=== PATIENT | male | born 1985 | race Caucasian/White ===

== ENCOUNTER 2024-01-23 17:34 | Emergency (ER) | payer OTHER, SELFPAY ==
[2024-01-23 17:43] VITALS: BP 115/79; PULSE 107; TEMP 36.9; O2SAT 97; BMI 24.6
--- NOTE | 2024-01-23 17:55 | CT_ITS ---
[address] [address] Patient Name: LAWANDA RAND MRN: [id number] date: 1985 Sex: M Assigned Patient Location: ER Current Patient Location: ER Accession/Order Number: [id number] Exam Date: 01/23/2024 18:15 Report Date: 01/23/2024 19:39 At the request of: MARY THORNTON Procedure: CT facial bones wo con EXAM: CT facial bones wo con COMPARISON: None available. CLINICAL INDICATION: Left facial swelling after nasal fracture TECHNIQUE: Multiplanar CT images of the facial bones without contrast. Dose reduction techniques were achieved by using automated exposure control and/or adjustment of mA and/or kV according to patient size and/or use of iterative reconstruction technique. FINDINGS: Acute-subacute nasal bone fracture noted. Specifically acute-subacute mildly comminuted minimally displaced/angulated fracture of the left nasal bone. Leftward deviation of the nasal septum with apparent nasal septal fracture on coronal image 7. Acute-subacute comminuted mildly displaced fracture of the left inferior orbital wall as well as the anterior and medial kirby of the left maxillary sinus. Mild-moderate opacification of the left inferior maxillary sinus. Paranasal sinuses otherwise clear. Mastoid air cells clear. Mild left infraorbital-paramaxillary soft tissue swelling and mild paranasal soft tissue swelling. No left retrobulbar hematoma. CT/CT facial bones wo con IMPRESSION: 1. Acute-subacute nasal bone fracture detailed above. 2. Acute-subacute comminuted mildly displaced fracture of the left inferior orbital wall and the anterior and medial kirby of the left maxillary sinus. 3. Mild left infraorbital-paramaxillary soft tissue swelling and mild paranasal soft tissue swelling. No left retrobulbar hematoma. Electronically authenticated by: ZANE CASTELLANO Date: 01/23/2024 19:39
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
[2024-01-23 18:20] LABS: Basophils Percent Auto 0.4 % (0.2-2.0); Eosinophils Absolute Auto 0.1 10^3/uL (0.0-0.7); Eosinophils Percent Auto 0.7 % (0.9-7.0); Hematocrit 45.4 % (42.0-54.0); Hemoglobin 15.4 g/dL (14.0-18.0); Immature Granulocytes Abs Auto 0.02 10^3/uL (0.00-0.03); Immature Granulocytes Pct Auto 0.3 % (0.0-0.5); Lymphocytes Absolute Auto 1.5 10^3/uL (1.2-3.8); Lymphocytes Percent Auto 20.2 % (20.5-60.0); Mean Corpuscular HGB Conc 33.9 g/dL (29.9-35.2); Mean Corpuscular Hemoglobin 30.8 pg (25.9-34.0); Mean Corpuscular Volume 90.8 fL (80.0-94.0); Monocytes Absolute Auto 0.7 10^3/uL (0.3-0.8); Monocytes Percent Auto 9.6 % (1.7-12.0); Neutrophils Absolute Auto 5.1 10^3/uL (1.4-6.5); Neutrophils Percent Auto 68.8 % (43.0-75.0); Platelet Count 346 10^3/uL (150-450); Red Cell Distribution Width 13.5 % (11.0-15.0); White Blood Count 7.5 10^3/uL (4.0-11.0)
[2024-01-23 18:31] LABS: Anion Gap 14.4; Calcium 9.4 mg/dL (8.5-10.1); Carbon Dioxide 27.3 mmol/L (21.0-32.0); Chloride 100 mmol/L (98-107); Estimated GFR (African America >60 (>=60); Estimated GFR (Non-African Ame 54 (>=60); Glucose 98 mg/dL (74-106); Potassium 4.7 mmol/L (3.5-5.1); Sodium 137 mmol/L (136-145)
== END 2024-01-23 20:17 | disposition home or self-care (01) ==
PROVIDERS: Physician Assistant; Emergency Provider Emergency Medicine; PCP Family Medicine
DX: S02.32XA Fracture of orbital floor, left side, initial encounter for closed fracture (principal); S02.19XA Other fracture of base of skull, initial encounter for closed fracture; S02.2XXA Fracture of nasal bones, initial encounter for closed fracture; W50.0XXA Accidental hit or strike by another person, initial encounter
CPT/HCPCS: 36415; 70486; 80048; 85025; 99284

== ENCOUNTER 2024-05-05 07:04 | Outpatient (OUT) | payer OTHER, SELFPAY ==
--- NOTE | 2024-05-05 | MR_ITS ---
The [address] [address] Patient Name: LAWANDA RAND MRN: [id number] date: 1985 Sex: M Assigned Patient Location: CARD Current Patient Location: CARD Accession/Order Number: [id number] Exam Date: 05/05/2024 07:48 Report Date: 05/05/2024 11:29 At the request of: RANDY BOSCH Procedure: MR head/brain wo con EXAM: MR head/brain wo con HISTORY: Memory loss COMPARISON: None. TECHNIQUE: MRI of the brain was performed without contrast. FINDINGS: There is no restricted diffusion to suggest acute infarct. There is no midline shift, mass effect, or abnormal extraaxial fluid collections. The cortical sulci and ventricular system are within normal limits. There is focal enlargement of CSF space posterior to the cerebellum, likely represent jason cisterna magna or arachnoid cyst. The major intracranial flow voids are visualized. The cerebellar tonsils are normal in position. The orbits are unremarkable. The paranasal sinuses show no air-fluid level. The mastoid air cells are clear. The calvarium and extracranial soft tissues are unremarkable. MR/MR head/brain wo con IMPRESSION: No acute intracranial abnormality. No evidence for a specific neurodegenerative process. Electronically authenticated by: GHULAM ARREDONDO Date: 05/05/2024 11:29
--- NOTE | 2024-05-05 | XR_ITS ---
The [address] [address] Patient Name: LAWANDA RAND MRN: [id number] date: 1985 Sex: M Assigned Patient Location: CARD Current Patient Location: CARD Accession/Order Number: [id number] Exam Date: 05/05/2024 08:25 Report Date: 05/05/2024 08:47 At the request of: RANDY BOSCH Procedure: XR chest 2V PROCEDURE: XR chest 2V DATE: 05/05/2024 7:25 AM CDT COMPARISONS: None. CLINICAL INDICATION: 38 years Male Acute bronchitis FINDINGS: The cardiomediastinal silhouette and pulmonary vasculature are within normal limits. The lungs are clear. There is no evidence of pleural effusion or pneumothorax. XR/XR chest 2V IMPRESSION: Chest radiograph is within normal limits. Electronically authenticated by: CAESAR LOTT Date: 05/05/2024 08:47
--- NOTE | 2024-05-05 07:07 | CA_ITS ---
Patient Name: LAWANDA RAND MR#: [id number] : 1985 Exam Date: 05/05/2024 Ordering Doctor: DR RANDY BOSCH . ECHOCARDIOGRAM REPORT PROCEDURE: CA ECHO DOPPLER COMPLETE INDICATIONS: Hypotension COMPARISON: None. DESCRIPTION: COMPLETE ECHOCARDIOGRAM Real-time transthoracic echocardiography with 2D, M-mode, spectral and color flow Doppler performed. QUALITY: Technical quality was good. LEFT VENTRICLE: Normal chamber size. Normal left ventricular wall thickness. LV EF: Global left ventricular systolic function is normal. Calculated left ventricular ejection fraction is 60%. No wall motion abnormalities. DIASTOLIC: Normal diastolic function. ATRIAL SEPTUM: Inadequately seen. LEFT ATRIUM: Normal chamber size. RIGHT ATRIUM: Normal chamber size. RIGHT VENTRICLE: Normal chamber size. Normal right ventricular systolic function. TRICUSPID VALVE: Normal mobility and thickness. No stenosis with trivial regurgitation. No evidence of pulmonary hypertension. RVSP 18mmHg MITRAL VALVE: Normal mobility and thickness. No evidence of mitral valve stenosis. There is no mitral annular calcification. Trivial mitral regurgitation. AORTIC VALVE: Normal trileaflet appearance. No visible sclerosis. Normal leaflet mobility. No evidence of aortic valve stenosis. No aortic regurgitation. AORTIC ROOT: Normal diameter and appearance. PULMONIC VALVE: Normal thickness and mobility. No stenosis. No regurgitation. PERICARDIUM: No evidence of pericardial effusion. CONCLUSION: 1. Global left ventricular systolic function is normal; visually estimated ejection fraction is 60 to 65% 2. Normal right ventricular size and systolic function 3. Normal diastolic function 4. The left atrium is normal in size 5. No obvious valvular abnormalities Adult Echocardiography Procedure Report Left Ventricle LVEDD (3.7 - 5.6 cm): 3.94 cm LVESD (2.2 - 4.0 cm): 2.71 cm LVIVS thickness (0.6 - 1.2 cm): 0.86 cm LVPW thickness (0.5 - 1.0 cm): 0.84 cm e': 0.13 m/s E - e': 5.22 LVOT Max Gradient: 2.95 mm[Hg], 2.95 mm[Hg] LVOT Area (cm2): 0.86 m/s Peak Velocity (LVOT): 0.86 m/s, 0.86 m/s Mean Velocity (LVOT): 0.62 m/s LVOT Diameter 2.14 cm Left Ventricular Ejection Fraction: 59.81 % Left Atrium LA Volume Index (2D A2C): 20.01 ml/m2 Left Atrium Systolic Dimension: 2.75 cm Mitral Valve MV E to A Ratio: 0.98 Mitral Valve A-Wave Peak Velocity: 0.69 m/s Mitral Valve E-Wave Peak Velocity: 0.67 m/s Right Ventricle RV Internal Diastolic Dimension: 2.85 cm Aorta AO Root Diam: 3.19 cm Ascending Ao Diam: 3.14 cm Aortic Valve AoV Area (Peak Chilo): 3.15 cm2, 3.15 cm2 AoV Area (VTI): 3.94 cm2, 3.88 cm2 Peak Velocity(Antegrade Flow): 0.98 m/s Peak Gradient(Antegrade Flow): 3.85 mm[Hg] Mean Velocity(Antegrade Flow): 0.67 m/s Mean Gradient(Antegrade Flow): 2.07 mm[Hg] Velocity Time Integral: 14.59 cm Tricuspid Valve Peak Velocity (Regurgitant Flow): 1.96 m/s, 1.70 m/s, 1.92 m/s, 1.93 m/s, 1.96 m/s Pulmonic Valve Peak Velocity: 0.86 m/s Peak Gradient: 2.94 mm[Hg], 2.99 mm[Hg] Right Atrium Right Atrium Systolic Pressure: 27.31 ml, 27.31 ml Dictated by: Ngozi Rainey M.D. on 05/07/2024 at 16:33 Approved by: Ngozi Rainey M.D. on 05/07/2024 at 16:38
--- OUTSIDE RECORDS SUMMARY | 2024-05-05 07:08 | XMS_ITS | CCD ---
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 Condition ([place]) What reading provider will be dictating this exam?->CRC No acute intracrania l abnormality. Soft tissue swelling in the right frontoparietal region. [facility] EXAMINATION: CT OF THE HEAD WITHOUT CONTRAST 07/08/2021 7:35 pm TECHNIQUE: CT of the head was performed without the administration of intravenous contrast. Dose modulation, iterative reconstruction, and/or weight based adjustment of the mA/kV was utilized to reduce the radiation dose to as low as reasonably achievable. COMPARISON: None. HISTORY: ORDERING SYSTEM PROVIDED HISTORY: Trauma TECHNOLOGIST PROVIDED HISTORY: Has a code stroke or stroke alert been called?->No Reason for exam:->Trauma Decision Support Exception - unselect if not a suspected or confirmed emergency medical condition->Emergency Medical Condition ([place]) What reading provider will be dictating this exam?->CRC FINDINGS: BRAIN/VENTRICLES: There is no acute intracranial hemorrhage, mass effect or midline shift. No abnormal extra-axial fluid collection. The sarmiento-white differentiation is maintained without evidence of an acute infarct. There is no evidence of hydrocephalus. ORBITS: The visualized portion of the orbits demonstrate no acute abnormality. SINUSES: Th there is mucosal thickening in right maxillary sinus. SOFT TISSUES/SKULL: No acute abnormality of the visualized skull. There is soft tissue swelling in the right frontoparietal region. [facility] Sonny Domingo MD - 07/08 EXAMINATION: CT OF THE HEAD WITHOUT CONTRAST 07/08/2021 7:35 pm TECHNIQUE: CT of the head was performed without the administration of intravenous contrast. Dose modulation, iterative reconstruction, and/or weight based adjustment of the mA/kV was utilized to reduce the radiation dose to as low as reasonably achievable. COMPARISON: None. HISTORY: ORDERING SYSTEM PROVIDED HISTORY: Trauma TECHNOLOGIST PROVIDED HISTORY: Has a code stroke or stroke alert been called?->No Reason for exam:->Trauma Decision Support Exception - unselect if not a suspected or confirmed emergency medical condition->Emergency Medical Condition ([place]) What reading provider will be dictating this exam?->CRC FINDINGS: BRAIN/VENTRICLES: There is no acute intracranial hemorrhage, mass effect or midline shift. No abnormal extra-axial fluid collection. The sarmiento-white differentiation is maintained without evidence of an acute infarct. There is no evidence of hydrocephalus. ORBITS: The visualized portion of the orbits demonstrate no acute abnormality. SINUSES: Th there is mucosal thickening in right maxillary sinus. SOFT TISSUES/SKULL: No acute abnormality of the visualized skull. There is soft tissue swelling in the right frontoparietal region. IMPRESSION: No acute intracranial abnormality. Soft tissue swelling in the right frontoparietal region. [employer] Phone: CT HEAD WO CONTRASTOrdered B y: Sonny Domingo on 07-08-2021 [employer] Phone: No Panel Informationon 07-08 Radiology Study observation (narrative) [employer] Phone: THC,Serum/Plasma,[place] 05-23 Cannabinoids, S/P 62 ng/mL Normal [place] Comment on above: Result Comment: (NOT E) INTERPRETIVE INFORMATION: THC Metabolite, Serum or Plasma, Quantitative Methodology: Quantitative Liquid Chromatography-Tandem Mass Spectrometry. Positive cutoff: 5 ng/mL For medical purposes only; not valid for forensic use. The drug analyte detected in this assay, 9-carboxy THC, is a metabolite of ywdux-0-bhmqzdvdadmvpmveusmt (THC). Detection of 9-carboxy THC suggests use of, or exposure to, a product containing THC. This test cannot distinguish between prescribed or non-prescribed forms of THC, nor can it distinguish between active or passive use. The plasma half-life for 9-carboxy THC metabolite is estimated to range from 4-12 hours. Test developed and characteristics determined by [employer]. See Compliance Statement B: [employer] Performed By: [employer] [address] [place] [id number] [employer]: Terese Muniz MD Performed By: #### C DP, CP, LIPR, TSHX, TREP, HIVCMB, HSVPR #### [address] [address] Box Folding Machine Operator: Satya Valdez MD #### AHCGEN #### [address] [address] Box Folding Machine Operator: Remi Harman MD Amphetamine, Serumon 020 Amphetamine <20 Normal [facility] Comment on above: Result Comment: (NOT E) INTERPRETIVE INFORMATION: Amphetamines, Serum or Plasma, Quantitative Methodology: Quantitative Liquid Chromatography-Tandem Mass Spectrometry Positive cutoff: 20 ng/mL For medical purposes only; not valid for forensic use. The absence of expected drug(s) and/or drug metabolite(s) may indicate non-compliance, inappropriate timing of specimen collection relative to drug administration, poor drug absorption, or limitations of testing. The concentration value must be greater than or equal to the cutoff to be reported as positive. Interpretive questions should be directed to the laboratory. Test developed and characteristics determined by [employer]. See Compliance Statement B: [employer] Performed By: #### C DP, CP, LIPR, TSHX, TREP, HIVCMB, HSVPR #### [address] [address] Box Folding Machine Operator: Satya Valdez MD #### AHCGEN #### [facility] [address] [employer] [address] [place] [address] [phone] Box Folding Machine Operator: Remi Harman MD M.dioxyamphetamin e <20 Normal [facility] Comment on above: Performed By: #### C DP, CP, LIPR, TSHX, TREP, HIVCMB, HSVPR #### [address] [address] Box Folding Machine Operator: Satya Valdez MD #### AHCGEN #### [facility] [address] [place] [address] Box Folding Machine Operator: MD Alvin Meléndez.dioxyethylamphe t <20 Normal [facility] Comment on above: Result Comment: (NOT E) Performed By: [address] [address] [employer] Marketing: Terese Muniz MD Performed By: #### C DP, CP, LIPR, TSHX, TREP, HIVCMB, HSVPR #### [address] [address] Box Folding Machine Operator: Satya Valdez MD #### AHCGEN #### [facility] [address] [place] [address] Box Folding Machine Operator: MD Alvin Meléndez.dioxymethylamph et <20 [facility] Comment on above: Performed By: #### C DP, CP, LIPR, TSHX, TREP, HIVCMB, HSVPR #### [address] [address] Box Folding Machine Operator: Satya Valdez MD #### AHCGEN #### [address] [address] Box Folding Machine Operator: Remi Harman MD Methamphetamine 462 ng/mL [facility] Comment on above: Result Comment: (NOT E) Consistent with use of a drug containing methamphetamine. Methamphetamine is metabolized to amphetamine. Amphetamine and methamphetamine exist in d- and l-isomeric forms. These forms are not distinguished by this test. Isomeric separation is available separately for an additional charge. Performed By: #### C DP, CP, LIPR, TSHX, TREP, HIVCMB, HSVPR #### [address] [address] Box Folding Machine Operator: Satya Valdez MD #### AHCGEN #### [facility] [address] [place] [phone] Box Folding Machine Operator: Remi Harman MD HCV Genotype, PCRon 05-21-20 20 HCV Genotype, PCR 2b Normal [place] Comment on above: Result Comment: (NOT E) INTERPRETIVE INFORMATION: Hepatitis C Genotyping Hepatitis C Viral RNA is tested using reverse occupational health physiotherapist polymerase chain reaction (RT-PCR) to amplify a specific portion of the 5' untranslated region (5' UTR) of the viral genome. The amplified nucleic acid is sequenced bi-directionally using dye-terminator chemistry (Intrallect). Sequencing data is compared to a database of characterized sequences. Isolates of hepatitis C virus are grouped into six major genotypes (1-6). These genotypes are subtyped according to sequence characteristics. Due to high conservation of the 5' un-translated region of the HCV genome, this test has limitations in differentiating subtype 1a from 1b. Therefore, these subtypes will be reported as 1a or 1b. In rare instances, Type 6 virus may be misclassified as Type 1. Test developed and characteristics determined by [employer]. See Compliance Statement B: [employer] Performed By: [employer] [address] [place] [id number] [employer]vp Marketing: Terese Muniz MD Performed By: #### C DP, CP, LIPR, TSHX, TREP, HIVCMB, HSVPR #### [facility] [address] [place] [address] Box Folding Machine Operator: Satya Valdez MD #### AHCGEN #### [employer] [address] [place] [address] Box Folding Machine Operator: Remi Harman MD Liver Fibrosis Panelon 05-21 A2 Macroglob, Fibro 240 mg/dL Normal 131-293 [facility] Comment on above: Performed By: #### C DP, CP, LIPR, TSHX, TREP, HIVCMB, HSVPR #### [facility] [address] [place] [address] [phone] Box Folding Machine Operator: Satya Valdez MD #### AHCGEN #### [employer] [address] [place] [phone] Box Folding Machine Operator: Remi Harman MD ALT, Fibro 58 U/L High 5-50 [facility] Comment on above: Performed By: #### C DP, CP, LIPR, TSHX, TREP, HIVCMB, HSVPR #### [address] [phone] Box Folding Machine Operator: Satya Valdez MD #### AHCGEN #### [facility] [address] [place] [phone] Box Folding Machine Operator: Remi Harman MD AST, Fibro 38 U/L Normal 9-50 [facility] Comment on above: Performed By: #### C DP, CP, LIPR, TSHX, TREP, HIVCMB, HSVPR #### [address] [phone] Box Folding Machine Operator: Satya Valdez MD #### AHCGEN #### [facility] [address] [place] [phone] Box Folding Machine Operator: Remi Harman MD CirrhM Patient Score 0 Normal [facility] Comment on above: Performed By: #### C DP, CP, LIPR, TSHX, TREP, HIVCMB, HSVPR #### [address] [phone] Box Folding Machine Operator: Satya Valdez MD #### AHCGEN #### [facility] [address] [place] [address] [phone] Box Folding Machine Operator: Remi Harman MD EER Fibro Rpt See Note Normal [facility] Comment on above: Result Comment: (NOT E) Access [email or web address] Enhanced Report using either link below: -Direct access: [email or web address] -Enter Username, Password: [email or web address] Route Username: [email or web address] Password: [email or web address] Performed By: #### C DP, CP, LIPR, TSHX, TREP, HIVCMB, HSVPR #### [facility] [address] [place] [address] Box Folding Machine Operator: Satya Valdez MD #### AHCGEN #### [facility] [address] [place] [address] Box Folding Machine Operator: Remi Harman MD Fibro Interpretation See Report Normal [facility] Comment on above: Result Comment: (NOT E) [17] [16] INTERPRETIVE INFORMATION: Fibrometer Interpretation Calculations for the final report are based on accurate data for age, gender, and platelet count. If any of this information needs to be corrected, please contact [employer] Client Services to request a recalculation. Client Services may be contacted at . The [employer] FibroMeter profile serves as a surrogate marker of liver fibrosis, cirrhosis, and necro-inflammatory activity. A proprietary algorithm calculates and compares results from 7 blood markers along with age and gender to provide a patient score (from 0 to 1) and a correlated fibrosis stage (Metavir F0-F4) and activity grade (Metavir A0-A3). The fibrosis/cirrhosis score is further evaluated by a rules-based system to detect anomalous profile results which may modify the fibrosis/cirrhosis score as needed. Results should be interpreted in conjunction with the patient's clinical history; particularly when the rules-based system has modified the scores. Legend: -Metavir is a histological scoring system for determining the extent of liver fibrosis and inflammation. STAGE OF FIBROSIS (F scale) F0 = no fibrosis F1 = portal fibrosis without septa F2 = portal fibrosis with few septa F3 = numerous septa without cirrhosis F4 = cirrhosis GRADE OF NECRO-INFLAMMATORY ACTIVITY (A scale) A0 = no activity A1 = mild activity A2 = moderate activity A3 = severe activity -Platelet count result provided by client. -The Prothrombin Index test expresses the Prothrombin Time (PT) as a percentage of normal, and is used to standardize PT results across different instrument/reagent combinations. Test developed and characteristics determined by [employer]. See Compliance Statement B: [employer] Performed By: [employer] [address] [place] [id number] Svp Marketing: Terese Muniz MD Performed By: #### C DP, CP, LIPR, TSHX, TREP, HIVCMB, HSVPR #### [address] [address] Box Folding Machine Operator: Satya Valdez MD #### [place] #### [facility] [address] [place] [address] Box Folding Machine Operator: Remi Harman MD Fibro Metavir Class SEE NOTE Normal [facility] Comment on above: Result Comment: (NOT E) Results for Fibrosis Metavir Classification: F1[F1-F2] INTERPRETIVE INFORMATION: Fibrosis Metavir Classification FibroMeter (fibrosis score) comments F0/F1 Equal probability between F0 and F1 F1[F1-F2] Predominance of F1, but F2 is possible F2[F1-F2] Predominance of F2, but F1 is possible F2[F1-F3] Predominance of F2, but F1 and F3 are possible F2/F3 Equal probability between F2 and F3 F3[F2-F4] Predominance of F3, but F2 and F4 are possible F3[F3-F4] Predominance of F3, but F4 is possible F4[F3-F4] Predominance of F4, but F3 is possible Performed By: #### C DP, CP, LIPR, TSHX, TREP, HIVCMB, HSVPR #### [address] [address] Box Folding Machine Operator: Satya Valdez MD #### [place] #### [facility] [address] [place] [address] Box Folding Machine Operator: Remi Harman MD FibroM Patient Score 0.19 Normal [facility] Comment on above: Performed By: #### C DP, CP, LIPR, TSHX, TREP, HIVCMB, HSVPR #### [address] [address] Box Folding Machine Operator: Satya Valdez MD #### AHCGEN #### [facility] [address] [place] [address] Box Folding Machine Operator: Remi Harman MD GGT, Fibro 26 U/L Normal 7-51 [facility] Comment on above: Performed By: #### C DP, CP, LIPR, TSHX, TREP, HIVCMB, HSVPR #### [address] [address] Box Folding Machine Operator: Satya Valdez MD #### AHCGEN #### [facility] [address] [place], [place] [phone] Box Folding Machine Operator: Remi Harman MD InflaM Metavir Class A1/A2 Normal [facility] Comment on above: Result Comment: (NOT E) INTERPRETIVE INFORMATION: InflaMeter Metavir Classification InflaMeter (activity score) comments A0/A1 Equal probability between A0 and A1 A1/A2 Equal probability between A1 and A2 A2/A3 Equal probability between A2 and A3 Performed By: #### C DP, CP, LIPR, TSHX, TREP, HIVCMB, HSVPR #### [address] [address] Box Folding Machine Operator: Satya Valdez MD #### AHCGEN #### [address] [address] Box Folding Machine Operator: Remi Harman MD InflaM Patient Score 0.28 Normal [facility] Comment on above: Performed By: #### C DP, CP, LIPR, TSHX, TREP, HIVCMB, HSVPR #### [address] [address] Box Folding Machine Operator: Satya Valdez MD #### AHCGEN #### [facility] [address] [place] [address] Box Folding Machine Operator: Remi Harman MD Prothrombin Index 103 % Normal 90-120 [place] Comment on above: Performed By: #### C DP, CP, LIPR, TSHX, TREP, HIVCMB, HSVPR #### [address] [address] Box Folding Machine Operator: Satya Valdez MD #### AHCGEN #### [facility] [address] [place] [address] Box Folding Machine Operator: Remi Harman MD Urea nitrogen [Mass/Vol] 17 mg/dL Normal 7-20 [facility] Comment on above: Performed By: #### C DP, CP, LIPR, TSHX, TREP, HIVCMB, HSVPR #### [address] [address] Box Folding Machine Operator: Satya Valdez MD #### AHCGEN #### [address] [address] Box Folding Machine Operator: Remi Harman MD Drugs of Abuse, S/Ed 2019 Amphetamines, S/P Positive Normal Cutoff 20 [place] Comment on above: Result Comment: (NOT E) If the screen is positive, then confirmation by mass spectrometry will be added. Additional charges will apply. Unconfirmed positive may be useful for medical purposes, but does not meet forensic standards. Performed By: #### C DP, CP, LIPR, TSHX, TREP, HIVCMB, HSVPR #### [address] [address] Box Folding Machine Operator: Satya Valdez MD #### AHCGEN #### [facility] [address] [place] [phone] Box Folding Machine Operator: Remi Harman MD Barbiturates, S/P Negative Normal Cutoff 50 [place] Comment on above: Performed By: #### C DP, CP, LIPR, TSHX, TREP, HIVCMB, HSVPR #### [address] [address] Box Folding Machine Operator: Satya Valdez MD #### AHCGEN #### [facility] [address] [place] [phone] Box Folding Machine Operator: Remi Harman MD Benzodiazepines, S/P Negative Normal Cutoff 50 [facility] Comment on above: Performed By: #### C DP, CP, LIPR, TSHX, TREP, HIVCMB, HSVPR #### [address] [address] Box Folding Machine Operator: Satya Valdez MD #### AHCGEN #### [address] [phone] Box Folding Machine Operator: Remi Harman MD Buprenorphine, S/P Negative Normal Cutoff 1 [facility] Comment on above: Performed By: #### C DP, CP, LIPR, TSHX, TREP, HIVCMB, HSVPR #### [address] [phone] Box Folding Machine Operator: Satya Valdez MD #### AHCGEN #### [address] [phone] Box Folding Machine Operator: Remi Harman MD Cocaine, Serum/Plas Negative Normal Cutoff 20 [facility] Comment on above: Performed By: #### C DP, CP, LIPR, TSHX, TREP, HIVCMB, HSVPR #### [address] [id number] Box Folding Machine Operator: Satya Valdez MD #### AHCGEN #### [address] [phone] Box Folding Machine Operator: Remi Harman MD Comment See Note Normal [facility] Comment on above: Result Comment: (NOT E) INTERPRETIVE INFORMATION: Drug Screen 9 Panel, Serum or Plasma - Immunoassay Screen with Reflex to Mass Spectrometry Confirmation/Quantitation 1. Methodology: Qualitative Immunoassay Screen 2. Drugs/Drug classes reported as Positive are automatically reflexed to mass spectrometry confirmation/quantitation testing. An immunoassay unconfirmed positive screen result may be useful for medical purposes but does not meet forensic standards. 3. The absence of expected drug(s) and/or drug metabolite(s) may indicate non-compliance, inappropriate timing of specimen collection relative to drug administration, poor drug absorption, or limitations of testing. The concentration at which the screening test can detect a drug or metabolite varies within a drug class. Specimens for which drugs or drug classes are detected by the screen are automatically reflexed to a second, more specific technology (mass spectrometry). The concentration value must be greater than or equal to the cutoff to be reported as positive. Interpretive questions should be directed to the laboratory. 4. For medical purposes only; not valid for forensic use. Test developed and characteristics determined by [employer]. See Compliance Statement B: GRAM [employer]quisition.[facility]/CS Performed By: [employer] [address] [place] [id number] [employer]vp Marketing: Terese Muniz MD Performed By: #### C DP, CP, LIPR, TSHX, TREP, HIVCMB, HSVPR #### [facility] [address] [phone] Box Folding Machine Operator: Satya Valdez MD #### AHIshmaelGEN #### [employer] [address] [place] [address] Box Folding Machine Operator: Remi Harman MD Methadone, S/P Negative Normal Cutoff 25 [facility] Comment on above: Performed By: #### C DP, CP, LIPR, TSHX, TREP, HIVCMB, HSVPR #### [employer] [address] [id number] Box Folding Machine Operator: Satya Valdez MD #### AHCGEN #### [facility] [address] [place] [address] [phone] Box Folding Machine Operator: Remi Harman MD Methamphetamine,S /P Positive Normal Cutoff 20 [facility] Comment on above: Result Comment: (NOT E) If the screen is positive, then confirmation by mass spectrometry will be added. Additional charges will apply. Unconfirmed positive may be useful for medical purposes, but does not meet forensic standards. Performed By: #### C DP, CP, LIPR, TSHX, TREP, HIVCMB, HSVPR #### [address] [address] Box Folding Machine Operator: Satya Valdez MD #### AHCGEN #### [address] [phone] Box Folding Machine Operator: Remi Harman MD Opiates, Serum/Plas Negative Normal Cutoff 20 [facility] Comment on above: Performed By: #### C DP, CP, LIPR, TSHX, TREP, HIVCMB, HSVPR #### [address] [address] Box Folding Machine Operator: Satya Valdez MD #### AHCGEN #### [address] [phone] Box Folding Machine Operator: Remi Harman MD Oxycodone, S/P Negative Normal Cutoff 20 [facility] Comment on above: Performed By: #### C DP, CP, LIPR, TSHX, TREP, HIVCMB, HSVPR #### [address] [address] Box Folding Machine Operator: Satya Valdez MD #### AHCGEN #### [address] [phone] Box Folding Machine Operator: Remi Harman MD Phencyclidine, S/P Negative Normal Cutoff 10 [facility] Comment on above: Performed By: #### C DP, CP, LIPR, TSHX, TREP, HIVCMB, HSVPR #### [address] [address] Box Folding Machine Operator: Satya Valdez MD #### AHCGEN #### [address] [phone] Box Folding Machine Operator: Remi Harman MD THC, Serum/Plasma Positive Normal Cutoff 20 [place] Comment on above: Result Comment: (NOT E) If the screen is positive, then confirmation by mass spectrometry will be added. Additional charges will apply. Unconfirmed positive may be useful for medical purposes, but does not meet forensic standards. Performed By: #### C DP, CP, LIPR, TSHX, TREP, HIVCMB, HSVPR #### [address] [address] Box Folding Machine Operator: Satya Valdez MD #### AHCGEN #### [address] [phone] Box Folding Machine Operator: Remi Harman MD HCV RNA,Quant,PCRon 05-19-20 20 HCV RNA,Quant,PCR Specimen Description .PLASMA Special Requests NOT REPORTED Direct Exam HCV RNA DETECTED [id number] IU/ML (6.94 LOG IU/ML) This test is a sensitive method for quantitating HCV RNA viral loads in plasma. It utilizes RT-PCR in the FDA approved Martina Ampliprep/Taqman 48 System. This test is intended for detecting and quantifying HCV RNA viral loads in the range of 15 IU/mL to 100,000,000 IU/mL (1.18 log IU/mL to 8.00 log IU/mL). Patients should have confirmed HCV infection prior to RNA quantification. This test has been developed to monitor disease progression and efficacy of anti-HCV drug therapy. This test has been optimized for HCV genotypes 1-6. Results reported to the appropriate Health Department Report Status FINAL 05/19/2020 Normal [facility] Comment on above: Performed By: #### C DP, CP, LIPR, TSHX, TREP, HIVCMB, HSVPR #### [facility] [address] [place] [address] Box Folding Machine Operator: Satya Valdez MD #### AHCGEN #### [facility] [address] [place] [address] Box Folding Machine Operator: Remi Harman MD CBCon 05-18-2020 Erythrocyte distribution width (RBC) [Ratio] 12.8 % Normal 11.8-14.4 [facility] Comment on above: Performed By: #### C DP, CP, LIPR, TSHX, TREP, HIVCMB, HSVPR #### [facility] [address] [place] [address] Box Folding Machine Operator: Satya Valdez MD #### AHCGEN #### [facility] [address] [place], [place] [phone] Box Folding Machine Operator: Remi Harman MD Hematocrit (Bld) [Volume fraction] 44.0 % Normal 40.7-50.3 [facility] Comment on above: Performed By: #### C DP, CP, LIPR, TSHX, TREP, HIVCMB, HSVPR #### [address] [address] Box Folding Machine Operator: Satya Valdez MD #### AHCGEN #### [facility] [address] [place], [place] [phone] Box Folding Machine Operator: Remi Harman MD Hemoglobin (Bld) [Mass/Vol] 14.6 g/dL Normal 13.0-17.0 [facility] Comment on above: Performed By: #### C DP, CP, LIPR, TSHX, TREP, HIVCMB, HSVPR #### [address] [address] Box Folding Machine Operator: Satya Valdez MD #### AHCGEN #### [facility] [address] [place], [place] [phone] Box Folding Machine Operator: Remi Harman MD MCH (RBC) [Entitic mass] 31.1 pg Normal 25.2-33.5 [facility] Comment on above: Performed By: #### C DP, CP, LIPR, TSHX, TREP, HIVCMB, HSVPR #### [address] [address] Box Folding Machine Operator: Satya Valdze MD #### AHCGEN #### [facility] [address] [place], [place] [phone] Box Folding Machine Operator: Remi Harman MD MCHC (RBC) [Mass/Vol] 33.2 g/dL Normal 28.4-34.8 [facility] Comment on above: Performed By: #### C DP, CP, LIPR, TSHX, TREP, HIVCMB, HSVPR #### [address] [address] Box Folding Machine Operator: Satya Valdez MD #### AHCGEN #### [facility] [address] [place] [address] Box Folding Machine Operator: Remi Harman MD MCV (RBC) [Entitic vol] 93.6 fL Normal 82.6-102.9 [facility] Comment on above: Performed By: #### C DP, CP, LIPR, TSHX, TREP, HIVCMB, HSVPR #### [place] [address] Box Folding Machine Operator: Satya Valdez MD #### AHCGEN #### [facility] [address] [place], [place] [phone] Box Folding Machine Operator: Remi Harman MD NRBC Automated 0.0 per 100 WBC Normal 0.0 [facility] Comment on above: Performed By: #### C DP, CP, LIPR, TSHX, TREP, HIVCMB, HSVPR #### [place] [address] Box Folding Machine Operator: Satya Valdez MD #### AHCGEN #### [facility] [address] [place], [place] [phone] Box Folding Machine Operator: Remi Harman MD Platelet mean volume (Bld) [Entitic vol] 10.3 fL Normal 8.1-13.5 [facility] Comment on above: Performed By: #### C DP, CP, LIPR, TSHX, TREP, HIVCMB, HSVPR #### [address] [address] Box Folding Machine Operator: Satya Valdez MD #### AHCGEN #### [facility] [address] [place] [address] Box Folding Machine Operator: Remi Harman MD Platelets (Bld) [#/Vol] 293 10*3/uL Normal 138-453 [facility] Comment on above: Performed By: #### C DP, CP, LIPR, TSHX, TREP, HIVCMB, HSVPR #### [facility] [address] [place] [address] Box Folding Machine Operator: Satya Valdez MD #### AHCGEN #### [facility] [address] [place] [address] Box Folding Machine Operator: Remi Harman MD RBC (Bld) [#/Vol] 4.70 10*6/uL Normal 4.21-5.77 [facility] Comment on above: Performed By: #### C DP, CP, LIPR, TSHX, TREP, HIVCMB, HSVPR #### [address] [address] Box Folding Machine Operator: Satya Valdez MD #### AHCGEN #### [facility] [address] [place] [address] Box Folding Machine Operator: Remi Harman MD WBC (Bld) [#/Vol] 6.1 10*3/uL Normal 3.5-11.3 [facility] Comment on above: Performed By: #### C DP, CP, LIPR, TSHX, TREP, HIVCMB, HSVPR #### [address] [address] Box Folding Machine Operator: Satya Valdez MD #### AHCGEN #### [facility] [address] [place] [address] Box Folding Machine Operator: Remi Harman MD Comp Metabolic Profon 2019 (cont.) Normal [facility] Comment on above: Result Comment: Aver age GFR for 30-39 years old: 107 mL/min/1.73sq m Chronic Kidney Disease: <60 mL/min/1.73sq m Kidney failure: <15 mL/min/1.73sq m eGFR calculated using average adult body mass. Additional eGFR calculator available at: http://www.[employer]/multiple_crcl_2012.htm Performed By: #### C DP, CP, LIPR, TSHX, TREP, HIVCMB, HSVPR #### [address] [address] Box Folding Machine Operator: Satya Valdez MD #### AHCGEN #### [facility] [address] [place], [place] [phone] Box Folding Machine Operator: Remi Harman MD Albumin [Mass/Vol] 4.4 g/dL Normal 3.5-5.2 [facility] Comment on above: Performed By: #### C DP, CP, LIPR, TSHX, TREP, HIVCMB, HSVPR #### [address] [address] Box Folding Machine Operator: Satya Valdez MD #### AHCGEN #### [facility] [address] [place], [place] [phone] Box Folding Machine Operator: Remi Harman MD Albumin/Globulin [Mass ratio] 1.9 {ratio} Normal 1.0-2.5 [facility] Comment on above: Performed By: #### C DP, CP, LIPR, TSHX, TREP, HIVCMB, HSVPR #### [address] [address] Box Folding Machine Operator: Satya Valdez MD #### AHCGEN #### [facility] [address] [place], [place] [phone] Box Folding Machine Operator: Remi Harman MD Alkaline Phos 63 U/L Normal 40-129 [facility] Comment on above: Performed By: #### C DP, CP, LIPR, TSHX, TREP, HIVCMB, HSVPR #### [address] [address] Box Folding Machine Operator: Satya Valdez MD #### AHCGEN #### [facility] [address] [place] [address] [phone] Box Folding Machine Operator: Remi Harman MD ALT [Catalytic activity/Vol] 50 U/L High 5-41 [facility] Comment on above: Performed By: #### C DP, CP, LIPR, TSHX, TREP, HIVCMB, HSVPR #### [address] [address] Box Folding Machine Operator: Satya Valdze MD #### AHCGEN #### [address] [phone] Box Folding Machine Operator: Remi Harman MD Anion gap [Moles/Vol] 15 mmol/L Normal 9-17 [facility] Comment on above: Performed By: #### C DP, CP, LIPR, TSHX, TREP, HIVCMB, HSVPR #### [address] [address] Box Folding Machine Operator: Satya Valdez MD #### AHCGEN #### [facility] [address] [place] [address] [phone] Box Folding Machine Operator: Remi Harman MD AST [Catalytic activity/Vol] 37 U/L Normal <40 [facility] Comment on above: Performed By: #### C DP, CP, LIPR, TSHX, TREP, HIVCMB, HSVPR #### [address] [address] Box Folding Machine Operator: Satya Valdez MD #### AHCGEN #### [facility] [address] [place] [address] [phone] Box Folding Machine Operator: Remi Harman MD Bilirubin Ql (U) 0.35 mg/dL Normal 0.3-1.2 [facility] Comment on above: Performed By: #### C DP, CP, LIPR, TSHX, TREP, HIVCMB, HSVPR #### [address] [address] Box Folding Machine Operator: Satya Valdez MD #### AHCGEN #### [facility] [address] [place] [address] Box Folding Machine Operator: Remi Harman MD Calcium [Mass/Vol] 9.6 mg/dL Normal 8.6-10.4 [facility] Comment on above: Performed By: #### C DP, CP, LIPR, TSHX, TREP, HIVCMB, HSVPR #### [address] [address] Box Folding Machine Operator: Satya Valdez MD #### AHCGEN #### [facility] [address] [place] [address] [phone] Box Folding Machine Operator: Remi Harman MD Chloride [Moles/Vol] 101 mmol/L Normal 98-107 [facility] Comment on above: Performed By: #### C DP, CP, LIPR, TSHX, TREP, HIVCMB, HSVPR #### [address] [address] Box Folding Machine Operator: Satya Valdez MD #### AHCGEN #### [facility] [address] [place] [address] [phone] Box Folding Machine Operator: Remi Harman MD CO2 [Moles/Vol] 24 mmol/L Normal 20-31 [facility] Comment on above: Performed By: #### C DP, CP, LIPR, TSHX, TREP, HIVCMB, HSVPR #### [address] [address] Box Folding Machine Operator: Satya Valdez MD #### AHCGEN #### [facility] [address] [place] [address] Box Folding Machine Operator: Remi Harman MD Creatinine [Mass/Vol] 1.26 mg/dL High 0.70-1.20 [facility] Comment on above: Performed By: #### C DP, CP, LIPR, TSHX, TREP, HIVCMB, HSVPR #### [address] [address] Box Folding Machine Operator: Satya Valdez MD #### AHCGEN #### [facility] [address] [place] [address] Box Folding Machine Operator: Remi Harman MD GFR, Amer >60 Normal >60 [facility] Comment on above: Performed By: #### C DP, CP, LIPR, TSHX, TREP, HIVCMB, HSVPR #### [address] [address] Box Folding Machine Operator: Satya Valdez MD #### AHCGEN #### [facility] [address] [place] [address] Box Folding Machine Operator: Remi Harman MD GFR,non Amer >60 Normal >60 [facility] Comment on above: Performed By: #### C DP, CP, LIPR, TSHX, TREP, HIVCMB, HSVPR #### [address] [address] Box Folding Machine Operator: Satya Valdez MD #### AHCGEN #### [facility] [address] [place] [address] Box Folding Machine Operator: Remi Harman MD Glucose [Mass/Vol] 85 mg/dL Normal 70-99 [facility] Comment on above: Performed By: #### C DP, CP, LIPR, TSHX, TREP, HIVCMB, HSVPR #### [facility] [address] [place] [address] Box Folding Machine Operator: Satya Valdez MD #### AHCGEN #### [facility] [address] [place], [place] [phone] Box Folding Machine Operator: Remi Harman MD Potassium [Moles/Vol] 4.2 mmol/L Normal 3.7-5.3 [facility] Comment on above: Performed By: #### C DP, CP, LIPR, TSHX, TREP, HIVCMB, HSVPR #### [address] [address] Box Folding Machine Operator: Satya Valdez MD #### AHCGEN #### [address] [phone] Box Folding Machine Operator: eRmi Harman MD Protein [Mass/Vol] 6.7 g/dL Normal 6.4-8.3 [facility] Comment on above: Performed By: #### C DP, CP, LIPR, TSHX, TREP, HIVCMB, HSVPR #### [address] [address] Box Folding Machine Operator: Satya Valdez MD #### AHCGEN #### [facility] [address] [place] [address] [phone] Box Folding Machine Operator: Remi Harman MD Sodium [Moles/Vol] 140 mmol/L Normal 135-144 [facility] Comment on above: Performed By: #### C DP, CP, LIPR, TSHX, TREP, HIVCMB, HSVPR #### [address] [address] Box Folding Machine Operator: Satya Valdez MD #### AHCGEN #### [facility] [address] [place] [address] Box Folding Machine Operator: Remi Harman MD Urea nitrogen [Mass/Vol] 16 mg/dL Normal 6-20 [facility] Comment on above: Performed By: #### C DP, CP, LIPR, TSHX, TREP, HIVCMB, HSVPR #### [address] [address] Box Folding Machine Operator: Satya Valdez MD #### AHCGEN #### [facility] [address] [place] [address] Box Folding Machine Operator: Remi Harman MD HIV Ag/Abon 05-18-2020 HIV Ag/Ab NONREACTIVE Normal NR [facility] Comment on above: Result Comment: No l aboratory evidence of HIV infection. If acute HIV infection is suspected, consider testing for HIV-1 RNA. Performed By: #### C DP, CP, LIPR, TSHX, TREP, HIVCMB, HSVPR #### [address] [address] Box Folding Machine Operator: Satya Valdez MD #### AHCGEN #### [facility] [address] [place] [address] Box Folding Machine Operator: Remi Harman MD Hep A Ab,IgMon 05-18-2020 Hep A Ab,IgM NONREACTIVE (NR) [facility] Comment on above: Performed By: #### C DP, CP, LIPR, TSHX, TREP, HIVCMB, HSVPR #### [address] [address] Box Folding Machine Operator: Satya Valdez MD #### AHCGEN #### [facility] [address] [place] [address] Box Folding Machine Operator: Remi Harman MD Note: Responsible Ob server programmer: [employer] AUTOFILE ([id number]) Hep B Core Abon 05-18-2020 Hep B Core Ab NONREACTIVE (NR) [facility] Comment on above: Performed By: #### C DP, CP, LIPR, TSHX, TREP, HIVCMB, HSVPR #### [address] [phone] Box Folding Machine Operator: Satya Valdez MD #### AHCGEN #### [address] [address] Box Folding Machine Operator: Remi Harman MD Note: Responsible Ob server programmer: [employer] ([id number]) Hep B Surf Abon 05-18-2020 Hep B Surf Ab <3.50 Normal <10 [facility] Comment on above: Result Comment: REFERENCE RANGE: <10.0 NON-REACTIVE/NOT IMMUNE >=10.0 REACTIVE/IMMUNE Performed By: #### C DP, CP, LIPR, TSHX, TREP, HIVCMB, HSVPR #### [address] [address] Box Folding Machine Operator: Satya Valdez MD #### NEGIN #### [address] [address] Box Folding Machine Operator: Remi Harman MD Hep B Surf Agon 05-18-2020 Hep B Surf Ag NONREACTIVE (NR) [facility] Comment on above: Performed By: #### C DP, CP, LIPR, TSHX, TREP, HIVCMB, HSVPR #### [address] [address] Box Folding Machine Operator: Satya Valdez MD #### AHCGEN #### [address] [phone] Box Folding Machine Operator: Remi Harman MD Note: Responsible Ob server programmer: [employer] ([id number]) Lipid Prof, Fastingon 2019 Cholesterol [Mass/Vol] 191 mg/dL Normal <200 [facility] Comment on above: Result Comment: Cholesterol Guidelines: <200 Desirable 200-240 Borderline >240 Undesirable Performed By: #### C DP, CP, LIPR, TSHX, TREP, HIVCMB, HSVPR #### [address] [address] Box Folding Machine Operator: Satya Valdez MD #### AHCGEN #### [facility] [address] [place], [place] [phone] Box Folding Machine Operator: Remi Harman MD Cholesterol in HDL [Mass/Vol] 55 mg/dL Normal >40 [facility] Comment on above: Result Comment: HDL Guidelines: <40 Undesirable 40-59 Borderline >59 Desirable Performed By: #### C DP, CP, LIPR, TSHX, TREP, HIVCMB, HSVPR #### [address] [address] Box Folding Machine Operator: Satya Valdez MD #### AHCGEN #### [facility] [address] [place], [place] [id number] Box Folding Machine Operator: Remi Harman MD Cholesterol in LDL [Mass/Vol] 79 mg/dL Normal 0-130 [facility] Comment on above: Result Comment: LDL Guidelines: <100 Desirable 100-129 Near to/above Desirable 130-159 Borderline >159 Undesirable Direct (measured) LDL and calculated LDL are not interchangeable tests. Performed By: #### C DP, CP, LIPR, TSHX, TREP, HIVCMB, HSVPR #### [address] [address] Box Folding Machine Operator: Satya Valdez MD #### AHCGEN #### [facility] [address] [place], [place] [phone] Box Folding Machine Operator: Remi Harman MD Cholesterol.total /Cholesterol in HDL [Mass ratio] 3.5 {ratio} Normal <5 [facility] Comment on above: Performed By: #### C DP, CP, LIPR, TSHX, TREP, HIVCMB, HSVPR #### [address] [address] Box Folding Machine Operator: Satya Valdez MD #### AHCGEN #### [facility] [address] [place], [place] [phone] Box Folding Machine Operator: Remi Harman MD Triglyceride,Fast ing 287 mg/dL High <150 [facility] Comment on above: Result Comment: Triglyceride Guidelines: <150 Desirable 150-199 Borderline 200-499 High >499 Very high Based on AHA Guidelines for fasting triglyceride, May 2012. Performed By: #### C DP, CP, LIPR, TSHX, TREP, HIVCMB, HSVPR #### [address] [address] Box Folding Machine Operator: Satya Valdez MD #### AHCGEN #### [facility] [address] [place], [place] [phone] Box Folding Machine Operator: Remi Harman MD Liver Fibrosis Panelon 05-18 Platelet Cnt,Fibro 293 [facility] Comment on above: Performed By: #### C DP, CP, LIPR, TSHX, TREP, HIVCMB, HSVPR #### [address] [address] Box Folding Machine Operator: Satya Valdez MD #### AHCGEN #### [facility] [address] [place], [place] [id number] Box Folding Machine Operator: Remi Harman MD Note: Responsible Ob server programmer: FELIPA CORRAL ([id number]) PSA, Screeningon 05-18-2020 Prostatic Spec. Ag 0.49 ug/L (<4.1) [facility] Comment on above: Result Comment: The Martina ECLIA assay is used. Results obtained with different assay methods cannot be used interchangeably. Performed By: #### C DP, CP, LIPR, TSHX, TREP, HIVCMB, HSVPR #### [address] [address] Box Folding Machine Operator: Satya Valdez MD #### AHCGEN #### [facility] [address] [place], [place] [id number] Box Folding Machine Operator: Remi Harman MD Note: The Martina ECL IA assay is used. Results obtained with different assay methodscannot be used interchangeably.Responsible Observer: [employer]OFILE ([id number]) TSH w/reflex to FT4on 2019 TSH Qn 0.93 m[IU]/L Normal 0.30-5.00 [facility] Comment on above: Performed By: #### C DP, CP, LIPR, TSHX, TREP, HIVCMB, HSVPR #### [facility] [address] [employer] [address] [place] [address] [phone] Box Folding Machine Operator: Satya Valdez MD #### AHIshmaelGEN #### [facility] [address] [place] [address] Box Folding Machine Operator: Remi Harman MD CBCon 05-17-2020 WBC (Bld) [#/Vol] 0.0 10*3/uL 0.0 per 10 0 WBC [place], [place] [facility] 05-17-2020 Cholesterol [Mass/Vol] 191 mg/dL (<200) [facility] Work Phone: Comment on above: Note: Cholesterol Gu idelines:<200 [id number] Borderline>240 UndesirableResponsible Observer: EMETERIO PENALOZA ([id number]) Comp Metabolic Profon 2019 BUN/CRE Ratio NOT REPORTED (05-08) [facility] Comment on above: Performed By: #### C DP, CP, LIPR, TSHX, TREP, HIVCMB, HSVPR #### [facility] [address] [employer] [address] [place] [address] [phone] Box Folding Machine Operator: Satya Valdez MD #### AHIshmaelGEN #### [facility] [address] [place] [address] Box Folding Machine Operator: Remi Harman MD Staging: NOT REPORTED [facility] Comment on above: Performed By: #### C DP, CP, LIPR, TSHX, TREP, HIVCMB, HSVPR #### [facility] [address] [employer] [address] [place] [address] Box Folding Machine Operator: Satya Valdez MD #### AHCGEN #### [facility] [address] [place] [address] Box Folding Machine Operator: Remi Harman MD HCV Genotype, PCRon 05-17-20 20 HCV Viral Load NOT REPORTED [facility] Comment on above: Performed By: #### C DP, CP, LIPR, TSHX, TREP, HIVCMB, HSVPR #### [facility] [address] [place] [address] Box Folding Machine Operator: Satya Valdez MD #### AHCGEN #### [facility] [address] [place] [address] Box Folding Machine Operator: Remi Harman MD Hematologyon 05-17-2020 Hematocrit (Bld) [Volume fraction] 44.0 % (40.7-50.3) [place], [place] Comment on above: Note: Responsible Ob server programmer: [employer] ([id number]) Hemoglobin (Bld) [Mass/Vol] 14.6 g/dL (13.0-17.0) [place], [place] Comment on above: Note: Responsible Ob server programmer: [employer] ([id number]) MCH (RBC) [Entitic mass] 31.1 pg (25.2-33.5) [place], [place] Comment on above: Note: Responsible Ob server programmer: [employer] ([id number]) MCV (RBC) [Entitic vol] 93.6 fL (82.6-102.9) [place], [place] Comment on above: Note: Responsible Ob server programmer: XNV AUTOFILE ([id number]) Platelets (Bld) [#/Vol] 293 10*3/uL (138-453) [place] Comment on above: Note: Responsible Ob server programmer: XNV AUTOFILE ([id number]) RBC (Bld) [#/Vol] 4.70 10*6/uL (4.21-5.77) [place], [place] Comment on above: Note: Responsible Ob server programmer: XNV AUTOFILE ([id number]) WBC (Bld) [#/Vol] 6.1 10*3/uL (3.5-11.3) [place] Comment on above: Note: Responsible Ob server programmer: XNV AUTOFILE ([id number]) INR Coag (PPP) [Relative time] 1.0 {INR} [place] Comment on above: Therapeutic Range: Moderate Anticoagulant Intensity: INR = 2.0-3.0 High Anticoagulant Intensity: INR = 2.5-3.5 Note: Therapeutic Ra nge:Moderate Anticoagulant Intensity:INR = 2.0-3.0High Anticoagulant Intensity:INR = 2.5-3.5Responsible Observer: AUTOFILE BCS (2005) PT Coag (PPP) [Time] 10.2 s (9.0-12.0) [place] Comment on above: Note: Responsible Ob server programmer: AUTOFILE BCS (2005) WBC (Bld) [#/Vol] 0.0 per_100_WBC (0.0) [facility] Work Phone: Comment on above: Note: Responsible Ob server programmer: XNV AUTOFILE ([id number]) Hepatitis A Antibody, IgMon 05-17-2020 HAV IgM IA Qn (S) NONREACTIVE NONREACTIVE [place] Hepatitis B Core Antibody, T otalon 05-17-2020 Hep B Core Total Ab NONREACTIVE NONREACTIVE [place] Hepatitis B Surface Antibody on 05-17-2020 HBV surface Ab (S) [Titer] <3.50 <10 mIU/mL [place] Comment on above: REFERENCE RANGE: <10.0 NON-REACTIVE/NOT IMMUNE >=10.0 REACTIVE/IMMUNE Hepatitis B Surface Antigeno n 05-17-2020 Hepatitis B Surface Ag NONREACTIVE NONREACTIVE [place] Lipid Prof, Fastingon 2019 Cholesterol in VLDL [Mass/Vol] NOT REPORTED Normal 09-17 [facility] Comment on above: Performed By: #### C DP, CP, LIPR, TSHX, TREP, HIVCMB, HSVPR #### [facility] [address] [employer] [address] [place] [address] Box Folding Machine Operator: Satya Valdez MD #### AHGEN #### [facility] [address] [place] [address] Box Folding Machine Operator: Remi Harman MD Metabolic Panelon 05-17-2020 Albumin [Mass/Vol] 4.4 g/dL (3.5-5.2) [facility] Work Phone: Comment on above: Note: Responsible Ob server programmer: EMETERIO PENALOZA (381) ALT [Catalytic activity/Vol] 50 U/L High (5-41) [facility] Work Phone: Comment on above: Note: Responsible Ob server programmer: EMETERIO PENALOZA (666) Anion gap [Moles/Vol] 15 mmol/L (9-17) [facility] Work Phone: Comment on above: Note: Responsible Ob server programmer: EMETERIO PENALOZA (711) AST [Catalytic activity/Vol] 37 U/L (<40) [facility] Work Phone: Comment on above: Note: Responsible Ob server programmer: EMETERIO PENALOZA (325) Bilirubin [Mass/Vol] 0.35 mg/dL (0.3-1.2) [facility] Work Phone: Comment on above: Note: Responsible Ob server programmer: EMETERIO PENALOZA (000) Calcium [Mass/Vol] 9.6 mg/dL (8.6-10.4) [facility] Work Phone: Comment on above: Note: Responsible Ob server programmer: EMETERIO PENALOZA (983) Chloride [Moles/Vol] 101 mmol/L (98-107) [facility] Work Phone: Comment on above: Note: Responsible Ob server programmer: EMETERIO PENALOZA (490) CO2 [Moles/Vol] 24 mmol/L (20-31) [facility] Work Phone: Comment on above: Note: Responsible Ob server programmer: EMETERIO PENALOZA (246) Creatinine [Mass/Vol] 1.26 mg/dL High (0.70-1.20) [facility] Work Phone: Comment on above: Note: Responsible Ob server programmer: EMETERIO PENALOZA ([id number]) Glucose [Mass/Vol] 85 mg/dL (70-99) [facility] Work Phone: Comment on above: Note: Responsible Ob server programmer: EMETERIO PENALOZA ([id number]) Potassium [Moles/Vol] 4.2 mmol/L (3.7-5.3) [facility] Work Phone: Comment on above: Note: Responsible Ob server programmer: EMETERIO PENALOZA (6170) Protein [Mass/Vol] 6.7 g/dL (6.4-8.3) [facility] Work Phone: Comment on above: Note: Responsible Ob server programmer: EMETERIO PENALOZA (4135) Sodium [Moles/Vol] 140 mmol/L (135-144) [facility] Work Phone: Comment on above: Note: Responsible Ob server programmer: EMETERIO PENALOZA (4991) Urea nitrogen [Mass/Vol] 16 mg/dL (6-20) [facility] Work Phone: Comment on above: Note: Responsible Ob server programmer: EMETERIO PENALOZA ([id number]) Urea nitrogen [Mass/Vol] 17 mg/dL (7-20) [facility] Work Phone: Comment on above: Note: Responsible Ob server programmer: LAB [facility] ([id number]) Otheron 05-17-2020 HIV Ag/Ab NONREACTIVE (NR) [place] Comment on above: No laboratory eviden ce of HIV infection. If acute HIV infection is suspected, consider testing for HIV-1 RNA. Note: No laboratory evidence of HIV infection. If acute HIV infection is suspected,consider testing for HIV-1 RNA.Responsible Observer: BURT SCHMIDT (4227) Erythrocyte distribution width (RBC) [Ratio] 12.8 % (11.8-14.4) [place] Comment on above: Note: Responsible Ob server programmer: XNV AUTOFILE (3018) MCHC (RBC) [Mass/Vol] 33.2 g/dL (28.4-34.8) [place] Comment on above: Note: Responsible Ob server programmer: XNV AUTOFILE ([id number]) Platelet mean volume (Bld) [Entitic vol] 10.3 fL (8.1-13.5) [place] Comment on above: Note: Responsible Ob server programmer: XNV AUTOFILE ([id number]) (cont.) See Note [facility] Work Phone: Comment on above: Note: Average GFR fo r 30-39 years old:107 mL/min/1.73sq mChronic Kidney Disease:<60 mL/min/1.73sq mKidney failure:<15 mL/min/1.73sq meGFR calculated using average adult body mass. Additional eGFR calculatoravailable at:http://www.Survela/multiple_crcl_2012.htmResponsible Observer: EMETERIO PENALOZA ([id number]) A2 Macroglob, Fibro 240 mg/dL (131-293) [facility] Work Phone: Comment on above: Note: Responsible Ob server programmer: [facility] (0603) Albumin/Glob Ratio 1.9 (1.0-2.5) [facility] Work Phone: Comment on above: Note: Responsible Ob server programmer: EMETERIO PENALOZA (468) Alkaline Phos 63 U/L (40-129) [facility] Work Phone: Comment on above: Note: Responsible Ob server programmer: EMETERIO PENALOZA (776) ALT, Fibro 58 U/L High (5-50) [facility] Work Phone: Comment on above: Note: Responsible Ob server programmer: [facility] (0603) Amphetamine <20 ng/mL [facility] Work Phone: Comment on above: Note: (NOTE)INTERPRE TIVE INFORMATION: Amphetamines, Serum orPlasma, QuantitativeMethodology: Quantitative Liquid Chromatography-Tandem MassSpectrometryPositive cutoff: 20 ng/mLFor medical purposes only; not valid for forensic use.The absence of expected drug(s) and/or drug metabolite(s) mayindicate non-compliance, inappropriate timing of specimencollection relative to drug administration, poor drug absorption,or limitations of testing. The concentration value must begreater than or equal to the cutoff to be reported as positive.Interpretive questions should be directed to the laboratory.Test developed and characteristics determined by [facility]. See Compliance Statement B: [employer].com/CSResponsible Observer: [facility] (0603) Amphetamines, S/P Positive (Cutoff 20) [facility] Work Phone: Comment on above: Note: (NOTE)If the s creen is positive, then confirmation by mass spectrometrywill be added. Additional charges will apply.Unconfirmed positive may be useful for medical purposes, but doesnot meet forensic standards.Responsible Observer: [facility] (0603) AST, Fibro 38 U/L (9-50) [facility] Work Phone: Comment on above: Note: Responsible Ob server programmer: [facility] (0603) Barbiturates, S/P Negative (Cutoff 50) [facility] Work Phone: Comment on above: Note: Responsible Ob server programmer: [facility] (0603) Benzodiazepines, S/P Negative (Cutoff 50) [facility] Work Phone: Comment on above: Note: Responsible Ob server programmer: [facility] (0603) Buprenorphine, S/P Negative (Cutoff 1) [facility] Work Phone: Comment on above: Note: Responsible Ob server programmer: [facility] (0603) Cannabinoids, S/P 62 ng/mL [facility] Work Phone: Comment on above: Note: (NOTE)INTERPRE TIVE INFORMATION: THC Metabolite, Serum orPlasma, QuantitativeMethodology: Quantitative Liquid Chromatography-Tandem MassSpectrometry.Positive cutoff: 5 ng/mLFor medical purposes only; not valid for forensic use.The drug analyte detected in this assay, 9-carboxy THC, is ametabolite of vfapq-1-lezhjaaxwppwwxrflrmz (THC). Detection of9-carboxy THC suggests use of, or exposure to, a productcontaining THC. This test cannot distinguish between prescribedor non-prescribed forms of THC, nor can it distinguish betweenactive or passive use. The plasma half-life for 9-carboxy THCmetabolite is estimated to range from 4-12 hours.Test developed and characteristics determined by [facility]. See Compliance Statement B: [employer]/CSPerformed By: [employer] [place] [id number] Director: Terese Muniz MDResponsible Observer: LAB RIAN (06) Cholesterol,HDL 55 mg/dL (>40) [facility] Work Phone: Comment on above: Note: HDL Guidelines :<40 Oxhvwvyfmlw89-20 Borderline>59 DesirableResponsible Observer: EMETERIO PENALOZA ([id number]) Cholesterol,LDL 79 mg/dL (0-130) [facility] Work Phone: Comment on above: Note: LDL Guidelines :<100 Hsoqjdonx513-496 Near to/above Xwfhjmyvs108-953 Borderline>159 UndesirableDirect (measured) LDL and calculated LDL are not interchangeable tests.Responsible Observer: EMETERIO PENALOZA (6563) Cholesterol,VLDL NOT REPORTED mg/dL (1-30) [facility] Work Phone: Cholesterol.total /Cholesterol in HDL [Mass ratio] 3.5 {ratio} (<5) [facility] Work Phone: Comment on above: Note: Responsible Ob server programmer: EMETERIO PENALOZA ([id number]) CirrhM Patient Score 0 [facility] Work Phone: Comment on above: Note: Responsible Ob server programmer: LAB RIAN (06) Cocaine, Serum/Plas Negative (Cutoff 20) [facility] Work Phone: Comment on above: Note: Responsible Ob server programmer: LAB RIAN (06) Comment See Note [facility] Work Phone: Comment on above: Note: (NOTE)INTERPRE TIVE INFORMATION: Drug Screen 9 Panel, Serum orPlasma - Immunoassay Screen withReflex to Mass SpectrometryConfirmation/Quantitation1. Methodology: Qualitative Immunoassay Screen2. Drugs/Drug classes reported as Positive are automaticallyreflexed to mass spectrometry confirmation/quantitation testing.An immunoassay unconfirmed positive screen result may be usefulfor medical purposes but does not meet forensic standards.3. The absence of expected drug(s) and/or drug metabolite(s) mayindicate non-compliance, inappropriate timing of specimencollection relative to drug administration, poor drug absorption,or limitations of testing. The concentration at which thescreening test can detect a drug or metabolite varies within adrug class. Specimens for which drugs or drug classes are detectedby the screen are automatically reflexed to a second, morespecific technology (mass spectrometry). The concentration valuemust be greater than or equal to the cutoff to be reported aspositive. Interpretive questions should be directed to thelaboratory.4. For medical purposes only; not valid for forensic use.Test developed and characteristics determined by [facility]. See Compliance Statement B: [employer]/CSPerformed By: [employer] [place] [id number] Director: Terese Muniz MDResponsible Observer: VALENTIN MODI (06) EER Fibro Rpt See Note [facility] Work Phone: Comment on above: Note: (NOTE)Access A RUP Enhanced Report using either link below:-Direct access: [email or web address] Username, Password: [email or web address] RouteUsername: [email or web address]: [email or web address] Observer: VALENTIN MODI (06) Fibro Interpretation See Report [facility] Work Phone: Comment on above: Note: (NOTE)[17][16] INTERPRETIVE INFORMATION: Fibrometer InterpretationCalculations for the final report are based on accurate data forage, gender, and platelet count. If any of this information needsto be corrected, please contact [employer] to request arecalculation. Client Services may be contacted at .The Echosens FibroMeter profile serves as a surrogate marker ofliver fibrosis, cirrhosis, and necro-inflammatory activity. Aproprietary algorithm calculates and compares results from 7 bloodmarkers along with age and gender to provide a patient score (from0 to 1) and a correlated fibrosis stage (Metavir F0-F4) andactivity grade (Metavir A0-A3). The fibrosis/cirrhosis score isfurther evaluated by a rules-based system to detect anomalousprofile results which may modify the fibrosis/cirrhosis score asneeded.Results should be interpreted in conjunction with the patient'sclinical history; particularly when the rules-based system hasmodified the scores.Legend:-Metavir is a histological scoring system for determining theextent of liver fibrosis and inflammation.STAGE OF FIBROSIS (F scale)F0 = no fibrosisF1 = portal fibrosis without septaF2 = portal fibrosis with few septaF3 = numerous septa without cirrhosisF4 = cirrhosisGRADE OF NECRO-INFLAMMATORY ACTIVITY (A scale)A0 = no activityA1 = mild activityA2 = moderate activityA3 = severe activity-Platelet count result provided by client.-The Prothrombin Index test expresses the Prothrombin Time (PT) asa percentage of normal, and is used to standardize PT resultsacross different instrument/reagent combinations. Test developedand characteristics determined by [employer]. SeeCompliance Statement B: [employer]/CSPerformed By: [employer] [place] [address] [id number] Director: DAMON Leeesponsible Observer: VALENTIN MODI ([id number]) Fibro Metavir Class SEE NOTE [facility] Work Phone: Comment on above: Note: (NOTE)Results for Fibrosis Metavir Classification: F1[F1-F2]INTERPRETIVE INFORMATION: Fibrosis Metavir ClassificationFibroMeter (fibrosis score) commentsF0/F1 Equal probability between F0 and F1F1[F1-F2] Predominance of F1, but F2 is possibleF2[F1-F2] Predominance of F2, but F1 is possibleF2[F1-F3] Predominance of F2, but F1 and F3 are possibleF2/F3 Equal probability between F2 and F3F3[F2-F4] Predominance of F3, but F2 and F4 are possibleF3[F3-F4] Predominance of F3, but F4 is possibleF4[F3-F4] Predominance of F4, but F3 is possibleResponsible Observer: VALENTIN MODI ([id number]) FibroM Patient Score 0.19 [facility] Work Phone: Comment on above: Note: Responsible Ob server programmer: LAB ALEJANDROCHANTEL (0603) GFR, Amer >60 mL/min (>60) [facility] Work Phone: Comment on above: Note: Responsible Ob server programmer: EMETERIO PENALOZA ([id number]) GFR,non Amer >60 mL/min (>60) [facility] Work Phone: Comment on above: Note: Responsible Ob server programmer: EMETERIO PENALOZA (6953) GGT, Fibro 26 U/L (7-51) [facility] Work Phone: Comment on above: Note: Responsible Ob server programmer: LAB ALEJANDROCHANTEL (0603) HCV Genotype, PCR 2b [facility] Work Phone: Comment on above: Note: (NOTE)INTERPRE TIVE INFORMATION: Hepatitis C GenotypingHepatitis C Viral RNA is tested using reverse transcriptionpolymerase chain reaction (RT-PCR) to amplify a specific portionof the 5' untranslated region (5' UTR) of the viral genome. Theamplified nucleic acid is sequenced bi-directionally usingdye-terminator chemistry (Intrallect). Sequencing data is compared to adatabase of characterized sequences.Isolates of hepatitis C virus are grouped into six major genotypes(1-6). These genotypes are subtyped according to sequencecharacteristics. Due to high conservation of the 5' un-translatedregion of the HCV genome, this test has limitations indifferentiating subtype 1a from 1b. Therefore, these subtypes willbe reported as 1a or 1b. In rare instances, Type 6 virus may bemisclassified as Type 1.Test developed and characteristics determined by [facility]. See Compliance Statement B: [employer]/CSPerformed By: [employer] [place] [address] [id number] Director: Terese Muniz MDResponsible Observer: VALENTIN MODI (06) HCV RNA,Quant,PCR See Note [facility] Work Phone: Comment on above: Note: Specimen Descr iption .PLASMASpecial Requests NOT REPORTEDDirect Exam HCV RNA DETECTED [id number] IU/ML (6.94 LOG IU/ML) This test is a sensitive methodfor quantitating HCV RNA viral loads in plasma. It utilizes RT-PCR in the FDAapproved Martina Ampliprep/Taqman 48 System. This test is intended for detectingand quantifying HCV RNA viral loads in the range of 15 IU/mL to 100,000,000IU/mL (1.18 log IU/mL to 8.00 log IU/mL). Patients should have confirmed HCVinfection prior to RNA quantification. This test has been developed to monitordisease progression and efficacy of anti-HCV drug therapy. This test has beenoptimized for HCV genotypes 1-6.Results reported to the appropriate Health DepartmentReport Status FINAL 05/19/2020Responsible Observer: OSITO ARNOLD ([id number]) Hep B Surf Ab <3.50 mIU/mL (<10) [facility] Work Phone: Comment on above: Note: REFERENCE RANG E:<10.0 NON-REACTIVE/NOT IMMUNE>=10.0 REACTIVE/IMMUNEResponsible Observer: CEEV AUTOFILE ([id number]) InflaM Metavir Class A1/A2 [facility] Work Phone: Comment on above: Note: (NOTE)INTERPRE TIVE INFORMATION: InflaMeter Metavir ClassificationInflaMeter (activity score) commentsA0/A1 Equal probability between A0 and A1A1/A2 Equal probability between A1 and A2A2/A3 Equal probability between A2 and A7Hbtgzwxrtkf Observer: LAB RIAN (06) InflaM Patient Score 0.28 [facility] Work Phone: Comment on above: Note: Responsible Ob server programmer: LAB RIAN (06) M.dioxyamphetamin e <20 ng/mL [facility] Work Phone: Comment on above: Note: Responsible Ob server programmer: LAB RIAN (0603) M.dioxyethylamphe t <20 ng/mL [facility] Work Phone: Comment on above: Note: (NOTE)Performe d By: [employer] [place] [address] [id number] Director: Terese Muniz MDResponsible Observer: LAB ALEJANDROUP (602) M.dioxymethylamph et <20 ng/mL [facility] Work Phone: Comment on above: Note: Responsible Ob server programmer: [facility] (06) Methadone, S/P Negative (Cutoff 25) [facility] Work Phone: Comment on above: Note: Responsible Ob server programmer: LAB [facility] (602) Methamphetamine 462 ng/mL [facility] Work Phone: Comment on above: Note: (NOTE)Consiste nt with use of a drug containing methamphetamine.Methamphetamine is metabolized to amphetamine. Amphetamine andmethamphetamine exist in d- and l-isomeric forms. These forms arenot distinguished by this test. Isomeric separation is availableseparately for an additional charge.Responsible Observer: LAB ALEJANDROUP (602) Methamphetamine,S /P Positive (Cutoff 20) [facility] Work Phone: Comment on above: Note: (NOTE)If the s creen is positive, then confirmation by mass spectrometrywill be added. Additional charges will apply.Unconfirmed positive may be useful for medical purposes, but doesnot meet forensic standards.Responsible Observer: LAB ALEJANDROUP (602) Opiates, Serum/Plas Negative (Cutoff 20) [facility] Work Phone: Comment on above: Note: Responsible Ob server programmer: LAB ALEJANDROUP (602) Oxycodone, S/P Negative (Cutoff 20) [facility] Work Phone: Comment on above: Note: Responsible Ob server programmer: LAB ALEJANDROUP (602) Performing Lab: see note [facility] Work Phone: Comment on above: Note: OLIVA Lyons [address] [facility] [id number] Note: [facility] [address] [facility] [address] Note: [facility] [address] [facility] [address] [facility] [address] [facility] [address] Phencyclidine, S/P Negative (Cutoff 10) [facility] Work Phone: Comment on above: Note: Responsible Ob server programmer: LAB ALEJANDROUP (0603) Prothrombin Index 103 % (90-120) [facility] Work Phone: Comment on above: Note: Responsible Ob server programmer: LAB ALEJANDROUP (0603) Reported Physicians See Note [facility] Work Phone: Comment on above: Note: Reported Physi cians:Ordering: Escobar MckeonAttending: Neli MckeonieReferring: Escobar Mckeon THC, Serum/Plasma Positive (Cutoff 20) [facility] Work Phone: Comment on above: Note: (NOTE)If the s creen is positive, then confirmation by mass spectrometrywill be added. Additional charges will apply.Unconfirmed positive may be useful for medical purposes, but doesnot meet forensic standards.Responsible Observer: LAB R[facility] (0603) Thyroid Stim. Horm. 0.93 mIU/L (0.30-5.00) [facility] Work Phone: Comment on above: Note: Responsible Ob server programmer: EMETERIO PENALOZA (7781) Triglyceride,Fast ing 287 mg/dL High (<150) [facility] Work Phone: Comment on above: Note: Triglyceride G uidelines:<150 Tqorjjpvz005-967 Zoxwxunwoe010-261 High>499 Very highBased on AHA Guidelines for fasting triglyceride, May 2012.Responsible Observer: EMETERIO PENALOZA (9484) PTon 05-17-2020 INR Coag (PPP) [Relative time] 1.0 {INR} Normal [facility] Comment on above: Result Comment: Therapeutic Range: Moderate Anticoagulant Intensity: INR = 2.0-3.0 High Anticoagulant Intensity: INR = 2.5-3.5 Performed By: #### C DP, CP, LIPR, TSHX, TREP, HIVCMB, HSVPR #### [address] [address] Box Folding Machine Operator: Satya Valdez MD #### AHIshmaelGEN #### [facility] [address] [place], [place] [id number] Box Folding Machine Operator: Remi Harman MD PT Coag (PPP) [Time] 10.2 s Normal 9.0-12.0 [facility] Comment on above: Performed By: #### C DP, CP, LIPR, TSHX, TREP, HIVCMB, HSVPR #### [address] [id number] Box Folding Machine Operator: Satya Valdez MD #### AHIshmaelGEN #### [facility] [address] [place] [address] Box Folding Machine Operator: Remi Harman MD CT ABDOMEN PELVIS W IV CONTR AST Additional Contrast? Oralon 01-22-2020 1. No acute intra-ab dominal abnormality. 2. No acute intrapelvic abnormality. [place], [place] EXAMINATION: CT OF T ABDOMEN AND PELVIS WITH CONTRAST 01/22/2020 4:52 pm TECHNIQUE: CT of the abdomen and pelvis was performed with the administration of intravenous contrast. Multiplanar reformatted images are provided for review. Dose modulation, iterative reconstruction, and/or weight based adjustment of the mA/kV was utilized to reduce the radiation dose to as low as reasonably achievable. COMPARISON: None. HISTORY: ORDERING SYSTEM PROVIDED HISTORY: Diarrhea, unspecified type TECHNOLOGIST PROVIDED HISTORY: FINDINGS: Lower Chest: The lung bases are clear. Organs: The liver, spleen, gallbladder, pancreas and adrenal glands appear unremarkable. There is symmetric enhancement of the kidneys. No hydronephrosis is seen. GI/Bowel: The bowel loops are not dilated. No bowel wall thickening is seen. The appendix is not dilated. Pelvis: No pelvic masses or fluid collections are seen. Peritoneum/Retroperitoneum: The abdominal aorta is not aneurysmal. No retroperitoneal or mesenteric lymphadenopathy is seen. Bones/Soft Tissues: No acute bony abnormalities are noted. [place], [place], M[facility]pn Incoming R adiant Results From [facility] - 01/22/2020 5:08 PM EDT EXAMINATION: CT OF THE ABDOMEN AND PELVIS WITH CONTRAST 01/22/2020 4:52 pm TECHNIQUE: CT of the abdomen and pelvis was performed with the administration of intravenous contrast. Multiplanar reformatted images are provided for review. Dose modulation, iterative reconstruction, and/or weight based adjustment of the mA/kV was utilized to reduce the radiation dose to as low as reasonably achievable. COMPARISON: None. HISTORY: ORDERING SYSTEM PROVIDED HISTORY: Diarrhea, unspecified type TECHNOLOGIST PROVIDED HISTORY: FINDINGS: Lower Chest: The lung bases are clear. Organs: The liver, spleen, gallbladder, pancreas and adrenal glands appear unremarkable. There is symmetric enhancement of the kidneys. No hydronephrosis is seen. GI/Bowel: The bowel loops are not dilated. No bowel wall thickening is seen. The appendix is not dilated. Pelvis: No pelvic masses or fluid collections are seen. Peritoneum/Retroperitoneum: The abdominal aorta is not aneurysmal. No retroperitoneal or mesenteric lymphadenopathy is seen. Bones/Soft Tissues: No acute bony abnormalities are noted. IMPRESSION: 1. No acute intra-abdominal abnormality. 2. No acute intrapelvic abnormality. [place], [place] HCV Genotype, PCRon 06-01-20 19 HCV Genotype, PCR 2b Normal [place] Comment on above: Result Comment: (NOT E) INTERPRETIVE INFORMATION: Hepatitis C Genotyping Hepatitis C Viral RNA is tested using reverse occupational health physiotherapist polymerase chain reaction (RT-PCR) to amplify a specific portion of the 5' untranslated region (5' UTR) of the viral genome. The amplified nucleic acid is sequenced bi-directionally using dye-terminator chemistry (Intrallect). Sequencing data is compared to a database of characterized sequences. Isolates of hepatitis C virus are grouped into six major genotypes (1-6). These genotypes are subtyped according to sequence characteristics. Due to high conservation of the 5' un-translated region of the HCV genome, this test has limitations in differentiating subtype 1a from 1b. Therefore, these subtypes will be reported as 1a or 1b. In rare instances, Type 6 virus may be misclassified as Type 1. Test developed and characteristics determined by [employer]. See Compliance Statement B: GR[employer]quisition.[facility]/ Performed by [employer], [address] [place] [address] [id number] [email or web address], Remi Harman MD, Lab. Director Performed By: #### C DP, CP, LIPR, TSHX, TREP, HIVCMB, HSVPR #### [address] [id number] Box Folding Machine Operator: Satya Valdez MD #### AHIshmaelGEN #### [address] [id number] Box Folding Machine Operator: Remi Harman MD HCV RNA,Quant,PCRon 05-29-20 19 HCV RNA,Quant,PCR Specimen Description .PLASMA Special Requests NOT REPORTED Direct Exam HCV RNA DETECTED [id number] IU/ML (6.49 LOG IU/ML) This test is a sensitive method for quantitating HCV RNA viral loads in plasma. It utilizes RT-PCR in the FDA approved Martina Ampliprep/Taqman 48 System. This test is intended for detecting and quantifying HCV RNA viral loads in the range of 15 IU/mL to 100,000,000 IU/mL (1.18 log IU/mL to 8.00 log IU/mL). Patients should have confirmed HCV infection prior to RNA quantification. This test has been developed to monitor disease progression and efficacy of anti-HCV drug therapy. This test has been optimized for HCV genotypes 1-6. Results reported to the appropriate Health Department Report Status FINAL 05/29/2019 Normal [facility] Comment on above: Performed By: #### C DP, CP, LIPR, TSHX, TREP, HIVCMB, HSVPR #### [address] [id number] [employer] F[employer] Machine Operator: Satya Valdez MD #### AHIshmaelGEN #### [address] [id number] Box Folding Machine Operator: Remi Harman MD Herpes Profileon 05-28-2019 Herpes Type I, IgG 6.81 High <0.91 [facility] Comment on above: Result Comment: Reference Range: <=0.90 Negative 0.91-1.09 Equivocal >=1.10 Positive Performed By: #### C DP, CP, LIPR, TSHX, TREP, HIVCMB, HSVPR #### [address] [address] Box Folding Machine Operator: Satya Valdez MD #### AHCGEN #### [facility] [address] [place] [address] [phone] Box Folding Machine Operator: Remi Harman MD Herpes Type I/II,IgM 1.05 High <0.91 [facility] Comment on above: Result Comment: Reference Range: <=0.90 Negative 0.91-1.09 Equivocal >=1.10 Positive If positive, an IgM result indicates a current or recent infection. This test does not differentiate type I from type II. No current reference test is available for this. If IgG tests are ordered and are negative, consider retesting in 2 to 3 weeks. Performed By: #### C DP, CP, LIPR, TSHX, TREP, HIVCMB, HSVPR #### [place] [address] Box Folding Machine Operator: Satya Valdez MD #### AHCGEN #### [address] [phone] Box Folding Machine Operator: Remi Harman MD Herpes Type II, IgG 0.76 Normal <0.91 [facility] Comment on above: Result Comment: Reference Range: <=0.90 Negative 0.91-1.09 Equivocal >=1.10 Positive Performed By: #### C DP, CP, LIPR, TSHX, TREP, HIVCMB, HSVPR #### [place] [address] Box Folding Machine Operator: Satya Valdez MD #### AHCGEN #### [facility] [address] [place] [address] [phone] Box Folding Machine Operator: Remi Harman MD CBC with Diffon 10-09-2019 Abs. Basophil 0.05 k/uL Normal 0.00-0.20 [facility] Comment on above: Performed By: #### C DP, CP, LIPR, TSHX, TREP, HIVCMB, HSVPR #### [address] [address] Box Folding Machine Operator: Satya Valdez MD #### AHCGEN #### [facility] [address] [place] [address] Box Folding Machine Operator: Remi Harman MD Abs.Imm.Granulocy te <0.03 Normal 0.00-0.30 [facility] Comment on above: Performed By: #### C DP, CP, LIPR, TSHX, TREP, HIVCMB, HSVPR #### [place] [address] Box Folding Machine Operator: Satya Valdez MD #### AHCGEN #### [address] [address] Box Folding Machine Operator: Remi Harman MD Abs.Neutrophil (Seg) 3.47 k/uL Normal 1.50-8.10 [facility] Comment on above: Performed By: #### C DP, CP, LIPR, TSHX, TREP, HIVCMB, HSVPR #### [place] [address] Box Folding Machine Operator: Satya Valdez MD #### AHCGEN #### [facility] [address] [place] [address] Box Folding Machine Operator: Remi Harman MD Basophils/100 WBC (Bld) 1 % Normal 0-2 [facility] Comment on above: Performed By: #### C DP, CP, LIPR, TSHX, TREP, HIVCMB, HSVPR #### [place] [address] Box Folding Machine Operator: Satya Valdez MD #### AHCGEN #### [facility] [address] [place], [place] [id number] Box Folding Machine Operator: Remi Harman MD Eosinophils (Bld) [#/Vol] 0.25 10*3/uL Normal 0.00-0.44 [facility] Comment on above: Performed By: #### C DP, CP, LIPR, TSHX, TREP, HIVCMB, HSVPR #### [address] [address] Box Folding Machine Operator: Satya Valdez MD #### AHCGEN #### [address] [phone] Box Folding Machine Operator: Remi Harman MD Eosinophils/100 WBC (Bld) 4 % Normal 1-4 [facility] Comment on above: Performed By: #### C DP, CP, LIPR, TSHX, TREP, HIVCMB, HSVPR #### [address] [address] Box Folding Machine Operator: Satya Valdez MD #### AHCGEN #### [address] [address] Box Folding Machine Operator: Remi Harman MD Erythrocyte distribution width (RBC) [Ratio] 12.4 % Normal 11.8-14.4 [facility] Comment on above: Performed By: #### C DP, CP, LIPR, TSHX, TREP, HIVCMB, HSVPR #### [address] [address] Box Folding Machine Operator: Satya Valdez MD #### AHCGEN #### [facility] [address] [place], [place] [phone] Box Folding Machine Operator: Remi Harman MD Hematocrit (Bld) [Volume fraction] 48.5 % Normal 40.7-50.3 [facility] Comment on above: Performed By: #### C DP, CP, LIPR, TSHX, TREP, HIVCMB, HSVPR #### [address] [address] Box Folding Machine Operator: Satya Valdez MD #### AHCGEN #### [facility] [address] [place] [address] Box Folding Machine Operator: Remi Harman MD Hemoglobin (Bld) [Mass/Vol] 16.0 g/dL Normal 13.0-17.0 [facility] Comment on above: Performed By: #### C DP, CP, LIPR, TSHX, TREP, HIVCMB, HSVPR #### [address] [address] Box Folding Machine Operator: Satya Valdez MD #### AHCGEN #### [address] [address] Box Folding Machine Operator: Remi Harman MD Immature granulocytes (Bld) [#/Vol] 0 % Normal 0 [facility] Comment on above: Performed By: #### C DP, CP, LIPR, TSHX, TREP, HIVCMB, HSVPR #### [address] [address] Box Folding Machine Operator: Satya Valdez MD #### AHCGEN #### [facility] [address] [place] [address] [phone] Box Folding Machine Operator: Remi Harman MD Lymphocytes (Bld) [#/Vol] 2.73 10*3/uL Normal 1.10-3.70 [facility] Comment on above: Performed By: #### C DP, CP, LIPR, TSHX, TREP, HIVCMB, HSVPR #### [address] [address] Box Folding Machine Operator: Satya Valdez MD #### AHCGEN #### [facility] [address] [place] [address] Box Folding Machine Operator: Remi Harman MD Lymphocytes/100 WBC (Bld) 38 % Normal 24-43 [facility] Comment on above: Performed By: #### C DP, CP, LIPR, TSHX, TREP, HIVCMB, HSVPR #### [facility] [address] [place] [address] Box Folding Machine Operator: Satya Valdez MD #### AHCGEN #### [facility] [address] [place] [address] Box Folding Machine Operator: Remi Harman MD MCH (RBC) [Entitic mass] 30.5 pg Normal 25.2-33.5 [facility] Comment on above: Performed By: #### C DP, CP, LIPR, TSHX, TREP, HIVCMB, HSVPR #### [address] [phone] Box Folding Machine Operator: Satya Valdez MD #### AHCGEN #### [facility] [address] [place], [place] [phone] Box Folding Machine Operator: Remi Harman MD MCHC (RBC) [Mass/Vol] 33.0 g/dL Normal 28.4-34.8 [facility] Comment on above: Performed By: #### C DP, CP, LIPR, TSHX, TREP, HIVCMB, HSVPR #### [facility] [address] [place] [address] Box Folding Machine Operator: Satya Valdez MD #### AHCGEN #### [facility] [address] [place], [place] [phone] Box Folding Machine Operator: Remi Harman MD MCV (RBC) [Entitic vol] 92.4 fL Normal 82.6-102.9 [facility] Comment on above: Performed By: #### C DP, CP, LIPR, TSHX, TREP, HIVCMB, HSVPR #### [address] [address] Box Folding Machine Operator: Satya Valdez MD #### AHCGEN #### [facility] [address] [place], [place] [id number] Box Folding Machine Operator: Remi Harman MD Monocytes (Bld) [#/Vol] 0.61 10*3/uL Normal 0.10-1.20 [facility] Comment on above: Performed By: #### C DP, CP, LIPR, TSHX, TREP, HIVCMB, HSVPR #### [address] [address] Box Folding Machine Operator: Satya Valdez MD #### AHCGEN #### [facility] [address] [place], [place] [phone] Box Folding Machine Operator: Remi Harman MD Monocytes/100 WBC (Bld) 9 % Normal 3-12 [facility] Comment on above: Performed By: #### C DP, CP, LIPR, TSHX, TREP, HIVCMB, HSVPR #### [address] [address] Box Folding Machine Operator: Satya Valdez MD #### AHCGEN #### [facility] [address] [place], [place] [id number] Box Folding Machine Operator: Remi Harman MD Neutrophil (Seg) 48 % Normal 36-65 [facility] Comment on above: Performed By: #### C DP, CP, LIPR, TSHX, TREP, HIVCMB, HSVPR #### [address] [address] Box Folding Machine Operator: Satya Valdez MD #### AHCGEN #### [facility] [address] [place] [address] Box Folding Machine Operator: Remi Harman MD NRBC Automated 0.0 per 100 WBC Normal 0.0 [facility] Comment on above: Performed By: #### C DP, CP, LIPR, TSHX, TREP, HIVCMB, HSVPR #### [address] [address] Box Folding Machine Operator: Satya Valdez MD #### AHCGEN #### [facility] [address] [place] [address] Box Folding Machine Operator: Remi Harman MD Platelet mean volume (Bld) [Entitic vol] 9.9 fL Normal 8.1-13.5 [facility] Comment on above: Performed By: #### C DP, CP, LIPR, TSHX, TREP, HIVCMB, HSVPR #### [address] [address] Box Folding Machine Operator: Satya Valdez MD #### AHCGEN #### [facility] [address] [place] [address] Box Folding Machine Operator: Remi Harman MD Platelets (Bld) [#/Vol] 370 10*3/uL Normal 138-453 [facility] Comment on above: Performed By: #### C DP, CP, LIPR, TSHX, TREP, HIVCMB, HSVPR #### [address] [address] Box Folding Machine Operator: Satya Valdez MD #### AHCGEN #### [facility] [address] [place] [address] Box Folding Machine Operator: Remi Harman MD RBC (Bld) [#/Vol] 5.25 10*6/uL Normal 4.21-5.77 [facility] Comment on above: Performed By: #### C DP, CP, LIPR, TSHX, TREP, HIVCMB, HSVPR #### [address] [address] Box Folding Machine Operator: Satya Valdez MD #### AHCGEN #### [facility] [address] [place] [address] Box Folding Machine Operator: Remi Harman MD WBC (Bld) [#/Vol] 7.1 10*3/uL Normal 3.5-11.3 [facility] Comment on above: Performed By: #### C DP, CP, LIPR, TSHX, TREP, HIVCMB, HSVPR #### [address] [address] Box Folding Machine Operator: Satya Valdez MD #### AHCGEN #### [facility] [address] [place] [address] Box Folding Machine Operator: Remi Harman MD Auto Diff Performed NOT REPORTED Normal [facility] Comment on above: Performed By: #### C DP, CP, LIPR, TSHX, TREP, HIVCMB, HSVPR #### [address] [address] Box Folding Machine Operator: Satya Valdez MD #### AHCGEN #### [facility] [address] [place], [place] [id number] Box Folding Machine Operator: Remi Harman MD Platelets (Bld) [#/Vol] NOT REPORTED Normal [facility] Comment on above: Performed By: #### C DP, CP, LIPR, TSHX, TREP, HIVCMB, HSVPR #### [address] [address] Box Folding Machine Operator: Satya Valdez MD #### AHCGEN #### [facility] [address] [place] [address] Box Folding Machine Operator: Remi Harman MD RBC morphology finding Nom (Bld) NOT REPORTED Normal [facility] Comment on above: Performed By: #### C DP, CP, LIPR, TSHX, TREP, HIVCMB, HSVPR #### [address] [address] Box Folding Machine Operator: Satya Valdez MD #### AHCGEN #### [facility] [address] [place], [place] [id number] Box Folding Machine Operator: Remi Harman MD WBC Morphology NOT REPORTED Normal [facility] Comment on above: Performed By: #### C DP, CP, LIPR, TSHX, TREP, HIVCMB, HSVPR #### [address] [address] Box Folding Machine Operator: Satya Valdez MD #### AHCGEN #### [facility] [address] [place] [address] Box Folding Machine Operator: Remi Harman MD Chlamydia/GC DNA, Uron 05-27 Chlamydia Probe, Ur Negative Normal NEG [facility] Comment on above: Result Comment: CHLA MYDIA TRACHOMATIS DNA not detected by nucleic acid amplification. This test is intended for medical purposes only and is not valid for the evaluation of suspected sexual abuse or for other forensic purposes. In certain contexts, culture may be required to meet applicable laws and regulations for diagnosis of C. trachomatis and N. gonorrhoeae infections. Per 2014 CDC recommendations, this test does not include confirmation of positive results by an alternative nucleic acid target. Performed By: #### U CGP, TRCMOL #### [address] [address] Box Folding Machine Operator: Satya Valdez MD Gonorrhea Probe, Ur Negative Normal NEG [facility] Comment on above: Result Comment: NEIS SERIA GONORRHOEAE DNA not detected by nucleic acid amplification. This test is intended for medical purposes only and is not valid for the evaluation of suspected sexual abuse or for other forensic purposes. In certain contexts, culture may be required to meet applicable laws and regulations for diagnosis of C. trachomatis and N. gonorrhoeae infections. Per 2014 CDC recommendations, this test does not include confirmation of positive results by an alternative nucleic acid target. Performed By: #### U CGP, TRCMOL #### [facility] [address] [place] [address] [phone] Box Folding Machine Operator: Satya Valdez MD Comp Metabolic Profon 2018 (cont.) Normal [facility] Comment on above: Result Comment: Aver age GFR for 30-39 years old: 107 mL/min/1.73sq m Chronic Kidney Disease: <60 mL/min/1.73sq m Kidney failure: <15 mL/min/1.73sq m eGFR calculated using average adult body mass. Additional eGFR calculator available at: http://www.[employer]/multiple_crcl_2012.htm Performed By: #### C DP, CP, LIPR, TSHX, TREP, HIVCMB, HSVPR #### [address] [address] Box Folding Machine Operator: Satya Valdez MD #### CGEN #### [facility] [address] [place], [place] [id number] Box Folding Machine Operator: Remi Harman MD Albumin [Mass/Vol] 4.4 g/dL Normal 3.5-5.2 [facility] Comment on above: Performed By: #### C DP, CP, LIPR, TSHX, TREP, HIVCMB, HSVPR #### [address] [address] Box Folding Machine Operator: Satya Valdez MD #### AHCGEN #### [facility] [address] [place], [place] [id number] Box Folding Machine Operator: Remi Harman MD Albumin/Globulin [Mass ratio] 1.5 {ratio} Normal 1.0-2.5 [facility] Comment on above: Performed By: #### C DP, CP, LIPR, TSHX, TREP, HIVCMB, HSVPR #### [address] [address] Box Folding Machine Operator: Satya Valdez MD #### AHCGEN #### [facility] [address] [place], [place] [id number] Box Folding Machine Operator: Remi Harman MD Alkaline Phos 71 U/L Normal 40-129 [facility] Comment on above: Performed By: #### C DP, CP, LIPR, TSHX, TREP, HIVCMB, HSVPR #### [address] [address] Box Folding Machine Operator: Satya Valdez MD #### AHCGEN #### [facility] [address] [place] [address] Box Folding Machine Operator: Remi Harman MD ALT [Catalytic activity/Vol] 43 U/L High 5-41 [facility] Comment on above: Performed By: #### C DP, CP, LIPR, TSHX, TREP, HIVCMB, HSVPR #### [address] [address] Box Folding Machine Operator: Satya Valdez MD #### AHCGEN #### [address] [phone] Box Folding Machine Operator: Remi Harman MD Anion gap [Moles/Vol] 12 mmol/L Normal 9-17 [facility] Comment on above: Performed By: #### C DP, CP, LIPR, TSHX, TREP, HIVCMB, HSVPR #### [address] [address] Box Folding Machine Operator: Satya Valdez MD #### AHCGEN #### [facility] [address] [place] [address] [phone] Box Folding Machine Operator: Remi Harman MD AST [Catalytic activity/Vol] 37 U/L Normal <40 [facility] Comment on above: Performed By: #### C DP, CP, LIPR, TSHX, TREP, HIVCMB, HSVPR #### [address] [address] Box Folding Machine Operator: Satya Valdez MD #### AHCGEN #### [facility] [address] [place], [place] [id number] Box Folding Machine Operator: Remi Harman MD Bilirubin Ql (U) 0.38 mg/dL Normal 0.3-1.2 [facility] Comment on above: Performed By: #### C DP, CP, LIPR, TSHX, TREP, HIVCMB, HSVPR #### [address] [address] Box Folding Machine Operator: Satya Valdez MD #### AHCGEN #### [facility] [address] [place], [place] [phone] Box Folding Machine Operator: Remi Harman MD Calcium [Mass/Vol] 9.7 mg/dL Normal 8.6-10.4 [facility] Comment on above: Performed By: #### C DP, CP, LIPR, TSHX, TREP, HIVCMB, HSVPR #### [address] [address] Box Folding Machine Operator: Satya Valdez MD #### AHCGEN #### [facility] [address] [place], [place] [id number] Box Folding Machine Operator: Remi Harman MD Chloride [Moles/Vol] 100 mmol/L Normal 98-107 [facility] Comment on above: Performed By: #### C DP, CP, LIPR, TSHX, TREP, HIVCMB, HSVPR #### [address] [address] Box Folding Machine Operator: Satya Valdez MD #### AHCGEN #### [facility] [address] [place], [place] [id number] Box Folding Machine Operator: Remi Harman MD CO2 [Moles/Vol] 27 mmol/L Normal 20-31 [facility] Comment on above: Performed By: #### C DP, CP, LIPR, TSHX, TREP, HIVCMB, HSVPR #### [facility] [address] [place] [address] Box Folding Machine Operator: Satya Valdez MD #### AHCGEN #### [facility] [address] [place], [place] [id number] Box Folding Machine Operator: Remi Harman MD Creatinine [Mass/Vol] 1.28 mg/dL High 0.70-1.20 [facility] Comment on above: Performed By: #### C DP, CP, LIPR, TSHX, TREP, HIVCMB, HSVPR #### [facility] [address] [place] [address] Box Folding Machine Operator: Satya Valdez MD #### AHCGEN #### [facility] [address] [place], [place] [id number] Box Folding Machine Operator: Remi Harman MD GFR, Amer >60 Normal >60 [facility] Comment on above: Performed By: #### C DP, CP, LIPR, TSHX, TREP, HIVCMB, HSVPR #### [facility] [address] [place] [address] Box Folding Machine Operator: Satya Valdez MD #### AHCGEN #### [facility] [address] [place], [place] [id number] Box Folding Machine Operator: Remi Harman MD GFR,non Amer >60 Normal >60 [facility] Comment on above: Performed By: #### C DP, CP, LIPR, TSHX, TREP, HIVCMB, HSVPR #### [facility] [address] [place] [address] Box Folding Machine Operator: Satya Valdez MD #### AHCGEN #### [facility] [address] [place] [address] Box Folding Machine Operator: Remi Harman MD Glucose [Mass/Vol] 77 mg/dL Normal 70-99 [facility] Comment on above: Performed By: #### C DP, CP, LIPR, TSHX, TREP, HIVCMB, HSVPR #### [address] [address] Box Folding Machine Operator: Satya Valdez MD #### AHCGEN #### [facility] [address] [place], [place] [id number] Box Folding Machine Operator: Remi Harman MD Potassium [Moles/Vol] 3.9 mmol/L Normal 3.7-5.3 [facility] Comment on above: Performed By: #### C DP, CP, LIPR, TSHX, TREP, HIVCMB, HSVPR #### [address] [address] Box Folding Machine Operator: Satya Valdez MD #### AHCGEN #### [address] [phone] Box Folding Machine Operator: Remi Harman MD Protein [Mass/Vol] 7.3 g/dL Normal 6.4-8.3 [facility] Comment on above: Performed By: #### C DP, CP, LIPR, TSHX, TREP, HIVCMB, HSVPR #### [address] [address] Box Folding Machine Operator: Satya Valdez MD #### AHCGEN #### [facility] [address] [place], [place] [phone] Box Folding Machine Operator: Remi Harman MD Sodium [Moles/Vol] 139 mmol/L Normal 135-144 [facility] Comment on above: Performed By: #### C DP, CP, LIPR, TSHX, TREP, HIVCMB, HSVPR #### [address] [address] Box Folding Machine Operator: Satya Valdez MD #### AHCGEN #### [facility] [address] [place] [address] [phone] Box Folding Machine Operator: Remi Harman MD Urea nitrogen [Mass/Vol] 9 mg/dL Normal -20 [facility] Comment on above: Performed By: #### C DP, CP, LIPR, TSHX, TREP, HIVCMB, HSVPR #### [address] [id number] Box Folding Machine Operator: Satya Valdez MD #### AHCGEN #### [facility] [address] [place], [place] [id number] Box Folding Machine Operator: Remi Harman MD BUN/CRE Ratio NOT REPORTED Normal - [facility] Comment on above: Performed By: #### C DP, CP, LIPR, TSHX, TREP, HIVCMB, HSVPR #### [address] [phone] Box Folding Machine Operator: Satya Valdez MD #### AHCGEN #### [facility] [address] [place], [place] [id number] Box Folding Machine Operator: Remi Harman MD Staging: NOT REPORTED Normal [facility] Comment on above: Performed By: #### C DP, CP, LIPR, TSHX, TREP, HIVCMB, HSVPR #### [address] [phone] Box Folding Machine Operator: Satya Valdez MD #### AHCGEN #### [facility] [address] [place], [place] [id number] Box Folding Machine Operator: Remi Harman MD Comprehensive Metabolic Pane [facility] 05-27-2019 Albumin [Mass/Vol] 4.4 g/dL 3.5 - 5.2 g/dL [place] Albumin/Globulin [Mass ratio] 1.5 {ratio} [place] ALP [Catalytic activity/Vol] 71 U/L 40 - 129 U/L [place] ALT [Catalytic activity/Vol] 43 U/L High 5 - 41 U/L [place] Anion gap [Moles/Vol] 12 mmol/L 9 - 17 mmol/L [place] AST [Catalytic activity/Vol] 37 U/L <40 [place] Bilirubin Ql (U) 0.38 mg/dL 0.3 - 1.2 mg/dL [place] Bun/Cre Ratio NOT REPORTED [place], [place] Calcium [Mass/Vol] 9.7 mg/dL 8.6 - 10.4 mg/dL [place] Chloride [Moles/Vol] 100 mmol/L 98 - 107 mmol/L [place] CO2 [Moles/Vol] 27 mmol/L 20 - 31 mmol/L [place] Creatinine [Mass/Vol] 1.28 mg/dL High 0.7 - 1.2 mg/dL [place] GFR >60 >60 mL/min [place] GFR Non- >60 >60 mL/min [place] GFR/1.73 sq M predicted among non-blacks MDRD (S/P/Bld) [Vol rate/Area] NOT REPORTED [place] GFR/1.73 sq M predicted among non-blacks MDRD (S/P/Bld) [Vol rate/Area] [place] Comment on above: Average GFR for 30-3 9 years old: 107 mL/min/1.73sq m Chronic Kidney Disease: <60 mL/min/1.73sq m Kidney failure: <15 mL/min/1.73sq m eGFR calculated using average adult body mass. Additional eGFR calculator available at: http://www.[employer]/multiple_crcl_2012.htm Glucose [Mass/Vol] 77 mg/dL 70 - 99 mg/dL [place] Potassium [Moles/Vol] 3.9 mmol/L 3.7 - 5.3 mmol/L [place] Protein [Mass/Vol] 7.3 g/dL 6.4 - 8.3 g/dL [place] Sodium [Moles/Vol] 139 mmol/L 135 - 144 mmol/L [place] Urea nitrogen [Mass/Vol] 9 mg/dL 6 - 20 mg/dL [place] HCV Genotype, PCRon 05-27-20 19 HCV Viral Load NOT REPORTED Normal [facility] Comment on above: Performed By: #### C DP, CP, LIPR, TSHX, TREP, HIVCMB, HSVPR #### [facility] [place] [address] Box Folding Machine Operator: Satya Valdez MD #### AHCGEN #### [facility] [address] [place], [place] [id number] Box Folding Machine Operator: Remi Harman MD HIV Ag/Abon 05-27-2019 HIV Ag/Ab NONREACTIVE Normal NR [facility] Comment on above: Result Comment: No l aboratory evidence of HIV infection. If acute HIV infection is suspected, consider testing for HIV-1 RNA. Performed By: #### C DP, CP, LIPR, TSHX, TREP, HIVCMB, HSVPR #### [facility] [place] [address] Box Folding Machine Operator: Satya Valdez MD #### AHCGEN #### [facility] [address] [place] [address] Box Folding Machine Operator: Remi Harman MD Lipid Panelon 05-27-2019 Cholesterol [Mass/Vol] 233 mg/dL High <200 [place], [place] Comment on above: Cholesterol Guidelines: <200 Desirable 200-240 Borderline >240 Undesirable Cholesterol in HDL [Mass/Vol] 60 mg/dL >40 [place] Comment on above: HDL Guidelines: <40 Undesirable 40-59 Borderline >59 Desirable Cholesterol in LDL [Mass/Vol] 145 mg/dL High 0 - 130 mg/dL [place] Comment on above: LDL Guidelines: <100 Desirable 100-129 Near to/above Desirable 130-159 Borderline >159 Undesirable Direct (measured) LDL and calculated LDL are not interchangeable tests. Cholesterol in VLDL [Mass/Vol] NOT REPORTED 1 - 30 mg/dL [place] Cholesterol.total /Cholesterol in HDL [Mass ratio] 3.9 {ratio} <5 [place] Triglyceride [Mass/Vol] 138 mg/dL <150 [place] Comment on above: Triglyceride Guidelines: <150 Desirable 150-199 Borderline 200-499 High >499 Very high Based on AHA Guidelines for fasting triglyceride, May 2012. Lipid Profileon 05-27-2019 Cholesterol [Mass/Vol] 233 mg/dL High <200 [facility] Comment on above: Result Comment: Cholesterol Guidelines: <200 Desirable 200-240 Borderline >240 Undesirable Performed By: #### C DP, CP, LIPR, TSHX, TREP, HIVCMB, HSVPR #### [facility] [address] [employer] [address] [place] [address] [phone] Box Folding Machine Operator: Satya Valdez MD #### AHCGEN #### [employer] [address], [place] [id number] Box Folding Machine Operator: Remi Harman MD Cholesterol in HDL [Mass/Vol] 60 mg/dL Normal >40 [facility] Comment on above: Result Comment: HDL Guidelines: <40 Undesirable 40-59 Borderline >59 Desirable Performed By: #### C DP, CP, LIPR, TSHX, TREP, HIVCMB, HSVPR #### [facility] [address] [place] [id number] Box Folding Machine Operator: Satya Valdez MD #### AHCGEN #### [facility] [address] [employer] [address] [place], [place] [id number] Box Folding Machine Operator: Remi Harman MD Cholesterol in LDL [Mass/Vol] 145 mg/dL High 0-130 [facility] Comment on above: Result Comment: LDL Guidelines: <100 Desirable 100-129 Near to/above Desirable 130-159 Borderline >159 Undesirable Direct (measured) LDL and calculated LDL are not interchangeable tests. Performed By: #### C DP, CP, LIPR, TSHX, TREP, HIVCMB, HSVPR #### [facility] [address] [place] [id number] Box Folding Machine Operator: Satya Valdez MD #### AHCGEN #### [facility] [address] [place], [place] [phone] Box Folding Machine Operator: Remi Harman MD Cholesterol.total /Cholesterol in HDL [Mass ratio] 3.9 {ratio} Normal <5 [facility] Comment on above: Performed By: #### C DP, CP, LIPR, TSHX, TREP, HIVCMB, HSVPR #### [facility] [place] [address] Box Folding Machine Operator: Satya Valdez MD #### AHCGEN #### [facility] [address] [place], [place] [id number] Box Folding Machine Operator: Remi Harman MD Triglyceride [Mass/Vol] 138 mg/dL Normal <150 [facility] Comment on above: Result Comment: Triglyceride Guidelines: <150 Desirable 150-199 Borderline 200-499 High >499 Very high Based on AHA Guidelines for fasting triglyceride, May 2012. Performed By: #### C DP, CP, LIPR, TSHX, TREP, HIVCMB, HSVPR #### [facility] [address] [place] [id number] Box Folding Machine Operator: Satya Valdez MD #### AHCGEN #### [facility] [address], [place] [id number] Box Folding Machine Operator: Remi Harman MD Cholesterol in VLDL [Mass/Vol] NOT REPORTED Normal 1-30 [facility] Comment on above: Performed By: #### C DP, CP, LIPR, TSHX, TREP, HIVCMB, HSVPR #### [address] [address] Box Folding Machine Operator: Satya Valdez MD #### AHCGEN #### [facility] [address] [place], [place] [id number] Box Folding Machine Operator: Remi Harman MD Otheron 05-27-2019 Interpretation and review of laboratory results Abnormal [facility] [place] T.pallidum Ab Screenon 05-27 T.pallidum Ab Screen NONREACTIVE Normal NR [facility] Comment on above: Result Comment: T. pallidum antibodies are not detected. There is no serological evidence of infection with T. pallidum (early primary syphilis cannot be excluded). Retest in 2-4 weeks if syphilis is clinically suspect. Performed By: #### C DP, CP, LIPR, TSHX, TREP, HIVCMB, HSVPR #### [facility] [place], [place] [id number] Box Folding Machine Operator: Satya Valdez MD #### AHCGEN #### [facility] [address], [place] [id number] Box Folding Machine Operator: Remi Harman MD TSH w/reflex to FT4on 2018 TSH Qn 2.51 m[IU]/L Normal 0.30-5.00 [facility] Comment on above: Performed By: #### C DP, CP, LIPR, TSHX, TREP, HIVCMB, HSVPR #### [facility] [address] [place] [address] [phone] Box Folding Machine Operator: Satya Valdez MD #### AHCGEN #### [facility] [address], [place] [phone] Box Folding Machine Operator: Remi Harman MD TSH with Reflexon 05-27-2019 TSH Qn 2.51 m[IU]/L [place], [place] Trich Vag, Molecularon 05-27 Trich Vag, Molecular Negative Normal NEG [facility] Comment on above: Result Comment: T. v aginalis DNA not detected Results should be interpreted in conjunction with other clinical data. This test is intended for medical purposes only and is not valid for the evaluation of suspected sexual abuse or for other forensic purposes. This test has not been evaluated in women or in patients less than 16 years of age. Performed By: #### U CGP, TRCMOL #### [facility] [address] [place] [address] Box Folding Machine Operator: Satya Valdez MD Source: .URINE Normal [facility] Comment on above: Performed By: #### U CGP, TRCMOL #### [facility] [address] [place] [address] Box Folding Machine Operator: Satya Valdez MD CBC Auto Differentialon 10-0 Basophils (Bld) [#/Vol] 0.05 10*3/uL [place] Basophils/100 WBC (Bld) 1 % 0 - 2 % [place] Differential Type NOT REPORTED [place] Eosinophils (Bld) [#/Vol] 0.25 10*3/uL [place] Eosinophils/100 WBC (Bld) 4 % 1 - 4 % [place] Erythrocyte distribution width (RBC) [Ratio] 12.4 % 11.8 - 14.4 % [place] Hematocrit (Bld) [Volume fraction] 48.5 % 40.7 - 50.3 % [place] Hemoglobin (Bld) [Mass/Vol] 16.0 g/dL 13 - 17 g/dL [place] Immature granulocytes (Bld) [#/Vol] 0 % 0 [place] Immature granulocytes (Bld) [#/Vol] 10*3/uL [place] Lymphocytes (Bld) [#/Vol] 2.73 10*3/uL [place] Lymphocytes/100 WBC (Bld) 38 % 24 - 43 % [place] MCH (RBC) [Entitic mass] 30.5 pg 25.2 - 33.5 pg [place] MCHC (RBC) [Mass/Vol] 33.0 g/dL 28.4 - 34.8 g/dL [place] MCV (RBC) [Entitic vol] 92.4 fL 82.6 - 102.9 fL [place] Monocytes (Bld) [#/Vol] 0.61 10*3/uL [place] Monocytes/100 WBC (Bld) 9 % 3 - 12 % [place] Platelet mean volume (Bld) [Entitic vol] 9.9 fL 8.1 - 13.5 fL [place] Platelets (Bld) [#/Vol] NOT REPORTED [place] Platelets (Bld) [#/Vol] 370 10*3/uL [place] RBC (Bld) [#/Vol] 5.25 10*6/uL 4.21 - 5.7 7 m/uL [place] RBC morphology finding Nom (Bld) NOT REPORTED [place] Segmented neutrophils/100 WBC (Bld) 48 % 36 - 65 % [place] Segs Absolute 3.47 [place] WBC (Bld) [#/Vol] 7.1 10*3/uL [place] WBC (Bld) [#/Vol] 0.0 10*3/uL 0.0 per 10 0 WBC [place] WBC Morphology NOT REPORTED [place], [place] [facility] 05-26-2019 Cholesterol [Mass/Vol] 233 mg/dL High (<200) [facility] Work Phone: Comment on above: Note: Cholesterol Gu idelines:<200 [id number] Borderline>240 UndesirableResponsible Observer: CEEV AUTOFILE ([id number]) Triglyceride [Mass/Vol] 138 mg/dL (<150) [facility] Work Phone: Comment on above: Note: Triglyceride G uidelines:<150 [id number] High>499 Very highBased on AHA Guidelines for fasting triglyceride, May 2012.Responsible Observer: CEEV AUTOFILE ([id number]) Hematologyon 05-26-2019 Basophils/100 WBC (Bld) 1 % (0-2) [facility] Work Phone: Comment on above: Note: Responsible Ob server programmer: XNV AUTOFILE ([id number]) Eosinophils (Bld) [#/Vol] 0.25 10*3/uL (0.00-0.44) [facility] Work Phone: Comment on above: Note: Responsible Ob server programmer: XNV AUTOFILE ([id number]) Eosinophils/100 WBC (Bld) 4 % (1-4) [facility] Work Phone: Comment on above: Note: Responsible Ob server programmer: XNV AUTOFILE ([id number]) Hematocrit (Bld) [Volume fraction] 48.5 % (40.7-50.3) [facility] Work Phone: Comment on above: Note: Responsible Ob server programmer: XNV AUTOFILE ([id number]) Hemoglobin (Bld) [Mass/Vol] 16.0 g/dL (13.0-17.0) [facility] Work Phone: Comment on above: Note: Responsible Ob server programmer: XNV AUTOFILE ([id number]) Lymphocytes (Bld) [#/Vol] 2.73 10*3/uL (1.10-3.70) [facility] Work Phone: Comment on above: Note: Responsible Ob server programmer: XNV AUTOFILE ([id number]) Lymphocytes/100 WBC (Bld) 38 % (24-43) [facility] Work Phone: Comment on above: Note: Responsible Ob server programmer: XNV AUTOFILE ([id number]) MCH (RBC) [Entitic mass] 30.5 pg (25.2-33.5) [facility] Work Phone: Comment on above: Note: Responsible Ob server programmer: XNV AUTOFILE ([id number]) MCV (RBC) [Entitic vol] 92.4 fL (82.6-102.9) [facility] Work Phone: Comment on above: Note: Responsible Ob server programmer: XNV AUTOFILE ([id number]) Monocytes (Bld) [#/Vol] 0.61 10*3/uL (0.10-1.20) [facility] Work Phone: Comment on above: Note: Responsible Ob server programmer: XNV AUTOFILE ([id number]) Monocytes/100 WBC (Bld) 9 % (3-12) [facility] Work Phone: Comment on above: Note: Responsible Ob server programmer: XNV AUTOFILE ([id number]) Platelets (Bld) [#/Vol] NOT REPORTED [facility] Work Phone: Platelets (Bld) [#/Vol] 370 10*3/uL (138-453) [facility] Work Phone: Comment on above: Note: Responsible Ob server programmer: XNV AUTOFILE ([id number]) RBC (Bld) [#/Vol] 5.25 10*6/uL (4.21-5.77) [facility] Work Phone: Comment on above: Note: Responsible Ob server programmer: XNV AUTOFILE ([id number]) RBC morphology finding Nom (Bld) NOT REPORTED [facility] Work Phone: WBC (Bld) [#/Vol] 0.0 per_100_WBC (0.0) [facility] Work Phone: Comment on above: Note: Responsible Ob server programmer: XNV AUTOFILE ([id number]) WBC (Bld) [#/Vol] 7.1 10*3/uL (3.5-11.3) [facility] Work Phone: Comment on above: Note: Responsible Ob server programmer: XNV AUTOFILE ([id number]) Metabolic Panelon 05-26-2019 Albumin [Mass/Vol] 4.4 g/dL (3.5-5.2) [facility] Work Phone: Comment on above: Note: Responsible Ob server programmer: CEEV AUTOFILE ([id number]) ALT [Catalytic activity/Vol] 43 U/L High (5-41) [facility] Work Phone: Comment on above: Note: Responsible Ob server programmer: CEEV AUTOFILE ([id number]) Anion gap [Moles/Vol] 12 mmol/L (9-17) [facility] Work Phone: Comment on above: Note: Responsible Ob server programmer: CEEV AUTOFILE ([id number]) AST [Catalytic activity/Vol] 37 U/L (<40) [facility] Work Phone: Comment on above: Note: Responsible Ob server programmer: CEEV AUTOFILE ([id number]) Bilirubin [Mass/Vol] 0.38 mg/dL (0.3-1.2) [facility] Work Phone: Comment on above: Note: Responsible Ob server programmer: CEEV AUTOFILE ([id number]) Calcium [Mass/Vol] 9.7 mg/dL (8.6-10.4) [facility] Work Phone: Comment on above: Note: Responsible Ob server programmer: CEEV AUTOFILE ([id number]) Chloride [Moles/Vol] 100 mmol/L (98-107) [facility] Work Phone: Comment on above: Note: Responsible Ob server programmer: CEEV AUTOFILE ([id number]) CO2 [Moles/Vol] 27 mmol/L (20-31) [facility] Work Phone: Comment on above: Note: Responsible Ob server programmer: CEEV AUTOFILE ([id number]) Creatinine [Mass/Vol] 1.28 mg/dL High (0.70-1.20) [facility] Work Phone: Comment on above: Note: Responsible Ob server programmer: CEEV AUTOFILE ([id number]) Glucose [Mass/Vol] 77 mg/dL (70-99) [facility] Work Phone: Comment on above: Note: Responsible Ob server programmer: CEEV AUTOFILE ([id number]) Potassium [Moles/Vol] 3.9 mmol/L (3.7-5.3) [facility] Work Phone: Comment on above: Note: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
[2024-05-05 08:45] LABS: Basophils Percent Auto 0.5 % (0.2-2.0); Eosinophils Absolute Auto 0.1 10^3/uL (0.0-0.7); Eosinophils Percent Auto 1.4 % (0.9-7.0); Hematocrit 44.4 % (42.0-54.0); Hemoglobin 15.1 g/dL (14.0-18.0); Immature Granulocytes Abs Auto 0.01 10^3/uL (0.00-0.03); Immature Granulocytes Pct Auto 0.2 % (0.0-0.5); Lymphocytes Absolute Auto 1.7 10^3/uL (1.2-3.8); Lymphocytes Percent Auto 29.9 % (20.5-60.0); Mean Corpuscular Hemoglobin 31.5 pg (25.9-34.0); Mean Corpuscular Volume 92.5 fL (80.0-94.0); Mean Platelet Volume 9.4 fL (9.5-13.5); Monocytes Absolute Auto 0.8 10^3/uL (0.3-0.8); Neutrophils Absolute Auto 3.2 10^3/uL (1.4-6.5); Platelet Count 279 10^3/uL (150-450); Red Cell Distribution Width 12.7 % (11.0-15.0); White Blood Count 5.8 10^3/uL (4.0-11.0)
[2024-05-05 09:00] LABS: Estimated Average Glucose 94 mg/dL; Glycohemoglobin A1C 4.9 % (4.5-6.2)
[2024-05-05 09:01] LABS: Erythrocyte Sedimentation Rate 25 mm/hr (<=15)
[2024-05-05 10:16] LABS: Alanine Aminotransferase 420 U/L (16-63); Albumin Level 3.8 g/dL (3.4-5.0); Alkaline Phosphatase 83 U/L (46-116); Amylase 146 U/L (25-115); Anion Gap 9.8; Aspartate Amino Transferase 186 U/L (15-37); BUN Creatinine Ratio 14.5; Bilirubin Total 1.1 mg/dL (0.2-1.0); C Reactive Protein <0.50 mg/dL (<=0.50); Chloride 98 mmol/L (98-107); Estimated GFR (African America >60 (>=60); Estimated GFR (Non-African Ame >60 (>=60); Free T3 2.74 pg/mL (2.18-3.98); Globulin 3.7 g/dL; Glucose 84 mg/dL (74-106); Potassium 3.8 mmol/L (3.5-5.1); Sodium 135 mmol/L (136-145); Thyroid Stimulating Hormone 1.644 uIU/mL (0.358-3.740); Total Protein 7.5 g/dL (6.4-8.2)
== END 2024-05-05 07:05 | disposition home or self-care (01) ==
LOC: CARD 07:04
PROVIDERS: PCP Family Medicine; Visit Provider Family Medicine
DX: R41.3 Other amnesia (principal); I95.9 Hypotension, unspecified; J20.9 Acute bronchitis, unspecified; B19.20 Unspecified viral hepatitis C without hepatic coma; R73.09 Other abnormal glucose; E03.9 Hypothyroidism, unspecified; I50.30 Unspecified diastolic (congestive) heart failure; I11.0 Hypertensive heart disease with heart failure
CPT/HCPCS: 36415; 70551; 71046; 80053; 82150; 83036; 83690; 83880; 84436; 84443; 84481; 85025; 85652; 86140; 93246; 93306

== ENCOUNTER 2024-09-03 11:04 | Outpatient (OUT) | payer OTHER, SELFPAY ==
--- NOTE | 2024-09-03 11:07 | US_ITS ---
The [address] [address] Patient Name: LAWANDA RAND MRN: [id number] date: 1985 Sex: M Assigned Patient Location: US Current Patient Location: US Accession/Order Number: [id number] Exam Date: 09/03/2024 11:10 Report Date: 09/03/2024 12:47 At the request of: RANDY BSOCH Procedure: US abdomen limited EXAMINATION: US abdomen limited HISTORY: Soft Tissue Disorder COMPARISON: No relevant comparison available. FINDINGS: Grayscale and color ultrasound Identified in the region of the patient's palpable abnormality is a 4.9 x 0.7 x 1.1 cm area of hypoechogenicity with vascular flow this is just below the hypothalamus within the subcutaneous fat superficial to the muscle US/US abdomen limited IMPRESSION: Hypoechoic vascular mass corresponding to the patient's palpable abnormality. The differential diagnosis would include infection versus indeterminate soft tissue mass Electronically authenticated by: MAXIMUS HENRY Date: 09/03/2024 12:47
--- OUTSIDE RECORDS SUMMARY | 2024-09-03 11:26 | XMS_ITS | CCD ---
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 Negative [facility] Hepatitis Acute Panelon 05-19 HBsAg Screen Negative Normal Negative The [facility] Comment on above: Order Comment: Comme nt add RE TIME FOR AM LABS PER RN JANELL PSW 1741 Performed By: #### A MM #### [address] HCV Log10 6.775 Normal . [facility] Comment on above: Order Comment: Comme nt add RE TIME FOR AM LABS PER PREMA MELARA PSW 1741 Result Comment: Resu lt Units: log10 IU/mL Performed By: #### A MM #### [facility] [address] Hepatitis A Antibody IgM Negative Normal Negative [facility] Comment on above: Order Comment: Comme nt add RE TIME FOR AM LABS PER PREMA MELARA PSW 1741 Result Comment: A ne gative anti-HAV IgM result suggests no recent or current HAV infection. Performed By: #### A MM #### [facility] [address] Hepatitis B Core Antibody IgM Negative Normal Negative [facility] Comment on above: Order Comment: Comme nt add RE TIME FOR AM LABS PER RN JANELL PSW 1741 Performed By: #### A MM #### [address] Hepatitis C Quantitation [id number] Normal . [facility] Comment on above: Order Comment: Comme nt add RE TIME FOR AM LABS PER RN JANELL PSW 1741 Performed By: #### A MM #### [address] Hepatitis C Virus Antibody Reactive Critically abnormal Non Reactive [facility] Comment on above: Order Comment: Comme nt add RE TIME FOR AM LABS PER RN JANELL PSW 1741 Performed By: #### A MM #### [address] Interpretation Comment Normal . [facility] Comment on above: Order Comment: Comme nt add RE TIME FOR AM LABS PER RN JANELL PSW 1741 Result Comment: Posi tive HCV antibody screen with the presence of HCV RNA is consistent with active infection. Performed at: - [facility] [id number] Special Service Representative: Chad Knowles PhD, Phone: [phone] Performed at: - [facility] [address] [id number] Special Service Representative: Radha Cavazos MD, Phone: [phone] PERFORMED BY: [place] [address] PATHOLOGIST BRONZE CHASER CHARLES COBOS M.D. Performed By: #### A MM #### [address] Test Information: Comment Normal . [facility] Comment on above: Order Comment: Comme nt add RE TIME FOR AM LABS PER RN JANELL PSW 1741 Result Comment: The quantitative range of this assay is 15 IU/mL to 100 million IU/mL. Performed By: #### A MM #### [address] Hyaline casts [#/area] in Ur ine sediment by Automated countOrdered By: Selin Rowe on 06-06-2024 Hyaline casts Auto (Urine sed) [#/Area] None [LPF] 0-8 [facility] Ketones [Presence] in Urine by Test stripOrdered By: Selin Rowe on 06-06-2024 Ketones Ql (U) 1+ High Negative [facility] Comment on above: Order Comment: Name Collection Type:: Clean-Voided Midstream Performed By: #### A DDONUAPLUS #### [facility] [address] [place] [address] [place] Leukocyte esterase [Presence ] in Urine by Test stripOrdered By: Selin Rowe on 06-06-2024 Leukocyte esterase Test strip Ql (U) Negative Normal Negative [facility] Comment on above: Order Comment: Name Collection Type:: Clean-Voided Midstream Performed By: #### A DDONUAPLUS #### [facility] [address] [place] [address] [place] Leukocytes [#/area] in Urine sediment by Automated countOrdered By: Selin Rowe on 06-06-2024 WBC Auto (Urine sed) [#/Area] 5-9 [HPF] High 0-4 [facility] Mucus [Presence] in Urine by AutomatedOrdered By: Selin Rowe on 06-06-2024 Mucus Auto Ql (U) Rare [LPF] [facility] Nitrite Test strip Ql (U)Ord ered By: Selin Rowe on 06-06-2024 Nitrite Ql (U) Negative Negative [facility] No Panel InformationOrdered By: Maryam Díaz on 06-06-2024 Arterial Blood Base Excess 6.1 mmol/L High -3.0-3.0 [facility] Arterial Blood Oxygen Content 8.7 mmol/L 6.6-9.7 [facility] Arterial Blood Oxygen Saturation 99.2 % 95.0-100.0 [facility] Arterial Blood Partial Pressure CO2 43.7 mm[Hg] 35.0-45.0 [facility] Arterial Blood Partial Pressure O2 150.8 mm[Hg] High 80.0-100.0 [facility] Arterial Blood pH 7.46 High 7.35-7.45 [facility] Blood Gas Critical Value See comment [facility] Comment on above: Critical Value kurtz d on: 06/06/2024 at 05:17 Blood Gas PEEP 5 cmH2O [facility] Blood Gas Pressure Support 10.0 cmH2O [facility] Blood Gas Sample Site Right radial F [facility] FiO2 40 % [facility] Oxygen Delivery Device Bipap [facility] Protein [Mass/volume] in Uri ne by Test stripOrdered By: Selin Rowe on 06-06-2024 Protein (U) [Mass/Vol] 20 mg/dL High Negative [facility] Comment on above: Order Comment: Name Collection Type:: Clean-Voided Midstream Performed By: #### A DDONUAPLUS #### [facility] [address] [place] [address] Specific gravity Test strip (U) [Rel density]Ordered By: Selin Rowe on 06-06-2024 Specific gravity (U) [Rel density] 1.024 1.001-1.030 [facility] Thyrotropin [Units/volume] i n Serum or PlasmaOrdered By: Naren Hinson on 06-06-2024 TSH Qn 0.49 m[IU]/L Normal 0.45-5.33 [facility] Comment on above: Result Comment: PERF ORMED BY: [place] [address] PATHOLOGIST BRONZE CHASER CHARLES COBOS M.D. Performed By: #### T SH3, CMP #### [facility] [address] [place] [address] [place] Urine appearanceOrdered By: Selin Rowe on 06-06-2024 Appearance (U) Clear Normal Clear [facility] Comment on above: Order Comment: Name Collection Type:: Clean-Voided Midstream Performed By: #### A DDONUAPLUS #### [facility] [address] [place] [address] [place] Urobilinogen Test strip (U) [Mass/Vol]Ordered By: Selin Rowe on 06-06-2024 Urobilinogen (U) [Mass/Vol] Normal mg/dL Normal [facility] XR chest 1V portableon 10-19 -2024 XR chest 1V portable [facility] [address] [place] [address] XRay Report Signed Patient: Leonardo Roach MR#: [id number] : 1985 Acct:[id number] Age/Sex: 39 / M ADM Date: 06/05/24 Loc: Room: [address] [place] [address] Type: ADM IN Attending Dr: Maryam Díaz MD Copies to: FELIPE Eckert MD Ordering Provider: Selin Rowe APRN Date of Service: 06/06/24 XR/XR chest 1V portable: sob PORTABLE AP ERECT CHEST 1252 hours CLINICAL HISTORY: Shortness of breath. Overdose. COMPARISON: None The heart is within normal limits. There is no vascular congestion. Mild atelectasis is seen at the left base. There is no focal consolidation. There is a possible calcified granuloma at the right lower lobe. There is no effusion or pneumothorax. The osseous structures are intact. XR/XR chest 1V portable IMPRESSION: MINOR LEFT ATELECTASIS. NO ACUTE FINDINGS Impression dictated by: Mona Arriaza M.D.06/06/2024 1:56 PM Dictation Location: [place] [address] Transcribed By: [facility] 06/06/24 1356 Dictated By: Mona Arriaza MD 06/06/24 1353 Signed By: 06/06/24 1356 Normal [facility] pH of Urine by Test stripOrd ered By: Selin Rowe on 06-06-2024 pH (U) 6.0 [pH] Normal 5.0-9.0 [facility] Comment on above: Order Comment: Name Collection Type:: Clean-Voided Midstream Performed By: #### A DDONUAPLUS #### [address] Ammoniaon 06-05-2024 Ammonia (P) [Moles/Vol] 46 umol/L High 11-35 [facility] Comment on above: Result Comment: PERF ORMED BY: [place] [address] PATHOLOGIST BRONZE CHASER CHARLES COBOS M.D. Performed By: #### A MM #### [facility] [address] Arterial Blood Gason 024 ABG Base Excess 2.4 mmol/L Normal -3.0-3.0 [facility] Comment on above: Performed By: #### A BG #### Point of Care testing , ABG Frac Inspired O2 32 % Normal [facility] Comment on above: Performed By: #### A BG #### Point of Care testing , ABG Liter Flow 3 Normal [facility] Comment on above: Performed By: #### A BG #### Point of Care testing , ABG Oxygen Content 8.8 mmol/L Normal 6.6-9.7 [facility] Comment on above: Performed By: #### A BG #### Point of Care testing , ABG Oxygen Saturation 99.1 % Normal 95.0-100.0 [facility] Comment on above: Performed By: #### A BG #### Point of Care testing , ABG PCO2 73.9 mm[Hg] Off scale high 35.0-45.0 [facility] Comment on above: Performed By: #### A BG #### Point of Care testing , ABG PH 7.25 Low 7.35-7.45 [facility] Comment on above: Performed By: #### A BG #### Point of Care testing , ABG PO2 154.2 mm[Hg] Off scale high 80.0-100.0 [facility] Comment on above: Performed By: #### A BG #### Point of Care testing , CO2 [Moles/Vol] 34.1 mmol/L High 23.0-27.0 [facility] Comment on above: Performed By: #### A BG #### Point of Care testing , HCO3 (Bld) [Moles/Vol] 31.8 mmol/L High 23.0-29.0 [facility] Comment on above: Performed By: #### A BG #### Point of Care testing , Respiratory Critical Normal [facility] Comment on above: Result Comment: Crit ical Value called on: 06/05/2024 at 18:15 PERFORMED BY: [place] [address] PATHOLOGIST BRONZE CHASER CHARLES COBOS M.D. Performed By: #### A BG #### Point of Care testing , VBG Draw Site Left Radial Normal [facility] Comment on above: Performed By: #### A BG #### Point of Care testing , Automated basophil %Ordered By: Selin Rowe on 06-05-2024 Basophils/100 WBC (Bld) 0.4 % Normal . [facility] Comment on above: Performed By: #### A MM #### [address] Automated basophil countOrde red By: Selin Rowe on 06-05-2024 Basophils (Bld) [#/Vol] 0.0 10*3/uL Normal 0.0-0.2 [facility] Comment on above: Result Comment: PERF ORMED BY: [place] [address] PATHOLOGIST BRONZE CHASER CHARLES COBOS M.D. Performed By: #### A MM #### [address] Automated blood monocyte cou ntOrdered By: Selin Rowe on 06-05-2024 Monocytes (Bld) [#/Vol] 0.8 10*3/uL Normal 0.0-0.8 [facility] Comment on above: Performed By: #### A MM #### [address] Automated eosinophil %Ordere d By: Selin Rowe on 06-05-2024 Eosinophils/100 WBC (Bld) 0.8 % Normal . [facility] Comment on above: Performed By: #### A MM #### [address] Automated eosinophil countOr dered By: Selin Rowe on 06-05-2024 Eosinophils (Bld) [#/Vol] 0.1 10*3/uL Normal 0.0-0.45 [facility] Comment on above: Performed By: #### A MM #### [address] Automated monocyte %Ordered By: Selin Rowe on 06-05-2024 Monocytes/100 WBC (Bld) 11.9 % Normal . [facility] Comment on above: Performed By: #### A MM #### [address] Automated neutrophil %Ordere d By: Selin Rowe on 06-05-2024 Neutrophils/100 WBC (Bld) 65.8 % Normal . [facility] Comment on above: Performed By: #### A MM #### [address] Basic Metabolic Panelon 05-19 Anion gap [Moles/Vol] 9.3 mmol/L Normal 6.0-15.0 [facility] Comment on above: Performed By: #### A MM #### [address] Calcium [Mass/Vol] 8.8 mg/dL Normal 8.6-10.3 [facility] Comment on above: Performed By: #### A MM #### [address] Chloride [Moles/Vol] 98 mmol/L Normal 98-107 [facility] Comment on above: Performed By: #### A MM #### [address] CO2 [Moles/Vol] 34.2 mmol/L High 21.0-31.0 [facility] Comment on above: Performed By: #### A MM #### [address] Creatinine [Mass/Vol] 1.23 mg/dL Normal 0.70-1.30 [facility] Comment on above: Performed By: #### A MM #### [address] [address] [place] Creatinine Clr Calc Pharmacy 64.59 Normal [facility] Comment on above: Result Comment: PERF ORMED BY: [place] [address] PATHOLOGIST BRONZE CHASER CHARLES COBOS M.D. Performed By: #### A MM #### [place] [address] [place] GFR/1.73 sq M.predicted MDRD (S/P/Bld) [Vol rate/Area] mL/min/{1.73_m2} Normal [facility] Comment on above: Performed By: #### A MM #### [address] Glucose [Mass/Vol] 82 mg/dL Normal 70-100 [facility] Comment on above: Result Comment: [place] Glucose Reference Range is dependent on time and content of last meal. Glucose of more than 200 mg/dL in a nonstressed, ambulatory subject supports the diagnosis of Diabetes Mellitus. ADA recommended reference range Performed By: #### A MM #### [address] Potassium [Moles/Vol] 4.5 mmol/L Normal 3.5-5.1 [facility] Comment on above: Performed By: #### A MM #### [address] Sodium [Moles/Vol] 137 mmol/L Normal 136-145 [facility] Comment on above: Performed By: #### A MM #### [address] Urea nitrogen [Mass/Vol] 19 mg/dL Normal 7-25 [facility] Comment on above: Performed By: #### A MM #### [address] head/brain wo roxana 06-05 CT head/brain wo con [facility] [address] [place] [address] CT Scan Report Signed Patient: Leonardo Roach MR#: [id number] : 1985 Acct:[id number] Age/Sex: 39 / M ADM Date: 06/05/24 Loc: Room: [address] [place] [address] Type: ADM IN Attending Dr: Maryam Díaz MD Copies to: FELIPE Eckert MD Ordering Provider: Selin Rowe APRN Date of Service: 06/05/24 CT/CT head/brain wo con: Unresponsiveness CT head/brain wo con 06/05/2024 2:33 PM SIGNS AND SYMPTOMS: Unresponsiveness TECHNIQUE:Multi-detector CT axial slices of the brain were obtained without IV contrast. CT was performed with one or more of the following dose reduction techniques: Automated exposure control, adjustment of the mA and/or kV according to patient size, or use of iterative reconstruction technique. COMPARISON: None. FINDINGS: There is no shift of the midline structures, acute intracranial bleeding, mass effects, or evidence of acute ischemia. There is a prominent extra-axial space posteriorly in the posterior fossa consistent with arachnoid cyst. The ventricular system is normal in size. The brainstem and the cerebellum are unremarkable. The visualized intraorbital contents, the visualized paranasal sinuses, and the infratemporal soft tissues show no acute abnormality. The osseous structures in the skull base and the calvarium show no abnormality. CT/CT head/brain wo con IMPRESSION: No acute intracranial pathology. There is a prominent extra-axial space posteriorly in the posterior fossa consistent with arachnoid cyst. Impression dictated by: Paul Wayne M.D.06/05/2024 3:28 PM Dictation Location: [place] [address] Transcribed By: [facility] 06/05/24 1528 Dictated By: Paul Wayne II, MD 06/05/24 1526 Signed By: 06/05/24 1528 Normal [facility] Capillary blood glucose nessa urement by glucometer (mass/volume)Ordered By: Maryam Díaz on 06-05-2024 Glucose [Mass/Vol] 79 mg/dL Normal [facility] Comment on above: Random Glucose Refer ence Range is dependent on time and content of last meal. Glucose of more than 200 mg/dL in a nonstressed, ambulatory subject supports the diagnosis of Diabetes Mellitus. Result Comment: [facility] Glucose Reference Range is dependent on time and content of last meal. Glucose of more than 200 mg/dL in a nonstressed, ambulatory subject supports the diagnosis of Diabetes Mellitus. Performed By: #### G HOMAR #### Point of Care testing , Complete Blood Count Auto Di ffon 06-05-2024 Mean Corpuscular HGB Conc 34.3 g/dL Normal 32.5-35.6 [facility] Comment on above: Performed By: #### A MM #### [facility] [address] NRBC% 0.0 /100{WBC} Normal 0-0.5 [facility] Comment on above: Performed By: #### A MM #### [facility] [address] DRUG SCREEN, URINEon 024 AMPHETAMINE/METHAMP Positive Abnormal NEG [facility] Comment on above: Result Comment: Conf irmation available upon request. AMPH/METH screening cut off = 1000 ng/mL Performed By: #### D STARKEY #### [facility] ([id number]) [address] [place] [address] BARBITURATES Negative Normal NEG [facility] Comment on above: Result Comment: Audrey iturates screening cut off value = 200 ng/mL Performed By: #### D STARKEY #### [facility] ([id number]) [address] [place] [address] BENZODIAZEPINES Negative Normal NEG [facility] Comment on above: Result Comment: Jules odiazepines screening cut off value = 200 ng/mL Performed By: #### D STARKEY #### [facility] ([id number]) [address] [place] [address] CANNABINOIDS Positive Abnormal NEG [facility] Comment on above: Result Comment: Conf irmation available upon request. Cannabinoids/THC screening cut off value = 50 ng/mL Performed By: #### D STARKEY #### [facility] ([id number]) [address] [place] [address] COCAINE METABOLITE Negative Normal NEG [facility] Comment on above: Result Comment: Coca ine screening cut off value = 300 ng/mL Performed By: #### D STARKEY #### [facility] ([id number]) [address] [place] [address] ECSTASY Negative Normal NEG [facility] Comment on above: Result Comment: Ecst asy screening cut off value = 500 ng/mL This report is intended for use in clinical monitoring or management of patients. Performed By: #### D STARKEY #### [facility] ([id number]) [address] [place] [address] METHADONE Negative Normal NEG [facility] Comment on above: Result Comment: Meth adone screening cut off value = 300 ng/mL. Performed By: #### D STARKEY #### [facility] ([id number]) [address] [place] [address] OPIATES Negative Normal NEG [facility] Comment on above: Result Comment: Opia marilee screening cut off value = 300 ng/mL NOTE: This test is used for the detection of codeine, hydrocodone (>1000 ng/mL), morphine and hydromorphone (>900 ng/mL) in urine. Performed By: #### D STARKEY #### [facility] ([id number]) [address] [place] [address] [place] [address] OXYCODONE Negative Normal NEG [facility] Comment on above: Result Comment: Oxyc odone screening cut off value = 300 ng/mL NOTE: This test is used for the detection of oxycodone and oxymorphone in urine. Performed By: #### D STARKEY #### [facility] ([id number]) [address] [place] [address] PHENCYCLIDINE Negative Normal NEG [facility] Comment on above: Result Comment: Phen cyclidine screening cut off value = 25 ng/mL Performed By: #### D STARKEY #### [facility] ([id number]) [address] [place] [address], [place] [address] Erythrocyte distribution wid th [Ratio] by Automated countOrdered By: Selin Rowe on 06-05-2024 Erythrocyte distribution width (RBC) [Ratio] 13.6 % Normal 12.0-14.8 [facility] Comment on above: Performed By: #### A MM #### [place] [address] [place] Erythrocytes [#/volume] in B lood by Automated countOrdered By: Selin Rowe on 06-05-2024 RBC (Bld) [#/Vol] 4.21 10*6/uL Normal 3.90-5.60 [facility] Comment on above: Performed By: #### A MM #### [address] Glucose Poct Glucometerson 1 Commemt1 Glu2: Cleaned Meter Normal [facility] Comment on above: Result Comment: PERF ORMED BY: [place] [address] PATHOLOGIST BRONZE CHASER CHARLES COBOS M.D. Performed By: #### G HOMAR #### Point of Care testing , Hematocrit [Volume Fraction] of Blood by Automated countOrdered By: Selin Rowe on 06-05-2024 Hematocrit (Bld) [Volume fraction] 39.4 % Normal 38.8-50.0 [facility] Comment on above: Performed By: #### A MM #### [place] [address] [place] Hemoglobin [Mass/volume] in BloodOrdered By: Selin Rowe on 06-05-2024 Hemoglobin (Bld) [Mass/Vol] 13.5 g/dL Normal 13.0-17.0 [facility] Comment on above: Performed By: #### A MM #### [place] [address] [place] Leukocytes [#/volume] correc mayda for nucleated erythrocytes in Blood by Automated counOrdered By: Selin Rowe on 06-05-2024 WBC corrected for nucl RBC Auto (Bld) [#/Vol] 6.6 10*3/uL 4.1-10.5 [facility] Leukocytes [#/volume] in Blo od by Automated countOrdered By: Selin Rowe on 06-05-2024 WBC (Bld) [#/Vol] 6.6 10*3/uL Normal 4.1-10.5 [facility] Comment on above: Performed By: #### A MM #### [facility] [address] [place] [address] [place] Lymphocytes [#/volume] in Bl ood by Automated countOrdered By: Selin Rowe on 06-05-2024 Lymphocytes (Bld) [#/Vol] 1.4 10*3/uL Normal 1.00-4.8 [facility] Comment on above: Performed By: #### A MM #### [facility] [address] [place] [address] [place] Lymphocytes/100 leukocytes i n Blood by Automated countOrdered By: Selin Rowe on 06-05-2024 Lymphocytes/100 WBC (Bld) 21.1 % Normal . [facility] Comment on above: Performed By: #### A MM #### [place] [address] [place] MCH [Entitic mass] by Automa mayda countOrdered By: Selin Rowe on 06-05-2024 MCH (RBC) [Entitic mass] 32.1 pg Normal 27.5-35.2 [facility] Comment on above: Performed By: #### A MM #### [address] MCHC Auto (RBC) [Mass/Vol]Or dered By: Selin Rowe on 06-05-2024 MCHC (RBC) [Mass/Vol] 34.3 g/dL 32.5-35.6 [facility] MCV [Entitic volume] by Auto mated countOrdered By: Selin Rowe on 06-05-2024 MCV (RBC) [Entitic vol] 93.6 fL Normal 83.5-101 [facility] Comment on above: Performed By: #### A MM #### [address] Neutrophils [#/volume] in Bl ood by Automated countOrdered By: Selin Rowe on 06-05-2024 Neutrophils (Bld) [#/Vol] 4.3 10*3/uL Normal 1.8-7.7 [facility] Comment on above: Performed By: #### A MM #### [address] No Panel InformationOrdered By: Maryam Díaz on 06-05-2024 Bedside Glucose Comment Glu2: cleaned meter [facility] Blood Gas Liter Flow 3 L/min [facility] Nucleated erythrocytes [Pres ence] in Blood by Automated countOrdered By: Selin Rowe on 06-05-2024 Nucleated RBC Auto Ql (Bld) 0.0 /100{WBC} 0-0.5 [facility] Platelet mean volume [Entiti c volume] in Blood by Automated countOrdered By: Selin Rowe on 06-05-2024 Platelet mean volume (Bld) [Entitic vol] 7.7 fL Normal 6.6-10.1 [facility] Comment on above: Performed By: #### A MM #### [address] Platelets [#/volume] in Bloo d by Automated countOrdered By: Selin Rowe on 06-05-2024 Platelets (Bld) [#/Vol] 262 10*3/uL Normal 150-450 [facility] Comment on above: Performed By: #### A MM #### [facility] [address] [place] [address] [place] URN MACROSCOPIC NURon 2023 BILIRUBIN VIRGIE Negative Normal NEG [facility] Comment on above: Performed By: #### N UM #### [facility] ([id number]) [address] [place] [address], [place] [address] BLOOD/HGB VIRGIE Negative Normal NEG [facility] Comment on above: Performed By: #### N UM #### [facility] ([id number]) [address] [place] [address] GLUCOSE VIRGIE Negative Normal NEG [facility] Comment on above: Performed By: #### N UM #### [facility] ([id number]) [address] [place] [address] [place] [address] KETONES VIRGIE Negative Normal NEG [facility] Comment on above: Performed By: #### N UM #### [facility] ([id number]) [address] [place] [address] LEUKOCYTE ESTERASE VIRGIE Negative Normal NEG [facility] Comment on above: Performed By: #### N UM #### [facility] ([id number]) [address] [place] [address] NITRITE VIRGIE Negative Normal NEG [facility] Comment on above: Performed By: #### N UM #### [facility] ([id number]) [address] [place] [address] PH VIRGIE 5.0 Normal 5.0-8.5 [facility] Comment on above: Performed By: #### N UM #### [facility] ([id number]) [address] [place] [address] PROTEIN VIRGIE 30 mg/dL Abnormal NEG [facility] Comment on above: Performed By: #### N UM #### [facility] ([id number]) [address] [place] [address] [place] [address] SPECIFIC GRAVITY VIRGIE 1.025 Normal 1.003-1.035 [facility] Comment on above: Performed By: #### N UM #### [facility] ([id number]) [address] [place] [address] [place] [address] UROBILINOGEN VIRGIE 0.2 eu/dL Normal <1.1 [facility] Comment on above: Performed By: #### N UM #### [facility] ([id number]) [address] [place] [address] 61878 XR chest 1V portableon 06-05 XR chest 1V portable [facility] [place] [address] [place] [address] XRay Report Signed Patient: Leonardo Roach MR#: [id number] : 1985 Acct:[id number] Age/Sex: 39 / M ADM Date: 06/05/24 Loc: Room: [address] [place] [address] Type: ADM IN Attending Dr: Maryam Díaz MD Copies to: FELIPE Eckert MD Ordering Provider: Selin Rowe APRN Date of Service: 06/05/24 XR/XR chest 1V portable: Shortness of breath SINGLE VIEW CHEST CLINICAL HISTORY: Shortness of breath. COMPARISON: None FINDINGS: Heart normal in size. Lungs are clear. No free air. XR/XR chest 1V portable IMPRESSION: NO ACUTE FINDINGS Impression dictated by: Delano Keen Jr., D.O.06/05/2024 3:02 PM Dictation Location: [place] [address] Transcribed By: [facility] 06/05/24 1502 Dictated By: Delano Keen Jr, DO 06/05/24 1459 Signed By: 06/05/24 1502 Normal [facility] ACETAMINOPHENon 06-04-2024 Acetaminophen [Mass/Vol] 2.5 ug/mL Low 10.0-30.0 [facility] Comment on above: Result Comment: Refe rence ranges are for therapeutic limits. Performed By: #### T HYR, CMP, 4024-6, CBCA, 3298-7, 5643-2 #### [facility] ([id number]) [address] [place] [address] CBC AND AUTO DIFFon 06-04-20 ABSOLUTE BASOPHIL 0.0 X10E9/L Normal 0.0-0.2 [facility] Comment on above: Performed By: #### T HYR, CMP, 4024-6, CBCA, 3298-7, 5643-2 #### [facility] ([id number]) [address] [place] [address] ABSOLUTE NEUTROPHIL 8.5 X10E9/L High 1.5-6.6 [facility] Comment on above: Performed By: #### T HYR, CMP, 4024-6, CBCA, 3298-7, 5643-2 #### [facility] ([id number]) [address] [place] [address] Basophils/100 WBC (Bld) 0.1 % Normal [facility] Comment on above: Performed By: #### T HYR, CMP, 4024-6, CBCA, 3298-7, 5643-2 #### [facility] ([id number]) [address] [place] [address] Eosinophils (Bld) [#/Vol] 0.0 10*3/uL Normal 0.0-0.4 [facility] Comment on above: Performed By: #### T HYR, CMP, 4024-6, CBCA, 3298-7, 5643-2 #### [facility] ([id number]) [address] [place] [address] Eosinophils/100 WBC (Bld) 0.3 % Normal [facility] Comment on above: Performed By: #### T HYR, CMP, 4024-6, CBCA, 3298-7, 5643-2 #### [facility] ([id number]) [address] [place] [address] 018[address] Erythrocyte distribution width (RBC) [Ratio] 13.8 % Normal 11.5-15.0 [facility] Comment on above: Performed By: #### T HYR, CMP, 4024-6, CBCA, 3298-7, 5643-2 #### [facility] ([id number]) [address] [place] [address] Hematocrit (Bld) [Volume fraction] 40.2 % Normal 39-49 [facility] Comment on above: Performed By: #### T HYR, CMP, 4024-6, CBCA, 3298-7, 5643-2 #### [facility] ([id number]) [address] [place] [address] 79184 Hemoglobin (Bld) [Mass/Vol] 13.6 g/dL Normal 13.0-17.0 [facility] Comment on above: Performed By: #### Uzma HYR, CMP, 4024-6, CBCA, 3298-7, 5643-2 #### [facility] ([id number]) [address] [place] [address] Lymphocytes (Bld) [#/Vol] 0.6 10*3/uL Low 1.0-3.5 [facility] Comment on above: Performed By: #### T HYR, CMP, 4024-6, CBCA, 3298-7, 5643-2 #### [facility] ([id number]) [address] [place] [address] 385[address] Lymphocytes/100 WBC (Bld) 6.2 % Normal [facility] Comment on above: Performed By: #### T HYR, CMP, 4024-6, CBCA, 3298-7, 5643-2 #### [facility] ([id number]) [address] [place] [address]341 MCH (RBC) [Entitic mass] 31.7 pg Normal 27-34 [facility] Comment on above: Performed By: #### T HYR, CMP, 4024-6, CBCA, 3298-7, 5643-2 #### [facility] ([id number]) [address] [place] [address] 68838 MCHC (RBC) [Mass/Vol] 33.9 g/dL Normal 32-36 [facility] Comment on above: Performed By: #### T HYR, CMP, 4024-6, CBCA, 3298-7, 5643-2 #### [facility] ([id number]) [address] [place] [address] 53599 MCV (RBC) [Entitic vol] 94 fL Normal 80-100 [facility] Comment on above: Performed By: #### T HYR, CMP, 4024-6, CBCA, 3298-7, 5643-2 #### [facility] ([id number]) [address] [place] [address] 18994 Monocytes (Bld) [#/Vol] 0.8 10*3/uL Normal 0-0.9 [facility] Comment on above: Performed By: #### T HYR, CMP, 4024-6, CBCA, 3298-7, 5643-2 #### [facility] ([id number]) [address] [place] [address] 39115 Monocytes/100 WBC (Bld) 8.3 % Normal [facility] Comment on above: Performed By: #### T HYR, CMP, 4024-6, CBCA, 3298-7, 5643-2 #### [facility] ([id number]) [address] [place] [address] 60932 Neutrophils/100 WBC (Bld) 85.1 % Normal [facility] Comment on above: Performed By: #### T HYR, CMP, 4024-6, CBCA, 3298-7, 5643-2 #### [facility] ([id number]) [address] [place] [address] 43213 Platelet mean volume (Bld) [Entitic vol] 7.3 fL Normal 7-12 [facility] Comment on above: Performed By: #### T HYR, CMP, 4024-6, CBCA, 3298-7, 5643-2 #### [facility] ([id number]) [address] [place] [address] 51439 Platelets (Bld) [#/Vol] 283 10*3/uL Normal 150-450 [facility] Comment on above: Performed By: #### T HYR, CMP, 4024-6, CBCA, 3298-7, 5643-2 #### [facility] ([id number]) [address] [place] [address] 75446 RBC COUNT 4.30 X10E12/L Normal 4.10-5.70 [facility] Comment on above: Performed By: #### T HYR, CMP, 4024-6, CBCA, 3298-7, 5643-2 #### [facility] ([id number]) [address] [place] [address] 84903 WBC (Bld) [#/Vol] 10.0 10*3/uL Normal 4.0-11.0 [facility] Comment on above: Performed By: #### T HYR, CMP, 4024-6, CBCA, 3298-7, 5643-2 #### [facility] ([id number]) [address] [place] [address] 58985 COMPREHENSIVE METABOLIC PANE Nando 06-04-2024 Albumin [Mass/Vol] 4.0 g/dL Normal 3.2-5.3 [facility] Comment on above: Performed By: #### T HYR, CMP, 4024-6, CBCA, 3298-7, 5643-2 #### [facility] ([id number]) [address] [place] [address] 19698 ALP [Catalytic activity/Vol] 71 U/L Normal 39-130 [facility] Comment on above: Performed By: #### T HYR, CMP, 4024-6, CBCA, 3298-7, 5643-2 #### [facility] ([id number]) [address] [place] [address] 72856 ALT [Catalytic activity/Vol] 239 U/L High 0-40 [facility] Comment on above: Performed By: #### T HYR, CMP, 4024-6, CBCA, 3298-7, 5643-2 #### [facility] ([id number]) [address] [place] [address] 98961 Anion gap [Moles/Vol] 6 mmol/L Normal 5-15 [facility] Comment on above: Performed By: #### T HYR, CMP, 4024-6, CBCA, 3298-7, 5643-2 #### [facility] ([id number]) [address] [place] [address] 52781 AST [Catalytic activity/Vol] 134 U/L High 0-41 [facility] Comment on above: Performed By: #### T HYR, CMP, 4024-6, CBCA, 3298-7, 5643-2 #### [facility] ([id number]) [address] [place] [address] 87494 Bilirubin [Mass/Vol] 0.2 mg/dL Low 0.3-1.2 [facility] Comment on above: Performed By: #### T HYR, CMP, 4024-6, CBCA, 3298-7, 5643-2 #### [facility] ([id number]) [address] [place] [address] 41011 Calcium [Mass/Vol] 8.4 mg/dL Low 8.5-10.5 [facility] Comment on above: Performed By: #### T HYR, CMP, 4024-6, CBCA, 3298-7, 5643-2 #### [facility] ([id number]) [address] [place] [address] 95286 Chloride [Moles/Vol] 97 mmol/L Low 98-109 [facility] Comment on above: Performed By: #### T HYR, YAQUELIN, 4024-6, CBCA, 3298-7, 5643-2 #### [facility] ([id number]) [address] [place] [address] 46014 CO2 [Moles/Vol] 30 mmol/L Normal 22-32 [facility] Comment on above: Performed By: #### T HYR, YAQUELIN, 4024-6, CBCA, 3298-7, 5643-2 #### [facility] ([id number]) [address] [place] [address] 81772 Creatinine [Mass/Vol] 1.49 mg/dL High 0.70-1.20 [facility] Comment on above: Result Comment: METH OD TRACEABLE TO IDMS STANDARD Performed By: #### T HUGOR, YAQUELIN, 4024-6, CBCA, 3298-7, 5643-2 #### [facility] ([id number]) [address] [place] [address] 08013 GFR/1.73 sq M.predicted among non-blacks MDRD (S/P/Bld) [Vol rate/Area] 60 mL/min/{1.73_m2} Normal >59 [facility] Comment on above: Result Comment: Reported eGFR is based on the CKD-EPI 2020 equation that does not use a race coefficient. Performed By: #### T HYR, YAQUELIN, 4024-6, CBCA, 3298-7, 5643-2 #### [facility] ([id number]) [address] [place] [address] 74389 Glucose [Mass/Vol] 131 mg/dL High 65-99 [facility] Comment on above: Performed By: #### T HYR, CMP, 4024-6, CBCA, 3298-7, 5643-2 #### [facility] ([id number]) [address] [place] [address] 43362 Potassium [Moles/Vol] 4.3 mmol/L Normal 3.5-5.0 [facility] Comment on above: Performed By: #### T HYR, CMP, 4024-6, CBCA, 3298-7, 5643-2 #### [facility] ([id number]) [address] [place] [address] 05842 Protein [Mass/Vol] 6.8 g/dL Normal 6.0-8.0 [facility] Comment on above: Performed By: #### T HYR, CMP, 4024-6, CBCA, 3298-7, 5643-2 #### [facility] ([id number]) [address] [place] [address] 89440 Sodium [Moles/Vol] 133 mmol/L Low 134-146 [facility] Comment on above: Performed By: #### Uzma HYR, YAQUELIN, 4024-6, CBCA, 3298-7, 5643-2 #### [facility] ([id number]) [address] [place] [address] 58733 Urea nitrogen [Mass/Vol] 15 mg/dL Normal 5-23 [facility] Comment on above: Performed By: #### T HYR, CMP, 4024-6, CBCA, 3298-7, 5643-2 #### [facility] ([id number]) [address] [place] [address] 87260 ETHANOLon 06-04-2024 Ethanol [Mass/Vol] mg/dL Normal 0.00-0.08 [facility] Comment on above: Result Comment: This report is intended for use in clinical monitoring or management of patients. Performed By: #### T HYR, CMP, 4024-6, CBCA, 3298-7, 5643-2 #### [facility] ([id number]) [address] [place] [address] 71040 Salicylates [Mass/Vol]on SALICYLATE <4.0 Normal 2.0-25.0 [facility] Comment on above: Result Comment: Refe rence ranges are for therapeutic limits. Performed By: #### T HYR, CMP, 4024-6, CBCA, 3298-7, 5643-2 #### [facility] ([id number]) [address] [place] [address] 92870 THYROID PROFILEon 06-04-2024 Free T4 [Mass/Vol] 0.91 ng/dL Normal 0.61-1.60 [facility] Comment on above: Performed By: #### T HYR, CMP, 4024-6, CBCA, 3298-7, 5643-2 #### [facility] ([id number]) [address] [place] [address] 40496 TSH 3.15 uIU/mL Normal 0.49-4.67 [facility] Comment on above: Performed By: #### T HYR, CMP, 4024-6, CBCA, 3298-7, 5643-2 #### [facility] ([id number]) [address] [place] [address] 16051 Provider Letteron 05-11-2024 Provider Letter Provider Letter May 11, 20[address] [id number] : 1985 Dear Leonardo, We have been trying to reach you with no success. It is important that you return our call regarding your referral from Dr. Bosch to see [facility]. Please call the office to schedule a consultation appointment upon receiving this letter. Also, at the time of your call, please provide us with your current information. Thank you for your prompt attention to this matter. Sincerely, [facility] [phone] Normal [facility] [place] CT BRAIN WO CONTon 4 CT BRAIN [...] Hiren Yeung MD on 01/06/2024 2:01 AM [facility] CT FACIAL BONES WO CONTon CT FACIAL [...] Yeung MD on 01/06/2024 1:47 AM Normal [facility] H PYLORI ANTIBODY IGGon 11-17 H. PYLORI IGG ABS 0.13 Index Value Normal 0.00-0.79 [facility] Comment on above: Result Comment: Nega tive <0.80 Equivocal 0.80 - 0.89 Positive >0.89 Performed By: #### V ITAD, IRON #### Laboratory [address] [place] [address] Dr. Kinjal Ruvalcaba HEPATITIS PANEL, ACUTEon HBsAg Screen Negative Normal Negative [facility] Comment on above: Performed By: #### V ITAD, IRON #### Laboratory [address] [place] [address] [address] Kinjal Ruvalcaba HCV AB Reactive Abnormal Non Reactive The Comment on above: Performed By: #### V ITAD, IRON #### Laboratory [address] [address] [address] Kinjal Ruvalcaba HCV log10 Normal [facility] Comment on above: Performed By: #### V ITAD, IRON #### Laboratory [address] [address] [address] Kinjal Ruvalcaba HCV log10 7.004 log10 IU/mL Normal [facility] Comment on above: Performed By: #### V ITAD, IRON #### Laboratory [address] [address] [address] Kinjal Ruvalcaba HCV RNA (International Units) 61038080 IU/mL Normal [facility] Comment on above: Performed By: #### V ITAD, IRON #### Laboratory [address] [place] [address] [address] Kinjal Ruvalcaba Hep A Ab, IgM Negative Normal Negative [facility] Comment on above: Performed By: #### V ITAD, IRON #### Laboratory [address] [address] [address] Kinjal Ruvalcaba Hep B Core Ab, IgM Negative Normal Negative [facility] Comment on above: Performed By: #### V ITAD, IRON #### Laboratory [address] [place] [address] Dr. Kinjal Ruvalcaba Hep C Quantitation See Final Results [facility] Comment on above: Performed By: #### V ITAD, IRON #### Laboratory [address] [place] [address] Dr. Kinjal Ruvalcaba Interpretation Comment Normal [facility] Comment on above: Result Comment: Posi tive HCV antibody screen with the presence of HCV RNA is consistent with active infection. Performed By: #### V ITAD, IRON #### Laboratory [address] [place] [address] Dr. Kinjal Ruvalcaba Test Information: Comment Normal [facility] Comment on above: Result Comment: The quantitative range of this assay is 15 IU/mL to 100 million IU/mL. Performed By: #### V ITAD, IRON #### Laboratory [address] [place] [address] Dr. Kinjal Ruvalcaba INSULINon 11-19-2022 Insulin 4.5 uIU/mL Normal 2.6-24.9 The Comment on above: Performed By: #### I NSULIN #### Laboratory [address] [place] [address] Dr. Kinjal Ruvalcaba TESTOSTERONE, TOTALon 2022 Testosterone [Mass/Vol] 603 ng/dL Normal 264-916 [facility] Comment on above: Result Comment: Adul t male reference interval is based on a population of healthy nonobese males (BMI <30) between 19 and 39 years old. brady Zhong.al. JCEM 2017,102;0023-1829. PMID: [id number]. Performed By: #### V ITAD, IRON #### Laboratory [address] [place] [address] Dr. Kinjal Ruvalcaba CBC AUTO DIFFon 11-16-2022 BASO # 0.0 103/ul Normal 0.0-0.1 [facility] Comment on above: Performed By: #### C BC #### Laboratory [address] [place] [address] Dr. Kinjal Ruvalcaba Basophils/100 WBC (Bld) 0.4 % Normal 0.2-2.0 [facility] Comment on above: Performed By: #### C BC #### Laboratory [address] [address] [address] Kinjal Ruvalcaba EO # 0.0 103/ul Normal 0.0-0.7 [facility] Comment on above: Performed By: #### C BC #### Laboratory [address] [address] [address] Kinjal Ruvalcaba Eosinophils/100 WBC (Bld) 0.1 % Critically low 0.9-7.0 [facility] Comment on above: Performed By: #### C BC #### Laboratory [address] [place] [address] Dr. Kinjal Ruvalcaba Erythrocyte distribution width (RBC) [Ratio] 11.9 % Normal 11.0-15.0 [facility] Comment on above: Performed By: #### C BC #### Laboratory [address] [place] [address] Dr. Kinjal Ruvalcaba Hematocrit (Bld) [Volume fraction] 41.3 % Critically low 42.0-54.0 [facility] Comment on above: Performed By: #### C BC #### Laboratory [address] [place] [address] Dr. Kinjal Ruvalcaba Hemoglobin (Bld) [Mass/Vol] 14.6 g/dL Normal 14.0-18.0 [facility] Comment on above: Performed By: #### C BC #### Laboratory [address] [place] [address] Dr. Kinjal Ruvalcaba IG # 0.02 10e3/ul Normal 0.00-0.03 [facility] Comment on above: Performed By: #### C BC #### Laboratory [address] [place] [address] Dr. Kinjal Ruvalcaba IG % 0.3 % Normal 0.0-0.5 [facility] Comment on above: Performed By: #### C BC #### Laboratory [address] [place] [address] Dr. Kinjal Ruvalcaba LYMPH # 1.2 103/ul Normal 1.2-3.8 [facility] Comment on above: Performed By: #### C BC #### Laboratory [address] [place] [address] Dr. Kinjal Ruvalcaba Lymphocytes/100 WBC (Bld) 15.7 % Critically low 20.5-60.0 [facility] Comment on above: Performed By: #### C BC #### Laboratory [address] [place] [address] Dr. Kinjal Ruvalcaba MANUAL DIFF REQ NO Normal [facility] Comment on above: Performed By: #### C BC #### Laboratory [address] [place] [address] Dr. Kinjal Ruvalcaba MCH (RBC) [Entitic mass] 31.0 pg Normal 25.9-34.0 [facility] Comment on above: Performed By: #### C BC #### Laboratory [address] [place] [address] Dr. Kinjal Ruvalcaba MCHC (RBC) [Mass/Vol] 35.4 g/dL Critically high 29.9-35.2 [facility] Comment on above: Performed By: #### C BC #### Laboratory [address] [place] [address] Dr. Kinjal Ruvalcaba MCV (RBC) [Entitic vol] 87.7 fL Normal 80.0-94.0 [facility] Comment on above: Performed By: #### C BC #### Laboratory [address] [address] [address] Kinjal Ruvalcaba MONO # 0.4 103/ul Normal 0.3-0.8 [facility] Comment on above: Performed By: #### C BC #### Laboratory [address] [address] [address] Kinjal Ruvalcaba Monocytes/100 WBC (Bld) 5.2 % Normal 1.7-12.0 [facility] Comment on above: Performed By: #### C BC #### Laboratory [address] [place] [address] Dr. Kinjal Ruvalcaba NEUT # 6.0 103/ul Normal 1.4-6.5 [facility] Comment on above: Performed By: #### C BC #### Laboratory [address] [place] [address] Dr. Kinjal Ruvalcaba Neutrophils/100 WBC (Bld) 78.3 % Critically high 43.0-75.0 [facility] Comment on above: Performed By: #### C BC #### Laboratory [address] [place] [address] Dr. Kinjal Ruvalcaba Platelet mean volume (Bld) [Entitic vol] 10.7 fL Normal 9.5-13.5 [facility] Comment on above: Performed By: #### C BC #### Laboratory [address] [place] [address] Dr. Kinjal Ruvalcaba PLT 243 103/ul Normal 150-450 The Comment on above: Performed By: #### C BC #### Laboratory [address] [place] [address] Dr. Kinjal Ruvalcaba RBC 4.71 106/ul Normal 4.70-6.10 The Comment on above: Performed By: #### C BC #### Laboratory [address] [place] [address] Dr. Kinjal Ruvalcaba WBC 7.7 103/ul Normal 4.0-11.0 The Comment on above: Performed By: #### C BC #### Laboratory [address] [place] [address] Dr. Kinjal Ruvalcaba CULTURE URINEon 11-16-2022 CULTURE URINE Culture Observations : NO GROWTH. Normal [facility] Comment on above: Performed By: #### U RCX #### Laboratory [address] [address] [address] Kinjal Ruvalcaba FREE THYROXINE INDEX T7on FTI 3.75 Normal 1.30-4.50 [facility] Comment on above: Performed By: #### L IPID, CMP, T7, TSH #### Laboratory [address] [place] [address] Dr. Kinjal Ruvalcaba T3U 31.0 % Critically low 33.0-40.0 [facility] Comment on above: Performed By: #### L IPID, CMP, T7, TSH #### Laboratory [address] [place] [address] Dr. Kinjal Ruvalcaba T4 [Mass/Vol] 12.10 ug/dL Normal 4.50-12.10 [facility] Comment on above: Performed By: #### L IPID, CMP, T7, TSH #### Laboratory [address] [address] [address] Kinjal Ruvalcaba GLYCOHEMOGLOBIN A1Con 2022 ADA RECOMMENDATION SEE BELOW Normal The [facility] [place] [facility] Comment on above: Result Comment: ADA RECOMMENDED LIMIT 4.0 - 6.0 ADA THERAPEUTIC TARGET < 7.0 ACTION SUGGESTED > 7.0 Performed By: #### V ITAD, IRON #### Laboratory [address] [place] [address] Dr. Kinjal Ruvalcaba Glucose [Mass/Vol] 100 mg/dL Normal [facility] [place] [facility] Comment on above: Performed By: #### V ITAD, IRON #### Laboratory [address] [place] [address] Dr. Kinjal Ruvalcaba HbA1c (Bld) [Mass fraction] 5.1 % Normal 4.5-6.2 [facility] Comment on above: Performed By: #### V ITAD, IRON #### Laboratory [address] [place] [address] Dr. Kinjal Ruvalcaba IRONon 11-16-2022 Iron [Mass/Vol] 110.0 ug/dL Normal 65.0-175.0 [facility] Comment on above: Performed By: #### V ITAD, IRON #### Laboratory [address] [address] [address] Kinjal Ruvalcaba LIPID PROFILEon 11-16-2022 CHOL-HDL RATIO NORM SEE BELOW Normal [facility] Comment on above: Result Comment: 3.3 - 4.4 LOW RISK 4.4 - 7.1 AVERAGE RISK 7.1 - 11.0 MODERATE RISK >11.0 HIGH RISK Performed By: #### L IPID, CMP, T7, TSH #### Laboratory [address] [address] [address] Kinjal Ruvalcaba Cholesterol [Mass/Vol] 185 mg/dL Normal <=200 [facility] Comment on above: Performed By: #### L IPID, CMP, T7, TSH #### Laboratory [address] [address] [address] Kinjal Ruvalcaba Cholesterol in HDL [Mass/Vol] 63 mg/dL Critically high 40-60 [facility] Comment on above: Performed By: #### L IPID, CMP, T7, TSH #### Laboratory [address] [address] [address] Kinjal Ruvalcaba Cholesterol in LDL [Mass/Vol] 107.6 mg/dL Normal [facility] Comment on above: Performed By: #### L IPID, CMP, T7, TSH #### Laboratory [address] [address] [address] Kinjal Ruvalcaba Cholesterol.total/Cho lesterol in HDL [Mass ratio] 2.9 {ratio} Normal [facility] Comment on above: Performed By: #### L IPID, CMP, T7, TSH #### Laboratory [address] [address] [address] Kinjal Ruvalcaba HDL NORMAL > or = 60 mg/dl - LO W CARDIOVASCULAR RISK <40 mg/dl - HIGH CARDIOVASCULAR RISK Normal [facility] Comment on above: Performed By: #### L IPID, CMP, T7, TSH #### Laboratory [address] [address] [address] Kinjal Ruvalcaba LDL CALC NORMAL SEE BELOW Normal The [facility] Comment on above: Result Comment: <100 mg/dl OPTIMAL 100 - 129 mg/dl NEAR OR ABOVE OPTIMAL 130 - 159 mg/dl BORDERLINE HIGH 160 - 189 mg/dl HIGH >190 mg/dl VERY HIGH Performed By: #### L IPID, CMP, T7, TSH #### Laboratory [address] [address] [address] Kinjal Ruvalcaba Triglyceride [Mass/Vol] 72 mg/dL Normal <=150 [facility] Comment on above: Performed By: #### L IPID, CMP, T7, TSH #### Laboratory [address] [address] [address] Kinjal Ruvalcaba VLDL CALC 14.4 mg/dL Normal [facility] Comment on above: Performed By: #### L IPID, CMP, T7, TSH #### Laboratory [address] [address] [address] Kinjal Ruvalcaba MICROALBUMIN, RAND URon 03-3 mALB <1.3 Normal <=30.0 [facility] Comment on above: Performed By: #### M ALBR #### Laboratory [address] [address] [address] Kinjal Ruvalcaba PROF 14(COMP METB)on 023 Albumin [Mass/Vol] 4.4 g/dL Normal 3.4-5.0 [facility] Comment on above: Performed By: #### L IPID, CMP, T7, TSH #### Laboratory [address] [address] [address] Kinjal Ruvalcaba Albumin/Globulin [Mass ratio] 1.4 {ratio} Normal [facility] Comment on above: Performed By: #### L IPID, CMP, T7, TSH #### Laboratory [address] [address] [address] Kinjal Ruvalcaba ALP [Catalytic activity/Vol] 67 U/L Normal 46-116 [facility] Comment on above: Performed By: #### L IPID, CMP, T7, TSH #### Laboratory [address] [address] [address] Kinjal Ruvalcaba ALT [Catalytic activity/Vol] 69 U/L Critically high 16-63 [facility] Comment on above: Performed By: #### L IPID, CMP, T7, TSH #### Laboratory [address] [place] [address] Dr. Kinjal Ruvalcaba Anion gap [Moles/Vol] 15.3 mmol/L Normal [facility] Comment on above: Performed By: #### L IPID, CMP, T7, TSH #### Laboratory [address] [place] [address] Dr. Kinjal Ruvalcaba AST [Catalytic activity/Vol] 29 U/L Normal 15-37 [facility] Comment on above: Performed By: #### L IPID, CMP, T7, TSH #### Laboratory [address] [place] [address] Dr. Kinjal Ruvalcaba Bilirubin [Mass/Vol] 0.8 mg/dL Normal 0.2-1.0 [facility] Comment on above: Performed By: #### L IPID, CMP, T7, TSH #### Laboratory [address] [place] [address] Dr. Kinjal Ruvalcaba Calcium [Mass/Vol] 9.1 mg/dL Normal 8.5-10.1 [facility] Comment on above: Performed By: #### L IPID, CMP, T7, TSH #### Laboratory [address] [address] [address] Kinjal Ruvalcaba Chloride [Moles/Vol] 102 mmol/L Normal 98-107 [facility] Comment on above: Performed By: #### L IPID, CMP, T7, TSH #### Laboratory [address] [place] [address] Dr. Kinjal Ruvalcaba CO2 [Moles/Vol] 25.5 mmol/L Normal 21.0-32.0 [facility] Comment on above: Performed By: #### L IPID, CMP, T7, TSH #### Laboratory [address] [place] [address] Dr. Kinjal Ruvalcaba Creatinine [Mass/Vol] 1.41 mg/dL Critically high 0.70-1.30 [facility] Comment on above: Performed By: #### L IPID, CMP, T7, TSH #### Laboratory [address] [address] [address] Kinjal Ruvalcaba EGFR-AF ISRAELI >60 Normal >=60 [facility] Comment on above: Performed By: #### L IPID, CMP, T7, TSH #### Laboratory [address] [address] [address] Kinjal Ruvalcaba EGFR-NON AF ISRAELI 56 mL/min/1.73m2 Critically low >=60 [facility] Comment on above: Performed By: #### L IPID, CMP, T7, TSH #### Laboratory [address] [address] [address] Kinjal Ruvalcaba Globulin (S) [Mass/Vol] 3.1 g/dL Normal [facility] Comment on above: Performed By: #### L IPID, CMP, T7, TSH #### Laboratory [address] [address] [address] Kinjal Ruvalcaba Glucose [Mass/Vol] 115 mg/dL Critically high 74-[address] [facility] Comment on above: Performed By: #### L IPID, CMP, T7, TSH #### Laboratory [address] [address] [address] Kinjal Ruvalcaba Potassium [Moles/Vol] 3.8 mmol/L Normal 3.5-5.1 [facility] Comment on above: Performed By: #### L IPID, CMP, T7, TSH #### Laboratory [address] [address] [address] Kinjal Ruvalcaba Protein [Mass/Vol] 7.5 g/dL Normal 6.4-8.2 [facility] [place] [facility] Comment on above: Performed By: #### L IPID, CMP, T7, TSH #### Laboratory [address] [address] [address] Kinjal Ruvalcaba Sodium [Moles/Vol] 139 mmol/L Normal 136-145 [facility] Comment on above: Performed By: #### L IPID, CMP, T7, TSH #### Laboratory [address] [address] [address] Kinjal Ruvalcaba Urea nitrogen [Mass/Vol] 13.0 mg/dL Normal 7.0-18.0 [facility] Comment on above: Performed By: #### L IPID, CMP, T7, TSH #### Laboratory [address] [place] [address] Dr. Kinjal Ruvalcaba Urea nitrogen/Creatinine [Mass ratio] 9.2 mg/mg Normal [facility] Comment on above: Performed By: #### L IPID, CMP, T7, TSH #### Laboratory [address] [place] [address] Dr. Kinjal Ruvalcaba TSHon 11-16-2022 TSH 3.152 uIU/mL Normal 0.358-3.740 [facility] Comment on above: Performed By: #### L IPID, CMP, T7, TSH #### Laboratory [address] [place] [address] Dr. Kinjal Ruvalcaba UA RANDOM W/MICROSCOPICon BACTERIA NONE SEEN Normal NONE SEEN [facility] Comment on above: Performed By: #### V ITAD, IRON #### Laboratory [address] [place] [address] Dr. Kinjal Ruvalcaba Bilirubin Ql (U) Negative Normal NEGATIVE The [facility] Comment on above: Performed By: #### V ITAD, IRON #### Laboratory [address] [place] [address] Dr. Kinjal Ruvalcaba CAST NONE SEEN Normal NONE SEEN [facility] Comment on above: Performed By: #### V ITAD, IRON #### Laboratory [address] [place] [address] Dr. Kinjal Ruvalcaba Clarity (U) CLEAR Normal CLEAR [facility] Comment on above: Performed By: #### V ITAD, IRON #### Laboratory [address] [place] [address] Dr. Kinjal Ruvalcaba Color (U) YELLOW Normal YELLOW [facility] Comment on above: Performed By: #### V ITAD, IRON #### Laboratory [address] [address] [address] Kinjal Ruvalcaba Crystals LM Nom (Urine sed) NONE SEEN Normal NONE SEEN [facility] Comment on above: Performed By: #### V ITAD, IRON #### Laboratory [address] [address] [address] Kinjal Ruvalcaba Epithelial cells LM Ql (Urine sed) RARE Normal NONE SEEN /RARE The Comment on above: Performed By: #### V ITAD, IRON #### Laboratory [address] [address] [address] Kinjal Ruvalcaba Glucose Ql (U) Negative Normal NEGATIVE [facility] Comment on above: Performed By: #### V ITAD, IRON #### Laboratory [address] [place] [address] Dr. Kinjal Ruvalcaba Hemoglobin Ql (U) Negative Normal NEGATIVE The [facility] Comment on above: Performed By: #### V ITAD, IRON #### Laboratory [address] [place] [address] Dr. Kinjal Ruvalcaba Ketones Ql (U) TRACE Abnormal NEGATIVE [facility] Comment on above: Performed By: #### V ITAD, IRON #### Laboratory [address] [place] [address] Dr. Kinjal Ruvalcaba LEUKOCYTES Negative Normal NEGATIVE The Comment on above: Performed By: #### V ITAD, IRON #### Laboratory [address] [place] [address] Dr. Kinjal Ruvalcaba MUCOUS NONE SEEN Normal NONE SEEN [facility] Comment on above: Performed By: #### V ITAD, IRON #### Laboratory [address] [address]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 [place]/multiple_crcl_2011.htm Performed By: #### C DP, CP, LIPR, TSHX, TREP, HIVCMB, HSVPR #### [address] [phone] Special Service Representative: Satya Valdez MD #### AHIshmaelGEN #### [facility] [address] [place], [place] [phone] Special Service Representative: Remi Harman MD Albumin [Mass/Vol] 4.4 g/dL Normal 3.5-5.2 [facility] Comment on above: Performed By: #### C DP, CP, LIPR, TSHX, TREP, HIVCMB, HSVPR #### [address] [phone] Special Service Representative: Satya Valdez MD #### AHCGEN #### [facility] [address] [place], [place] [phone] Special Service Representative: Remi Harman MD Albumin/Globulin [Mass ratio] 1.9 {ratio} Normal 1.0-2.5 [facility] Comment on above: Performed By: #### C DP, CP, LIPR, TSHX, TREP, HIVCMB, HSVPR #### [address] [phone] Special Service Representative: Satya Valdez MD #### AHCGEN #### [facility] [address] [place], [place] [phone] Special Service Representative: Remi Harman MD Alkaline Phos 63 U/L Normal 40-129 [facility] Comment on above: Performed By: #### C DP, CP, LIPR, TSHX, TREP, HIVCMB, HSVPR #### [address] [address] Special Service Representative: Satya Valdez MD #### AHCGEN #### [address] [phone] Special Service Representative: Remi Harman MD ALT [Catalytic activity/Vol] 50 U/L High 5-41 [facility] Comment on above: Performed By: #### C DP, CP, LIPR, TSHX, TREP, HIVCMB, HSVPR #### [address] [address] Special Service Representative: Satya Valdez MD #### AHCGEN #### [address] [phone] Special Service Representative: Remi Harman MD Anion gap [Moles/Vol] 15 mmol/L Normal 9-[address] [facility] Comment on above: Performed By: #### C DP, CP, LIPR, TSHX, TREP, HIVCMB, HSVPR #### [address] [address] Special Service Representative: Satya Valdez MD #### AHCGEN #### [facility] [address] [place] [address] [phone] Special Service Representative: Remi Harmna MD AST [Catalytic activity/Vol] 37 U/L Normal <40 [facility] Comment on above: Performed By: #### C DP, CP, LIPR, TSHX, TREP, HIVCMB, HSVPR #### [address] [address] Special Service Representative: Satya Valdez MD #### AHCGEN #### [facility] [address] [place], [place] [phone] Special Service Representative: Remi Harman MD Bilirubin Ql (U) 0.35 mg/dL Normal 0.3-1.[address] [facility] Comment on above: Performed By: #### C DP, CP, LIPR, TSHX, TREP, HIVCMB, HSVPR #### [address] [address] Special Service Representative: Satya Valdez MD #### AHCGEN #### [address] [phone] Special Service Representative: Remi Harman MD Calcium [Mass/Vol] 9.6 mg/dL Normal 8.6-10.4 [facility] Comment on above: Performed By: #### C DP, CP, LIPR, TSHX, TREP, HIVCMB, HSVPR #### [address] [address] Special Service Representative: Satya Valdez MD #### AHCGEN #### [facility] [address] [place], [place] [phone] Special Service Representative: Remi Harman MD Chloride [Moles/Vol] 101 mmol/L Normal 98-107 [facility] Comment on above: Performed By: #### C DP, CP, LIPR, TSHX, TREP, HIVCMB, HSVPR #### [address] [address] Special Service Representative: Satya Valdez MD #### AHCGEN #### [facility] [address] [place] [address] Special Service Representative: Remi Harman MD CO2 [Moles/Vol] 24 mmol/L Normal 20-31 [facility] Comment on above: Performed By: #### C DP, CP, LIPR, TSHX, TREP, HIVCMB, HSVPR #### [address] [address] Special Service Representative: Satya Valdez MD #### AHCGEN #### [address] [address] Special Service Representative: Remi Harman MD Creatinine [Mass/Vol] 1.26 mg/dL High 0.70-1.[address] [facility] Comment on above: Performed By: #### C DP, CP, LIPR, TSHX, TREP, HIVCMB, HSVPR #### [address] [address] Special Service Representative: Satya Valdez MD #### AHCGEN #### [address] [address] Special Service Representative: Remi Harman MD GFR, Amer >60 Normal >[address] [facility] Comment on above: Performed By: #### C DP, CP, LIPR, TSHX, TREP, HIVCMB, HSVPR #### [address] [address] Special Service Representative: Satya Valdez MD #### AHCGEN #### [address] [phone] Special Service Representative: Remi Harman MD GFR,non Amer >60 Normal >60 [facility] Comment on above: Performed By: #### C DP, CP, LIPR, TSHX, TREP, HIVCMB, HSVPR #### [address] [address] Special Service Representative: Satya Valdez MD #### AHCGEN #### [facility] [address] [place] [address] [phone] Special Service Representative: Remi Harman MD Glucose [Mass/Vol] 85 mg/dL Normal 70-99 [facility] Comment on above: Performed By: #### C DP, CP, LIPR, TSHX, TREP, HIVCMB, HSVPR #### [address] [address] Special Service Representative: Satya Valdez MD #### AHCGEN #### [facility] [address] [place] [address] Special Service Representative: Remi Harman MD Potassium [Moles/Vol] 4.2 mmol/L Normal 3.7-5.[address] [facility] Comment on above: Performed By: #### C DP, CP, LIPR, TSHX, TREP, HIVCMB, HSVPR #### [address] [address] Special Service Representative: Satya Valdez MD #### AHCGEN #### [facility] [address] [place] [phone] Special Service Representative: Remi Harman MD Protein [Mass/Vol] 6.7 g/dL Normal 6.4-8.3 [facility] Comment on above: Performed By: #### C DP, CP, LIPR, TSHX, TREP, HIVCMB, HSVPR #### [address] [address] Special Service Representative: Satya Valdez MD #### AHCGEN #### [facility] [address] [place] [address] [phone] Special Service Representative: Remi Harman MD Sodium [Moles/Vol] 140 mmol/L Normal 135-144 [facility] Comment on above: Performed By: #### C DP, CP, LIPR, TSHX, TREP, HIVCMB, HSVPR #### [address] [address] Special Service Representative: Satya Valdez MD #### AHCGEN #### [facility] [address] [place], [place] [phone] Special Service Representative: Remi Harman MD Urea nitrogen [Mass/Vol] 16 mg/dL Normal 6-20 [facility] Comment on above: Performed By: #### C DP, CP, LIPR, TSHX, TREP, HIVCMB, HSVPR #### [facility] [address] [place] [address] Special Service Representative: Satya Valdez MD #### AHCGEN #### [facility] [address] [place] [address] Special Service Representative: Remi Harman MD HIV Ag/Abon 05-18-2020 HIV Ag/Ab NONREACTIVE Normal NR [facility] Comment on above: Result Comment: No l aboratory evidence of HIV infection. If acute HIV infection is suspected, consider testing for HIV-1 RNA. Performed By: #### C DP, CP, LIPR, TSHX, TREP, HIVCMB, HSVPR #### [address] [address] Special Service Representative: Satya Valdez MD #### AHCGEN #### [facility] [address] [place], [place] [phone] Special Service Representative: Remi Harman MD Hep A Ab,IgMon 05-18-2020 Hep A Ab,IgM NONREACTIVE (NR) [facility] Comment on above: Performed By: #### C DP, CP, LIPR, TSHX, TREP, HIVCMB, HSVPR #### [address] [address] Special Service Representative: Satya Valdez MD #### AHCGEN #### [facility] [address] [place], [place] [phone] Special Service Representative: Remi Harman MD Note: Responsible Ob bistro server: CEEV AUTOFILE (3003) Hep B Core Abon 05-18-2020 Hep B Core Ab NONREACTIVE (NR) [facility] Comment on above: Performed By: #### C DP, CP, LIPR, TSHX, TREP, HIVCMB, HSVPR #### [address] [address] Special Service Representative: Satya Valdez MD #### DREAGEN #### [facility] [address] [place] [address] Special Service Representative: Reim Harman MD Note: Responsible Ob bistro server: CEEV AUTOFILE (3003) Hep B Surf Abon 05-18-2020 Hep B Surf Ab <3.50 Normal <10 [facility] Comment on above: Result Comment: REFERENCE RANGE: <10.0 NON-REACTIVE/NOT IMMUNE >=10.0 REACTIVE/IMMUNE Performed By: #### C DP, CP, LIPR, TSHX, TREP, HIVCMB, HSVPR #### [address] [address] Special Service Representative: Satya Valdez MD #### DREAGEN #### [facility] [address] [place] [address] Special Service Representative: Remi Harman MD Hep B Surf Agon 05-18-2020 Hep B Surf Ag NONREACTIVE (NR) [facility] Comment on above: Performed By: #### C DP, CP, LIPR, TSHX, TREP, HIVCMB, HSVPR #### [address] [address] Special Service Representative: Satya Valdez MD #### AHCGEN #### [facility] [address] [place] [address] Special Service Representative: Remi Harman MD Note: Responsible Ob bistro server: CEEV AUTOFILE (3003) Lipid Prof, Fastingon 2019 Cholesterol [Mass/Vol] 191 mg/dL Normal <200 [facility] Comment on above: Result Comment: Cholesterol Guidelines: <200 Desirable 200-240 Borderline >240 Undesirable Performed By: #### C DP, CP, LIPR, TSHX, TREP, HIVCMB, HSVPR #### [address] [address] Special Service Representative: Sayta Valdez MD #### AHCGEN #### [address] [phone] Special Service Representative: Remi Harman MD Cholesterol in HDL [Mass/Vol] 55 mg/dL Normal >40 [facility] Comment on above: Result Comment: HDL Guidelines: <40 Undesirable 40-59 Borderline >59 Desirable Performed By: #### C DP, CP, LIPR, TSHX, TREP, HIVCMB, HSVPR #### [address] [address] Special Service Representative: Satya Valdez MD #### AHCGEN #### [address] [phone] Special Service Representative: Remi Harman MD Cholesterol in LDL [Mass/Vol] 79 mg/dL Normal 0-130 [facility] Comment on above: Result Comment: LDL Guidelines: <100 Desirable 100-129 Near to/above Desirable 130-159 Borderline >159 Undesirable Direct (measured) LDL and calculated LDL are not interchangeable tests. Performed By: #### C DP, CP, LIPR, TSHX, TREP, HIVCMB, HSVPR #### [address] [address] Special Service Representative: Satya Valdez MD #### AHCGEN #### [address] [address] Special Service Representative: Remi Harman MD Cholesterol.total/Cho lesterol in HDL [Mass ratio] 3.5 {ratio} Normal <5 [facility] Comment on above: Performed By: #### C DP, CP, LIPR, TSHX, TREP, HIVCMB, HSVPR #### [address] [address] Special Service Representative: Satya Valdez MD #### AHCGEN #### [facility] [address] [place], [place] [phone] Special Service Representative: Remi Harman MD Triglyceride,Fasting 287 mg/dL High <150 [facility] Comment on above: Result Comment: Triglyceride Guidelines: <150 Desirable 150-199 Borderline 200-499 High >499 Very high Based on AHA Guidelines for fasting triglyceride, May 2012. Performed By: #### C DP, CP, LIPR, TSHX, TREP, HIVCMB, HSVPR #### [address] [address] Special Service Representative: Satya Valdez MD #### DREAGEN #### [address] [phone] Special Service Representative: Remi Harman MD Liver Fibrosis Panelon 05-18 Platelet Cnt,Fibro 293 [facility] Comment on above: Performed By: #### C DP, CP, LIPR, TSHX, TREP, HIVCMB, HSVPR #### [address] [address] Special Service Representative: Satya Valdez MD #### AHCGEN #### [address] [address] Special Service Representative: Remi Harman MD Note: Responsible Ob bistro server: FELIPA CORRAL (129) PSA, Screeningon 05-18-2020 Prostatic Spec. Ag 0.49 ug/L (<4.1) [facility] Comment on above: Result Comment: The Martina ECLIA assay is used. Results obtained with different assay methods cannot be used interchangeably. Performed By: #### C DP, CP, LIPR, TSHX, TREP, HIVCMB, HSVPR #### [address] [phone] Special Service Representative: Satya Valdez MD #### AHCGEN #### [facility] [address] [place] [address] Special Service Representative: Remi Harman MD Note: The [employer] ECL IA assay is used. Results obtained with different assay methodscannot be used interchangeably.Responsible Observer: CEEV AUTOFILE (7453) TSH w/reflex to FT4on 2019 TSH Qn 0.93 m[IU]/L Normal 0.30-5.00 [facility] Comment on above: Performed By: #### C DP, CP, LIPR, TSHX, TREP, HIVCMB, HSVPR #### [address] [phone] Special Service Representative: Satya Valdez MD #### DREAGEN #### [facility] [address] [place] [address] Special Service Representative: Remi Harman MD CBCon 05-17-2020 WBC (Bld) [#/Vol] 0.0 10*3/uL 0.0 per 10 0 WBC [place], [place] [facility] 05-17-2020 Cholesterol [Mass/Vol] 191 mg/dL (<200) [facility] Work Phone: Comment on above: Note: Cholesterol Gu idelines:<200 [id number] Borderline>240 UndesirableResponsible Observer: EMETERIO PENALOZA (0714) Comp Metabolic Profon 2019 BUN/CRE Ratio NOT REPORTED (05-08) [facility] Comment on above: Performed By: #### C DP, CP, LIPR, TSHX, TREP, HIVCMB, HSVPR #### [facility] [address] [place] [address] [phone] Special Service Representative: Satya Valdez MD #### AHCGEN #### [facility] [address] [place] [address] Special Service Representative: Remi Harman MD Staging: NOT REPORTED [facility] Comment on above: Performed By: #### C DP, CP, LIPR, TSHX, TREP, HIVCMB, HSVPR #### [facility] [address] [place] [address] [phone] Special Service Representative: Satya Valdez MD #### AHCGEN #### [facility] [address] [place] [address] Special Service Representative: Remi Harman MD HCV Genotype, PCRon 05-17-20 20 HCV Viral Load NOT REPORTED [facility] Comment on above: Performed By: #### C DP, CP, LIPR, TSHX, TREP, HIVCMB, HSVPR #### [address] [phone] Special Service Representative: Satya Valdez MD #### AHCGEN #### [facility] [address] [place] [address] Special Service Representative: Remi Harman MD Hematologyon 05-17-2020 Hematocrit (Bld) [Volume fraction] 44.0 % (40.7-50.3) [place], [place] Comment on above: Note: Responsible Ob bistro server: XNV AUTOFILE (3018) Hemoglobin (Bld) [Mass/Vol] 14.6 g/dL (13.0-17.0) [place] Comment on above: Note: Responsible Ob bistro server: XNV AUTOFILE (3018) MCH (RBC) [Entitic mass] 31.1 pg (25.2-33.5) [place] Comment on above: Note: Responsible Ob bistro server: XNV AUTOFILE (3018) MCV (RBC) [Entitic vol] 93.6 fL (82.6-102.9) [place] Comment on above: Note: Responsible Ob bistro server: XNV AUTOFILE (3018) Platelets (Bld) [#/Vol] 293 10*3/uL (138-453) [place] Comment on above: Note: Responsible Ob bistro server: XNV AUTOFILE (3018) RBC (Bld) [#/Vol] 4.70 10*6/uL (4.21-5.77) [place], [place] Comment on above: Note: Responsible Ob bistro server: XNV AUTOFILE (3017) WBC (Bld) [#/Vol] 6.1 10*3/uL (3.5-11.3) [place] Comment on above: Note: Responsible Ob bistro server: XNV AUTOFILE (3017) INR Coag (PPP) [Relative time] 1.0 {INR} [place] Comment on above: Therapeutic Range: Moderate Anticoagulant Intensity: INR = 2.0-3.0 High Anticoagulant Intensity: INR = 2.5-3.5 Note: Therapeutic Ra nge:Moderate Anticoagulant Intensity:INR = 2.0-3.0High Anticoagulant Intensity:INR = 2.5-3.5Responsible Observer: AUTOFILE BCS (2005) PT Coag (PPP) [Time] 10.2 s (9.0-12.0) [place], [place] Comment on above: Note: Responsible Ob bistro server: AUTOFILE BCS (2005) WBC (Bld) [#/Vol] 0.0 per_100_WBC (0.0) [facility] Work Phone: Comment on above: Note: Responsible Ob bistro server: XNV AUTOFILE (3017) Hepatitis A Antibody, IgMon 05-17-2020 HAV IgM IA Qn (S) NONREACTIVE NONREACTIVE [place], [place] Hepatitis B Core Antibody, T otalon 05-17-2020 Hep B Core Total Ab NONREACTIVE NONREACTIVE [place], [place] Hepatitis B Surface Antibody on 05-17-2020 HBV surface Ab (S) [Titer] <3.50 <10 mIU/mL [place], [place] Comment on above: REFERENCE RANGE: <10.0 NON-REACTIVE/NOT IMMUNE >=10.0 REACTIVE/IMMUNE Hepatitis B Surface Antigeno n 05-17-2020 Hepatitis B Surface Ag NONREACTIVE NONREACTIVE [place] Lipid Prof, Fastingon 2019 Cholesterol in VLDL [Mass/Vol] NOT REPORTED Normal 09-17 [facility] Comment on above: Performed By: #### C DP, CP, LIPR, TSHX, TREP, HIVCMB, HSVPR #### [facility] [address] [place] [address] Special Service Representative: Satya Valdez MD #### AHCGEN #### [facility] [address] [place] [address] Special Service Representative: Remi Harman MD Metabolic Panelon 05-17-2020 Albumin [Mass/Vol] 4.4 g/dL (3.5-5.2) [facility] Work Phone: Comment on above: Note: Responsible Ob bistro server: EMETERIO PENALOZA (8196) ALT [Catalytic activity/Vol] 50 U/L High (5-41) [facility] Work Phone: Comment on above: Note: Responsible Ob bistro server: EMETERIO PENALOZA (931) Anion gap [Moles/Vol] 15 mmol/L (9-17) [facility] Work Phone: Comment on above: Note: Responsible Ob bistro server: EMETERIO PENALOZA (3792) AST [Catalytic activity/Vol] 37 U/L (<40) [facility] Work Phone: Comment on above: Note: Responsible Ob bistro server: EMETERIO PENALOZA (731) Bilirubin [Mass/Vol] 0.35 mg/dL (0.3-1.2) [facility] Work Phone: Comment on above: Note: Responsible Ob bistro server: EMETERIO PENALOZA (382) Calcium [Mass/Vol] 9.6 mg/dL (8.6-10.4) [facility] Work Phone: Comment on above: Note: Responsible Ob bistro server: EMETERIO PENALOZA (4991) Chloride [Moles/Vol] 101 mmol/L (98-107) [facility] Work Phone: Comment on above: Note: Responsible Ob bistro server: EMETERIOSHANA PENALOZA (5106) CO2 [Moles/Vol] 24 mmol/L (20-31) [facility] Work Phone: Comment on above: Note: Responsible Ob bistro server: EMETERIO PENALOZA (230) Creatinine [Mass/Vol] 1.26 mg/dL High (0.70-1.20) [facility] Work Phone: Comment on above: Note: Responsible Ob bistro server: EMETERIO PENALOZA (146) Glucose [Mass/Vol] 85 mg/dL (70-99) [facility] Work Phone: Comment on above: Note: Responsible Ob bistro server: EMETERIO TREMAINE (137) Potassium [Moles/Vol] 4.2 mmol/L (3.7-5.3) [facility] Work Phone: Comment on above: Note: Responsible Ob bistro server: EMETERIO PENALOZA (374) Protein [Mass/Vol] 6.7 g/dL (6.4-8.3) [facility] Work Phone: Comment on above: Note: Responsible Ob bistro server: EMETERIO PENALOZA (335) Sodium [Moles/Vol] 140 mmol/L (135-144) [facility] Work Phone: Comment on above: Note: Responsible Ob bistro server: EMETERIO PENALOZA (370) Urea nitrogen [Mass/Vol] 16 mg/dL (6-20) [facility] Work Phone: Comment on above: Note: Responsible Ob bistro server: EMETERIO PENALOZA (3912) Urea nitrogen [Mass/Vol] 17 mg/dL (7-20) [facility] Work Phone: Comment on above: Note: Responsible Ob bistro server: [facility] (0603) Otheron 05-17-2020 HIV Ag/Ab NONREACTIVE (NR) [facility], [place] Comment on above: No laboratory eviden ce of HIV infection. If acute HIV infection is suspected, consider testing for HIV-1 RNA. Note: No laboratory evidence of HIV infection. If acute HIV infection is suspected,consider testing for HIV-1 RNA.Responsible Observer: BURT SCHMIDT (8607) Erythrocyte distribution width (RBC) [Ratio] 12.8 % (11.8-14.4) [place], [place] Comment on above: Note: Responsible Ob bistro server: XNV AUTOFILE (3018) MCHC (RBC) [Mass/Vol] 33.2 g/dL (28.4-34.8) [place], [place] Comment on above: Note: Responsible Ob bistro server: XNV AUTOFILE (3018) Platelet mean volume (Bld) [Entitic vol] 10.3 fL (8.1-13.5) [place], [place] Comment on above: Note: Responsible Ob bistro server: XNV AUTOFILE (3018) (cont.) See Note [facility] Work Phone: Comment on above: Note: Average GFR fo r 30-39 years old:107 mL/min/1.73sq mChronic Kidney Disease:<60 mL/min/1.73sq mKidney failure:<15 mL/min/1.73sq meGFR calculated using average adult body mass. Additional eGFR calculatoravailable at:http://www.iHigh.lovemeshare.me/multiple_crcl_2012.htmResponsible Observer: EMETERIO PENALOZA (3459) A2 Macroglob, Fibro 240 mg/dL (131-293) [facility] Work Phone: Comment on above: Note: Responsible Ob bistro server: [facility] (0603) Albumin/Glob Ratio 1.9 (1.0-2.5) [facility] Work Phone: Comment on above: Note: Responsible Ob bistro server: EMETERIO PENALOZA (9735) Alkaline Phos 63 U/L (40-129) [facility] Work Phone: Comment on above: Note: Responsible Ob bistro server: EMETERIO PENALOZA (4848) ALT, Fibro 58 U/L High (5-50) [facility] Work Phone: Comment on above: Note: Responsible Ob bistro server: [facility] (0603) Amphetamine <20 ng/mL [facility] Work Phone: Comment on above: Note: (NOTE)INTERPRE [...] determined by [facility]. See Compliance Statement B: [facility]com/CSResponsible Observer: [facility] (0603) Amphetamines, S/P Positive (Cutoff 20) [facility] Work Phone: Comment on above: Note: (NOTE)If the s creen is positive, then confirmation by mass spectrometrywill be added. Additional charges will apply.Unconfirmed positive may be useful for medical purposes, but doesnot meet forensic standards.Responsible Observer: [facility] (0603) AST, Fibro 38 U/L (9-50) [facility] Work Phone: Comment on above: Note: Responsible Ob bistro server: [facility] (0603) Barbiturates, S/P Negative (Cutoff 50) [facility] Work Phone: Comment on above: Note: Responsible Ob bistro server: [facility] (0603) Benzodiazepines, S/P Negative (Cutoff 50) [facility] Work Phone: Comment on above: Note: Responsible Ob bistro server: [facility] (0603) Buprenorphine, S/P Negative (Cutoff 1) [facility] Work Phone: Comment on above: Note: Responsible Ob bistro server: [facility] (0603) Cannabinoids, S/P 62 ng/mL [facility] Work Phone: Comment on above: Note: (NOTE)INTERPRE TIVE INFORMATION: THC Metabolite, Serum orPlasma, QuantitativeMethodology: Quantitative Liquid Chromatography-Tandem MassSpectrometry.Positive cutoff: 5 ng/mLFor medical purposes only; not valid for forensic use.The drug analyte detected in this assay, 9-carboxy THC, is ametabolite of qvibn-3-mraaygjosmqtemsdjlyf (THC). Detection of9-carboxy THC suggests use of, or exposure to, a productcontaining THC. This test cannot distinguish between prescribedor non-prescribed forms of THC, nor can it distinguish betweenactive or passive use. The plasma half-life for 9-carboxy THCmetabolite is estimated to range from 4-12 hours.Test developed and characteristics determined by [facility]. See Compliance Statement B: [facility]/CSPerformed By: [employer] [place] [address] [id number] Director: Terese Muniz MDResponsible Observer: LAB ALEJANDROCHANTEL (7254) Cholesterol,HDL 55 mg/dL (>40) [facility] Work Phone: Comment on above: Note: HDL Guidelines :<40 Flvzojzykpi81-89 Borderline>59 DesirableResponsible Observer: EMETERIO PENALOZA (9826) Cholesterol,LDL 79 mg/dL (0-130) [facility] Work Phone: Comment on above: Note: LDL Guidelines :<100 Rlofhdzcu256-954 Near to/above Ehgzweqrz195-400 Borderline>159 UndesirableDirect (measured) LDL and calculated LDL are not interchangeable tests.Responsible Observer: EMETERIO PENALOZA (2347) Cholesterol,VLDL NOT REPORTED mg/dL (1-30) [facility] Work Phone: Cholesterol.total/Cho lesterol in HDL [Mass ratio] 3.5 {ratio} (<5) [facility] Work Phone: Comment on above: Note: Responsible Ob bistro server: EMETERIO PENALOZA (7028) CirrhM Patient Score 0 [facility] Work Phone: Comment on above: Note: Responsible Ob bistro server: [facility] (0603) Cocaine, Serum/Plas Negative (Cutoff 20) [facility] Work Phone: Comment on above: Note: Responsible Ob bistro server: [facility] (0603) Comment See Note [facility] Work Phone: Comment on above: Note: (NOTE)INTERPRE [...] forensic use.Test developed and characteristics determined by [facility]. See Compliance Statement B: [employer]/CSPerformed By: [employer] [place] [address] [id number] Director: Terese Muniz MDResponsible Observer: VALENTIN MODI (06) EER Fibro Rpt See Note [facility] Work Phone: Comment on above: Note: (NOTE)Access A [facility] Enhanced Report using either link below:-Direct access: [email or web address] Username, Password: [email or web address]: [email or web address]: [email or web address] Observer: LAB IRAN (06) Fibro Interpretation See Report [facility] Work Phone: Comment on above: Note: (NOTE)[17][16] INTERPRETIVE INFORMATION: Fibrometer InterpretationCalculations for the final report are based on accurate data forage, gender, and platelet count. If any of this information needsto be corrected, please contact [employer] to request arecalculation. Client Services may be contacted at .The [employer] FibroMeter profile serves as a surrogate marker [...] instrument/reagent combinations. Test developedand characteristics determined by [facility] [employer]. SeeCompliance Statement B: [employer]/CSPerformed By: [employer] [place] [address] [id number] Director: Terese Muniz, MDResponsible Observer: VALENTIN MODI (06) Fibro Metavir Class SEE NOTE [facility] Work Phone: Comment on above: Note: [...] of F4, but F3 is possibleResponsible Observer: LAB [facility] (0603) FibroM Patient Score 0.19 [facility] Work Phone: Comment on above: Note: Responsible Ob bistro server: [facility] (0603) GFR, Amer >60 mL/min (>60) [facility] Work Phone: Comment on above: Note: Responsible Ob bistro server: EMETERIO PENALOZA (6855) GFR,non Amer >60 mL/min (>60) [facility] Work Phone: Comment on above: Note: Responsible Ob bistro server: EMETERIO PENALOZA (3578) GGT, Fibro 26 U/L (7-51) [facility] Work Phone: Comment on above: Note: Responsible Ob bistro server: LAB [facility] (0603) HCV Genotype, PCR 2b [facility] Work Phone: Comment on above: Note: (NOTE)INTERPRE TIVE INFORMATION: Hepatitis C GenotypingHepatitis C Viral RNA is tested using reverse transcriptionpolymerase chain reaction (RT-PCR) to amplify a specific portionof the 5' untranslated region (5' UTR) of the viral genome. Theamplified nucleic acid is sequenced bi-directionally usingdye-terminator chemistry ([employer]). Sequencing data is compared to adatabase of [...] Type 1.Test developed and characteristics determined by [facility]. See Compliance Statement B: [employer]/CSPerformed By: [employer] [place] [address] [id number] Director: Terese Muniz MDResponsible Observer: LAB [facility] (602) HCV RNA,Quant,PCR See Note [facility] Work Phone: Comment on above: Note: Specimen Descr iption .PLASMASpecial Requests NOT REPORTEDDirect Exam HCV RNA DETECTED [id number] IU/ML (6.94 LOG IU/ML) This test is [...] DepartmentReport Status FINAL 05/19/2020Responsible Observer: OSITO ARNOLD (4378) Hep B Surf Ab <3.50 mIU/mL (<10) [facility] Work Phone: Comment on above: Note: REFERENCE RANG E:<10.0 NON-REACTIVE/NOT IMMUNE>=10.0 REACTIVE/IMMUNEResponsible Observer: CEEV AUTOFILE (1607) InflaM Metavir Class A1/A2 [facility] Work Phone: Comment on above: Note: (NOTE)INTERPRE TIVE INFORMATION: InflaMeter Metavir ClassificationInflaMeter (activity score) commentsA0/A1 Equal probability between A0 and A1A1/A2 Equal probability between A1 and A2A2/A3 Equal probability between A2 and U3Zcnwptsjmvb Observer: LAB RIAN (06) InflaM Patient Score 0.28 [facility] Work Phone: Comment on above: Note: Responsible Ob bistro server: [facility] (0603) M.dioxyamphetamine <20 ng/mL [facility] Work Phone: Comment on above: Note: Responsible Ob bistro server: [facility] (06) M.dioxyethylamphet <20 ng/mL [facility] Work Phone: Comment on above: Note: (NOTE)Performe d By: [employer] [place] [address] [id number] Director: DAMON Leeespkit Observer: LAB ALEJANDRO (06) M.dioxymethylamphet <20 ng/mL [facility] Work Phone: Comment on above: Note: Responsible Ob bistro server: LAB [facility] (06) Methadone, S/P Negative (Cutoff 25) [facility] Work Phone: Comment on above: Note: Responsible Ob bistro server: [facility] (06) Methamphetamine 462 ng/mL [facility] Work Phone: Comment on above: Note: (NOTE)Consiste nt with use of a drug containing methamphetamine.Methamphetamine is metabolized to amphetamine. Amphetamine andmethamphetamine exist in d- and l-isomeric forms. These forms arenot distinguished by this test. Isomeric separation is availableseparately for an additional charge.Responsible Observer: LAB [employer] (06) Methamphetamine,S/P Positive (Cutoff 20) [facility] Work Phone: Comment on above: Note: (NOTE)If the s creen is positive, then confirmation by mass spectrometrywill be added. Additional charges will apply.Unconfirmed positive may be useful for medical purposes, but doesnot meet forensic standards.Responsible Observer: [facility] (06) Opiates, Serum/Plas Negative (Cutoff 20) [facility] Work Phone: Comment on above: Note: Responsible Ob bistro server: [facility] (0603) Oxycodone, S/P Negative (Cutoff 20) [facility] Work Phone: Comment on above: Note: Responsible Ob bistro server: [facility] (0603) Performing Lab: see note [facility] Work Phone: Comment on above: Note: [facility] [address] [facility] [address] Note: [facility] [address] [facility] [address] Note: [facility] [address] [facility] [address] PYW - [facility] [address] [facility] [address] Phencyclidine, S/P Negative (Cutoff 10) [facility] Work Phone: Comment on above: Note: Responsible Ob bistro server: [facility] (06) Prothrombin Index 103 % (90-120) [facility] Work Phone: Comment on above: Note: Responsible Ob bistro server: [facility] (0603) Reported Physicians See Note [facility] Work Phone: Comment on above: Note: Reported Physi cians:Ordering: JasonEscobarAttending: Neli GomezieReferring: Escobar Gomez THC, Serum/Plasma Positive (Cutoff 20) [facility] Work Phone: Comment on above: Note: (NOTE)If the s creen is positive, then confirmation by mass spectrometrywill be added. Additional charges will apply.Unconfirmed positive may be useful for medical purposes, but doesnot meet forensic standards.Responsible Observer: [facility] (0603) Thyroid Stim. Horm. 0.93 mIU/L (0.30-5.00) [facility] Work Phone: Comment on above: Note: Responsible Ob bistro server: EEMTERIO PENALOZA (5444) Triglyceride,Fasting 287 mg/dL High (<150) [facility] Work Phone: Comment on above: Note: Triglyceride G uidelines:<150 Taffmqwvj151-366 Tqycufxuyu808-138 High>499 Very highBased on AHA Guidelines for fasting triglyceride, May 2012.Responsible Observer: EMETERIO PENALOZA (2705) PTon 05-17-2020 INR Coag (PPP) [Relative time] 1.0 {INR} Normal [facility] Comment on above: Result Comment: Therapeutic Range: Moderate Anticoagulant Intensity: INR = 2.0-3.0 High Anticoagulant Intensity: INR = 2.5-3.5 Performed By: #### C DP, CP, LIPR, TSHX, TREP, HIVCMB, HSVPR #### [facility] [address] [place] [address] [phone] Special Service Representative: Satya Valdez MD #### AHCGEN #### [facility] [address] [place], [place] [phone] Special Service Representative: Remi Harman MD PT Coag (PPP) [Time] 10.2 s Normal 9.0-12.0 [facility] Comment on above: Performed By: #### C DP, CP, LIPR, TSHX, TREP, HIVCMB, HSVPR #### [facility] [address] [place] [address] [phone] Special Service Representative: Satya Valdez MD #### AHCGEN #### [facility] [address] [place], [place] [phone] Special Service Representative: Remi Harman MD CT ABDOMEN PELVIS W IV CONTR AST Additional Contrast? Oralon 01-22-2020 1. No acute intra-abdominal abnormality. 2. No acute intrapelvic abnormality. [facility], [place] EXAMINATION: CT OF T ABDOMEN AND [...] pelvic masses or fluid collections are seen. Peritoneum/Retroperitone um: The abdominal aorta is not aneurysmal. No retroperitoneal or mesenteric lymphadenopathy is seen. Bones/Soft Tissues: No acute bony abnormalities are noted. [place], [place], [facility] Incoming Radiant Results From [employer] - 01/22/2020 5:08 PM EDT EXAMINATION: CT [...] pelvic masses or fluid collections are seen. Peritoneum/Retroperitone um: The abdominal aorta is not aneurysmal. No retroperitoneal or mesenteric lymphadenopathy is seen. Bones/Soft Tissues: No acute bony abnormalities are noted. IMPRESSION: 1. No acute intra-abdominal abnormality. 2. No acute intrapelvic abnormality. [place], [place] HCV Genotype, PCRon 06-01-20 19 HCV Genotype, PCR 2b Normal [facility] Comment on above: Result Comment: (NOT E) INTERPRETIVE INFORMATION: Hepatitis C Genotyping Hepatitis C Viral RNA is tested using reverse civil preparedness training officer polymerase chain reaction (RT-PCR) to amplify a specific portion of the 5' untranslated region (5' UTR) of the viral genome. The amplified nucleic acid is sequenced bi-directionally using dye-terminator chemistry ([employer]). Sequencing data is compared to a database [...] 1. Test developed and characteristics determined by [employer]. See Compliance Statement B: [employer]/ Performed by [employer], [address] [place] [id number] [email or web address], Remi Harman MD, Lab. Director Performed By: #### C DP, CP, LIPR, TSHX, TREP, HIVCMB, HSVPR #### [facility] [address] [address] Special Service Representative: Satya Valdez MD #### [facility] #### [employer] [address] [place] [address] Special Service Representative: Remi Harman MD HCV RNA,Quant,PCRon 05-29-20 19 HCV RNA,Quant,PCR Specimen Description .PLASMA Special Requests NOT REPORTED Direct Exam HCV RNA DETECTED [id number] IU/ML (6.49 LOG IU/ML) This test is [...] appropriate Health Department Report Status FINAL 05/29/2019 [facility] Comment on above: Performed By: #### C DP, CP, LIPR, TSHX, TREP, HIVCMB, HSVPR #### [facility] [address] [place] [address] Special Service Representative: Satya Valdez MD #### AHCGEN #### [address] [address] Special Service Representative: Remi Harman MD Herpes Profileon 05-28-2019 Herpes Type I, IgG 6.81 High <0.91 [facility] Comment on above: Result Comment: Reference Range: <=0.90 Negative 0.91-1.09 Equivocal >=1.10 Positive Performed By: #### C DP, CP, LIPR, TSHX, TREP, HIVCMB, HSVPR #### [place] [address] Special Service Representative: Satya Valdez MD #### AHCGEN #### [address] [address] Special Service Representative: Remi Harman MD Herpes Type I/II,IgM 1.05 High <0.91 [facility] Comment on above: Result Comment: Reference [...] CP, LIPR, TSHX, TREP, HIVCMB, HSVPR #### [address] [address] Special Service Representative: Satya Valdez MD #### AHCGEN #### [address] [address] Special Service Representative: Remi Harman MD Herpes Type II, IgG 0.76 Normal <0.91 [facility] Comment on above: Result Comment: Reference Range: <=0.90 Negative 0.91-1.09 Equivocal >=1.10 Positive Performed By: #### C DP, CP, LIPR, TSHX, TREP, HIVCMB, HSVPR #### [address] [address] Special Service Representative: Satya Valdez MD #### AHCGEN #### [facility] [address] [place] [address] Special Service Representative: Remi Harman MD CBC with Diffon 05-27-2019 Abs. Basophil 0.05 k/uL Normal 0.00-0.20 [facility] Comment on above: Performed By: #### C DP, CP, LIPR, TSHX, TREP, HIVCMB, HSVPR #### [address] [address] Special Service Representative: Satya Valdez MD #### AHCGEN #### [facility] [address] [place] [address] Special Service Representative: Remi Harman MD Abs.Imm.Granulocyte <0.03 Normal 0.00-0.30 [facility] Comment on above: Performed By: #### C DP, CP, LIPR, TSHX, TREP, HIVCMB, HSVPR #### [address] [address] Special Service Representative: Satya Valdez MD #### AHCGEN #### [facility] [address] [place] [address] Special Service Representative: Remi Harman MD Abs.Neutrophil (Seg) 3.47 k/uL Normal 1.50-8.10 [facility] Comment on above: Performed By: #### C DP, CP, LIPR, TSHX, TREP, HIVCMB, HSVPR #### [address] [address] Special Service Representative: Satya Valdez MD #### AHCGEN #### [facility] [address] [place], [place] [phone] Special Service Representative: Remi Harman MD Basophils/100 WBC (Bld) 1 % Normal 0-2 [facility] Comment on above: Performed By: #### C DP, CP, LIPR, TSHX, TREP, HIVCMB, HSVPR #### [address] [address] Special Service Representative: Satya Valdez MD #### AHCGEN #### [facility] [address] [place], [place] [phone] Special Service Representative: Remi Harman MD Eosinophils (Bld) [#/Vol] 0.25 10*3/uL Normal 0.00-0.44 [facility] Comment on above: Performed By: #### C DP, CP, LIPR, TSHX, TREP, HIVCMB, HSVPR #### [place] [address] Special Service Representative: Satya Valdez MD #### AHCGEN #### [facility] [address] [place] [phone] Special Service Representative: Remi Harman MD Eosinophils/100 WBC (Bld) 4 % Normal 1-4 [facility] Comment on above: Performed By: #### C DP, CP, LIPR, TSHX, TREP, HIVCMB, HSVPR #### [address] [address] Special Service Representative: Satya Valdez MD #### AHCGEN #### [facility] [address] [place], [place] [phone] Special Service Representative: Remi Harman MD Erythrocyte distribution width (RBC) [Ratio] 12.4 % Normal 11.8-14.4 [facility] Comment on above: Performed By: #### C DP, CP, LIPR, TSHX, TREP, HIVCMB, HSVPR #### [address] [address] Special Service Representative: Satya Valdez MD #### AHCGEN #### [facility] [address] [place], [place] [phone] Special Service Representative: Remi Harman MD Hematocrit (Bld) [Volume fraction] 48.5 % Normal 40.7-50.3 [facility] Comment on above: Performed By: #### C DP, CP, LIPR, TSHX, TREP, HIVCMB, HSVPR #### [facility] [address] [place] [address] Special Service Representative: Satya Valdez MD #### AHCGEN #### [facility] [address], [place] [phone] Special Service Representative: Remi Harman MD Hemoglobin (Bld) [Mass/Vol] 16.0 g/dL Normal 13.0-17.0 [facility] Comment on above: Performed By: #### C DP, CP, LIPR, TSHX, TREP, HIVCMB, HSVPR #### [place] [address] Special Service Representative: Satya Valdez MD #### AHCGEN #### [facility] [address] [place], [place] [phone] Special Service Representative: Remi Harman MD Immature granulocytes (Bld) [#/Vol] 0 % Normal 0 [facility] Comment on above: Performed By: #### C DP, CP, LIPR, TSHX, TREP, HIVCMB, HSVPR #### [address] [address] Special Service Representative: Satya Valdez MD #### AHCGEN #### [facility] [address] [place], [place] [phone] Special Service Representative: Remi Harman MD Lymphocytes (Bld) [#/Vol] 2.73 10*3/uL Normal 1.10-3.70 [facility] Comment on above: Performed By: #### C DP, CP, LIPR, TSHX, TREP, HIVCMB, HSVPR #### [address] [address] Special Service Representative: Satya Valdez MD #### AHCGEN #### [address] [phone] Special Service Representative: Remi Harman MD Lymphocytes/100 WBC (Bld) 38 % Normal 24-43 [facility] Comment on above: Performed By: #### C DP, CP, LIPR, TSHX, TREP, HIVCMB, HSVPR #### [place] [address] Special Service Representative: Satya Valdez MD #### [place] #### [address] [phone] Special Service Representative: Remi Harman MD MCH (RBC) [Entitic mass] 30.5 pg Normal 25.2-33.5 [facility] Comment on above: Performed By: #### C DP, CP, LIPR, TSHX, TREP, HIVCMB, HSVPR #### [place] [address] Special Service Representative: Satya Valdez MD #### AHCGEN #### [address] [phone] Special Service Representative: Remi Harman MD MCHC (RBC) [Mass/Vol] 33.0 g/dL Normal 28.4-34.[address] [facility] Comment on above: Performed By: #### C DP, CP, LIPR, TSHX, TREP, HIVCMB, HSVPR #### [address] [address] Special Service Representative: Satya Valdez MD #### AHCGEN #### [facility] [address], [place] [phone] Special Service Representative: Remi Harman MD MCV (RBC) [Entitic vol] 92.4 fL Normal 82.6-102.9 [facility] Comment on above: Performed By: #### C DP, CP, LIPR, TSHX, TREP, HIVCMB, HSVPR #### [address] [address] Special Service Representative: Satya Valdez MD #### AHCGEN #### [facility] [address], [place] [phone] Special Service Representative: Remi Harman MD Monocytes (Bld) [#/Vol] 0.61 10*3/uL Normal 0.10-1.20 [facility] Comment on above: Performed By: #### C DP, CP, LIPR, TSHX, TREP, HIVCMB, HSVPR #### [address] [address] Special Service Representative: Satya Valdez MD #### AHCGEN #### [facility] [address], [place] [phone] Special Service Representative: Remi Harman MD Monocytes/100 WBC (Bld) 9 % Normal 3-12 [facility] Comment on above: Performed By: #### C DP, CP, LIPR, TSHX, TREP, HIVCMB, HSVPR #### [address] [address] Special Service Representative: Satya Valdez MD #### AHCGEN #### [facility] [address], [place] [phone] Special Service Representative: Remi Harman MD Neutrophil (Seg) 48 % Normal 36-[address] [facility] Comment on above: Performed By: #### C DP, CP, LIPR, TSHX, TREP, HIVCMB, HSVPR #### [address] [address] Special Service Representative: Satya Valdez MD #### AHCGEN #### [facility] [address] [place] [address] Special Service Representative: Remi Harman MD NRBC Automated 0.0 per 100 WBC Normal 0.0 [facility] Comment on above: Performed By: #### C DP, CP, LIPR, TSHX, TREP, HIVCMB, HSVPR #### [address] [address] Special Service Representative: Satya Valdez MD #### AHCGEN #### [facility] [address] [place], [place] [phone] Special Service Representative: Remi Harman MD Platelet mean volume (Bld) [Entitic vol] 9.9 fL Normal 8.1-13.5 [facility] Comment on above: Performed By: #### C DP, CP, LIPR, TSHX, TREP, HIVCMB, HSVPR #### [address] [address] Special Service Representative: Satya Valdez MD #### AHCGEN #### [facility] [address] [place] [address] Special Service Representative: Remi Harman MD Platelets (Bld) [#/Vol] 370 10*3/uL Normal 138-453 [facility] Comment on above: Performed By: #### C DP, CP, LIPR, TSHX, TREP, HIVCMB, HSVPR #### [address] [address] Special Service Representative: Satya Valdez MD #### AHCGEN #### [facility] [address] [place] [address] Special Service Representative: Remi Harman MD RBC (Bld) [#/Vol] 5.25 10*6/uL Normal 4.21-5.77 [facility] Comment on above: Performed By: #### C DP, CP, LIPR, TSHX, TREP, HIVCMB, HSVPR #### [address] [address] Special Service Representative: Satya Valdez MD #### AHCGEN #### [facility] [address] [place] [address] Special Service Representative: Remi Harman MD WBC (Bld) [#/Vol] 7.1 10*3/uL Normal 3.5-11.3 [facility] Comment on above: Performed By: #### C DP, CP, LIPR, TSHX, TREP, HIVCMB, HSVPR #### [address] [address] Special Service Representative: Satya Valdez MD #### AHCGEN #### [address] [address] Special Service Representative: Remi Harman MD Auto Diff Performed NOT REPORTED Normal [facility] Comment on above: Performed By: #### C DP, CP, LIPR, TSHX, TREP, HIVCMB, HSVPR #### [address] [address] Special Service Representative: Satya Valdez MD #### AHCGEN #### [facility] [address] [place] [address] Special Service Representative: Remi Harman MD Platelets (Bld) [#/Vol] NOT REPORTED Normal [facility] Comment on above: Performed By: #### C DP, CP, LIPR, TSHX, TREP, HIVCMB, HSVPR #### [address] [address] Special Service Representative: Satya Valdez MD #### AHCGEN #### [facility] [address] [place] [address] Special Service Representative: Remi Harman MD RBC morphology finding Nom (Bld) NOT REPORTED Normal [facility] Comment on above: Performed By: #### C DP, CP, LIPR, TSHX, TREP, HIVCMB, HSVPR #### [address] [phone] Special Service Representative: Satya Valdez MD #### AHCGEN #### [facility] [address] [place] [address] Special Service Representative: Remi Harman MD WBC Morphology NOT REPORTED Normal [facility] Comment on above: Performed By: #### C DP, CP, LIPR, TSHX, TREP, HIVCMB, HSVPR #### [address] [phone] Special Service Representative: Satya Valdez MD #### AHCGEN #### [facility] [address] [place] [address] Special Service Representative: Remi Harman MD Chlamydia/GC DNA, Uron 05-27 Chlamydia Probe, Ur Negative Normal NEG [facility] Comment on above: Result Comment: CHLA MYDIA [...] Performed By: #### U CGP, TRCMOL #### [address] [phone] Special Service Representative: Satya Valdez MD Gonorrhea Probe, Ur Negative Normal NEG [facility] Comment on above: Result Comment: NEIS SERIA [...] Performed By: #### U CGP, TRCMOL #### [address] [phone] Special Service Representative: Satya Valdez MD Comp Metabolic Profon 2018 (cont.) Normal [facility] Comment on above: Result Comment: Aver age GFR for 30-39 years old: 107 mL/min/1.73sq m Chronic Kidney Disease: <60 mL/min/1.73sq m Kidney failure: <15 mL/min/1.73sq m eGFR calculated using average adult body mass. Additional eGFR calculator available at: http://www.[employer]lovemeshare.me/multiple_crcl_2012.htm Performed By: #### C DP, CP, LIPR, TSHX, TREP, HIVCMB, HSVPR #### [address] [address] Special Service Representative: Satya Valdez MD #### AHIshmaelGEN #### [address] [address] Special Service Representative: Remi Harman MD Albumin [Mass/Vol] 4.4 g/dL Normal 3.5-5.2 [facility] Comment on above: Performed By: #### C DP, CP, LIPR, TSHX, TREP, HIVCMB, HSVPR #### [address] [phone] Special Service Representative: Satya Valdez MD #### AHCGEN #### [facility] [address] [place] [address] Special Service Representative: Remi Harman MD Albumin/Globulin [Mass ratio] 1.5 {ratio} Normal 1.0-2.5 [facility] Comment on above: Performed By: #### C DP, CP, LIPR, TSHX, TREP, HIVCMB, HSVPR #### [address] [address] Special Service Representative: Satya Valdez MD #### AHCGEN #### [facility] [address] [place] [address] Special Service Representative: Remi Harman MD Alkaline Phos 71 U/L Normal 40-129 [facility] Comment on above: Performed By: #### C DP, CP, LIPR, TSHX, TREP, HIVCMB, HSVPR #### [address] [address] Special Service Representative: Satya Valdez MD #### AHCGEN #### [address] [phone] Special Service Representative: Remi Harman MD ALT [Catalytic activity/Vol] 43 U/L High 5-41 [facility] Comment on above: Performed By: #### C DP, CP, LIPR, TSHX, TREP, HIVCMB, HSVPR #### [address] [address] Special Service Representative: Satya Valdez MD #### AHCGEN #### [address] [phone] Special Service Representative: Remi Harman MD Anion gap [Moles/Vol] 12 mmol/L Normal 9-[address] [facility] Comment on above: Performed By: #### C DP, CP, LIPR, TSHX, TREP, HIVCMB, HSVPR #### [address] [address] Special Service Representative: Satya Valdez MD #### AHCGEN #### [facility] [address] [place] [phone] Special Service Representative: Remi Harman MD AST [Catalytic activity/Vol] 37 U/L Normal <40 [facility] Comment on above: Performed By: #### C DP, CP, LIPR, TSHX, TREP, HIVCMB, HSVPR #### [address] [address] Special Service Representative: Satya Valdez MD #### AHCGEN #### [address] [address] Special Service Representative: Remi Harman MD Bilirubin Ql (U) 0.38 mg/dL Normal 0.3-1.[address] [facility] Comment on above: Performed By: #### C DP, CP, LIPR, TSHX, TREP, HIVCMB, HSVPR #### [address] [address] Special Service Representative: Satya Valdez MD #### AHCGEN #### [address] [address] Special Service Representative: Remi Harman MD Calcium [Mass/Vol] 9.7 mg/dL Normal 8.6-10.4 [facility] Comment on above: Performed By: #### C DP, CP, LIPR, TSHX, TREP, HIVCMB, HSVPR #### [address] [address] Special Service Representative: Satya Valdez MD #### AHCGEN #### [address] [phone] Special Service Representative: Remi Harman MD Chloride [Moles/Vol] 100 mmol/L Normal 98-107 [facility] Comment on above: Performed By: #### C DP, CP, LIPR, TSHX, TREP, HIVCMB, HSVPR #### [address] [address] Special Service Representative: Satya Valdez MD #### AHCGEN #### [facility] [address] [place] [address] Special Service Representative: Remi Harman MD CO2 [Moles/Vol] 27 mmol/L Normal 20-31 [facility] Comment on above: Performed By: #### C DP, CP, LIPR, TSHX, TREP, HIVCMB, HSVPR #### [facility] [address] [place] [address] Special Service Representative: Satya Valdez MD #### AHCGEN #### [facility] [address] [place] [address] Special Service Representative: Remi Harman MD Creatinine [Mass/Vol] 1.28 mg/dL High 0.70-1.[address] [facility] Comment on above: Performed By: #### C DP, CP, LIPR, TSHX, TREP, HIVCMB, HSVPR #### [address] [address] Special Service Representative: Satya Valdez MD #### AHCGEN #### [facility] [address] [place] [address] Special Service Representative: Remi Harman MD GFR, Amer >60 Normal >[address] [facility] Comment on above: Performed By: #### C DP, CP, LIPR, TSHX, TREP, HIVCMB, HSVPR #### [address] [address] Special Service Representative: Satya Valdez MD #### AHCGEN #### [facility] [address] [place] [address] Special Service Representative: Remi Harman MD GFR,non Amer >60 Normal >60 [facility] Comment on above: Performed By: #### C DP, CP, LIPR, TSHX, TREP, HIVCMB, HSVPR #### [facility] [address] [place] [address] Special Service Representative: Satya Valdez MD #### AHCGEN #### [facility] [address], [place] [phone] Special Service Representative: Remi Harman MD Glucose [Mass/Vol] 77 mg/dL Normal 70-99 [facility] Comment on above: Performed By: #### C DP, CP, LIPR, TSHX, TREP, HIVCMB, HSVPR #### [facility] [address] [place] [address] Special Service Representative: Satya Valdez MD #### AHCGEN #### [facility] [address] [place] [phone] Special Service Representative: Remi Harman MD Potassium [Moles/Vol] 3.9 mmol/L Normal 3.7-5.[address] [facility] Comment on above: Performed By: #### C DP, CP, LIPR, TSHX, TREP, HIVCMB, HSVPR #### [address] [address] Special Service Representative: Satya Valdez MD #### AHCGEN #### [facility] [address] [place], [place] [phone] Special Service Representative: Remi Harman MD Protein [Mass/Vol] 7.3 g/dL Normal 6.4-8.3 [facility] Comment on above: Performed By: #### C DP, CP, LIPR, TSHX, TREP, HIVCMB, HSVPR #### [facility] [address] [place] [address] Special Service Representative: Satya Valdez MD #### AHCGEN #### [facility] [address] [place] [address] Special Service Representative: Remi Harman MD Sodium [Moles/Vol] 139 mmol/L Normal 135-144 [facility] Comment on above: Performed By: #### C DP, CP, LIPR, TSHX, TREP, HIVCMB, HSVPR #### [address] [address] Special Service Representative: Satya Valdez MD #### AHCGEN #### [facility] [address] [place] [address] Special Service Representative: Remi Harman MD Urea nitrogen [Mass/Vol] 9 mg/dL Normal 6-20 [facility] Comment on above: Performed By: #### C DP, CP, LIPR, TSHX, TREP, HIVCMB, HSVPR #### [address] [address] Special Service Representative: Satya Valdez MD #### AHCGEN #### [address] [phone] Special Service Representative: Remi Harman MD BUN/CRE Ratio NOT REPORTED Normal -20 [facility] Comment on above: Performed By: #### C DP, CP, LIPR, TSHX, TREP, HIVCMB, HSVPR #### [address] [address] Special Service Representative: Satya Valdez MD #### AHCGEN #### [address] [phone] Special Service Representative: Remi Harman MD Staging: NOT REPORTED Normal [facility] Comment on above: Performed By: #### C DP, CP, LIPR, TSHX, TREP, HIVCMB, HSVPR #### [address] [address] Special Service Representative: Satya Valdez MD #### AHCGEN #### [facility] [address] [place] [phone] Special Service Representative: Reim Harman MD Comprehensive Metabolic Pane nando 05-27-2019 Albumin [Mass/Vol] 4.4 g/dL 3.5 - 5.2 g/dL [place], [place] Albumin/Globulin [Mass ratio] 1.5 {ratio} [place] ALP [Catalytic activity/Vol] 71 U/L 40 - 129 U/L [place] ALT [Catalytic activity/Vol] 43 U/L High 5 - 41 U/L [place] Anion gap [Moles/Vol] 12 mmol/L 9 - 17 mmol/L [place] AST [Catalytic activity/Vol] 37 U/L <40 [place] Bilirubin Ql (U) 0.38 mg/dL 0.3 - 1.2 mg/dL [place] Bun/Cre Ratio NOT REPORTED [place], [place] Calcium [Mass/Vol] 9.7 mg/dL 8.6 - 10. 4 mg/dL [place] Chloride [Moles/Vol] 100 mmol/L 98 - 10 7 mmol/L [place] CO2 [Moles/Vol] 27 mmol/L 20 - 31 mmol/L [place] Creatinine [Mass/Vol] 1.28 mg/dL High 0.7 - 1.2 mg/dL [place] GFR >60 >60 mL/min [place], [place] GFR Non- >60 >60 mL/min [place] GFR/1.73 sq M predicted among non-blacks MDRD (S/P/Bld) [Vol rate/Area] NOT REPORTED [place] GFR/1.73 sq M predicted among non-blacks MDRD (S/P/Bld) [Vol rate/Area] [place] Comment on above: Average GFR for 30-3 9 years old: 107 mL/min/1.73sq m Chronic Kidney Disease: <60 mL/min/1.73sq m Kidney failure: <15 mL/min/1.73sq m eGFR calculated using average adult body mass. Additional eGFR calculator available at: http://www.[employer] [place]/multiple_crcl_2012.htm Glucose [Mass/Vol] 77 mg/dL 70 - 99 mg/dL [place] Potassium [Moles/Vol] 3.9 mmol/L 3.7 - 5.3 mmol/L [place] Protein [Mass/Vol] 7.3 g/dL 6.4 - 8.3 g/dL [place] Sodium [Moles/Vol] 139 mmol/L 135 - 144 mmol/L [place] Urea nitrogen [Mass/Vol] 9 mg/dL 6 - 20 mg/dL [place] HCV Genotype, PCRon 05-27-20 19 HCV Viral Load NOT REPORTED Normal [facility] Comment on above: Performed By: #### C DP, CP, LIPR, TSHX, TREP, HIVCMB, HSVPR #### [facility] [address] [place] [address] [phone] Special Service Representative: Satya Valdez MD #### AHCGEN #### [facility] [address] [place] [address] Special Service Representative: Remi Harman MD HIV Ag/Abon 05-27-2019 HIV Ag/Ab NONREACTIVE Normal NR [facility] Comment on above: Result Comment: No l aboratory evidence of HIV infection. If acute HIV infection is suspected, consider testing for HIV-1 RNA. Performed By: #### C DP, CP, LIPR, TSHX, TREP, HIVCMB, HSVPR #### [facility] [address] [place] [address] [phone] Special Service Representative: Satya Valdez MD #### AHCGEN #### [facility] [address] [place] [address] Special Service Representative: Remi Harman MD Lipid Panelon 05-27-2019 Cholesterol [Mass/Vol] 233 mg/dL High <200 [place] Comment on above: Cholesterol Guidelines: <200 Desirable 200-240 Borderline >240 Undesirable Cholesterol in HDL [Mass/Vol] 60 mg/dL >40 [place] Comment on above: HDL Guidelines: <40 Undesirable 40-59 Borderline >59 Desirable Cholesterol in LDL [Mass/Vol] 145 mg/dL High 0 - 130 mg/dL [place] Comment on above: LDL Guidelines: <100 Desirable 100-129 Near to/above Desirable 130-159 Borderline >159 Undesirable Direct (measured) LDL and calculated LDL are not interchangeable tests. Cholesterol in VLDL [Mass/Vol] NOT REPORTED 1 - 30 mg/dL [place] Cholesterol.total/Cho lesterol in HDL [Mass ratio] 3.9 {ratio} <5 [place] Triglyceride [Mass/Vol] 138 mg/dL <150 [place] Comment on above: Triglyceride Guidelines: <150 Desirable 150-199 Borderline 200-499 High >499 Very high Based on AHA Guidelines for fasting triglyceride, May 2012. Lipid Profileon 05-27-2019 Cholesterol [Mass/Vol] 233 mg/dL High <200 [facility] Comment on above: Result Comment: Cholesterol Guidelines: <200 Desirable 200-240 Borderline >240 Undesirable Performed By: #### C DP, CP, LIPR, TSHX, TREP, HIVCMB, HSVPR #### [facility] [facility] [address] [place] [address] [phone] Special Service Representative: Satya Valdez MD #### AHCGEN #### [facility] [address], [place] [phone] Special Service Representative: Remi Harman MD Cholesterol in HDL [Mass/Vol] 60 mg/dL Normal >40 [facility] Comment on above: Result Comment: HDL Guidelines: <40 Undesirable 40-59 Borderline >59 Desirable Performed By: #### C DP, CP, LIPR, TSHX, TREP, HIVCMB, HSVPR #### [facility] [address] [place] [phone] Special Service Representative: Satya Valdez MD #### AHCGEN #### [facility] [address], [place] [phone] Special Service Representative: Remi Harman MD Cholesterol in LDL [Mass/Vol] 145 mg/dL High 0-130 [facility] Comment on above: Result Comment: LDL Guidelines: <100 Desirable 100-129 Near to/above Desirable 130-159 Borderline >159 Undesirable Direct (measured) LDL and calculated LDL are not interchangeable tests. Performed By: #### C DP, CP, LIPR, TSHX, TREP, HIVCMB, HSVPR #### [facility] [place] [address] Special Service Representative: Satya Valdez MD #### AHCGEN #### [facility] [address] [place] [address] Special Service Representative: Remi Harman MD Cholesterol.total/Cho lesterol in HDL [Mass ratio] 3.9 {ratio} Normal <5 [facility] Comment on above: Performed By: #### C DP, CP, LIPR, TSHX, TREP, HIVCMB, HSVPR #### [facility] [address] [place] [phone] Special Service Representative: Satya Valdez MD #### AHCGEN #### [facility] [address], [place] [phone] Special Service Representative: Remi Harman MD Triglyceride [Mass/Vol] 138 mg/dL Normal <150 [facility] Comment on above: Result Comment: Triglyceride Guidelines: <150 Desirable 150-199 Borderline 200-499 High >499 Very high Based on AHA Guidelines for fasting triglyceride, May 2012. Performed By: #### C DP, CP, LIPR, TSHX, TREP, HIVCMB, HSVPR #### [facility] [address] [place] [phone] Special Service Representative: Satya Valdez MD #### AHCGEN #### [facility] [address] [place] [address] Special Service Representative: Remi Harman MD Cholesterol in VLDL [Mass/Vol] NOT REPORTED Normal 1-30 [facility] Comment on above: Performed By: #### C DP, CP, LIPR, TSHX, TREP, HIVCMB, HSVPR #### [facility] [address] [place] [address] [phone] Special Service Representative: Satya Valdez MD #### AHCGEN #### [facility] [address], [place] [phone] Special Service Representative: Remi Harman MD Otheron 05-27-2019 Interpretation and review of laboratory results Abnormal [facility], [place] T.pallidum Ab Screenon 05-27 T.pallidum Ab Screen NONREACTIVE Normal NR [facility] Comment on above: Result Comment: T. pallidum antibodies are not detected. There is no serological evidence of infection with T. pallidum (early primary syphilis cannot be excluded). Retest in 2-4 weeks if syphilis is clinically suspect. Performed By: #### C DP, CP, LIPR, TSHX, TREP, HIVCMB, HSVPR #### [address] [phone] Special Service Representative: Satya Valdez MD #### AHCGEN #### [address] [id number] Special Service Representative: Remi Harman MD TSH w/reflex to FT4on 2018 TSH Qn 2.51 m[IU]/L Normal 0.30-5.00 [facility] Comment on above: Performed By: #### C DP, CP, LIPR, TSHX, TREP, HIVCMB, HSVPR #### [address] [phone] Special Service Representative: Satya Valdez MD #### AHCGEN #### [facility] [address] [place] [address] Special Service Representative: Remi Harman MD TSH with Reflexon 05-27-2019 TSH Qn 2.51 m[IU]/L [place], [place] Trich Vag, Molecularon 05-27 Trich Vag, Molecular Negative Normal NEG [facility] Comment on above: Result Comment: T. [...] Performed By: #### U CGP, TRCMOL #### [facility] [place], [place] [phone] Special Service Representative: Satya Valdez MD Source: .URINE Normal [facility] Comment on above: Performed By: #### U CGP, TRCMOL #### [facility] [address] [place] [phone] Special Service Representative: Satya Valdez MD CBC Auto Differentialon 10-0 Basophils (Bld) [#/Vol] 0.05 10*3/uL [place], [place] Basophils/100 WBC (Bld) 1 % 0 - 2 % [place] Differential Type NOT REPORTED [place] Eosinophils (Bld) [#/Vol] 0.25 10*3/uL [place] Eosinophils/100 WBC (Bld) 4 % 1 - 4 % [place] Erythrocyte distribution width (RBC) [Ratio] 12.4 % 11.8 - 14.4 % [place] Hematocrit (Bld) [Volume fraction] 48.5 % 40.7 - 50.3 % [place] Hemoglobin (Bld) [Mass/Vol] 16.0 g/dL 13 - 17 g/dL [place] Immature granulocytes (Bld) [#/Vol] 0 % 0 [place] Immature granulocytes (Bld) [#/Vol] 10*3/uL [place] Lymphocytes (Bld) [#/Vol] 2.73 10*3/uL [place] Lymphocytes/100 WBC (Bld) 38 % 24 - 43 % [place] MCH (RBC) [Entitic mass] 30.5 pg 25.2 - 33.5 pg [place] MCHC (RBC) [Mass/Vol] 33.0 g/dL 28.4 - 34.8 g/dL [place] MCV (RBC) [Entitic vol] 92.4 fL 82.6 - 102.9 fL [place] Monocytes (Bld) [#/Vol] 0.61 10*3/uL [place] Monocytes/100 WBC (Bld) 9 % 3 - 12 % [place] Platelet mean volume (Bld) [Entitic vol] 9.9 fL 8.1 - 13.5 fL [place] Platelets (Bld) [#/Vol] NOT REPORTED [place] Platelets (Bld) [#/Vol] 370 10*3/uL [place] RBC (Bld) [#/Vol] 5.25 10*6/uL 4.21 - 5.7 7 m/uL [place] RBC morphology finding Nom (Bld) NOT REPORTED [place] Segmented neutrophils/100 WBC (Bld) 48 % 36 - 65 % [place] Segs Absolute 3.47 [place] WBC (Bld) [#/Vol] 7.1 10*3/uL [place] WBC (Bld) [#/Vol] 0.0 10*3/uL 0.0 per 10 0 WBC [place] WBC Morphology NOT REPORTED [place], [place] [facility] 05-26-2019 Cholesterol [Mass/Vol] 233 mg/dL High (<200) [facility] Work Phone: Comment on above: Note: Cholesterol Gu idelines:<200 [id number] Borderline>240 UndesirableResponsible Observer: DIANA AUTOFILE (3003) Triglyceride [Mass/Vol] 138 mg/dL (<150) [facility] Work Phone: Comment on above: Note: Triglyceride G uidelines:<150 [id number] [id number] High>499 Very highBased on AHA Guidelines for fasting triglyceride, May 2012.Responsible Observer: DIANA AUTOFILE (3003) Hematologyon 05-26-2019 Basophils/100 WBC (Bld) 1 % (0-2) [facility] Work Phone: Comment on above: Note: Responsible Ob bistro server: XNV AUTOFILE (3018) Eosinophils (Bld) [#/Vol] 0.25 10*3/uL (0.00-0.44) [facility] Work Phone: Comment on above: Note: Responsible Ob bistro server: XNV AUTOFILE (3018) Eosinophils/100 WBC (Bld) 4 % (1-4) [facility] Work Phone: Comment on above: Note: Responsible Ob bistro server: XNV AUTOFILE (3018) Hematocrit (Bld) [Volume fraction] 48.5 % (40.7-50.3) [facility] Work Phone: Comment on above: Note: Responsible Ob bistro server: XNV AUTOFILE (3018) Hemoglobin (Bld) [Mass/Vol] 16.0 g/dL (13.0-17.0) [facility] Work Phone: Comment on above: Note: Responsible Ob bistro server: XNV AUTOFILE (3018) Lymphocytes (Bld) [#/Vol] 2.73 10*3/uL (1.10-3.70) [facility] Work Phone: Comment on above: Note: Responsible Ob bistro server: XNV AUTOFILE (3018) Lymphocytes/100 WBC (Bld) 38 % (24-43) [facility] Work Phone: Comment on above: Note: Responsible Ob bistro server: XNV AUTOFILE (3018) MCH (RBC) [Entitic mass] 30.5 pg (25.2-33.5) [facility] Work Phone: Comment on above: Note: Responsible Ob bistro server: XNV AUTOFILE (3018) MCV (RBC) [Entitic vol] 92.4 fL (82.6-102.9) [facility] Work Phone: Comment on above: Note: Responsible Ob bistro server: XNV AUTOFILE (3018) Monocytes (Bld) [#/Vol] 0.61 10*3/uL (0.10-1.20) [facility] Work Phone: Comment on above: Note: Responsible Ob bistro server: XNV AUTOFILE (3018) Monocytes/100 WBC (Bld) 9 % (3-12) [facility] Work Phone: Comment on above: Note: Responsible Ob bistro server: XNV AUTOFILE (3018) Platelets (Bld) [#/Vol] NOT REPORTED [facility] Work Phone: Platelets (Bld) [#/Vol] 370 10*3/uL (138-453) [facility] Work Phone: Comment on above: Note: Responsible Ob bistro server: XNV AUTOFILE (3018) RBC (Bld) [#/Vol] 5.25 10*6/uL (4.21-5.77) [facility] Work Phone: Comment on above: Note: Responsible Ob bistro server: XNV AUTOFILE (3018) RBC morphology finding Nom (Bld) NOT REPORTED [facility] Work Phone: WBC (Bld) [#/Vol] 0.0 per_100_WBC (0.0) [facility] Work Phone: Comment on above: Note: Responsible Ob bistro server: XNV AUTOFILE (3018) WBC (Bld) [#/Vol] 7.1 10*3/uL (3.5-11.3) [facility] Work Phone: Comment on above: Note: Responsible Ob bistro server: XNV AUTOFILE (3018) Metabolic Panelon 05-26-2019 Albumin [Mass/Vol] 4.4 g/dL (3.5-5.2) [facility] Work Phone: Comment on above: Note: Responsible Ob bistro server: CEEV AUTOFILE (3003) ALT [Catalytic activity/Vol] 43 U/L High (5-41) [facility] Work Phone: Comment on above: Note: Responsible Ob bistro server: CEEV AUTOFILE (3003) Anion gap [Moles/Vol] 12 mmol/L (9-17) [facility] Work Phone: Comment on above: Note: Responsible Ob bistro server: CEEV AUTOFILE (3003) AST [Catalytic activity/Vol] 37 U/L (<40) [facility] Work Phone: Comment on above: Note: Responsible Ob bistro server: CEEV AUTOFILE (3003) Bilirubin [Mass/Vol] 0.38 mg/dL (0.3-1.2) [facility] Work Phone: Comment on above: Note: Responsible Ob bistro server: CEEV AUTOFILE (3003) Calcium [Mass/Vol] 9.7 mg/dL (8.6-10.4) [facility] Work Phone: Comment on above: Note: Responsible Ob bistro server: CEEV AUTOFILE (3003) Chloride [Moles/Vol] 100 mmol/L (98-107) [facility] Work Phone: Comment on above: Note: Responsible Ob bistro server: CEEV AUTOFILE (3003) CO2 [Moles/Vol] 27 mmol/L (20-31) [facility] Work Phone: Comment on above: Note: Responsible Ob bistro server: CEEV AUTOFILE (3003) Creatinine [Mass/Vol] 1.28 mg/dL High (0.70-1.20) [facility] Work Phone: Comment on above: Note: Responsible Ob bistro server: CEEV AUTOFILE (3003) Glucose [Mass/Vol] 77 mg/dL (70-99) [facility] Work Phone: Comment on above: Note: Responsible Ob bistro server: CEEV AUTOFILE (3003) Potassium [Moles/Vol] 3.9 mmol/L (3.7-5.3) [facility] Work Phone: Comment on above: Note: Responsible Ob bistro server: CEEV AUTOFILE (3003) Protein [Mass/Vol] 7.3 g/dL (6.4-8.3) [facility] Work Phone: Comment on above: Note: Responsible Ob bistro server: CEEV AUTOFILE (3003) Sodium [Moles/Vol] 139 mmol/L (135-144) [facility] Work Phone: Comment on above: Note: Responsible Ob bistro server: CEEV AUTOFILE (3003) Urea nitrogen [Mass/Vol] 9 mg/dL (6-20) [facility] Work Phone: Comment on above: Note: Responsible Ob bistro server: CEEV AUTOFILE (3003) Otheron 05-26-2019 Chlamydia Probe, Ur Negative (NEG) [facility] Work Phone: Comment on above: Note: CHLAMYDIA [...] by an alternative nucleic acid target.Responsible Observer: CAFORTYEIG AUTOFILE (3030) Gonorrhea Probe, Ur Negative (NEG) [facility] Work Phone: Comment on above: Note: [...] by an alternative nucleic acid target.Responsible Observer: EMMA ASCENCIO (6649) Performing Lab: see note [facility] Work Phone: Comment on above: Note: OLIVA Lyons [address] [facility] [address] Reported Physicians See Note [facility] Work Phone: Comment on above: Note: Reported Physi cians:Ordering: Escobar GomezAttending: Neli GomezieReferring: Escobar Gomez Source: .URINE [facility] Work Phone: Comment on above: Note: Responsible Ob bistro server: ZAC OKEEFE (8911) Trich Vag, Molecular Negative (NEG) [facility] Work Phone: Comment on above: [...] Observer: DANTE QURESHI (189) (cont.) See Note [facility] Work Phone: Comment on above: Note: Average GFR fo r 30-39 years old:107 mL/min/1.73sq mChronic Kidney Disease:<60 mL/min/1.73sq mKidney failure:<15 mL/min/1.73sq meGFR calculated using average adult body mass. Additional eGFR calculatoravailable at:http://www.iHigh.com/multiple_crcl_2012.htmResponsible Observer: CEEV AUTOFILE (9246) Abs. Basophil 0.05 k/uL (0.00-0.20) [facility] Work Phone: Comment on above: Note: Responsible Ob bistro server: XNV AUTOFILE (1487) Abs.Imm.Granulocyte <0.03 k/uL (0.00-0.30) [facility] Work Phone: Comment on above: Note: Responsible Ob bistro server: XNV AUTOFILE (3018) Abs.Neutrophil (Seg) 3.47 k/uL (1.50-8.10) [facility] Work Phone: Comment on above: Note: Responsible Ob bistro server: XNV AUTOFILE (3018) Albumin/Glob Ratio 1.5 (1.0-2.5) [facility] Work Phone: Comment on above: Note: Responsible Ob bistro server: CEEV AUTOFILE (3003) Alkaline Phos 71 U/L (40-129) [facility] Work Phone: Comment on above: Note: Responsible Ob bistro server: CEEV AUTOFILE (3003) Auto Diff Performed NOT REPORTED [facility] Work Phone: BUN/CRE Ratio NOT REPORTED (9-20) [facility] Work Phone: Cholesterol,HDL 60 mg/dL (>40) [facility] Work Phone: Comment on above: Note: HDL Guidelines :<40 Aodtnvzfvmu44-99 Borderline>59 DesirableResponsible Observer: CEEV AUTOFILE (3003) Cholesterol,LDL 145 mg/dL High (0-130) [facility] Work Phone: Comment on above: Note: LDL Guidelines :<100 [id number] Near to/above [id number] Borderline>159 UndesirableDirect (measured) LDL and calculated LDL are not interchangeable tests.Responsible Observer: CEEV AUTOFILE (3003) Cholesterol,VLDL NOT REPORTED mg/dL (1-30) [facility] Work Phone: Cholesterol.total/Cho lesterol in HDL [Mass ratio] 3.9 {ratio} (<5) [facility] Work Phone: Comment on above: Note: Responsible Ob bistro server: CEEV AUTOFILE (3003) Erythrocyte distribution width (RBC) [Ratio] 12.4 % (11.8-14.4) [facility] Work Phone: Comment on above: Note: Responsible Ob bistro server: XNV AUTOFILE (3018) GFR, Amer >60 mL/min (>60) [facility] Work Phone: Comment on above: Note: Responsible Ob bistro server: CEEV AUTOFILE (3003) GFR,non Amer >60 mL/min (>60) [facility] Work Phone: Comment on above: Note: Responsible Ob bistro server: CEEV AUTOFILE (3003) HCV Genotype, PCR 2b [facility] Work Phone: Comment on above: Note: (NOTE)INTERPRE TIVE INFORMATION: Hepatitis C GenotypingHepatitis C Viral RNA is tested using reverse transcriptionpolymerase chain reaction (RT-PCR) to amplify a specific portionof the 5' untranslated region (5' UTR) of the viral genome. Theamplified nucleic acid is sequenced bi-directionally usingdye-terminator chemistry ([employer]). Sequencing data is compared to adatabase of [...] Type 1.Test developed and characteristics determined by [employer]. See Compliance Statement B: 13[facility] [email or web address] by [employer],[address] [place] [address] [email or web address].[email or web address], Remi Harman MD, Lab. DirectorResponsible Observer: LAB RIAN (0603) HCV RNA,Quant,PCR See Note [facility] Work Phone: Comment on above: Note: Specimen Descr iption .PLASMASpecial Requests NOT REPORTEDDirect Exam HCV RNA DETECTED [id number] IU/ML (6.49 LOG IU/ML) This test is [...] Health DepartmentReport Status FINAL 05/29/2019Responsible Observer: JULIET ACOSTA ([id number]) HCV Viral Load NOT REPORTED [facility] Work Phone: Herpes Type I, IgG 6.81 High (<0.91) [facility] Work Phone: Comment on above: Note: Reference Rang e:<=0.90 Negative0.91-1.09 Equivocal>=1.10 PositiveResponsible Observer: DANTE QURESHI (189) Herpes Type I/II,IgM 1.05 High (<0.91) [facility] Work Phone: Comment on above: Note: Reference Rang e:<=0.90 Negative0.91-1.09 Equivocal>=1.10 PositiveIf positive, an IgM result indicates a current or recent infection. This testdoes not differentiate type I from type II. No current reference test isavailable for this. If IgG tests are ordered and are negative, considerretesting in 2 to 3 weeks.Responsible Observer: DANTE QURESHI (189) Herpes Type II, IgG 0.76 (<0.91) [facility] Work Phone: Comment on above: Note: Reference Rang e:<=0.90 Negative0.91-1.09 Equivocal>=1.10 PositiveResponsible Observer: DANTE QURESHI (189) HIV Ag/Ab NONREACTIVE (NR) [facility] Work Phone: Comment on above: Note: No laboratory evidence of HIV infection. If acute HIV infection is suspected,consider testing for HIV-1 RNA.Responsible Observer: JEREMY SAEZ (0758) Immature granulocytes (Bld) [#/Vol] 0 % (0) [facility] Work Phone: Comment on above: Note: Responsible Ob bistro server: XNV AUTOFILE (682) MCHC (RBC) [Mass/Vol] 33.0 g/dL (28.4-34.8) [facility] Work Phone: Comment on above: Note: Responsible Ob bistro server: XNV AUTOFILE (3017) Performing Lab: see note [facility] Work Phone: Comment on above: Note: [facility] [address] [facility] [address] Note: [facility] [address] [facility] [address] Platelet mean volume (Bld) [Entitic vol] 9.9 fL (8.1-13.5) [facility] Work Phone: Comment on above: Note: Responsible Ob bistro server: XNV AUTOFILE (735) Reported Physicians See Note [facility] Work Phone: Comment on above: Note: Reported Physi cians:Ordering: Escobar GomezAttending: Neli GomezieReferring: Escobar Gomez Segmented neutrophils/100 WBC (Bld) 48 % (36-65) [facility] Work Phone: Comment on above: Note: Responsible Ob bistro server: XNV AUTOFILE (436) Staging: NOT REPORTED [facility] Work Phone: T.pallidum Ab Screen NONREACTIVE (NR) [facility] Work [facility]: Comment on above: Note: T. pallidum an tibodies are not detected.There is no serological evidence of infection with T. pallidum (early primarysyphilis cannot be excluded). Retest in 2-4 weeks if syphilis is clinicallysuspect.Responsible Observer: JEREMY SAEZ (9134) Thyroid Stim. Horm. 2.51 mIU/L (0.30-5.00) [facility] Work Phone: Comment on above: Note: Responsible Ob bistro server: CEEV AUTOFILE (1113) WBC Morphology NOT REPORTED [facility] Work Phone: Vital Signs Date Time Vital Sign Value Performing Clinician Facility 06-07-2024 15:30-0400 Body temperature 98 [degF] MD Randy Bosch Work Phone: [facility] 06-07-2024 15:30-0400 Diastolic blood pressure 70 mm[Hg] MD Randy Bosch Work Phone: [facility] 06-07-2024 15:30-0400 Heart rate 75 /min MD Randy Bosch Work Phone: [facility] 06-07-2024 15:30-0400 Respiratory rate 16 /min MD Randy Bosch Work Phone: [facility] 06-07-2024 15:30-0400 SaO2% (BldA) [Mass fraction] 98 % MD Randy Bosch Work Phone: [facility] 06-07-2024 15:30-0400 Systolic blood pressure 111 mm[Hg] MD Randy Bosch Work Phone: [facility] 06-07-2024 06:00-0400 Body weight 55.9 kg MD Randy Bosch Work Phone: [facility] 06-06-2024 10:00-0400 Inhaled oxygen concentration 30 % MD Randy Bosch Work Phone: [facility] 06-06-2024 00:00-0400 Inhaled oxygen flow rate 2 L/min MD Randy Bosch Work Phone: [facility] 06-05-2024 12:20-0400 Body height 167.64 cm MD Randy Bosch Work Phone: [facility] 05-31-2024 18:50-0400 Body height 171.45 cm MD Randy Bosch Work Phone: [facility] 05-31-2024 18:50-0400 Body temperature 98.6 [degF] MD Randy Bosch Work Phone: [facility] 05-31-2024 18:50-0400 Body weight 59 kg MD Randy Bosch Work Phone: [facility] 05-31-2024 18:50-0400 Diastolic blood pressure 75 mm[Hg] MD Randy Bosch Work Phone: [facility] 05-31-2024 18:50-0400 Heart rate 104 /min MD Randy Bosch Work Phone: [facility] 05-31-2024 18:50-0400 Respiratory rate 16 /min MD Randy Bosch Work Phone: [facility] 05-31-2024 18:50-0400 SaO2% (BldA) [Mass fraction] 98 % MD Randy Bosch Work Phone: [facility] 05-31-2024 18:50-0400 Systolic blood pressure 129 mm[Hg] MD Randy Bosch Work Phone: [facility] 01-17-2024 18:46-0400 Body temperature 98.6 [degF] Addi Fede DO Work Phone: [employer] 01-17-2024 18:46-0400 Body weight 63.5 kg Addi Polanco DO Work Phone: [employer] 01-17-2024 18:46-0400 Diastolic blood pressure 99 mm[Hg] Addi Polanco DO Work Phone: [employer] 01-17-2024 18:46-0400 Heart rate 100 /min Addi Polanco DO Work Phone: [employer] 01-17-2024 18:46-0400 Respiratory rate 16 /min Addi Polanco DO Work Phone: [facility] 01-17-2024 18:46-0400 SaO2% (BldA) [Mass fraction] 97 % Addi Polanco DO Work Phone: [facility] 01-17-2024 18:46-0400 Systolic blood pressure 126 mm[Hg] Addi Polanco DO Work Phone: [facility] 12-02-2022 13:12-0400 Body height 167.64 cm MD Randy Bosch Work Phone: [facility] 12-02-2022 13:12-0400 Body temperature 98.8 [degF] MD Randy Bosch Work Phone: [facility] 12-02-2022 13:12-0400 Body weight 65.15 kg MD Randy Bosch Work Phone: [facility] 12-02-2022 13:12-0400 Diastolic blood pressure 94 mm[Hg] MD Randy Bosch Work Phone: [facility] 12-02-2022 13:12-0400 Heart rate 80 /min MD Randy Bosch Work Phone: [facility] 12-02-2022 13:12-0400 Respiratory rate 18 /min MD Randy Bosch Work Phone: [facility] 12-02-2022 13:12-0400 SaO2% (BldA) [Mass fraction] 98 % MD Randy Bosch Work Phone: [facility] 12-02-2022 13:12-0400 Systolic blood pressure 138 mm[Hg] MD Randy Bosch Work Phone: [facility] 07-08-2021 18:47-0500 Diastolic blood pressure 86 mm[Hg] [facility] 07-08-2021 18:47-0500 Heart rate 92 /min [facility] 07-08-2021 18:47-0500 Respiratory rate 20 /min [facility] 07-08-2021 18:47-0500 SaO2% (BldA) [Mass fraction] 97 % [facility] 07-08-2021 18:47-0500 Systolic blood pressure 111 mm[Hg] [facility]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
== END 2024-09-03 11:05 | disposition home or self-care (01) ==
LOC: US 11:04
PROVIDERS: PCP Family Medicine; Visit Provider Family Medicine
DX: M79.9 Soft tissue disorder, unspecified (principal)
CPT/HCPCS: 76705

== ENCOUNTER 2024-09-09 08:11 | Outpatient (OUT) | payer OTHER, SELFPAY ==
--- OUTSIDE RECORDS SUMMARY | 2024-09-09 08:21 | XMS_ITS | CCD ---
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 Radial Normal [facility] Comment on above: Performed By: #### A BG #### Point of Care testing , Automated basophil %Ordered By: Selin Rowe on 06-05-2024 Basophils/100 WBC (Bld) 0.4 % Normal . [facility] Comment on above: Performed By: #### A MM #### [address] Automated basophil countOrde red By: Selin Rowe on 06-05-2024 Basophils (Bld) [#/Vol] 0.0 10*3/uL Normal 0.0-0.2 [facility] Comment on above: Result Comment: PERF ORMED BY: [place] [address] PATHOLOGIST RN IMCU CHARLES COBOS M.D. Performed By: #### A MM #### [address] Automated blood monocyte cou ntOrdered By: Selin Rowe on 06-05-2024 Monocytes (Bld) [#/Vol] 0.8 10*3/uL Normal 0.0-0.8 [facility] Comment on above: Performed By: #### A MM #### [address] Automated eosinophil %Ordere d By: Selin Rowe on 06-05-2024 Eosinophils/100 WBC (Bld) 0.8 % Normal . [facility] Comment on above: Performed By: #### A MM #### [address] Automated eosinophil countOr dered By: Selin Rowe on 06-05-2024 Eosinophils (Bld) [#/Vol] 0.1 10*3/uL Normal 0.0-0.45 [facility] Comment on above: Performed By: #### A MM #### [address] Automated monocyte %Ordered By: Selin Rowe on 06-05-2024 Monocytes/100 WBC (Bld) 11.9 % Normal . [facility] Comment on above: Performed By: #### A MM #### [address] Automated neutrophil %Ordere d By: Selin Rowe on 06-05-2024 Neutrophils/100 WBC (Bld) 65.8 % Normal . [facility] Comment on above: Performed By: #### A MM #### [address] Basic Metabolic Panelon 05-19 Anion gap [Moles/Vol] 9.3 mmol/L Normal 6.0-15.0 [facility] Comment on above: Performed By: #### A MM #### [address] Calcium [Mass/Vol] 8.8 mg/dL Normal 8.6-10.3 [facility] Comment on above: Performed By: #### A MM #### [address] Chloride [Moles/Vol] 98 mmol/L Normal 98-107 [facility] Comment on above: Performed By: #### A MM #### [address] CO2 [Moles/Vol] 34.2 mmol/L High 21.0-31.0 [facility] Comment on above: Performed By: #### A MM #### [address] Creatinine [Mass/Vol] 1.23 mg/dL Normal 0.70-1.30 [facility] Comment on above: Performed By: #### A MM #### [address] [address] [place] Creatinine Clr Calc Pharmacy 64.59 Normal [facility] Comment on above: Result Comment: PERF ORMED BY: [place] [address] PATHOLOGIST RN IMCU CHARLES COBOS M.D. Performed By: #### A MM #### [place] [address] [place] GFR/1.73 sq M.predicted MDRD (S/P/Bld) [Vol rate/Area] mL/min/{1.73_m2} Normal [facility] Comment on above: Performed By: #### A MM #### [address] Glucose [Mass/Vol] 82 mg/dL Normal 70-100 [facility] Comment on above: Result Comment: [place] Glucose Reference Range is dependent on time and content of last meal. Glucose of more than 200 mg/dL in a nonstressed, ambulatory subject supports the diagnosis of Diabetes Mellitus. ADA recommended reference range Performed By: #### A MM #### [address] Potassium [Moles/Vol] 4.5 mmol/L Normal 3.5-5.1 [facility] Comment on above: Performed By: #### A MM #### [address] Sodium [Moles/Vol] 137 mmol/L Normal 136-145 [facility] Comment on above: Performed By: #### A MM #### [address] Urea nitrogen [Mass/Vol] 19 mg/dL Normal 7-25 [facility] Comment on above: Performed By: #### A MM #### [address] head/brain wo roxana 06-05 CT head/brain wo con [facility] [place] [address] [place] [address] CT Scan Report Signed Patient: Leonardo Roach MR#: [id number] : 1985 Acct:[id number] Age/Sex: 39 / M ADM Date: 06/05/24 Loc: Room: [address] [address] Type: ADM IN Attending Dr: Maryam Díaz [...] Paul Wayne M.D.06/05/2024 3:28 PM Dictation Location: [place] [address] Transcribed By: [facility] 06/05/24 1528 Dictated By: Paul Wayne II, MD 06/05/24 1526 Signed By: 06/05/24 1528 Normal [facility] Capillary blood glucose nessa urement by glucometer (mass/volume)Ordered By: Maryam Díaz on 06-05-2024 Glucose [Mass/Vol] 79 mg/dL Normal [facility] Comment on above: Random Glucose Refer ence Range is dependent on time and content of last meal. Glucose of more than 200 mg/dL in a nonstressed, ambulatory subject supports the diagnosis of Diabetes Mellitus. Result Comment: [facility] Glucose Reference Range is dependent on time and content of last meal. Glucose of more than 200 mg/dL in a nonstressed, ambulatory subject supports the diagnosis of Diabetes Mellitus. Performed By: #### G HOMAR #### Point of Care testing , Complete Blood Count Auto Di ffon 06-05-2024 Mean Corpuscular HGB Conc 34.3 g/dL Normal 32.5-35.6 [facility] Comment on above: Performed By: #### A MM #### [facility] [address] NRBC% 0.0 /100{WBC} Normal 0-0.5 [facility] Comment on above: Performed By: #### A MM #### [facility] [address] DRUG SCREEN, URINEon 024 AMPHETAMINE/METHAMP Positive Abnormal NEG [facility] Comment on above: Result Comment: Conf irmation available upon request. AMPH/METH screening cut off = 1000 ng/mL Performed By: #### D STARKEY #### [facility] ([id number]) [address] [place] [address] BARBITURATES Negative Normal NEG [facility] Comment on above: Result Comment: Audrey iturates screening cut off value = 200 ng/mL Performed By: #### D STARKEY #### [facility] ([id number]) [address] [place] [address] BENZODIAZEPINES Negative Normal NEG [facility] Comment on above: Result Comment: Jules odiazepines screening cut off value = 200 ng/mL Performed By: #### D STARKEY #### [facility] ([id number]) [address] [place] [address] CANNABINOIDS Positive Abnormal NEG [facility] Comment on above: Result Comment: Conf irmation available upon request. Cannabinoids/THC screening cut off value = 50 ng/mL Performed By: #### D STARKEY #### [facility] ([id number]) [address] [place] [address]42[address] COCAINE METABOLITE Negative Normal NEG [facility] Comment on above: Result Comment: Coca ine screening cut off value = 300 ng/mL Performed By: #### D STARKEY #### [facility] ([id number]) [address] [place] [address] 88972 ECSTASY Negative Normal NEG [facility] Comment on above: Result Comment: Ecst asy screening cut off value = 500 ng/mL This report is intended for use in clinical monitoring or management of patients. Performed By: #### D STARKEY #### [facility] ([id number]) [address] [place] [address] METHADONE Negative Normal NEG [facility] Comment on above: Result Comment: Meth adone screening cut off value = 300 ng/mL. Performed By: #### D STARKEY #### [facility] ([id number]) [address] [place] [address] 13543 OPIATES Negative Normal NEG [facility] Comment on above: Result Comment: Opia marilee screening cut off value = 300 ng/mL NOTE: This test is used for the detection of codeine, hydrocodone (>1000 ng/mL), morphine and hydromorphone (>900 ng/mL) in urine. Performed By: #### D STARKEY #### [facility] ([id number]) [address] [place] [address] [place] [address] OXYCODONE Negative Normal NEG [facility] Comment on above: Result Comment: Oxyc odone screening cut off value = 300 ng/mL NOTE: This test is used for the detection of oxycodone and oxymorphone in urine. Performed By: #### D STARKEY #### [facility] ([id number]) [address] [place] [address] PHENCYCLIDINE Negative Normal NEG [facility] Comment on above: Result Comment: Phen cyclidine screening cut off value = 25 ng/mL Performed By: #### D STARKEY #### [facility] ([id number]) [address] [place] [address], [place] [address] Erythrocyte distribution wid th [Ratio] by Automated countOrdered By: Selin Rowe on 06-05-2024 Erythrocyte distribution width (RBC) [Ratio] 13.6 % Normal 12.0-14.8 [facility] Comment on above: Performed By: #### A MM #### [place] [address] [place] Erythrocytes [#/volume] in B lood by Automated countOrdered By: Selin Rowe on 06-05-2024 RBC (Bld) [#/Vol] 4.21 10*6/uL Normal 3.90-5.60 [facility] Comment on above: Performed By: #### A MM #### [address] Glucose Poct Glucometerson 1 Commemt1 Glu2: Cleaned Meter Normal [facility] Comment on above: Result Comment: PERF ORMED BY: [place] [address] PATHOLOGIST RN IMCU CHARLES COBOS M.D. Performed By: #### G HOMAR #### Point of Care testing , Hematocrit [Volume Fraction] of Blood by Automated countOrdered By: Selin Rowe on 06-05-2024 Hematocrit (Bld) [Volume fraction] 39.4 % Normal 38.8-50.0 [facility] Comment on above: Performed By: #### A MM #### [place] [address] [place] Hemoglobin [Mass/volume] in BloodOrdered By: Selin Rowe on 06-05-2024 Hemoglobin (Bld) [Mass/Vol] 13.5 g/dL Normal 13.0-17.0 [facility] Comment on above: Performed By: #### A MM #### [place] [address] [place] Leukocytes [#/volume] correc mayda for nucleated erythrocytes in Blood by Automated counOrdered By: Selin Rowe on 06-05-2024 WBC corrected for nucl RBC Auto (Bld) [#/Vol] 6.6 10*3/uL 4.1-10.5 [facility] Leukocytes [#/volume] in Blo od by Automated countOrdered By: Selin Rowe on 06-05-2024 WBC (Bld) [#/Vol] 6.6 10*3/uL Normal 4.1-10.5 [facility] Comment on above: Performed By: #### A MM #### [facility] [address] [place] [address] [place] Lymphocytes [#/volume] in Bl ood by Automated countOrdered By: Selin Rowe on 06-05-2024 Lymphocytes (Bld) [#/Vol] 1.4 10*3/uL Normal 1.00-4.8 [facility] Comment on above: Performed By: #### A MM #### [facility] [address] [place] [address] [place] Lymphocytes/100 leukocytes i n Blood by Automated countOrdered By: Selni Rowe on 06-05-2024 Lymphocytes/100 WBC (Bld) 21.1 % Normal . [facility] Comment on above: Performed By: #### A MM #### [place] [address] [place] MCH [Entitic mass] by Automa mayda countOrdered By: Selin Rowe on 06-05-2024 MCH (RBC) [Entitic mass] 32.1 pg Normal 27.5-35.2 [facility] Comment on above: Performed By: #### A MM #### [address] MCHC Auto (RBC) [Mass/Vol]Or dered By: Selin Rowe on 06-05-2024 MCHC (RBC) [Mass/Vol] 34.3 g/dL 32.5-35.6 [facility] MCV [Entitic volume] by Auto mated countOrdered By: Selin Rowe on 06-05-2024 MCV (RBC) [Entitic vol] 93.6 fL Normal 83.5-101 [facility] Comment on above: Performed By: #### A MM #### [address] Neutrophils [#/volume] in Bl ood by Automated countOrdered By: Selin Rowe on 06-05-2024 Neutrophils (Bld) [#/Vol] 4.3 10*3/uL Normal 1.8-7.7 [facility] Comment on above: Performed By: #### A MM #### [address] No Panel InformationOrdered By: Maryam Díaz on 06-05-2024 Bedside Glucose Comment Glu2: cleaned meter [facility] Blood Gas Liter Flow 3 L/min [facility] Nucleated erythrocytes [Pres ence] in Blood by Automated countOrdered By: Selin Rowe on 06-05-2024 Nucleated RBC Auto Ql (Bld) 0.0 /100{WBC} 0-0.5 [facility] Platelet mean volume [Entiti c volume] in Blood by Automated countOrdered By: Selin Rowe on 06-05-2024 Platelet mean volume (Bld) [Entitic vol] 7.7 fL Normal 6.6-10.1 [facility] Comment on above: Performed By: #### A MM #### [address] Platelets [#/volume] in Bloo d by Automated countOrdered By: Selin Rowe on 06-05-2024 Platelets (Bld) [#/Vol] 262 10*3/uL Normal 150-450 [facility] Comment on above: Performed By: #### A MM #### [facility] [address] [place] [address] [place] URN MACROSCOPIC NURon 2023 BILIRUBIN VIRGIE Negative Normal NEG [facility] Comment on above: Performed By: #### N UM #### [facility] ([id number]) [address] [place] [address], [place] [address] BLOOD/HGB VIRGIE Negative Normal NEG [facility] Comment on above: Performed By: #### N UM #### [facility] ([id number]) [address] [place] [address] 112[address] GLUCOSE VIRGIE Negative Normal NEG [facility] Comment on above: Performed By: #### N UM #### [facility] ([id number]) [address] [place] [address] [place] [address] KETONES VIRGIE Negative Normal NEG [facility] Comment on above: Performed By: #### N UM #### [facility] ([id number]) [address] [place] [address] 92927 LEUKOCYTE ESTERASE VIRGIE Negative Normal NEG [facility] Comment on above: Performed By: #### N UM #### [facility] ([id number]) [address] [place] [address] 64590 NITRITE VIRGIE Negative Normal NEG [facility] Comment on above: Performed By: #### N UM #### [facility] ([id number]) [address] [place] [address] 38498 PH VIRGIE 5.0 Normal 5.0-8.5 [facility] Comment on above: Performed By: #### N UM #### [facility] ([id number]) [address] [place] [address] 935[address] PROTEIN VIRGIE 30 mg/dL Abnormal NEG [facility] Comment on above: Performed By: #### N UM #### [facility] ([id number]) [address] [place] [address] [place] [address] SPECIFIC GRAVITY VIRGIE 1.025 Normal 1.003-1.035 [facility] Comment on above: Performed By: #### N UM #### [facility] ([id number]) [address] [place] [address] [place] [address] UROBILINOGEN VIRGIE 0.2 eu/dL Normal <1.1 [facility] Comment on above: Performed By: #### N UM #### [facility] ([id number]) [address] [place] [address] 39501 XR chest 1V portableon 06-05 XR chest 1V portable [facility] [place] [address] [place] [address] XRay Report Signed Patient: Leonardo Roach MR#: [id number] : 1985 Acct:[id number] Age/Sex: 39 / M ADM Date: 06/05/24 Loc: Room: [address] [address] Type: ADM IN Attending Dr: Maryam Díaz [...] Keen Jr., D.O.06/05/2024 3:02 PM Dictation Location: [place] [address] Transcribed By: [facility] 06/05/24 1502 Dictated By: Delano Keen Jr, DO 06/05/24 1459 Signed By: 06/05/24 1502 Normal [facility] ACETAMINOPHENon 06-04-2024 Acetaminophen [Mass/Vol] 2.5 ug/mL Low 10.0-30.0 [facility] Comment on above: Result Comment: Refe rence ranges are for therapeutic limits. Performed By: #### T HYR, CMP, 4024-6, CBCA, 3298-7, 5643-2 #### [facility] ([id number]) [address] [place] [address] CBC AND AUTO DIFFon 06-04-20 ABSOLUTE BASOPHIL 0.0 X10E9/L Normal 0.0-0.2 [facility] Comment on above: Performed By: #### T HYR, CMP, 4024-6, CBCA, 3298-7, 5643-2 #### [facility] ([id number]) [address] [place] [address] 71311 ABSOLUTE NEUTROPHIL 8.5 X10E9/L High 1.5-6.6 [facility] Comment on above: Performed By: #### T HYR, CMP, 4024-6, CBCA, 3298-7, 5643-2 #### [facility] ([id number]) [address] [place] [address] 47252 Basophils/100 WBC (Bld) 0.1 % Normal [facility] Comment on above: Performed By: #### T HYR, CMP, 4024-6, CBCA, 3298-7, 5643-2 #### [facility] ([id number]) [address] [place] [address] 20545 Eosinophils (Bld) [#/Vol] 0.0 10*3/uL Normal 0.0-0.4 [facility] Comment on above: Performed By: #### T HYR, CMP, 4024-6, CBCA, 3298-7, 5643-2 #### [facility] ([id number]) [address] [place] [address] 86595 Eosinophils/100 WBC (Bld) 0.3 % Normal [facility] Comment on above: Performed By: #### T HYR, CMP, 4024-6, CBCA, 3298-7, 5643-2 #### [facility] ([id number]) [address] [place] [address] 29819 Erythrocyte distribution width (RBC) [Ratio] 13.8 % Normal 11.5-15.0 [facility] Comment on above: Performed By: #### T HYR, CMP, 4024-6, CBCA, 3298-7, 5643-2 #### [facility] ([id number]) [address] [place] [address] 02560 Hematocrit (Bld) [Volume fraction] 40.2 % Normal 39-49 [facility] Comment on above: Performed By: #### T HYR, CMP, 4024-6, CBCA, 3298-7, 5643-2 #### [facility] ([id number]) [address] [place] [address] 82448 Hemoglobin (Bld) [Mass/Vol] 13.6 g/dL Normal 13.0-17.0 [facility] Comment on above: Performed By: #### Uzma HYR, CMP, 4024-6, CBCA, 3298-7, 5643-2 #### [facility] ([id number]) [address] [place] [address] 16634 Lymphocytes (Bld) [#/Vol] 0.6 10*3/uL Low 1.0-3.5 [facility] Comment on above: Performed By: #### T HYR, CMP, 4024-6, CBCA, 3298-7, 5643-2 #### [facility] ([id number]) [address] [place] [address] 69633 Lymphocytes/100 WBC (Bld) 6.2 % Normal [facility] Comment on above: Performed By: #### T HYR, CMP, 4024-6, CBCA, 3298-7, 5643-2 #### [facility] ([id number]) [address] [place] [address] 49702 MCH (RBC) [Entitic mass] 31.7 pg Normal 27-34 [facility] Comment on above: Performed By: #### T HYR, CMP, 4024-6, CBCA, 3298-7, 5643-2 #### [facility] ([id number]) [address] [place] [address] 35322 MCHC (RBC) [Mass/Vol] 33.9 g/dL Normal 32-36 [facility] Comment on above: Performed By: #### T HYR, CMP, 4024-6, CBCA, 3298-7, 5643-2 #### [facility] ([id number]) [address] [place] [address] 78536 MCV (RBC) [Entitic vol] 94 fL Normal 80-100 [facility] Comment on above: Performed By: #### T HYR, CMP, 4024-6, CBCA, 3298-7, 5643-2 #### [facility] ([id number]) [address] [place] [address] 02803 Monocytes (Bld) [#/Vol] 0.8 10*3/uL Normal 0-0.9 [facility] Comment on above: Performed By: #### T HYR, CMP, 4024-6, CBCA, 3298-7, 5643-2 #### [facility] ([id number]) [address] [place] [address] 73844 Monocytes/100 WBC (Bld) 8.3 % Normal [facility] Comment on above: Performed By: #### T HYR, CMP, 4024-6, CBCA, 3298-7, 5643-2 #### [facility] ([id number]) [address] [place] [address] 58919 Neutrophils/100 WBC (Bld) 85.1 % Normal [facility] Comment on above: Performed By: #### T HYR, CMP, 4024-6, CBCA, 3298-7, 5643-2 #### [facility] ([id number]) [address] [place] [address] 36663 Platelet mean volume (Bld) [Entitic vol] 7.3 fL Normal 7-12 [facility] Comment on above: Performed By: #### T HYR, CMP, 4024-6, CBCA, 3298-7, 5643-2 #### [facility] ([id number]) [address] [place] [address] 88197 Platelets (Bld) [#/Vol] 283 10*3/uL Normal 150-450 [facility] Comment on above: Performed By: #### T HYR, CMP, 4024-6, CBCA, 3298-7, 5643-2 #### [facility] ([id number]) [address] [place] [address] 45658 RBC COUNT 4.30 X10E12/L Normal 4.10-5.70 [facility] Comment on above: Performed By: #### T HYR, CMP, 4024-6, CBCA, 3298-7, 5643-2 #### [facility] ([id number]) [address] [place] [address] 74906 WBC (Bld) [#/Vol] 10.0 10*3/uL Normal 4.0-11.0 [facility] Comment on above: Performed By: #### T HYR, CMP, 4024-6, CBCA, 3298-7, 5643-2 #### [facility] ([id number]) [address] [place] [address] 29896 COMPREHENSIVE METABOLIC PANE Nando 06-04-2024 Albumin [Mass/Vol] 4.0 g/dL Normal 3.2-5.3 [facility] Comment on above: Performed By: #### T HYR, CMP, 4024-6, CBCA, 3298-7, 5643-2 #### [facility] ([id number]) [address] [place] [address] 57999 ALP [Catalytic activity/Vol] 71 U/L Normal 39-130 [facility] Comment on above: Performed By: #### T HYR, CMP, 4024-6, CBCA, 3298-7, 5643-2 #### [facility] ([id number]) [address] [place] [address] 20595 ALT [Catalytic activity/Vol] 239 U/L High 0-40 [facility] Comment on above: Performed By: #### T HYR, CMP, 4024-6, CBCA, 3298-7, 5643-2 #### [facility] ([id number]) [address] [place] [address] 89365 Anion gap [Moles/Vol] 6 mmol/L Normal 5-15 [facility] Comment on above: Performed By: #### T HYR, CMP, 4024-6, CBCA, 3298-7, 5643-2 #### [facility] ([id number]) [address] [place] [address] 02604 AST [Catalytic activity/Vol] 134 U/L High 0-41 [facility] Comment on above: Performed By: #### T HYR, CMP, 4024-6, CBCA, 3298-7, 5643-2 #### [facility] ([id number]) [address] [place] [address] 09497 Bilirubin [Mass/Vol] 0.2 mg/dL Low 0.3-1.2 [facility] Comment on above: Performed By: #### T HYR, CMP, 4024-6, CBCA, 3298-7, 5643-2 #### [facility] ([id number]) [address] [place] [address] 12030 Calcium [Mass/Vol] 8.4 mg/dL Low 8.5-10.5 [facility] Comment on above: Performed By: #### T HYR, CMP, 4024-6, CBCA, 3298-7, 5643-2 #### [facility] ([id number]) [address] [place] [address] 69103 Chloride [Moles/Vol] 97 mmol/L Low 98-109 [facility] Comment on above: Performed By: #### T HYR, YAQUELIN, 4024-6, CBCA, 3298-7, 5643-2 #### [facility] ([id number]) [address] [place] [address] 25277 CO2 [Moles/Vol] 30 mmol/L Normal 22-32 [facility] Comment on above: Performed By: #### T HYR, YAQUELIN, 4024-6, CBCA, 3298-7, 5643-2 #### [facility] ([id number]) [address] [place] [address] 53245 Creatinine [Mass/Vol] 1.49 mg/dL High 0.70-1.20 [facility] Comment on above: Result Comment: METH OD TRACEABLE TO IDMS STANDARD Performed By: #### T HUGOR, YAQUELIN, 4024-6, CBCA, 3298-7, 5643-2 #### [facility] ([id number]) [address] [place] [address] 53562 GFR/1.73 sq M.predicted among non-blacks MDRD (S/P/Bld) [Vol rate/Area] 60 mL/min/{1.73_m2} Normal >59 [facility] Comment on above: Result Comment: Reported eGFR is based on the CKD-EPI 2020 equation that does not use a race coefficient. Performed By: #### T HYR, YAQUELIN, 4024-6, CBCA, 3298-7, 5643-2 #### [facility] ([id number]) [address] [place] [address] 44176 Glucose [Mass/Vol] 131 mg/dL High 65-99 [facility] Comment on above: Performed By: #### T HYR, CMP, 4024-6, CBCA, 3298-7, 5643-2 #### [facility] ([id number]) [address] [place] [address] 98645 Potassium [Moles/Vol] 4.3 mmol/L Normal 3.5-5.0 [facility] Comment on above: Performed By: #### T HYR, CMP, 4024-6, CBCA, 3298-7, 5643-2 #### [facility] ([id number]) [address] [place] [address] 37386 Protein [Mass/Vol] 6.8 g/dL Normal 6.0-8.0 [facility] Comment on above: Performed By: #### T HYR, CMP, 4024-6, CBCA, 3298-7, 5643-2 #### [facility] ([id number]) [address] [place] [address] 46238 Sodium [Moles/Vol] 133 mmol/L Low 134-146 [facility] Comment on above: Performed By: #### Uzma HYR, YAQUELIN, 4024-6, CBCA, 3298-7, 5643-2 #### [facility] ([id number]) [address] [place] [address] 75815 Urea nitrogen [Mass/Vol] 15 mg/dL Normal 5-23 [facility] Comment on above: Performed By: #### T HYR, CMP, 4024-6, CBCA, 3298-7, 5643-2 #### [facility] ([id number]) [address] [place] [address] 33322 ETHANOLon 06-04-2024 Ethanol [Mass/Vol] mg/dL Normal 0.00-0.08 [facility] Comment on above: Result Comment: This report is intended for use in clinical monitoring or management of patients. Performed By: #### T HYR, CMP, 4024-6, CBCA, 3298-7, 5643-2 #### [facility] ([id number]) [address] [place] [address] 74316 Salicylates [Mass/Vol]on SALICYLATE <4.0 Normal 2.0-25.0 [facility] Comment on above: Result Comment: Refe rence ranges are for therapeutic limits. Performed By: #### T HYR, CMP, 4024-6, CBCA, 3298-7, 5643-2 #### [facility] ([id number]) [address] [place] [address] 33409 THYROID PROFILEon 06-04-2024 Free T4 [Mass/Vol] 0.91 ng/dL Normal 0.61-1.60 [facility] Comment on above: Performed By: #### T HYR, CMP, 4024-6, CBCA, 3298-7, 5643-2 #### [facility] ([id number]) [address] [place] [address] 50709 TSH 3.15 uIU/mL Normal 0.49-4.67 [facility] Comment on above: Performed By: #### T HYR, CMP, 4024-6, CBCA, 3298-7, 5643-2 #### [facility] ([id number]) [address] [place] [address] 98738 Provider Letteron 05-11-2024 Provider Letter Provider Letter May 11, [address] [address] : 1985 Dear Leonardo, We have been trying to reach you with no success. It is important that you return our call regarding your referral from Dr. Bosch to see [facility]. Please call the office to schedule a consultation appointment upon receiving this letter. Also, at the time of your call, please provide us with your current information. Thank you for your prompt attention to this matter. Sincerely, [facility] [phone] [facility] [address] BRAIN WO CONTon 4 CT BRAIN [...] Hiren Yeung MD on 01/06/2024 2:[address] [facility] CT FACIAL BONES WO CONTon CT FACIAL [...] Yeung MD on 01/06/2024 1:47 AM Normal [facility] H PYLORI ANTIBODY IGGon 11-17 H. PYLORI IGG ABS 0.13 Index Value Normal 0.00-0.79 [facility] Comment on above: Result Comment: Nega tive <0.80 Equivocal 0.80 - 0.89 Positive >0.89 Performed By: #### V ITAD, IRON #### [facility] [address] [place] [address] Dr. Kinjal Ruvalcaba HEPATITIS PANEL, ACUTEon HBsAg Screen Negative Normal Negative [facility] Comment on above: Performed By: #### V ITAD, IRON #### [facility] [address] [address] [address] Kinjal Ruvalcaba HCV AB Reactive Abnormal Non Reactive [facility] Comment on above: Performed By: #### V ITAD, IRON #### [facility] [address] [address] [address] Kinjal Ruvalcaba HCV log10 Normal [facility] Comment on above: Performed By: #### V ITAD, IRON #### [facility] [address] [address] [address] Kinjal Ruvalcaba HCV log10 7.004 log10 IU/mL Normal [facility] Comment on above: Performed By: #### V ITAD, IRON #### [facility] [address] [address] [address] Kinjal Ruvalcaba HCV RNA (International Units) [id number] IU/mL Normal [facility] Comment on above: Performed By: #### V ITAD, IRON #### [facility] [address] [address] [address] Kinjal Ruvalcaba Hep A Ab, IgM Negative Normal Negative [facility] Comment on above: Performed By: #### V ITAD, IRON #### [facility] [address] [address] [address] Kinjal Ruvalcaba Hep B Core Ab, IgM Negative Normal Negative [facility] Comment on above: Performed By: #### V ITAD, IRON #### [facility] [address] [place] [address] Dr. Kinjal Ruvalcaba Hep C Quantitation See Final Results [facility] Comment on above: Performed By: #### V ITAD, IRON #### [facility] [address] [place] [address] Dr. Kinjal Ruvalcaba Interpretation Comment Normal [facility] Comment on above: Result Comment: Posi tive HCV antibody screen with the presence of HCV RNA is consistent with active infection. Performed By: #### V ITAD, IRON ####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 AHCGEN #### [facility] [address] [place], [place] [phone] Progress Worker: Remi Harman MD ALT, Fibro 58 U/L High 5-50 [facility] Comment on above: Performed By: #### C DP, CP, LIPR, TSHX, TREP, HIVCMB, HSVPR #### [facility] [address] [place] [id number] Progress Worker: Satya Valdez MD #### AHCGEN #### [address] [phone] Progress Worker: Remi Harman MD AST, Fibro 38 U/L Normal 9-50 [facility] Comment on above: Performed By: #### C DP, CP, LIPR, TSHX, TREP, HIVCMB, HSVPR #### [address] [address] Progress Worker: Satya Valdez MD #### AHCGEN #### [address] [phone] Progress Worker: Remi Harman MD CirrhM Patient Score 0 Normal [facility] Comment on above: Performed By: #### C DP, CP, LIPR, TSHX, TREP, HIVCMB, HSVPR #### [address] [address] Progress Worker: Satya Valdez MD #### AHCGEN #### [facility] [address] [place] [phone] Progress Worker: Remi Harman MD EER Fibro Rpt See Note Normal [facility] Comment on above: Result Comment: (NOT E) Access [facility] Enhanced Report using either link below: -Direct access: [email or web address]/?[email or web address] -Enter Username, Password: [email or web address] Username: [email or web address] Password: [email or web address] Performed By: #### C DP, CP, LIPR, TSHX, TREP, HIVCMB, HSVPR #### [facility] [address] [place] [address] Progress Worker: Satya Valdez MD #### AHCGEN #### [facility] [address] [place] [address] Progress Worker: Remi Harman MD Fibro Interpretation See Report Normal [facility] Comment on above: Result Comment: (NOT E) [17] [16] INTERPRETIVE INFORMATION: Fibrometer Interpretation Calculations for the final report are based on accurate data for age, gender, and platelet count. If any of this information needs to be corrected, please contact [employer] to request a recalculation. Client Services may be contacted at . The [employer] FibroMeter profile serves as a surrogate marker [...] combinations. Test developed and characteristics determined by [facility]. See Compliance Statement B: [employer]CS Performed By: [facility] [address] [place] [id number] Nuclear Physician: Terese Muniz MD Performed By: #### C DP, CP, LIPR, TSHX, TREP, HIVCMB, HSVPR #### [address] [address] Progress Worker: Satya Valdez MD #### AHCGEN #### [address] [phone] Progress Worker: Remi Harman MD Fibro Metavir Class SEE NOTE Normal [facility] Comment on above: Result Comment: (NOT E) [...] CP, LIPR, TSHX, TREP, HIVCMB, HSVPR #### [address] [phone] Progress Worker: Satya Valdez MD #### AHCGEN #### [address] [address] Progress Worker: Remi Harman MD FibroM Patient Score 0.19 Normal [facility] Comment on above: Performed By: #### C DP, CP, LIPR, TSHX, TREP, HIVCMB, HSVPR #### [address] [address] Progress Worker: Satya Valdez MD #### AHCGEN #### [facility] [address] [place], [place] [phone] Progress Worker: Remi Harman MD GGT, Fibro 26 U/L Normal 7-51 [facility] Comment on above: Performed By: #### C DP, CP, LIPR, TSHX, TREP, HIVCMB, HSVPR #### [address] [address] Progress Worker: Satya Valdez MD #### AHCGEN #### [address] [phone] Progress Worker: Remi Harman MD InflaM Metavir Class A1/A2 Normal [facility] Comment on above: Result Comment: (NOT E) INTERPRETIVE INFORMATION: InflaMeter Metavir Classification InflaMeter (activity score) comments A0/A1 Equal probability between A0 and A1 A1/A2 Equal probability between A1 and A2 A2/A3 Equal probability between A2 and A3 Performed By: #### C DP, CP, LIPR, TSHX, TREP, HIVCMB, HSVPR #### [address] [address] Progress Worker: Satya Valdez MD #### AHCGEN #### [facility] [address] [place] [phone] Progress Worker: Remi Harman MD InflaM Patient Score 0.28 Normal [facility] Comment on above: Performed By: #### C DP, CP, LIPR, TSHX, TREP, HIVCMB, HSVPR #### [address] [address] Progress Worker: Satya Valdez MD #### AHCGEN #### [facility] [address] [place], [place] [phone] Progress Worker: Remi Harman MD Prothrombin Index 103 % Normal 90-120 [facility] Comment on above: Performed By: #### C DP, CP, LIPR, TSHX, TREP, HIVCMB, HSVPR #### [address] [address] Progress Worker: Satya Valdez MD #### AHCGEN #### [address] [address] Progress Worker: Remi Harman MD Urea nitrogen [Mass/Vol] 17 mg/dL Normal 7-20 [facility] Comment on above: Performed By: #### C DP, CP, LIPR, TSHX, TREP, HIVCMB, HSVPR #### [address] [phone] Progress Worker: Satya Valdez MD #### AHCGEN #### [address] [address] Progress Worker: Remi Harman MD Drugs of Abuse, S/Ed 2019 Amphetamines, S/P Positive Normal Cutoff 20 [facility] Comment on above: Result Comment: (NOT E) If the screen is positive, then confirmation by mass spectrometry will be added. Additional charges will apply. Unconfirmed positive may be useful for medical purposes, but does not meet forensic standards. Performed By: #### C DP, CP, LIPR, TSHX, TREP, HIVCMB, HSVPR #### [address] [address] Progress Worker: Satya Valdez MD #### AHCGEN #### [address] [address] Progress Worker: Remi Harman MD Barbiturates, S/P Negative Normal Cutoff 50 [facility] Comment on above: Performed By: #### C DP, CP, LIPR, TSHX, TREP, HIVCMB, HSVPR #### [facility] [place] [address] Progress Worker: Satya Valdez MD #### AHCGEN #### [facility] [address] [place] [address] Progress Worker: Remi Harman MD Benzodiazepines, S/P Negative Normal Cutoff 50 [facility] Comment on above: Performed By: #### C DP, CP, LIPR, TSHX, TREP, HIVCMB, HSVPR #### [address] [address] Progress Worker: Satya Valdez MD #### AHCGEN #### [address] [phone] Progress Worker: Remi Harman MD Buprenorphine, S/P Negative Normal Cutoff 1 [facility] Comment on above: Performed By: #### C DP, CP, LIPR, TSHX, TREP, HIVCMB, HSVPR #### [address] [address] Progress Worker: Satya Valdez MD #### AHCGEN #### [address] [phone] Progress Worker: Remi Harman MD Cocaine, Serum/Plas Negative Normal Cutoff 20 [facility] Comment on above: Performed By: #### C DP, CP, LIPR, TSHX, TREP, HIVCMB, HSVPR #### [address] [address] Progress Worker: Satya Valdez MD #### AHCGEN #### [facility] [address] [place], [place] [phone] Progress Worker: Remi Harman MD Comment See Note Normal [facility] Comment on above: Result Comment: (NOT E) [...] use. Test developed and characteristics determined by [facility]. See Compliance Statement B: [employer] Performed By: [facility] [address] [place] [id number] Nuclear Physician: Terese Muniz MD Performed By: #### C DP, CP, LIPR, TSHX, TREP, HIVCMB, HSVPR #### [facility] [address] [place] [phone] Progress Worker: Satya Valdez MD #### DREAGEN #### [facility] [address] [place] [phone] Progress Worker: Remi Harman MD Methadone, S/P Negative Normal Cutoff 25 [facility] Comment on above: Performed By: #### C DP, CP, LIPR, TSHX, TREP, HIVCMB, HSVPR #### [facility] [place], [place] [phone] Progress Worker: Satya Valdez MD #### DREAGEN #### [facility] [address] [place], [place] [phone] Progress Worker: Remi Harman MD Methamphetamine,S/P Positive Normal Cutoff 20 [facility] Comment on above: Result Comment: (NOT E) If the screen is positive, then confirmation by mass spectrometry will be added. Additional charges will apply. Unconfirmed positive may be useful for medical purposes, but does not meet forensic standards. Performed By: #### C DP, CP, LIPR, TSHX, TREP, HIVCMB, HSVPR #### [address] [address] Progress Worker: Satya Valdez MD #### AHCGEN #### [address] [address] Progress Worker: Remi Harman MD Opiates, Serum/Plas Negative Normal Cutoff 20 [facility] Comment on above: Performed By: #### C DP, CP, LIPR, TSHX, TREP, HIVCMB, HSVPR #### [address] [address] Progress Worker: Satya Valdez MD #### AHCGEN #### [address] [phone] Progress Worker: Remi Harman MD Oxycodone, S/P Negative Normal Cutoff 20 [facility] Comment on above: Performed By: #### C DP, CP, LIPR, TSHX, TREP, HIVCMB, HSVPR #### [address] [address] Progress Worker: Satya Valdez MD #### AHCGEN #### [facility] [address] [place] [phone] Progress Worker: Remi Harman MD Phencyclidine, S/P Negative Normal Cutoff 10 [facility] Comment on above: Performed By: #### C DP, CP, LIPR, TSHX, TREP, HIVCMB, HSVPR #### [address] [address] Progress Worker: Satya Valdez MD #### AHCGEN #### [facility] [address] [place] [address] Progress Worker: Remi Harman MD THC, Serum/Plasma Positive Normal Cutoff 20 [facility] Comment on above: Result Comment: (NOT E) If the screen is positive, then confirmation by mass spectrometry will be added. Additional charges will apply. Unconfirmed positive may be useful for medical purposes, but does not meet forensic standards. Performed By: #### C DP, CP, LIPR, TSHX, TREP, HIVCMB, HSVPR #### [address] [phone] Progress Worker: Satya Valdez MD #### CGEN #### [address] [address] Progress Worker: Remi Harman MD HCV RNA,Quant,PCRon 05-19-20 20 HCV RNA,Quant,PCR Specimen Description .PLASMA Special Requests NOT REPORTED Direct Exam HCV RNA DETECTED [id number] IU/ML (6.94 LOG IU/ML) This test is [...] Health Department Report Status FINAL 05/19/2020 Normal [facility] Comment on above: Performed By: #### C DP, CP, LIPR, TSHX, TREP, HIVCMB, HSVPR #### [email or web address] [address] [place] [address] [phone] Progress Worker: Satya Valdez MD #### AHCGEN #### [facility] [address] [place] [address] Progress Worker: Remi Harman MD CBCon 05-18-2020 Erythrocyte distribution width (RBC) [Ratio] 12.8 % Normal 11.8-14.4 [facility] Comment on above: Performed By: #### C DP, CP, LIPR, TSHX, TREP, HIVCMB, HSVPR #### [address] [address] Progress Worker: Satya Valdez MD #### AHCGEN #### [facility] [address] [place] [address] Progress Worker: Remi Harman MD Hematocrit (Bld) [Volume fraction] 44.0 % Normal 40.7-50.3 [facility] Comment on above: Performed By: #### C DP, CP, LIPR, TSHX, TREP, HIVCMB, HSVPR #### [place] [address] Progress Worker: Satya Valdez MD #### AHCGEN #### [facility] [address] [place] [address] [phone] Progress Worker: Remi Harman MD Hemoglobin (Bld) [Mass/Vol] 14.6 g/dL Normal 13.0-17.0 [facility] Comment on above: Performed By: #### C DP, CP, LIPR, TSHX, TREP, HIVCMB, HSVPR #### [address] [address] Progress Worker: Satya Valdez MD #### AHCGEN #### [facility] [address] [place] [address] [phone] Progress Worker: Remi Harman MD MCH (RBC) [Entitic mass] 31.1 pg Normal 25.2-33.5 [facility] Comment on above: Performed By: #### C DP, CP, LIPR, TSHX, TREP, HIVCMB, HSVPR #### [address] [address] Progress Worker: Satya Valdez MD #### AHCGEN #### [facility] [address] [place], [place] [id number] Progress Worker: Remi Harman MD MCHC (RBC) [Mass/Vol] 33.2 g/dL Normal 28.4-34.8 [facility] Comment on above: Performed By: #### C DP, CP, LIPR, TSHX, TREP, HIVCMB, HSVPR #### [address] [address] Progress Worker: Satya Valdez MD #### AHCGEN #### [facility] [address] [place], [place] [id number] Progress Worker: Remi Harman MD MCV (RBC) [Entitic vol] 93.6 fL Normal 82.6-102.9 [facility] Comment on above: Performed By: #### C DP, CP, LIPR, TSHX, TREP, HIVCMB, HSVPR #### [place] [address] Progress Worker: Satya Valdez MD #### AHCGEN #### [facility] [address] [place], [place] [phone] Progress Worker: Remi Harman MD NRBC Automated 0.0 per 100 WBC Normal 0.0 [facility] Comment on above: Performed By: #### C DP, CP, LIPR, TSHX, TREP, HIVCMB, HSVPR #### [address] [address] Progress Worker: Satya Valdez MD #### AHCGEN #### [facility] [address] [place], [place] [id number] Progress Worker: Remi Harman MD Platelet mean volume (Bld) [Entitic vol] 10.3 fL Normal 8.1-13.5 [facility] Comment on above: Performed By: #### C DP, CP, LIPR, TSHX, TREP, HIVCMB, HSVPR #### [address] [address] Progress Worker: Satya Valdez MD #### AHCGEN #### [facility] [address] [place] [address] Progress Worker: Remi Harman MD Platelets (Bld) [#/Vol] 293 10*3/uL Normal 138-453 [facility] Comment on above: Performed By: #### C DP, CP, LIPR, TSHX, TREP, HIVCMB, HSVPR #### [place] [address] Progress Worker: Satya Valdez MD #### AHCGEN #### [address] [address] Progress Worker: Remi Harman MD RBC (Bld) [#/Vol] 4.70 10*6/uL Normal 4.21-5.77 [facility] Comment on above: Performed By: #### C DP, CP, LIPR, TSHX, TREP, HIVCMB, HSVPR #### [place] [address] Progress Worker: Satya Valdez MD #### AHCGEN #### [facility] [address] [place] [address] Progress Worker: Remi Harman MD WBC (Bld) [#/Vol] 6.1 10*3/uL Normal 3.5-11.3 [facility] Comment on above: Performed By: #### C DP, CP, LIPR, TSHX, TREP, HIVCMB, HSVPR #### [address] [address] Progress Worker: Satya Valdez MD #### AHCGEN #### [facility] [address] [place], [place] [id number] Progress Worker: Remi Harman MD Comp Metabolic Profon 2019 (cont.) Normal [facility] Comment on above: Result Comment: Aver age GFR for 30-39 years old: 107 mL/min/1.73sq m Chronic Kidney Disease: <60 mL/min/1.73sq m Kidney failure: <15 mL/min/1.73sq m eGFR calculated using average adult body mass. Additional eGFR calculator available at: http://www.[employer]/multiple_crcl_2011.htm Performed By: #### C DP, CP, LIPR, TSHX, TREP, HIVCMB, HSVPR #### [address] [phone] Progress Worker: Satya Valdez MD #### AHIshmaelGEN #### [facility] [address] [place], [place] [id number] Progress Worker: Remi Harman MD Albumin [Mass/Vol] 4.4 g/dL Normal 3.5-5.2 [facility] Comment on above: Performed By: #### C DP, CP, LIPR, TSHX, TREP, HIVCMB, HSVPR #### [address] [phone] Progress Worker: Satya Valdez MD #### AHCGEN #### [facility] [address] [place], [place] [id number] Progress Worker: Remi Harman MD Albumin/Globulin [Mass ratio] 1.9 {ratio} Normal 1.0-2.5 [facility] Comment on above: Performed By: #### C DP, CP, LIPR, TSHX, TREP, HIVCMB, HSVPR #### [address] [phone] Progress Worker: Satya Valdez MD #### AHCGEN #### [facility] [address] [place], [place] [id number] Progress Worker: Remi Harman MD Alkaline Phos 63 U/L Normal 40-129 [facility] Comment on above: Performed By: #### C DP, CP, LIPR, TSHX, TREP, HIVCMB, HSVPR #### [address] [address] Progress Worker: Satya Valdez MD #### AHCGEN #### [address] [phone] Progress Worker: Remi Harman MD ALT [Catalytic activity/Vol] 50 U/L High 5-41 [facility] Comment on above: Performed By: #### C DP, CP, LIPR, TSHX, TREP, HIVCMB, HSVPR #### [address] [address] Progress Worker: Satya Valdez MD #### AHCGEN #### [address] [phone] Progress Worker: Remi Harman MD Anion gap [Moles/Vol] 15 mmol/L Normal 9-17 [facility] Comment on above: Performed By: #### C DP, CP, LIPR, TSHX, TREP, HIVCMB, HSVPR #### [address] [address] Progress Worker: Satya Valdez MD #### AHCGEN #### [facility] [address] [place] [address] [phone] Progress Worker: Remi Harman MD AST [Catalytic activity/Vol] 37 U/L Normal <40 [facility] Comment on above: Performed By: #### C DP, CP, LIPR, TSHX, TREP, HIVCMB, HSVPR #### [address] [address] Progress Worker: Satya Valdez MD #### AHCGEN #### [facility] [address] [place], [place] [phone] Progress Worker: Remi Harman MD Bilirubin Ql (U) 0.35 mg/dL Normal 0.3-1.2 [facility] Comment on above: Performed By: #### C DP, CP, LIPR, TSHX, TREP, HIVCMB, HSVPR #### [address] [address] Progress Worker: Satya Valdez MD #### AHCGEN #### [address] [phone] Progress Worker: Remi Harman MD Calcium [Mass/Vol] 9.6 mg/dL Normal 8.6-10.4 [facility] Comment on above: Performed By: #### C DP, CP, LIPR, TSHX, TREP, HIVCMB, HSVPR #### [address] [address] Progress Worker: Satya Valdez MD #### AHCGEN #### [facility] [address] [place], [place] [id number] Progress Worker: Remi Harman MD Chloride [Moles/Vol] 101 mmol/L Normal 98-107 [facility] Comment on above: Performed By: #### C DP, CP, LIPR, TSHX, TREP, HIVCMB, HSVPR #### [address] [address] Progress Worker: Satya Valdez MD #### AHCGEN #### [facility] [address] [place] [address] Progress Worker: Remi Harman MD CO2 [Moles/Vol] 24 mmol/L Normal 20-31 [facility] Comment on above: Performed By: #### C DP, CP, LIPR, TSHX, TREP, HIVCMB, HSVPR #### [address] [address] Progress Worker: Satya Valdez MD #### AHCGEN #### [address] [address] Progress Worker: Remi Harman MD Creatinine [Mass/Vol] 1.26 mg/dL High 0.70-1.20 [facility] Comment on above: Performed By: #### C DP, CP, LIPR, TSHX, TREP, HIVCMB, HSVPR #### [address] [address] Progress Worker: Satya Valdez MD #### AHCGEN #### [address] [address] Progress Worker: Remi Harman MD GFR, Amer >60 Normal >60 [facility] Comment on above: Performed By: #### C DP, CP, LIPR, TSHX, TREP, HIVCMB, HSVPR #### [address] [address] Progress Worker: Satya Valdez MD #### AHCGEN #### [address] [phone] Progress Worker: Remi Harman MD GFR,non Amer >60 Normal >60 [facility] Comment on above: Performed By: #### C DP, CP, LIPR, TSHX, TREP, HIVCMB, HSVPR #### [address] [address] Progress Worker: Satya Valdez MD #### AHCGEN #### [facility] [address] [place] [address] [phone] Progress Worker: Remi Harman MD Glucose [Mass/Vol] 85 mg/dL Normal 70-99 [facility] Comment on above: Performed By: #### C DP, CP, LIPR, TSHX, TREP, HIVCMB, HSVPR #### [address] [address] Progress Worker: Satya Valdez MD #### AHCGEN #### [facility] [address] [place] [address] Progress Worker: Remi Harman MD Potassium [Moles/Vol] 4.2 mmol/L Normal 3.7-5.3 [facility] Comment on above: Performed By: #### C DP, CP, LIPR, TSHX, TREP, HIVCMB, HSVPR #### [address] [address] Progress Worker: Satya Valdez MD #### AHCGEN #### [facility] [address] [place] [address] Progress Worker: Remi Harman MD Protein [Mass/Vol] 6.7 g/dL Normal 6.4-8.3 [facility] Comment on above: Performed By: #### C DP, CP, LIPR, TSHX, TREP, HIVCMB, HSVPR #### [address] [address] Progress Worker: Satya Valdez MD #### AHCGEN #### [facility] [address] [place] [address] [phone] Progress Worker: Remi Harman MD Sodium [Moles/Vol] 140 mmol/L Normal 135-144 [facility] Comment on above: Performed By: #### C DP, CP, LIPR, TSHX, TREP, HIVCMB, HSVPR #### [address] [address] Progress Worker: Satya Valdez MD #### AHCGEN #### [facility] [address] [place], [place] [id number] Progress Worker: Remi Harman MD Urea nitrogen [Mass/Vol] 16 mg/dL Normal 6-20 [facility] Comment on above: Performed By: #### C DP, CP, LIPR, TSHX, TREP, HIVCMB, HSVPR #### [facility] [address] [place] [address] Progress Worker: Satya Valdez MD #### AHCGEN #### [facility] [address] [place] [address] Progress Worker: Remi Harman MD HIV Ag/Abon 05-18-2020 HIV Ag/Ab NONREACTIVE Normal NR [facility] Comment on above: Result Comment: No l aboratory evidence of HIV infection. If acute HIV infection is suspected, consider testing for HIV-1 RNA. Performed By: #### C DP, CP, LIPR, TSHX, TREP, HIVCMB, HSVPR #### [address] [address] Progress Worker: Satya Valdez MD #### AHCGEN #### [facility] [address] [place], [place] [id number] Progress Worker: Reim Hraman MD Hep A Ab,IgMon 05-18-2020 Hep A Ab,IgM NONREACTIVE (NR) [facility] Comment on above: Performed By: #### C DP, CP, LIPR, TSHX, TREP, HIVCMB, HSVPR #### [address] [address] Progress Worker: Satya Valdez MD #### AHCGEN #### [facility] [address] [place], [place] [id number] Progress Worker: Remi Harman MD Note: Responsible Ob observer electrical prospecting: CEEV AUTOFILE (3003) Hep B Core Abon 05-18-2020 Hep B Core Ab NONREACTIVE (NR) [facility] Comment on above: Performed By: #### C DP, CP, LIPR, TSHX, TREP, HIVCMB, HSVPR #### [address] [address] Progress Worker: Satya Valdez MD #### DREAGEN #### [facility] [address] [place] [address] Progress Worker: Remi Harman MD Note: Responsible Ob observer electrical prospecting: CEEV AUTOFILE (3003) Hep B Surf Abon 05-18-2020 Hep B Surf Ab <3.50 Normal <10 [facility] Comment on above: Result Comment: REFERENCE RANGE: <10.0 NON-REACTIVE/NOT IMMUNE >=10.0 REACTIVE/IMMUNE Performed By: #### C DP, CP, LIPR, TSHX, TREP, HIVCMB, HSVPR #### [address] [address] Progress Worker: Satya Valdez MD #### DREAGEN #### [facility] [address] [place] [address] Progress Worker: Remi Harman MD Hep B Surf Agon 05-18-2020 Hep B Surf Ag NONREACTIVE (NR) [facility] Comment on above: Performed By: #### C DP, CP, LIPR, TSHX, TREP, HIVCMB, HSVPR #### [address] [address] Progress Worker: Satya Valdez MD #### AHCGEN #### [facility] [address] [place] [address] Progress Worker: Remi Harman MD Note: Responsible Ob observer electrical prospecting: CEEV AUTOFILE (3003) Lipid Prof, Fastingon 2019 Cholesterol [Mass/Vol] 191 mg/dL Normal <200 [facility] Comment on above: Result Comment: Cholesterol Guidelines: <200 Desirable 200-240 Borderline >240 Undesirable Performed By: #### C DP, CP, LIPR, TSHX, TREP, HIVCMB, HSVPR #### [address] [address] Progress Worker: Satya Valdez MD #### AHCGEN #### [address] [phone] Progress Worker: Remi Harman MD Cholesterol in HDL [Mass/Vol] 55 mg/dL Normal >40 [facility] Comment on above: Result Comment: HDL Guidelines: <40 Undesirable 40-59 Borderline >59 Desirable Performed By: #### C DP, CP, LIPR, TSHX, TREP, HIVCMB, HSVPR #### [address] [address] Progress Worker: Satya Valdez MD #### AHCGEN #### [address] [phone] Progress Worker: Remi Harman MD Cholesterol in LDL [Mass/Vol] 79 mg/dL Normal 0-130 [facility] Comment on above: Result Comment: LDL Guidelines: <100 Desirable 100-129 Near to/above Desirable 130-159 Borderline >159 Undesirable Direct (measured) LDL and calculated LDL are not interchangeable tests. Performed By: #### C DP, CP, LIPR, TSHX, TREP, HIVCMB, HSVPR #### [address] [address] Progress Worker: Satya Valdez MD #### AHCGEN #### [address] [address] Progress Worker: Remi Harman MD Cholesterol.total/Cho lesterol in HDL [Mass ratio] 3.5 {ratio} Normal <5 [facility] Comment on above: Performed By: #### C DP, CP, LIPR, TSHX, TREP, HIVCMB, HSVPR #### [address] [address] Progress Worker: Satya Valdez MD #### AHCGEN #### [facility] [address] [place], [place] [id number] Progress Worker: Remi Harman MD Triglyceride,Fasting 287 mg/dL High <150 [facility] Comment on above: Result Comment: Triglyceride Guidelines: <150 Desirable 150-199 Borderline 200-499 High >499 Very high Based on AHA Guidelines for fasting triglyceride, May 2012. Performed By: #### C DP, CP, LIPR, TSHX, TREP, HIVCMB, HSVPR #### [address] [address] Progress Worker: Satya Valdez MD #### DREAGEN #### [address] [phone] Progress Worker: Remi Harman MD Liver Fibrosis Panelon 05-18 Platelet Cnt,Fibro 293 [facility] Comment on above: Performed By: #### C DP, CP, LIPR, TSHX, TREP, HIVCMB, HSVPR #### [address] [address] Progress Worker: Satya Valdez MD #### AHCGEN #### [address] [address] Progress Worker: Remi Harman MD Note: Responsible Ob observer electrical prospecting: FELIPA CORRAL (129) PSA, Screeningon 05-18-2020 Prostatic Spec. Ag 0.49 ug/L (<4.1) [facility] Comment on above: Result Comment: The Martina ECLIA assay is used. Results obtained with different assay methods cannot be used interchangeably. Performed By: #### C DP, CP, LIPR, TSHX, TREP, HIVCMB, HSVPR #### [address] [phone] Progress Worker: Satya Valdez MD #### AHCGEN #### [facility] [address] [place] [address] Progress Worker: Remi Harman MD Note: The [employer] ECL IA assay is used. Results obtained with different assay methodscannot be used interchangeably.Responsible Observer: CEEV AUTOFILE (2553) TSH w/reflex to FT4on 2019 TSH Qn 0.93 m[IU]/L Normal 0.30-5.00 [facility] Comment on above: Performed By: #### C DP, CP, LIPR, TSHX, TREP, HIVCMB, HSVPR #### [address] [phone] Progress Worker: Satya Valdez MD #### DREAGEN #### [facility] [address] [place] [address] Progress Worker: Remi Harman MD CBCon 05-17-2020 WBC (Bld) [#/Vol] 0.0 10*3/uL 0.0 per 10 0 WBC [place], [place] [facility] 05-17-2020 Cholesterol [Mass/Vol] 191 mg/dL (<200) [facility] Work Phone: Comment on above: Note: Cholesterol Gu idelines:<200 [id number] Borderline>240 UndesirableResponsible Observer: EMETERIO PENALOZA (0623) Comp Metabolic Profon 2019 BUN/CRE Ratio NOT REPORTED (05-08) [facility] Comment on above: Performed By: #### C DP, CP, LIPR, TSHX, TREP, HIVCMB, HSVPR #### [email or web address] [address] [place] [address] [phone] Progress Worker: Satya Valdez MD #### AHCGEN #### [facility] [address] [place] [address] Progress Worker: Remi Harman MD Staging: NOT REPORTED [facility] Comment on above: Performed By: #### C DP, CP, LIPR, TSHX, TREP, HIVCMB, HSVPR #### [facility] [address] [place] [address] [phone] Progress Worker: Satya Valdez MD #### AHCGEN #### [facility] [address] [place] [address] Progress Worker: Remi Harman MD HCV Genotype, PCRon 05-17-20 20 HCV Viral Load NOT REPORTED [facility] Comment on above: Performed By: #### C DP, CP, LIPR, TSHX, TREP, HIVCMB, HSVPR #### [address] [phone] Progress Worker: Satya Valdez MD #### AHCGEN #### [facility] [address] [place] [address] Progress Worker: Remi Harman MD Hematologyon 05-17-2020 Hematocrit (Bld) [Volume fraction] 44.0 % (40.7-50.3) [place], [place] Comment on above: Note: Responsible Ob observer electrical prospecting: XNV AUTOFILE (3018) Hemoglobin (Bld) [Mass/Vol] 14.6 g/dL (13.0-17.0) [place], [place] Comment on above: Note: Responsible Ob observer electrical prospecting: XNV AUTOFILE (3018) MCH (RBC) [Entitic mass] 31.1 pg (25.2-33.5) [place], [place] Comment on above: Note: Responsible Ob observer electrical prospecting: XNV AUTOFILE (3018) MCV (RBC) [Entitic vol] 93.6 fL (82.6-102.9) [place], [place] Comment on above: Note: Responsible Ob observer electrical prospecting: XNV AUTOFILE (3018) Platelets (Bld) [#/Vol] 293 10*3/uL (138-453) [place], [place] Comment on above: Note: Responsible Ob observer electrical prospecting: XNV AUTOFILE (3018) RBC (Bld) [#/Vol] 4.70 10*6/uL (4.21-5.77) [place], [place] Comment on above: Note: Responsible Ob observer electrical prospecting: XNV AUTOFILE (3017) WBC (Bld) [#/Vol] 6.1 10*3/uL (3.5-11.3) [place], [place] Comment on above: Note: Responsible Ob observer electrical prospecting: XNV AUTOFILE (3017) INR Coag (PPP) [Relative time] 1.0 {INR} [place], [place] Comment on above: Therapeutic Range: Moderate Anticoagulant Intensity: INR = 2.0-3.0 High Anticoagulant Intensity: INR = 2.5-3.5 Note: Therapeutic Ra nge:Moderate Anticoagulant Intensity:INR = 2.0-3.0High Anticoagulant Intensity:INR = 2.5-3.5Responsible Observer: AUTOFILE BCS (2005) PT Coag (PPP) [Time] 10.2 s (9.0-12.0) [place], [place] Comment on above: Note: Responsible Ob observer electrical prospecting: AUTOFILE BCS (2005) WBC (Bld) [#/Vol] 0.0 per_100_WBC (0.0) [facility] Work Phone: Comment on above: Note: Responsible Ob observer electrical prospecting: XNV AUTOFILE (3017) Hepatitis A Antibody, IgMon 05-17-2020 HAV IgM IA Qn (S) NONREACTIVE NONREACTIVE [place], [place] Hepatitis B Core Antibody, T otalon 05-17-2020 Hep B Core Total Ab NONREACTIVE NONREACTIVE [place], [place] Hepatitis B Surface Antibody on 05-17-2020 HBV surface Ab (S) [Titer] <3.50 <10 mIU/mL [place], [place] Comment on above: REFERENCE RANGE: <10.0 NON-REACTIVE/NOT IMMUNE >=10.0 REACTIVE/IMMUNE Hepatitis B Surface Antigeno n 05-17-2020 Hepatitis B Surface Ag NONREACTIVE NONREACTIVE [place] Lipid Prof, Fastingon 2019 Cholesterol in VLDL [Mass/Vol] NOT REPORTED Normal 09-17 [facility] Comment on above: Performed By: #### C DP, CP, LIPR, TSHX, TREP, HIVCMB, HSVPR #### [facility] [address] [place] [address] Progress Worker: Satya Valdez MD #### AHCGEN #### [facility] [address] [place] [address] Progress Worker: Remi Harman MD Metabolic Panelon 05-17-2020 Albumin [Mass/Vol] 4.4 g/dL (3.5-5.2) [facility] Work Phone: Comment on above: Note: Responsible Ob observer electrical prospecting: EMETERIO PENALOZA (5266) ALT [Catalytic activity/Vol] 50 U/L High (5-41) [facility] Work Phone: Comment on above: Note: Responsible Ob observer electrical prospecting: EMETERIO PENALOZA (960) Anion gap [Moles/Vol] 15 mmol/L (9-17) [facility] Work Phone: Comment on above: Note: Responsible Ob observer electrical prospecting: EMETERIO PENALOZA (6917) AST [Catalytic activity/Vol] 37 U/L (<40) [facility] Work Phone: Comment on above: Note: Responsible Ob observer electrical prospecting: EMETERIO PENALOZA (976) Bilirubin [Mass/Vol] 0.35 mg/dL (0.3-1.2) [facility] Work Phone: Comment on above: Note: Responsible Ob observer electrical prospecting: EMETERIO PENALOZA (957) Calcium [Mass/Vol] 9.6 mg/dL (8.6-10.4) [facility] Work Phone: Comment on above: Note: Responsible Ob observer electrical prospecting: EMETERIO PENALOZA (8287) Chloride [Moles/Vol] 101 mmol/L (98-107) [facility] Work Phone: Comment on above: Note: Responsible Ob observer electrical prospecting: EMETERIOSHANA PENALOZA (3588) CO2 [Moles/Vol] 24 mmol/L (20-31) [facility] Work Phone: Comment on above: Note: Responsible Ob observer electrical prospecting: EMETERIO PENALOZA (383) Creatinine [Mass/Vol] 1.26 mg/dL High (0.70-1.20) [facility] Work Phone: Comment on above: Note: Responsible Ob observer electrical prospecting: EMETERIO PENALOZA (665) Glucose [Mass/Vol] 85 mg/dL (70-99) [facility] Work Phone: Comment on above: Note: Responsible Ob observer electrical prospecting: EMETERIO TREMAINE (521) Potassium [Moles/Vol] 4.2 mmol/L (3.7-5.3) [facility] Work Phone: Comment on above: Note: Responsible Ob observer electrical prospecting: EMETERIO PENALOZA (953) Protein [Mass/Vol] 6.7 g/dL (6.4-8.3) [facility] Work Phone: Comment on above: Note: Responsible Ob observer electrical prospecting: EMETERIO PENALOZA (970) Sodium [Moles/Vol] 140 mmol/L (135-144) [facility] Work Phone: Comment on above: Note: Responsible Ob observer electrical prospecting: EMETERIO PENALOZA (628) Urea nitrogen [Mass/Vol] 16 mg/dL (6-20) [facility] Work Phone: Comment on above: Note: Responsible Ob observer electrical prospecting: EMETERIO PENALOZA (8477) Urea nitrogen [Mass/Vol] 17 mg/dL (7-20) [facility] Work Phone: Comment on above: Note: Responsible Ob observer electrical prospecting: [facility] (0603) Otheron 05-17-2020 HIV Ag/Ab NONREACTIVE (NR) [facility] [place] Comment on above: No laboratory eviden ce of HIV infection. If acute HIV infection is suspected, consider testing for HIV-1 RNA. Note: No laboratory evidence of HIV infection. If acute HIV infection is suspected,consider testing for HIV-1 RNA.Responsible Observer: BURT SCHMIDT (4567) Erythrocyte distribution width (RBC) [Ratio] 12.8 % (11.8-14.4) [place], [place] Comment on above: Note: Responsible Ob observer electrical prospecting: XNV AUTOFILE (3018) MCHC (RBC) [Mass/Vol] 33.2 g/dL (28.4-34.8) [place], [place] Comment on above: Note: Responsible Ob observer electrical prospecting: XNV AUTOFILE (3018) Platelet mean volume (Bld) [Entitic vol] 10.3 fL (8.1-13.5) [place], [place] Comment on above: Note: Responsible Ob observer electrical prospecting: XNV AUTOFILE (3018) (cont.) See Note [facility] Work Phone: Comment on above: Note: Average GFR fo r 30-39 years old:107 mL/min/1.73sq mChronic Kidney Disease:<60 mL/min/1.73sq mKidney failure:<15 mL/min/1.73sq meGFR calculated using average adult body mass. Additional eGFR calculatoravailable at:http://www.[employer]/multiple_crcl_2012.htmResponsible Observer: EMETERIO PENALOZA (6150) A2 Macroglob, Fibro 240 mg/dL (131-293) [facility] Work Phone: Comment on above: Note: Responsible Ob observer electrical prospecting: LAB [facility] (0603) Albumin/Glob Ratio 1.9 (1.0-2.5) [facility] Work Phone: Comment on above: Note: Responsible Ob observer electrical prospecting: EMETERIO PENALOZA ([id number]) Alkaline Phos 63 U/L (40-129) [facility] Work Phone: Comment on above: Note: Responsible Ob observer electrical prospecting: EMETERIO PENALOZA (1129) ALT, Fibro 58 U/L High (5-50) [facility] Work Phone: Comment on above: Note: Responsible Ob observer electrical prospecting: LAB [facility] (0603) Amphetamine <20 ng/mL [facility] Work Phone: Comment on above: Note: (NOTE)INTERPRE [...] determined by [facility]. See Compliance Statement B: [email or web address]/CSResponsible Observer: LAB [facility] (0603) Amphetamines, S/P Positive (Cutoff 20) [facility] Work Phone: Comment on above: Note: (NOTE)If the s creen is positive, then confirmation by mass spectrometrywill be added. Additional charges will apply.Unconfirmed positive may be useful for medical purposes, but doesnot meet forensic standards.Responsible Observer: [facility] (0603) AST, Fibro 38 U/L (9-50) [facility] Work Phone: Comment on above: Note: Responsible Ob observer electrical prospecting: LAB [facility] (0603) Barbiturates, S/P Negative (Cutoff 50) [facility] Work Phone: Comment on above: Note: Responsible Ob observer electrical prospecting: [facility] (0603) Benzodiazepines, S/P Negative (Cutoff 50) [facility] Work Phone: Comment on above: Note: Responsible Ob observer electrical prospecting: LAB [facility] (0603) Buprenorphine, S/P Negative (Cutoff 1) [facility] Work Phone: Comment on above: Note: Responsible Ob observer electrical prospecting: LAB [facility] (0603) Cannabinoids, S/P 62 ng/mL [facility] Work Phone: Comment on above: Note: (NOTE)INTERPRE TIVE INFORMATION: THC Metabolite, Serum orPlasma, QuantitativeMethodology: Quantitative Liquid Chromatography-Tandem MassSpectrometry.Positive cutoff: 5 ng/mLFor medical purposes only; not valid for forensic use.The drug analyte detected in this assay, 9-carboxy THC, is ametabolite of axetw-2-irghpyghwdcgyqhclfpv (THC). Detection of9-carboxy THC suggests use of, or exposure to, a productcontaining THC. This test cannot distinguish between prescribedor non-prescribed forms of THC, nor can it distinguish betweenactive or passive use. The plasma half-life for 9-carboxy THCmetabolite is estimated to range from 4-12 hours.Test developed and characteristics determined by [facility]. See Compliance Statement B: [employer]/CSPerformed By: VISENZE[address] [place] [address] [id number] Director: Terese Muniz MDResponsible Observer: LAB ALEJANDROCHANTEL (9217) Cholesterol,HDL 55 mg/dL (>40) [facility] Work Phone: Comment on above: Note: HDL Guidelines :<40 Ndvemexsxta98-59 Borderline>59 DesirableResponsible Observer: EMETERIO PENALOZA (4920) Cholesterol,LDL 79 mg/dL (0-130) [facility] Work Phone: Comment on above: Note: LDL Guidelines :<100 Urerigybq641-850 Near to/above Oeyivdbkw724-734 Borderline>159 UndesirableDirect (measured) LDL and calculated LDL are not interchangeable tests.Responsible Observer: EMETERIO PENALOZA (5179) Cholesterol,VLDL NOT REPORTED mg/dL (1-30) [facility] Work Phone: Cholesterol.total/Cho lesterol in HDL [Mass ratio] 3.5 {ratio} (<5) [facility] Work Phone: Comment on above: Note: Responsible Ob observer electrical prospecting: EMETERIO PENALOZA (4696) CirrhM Patient Score 0 [facility] Work Phone: Comment on above: Note: Responsible Ob observer electrical prospecting: LAB RIAN (0603) Cocaine, Serum/Plas Negative (Cutoff 20) [facility] Work Phone: Comment on above: Note: Responsible Ob observer electrical prospecting: LAB RIAN (0603) Comment See Note [facility] Work Phone: Comment on above: Note: (NOTE)INTERPRE [...] forensic use.Test developed and characteristics determined by [facility]. See Compliance Statement B: [employer]/CSPerformed By: VISENZE[address] [place] [address] [id number] Director: Terese Muniz MDResponsible Observer: VALENTIN MODI (06) EER Fibro Rpt See Note [facility] Work Phone: Comment on above: Note: (NOTE)Access A RUP Enhanced Report using either link below:-Direct access: [email or web address] Username, Password: [email or web address] LabsUsername: [email or web address]: [email or web address] Observer: LAB RIAN (06) Fibro Interpretation See Report [facility] Work Phone: Comment on above: Note: (NOTE)[17][16] INTERPRETIVE INFORMATION: Fibrometer InterpretationCalculations for the final report are based on accurate data forage, gender, and platelet count. If any of this information needsto be corrected, please contact [facility] to request arecalculation. Client Services may be contacted at .The Radiation Monitoring [employer] FibroMeter profile serves as a surrogate marker [...] instrument/reagent combinations. Test developedand characteristics determined by [facility]. SeeCompliance Statement B: [employer]/CSPerformed By: VISENZE[address] [place] [address] [id number] Director: Terese Muniz, MDResponsible Observer: VALENTIN MODI (06) Fibro Metavir Class SEE NOTE [facility] Work Phone: Comment on above: Note: [...] LAB [facility] (0603) FibroM Patient Score 0.19 [facility] Work Phone: Comment on above: Note: Responsible Ob observer electrical prospecting: LAB R[facility] (0603) GFR, Amer >60 mL/min (>60) [facility] Work Phone: Comment on above: Note: Responsible Ob observer electrical prospecting: EMETERIO PENALOZA (2447) GFR,non Amer >60 mL/min (>60) [facility] Work Phone: Comment on above: Note: Responsible Ob observer electrical prospecting: EMETERIO PENALOZA (0965) GGT, Fibro 26 U/L (7-51) [facility] Work Phone: Comment on above: Note: Responsible Ob observer electrical prospecting: LAB [facility] (0603) HCV Genotype, PCR 2b [facility] Work Phone: Comment on above: Note: (NOTE)INTERPRE TIVE INFORMATION: Hepatitis C GenotypingHepatitis C Viral RNA is tested using reverse transcriptionpolymerase chain reaction (RT-PCR) to amplify a specific portionof the 5' untranslated region (5' UTR) of the viral genome. Theamplified nucleic acid is sequenced bi-directionally usingdye-terminator chemistry ([employer]). Sequencing data is compared to adatabase of [...] Type 1.Test developed and characteristics determined by [facility]. See Compliance Statement B: [employer]/CSPerformed By: VISENZE[address] [place] [address] [id number] Director: Terese Muniz MDResponsible Observer: LAB [facility] (602) HCV RNA,Quant,PCR See Note [facility] Work Phone: Comment on above: Note: Specimen Descr iption .PLASMASpecial Requests NOT REPORTEDDirect Exam HCV RNA DETECTED [id number] IU/ML (6.94 LOG IU/ML) This test is [...] DepartmentReport Status FINAL 05/19/2020Responsible Observer: OSITO ARNOLD (2265) Hep B Surf Ab <3.50 mIU/mL (<10) [facility] Work Phone: Comment on above: Note: REFERENCE RANG E:<10.0 NON-REACTIVE/NOT IMMUNE>=10.0 REACTIVE/IMMUNEResponsible Observer: CEEV AUTOFILE (8350) InflaM Metavir Class A1/A2 [facility] Work Phone: Comment on above: Note: (NOTE)INTERPRE TIVE INFORMATION: InflaMeter Metavir ClassificationInflaMeter (activity score) commentsA0/A1 Equal probability between A0 and A1A1/A2 Equal probability between A1 and A2A2/A3 Equal probability between A2 and [id number] Observer: LAB RIAN (06) InflaM Patient Score 0.28 [facility] Work Phone: Comment on above: Note: Responsible Ob observer electrical prospecting: LAB [facility] (0603) M.dioxyamphetamine <20 ng/mL [facility] Work Phone: Comment on above: Note: Responsible Ob observer electrical prospecting: LAB [facility] (06) M.dioxyethylamphet <20 ng/mL [facility] Work Phone: Comment on above: Note: (NOTE)Performe d By: VISENZE[address] [place] [address] [id number] Director: DAMON Leeespkit Observer: LAB ALEJANDRO (06) M.dioxymethylamphet <20 ng/mL [facility] Work Phone: Comment on above: Note: Responsible Ob observer electrical prospecting: LAB [facility] (06) Methadone, S/P Negative (Cutoff 25) [facility] Work Phone: Comment on above: Note: Responsible Ob observer electrical prospecting: LAB [facility] (06) Methamphetamine 462 ng/mL [facility] Work Phone: Comment on above: Note: (NOTE)Consiste nt with use of a drug containing methamphetamine.Methamphetamine is metabolized to amphetamine. Amphetamine andmethamphetamine exist in d- and l-isomeric forms. These forms arenot distinguished by this test. Isomeric separation is availableseparately for an additional charge.Responsible Observer: LAB [facility] (06) Methamphetamine,S/P Positive (Cutoff 20) [facility] Work Phone: Comment on above: Note: (NOTE)If the s creen is positive, then confirmation by mass spectrometrywill be added. Additional charges will apply.Unconfirmed positive may be useful for medical purposes, but doesnot meet forensic standards.Responsible Observer: LAB [facility] (06) Opiates, Serum/Plas Negative (Cutoff 20) [facility] Work Phone: Comment on above: Note: Responsible Ob observer electrical prospecting: LAB [facility] (0603) Oxycodone, S/P Negative (Cutoff 20) [facility] Work Phone: Comment on above: Note: Responsible Ob observer electrical prospecting: [facility] (0603) Performing Lab: see note [facility] Work Phone: Comment on above: Note: [facility] [address] [facility] [address] Note: [facility] [address] [facility] [address] Note: [facility] [address] [facility] [address] [facility] [address] [facility] [address] Phencyclidine, S/P Negative (Cutoff 10) [facility] Work Phone: Comment on above: Note: Responsible Ob observer electrical prospecting: [facility] (06) Prothrombin Index 103 % (90-120) [facility] Work Phone: Comment on above: Note: Responsible Ob observer electrical prospecting: [facility] (0603) Reported Physicians See Note [facility] Work Phone: Comment on above: Note: Reported Physi cians:Ordering: JasonEscobarAttending: Neli GomezieReferring: Escobar Gomez THC, Serum/Plasma Positive (Cutoff 20) [facility] Work Phone: Comment on above: Note: (NOTE)If the s creen is positive, then confirmation by mass spectrometrywill be added. Additional charges will apply.Unconfirmed positive may be useful for medical purposes, but doesnot meet forensic standards.Responsible Observer: [facility] (0603) Thyroid Stim. Horm. 0.93 mIU/L (0.30-5.00) [facility] Work Phone: Comment on above: Note: Responsible Ob observer electrical prospecting: EMETERIO PENALOZA (4278) Triglyceride,Fasting 287 mg/dL High (<150) [facility] Work Phone: Comment on above: Note: Triglyceride G uidelines:<150 Ygzastwrb492-482 Feipynadph233-940 High>499 Very highBased on AHA Guidelines for fasting triglyceride, May 2012.Responsible Observer: EMETERIO PENALOZA (2597) PTon 05-17-2020 INR Coag (PPP) [Relative time] 1.0 {INR} Normal [facility] Comment on above: Result Comment: Therapeutic Range: Moderate Anticoagulant Intensity: INR = 2.0-3.0 High Anticoagulant Intensity: INR = 2.5-3.5 Performed By: #### C DP, CP, LIPR, TSHX, TREP, HIVCMB, HSVPR #### [facility] [address] [place] [address] [phone] Progress Worker: Satya Valdez MD #### AHCGEN #### [facility] [email or web address] [address] [place], [place] [id number] Progress Worker: Remi Harman MD PT Coag (PPP) [Time] 10.2 s Normal 9.0-12.0 [facility] Comment on above: Performed By: #### C DP, CP, LIPR, TSHX, TREP, HIVCMB, HSVPR #### [facility] [address] [place] [address] [phone] Progress Worker: Satya Valdez MD #### AHCGEN #### [facility] [employer] [address] [place], [place] [id number] Progress Worker: Remi Harman MD CT ABDOMEN PELVIS W IV CONTR AST Additional Contrast? Oralon 01-22-2020 1. No acute intra-abdominal abnormality. 2. No acute intrapelvic abnormality. [facility], [place] EXAMINATION: CT OF T ABDOMEN AND [...] Tissues: No acute bony abnormalities are noted. [place], [place], Mhpn Incoming Radiant Results From [facility] - 01/22/2020 5:08 PM EDT EXAMINATION: CT [...] intra-abdominal abnormality. 2. No acute intrapelvic abnormality. [place], [place] HCV Genotype, PCRon 06-01-20 19 HCV Genotype, PCR 2b Normal [facility] Comment on above: Result Comment: (NOT E) INTERPRETIVE INFORMATION: Hepatitis C Genotyping Hepatitis C Viral RNA is tested using reverse 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 polymerase chain reaction (RT-PCR) to amplify a specific portion of the 5' untranslated region (5' UTR) of the viral genome. The amplified nucleic acid is sequenced bi-directionally using dye-terminator chemistry ([employer]rogmetrics). Sequencing data is compared to a database [...] 1. Test developed and characteristics determined by [facility]. See Compliance Statement B: [employer]/ Performed by [facility], [address] [place] [id number] www.[employer], Remi Harman MD, Lab. Director Performed By: #### C DP, CP, LIPR, TSHX, TREP, HIVCMB, HSVPR #### [facility] [address] [address] Progress Worker: Satya Valdez MD #### [facility] #### [facility] [address] [place] [phone] Progress Worker: Remi Harman MD HCV RNA,Quant,PCRon 05-29-20 19 HCV RNA,Quant,PCR Specimen Description .PLASMA Special Requests NOT REPORTED Direct Exam HCV RNA DETECTED [id number] IU/ML (6.49 LOG IU/ML) This test is [...] appropriate Health Department Report Status FINAL 05/29/2019 [facility] Comment on above: Performed By: #### C DP, CP, LIPR, TSHX, TREP, HIVCMB, HSVPR #### [facility] [address] [place] [address] Progress Worker: Satya Valdez MD #### AHCGEN #### [address] [address] Progress Worker: Remi Harman MD Herpes Profileon 05-28-2019 Herpes Type I, IgG 6.81 High <0.91 [facility] Comment on above: Result Comment: Reference Range: <=0.90 Negative 0.91-1.09 Equivocal >=1.10 Positive Performed By: #### C DP, CP, LIPR, TSHX, TREP, HIVCMB, HSVPR #### [place] [address] Progress Worker: Satya Valdez MD #### AHCGEN #### [address] [address] Progress Worker: Remi Harman MD Herpes Type I/II,IgM 1.05 High <0.91 [facility] Comment on above: Result Comment: Reference [...] CP, LIPR, TSHX, TREP, HIVCMB, HSVPR #### [address] [address] Progress Worker: Satya Valdez MD #### AHCGEN #### [address] [address] Progress Worker: Remi Harman MD Herpes Type II, IgG 0.76 Normal <0.91 [facility] Comment on above: Result Comment: Reference Range: <=0.90 Negative 0.91-1.09 Equivocal >=1.10 Positive Performed By: #### C DP, CP, LIPR, TSHX, TREP, HIVCMB, HSVPR #### [address] [address] Progress Worker: Satya Valdez MD #### AHCGEN #### [facility] [address] [place] [address] Progress Worker: Remi Harman MD CBC with Diffon 05-27-2019 Abs. Basophil 0.05 k/uL Normal 0.00-0.20 [facility] Comment on above: Performed By: #### C DP, CP, LIPR, TSHX, TREP, HIVCMB, HSVPR #### [address] [address] Progress Worker: Satya Valdez MD #### AHCGEN #### [facility] [address] [place] [address] Progress Worker: Remi Harman MD Abs.Imm.Granulocyte <0.03 Normal 0.00-0.30 [facility] Comment on above: Performed By: #### C DP, CP, LIPR, TSHX, TREP, HIVCMB, HSVPR #### [address] [address] Progress Worker: Satya Valdez MD #### AHCGEN #### [facility] [address] [place] [address] Progress Worker: Remi Harman MD Abs.Neutrophil (Seg) 3.47 k/uL Normal 1.50-8.10 [facility] Comment on above: Performed By: #### C DP, CP, LIPR, TSHX, TREP, HIVCMB, HSVPR #### [address] [address] Progress Worker: Satya Valdez MD #### AHCGEN #### [facility] [address] [place], [place] [id number] Progress Worker: Remi Harman MD Basophils/100 WBC (Bld) 1 % Normal 0-2 [facility] Comment on above: Performed By: #### C DP, CP, LIPR, TSHX, TREP, HIVCMB, HSVPR #### [address] [address] Progress Worker: Satya Valdez MD #### AHCGEN #### [facility] [address] [place], [place] [id number] Progress Worker: Remi Harman MD Eosinophils (Bld) [#/Vol] 0.25 10*3/uL Normal 0.00-0.44 [facility] Comment on above: Performed By: #### C DP, CP, LIPR, TSHX, TREP, HIVCMB, HSVPR #### [place] [address] Progress Worker: Satya Valdez MD #### AHCGEN #### [facility] [address] [place] [address] [phone] Progress Worker: Remi Harman MD Eosinophils/100 WBC (Bld) 4 % Normal 1-4 [facility] Comment on above: Performed By: #### C DP, CP, LIPR, TSHX, TREP, HIVCMB, HSVPR #### [address] [address] Progress Worker: Satya Valdez MD #### AHCGEN #### [facility] [address] [place], [place] [id number] Progress Worker: Remi Harman MD Erythrocyte distribution width (RBC) [Ratio] 12.4 % Normal 11.8-14.4 [facility] Comment on above: Performed By: #### C DP, CP, LIPR, TSHX, TREP, HIVCMB, HSVPR #### [address] [address] Progress Worker: Satya Valdez MD #### AHCGEN #### [facility] [address] [place], [place] [id number] Progress Worker: Remi Harman MD Hematocrit (Bld) [Volume fraction] 48.5 % Normal 40.7-50.3 [facility] Comment on above: Performed By: #### C DP, CP, LIPR, TSHX, TREP, HIVCMB, HSVPR #### [facility] [address] [place] [address] Progress Worker: Satya Valdez MD #### AHCGEN #### [facility] [address] [place], [place] [id number] Progress Worker: Remi Harman MD Hemoglobin (Bld) [Mass/Vol] 16.0 g/dL Normal 13.0-17.0 [facility] Comment on above: Performed By: #### C DP, CP, LIPR, TSHX, TREP, HIVCMB, HSVPR #### [place] [address] Progress Worker: Satya Valdez MD #### AHCGEN #### [facility] [address] [place], [place] [id number] Progress Worker: Remi Harman MD Immature granulocytes (Bld) [#/Vol] 0 % Normal 0 [facility] Comment on above: Performed By: #### C DP, CP, LIPR, TSHX, TREP, HIVCMB, HSVPR #### [address] [address] Progress Worker: Satya Valdez MD #### AHCGEN #### [facility] [address] [place], [place] [id number] Progress Worker: Remi Harman MD Lymphocytes (Bld) [#/Vol] 2.73 10*3/uL Normal 1.10-3.70 [facility] Comment on above: Performed By: #### C DP, CP, LIPR, TSHX, TREP, HIVCMB, HSVPR #### [address] [address] Progress Worker: Satya Valdez MD #### AHCGEN #### [address] [id number] Progress Worker: Remi Harman MD Lymphocytes/100 WBC (Bld) 38 % Normal 24-43 [facility] Comment on above: Performed By: #### C DP, CP, LIPR, TSHX, TREP, HIVCMB, HSVPR #### [place] [address] Progress Worker: Satya Valdez MD #### [facility] #### [address] [id number] Progress Worker: Remi Harman MD MCH (RBC) [Entitic mass] 30.5 pg Normal 25.2-33.5 [facility] Comment on above: Performed By: #### C DP, CP, LIPR, TSHX, TREP, HIVCMB, HSVPR #### [place] [address] Progress Worker: Satya Valdez MD #### AHCGEN #### [address] [phone] Progress Worker: Remi Harman MD MCHC (RBC) [Mass/Vol] 33.0 g/dL Normal 28.4-34.8 [facility] Comment on above: Performed By: #### C DP, CP, LIPR, TSHX, TREP, HIVCMB, HSVPR #### [address] [address] Progress Worker: Satya Valdez MD #### AHCGEN #### [facility] [address] [place], [place] [id number] Progress Worker: Remi Harman MD MCV (RBC) [Entitic vol] 92.4 fL Normal 82.6-102.9 [facility] Comment on above: Performed By: #### C DP, CP, LIPR, TSHX, TREP, HIVCMB, HSVPR #### [address] [address] Progress Worker: Satya Valdez MD #### AHCGEN #### [facility] [address] [place], [place] [id number] Progress Worker: Remi Harman MD Monocytes (Bld) [#/Vol] 0.61 10*3/uL Normal 0.10-1.20 [facility] Comment on above: Performed By: #### C DP, CP, LIPR, TSHX, TREP, HIVCMB, HSVPR #### [address] [address] Progress Worker: Satya Valdez MD #### AHCGEN #### [facility] [address] [place], [place] [phone] Progress Worker: Remi Harman MD Monocytes/100 WBC (Bld) 9 % Normal 3-12 [facility] Comment on above: Performed By: #### C DP, CP, LIPR, TSHX, TREP, HIVCMB, HSVPR #### [address] [address] Progress Worker: Satya Valdez MD #### AHCGEN #### [facility] [address] [place], [place] [id number] Progress Worker: Remi Harman MD Neutrophil (Seg) 48 % Normal 36-65 [facility] Comment on above: Performed By: #### C DP, CP, LIPR, TSHX, TREP, HIVCMB, HSVPR #### [address] [address] Progress Worker: Satya Valdez MD #### AHCGEN #### [facility] [address] [place] [address] Progress Worker: Remi Harman MD NRBC Automated 0.0 per 100 WBC Normal 0.0 [facility] Comment on above: Performed By: #### C DP, CP, LIPR, TSHX, TREP, HIVCMB, HSVPR #### [address] [address] Progress Worker: Satya Valdez MD #### AHCGEN #### [facility] [address] [place], [place] [id number] Progress Worker: Remi Harman MD Platelet mean volume (Bld) [Entitic vol] 9.9 fL Normal 8.1-13.5 [facility] Comment on above: Performed By: #### C DP, CP, LIPR, TSHX, TREP, HIVCMB, HSVPR #### [address] [address] Progress Worker: Satya Valdez MD #### AHCGEN #### [facility] [address] [place] [address] Progress Worker: Remi Harman MD Platelets (Bld) [#/Vol] 370 10*3/uL Normal 138-453 [facility] Comment on above: Performed By: #### C DP, CP, LIPR, TSHX, TREP, HIVCMB, HSVPR #### [address] [address] Progress Worker: Satya Valdez MD #### AHCGEN #### [facility] [address] [place] [address] Progress Worker: Remi Harman MD RBC (Bld) [#/Vol] 5.25 10*6/uL Normal 4.21-5.77 [facility] Comment on above: Performed By: #### C DP, CP, LIPR, TSHX, TREP, HIVCMB, HSVPR #### [address] [address] Progress Worker: Satya Valdez MD #### AHCGEN #### [facility] [address] [place] [address] Progress Worker: Remi Harman MD WBC (Bld) [#/Vol] 7.1 10*3/uL Normal 3.5-11.3 [facility] Comment on above: Performed By: #### C DP, CP, LIPR, TSHX, TREP, HIVCMB, HSVPR #### [address] [address] Progress Worker: Satya Valdez MD #### AHCGEN #### [address] [address] Progress Worker: Remi Harman MD Auto Diff Performed NOT REPORTED Normal [facility] Comment on above: Performed By: #### C DP, CP, LIPR, TSHX, TREP, HIVCMB, HSVPR #### [address] [address] Progress Worker: Satya Valdez MD #### AHCGEN #### [facility] [address] [place] [address] Progress Worker: Remi Harman MD Platelets (Bld) [#/Vol] NOT REPORTED Normal [facility] Comment on above: Performed By: #### C DP, CP, LIPR, TSHX, TREP, HIVCMB, HSVPR #### [address] [address] Progress Worker: Satya Valdez MD #### AHCGEN #### [facility] [address] [place] [address] Progress Worker: Remi Harman MD RBC morphology finding Nom (Bld) NOT REPORTED Normal [facility] Comment on above: Performed By: #### C DP, CP, LIPR, TSHX, TREP, HIVCMB, HSVPR #### [address] [id number] Progress Worker: Satya Valdez MD #### AHCGEN #### [facility] [address] [place] [address] Progress Worker: Remi Harman MD WBC Morphology NOT REPORTED Normal [facility] Comment on above: Performed By: #### C DP, CP, LIPR, TSHX, TREP, HIVCMB, HSVPR #### [address] [phone] Progress Worker: Satya Valdez MD #### AHCGEN #### [facility] [address] [place] [phone] Progress Worker: Remi Harman MD Chlamydia/GC DNA, Uron 05-27 Chlamydia Probe, Ur Negative Normal NEG [facility] Comment on above: Result Comment: CHLA MYDIA [...] Performed By: #### U CGP, TRCMOL #### [address] [phone] Progress Worker: Satya Valdez MD Gonorrhea Probe, Ur Negative Normal NEG [facility] Comment on above: Result Comment: NEIS SERIA [...] Performed By: #### U CGP, TRCMOL #### [address] [phone] Progress Worker: Satya Valdez MD Comp Metabolic Profon 2018 (cont.) Normal [facility] Comment on above: Result Comment: Aver age GFR for 30-39 years old: 107 mL/min/1.73sq m Chronic Kidney Disease: <60 mL/min/1.73sq m Kidney failure: <15 mL/min/1.73sq m eGFR calculated using average adult body mass. Additional eGFR calculator available at: http://www.Compario.AgileNano/multiple_crcl_2012.htm Performed By: #### C DP, CP, LIPR, TSHX, TREP, HIVCMB, HSVPR #### [address] [address] Progress Worker: Satya Valdez MD #### AHIshmaelGEN #### [address] [address] Progress Worker: Remi Harman MD Albumin [Mass/Vol] 4.4 g/dL Normal 3.5-5.2 [facility] Comment on above: Performed By: #### C DP, CP, LIPR, TSHX, TREP, HIVCMB, HSVPR #### [address] [phone] Progress Worker: Satya Valdez MD #### AHCGEN #### [facility] [address] [place] [address] Progress Worker: Remi Harman MD Albumin/Globulin [Mass ratio] 1.5 {ratio} Normal 1.0-2.5 [facility] Comment on above: Performed By: #### C DP, CP, LIPR, TSHX, TREP, HIVCMB, HSVPR #### [address] [address] Progress Worker: Satya Valdez MD #### AHCGEN #### [facility] [address] [place] [phone] Progress Worker: Remi Harman MD Alkaline Phos 71 U/L Normal 40-129 [facility] Comment on above: Performed By: #### C DP, CP, LIPR, TSHX, TREP, HIVCMB, HSVPR #### [address] [address] Progress Worker: Satya Valdez MD #### AHCGEN #### [address] [phone] Progress Worker: Remi Harman MD ALT [Catalytic activity/Vol] 43 U/L High 5-41 [facility] Comment on above: Performed By: #### C DP, CP, LIPR, TSHX, TREP, HIVCMB, HSVPR #### [address] [address] Progress Worker: Satya Valdez MD #### AHCGEN #### [address] [phone] Progress Worker: Remi Harman MD Anion gap [Moles/Vol] 12 mmol/L Normal 9-17 [facility] Comment on above: Performed By: #### C DP, CP, LIPR, TSHX, TREP, HIVCMB, HSVPR #### [address] [address] Progress Worker: Satya Valdez MD #### AHCGEN #### [facility] [address] [place] [address] [phone] Progress Worker: Remi Harman MD AST [Catalytic activity/Vol] 37 U/L Normal <40 [facility] Comment on above: Performed By: #### C DP, CP, LIPR, TSHX, TREP, HIVCMB, HSVPR #### [address] [address] Progress Worker: Satya Valdez MD #### AHCGEN #### [address] [address] Progress Worker: Remi Harman MD Bilirubin Ql (U) 0.38 mg/dL Normal 0.3-1.2 [facility] Comment on above: Performed By: #### C DP, CP, LIPR, TSHX, TREP, HIVCMB, HSVPR #### [address] [address] Progress Worker: Satya Valdez MD #### AHCGEN #### [address] [address] Progress Worker: Remi Harman MD Calcium [Mass/Vol] 9.7 mg/dL Normal 8.6-10.4 [facility] Comment on above: Performed By: #### C DP, CP, LIPR, TSHX, TREP, HIVCMB, HSVPR #### [address] [address] Progress Worker: Satya Valdez MD #### AHCGEN #### [address] [phone] Progress Worker: Remi Harman MD Chloride [Moles/Vol] 100 mmol/L Normal 98-107 [facility] Comment on above: Performed By: #### C DP, CP, LIPR, TSHX, TREP, HIVCMB, HSVPR #### [address] [address] Progress Worker: Satya Valdez MD #### AHCGEN #### [facility] [address] [place] [address] Progress Worker: Remi Harman MD CO2 [Moles/Vol] 27 mmol/L Normal 20-31 [facility] Comment on above: Performed By: #### C DP, CP, LIPR, TSHX, TREP, HIVCMB, HSVPR #### [facility] [address] [place] [phone] Progress Worker: Satya Valdez MD #### AHCGEN #### [facility] [address] [place] [address] Progress Worker: Remi Harman MD Creatinine [Mass/Vol] 1.28 mg/dL High 0.70-1.20 [facility] Comment on above: Performed By: #### C DP, CP, LIPR, TSHX, TREP, HIVCMB, HSVPR #### [address] [address] Progress Worker: Satya Valdez MD #### AHCGEN #### [facility] [address] [place] [address] Progress Worker: Remi Harman MD GFR, Amer >60 Normal >60 [facility] Comment on above: Performed By: #### C DP, CP, LIPR, TSHX, TREP, HIVCMB, HSVPR #### [address] [address] Progress Worker: Satya Valdez MD #### AHCGEN #### [facility] [address] [place] [address] Progress Worker: Remi Harman MD GFR,non Amer >60 Normal >60 [facility] Comment on above: Performed By: #### C DP, CP, LIPR, TSHX, TREP, HIVCMB, HSVPR #### [facility] [address] [place] [address] Progress Worker: Satya Valdez MD #### AHCGEN #### [facility] [address] [place], [place] [phone] Progress Worker: Remi Harman MD Glucose [Mass/Vol] 77 mg/dL Normal 70-99 [facility] Comment on above: Performed By: #### C DP, CP, LIPR, TSHX, TREP, HIVCMB, HSVPR #### [facility] [address] [place] [phone] Progress Worker: Satya Valdez MD #### AHCGEN #### [facility] [address] [place] [address] [phone] Progress Worker: Remi Harman MD Potassium [Moles/Vol] 3.9 mmol/L Normal 3.7-5.3 [facility] Comment on above: Performed By: #### C DP, CP, LIPR, TSHX, TREP, HIVCMB, HSVPR #### [address] [address] Progress Worker: Satya Valdez MD #### AHCGEN #### [facility] [address] [place], [place] [phone] Progress Worker: Remi Harman MD Protein [Mass/Vol] 7.3 g/dL Normal 6.4-8.3 [facility] Comment on above: Performed By: #### C DP, CP, LIPR, TSHX, TREP, HIVCMB, HSVPR #### [facility] [address] [place] [address] Progress Worker: Satya Valdez MD #### AHCGEN #### [facility] [address] [place] [address] Progress Worker: Remi Harman MD Sodium [Moles/Vol] 139 mmol/L Normal 135-144 [facility] Comment on above: Performed By: #### C DP, CP, LIPR, TSHX, TREP, HIVCMB, HSVPR #### [address] [address] Progress Worker: Satya Valdez MD #### AHCGEN #### [facility] [address] [place] [phone] Progress Worker: Remi Harman MD Urea nitrogen [Mass/Vol] 9 mg/dL Normal 6-20 [facility] Comment on above: Performed By: #### C DP, CP, LIPR, TSHX, TREP, HIVCMB, HSVPR #### [address] [address] Progress Worker: Satya Valdez MD #### AHCGEN #### [address] [phone] Progress Worker: Remi Harman MD BUN/CRE Ratio NOT REPORTED Normal -20 [facility] Comment on above: Performed By: #### C DP, CP, LIPR, TSHX, TREP, HIVCMB, HSVPR #### [address] [address] Progress Worker: Satya Valdez MD #### AHCGEN #### [address] [phone] Progress Worker: Remi Harman MD Staging: NOT REPORTED Normal [facility] Comment on above: Performed By: #### C DP, CP, LIPR, TSHX, TREP, HIVCMB, HSVPR #### [address] [address] Progress Worker: Satya Valdez MD #### AHCGEN #### [facility] [address] [place] [address] [phone] Progress Worker: Remi Harman MD Comprehensive Metabolic Pane nando 05-27-2019 Albumin [Mass/Vol] 4.4 g/dL 3.5 - 5.2 g/dL [place] Albumin/Globulin [Mass ratio] 1.5 {ratio} [place] ALP [Catalytic activity/Vol] 71 U/L 40 - 129 U/L [place] ALT [Catalytic activity/Vol] 43 U/L High 5 - 41 U/L [place] Anion gap [Moles/Vol] 12 mmol/L 9 - 17 mmol/L [place] AST [Catalytic activity/Vol] 37 U/L <40 [place] Bilirubin Ql (U) 0.38 mg/dL 0.3 - 1.2 mg/dL [place] Bun/Cre Ratio NOT REPORTED [place], [place] Calcium [Mass/Vol] 9.7 mg/dL 8.6 - 10. 4 mg/dL [place] Chloride [Moles/Vol] 100 mmol/L 98 - 10 7 mmol/L [place] CO2 [Moles/Vol] 27 mmol/L 20 - 31 mmol/L [place] Creatinine [Mass/Vol] 1.28 mg/dL High 0.7 - 1.2 mg/dL [place] GFR >60 >60 mL/min [place] GFR Non- >60 >60 mL/min [place] GFR/1.73 sq M predicted among non-blacks MDRD (S/P/Bld) [Vol rate/Area] NOT REPORTED [place] GFR/1.73 sq M predicted among non-blacks MDRD (S/P/Bld) [Vol rate/Area] [place] Comment on above: Average GFR for 30-3 9 years old: 107 mL/min/1.73sq m Chronic Kidney Disease: <60 mL/min/1.73sq m Kidney failure: <15 mL/min/1.73sq m eGFR calculated using average adult body mass. Additional eGFR calculator available at: http://www.[employer]/multiple_crcl_2012.htm Glucose [Mass/Vol] 77 mg/dL 70 - 99 mg/dL [place] Potassium [Moles/Vol] 3.9 mmol/L 3.7 - 5.3 mmol/L [place] Protein [Mass/Vol] 7.3 g/dL 6.4 - 8.3 g/dL [place] Sodium [Moles/Vol] 139 mmol/L 135 - 144 mmol/L [place] Urea nitrogen [Mass/Vol] 9 mg/dL 6 - 20 mg/dL [place] HCV Genotype, PCRon 05-27-20 19 HCV Viral Load NOT REPORTED Normal [facility] Comment on above: Performed By: #### C DP, CP, LIPR, TSHX, TREP, HIVCMB, HSVPR #### [facility] [address] [place] [address] [phone] Progress Worker: Satya Valdez MD #### AHCGEN #### [facility] [address] [place] [address] Progress Worker: Remi Harman MD HIV Ag/Abon 05-27-2019 HIV Ag/Ab NONREACTIVE Normal NR [facility] Comment on above: Result Comment: No l aboratory evidence of HIV infection. If acute HIV infection is suspected, consider testing for HIV-1 RNA. Performed By: #### C DP, CP, LIPR, TSHX, TREP, HIVCMB, HSVPR #### [facility] [address] [place] [address] [phone] Progress Worker: Satya Valdez MD #### AHCGEN #### [facility] [address] [place] [address] Progress Worker: Remi Harman MD Lipid Panelon 05-27-2019 Cholesterol [Mass/Vol] 233 mg/dL High <200 [place] Comment on above: Cholesterol Guidelines: <200 Desirable 200-240 Borderline >240 Undesirable Cholesterol in HDL [Mass/Vol] 60 mg/dL >40 [place] Comment on above: HDL Guidelines: <40 Undesirable 40-59 Borderline >59 Desirable Cholesterol in LDL [Mass/Vol] 145 mg/dL High 0 - 130 mg/dL [place] Comment on above: LDL Guidelines: <100 Desirable 100-129 Near to/above Desirable 130-159 Borderline >159 Undesirable Direct (measured) LDL and calculated LDL are not interchangeable tests. Cholesterol in VLDL [Mass/Vol] NOT REPORTED 1 - 30 mg/dL [place] Cholesterol.total/Cho lesterol in HDL [Mass ratio] 3.9 {ratio} <5 [place] Triglyceride [Mass/Vol] 138 mg/dL <150 [place] Comment on above: Triglyceride Guidelines: <150 Desirable 150-199 Borderline 200-499 High >499 Very high Based on AHA Guidelines for fasting triglyceride, May 2012. Lipid Profileon 05-27-2019 Cholesterol [Mass/Vol] 233 mg/dL High <200 [facility] Comment on above: Result Comment: Cholesterol Guidelines: <200 Desirable 200-240 Borderline >240 Undesirable Performed By: #### C DP, CP, LIPR, TSHX, TREP, HIVCMB, HSVPR #### [email or web address] [address] [place] [address] [phone] Progress Worker: Satya Valdez MD #### AHCGEN #### [facility] [address] [place], [place] [phone] Progress Worker: Remi Harman MD Cholesterol in HDL [Mass/Vol] 60 mg/dL Normal >40 [facility] Comment on above: Result Comment: HDL Guidelines: <40 Undesirable 40-59 Borderline >59 Desirable Performed By: #### C DP, CP, LIPR, TSHX, TREP, HIVCMB, HSVPR #### [email or web address] [address] [place] [address] Progress Worker: Satya Valdez MD #### AHCGEN #### [facility] [address] [place], [place] [phone] Progress Worker: Remi Harman MD Cholesterol in LDL [Mass/Vol] 145 mg/dL High 0-130 [facility] Comment on above: Result Comment: LDL Guidelines: <100 Desirable 100-129 Near to/above Desirable 130-159 Borderline >159 Undesirable Direct (measured) LDL and calculated LDL are not interchangeable tests. Performed By: #### C DP, CP, LIPR, TSHX, TREP, HIVCMB, HSVPR #### [email or web address] [place] [address] Progress Worker: Satya Valdez MD #### AHCGEN #### [facility] [address] [place] [address] Progress Worker: Remi Harman MD Cholesterol.total/Cho lesterol in HDL [Mass ratio] 3.9 {ratio} Normal <5 [facility] Comment on above: Performed By: #### C DP, CP, LIPR, TSHX, TREP, HIVCMB, HSVPR #### [facility] [address] [place] [address] Progress Worker: Satya Valdez MD #### AHCGEN #### [facility] [address] [place], [place] [phone] Progress Worker: Remi Harman MD Triglyceride [Mass/Vol] 138 mg/dL Normal <150 [facility] Comment on above: Result Comment: Triglyceride Guidelines: <150 Desirable 150-199 Borderline 200-499 High >499 Very high Based on AHA Guidelines for fasting triglyceride, May 2012. Performed By: #### C DP, CP, LIPR, TSHX, TREP, HIVCMB, HSVPR #### [facility] [address] [place] [address] Progress Worker: Satya Valdez MD #### AHCGEN #### [facility] [address] [place] [address] Progress Worker: Remi Harman MD Cholesterol in VLDL [Mass/Vol] NOT REPORTED Normal 1-30 [facility] Comment on above: Performed By: #### C DP, CP, LIPR, TSHX, TREP, HIVCMB, HSVPR #### [facility] [address] [place] [address] [phone] Progress Worker: Satya Valdez MD #### AHCGEN #### [facility] [address] [place], [place] [phone] Progress Worker: Remi Harman MD Otheron 05-27-2019 Interpretation and review of laboratory results Abnormal [facility], [place] T.pallidum Ab Screenon 05-27 T.pallidum Ab Screen NONREACTIVE Normal NR [facility] Comment on above: Result Comment: T. pallidum antibodies are not detected. There is no serological evidence of infection with T. pallidum (early primary syphilis cannot be excluded). Retest in 2-4 weeks if syphilis is clinically suspect. Performed By: #### C DP, CP, LIPR, TSHX, TREP, HIVCMB, HSVPR #### [address] [phone] Progress Worker: Satya Valdez MD #### AHCGEN #### [address] [address] Progress Worker: Remi Harman MD TSH w/reflex to FT4on 2018 TSH Qn 2.51 m[IU]/L Normal 0.30-5.00 [facility] Comment on above: Performed By: #### C DP, CP, LIPR, TSHX, TREP, HIVCMB, HSVPR #### [address] [phone] Progress Worker: Satya Valdez MD #### AHCGEN #### [facility] [address] [place] [address] Progress Worker: Remi Harman MD TSH with Reflexon 05-27-2019 TSH Qn 2.51 m[IU]/L [place] Trich Vag, Molecularon 05-27 Trich Vag, Molecular Negative Normal NEG [facility] Comment on above: Result Comment: T. [...] Performed By: #### U CGP, TRCMOL #### [email or web address] [place], [place] [phone] Progress Worker: Satya aVldez MD Source: .URINE Normal [facility] Comment on above: Performed By: #### U CGP, TRCMOL #### [email or web address] [address] [place] [phone] Progress Worker: Satya Valdez MD CBC Auto Differentialon 10-0 Basophils (Bld) [#/Vol] 0.05 10*3/uL [place] Basophils/100 WBC (Bld) 1 % 0 - 2 % [place] Differential Type NOT REPORTED [place] Eosinophils (Bld) [#/Vol] 0.25 10*3/uL [place] Eosinophils/100 WBC (Bld) 4 % 1 - 4 % [place] Erythrocyte distribution width (RBC) [Ratio] 12.4 % 11.8 - 14.4 % [place] Hematocrit (Bld) [Volume fraction] 48.5 % 40.7 - 50.3 % [place] Hemoglobin (Bld) [Mass/Vol] 16.0 g/dL 13 - 17 g/dL [place] Immature granulocytes (Bld) [#/Vol] 0 % 0 [place] Immature granulocytes (Bld) [#/Vol] 10*3/uL [place] Lymphocytes (Bld) [#/Vol] 2.73 10*3/uL [place] Lymphocytes/100 WBC (Bld) 38 % 24 - 43 % [place] MCH (RBC) [Entitic mass] 30.5 pg 25.2 - 33.5 pg [place] MCHC (RBC) [Mass/Vol] 33.0 g/dL 28.4 - 34.8 g/dL [place] MCV (RBC) [Entitic vol] 92.4 fL 82.6 - 102.9 fL [place] Monocytes (Bld) [#/Vol] 0.61 10*3/uL [place] Monocytes/100 WBC (Bld) 9 % 3 - 12 % [place] Platelet mean volume (Bld) [Entitic vol] 9.9 fL 8.1 - 13.5 fL [place] Platelets (Bld) [#/Vol] NOT REPORTED [place] Platelets (Bld) [#/Vol] 370 10*3/uL [place] RBC (Bld) [#/Vol] 5.25 10*6/uL 4.21 - 5.7 7 m/uL [place] RBC morphology finding Nom (Bld) NOT REPORTED [place] Segmented neutrophils/100 WBC (Bld) 48 % 36 - 65 % [place] Segs Absolute 3.47 [place] WBC (Bld) [#/Vol] 7.1 10*3/uL [place] WBC (Bld) [#/Vol] 0.0 10*3/uL 0.0 per 10 0 WBC [place] WBC Morphology NOT REPORTED [place], [place] [facility] 05-26-2019 Cholesterol [Mass/Vol] 233 mg/dL High (<200) [facility] Work Phone: Comment on above: Note: Cholesterol Gu idelines:<200 [id number] Borderline>240 UndesirableResponsible Observer: DIANA AUTOFILE (3003) Triglyceride [Mass/Vol] 138 mg/dL (<150) [facility] Work Phone: Comment on above: Note: Triglyceride G uidelines:<150 [id number] High>499 Very highBased on AHA Guidelines for fasting triglyceride, May 2012.Responsible Observer: DIANA AUTOFILE (3003) Hematologyon 05-26-2019 Basophils/100 WBC (Bld) 1 % (0-2) [facility] Work Phone: Comment on above: Note: Responsible Ob observer electrical prospecting: XNV AUTOFILE (3018) Eosinophils (Bld) [#/Vol] 0.25 10*3/uL (0.00-0.44) [facility] Work Phone: Comment on above: Note: Responsible Ob observer electrical prospecting: XNV AUTOFILE (3018) Eosinophils/100 WBC (Bld) 4 % (1-4) [facility] Work Phone: Comment on above: Note: Responsible Ob observer electrical prospecting: XNV AUTOFILE (3018) Hematocrit (Bld) [Volume fraction] 48.5 % (40.7-50.3) [facility] Work Phone: Comment on above: Note: Responsible Ob observer electrical prospecting: XNV AUTOFILE (3018) Hemoglobin (Bld) [Mass/Vol] 16.0 g/dL (13.0-17.0) [facility] Work Phone: Comment on above: Note: Responsible Ob observer electrical prospecting: XNV AUTOFILE (3018) Lymphocytes (Bld) [#/Vol] 2.73 10*3/uL (1.10-3.70) [facility] Work Phone: Comment on above: Note: Responsible Ob observer electrical prospecting: XNV AUTOFILE (3018) Lymphocytes/100 WBC (Bld) 38 % (24-43) [facility] Work Phone: Comment on above: Note: Responsible Ob observer electrical prospecting: XNV AUTOFILE (3018) MCH (RBC) [Entitic mass] 30.5 pg (25.2-33.5) [facility] Work Phone: Comment on above: Note: Responsible Ob observer electrical prospecting: XNV AUTOFILE (3018) MCV (RBC) [Entitic vol] 92.4 fL (82.6-102.9) [facility] Work Phone: Comment on above: Note: Responsible Ob observer electrical prospecting: XNV AUTOFILE (3018) Monocytes (Bld) [#/Vol] 0.61 10*3/uL (0.10-1.20) [facility] Work Phone: Comment on above: Note: Responsible Ob observer electrical prospecting: XNV AUTOFILE (3018) Monocytes/100 WBC (Bld) 9 % (3-12) [facility] Work Phone: Comment on above: Note: Responsible Ob observer electrical prospecting: XNV AUTOFILE (3018) Platelets (Bld) [#/Vol] NOT REPORTED [facility] Work Phone: Platelets (Bld) [#/Vol] 370 10*3/uL (138-453) [facility] Work Phone: Comment on above: Note: Responsible Ob observer electrical prospecting: XNV AUTOFILE (3018) RBC (Bld) [#/Vol] 5.25 10*6/uL (4.21-5.77) [facility] Work Phone: Comment on above: Note: Responsible Ob observer electrical prospecting: XNV AUTOFILE (3018) RBC morphology finding Nom (Bld) NOT REPORTED [facility] Work Phone: WBC (Bld) [#/Vol] 0.0 per_100_WBC (0.0) [facility] Work Phone: Comment on above: Note: Responsible Ob observer electrical prospecting: XNV AUTOFILE (3018) WBC (Bld) [#/Vol] 7.1 10*3/uL (3.5-11.3) [facility] Work Phone: Comment on above: Note: Responsible Ob observer electrical prospecting: XNV AUTOFILE (3018) Metabolic Panelon 05-26-2019 Albumin [Mass/Vol] 4.4 g/dL (3.5-5.2) [facility] Work Phone: Comment on above: Note: Responsible Ob observer electrical prospecting: CEEV AUTOFILE (3003) ALT [Catalytic activity/Vol] 43 U/L High (5-41) [facility] Work Phone: Comment on above: Note: Responsible Ob observer electrical prospecting: CEEV AUTOFILE (3003) Anion gap [Moles/Vol] 12 mmol/L (9-17) [facility] Work Phone: Comment on above: Note: Responsible Ob observer electrical prospecting: CEEV AUTOFILE (3003) AST [Catalytic activity/Vol] 37 U/L (<40) [facility] Work Phone: Comment on above: Note: Responsible Ob observer electrical prospecting: CEEV AUTOFILE (3003) Bilirubin [Mass/Vol] 0.38 mg/dL (0.3-1.2) [facility] Work Phone: Comment on above: Note: Responsible Ob observer electrical prospecting: CEEV AUTOFILE (3003) Calcium [Mass/Vol] 9.7 mg/dL (8.6-10.4) [facility] Work Phone: Comment on above: Note: Responsible Ob observer electrical prospecting: CEEV AUTOFILE (3003) Chloride [Moles/Vol] 100 mmol/L (98-107) [facility] Work Phone: Comment on above: Note: Responsible Ob observer electrical prospecting: CEEV AUTOFILE (3003) CO2 [Moles/Vol] 27 mmol/L (20-31) [facility] Work Phone: Comment on above: Note: Responsible Ob observer electrical prospecting: CEEV AUTOFILE (3003) Creatinine [Mass/Vol] 1.28 mg/dL High (0.70-1.20) [facility] Work Phone: Comment on above: Note: Responsible Ob observer electrical prospecting: CEEV AUTOFILE (3003) Glucose [Mass/Vol] 77 mg/dL (70-99) [facility] Work Phone: Comment on above: Note: Responsible Ob observer electrical prospecting: CEEV AUTOFILE (3003) Potassium [Moles/Vol] 3.9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
[2024-09-09 08:33] LABS: Basophils Percent Auto 0.5 % (0.2-2.0); Eosinophils Absolute Auto 0.2 10^3/uL (0.0-0.7); Eosinophils Percent Auto 3.3 % (0.9-7.0); Hematocrit 47.3 % (42.0-54.0); Hemoglobin 16.1 g/dL (14.0-18.0); Lymphocytes Absolute Auto 2.5 10^3/uL (1.2-3.8); Lymphocytes Percent Auto 43.4 % (20.5-60.0); Mean Corpuscular Hemoglobin 31.2 pg (25.9-34.0); Mean Corpuscular Volume 91.7 fL (80.0-94.0); Mean Platelet Volume 9.5 fL (9.5-13.5); Monocytes Absolute Auto 0.7 10^3/uL (0.3-0.8); Monocytes Percent Auto 11.4 % (1.7-12.0); Neutrophils Absolute Auto 2.4 10^3/uL (1.4-6.5); Neutrophils Percent Auto 41.4 % (43.0-75.0); Platelet Count 290 10^3/uL (150-450); Red Blood Count 5.16 10^6/uL (4.70-6.10); Red Cell Distribution Width 12.2 % (11.0-15.0); White Blood Count 5.7 10^3/uL (4.0-11.0)
[2024-09-09 08:56] LABS: Estimated Average Glucose 97 mg/dL
[2024-09-09 09:20] LABS: Alanine Aminotransferase 330 U/L (16-63); Albumin Globulin Ratio 1.1; Albumin Level 3.9 g/dL (3.4-5.0); Alkaline Phosphatase 80 U/L (46-116); Anion Gap 12.6; Aspartate Amino Transferase 209 U/L (15-37); BUN Creatinine Ratio 11.2; Bilirubin Total 0.9 mg/dL (0.2-1.0); Calcium 8.9 mg/dL (8.5-10.1); Carbon Dioxide 29.1 mmol/L (21.0-32.0); Chloride 100 mmol/L (98-107); Chol HDL Ratio 2.8; Cholesterol 178 mg/dL (<=200); Estimated GFR (African America >60 (>=60 mL/min/1.73m^2); Estimated GFR (Non-African Ame 59 (>=60 mL/min/1.73m^2); Free T3 2.31 pg/mL (2.18-3.98); Globulin 3.6 g/dL; Glucose 105 mg/dL (74-106); HDL Cholesterol 63 mg/dL (40-60); Potassium 3.7 mmol/L (3.5-5.1); Sodium 138 mmol/L (136-145); Thyroid Stimulating Hormone 0.997 uIU/mL (0.358-3.740); Total Protein 7.5 g/dL (6.4-8.2); Triglycerides 138 mg/dL (<=150); VLDL CHOLESTEROL 27.6 mg/dL
[2024-09-09 09:47] LABS: Prostate Specific Antigen Scrn 0.31 ng/mL (<=4.00)
[2024-09-11 18:07] LABS: Thyroglobulin Antibody <1.0 IU/mL (0.0-0.9); Thyroid Peroxidase (TPO) Ab 12 IU/mL (0-34)
== END 2024-09-09 08:12 | disposition home or self-care (01) ==
LOC: LAB 08:11
PROVIDERS: PCP Family Medicine; Visit Provider Family Medicine
DX: L02.91 Cutaneous abscess, unspecified (principal); R41.3 Other amnesia; G47.00 Insomnia, unspecified; R79.89 Other specified abnormal findings of blood chemistry
CPT/HCPCS: 36415; 80053; 80061; 83036; 84436; 84443; 84481; 85025; 86376; 86800; G0103

== ENCOUNTER 2024-11-20 13:11 | Emergency (ER) | payer OTHER, SELFPAY ==
[2024-11-20 13:20] VITALS: BP 93/71; PULSE 89; TEMP 36.6; O2SAT 98; BMI 23.1
--- NOTE | 2024-11-20 14:28 | ED.GENADUL1 ---
HPI HPI - General Adult General Chief complaint: Nausea/Vomiting/Diarrhea Stated complaint: UNABLE TO EAT WITHDRAWL Time Seen by Provider: 11/20/24 13:40 Source: patient Mode of arrival: walk-in Limitations: no limitations History of Present Illness HPI narrative: Patient is a 39-year-old male who is presenting to the ER today with chief complaint of 3 days of intermittent nausea, abdominal cramping, not having the appetite to eat. Patient is not lightheaded or dizzy. Patient was on Cipro then doxycycline for ear infections. Patient still has some sinus congestion and mild sore throat. Patient's had 3 days of intermittent diarrhea. Patient is a crystal meth dependent patient, he stopped using crystal meth 2 weeks ago. 1 of patient's concerns is that his aunt who he lives with might be poison him with adding meth to the button sewer system, water system, the 5 gallon jugs of water that he is using to drink out of. Patient states the concern for crystal meth is because he lost his appetite. Patient has felt loss of appetite when he was on meth, otherwise does not have the stimulation or other side effects of crystal meth that he typically fills. Patient is asking for a drug test to see if there is crystal meth in his system. Patient PCP is Dr. Guy. Patient wants to have a drug urine screen in the ER which there is not appear to be any acute indication for this, he did not purchase 1 [id number] and did not ask Dr. Guy. All systems are negative except as noted/marked. All systems reviewed and otherwise negative. Nurses note and vital signs reviewed and patient is not hypoxic. General: The patient appears well and in no apparent distress. Patient is resting comfortably on cart. Patient is not toxic, lethargic, or listless. Skin: Warm, dry, no pallor noted. There is no rash noted. No petechiae, purpura. Patient has multiple tattoos, no secondary signs of infection. Head: Normocephalic, atraumatic Eye: Normal conjunctiva, no drainage, EOMI. PERRL Ears, Nose, Mouth, and Throat: oral mucosa is moist. Patient has no unilateral swelling, no obvious signs of peritonsillar abscess, no posterior pharyngeal petechiae or exudate. Airways patent. Patient tolerating secretions well. No trismus. Patient has clear drainage noted to the posterior pharynx. Patient has mild cobblestoning to the posterior pharynx. No bilateral anterior or posterior cervical lymphadenopathy. Nares patent. Mouth without vesicles. Cardiovascular: Regular Rate and Rhythm, no murmur, gallop, rub Respiratory: Patient is in no distress, no accessory muscle use, lungs are clear to auscultation, no wheezing, rales or rhonchi Back: non-tender, no CVA tenderness bilaterally to percussion. No CT LS midline pain GI: no tenderness to palpation, no masses appreciated. No rebound, guarding, or rigidity noted. No distention. Musculoskeletal: Patient has full range of motion of all of the extremities, no motor, sensory, or focal neurological deficits Neurological: A&O x4, normal speech Psychiatric: Cooperative Related Data Previous Rx's ?Medication ?Instructions ?Recorded dicyclomine 20 mg tablet 20 mg PO TID PRN abdominal pain #7 11/20/24 tabs ondansetron 4 mg disintegrating 4 mg PO Q4H PRN nausea and 11/20/24 tablet vomiting 3 days #6 tabs Allergies Allergy/AdvReac Type Severity Reaction Status Date / Time No Known Drug Allergies Allergy Verified 01/23/24 17:50 Opioid HPI Opioid Management Most Recent Opioid Data: Last Pain Scale 5 11/20/24 14:13 11/20/24 PFSH PFSH Social History Little interest or pleasure in doing things: not at all Feeling down, depressed, or hopeless: not at all Exam Constitutional Vital Signs, click to edit/add: Last Vital Signs Temp 98 F 11/20/24 13:20 Pulse 89 11/20/24 13:20 Resp 18 11/20/24 13:20 BP 93/71 11/20/24 13:20 Pulse Ox 98 11/20/24 13:20 O2 Del Method Room Air 11/20/24 13:20 Course Vital Signs Vital signs: Vital Signs Temperature 98 F 11/20/24 13:20 Pulse Rate 89 11/20/24 13:20 Respiratory Rate 18 11/20/24 13:20 Blood Pressure 93/71 11/20/24 13:20 Pulse Oximetry 98 11/20/24 13:20 Oxygen Delivery Method Room Air 11/20/24 13:20 Temperature 98 F 11/20/24 13:20 Pulse Rate 89 11/20/24 13:20 Respiratory Rate 18 11/20/24 13:20 Blood Pressure 93/71 11/20/24 13:20 Pulse Oximetry 98 11/20/24 13:20 Oxygen Delivery Method Room Air 11/20/24 13:20 Medical Decision Making MDM Narrative Medical decision making narrative: Patient seen and examined: Clinical presentation and history is concerning for nausea, vomiting, diarrhea, abdominal cramping for 3 days and wanting a drug screening test for paranoid that his aunt is poisoning him Differential diagnosis includes but is not limited to: Nausea, vomiting, diarrhea, appendicitis, colitis, UTI, pyelonephritis. Diagnostics and management: Patient will have laboratory studies Relevant laboratory interpretation: No acute indication for testing at this time. Radiological studies: None Reevaluation: I had Vince LLOYD at bedside as a witness the entire time during HPI and physical exam. Patient after he was educated why there is no acute indication to perform any type of drug testing. Patient was told that he could use [id number] drug test if he would like or speak to his PCP and he court ordered outpatient drug test if he like. Patient was told there is no acute indication for drug testing at this time, that was one of his chief concerns. Patient initially became vocal and upset that I was not doing a drug test, saying he needed to figure out what is causing his nausea vomiting flag symptoms. Patient was educated again that I am treating his symptoms with Tip Regalado and follow-up with PCP and treat him symptomatically. Patient has no pain to palpation to his abdomen, she has a nonsurgical abdomen, no acute findings with his abdominal exam at all. Patient after 30 seconds of being upset I would not do the test, patient then became very tearful, apologized to us multiple times, stating that he was sorry for wasting her time, sorry for being here, and was apologizing. I told the patient and Vince LLOYD said the same thing that he is not wasting her time at all, were happy to see and evaluate him, treat him appropriately and have a follow-up. Patient understands he can always return back to the ER if needed. Patient dressed, and then he opened up the door and came out yelling, cussing, hitting doors, was very loud and vocal as he walked out the ER hallway and went outside. Security was called. Patient was not confrontational with any certain individual, he was just yelling from room 7 as he walked out the double doors into the waiting room and was yelling and cussing through the waiting room as well. Social barriers to healthcare: There are no food insecurities, there is no issue with transportation, there are no insurance barriers. Disposition: I discussed with the patient Diagnosis: Nausea, vomiting, diarrhea Discharge Plan Discharge Chief Complaint: Nausea/Vomiting/Diarrhea Clinical Impression: Nausea & vomiting, Diarrhea, Abdominal cramping Patient Disposition: Home, Self-Care Time of Disposition Decision: 14:21 Condition: Fair Prescriptions / Home Meds: New dicyclomine 20 mg tablet 20 mg PO TID PRN (Reason: abdominal pain) Qty: 7 0RF ondansetron 4 mg tablet,disintegrating 4 mg PO Q4H PRN (Reason: nausea and vomiting) 3 Days Qty: 6 0RF Print Language: Bulgarian Instructions: Dehydration (ED), Acute Nausea and Vomiting (ED), Acute Diarrhea (ED), Abdominal Pain (ED) Additional Instructions: They sell [id number] drug test if you would like to purchase 1 for outpatient testing if you desire. You may follow-up with your PCP, Dr. Guy in the office as well if you would like additional testing. You have had symptoms for 3 days, we will treat you prophylactically. You are given Zofran and Bentyl in the ER. You were prescribed Zofran and Bentyl to help with nausea and abdominal cramping. Increase fluids of Gatorade, Powerade, water at home. Return back to the ER for any other acute abdominal pain, nausea, vomiting, or any other acute concerns. Increase fluids at home, Gatorade, Powerade, or water. Alternate using DayQuil, NyQuil, and Flonase. Add Mucinex as well as needed. Alternate Tylenol and Motrin every 4 hours to help with fever control, body aches or joint pain. Use niym-qbm-nuxmqfo vitamin C, vitamin D3, and zinc to help fight infection and help with her immune system. Referrals: Rell Guy MD [Primary Care Provider] - 1 week
== END 2024-11-20 14:35 | disposition home or self-care (01) ==
PROVIDERS: Emergency Provider Emergency Medicine; PCP Family Medicine
DX: R11.2 Nausea with vomiting, unspecified (principal); R19.7 Diarrhea, unspecified; R10.9 Unspecified abdominal pain; F15.20 Other stimulant dependence, uncomplicated
CPT/HCPCS: 99283

== ENCOUNTER 2024-12-17 11:42 | Emergency (ER) | payer OTHER, SELFPAY ==
[2024-12-17 11:56] VITALS: BP 95/56; PULSE 85; TEMP 36.8; O2SAT 97; BMI 21.0
--- NOTE | 2024-12-17 13:14 | PC.NURSE ---
laceration to right hand between 2nd and 3rd digit, non bleeding
--- NOTE | 2024-12-17 13:18 | ED.SKABFB1 ---
HPI - Skin/Abscess/Foreign Bdy General Chief complaint: Skin/Abscess/Foreign Body Stated complaint: LACERATION RIGHT HAND Time Seen by Provider: 12/17/24 13:17 Source: patient Mode of arrival: walk-in History of Present Illness HPI narrative: 39 year male presents to the ED for a laceration to his right hand. Reports cutting himself last night with a kitchen knife that was in his sink. His last tetanus update was in 2018. Denies fever, weakness, N/T. He has full ROM to his right hand and digits. Distal sensation intact. Related Data Home Medications ?Medication ?Instructions ?Recorded ?Confirmed buprenorphine 8 mg-naloxone 2 mg 1 film sublingual BID 12/17/24 12/17/24 sublingual film (Suboxone) bupropion HCl 150 mg 24 hr tablet, 150 mg PO DAILY 12/17/24 12/17/24 extended release fluoxetine 20 mg capsule 20 mg PO DAILY 12/17/24 12/17/24 Previous Rx's ?Medication ?Instructions ?Recorded cephalexin 500 mg capsule 500 mg PO Q8H 7 days #21 caps 12/17/24 Allergies Allergy/AdvReac Type Severity Reaction Status Date / Time Penicillins Allergy Severe Unknown Verified 12/17/24 12:02 Review of Systems ROS Constitutional Denies: fever, chills or fatigue Ears, nose, mouth, and throat Denies: neck pain Cardiovascular Denies: chest pain Respiratory Denies: shortness of breath Integumentary/Breast Reports: other (laceration) Neurological Denies: numbness in extremities or weakness in extremities PFSH PFS Social History Little interest or pleasure in doing things: not at all Feeling down, depressed, or hopeless: not at all Exam Constitutional Vital Signs, click to edit/add: Last Vital Signs Temp 98.2 F 12/17/24 11:56 Pulse 85 12/17/24 11:56 Resp 16 12/17/24 11:56 BP 95/56 12/17/24 11:56 Pulse Ox 97 12/17/24 11:56 O2 Del Method Room Air 12/17/24 11:56 Common normals: no apparent distress and oriented x3 General appearance: cooperative HENMT Common normals: moist oral mucous membranes Eye Common normals: conjunctivae normal and no scleral icterus Neck & C-Spine Common normals: supple Respiratory Effort & inspection: symmetric chest movement Cardio Common normals: regular rate Extremity Other: 2.5 cm laceration to right hand. Extends from base of 4th digit on palm to 4th webspace. Sutures indicated. No active bleeding. No swelling or obvious deformity. Wound appears superficial. No visible or palpable FB. Full ROM to right hand and digits. Distal sensation intact. Neuro Common normals: oriented x3, moves all extremities and no focal motor deficits Sensorium/orientation: awake and alert Course Vital Signs Vital signs: Vital Signs Temperature 98.2 F 12/17/24 11:56 Pulse Rate 85 12/17/24 11:56 Respiratory Rate 16 12/17/24 11:56 Blood Pressure 95/56 12/17/24 11:56 Pulse Oximetry 97 12/17/24 11:56 Oxygen Delivery Method Room Air 12/17/24 11:56 Temperature 98.2 F 12/17/24 11:56 Pulse Rate 85 12/17/24 11:56 Respiratory Rate 16 12/17/24 11:56 Blood Pressure 95/56 12/17/24 11:56 Pulse Oximetry 97 12/17/24 11:56 Oxygen Delivery Method Room Air 12/17/24 11:56 MDM - Skin/Abscess/Foreign Bdy MDM Narrative Medical decision making narrative: His wound was irrigated and sutures were placed. A dressing was applied. A prescription was provided for Keflex due to the wound occurring 15 hours prior. Suture removal in approx 10 days. Wound care instructions were discussed. Return precautions were discussed. Discharge Plan Discharge Chief Complaint: Skin/Abscess/Foreign Body Clinical Impression: Hand laceration Patient Disposition: Home, Self-Care Time of Disposition Decision: 13:44 Condition: Good Mode of Transportation: Private Vehicle Prescriptions / Home Meds: New cephalexin 500 mg capsule 500 mg PO Q8H 7 Days Qty: 21 0RF No Action buprenorphine-naloxone [Suboxone] 8-2 mg film 1 film sublingual BID bupropion HCl 150 mg tablet extended release 24 hr 150 mg PO DAILY fluoxetine 20 mg capsule 20 mg PO DAILY Print Language: Wolof Instructions: Laceration (ED) Additional Instructions: Keep the wound clean and dry. Do not soak the wound. Gently cleansing with soap and water is okay. Watch for signs of infection: redness, purulent drainage, increased warmth, swelling. The stitches will need to be removed in about 10 days. Referrals: Rell Guy MD [Primary Care Provider, [facility]] - 1 week Discharge Date/Time: 12/17/24 14:11 Procedures ED Laceration Laceration Laceration 1: Site: hand Side (if applicable): right Size (cm): 2.5 Description: irregular Depth: simple, single layer Anesthetic used: lidocaine 1% Anesthesia technique: local infiltration Size (cm): other (4-0 Nylon, 5-0 Prolene) Number of sutures: 7 Technique: simple, interrupted Additional comments: The wound was irrigated extensively with NS prior to closure. He tolerated the procedure well.
[2024-12-17] MEDS: ADACEL DIPH,PERTUSS(ACELL),TET VAC/PF 0.5 ML ADULT SYRINGE IM (13:28)
[2024-12-17] MEDS: LIDOCAINE HCL 1% 100 MG/10 ML MDV INJ (13:28)
[2024-12-17] MEDS: BACITRACIN 0.9 GM PACKET 1 PACKET TOPICAL (14:10)
== END 2024-12-17 14:11 | disposition home or self-care (01) ==
PROVIDERS: Emergency Provider Emergency Medicine; PCP Family Medicine
DX: S61.411A Laceration without foreign body of right hand, initial encounter (principal); W26.0XXA Contact with knife, initial encounter; Z23 Encounter for immunization
CPT/HCPCS: 12001; 90471; 90715; 99283

== ENCOUNTER 2025-06-15 16:19 | Emergency (ER) | payer OTHER, SELFPAY ==
--- OUTSIDE RECORDS SUMMARY | 2024-10-02 10:15 | XMS_ITS ---
Author Organization [facility] in [place] Address [address] [place] [address] Care Team Providers Care Teacher Of The Deaf/Hard Of Hearing Name Role Phone Ezekiel Guy Primary Care Provider [phone] REASON FOR VISIT laryngitis Encounters Encounter Location Date Provider Diagnosis [facility] [address] [place] [address] 10/02/2024 Ezekiel Guy Plan Of Treatment Next Appt Details Provider Name:Ezekiel Guy, 01:30:00 PM, [address] [facility], [place], [address], Provider Name:Ezekiel Guy, 10:15:00 AM, [address] [facility], [place], [address], Progress Notes * Leonardo RAND WDOB:1984 (40 yo M)Acc No.[id number]:10/02/2024 UNLOCKED PROGRESS NOTE Progress Note Patient: Leonardo PICKENS :?Rell Guy ([facility]), MDDOB:1985???Age: 39 Y???Sex:MaleDate:10/02/2024Phone:[phone]:[address] [facility] [address], [facility] Subjective: * Chief Complaints: * 1 . Laryngitis. * Medical History: Objective: * Vitals: Assessment: Plan: * Treatment: * * Electronic signature of Ezekiel Guy MD, [id number] on 06/15/2025 at 04:28 PM EDT Sign off status: PendingVisit Status:?N/S N/C (No Show/No Charge) * Provider: Cior Guy ([facility])MD Date: 0 10/02/2024 Generated for Printing/Faxing/eTransmitting on:?06/15/2025 04:28 PM EDT
--- OUTSIDE RECORDS SUMMARY | 2024-11-19 11:00 | XMS_ITS ---
Author Organization [facility] in [place] Address [address] [place] [address] Care Team Providers Care Pastry Decorator Name Role Phone Ezekiel Guy Primary Care Provider REASON FOR VISIT CYST ON BRAIN Encounters Encounter Location Date Provider Diagnosis [facility] [address] [place] [address] 11/19/2024 Ezekiel Guy Plan Of Treatment Next Appt Details Provider Name:Ezekiel Guy, 01:30:00 PM, [address] [facility] [place], [address], Provider Name:Ezekiel Guy, 10:15:00 AM, [address] [facility], [place], [address], Progress Notes * Leonardo RAND WDOB:1984 (40 yo M)Acc No.[id number]:11/19/2024 UNLOCKED PROGRESS NOTE Progress Note Patient: Leonardo PICKENS :?Rell Guy ([facility]), MDDOB:1985???Age: 39 Y???Sex:MaleDate:11/19/2024Phone:[phone]:[address] [facility] [address], [facility] Subjective: * Chief Complaints: * 1 . CYST ON BRAIN. * Medical History: Objective: * Vitals: Assessment: Plan: * Treatment: * * Electronic signature of Ezekiel Guy MD, [id number] on 06/15/2025 at 04:28 PM EDT Sign off status: PendingVisit Status:?N/S N/C (No Show/No Charge) * Provider: Ciro Guy ([facility])MD Date: 0 11/19/2024 Generated for Printing/Faxing/eTransmitting on:?06/15/2025 04:28 PM EDT
--- OUTSIDE RECORDS SUMMARY | 2025-05-31 19:40 | XMS_ITS | Encounter Summary ---
Author Organization [facility] tem Address [id number] [address] [place] [address] Care Team Providers Care Wreath Maker Name Role Phone Rell Guy MD Primary Care Provider [phone] Reason for Visit * ReasonCommentsGenital ItchingPt reports that he has dry skin and penile itching. Pt reports he is unsure if it is STD. Encounter Details DateTypeDepartmentCare Team (Latest Contact Info)Zsqnlrkovru48/13/2025 7:40 PM EDT - 05/31/2025 8:16 PM EDTEmergency [facility] [address] [place] [address] Chase Saxena MD [address] [place] [address] Concern about STD in male without diagnosis (Primary Dx) Discharge Disposition: Home Social History Tobacco UseTypesPacks/DayYears UsedDateSmoking Tobacco: Some Days Vaping/E-cigarettesSmokeless Tobacco: NeverAlcohol UseStandard Drinks/Week CommentsNot Currently0 (1 standard drink = 0.6 oz pure alcohol)ChildcareAnswer Date EzidsrugNjuztasavLcxqzrx94/12/2019EmploymentAnswerDate RecordedEmployment Ffeoftk9501/28/2019Hunger ScreeningAnswerDate RecordedWithin the past 12 months we worried whether our food would run out before we got money to buy more.Never True05/31/2025Within the past 12 months the food we bought just didn't last and we didn't have money to get more.Never True05/31/2025Purpose - LifeAnswerDate RecordedPurpose and direction in uzfxZlokdvf17/11/2021ex and Gender Information ValueDate RecordedSex Assigned at SikrxNwhh66/26/2022 2:51 PM EDTLegal SexMale 03/24/2015 11:35 AM EDTGender YclocxelLrbr40/26/2022 2:51 PM EDTSexual ElcjkjdlzjrGxjmbqdx32/26/2022 2:51 PM EDTdocumented as of this encounter Last Filed Vital Signs Vital SignReadingTime TakenCommentsBlood Duounbbh482/8910 7:22 PM EDT Rrvax874605/31/2025 7:22 PM PFVIooesrghvlu82.6 ??C (97.8 ??F)05/31/2025 7:22 PM EDTRespiratory Qtco2365 7:22 PM EDTOxygen Qejaublvra15%05/31/2025 7:22 PM EDTInhaled Oxygen Concentration--Knbbuy54.5 kg (140 lb)05/31/2025 7:22 PM EDT Jmtpms749.6 cm (5' 6 )05/31/2025 7:22 PM EDTBody Mass Index22. 7:22 PM EDTdocumented in this encounter Discharge Instructions * Attachments The following attachments cannot be sent through Care Everywhere. * Sexually transmitted infections ??? ED discharge instructions (Spanish) documented in this encounter Medications at Time of Discharge MedicationSigDispense QuantityRefillsLast FilledStart DateEnd Date buprenorphine-naloxone (SUBOXONE) 8-2 mg film Dissolve 1 Film on tongue in the morning. acetaminophen (TylenoL) 325 mg tablet Take 2 tablets (650 mg total) by mouth every 6 (six) hours as needed for pain. 30 tablet ARIPiprazole (ABILIFY) 20 mg tablet Take 1 tablet (20 mg total) by mouth in the morning.06/13/2025 bacitracin zinc ointment Apply 1 Application topically in the morning and 1 Application before bedtime. 120 g FLUoxetine (PROzac) 20 mg capsule Take 1 capsule (20 mg total) by mouth in the morning.06/13/2025 ibuprofen (MOTRIN) 600 mg tablet Take 1 tablet (600 mg total) by mouth every 6 (six) hours as needed for pain. 30 tablet traZODone (DESYREL) 50 mg tablet Take 1 tablet (50 mg total) by mouth nightly.06/13/2025documented as of this encounter ED Notes * Ciaran Mario RN - 05/31/2025 8:10 PM EDT Pt left room stating he had a family emergency and he had to leave. Pt states he was already seen and didn't have time to wait around. Pt was told by this nurse hasn't seen him yet or collected his labs yet and needs to wait to be seen but pt stated he had to go at this time. Pt ambulated through lobby to exit. Provider notified. * Chase Saxena MD - 05/31/2025 7:50 PM EDT Images from the original note were not included. [facility] Pt Name: Leonardo Roach Birthdate: 1985 Chief Complaint: Chief Complaint Patient presents with Genital Itching Pt reports that he has dry skin and penile itching. Pt reports he is unsure if it is STD. History of Present Illness: Initial evaluation performed at 7:[address] Tuan Saxena. Patient is a 40 y.o. male who presents to the ED for evaluation of genital itching. Pt states on his genitals he is having dry skin and itching. He states he is unsure of it being related to what he has been using to masturbate or if it was from a sexual encounter. He also states it had swelling, but that calmed down. Pt denied any discharge from urethra. Pt also states he has two sexual partners, and one of them told him she was on an antibiotic for vaginitis, but he is not sure if it was truthful. 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 No pertinent past medical history. Past Surgical History: History reviewed. No pertinent surgical history. Family History: History reviewed. No pertinent family history. Social History: Social History Socioeconomic History Marital status: Single Tobacco Use Smoking status: Some Days Types: Vaping/E-cigarettes Smokeless tobacco: Never Vaping Use Vaping status: Some Days Substances: Nicotine, THC Substance and Sexual Activity Alcohol use: Not Currently Drug use: Not Currently Sexual activity: Defer Social Drivers of Health Food Insecurity: No Food Insecurity (05/31/2025) Hunger Screening Food Insecurity - Worry: Never True Food Insecurity - Inability: Never True Review of Systems: Review of Systems Physical Exam: ED Triage Vitals [05/31/251921] Temp Heart Rate Resp BP SpO2 36.6 ??C (97.8 ??F) 99 20 125/89 97 % Temp Source Heart Rate Source Patient Position BP Location FiO2 (%) Temporal Pulse Ox Sitting Left arm -- Vitals: 05/31/251921 BP: 125/89 Temp: 36.6 ??C (97.8 ??F) TempSrc: Temporal Pulse: 99 Resp: 20 SpO2: 97% Height: 167.6 cm (5' 6 ) Weight: 63.5 kg (140 lb) 97 Physical Exam Vitals reviewed. Exam conducted with a starchmaker present (scribe in room). HENT: Head: Normocephalic and atraumatic. Eyes: Conjunctiva/sclera: Conjunctivae normal. Cardiovascular: Rate and Rhythm: Normal rate. Pulmonary: Effort: Pulmonary effort is normal. Breath sounds: Normal breath sounds. Abdominal: General: There is no distension. Palpations: Abdomen is soft. Genitourinary: Testes: Right: Swelling not present. Left: Swelling not present. Comments: Irritation on glands of penis. No signs of infection on penis. No palpable lymph nodes. Musculoskeletal: General: Normal range of motion. Cervical back: Normal range of motion and neck supple. Skin: General: Skin is warm and dry. Neurological: General: No focal deficit present. Mental Status: He is alert and oriented to person, place, and time. GCS: GCS eye subscore is 4. GCS verbal subscore is 5. GCS motor subscore is 6. Procedure: Procedures Re-evaluation: Re-Evaluation Medical Decision Making Amount and/or Complexity of Data Reviewed Labs: ordered. ED Course: ED Course as of 05/31/252227May 31, 20252227 Patient offered empiric treatment for possible STDs and declined. No concerning features for genital warts or genital herpes on clinical exam. [PALMA] ED Course User Index [PALMA] Chase Saxena MD Clinical Impressions as of 05/31/252227 Concern about STD in male without diagnosis . ED Disposition ED Disposition Discharge Date/Time SatMay 31, 2025 7:56 PM Comment At the time of discharge, the plan has been discussed with the patient regarding the diagnosis and prognosis. All questions have been answered. Verbal discharge instructions were discussed with the patient. The patient has been advised to follow up w ith their Primary Care Provider within 1-2 days.The patient was also instructed to return to the ED if their symptoms change, worsen, new symptoms a rise or if they have any additional concerns. . Please note that portions of this note were completed with a voice recognition program. Efforts were made to edit the dictations but occasionally words are mis-transcribed. Graham Tucker 05/31/251957 Graham Tucker 05/31/252004 Chase Saxena MD 05/31/252227 documented in this encounter Plan of Treatment Not on file documented as of this encounter Visit Diagnoses Diagnosis Concern about STD in male without diagnosis- Primary documented in this encounter Care Teams Team MemberRelationshipSpecialtyStart DateEnd Rell Guy MD [address] [place] [address] PCP - GeneralFamily Medicine09/07/24documented as of this encounter
--- OUTSIDE RECORDS SUMMARY | 2025-06-13 10:54 | XMS_ITS | Encounter Summary ---
Author Organization [employer] [facility] tem Address [id number] [address] [place] [address] Care Team Providers Care Roustabout Crew Pusher Name Role Phone Randy Guy MD Primary Care Provider [phone] Reason for Referral * Misc (Routine) - Pending ReviewSpecialtyDiagnoses / ProceduresReferred By ContactReferred To Contact Procedures Discharge Follow-Up Sharon Lepe APRN-CNP [address] [place] [address] Phone: tel: fax: Referral IDStatusReasonStart DateExpiration DateVisits RequestedVisits [id number] [id number] * Misc (Routine) - Pending ReviewSpecialtyDiagnoses / ProceduresReferred By ContactReferred To Contact Diagnoses ADILSON (acute kidney injury) Procedures Follow-up with primary care provider Sharon Lepe APRN-CNP [address] [place] [address] Phone: tel: fax: Referral IDStatusReasonStart DateExpiration DateVisits RequestedVisits [id number] * Misc (Routine) - Pending ReviewSpecialtyDiagnoses / ProceduresReferred By ContactReferred To Contact Procedures Adult diet Sharon Lepe APRN-CNP [address] [place] [address] Phone: tel: fax: Referral IDStatusReasonStart DateExpiration DateVisits RequestedVisits [id number] * Consultation (Routine) - Pending ReviewSpecialtyDiagnoses / ProceduresReferred By ContactReferred To ContactNeurosurgery Diagnoses Acute nonintractable headache, unspecified headache type Sharon Lepe APRN-CNP [address] [place] [address] Phone: tel: fax: Wilver Munroe MD [address] [address] Phone: tel: fax: Referral IDStatusReasonStart DateExpiration DateVisits RequestedVisits [id number] Review Specialty Services Required * Consultation (Routine) - Pending ReviewSpecialtyDiagnoses / ProceduresReferred By ContactReferred To ContactGastroenterology Diagnoses Abdominal pain, vomiting, and diarrhea Sharon Lepe APRN-CNP [address] [place] [address] Phone: tel: fax: Krishna Gray MD [address] [facility], [address] [place] [address] Phone: tel: fax: Referral IDStatusLucho DateExpiration DateVisits RequestedVisits [id number] Review Specialty Services Required Reason for Visit * ReasonCommentsNauseaHeadachePatient c/o nausea and vomiting for 2-3 weeks. Patient states he is concerned about his loss of appetite and weight loss. Patient also c/o headache that started 2 days ago. Patient states pain starts in the back on neck * Auth/CertSpecialtyDiagnoses / ProceduresReferred By ContactReferred To Contact Diagnoses ADILSON (acute kidney injury) [facility] - [facility] [address] [place] [address] Phone: tel: fax: Referral IDStatusSugeyasonKirtland DateExpiration DateVisits RequestedVisits [id number] Encounter Details DateTypeDepartmentCare Team (Latest Contact Info)Ozhbfrmxktw86/26/2025 10:54 AM EDT - 06/14/2025 2:46 PM EDTHospital Encounter [facility] [address] [place] [phone] Brock Jay, [address] [place] [address] Oumar Salinas MD [address], [facility] [address] [place] [address] Elizabeth Mendenhall MD [address], [facility] [address] [place] [address] ADILSON (acute kidney injury) (Primary Dx); Acute nonintractable headache, unspecified headache type; Abdominal pain, vomiting, and diarrhea Discharge Disposition: Home Social History Tobacco UseTypesPacks/DayYears UsedDateSmoking Tobacco: Some Days Vaping/E-cigarettesSmokeless Tobacco: Current Tobacco Cessation:Ready to Q uit: Not Asked; Counseling Given: Not Answered Alcohol UseStandard Drinks/WeekCommentsNot Currently0 (1 standard drink = 0.6 oz pure alcohol)ChildcareAnswerDate AktayhupVqggytxqkGbwmdst47/12/2019Employment AnswerDate FvivcpjgClmbirqtdhBeltuon06/12/2019Hunger ScreeningAnswerDate RecordedWithin the past 12 months we worried whether our food would run out before we got money to buy more.Never True06/14/2025Within the past 12 months the food we bought just didn't last and we didn't have money to get more.Never True06/14/2025Purpose - LifeAnswerDate RecordedPurpose and direction in life Jybeieu9609/29/2020ex and Gender InformationValueDate RecordedSex Assigned at BryvgNtff22/26/2022 2:51 PM EDTLegal GekEoec4103/24/2015 11:35 AM EDTGender ZofuyfscWmrl21/26/2022 2:51 PM EDTSexual TudywctqttfVnqdzqii03/26/2022 2:51 PM EDTdocumented as of this encounter Last Filed Vital Signs Vital SignReadingTime TakenCommentsBlood Kptxjonm096/7806/14/2025 11:48 AM EDT Ixoyr980906/14/2025 11:48 AM WITYkbqpfddona93.8 ??C (98.2 ??F)06/14/2025 11:48 AM EDTRespiratory Qpuq8088 11:48 AM EDTOxygen Fdjekcvdup36%06/14/2025 11:48 AM EDTInhaled Oxygen Concentration--Afgqem11.6 kg (140 lb 3.2 oz)06/14/2025 4:09 AM HZEHblkqb888.6 cm (5' 6 )06/13/2025 4:42 PM EDTBody [...] GUY MD PCP - General Family Medicine [phone] [facility] [address] Pt. should bring the following to appointment; [...] For NEW patients, MD will not prescribe adjunct faculty for medical terminology pain medication. documented in this encounter Medications [...] from the original note were not included. [facility] [address] [facility] [phone] Hospital Medicine History & Physical Patient: Leonardo [...] Procedure Abnormality Status --------- ------ Light Blue Top[[id number]] Final result Please view results for these [...] Procedure Abnormality Status --------- ------ Light Blue Top[[id number]] Final result Please view results for these [...] (acute kidney injury) Active Problems: Substance abuse ([facility]) Hepatitis C ASSESSMENT & PLAN Acute kidney [...] Anticipated Today CRISTI Dutta 06/14/2025 10:27 AM [facility] Internal Medicine 7AM-7PM & 7PM-7AM: EpicChat or [...] from the original note were not included. [facility] - EMERGENCY Pt Name: Leonardo Roach [...] I, Dr. Brock Jay personally performed a tmaj-ww-qevw diagnostic evaluation on this patient. Ipersonally made [...] Kathia Mary, FELIPE-LAM 06/13/25 1141 Kathia Mary, FELIPE-LAM 06/13/25 1202 Brock Jay, 06/13/25 1205 Brocklamine [...] page the on-call provider for Blood Management. [facility] Bloodless [facility] Mike Ku [place] [address], [address] [place] [address] Office: [phone] * PT/OT/COMPUTER SYSTEM TECHNICIAN - STACI Mansfield/L - 06/14/2025 1:02 PM EDT Occupational Therapy OT Type of Visit: Discharge from Therapy per chart review pt is moving at baseline and denies therapy needs. OT to complete order at this time. * PT/OT/COMPUTER SYSTEM TECHNICIAN - Joyce Campos, PT - 06/14/2025 9:58 [...] 06/15/2025 Discharge Planning Assessment completed via phone. Tool Programmer identified self and role to the patient. [...] Services No Community Agencies Currently Utilized [facility] [place] Community Referrals / Resources Provided Denies needs [...] documented in this encounter Plan of Treatment NameTypePriorityAssociated DiagnosesOrder ScheduleAmbulatory referral to GastroenterologyOutpatient ReferralRoutine [...] Procedure NamePriorityDate/TimeAssociated DiagnosisCommentsMR BRAIN W WO CONT Nbdvkfl8906/14/2025 11:24 AM EDT EXTRA TUBES BLUE CYIUopjkou95/27/2025 4:48 AM EDT EXTRA HRRHMErcosln22/27/2025 4:48 AM EDT CBC WITH AUTO LDSDTTVLAZSOVeheqeq05/27/2025 4:48 AM EDT ORAZHICGCIqdnqqn62/27/2025 4:48 AM EDT COMPREHENSIVE METABOLIC HNUEVQlitttd50/27/2025 4:48 AM EDT COMPREHENSIVE METABOLIC DKEVYOLXZ57/26/2025 1:[address] CERVICAL SPINE WO OSFNRXIS39/26/2025 12:[address] BRAIN WO PRJDCGMO49/26/2025 12:14 PM EDT CBC WITH AUTO VMIKZXCMGZRGBTZO50/ 11:28 AM EDT XPNNLMQHDFLRV04/26/2025 11:28 AM EDT COMPREHENSIVE METABOLIC HLADLCLYP27/26/2025 11:28 AM EDT EXTRA TUBES BLUE FLUDknmolg36/26/2025 11:27 AM EDT EXTRA FJZQKKxylhpv31/26/2025 11:27 AM EDT documented in this encounter [...] 11:37 AM Authorizing ProviderResult TypeResult StatusTaeler Roberth [place] MRI ORDERABLESFinal Result * Light Blue Top (06/14/2025 4:48 AM EDT)ComponentValueRef RangeTest Method Analysis TimePerformed AtPathologist SignatureExtra TubeAuto Resulted 06/14/2025 7:01 AM EDTPROMEDGOOD SAMARITAN HOSPITALpecimen (Source) Anatomical Location / LateralityCollection Method / VolumeCollection Time Received TimeBloodVenous blood / Bgddrip9606/14/2025 4:48 AM EDT1 6:19 AM EDT Narrative Authorizing ProviderResult TypeResult StatusRusami ZAZUETA BLOOD ORDERABLESFinal ResultPerforming OrganizationAddressCity/State/ZIP CodePhone Number [facility] [address] [place] [address], [place] * (ABNORMAL) CBC auto differential (06/14/2025 4:48 AM EDT)ComponentValueRef RangeTest MethodAnalysis TimePerformed AtPathologist SignatureWBC5.64 - 11 x10E9/L10 5:31 AM EDTPKETTERING HEALTH BEHAVIORAL MEDICAL CENTERRBC Count4.04 (L)4.1 - 5.7 X10E12/L10 5:31 AM [facility]AD[facility] Juchpkjwgb96.4(L)13 - 17 g/dL06/14/2025 5:31 AM EDADENA REGIONAL MEDICAL CENTERHematocrit35.9(L)39 - 50 %06/14/2025 5:31 AM EDADENA [facility]IONAL MEDICAL CENTERMCV8980 - 100 fL06/14/2025 5:31 AM EDADENA [facility]IONAL MEDICAL CENTERMCH30.727 - 34 pg06/14/2025 5:31 AM EDADENA REGIONAL MEDICAL CENTERMCHC34.532 - 36 g/dL06/14/2025 5:31 AM EDADENA REGIONAL MEDICAL CENTERRDW13.311.5 - 15 %06/14/2025 5:31 AM EDADENA REGIONAL MEDICAL CENTERPlatelet Swyxk159272 - 450 X10E9/L1 5:31 AM EDT [facility]MPV8.47 - 12 fL06/14/2025 5:31 AM EDT [facility]ITALNeutrophils %82.8%06/14/2025 5:31 AM EDT [facility]ITALLymphocytes %11.5%06/14/2025 5:31 AM EDT [facility]ITALMonocytes %5.3%06/14/2025 5:31 AM EDT [facility]ITALEosinophils %0.1%06/14/2025 5:31 AM EDT [facility]ITALBasophils %0.3%06/14/2025 5:31 AM EDT [facility]PITALNeutrophils Absolute (A)4.71.5 - 6.6 10*3/uL06/14/2025 5:31 AM EDTPKETTERING HEALTH BEHAVIORAL MEDICAL CENTERLymphocytes Absolute0.6(L)1.0 - 3.5 10*3/uL06/14/2025 5:31 AM EDMERCY [facility]ALTH HOSPITALMonocytes Absolute0.30.0 - 0.9 10*3/uL06/14/2025 5:31 AM EDT [facility]ITALEosinophils Absolute0.00.0 - 0.4 10*3/uL 06/14/2025 5:31 AM EDADENA REGIONAL MEDICAL CENTERBasophils Absolute0.0 0.0 - 0.2 10*3/uL06/14/2025 5:31 AM [facility] Differential TypeAUTOMATED LDZOECXUQZSJ06/27/2025 5:31 AM [facility] (Source)Anatomical Location / LateralityCollection Method / VolumeCollection TimeReceived TimeBloodVenous blood / Unknown Venipuncture / Tbrpbth4706/14/2025 4:48 AM EDT1 5:25 AM EDT Narrative Authorizing ProviderResult TypeResult StatusTaeler Roberth GARCIANTomorrowishLAB BLOOD ORDERABLESFinal ResultPerforming OrganizationAddressCity/State/ZIP CodePhone Number [address] [place] [address], [place] * Magnesium (06/14/2025 4:48 AM EDT)ComponentValueRef RangeTest MethodAnalysis TimePerformed AtPathologist SignatureMAGNESIUM2.01.8 - 2.6 mg/dL06/14/2025 5:56 AM [facility] (Source)Anatomical Location / LateralityCollection Method / VolumeCollection TimeReceived Time BloodVenous blood / UnknownVenipuncture / Yqqtqyy4706/14/2025 4:48 AM EDT 06/14/2025 5:26 AM EDT Narrative Authorizing ProviderResult TypeResult StatusTaeler Roberth DEPARTMENT STORE MANAGER-CNPLAB BLOOD ORDERABLESFinal ResultPerforming OrganizationAddressCity/State/ZIP CodePhone Number [address] [address], [place] * (ABNORMAL) Comprehensive metabolic panel (06/14/2025 4:48 AM EDT)Component ValueRef RangeTest MethodAnalysis TimePerformed AtPathologist SignatureSODIUM 921087 - 146 mmol/L1 5:56 AM [facility] POTASSIUM3.93.5 - 5.0 mmol/L1 5:56 AM [facility] HOSPITALCHLORIDE10598 - 109 mmol/L1 5:56 AM EDADENA [facility]IONAL MEDICAL CENTERCARBON VSGILDC7514 - 32 mmol/L1 5:56 AM EDADENA REGIONAL MEDICAL CENTERANION GAP95 - 15 mmol/L1 5:56 AM EDT [facility]OSPITALBLOOD UREA VPBJAKRY194 - 23 mg/dL06/14/2025 5:56 AM [facility] HOSPITALCREATININE1.030.70 - 1.20 mg/dL 06/14/2025 5:56 AM [facility]OSPITALComment:METHOD TRACEABLE TO IDMS JQJKQEVFAHHSYZW244(H)65 - 99 mg/dL06/14/2025 5:56 AM EDT [facility]OSPITALCALCIUM8.2(L)8.5 - 10.5 mg/dL06/14/2025 5:56 AM [facility]OSPITALTOTAL PROTEIN6.16.0 - 8.0 g/dL 06/14/2025 5:56 AM [facility] HOSPITALALBUMIN3.33.2 - 5.3 g/dL06/14/2025 5:56 AM [facility] HOSPITALALKALINE SZOSGYOSEEF6424 - 130 U/L1 5:56 AM [facility]OS[facility]ITALAST69(H)<=41 U/L1 5:56 AM EDADENA REGIONAL MEDICAL CENTERALT148(H)<=40 U/L1 5:56 AM [facility] HOSPITALBILIRUBIN,TOTAL0.40.3 - 1.2 mg/dL06/14/2025 5:56 AM [facility] HOSPITALEGFR Non-Race Dependent>90>=60 ml/min/1.73sq.m 06/14/2025 5:56 AM [facility] HOSPITALComment: eGFR not reported due to non-numeric value for Creatinine. Reported eGFR is based on the CKD-EPI 2020 equation that does not use a race coefficient. Specimen (Source)Anatomical Location / LateralityCollection Method / Volume Collection TimeReceived TimeBloodVenous blood / UnknownVenipuncture / Unknown 06/14/2025 4:48 AM EDT1 5:26 AM EDT Narrative Authorizing ProviderResult TypeResult StatusTaeler Roberth DEPARTMENT STORE MANAGER-CNPLAB BLOOD ORDERABLESFinal ResultPerforming OrganizationAddressCity/State/ZIP CodePhone Number [facility] [address] [place] [address], * (ABNORMAL) Comprehensive metabolic panel (06/13/2025 1:38 PM EDT)Component ValueRef RangeTest MethodAnalysis TimePerformed AtPathologist SignatureSODIUM 103256 - 146 mmol/L1 2:11 PM EDAD[facility] POTASSIUM3.83.5 - 5.0 mmol/L1 2:11 PM EDADENA REGIONAL MEDICAL CENTERCHLORIDE9998 - 109 mmol/L1 2:11 PM EDADENA REGIONAL MEDICAL CENTERCARBON TOZIPKF4679 - 32 mmol/L1 2:11 PM EDADENA REGIONAL MEDICAL CENTERANION GAP95 - 15 mmol/L1 2:11 PM EDT [facility]PITALBLOOD UREA SHIHPBGS387 - 23 mg/dL06/13/2025 2:11 PM EDADENA REGIONAL MEDICAL CENTERCREATININE1.22(H)0.70 - 1.20 mg/dL06/13/2025 2:11 PM EDADENA REGIONAL MEDICAL CENTERComment:METHOD TRACEABLE TO IDMS AWHTTBKOAZTTCDF700(H)65 - 99 mg/dL06/13/2025 2:11 PM EDT [facility]OSPITALCALCIUM8.1(L)8.5 - 10.5 mg/dL06/13/2025 2:11 PM EDTPKETTERING HEALTH BEHAVIORAL MEDICAL CENTERTOTAL PROTEIN6.36.0 - 8.0 g/dL 06/13/2025 2:11 PM EDADENA REGIONAL MEDICAL CENTERALBUMIN3.53.2 - 5.3 g/dL06/13/2025 2:11 PM [facility]OSPITALALKALINE HOWYHQKSPNN4734 - 130 U/L1 2:11 PM EDADENA REGIONAL MEDICAL CENTERAST91(H)<=41 U/L1 2:11 PM EDADENA REGIONAL MEDICAL CENTERALT169(H)<=40 U/L1 2:11 PM [facility] HOSPITALBILIRUBIN,TOTAL1.20.3 - 1.2 mg/dL06/13/2025 2:11 PM [facility] HOSPITALEGFR Non-Race Aayguznsy66>=60 ml/min/1.73sq.m 06/13/2025 2:11 PM [facility]OSPITALComment: eGFR not reported due to non-numeric value for Creatinine. Reported eGFR is based on the CKD-EPI 2020 equation that does not use a race coefficient. Specimen (Source)Anatomical Location / LateralityCollection Method / Volume Collection TimeReceived TimeBloodVenous blood / UnknownVenipuncture / Unknown 06/13/2025 1:38 PM EDT1 1:53 PM EDT Narrative Authorizing ProviderResult TypeResult StatusJessjessica Mary DEPARTMENT STORE MANAGER-CNPLAB BLOOD ORDERABLESFinal ResultPerforming OrganizationAddressCity/State/ZIP CodePhone Number [facility] [address] [facility] [place] [address], * CT cervical spine without contrast (06/13/2025 [...] images are obtained. All CT scans at [facility] use dose modulation, iterative reconstruction, and/or [...] on 06/13/2025 12:22 PM Authorizing ProviderResult TypeResult StatusJessjessica Mary DEPARTMENT STORE MANAGER-[facility] CT ORDERABLESFinal Result * CT brain without [...] on 06/13/2025 12:17 PM Authorizing ProviderResult TypeResult StatusJessjessica Mary DEPARTMENT STORE MANAGER-CNPIMG CT ORDERABLESFinal Result * Magnesium (06/13/2025 11:28 AM EDT)ComponentValueRef RangeTest MethodAnalysis TimePerformed AtPathologist SignatureMAGNESIUM2.11.8 - 2.6 mg/dL06/13/2025 12:43 PM EDBLUFFTON HOSPITALpecimen (Source)Anatomical Location / LateralityCollection Method / VolumeCollection TimeReceived Time BloodVenous blood / UnknownVenipuncture / Bvewpbw5406/13/2025 11:28 AM EDT 06/13/2025 11:30 AM EDT Narrative Authorizing ProviderResult TypeResult StatusJegriselda Mary DEPARTMENT STORE MANAGER-CNPLAB BLOOD ORDERABLESFinal ResultPerforming OrganizationAddressCity/State/ZIP CodePhone Number [facility] [address] [facility] [place] [address], * (ABNORMAL) Comprehensive metabolic panel (06/13/2025 11:28 AM EDT)Component ValueRef RangeTest MethodAnalysis TimePerformed AtPathologist SignatureSODIUM 131(L)134 - 146 mmol/L1 12:43 PM [facility]OSPITALPOTASSIUM3.53.5 - 5.0 mmol/L1 12:43 PM [facility]OSPITALCHLORIDE95(L)98 - 109 mmol/L1 12:43 PM [facility]OSPITALCARBON THXLUZD3493 - 32 mmol/L1 12:43 PM EDT [facility]ITALANION IGO418 - 15 mmol/L1 12:43 PM EDADENA REGIONAL MEDICAL CENTERBLOOD UREA OXPYBFDS345 - 23 mg/dL 06/13/2025 12:43 PM [facility]OSPITALCREATININE1.42(H) 0.70 - 1.20 mg/dL06/13/2025 12:43 PM [facility] Comment:METHOD TRACEABLE TO IDMS HZFOJVBWZJHOMMV399(H)65 - 99 mg/dL06/13/2025 12:43 PM [facility] HOSPITALCALCIUM8.4(L)8.5 - 10.5 mg/dL 06/13/2025 12:43 PM [facility]OSPITALTOTAL PROTEIN6.76.0 - 8.0 g/dL06/13/2025 12:43 PM [facility]OSPITALALBUMIN3.8 3.2 - 5.3 g/dL06/13/2025 12:43 PM [facility] ALKALINE JCBCJLIWBXF4079 - 130 U/L1 12:43 PM [facility]OS[facility]ITALAST100(H)<=41 U/L1 12:43 PM [facility]ALT183(H)<=40 U/L1 12:43 PM [facility] HOSPITALBILIRUBIN,TOTAL1.3(H)0.3 - 1.2 mg/dL06/13/2025 12:43 PM EDT [facility]ITALEGFR Non-Race Qaokgyqtm63>=60 ml/min/1.73sq.m1 12:43 PM [facility] Comment: eGFR not reported due to non-numeric value for Creatinine. Reported eGFR is based on the CKD-EPI 2020 equation that does not use a race coefficient. Specimen (Source)Anatomical Location / LateralityCollection Method / Volume Collection TimeReceived TimeBloodVenous blood / UnknownVenipuncture / Unknown 06/13/2025 11:28 AM EDT1 11:30 AM EDT Narrative Authorizing ProviderResult TypeResult StatusJessica Amanda Mary DEPARTMENT STORE MANAGER-CNPLAB BLOOD ORDERABLESFinal ResultPerforming OrganizationAddressCity/State/ZIP CodePhone Number [facility] [address] [facility] [place] [address], * (ABNORMAL) CBC auto differential (06/13/2025 11:28 AM EDT)ComponentValueRef RangeTest MethodAnalysis TimePerformed AtPathologist SignatureWBC4.74 - 11 x10E9/L1 11:53 AM [facility] HOSPITALRBC Count4.36 4.1 - 5.7 X10E12/L1 11:53 AM EDAD[facility] Cmipuegqyw98.113 - 17 g/dL06/13/2025 11:53 AM EDTPKETTERING HEALTH BEHAVIORAL MEDICAL CENTERHematocrit38.3(L)39 - 50 %06/13/2025 11:53 AM EDADENA REGIONAL MEDICAL CENTERMCV8880 - 100 fL06/13/2025 11:53 AM EDTPKETTERING HEALTH BEHAVIORAL MEDICAL CENTERMCH30.127 - 34 pg06/13/2025 11:53 AM EDADENA REGIONAL MEDICAL CENTERMCHC34.332 - 36 g/dL06/13/2025 11:53 AM EDTPKETTERING HEALTH BEHAVIORAL MEDICAL CENTERRDW13.311.5 - 15 %06/13/2025 11:53 AM EDADENA REGIONAL MEDICAL CENTERPlatelet Urqci570242 - 450 X10E9/L1 11:53 AM EDT [facility]ITALMPV7.77 - 12 fL06/13/2025 11:53 AM EDT [facility]ITALNeutrophils %50.9%06/13/2025 11:53 AM EDT [facility]ITALLymphocytes %36.6%06/13/2025 11:53 AM EDT [facility] HOSPITALMonocytes %10.8%06/13/2025 11:53 AM EDT [facility] HOSPITALEosinophils %1.3%06/13/2025 11:53 AM EDT [facility]ITALBasophils %0.4%06/13/2025 11:53 AM EDT [facility]OSPITALNeutrophils Absolute (A)2.41.5 - 6.6 10*3/uL06/13/2025 11:53 AM EDTPKETTERING HEALTH BEHAVIORAL MEDICAL CENTERLymphocytes Absolute1.71.0 - 3.5 10*3/uL06/13/2025 11:53 AM EDTPKETTERING HEALTH BEHAVIORAL MEDICAL CENTERMonocytes Absolute0.50.0 - 0.9 10*3/uL06/13/2025 11:53 AM EDADENA [facility]ION[facility] MEDICAL CENTEREosinophils Absolute0.10.0 - 0.4 10*3/uL06/13/2025 11:53 AM [facility]OS[facility]ITALBasophils Absolute0.00.0 - 0.2 10*3/uL06/13/2025 11:53 AM [facility]OSPITALDifferential TypeAUTOMATED DBPSDTBLGLRU70/26/2025 11:53 AM [facility] (Source)Anatomical Location / LateralityCollection Method / VolumeCollection TimeReceived TimeBloodVenous blood / UnknownVenipuncture / Mwyilyu1906/13/2025 11:28 AM EDT1 11:30 AM EDT Narrative Authorizing ProviderResult TypeResult StatusJessjessica Mary DEPARTMENT STORE MANAGER-CNPLAB BLOOD ORDERABLESFinal ResultPerforming OrganizationAddressCity/State/ZIP CodePhone Number [address] [place] [address], * Light Blue Top (06/13/2025 11:27 AM EDT)ComponentValueRef RangeTest Method Analysis TimePerformed AtPathologist SignatureExtra TubeAuto Resulted 06/13/2025 1:01 PM [facility] (Source) Anatomical Location / LateralityCollection Method / VolumeCollection Time Received TimeBloodVenous blood / Szbrmrz1206/13/2025 11:27 AM EDT1 11:30 AM EDT Narrative Authorizing ProviderResult TypeResult StatusBrock GOODEAB BLOOD ORDERABLESFinal ResultPerforming OrganizationAddressCity/State/ZIP CodePhone Number [address] [address], documented in this encounter Visit Diagnoses Diagnosis ADILSON (acute kidney injury)- Primary ADILSON (acute kidney injury) Acute nonintractable headache, unspecified headache type Abdominal pain, vomiting, and diarrhea Substance abuse ([facility]) Other, mixed, or unspecified nondependent drug abuse, [...] mg) in 24 hours] Given06/13/2025 8:40 PM WKU409 mg alum-mag hydroxide-simeth (MAALOX) 200-200-20 mg/5 mL suspension 30 mL 30 mL, oral, 4 times daily after meals and at bedtime as needed, dyspepsia, Starting on Sat06/13/25 at 1613, Look-alike/sound-alike medication - verify indication for use. Jose Juan ortiz., Indications: dyspepsia Indications:dyspepsia cyclobenzaprine (FLEXERIL) tablet 10 mg 10 mg, oral, Every 8 hours PRN, muscle spasms, Starting on Sat06/13/25 at 1723 dexAMETHasone sodium phos (PF) (DECADRON) injection 10 mg 10 mg, oral, Once, On Sat06/13/25 at 1118, For 1 dose, DexAMETHasone injection for ORAL use. May mix injection with oral flavored syrup. Administer immediately. May alter blood glucose or insulin requirements. Look-alike/sound-alike medication - verify indication for use. Given06/13/2025 11:33 AM EDT10 mg diphenhydrAMINE (BENADRYL) injection 25 mg 25 mg, intravenous, Once, On Sat06/13/25 at [...] (RED), Indications: magnetic resonance imaging Indications:magnetic resonance sbtxvjjYdunp34/27/2025 11:21 AM EDT6.36 mmol ketorolac (TORADOL) injection [...] in imaging, line care, MRI, Starting on 06/14/25 at 1053, For 1 dose Given06/14/2025 11:21 AM EDT10 mL sodium chloride 0.9 % flush 3 mL 3 mL, intravenous, As needed, line care, before and after each intermittent use, Starting on 06/13/25 at 1613 sodium chloride 0.9 % flush 3 mL 3 mL, intravenous, Every 12 hours scheduled, First dose on Sat06/13/25 at 2100 Given06/13/2025 8:41 PM EDT3 mL sodium chloride 0.9 % infusion 100 mL/hr, intravenous, Continuous, Starting on Sat06/13/25 at 1614, For 1 day New Bag06/14/2025 5:56 AM YKW808 mL/hr100 mL/hrNew Bag06/13/2025 4:49 PM NZT218 mL/hr100 mL/hrdocumented in this encounter Active and Recently Administered Medications Times are shown in EDT.Medication Order06/12// dexAMETHasone sodium phos (PF) (DECADRON) injection 10 [...] hours. * 1135 (Given - Provider: Ave [place], PREMA) prochlorperazine (COMPAZINE) injection 5 mg (COMPLETED) 5 mg, intravenous, Once, On Sat06/13/25 at 1118, For 1 dose, When administered via IV Push, do notexceed 5 mg per minute * 1137 (Given - Provider: Ave Oh RN) sodium chloride 0.9 % bolus (COMPLETED) 1,000 mL, intravenous, at 984 mL/hr, Administer over 61 Minutes, Once, On Sat06/13/25 at 1118, For1 dose * 1133 (New Bag - Provider: Ave Oh RN) * 1246 (Stop Bag - Provider: Ave Oh RN) sodium chloride 0.9 % flush 3 mL 3 mL, intravenous, Every 12 hours scheduled, First dose on 06/13/25 at 2100 * 2041 (Given - Provider: Samantha Elliott, PREMA) * 1200 (Not Given - Provider: Lilian Evans RN - Reason: IV infusing) Medication Order sodium chloride 0.9 % infusion 100 mL/hr, intravenous, Continuous, Starting on 06/13/25 at 1614, For 1 day * 1649 (New Bag - Provider: Lgoan Roach RN) * 0556 (New Bag - Provider: Samantha Elliott, PREMA) * 1646 (Due: Order Ending - Provider: Automatic Discharge Provider - Comment: [Order ends at this time. Document the following action when infusion is complete: Stop Bag]) Medication Order acetaminophen (TYLENOL) tablet 650 mg 650 mg, oral, Every 6 hours PRN, mild pain - pain scale 1-3, temperature greater than 38 C, Starting on 06/13/25 at 1613, [Warning: Total Acetaminophen not to exceed more than 4 grams (4000 mg) in 24 hours] * 2040 (Given - Provider: Samantha Elliott, PREMA) alum-mag hydroxide-simeth (MAALOX) 200-200-20 mg/5 mL suspension 30 mL 30 mL, oral, 4 times daily after meals and at bedtime as needed, dyspepsia, Starting on Sat06/13/25 at 1613, Look-alike/sound-alike medication - verify indication for use. Shake well., Indications: dyspepsia cyclobenzaprine (FLEXERIL) tablet 10 mg [...] (Given - Provider: Yarely Navarrete - Comment: [id number]) ondansetron (PF) (ZOFRAN) injection 4 mg 4 [...] this encounter Care Teams Team MemberRelationshipSpecialtyStart DateEnd Randy Guy MD [address] [place] [address] PCP - GeneralFamily Medicine09/07/24documented as of this encounter
--- OUTSIDE RECORDS SUMMARY | 2025-06-14 10:30 | XMS_ITS ---
Author Organization Replaced By [facility] vices Address [address] [place] [id number] Care Team Providers Care Cellophane Press Operator Name Role Phone Nate Bella Unavailable [phone] REASON FOR VISIT manager inpatient-stomach issues Encounters Encounter Location Date Provider Diagnosis Main [address] [place] [id number] 06/14/2025 Bella Sullivan Plan Of Treatment No Information Progress Notes * Leonardo RANDDOB:[birth year] (40 yo M)Acc No.[id number]:06/14/2025 Patient:?Leonardo RAND :?Bella Sullivan, MDDOB:1985???Age:40 Y???Sex: MaleDate:06/14/2025Phone:[phone]:[address] , [address], [place], [id number] Subjective: * Chief Complaints: * 1 . 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 * Medical History: Objective: * Vitals: Assessment: Plan: * Treatment: * Billing Information: * Visit Code: * Procedure Codes: * Electronic signature of Bella Sullivan MD on 06/15/2025 at 04:27 PM EDTSign off status: Pending * Provider: Mackenzie Sullivan MD Date: 1 Generated for Printing/Faxing/eTransmitting on:?06/15/2025 04:27 PM EDT
--- OUTSIDE RECORDS SUMMARY | 2025-06-15 16:28 | XMS_ITS | Patient Health Record ---
Author Organization [facility] vices Address [address] [place], [place] [id number] Care Team Providers Care Business Travel Consultant Name Role Phone Bella Sullivan Unavailable [phone] Reason For Referral No Information Plan Of Treatment No Information Insurance Providers Payer Name Payer Address Payer Phone Subscriber Number Group Number Insured Name Patient Relationship to Insured Coverage Start Date Coverage End Date [facility] [address] [place] [id number] Anastacio Roachelf - patient is the [id number] 2024[facility] [address] [place], [place] [id number], ChanceSelf - patient is the insurededicchildren[facility] [place] [facility]FC[facility] [address] [place], [place] [id number], Anastacioelf - patient is the insured 2024
--- OUTSIDE RECORDS SUMMARY | 2025-06-15 16:28 | XMS_ITS | Clinical Summary ---
Author Organization [employer] tem Address [id number] [address] [place] [address] Care Team Providers Care Budget Accountant Name Role Phone Rell Guy MD Primary Care Provider [phone] Allergies Active AllergyReactionsCriticalityNoted BfzmNuyzrjvdHudgcdbjrs03/26/2025 Other Reaction(s): SISTER HAS ALLERGY Medications MedicationSigDispense QuantityRefillsLast FilledStart DateEnd DateStatus buprenorphine-naloxone (SUBOXONE) 8-2 mg film Dissolve 1 Film on tongue in the morning.Active QUEtiapine (SEROquel) 50 mg tablet Take 1 tablet (50 mg total) by mouth nightly.Active aspirin 81 mg chewable tablet Chew 1 tablet (81 mg total) and swallow as needed for headaches.Active ARIPiprazole (ABILIFY) 20 mg tablet Take 1 tablet (20 mg total) by mouth in the morning.06/13/2025Discontinued (Ineffective) traZODone (DESYREL) 50 mg tablet Take 1 tablet (50 mg total) by mouth nightly.06/13/2025Discontinued(Ineffective) FLUoxetine (PROzac) 20 mg capsule Take 1 capsule (20 mg total) by mouth in the morning.06/13/2025Discontinued (Ineffective) acetaminophen (TylenoL) 325 mg tablet Take 2 tablets (650 mg total) by mouth every 6 (six) hours as needed for pain. 30 tablet Discontinued(Non-compliance) ibuprofen (MOTRIN) 600 mg tablet Take 1 tablet (600 mg total) by mouth every 6 (six) hours as needed for pain. 30 tablet Discontinued bacitracin zinc ointment Apply 1 Application topically in the morning and 1 Application before bedtime. 120 g Discontinued(Therapy completed) Active Problems ProblemNoted DateDiagnosed DateSubstance abuse06/14/2025Hepatitis 06/14/2025KI (acute kidney injury)06/13/2025 Encounters DateTypeDepartmentCare NptwCumrpjzjbmr17/26/2025 10:54 AM EDT - 06/14/2025 2:46 PM EDTHospital Encounter [facility] [address] [place] [address] Brock Jay DO Muhammad, Ruqiyya T, MD Shah, Jagruti Nimit, MD ADILSON (acute kidney injury) (Primary Dx); Acute nonintractable headache, unspecified headache type; Abdominal pain, vomiting, and diarrhea Discharge Disposition: Home06/13/20254352Alswcs01/13/2025 7:40 PM EDT - 05/31/2025 8:16 PM EDTEmergency [facility] Emergency [address] [place] [address] Chase Saxena MD Concern about STD in male without diagnosis (Primary Dx) Discharge Disposition: Home05/31/2025Travelfrom Last 3 Months Immunizations ImmunizationAdministration DatesNext SjiZtzt5101/06/2024(),07/31/2018 Social History Tobacco UseTypesPacks/DayYears UsedDateSmoking Tobacco: Some Days Vaping/E-cigarettesSmokeless Tobacco: Current Tobacco Cessation:Ready to Q uit: Not Asked; Counseling Given: Not Answered Alcohol UseStandard Drinks/WeekCommentsNot Currently0 (1 standard drink = 0.6 oz pure alcohol)ChildcareAnswerDate JyrxlwamJkfpbrnniEadejpc22/12/2019Employment AnswerDate QvlbceygClsxdnemhnCdydhjo12/12/2019Hunger ScreeningAnswerDate RecordedWithin the past 12 months we worried whether our food would run out before we got money to buy more.Never True06/14/2025Within the past 12 months the food we bought just didn't last and we didn't have money to get more.Never True06/14/2025Purpose - LifeAnswerDate RecordedPurpose and direction in life Pokvlxy6909/29/2020ex and Gender InformationValueDate RecordedSex Assigned at AvecyIgad13/26/2022 2:51 PM EDTLegal IjnEodq7103/24/2015 11:35 AM EDTGender BmldizqmYrlp21/26/2022 2:51 PM EDTSexual NkeyubcuztpHkgqzaka67/26/2022 2:51 PM EDT Last Filed Vital Signs Vital SignReadingTime TakenCommentsBlood Kmozsdbb799/7806/14/2025 11:48 AM EDT Ugaqn740306/14/2025 11:48 AM UVKJuiktokimmi38.8 ??C (98.2 ??F)06/14/2025 11:48 AM EDTRespiratory Zynl5791 11:48 AM EDTOxygen Oowjtpziov85%06/14/2025 11:48 AM EDTInhaled Oxygen Concentration--Visjcu49.6 kg (140 lb 3.2 oz)06/14/2025 4:09 AM FGMRvdarr786.6 cm (5' 6 )06/13/2025 4:42 PM EDTBody Mass Index22.6306/13/2025 4:42 PM EDT Plan of Treatment Health MaintenanceDue DateLast DoneCommentsTobacco Rtgsikxoqo1984 Depression Zwumtbqlm83/24/1996COVID-19 Vaccine ( season)2025 04/12/2021Influenza Blbbmbn06/04/2020, 05/25/2020, 05/26/2019, Additional history existsTobacco Tyeytoawt80dult BMI Ytyqfatez73DTaP,Tdap and Td Vaccines (4 - Td or Tdap) /08/2024, 07/31/2018, 01/24/2011 Goals GoalPatient Goal TypeAssociated ProblemsRecent ProgressPatient-Stated?Author Home with self care Allyson Ruby LSW Note: Evaluation of progress towards goal: Patient will return home with self care Medical Devices Not on file Procedures Procedure NamePriorityDate/TimeAssociated DiagnosisCommentsMR BRAIN W WO CONT Uudreki3306/14/2025 11:24 AM EDT EXTRA TUBES BLUE OPDPejjdei47/27/2025 4:48 AM EDT EXTRA SYQJDMxvqbnh32/27/2025 4:48 AM EDT CBC WITH AUTO TKFYUPSADPBDTaluaml88/27/2025 4:48 AM EDT KFSICSLKUOrfuexj77/27/2025 4:48 AM EDT COMPREHENSIVE METABOLIC VPEKAAoqsiop52/27/2025 4:48 AM EDT COMPREHENSIVE METABOLIC CTCBWOKNN83/26/2025 1:[address] CERVICAL SPINE WO GURULBHQ92/26/2025 12:[address] BRAIN WO UPMOJVTJ37/26/2025 12:14 PM EDT LDWRZGHMKSWSS03/26/2025 11:28 AM EDT COMPREHENSIVE METABOLIC UJIECOUZU90/26/2025 11:28 AM EDT CBC WITH AUTO AAQBCWXFBBORAKAT77/26/2025 11:28 AM EDT EXTRA TUBES BLUE JLWUztvsfx81/26/2025 11:27 AM EDT EXTRA QICEPVbyjnbb97/26/2025 11:27 AM EDT from Last 3 Months Results * MR brain with and without [...] findings to account for patientheadaches. Finalized by Sunedep Estevez MD on 06/14/2025 11:37 AM Authorizing ProviderResult TypeResult StatusTaeler Roberth INTERNAL MEDICINE HOSPITALIST-CNPG MRI ORDERABLESFinal Result * Light Blue Top (06/14/2025 4:48 AM EDT) Only the most recent of2 resultswithin the time period is included. ComponentValueRef RangeTest MethodAnalysis TimePerformed AtPathologist Signature Extra TubeAuto Ttarqpvr20/27/2025 7:01 AM [facility] Specimen (Source)Anatomical Location / LateralityCollection Method / Volume Collection TimeReceived TimeBloodVenous blood / Nyueoxp1906/14/2025 4:48 AM EDT 06/14/2025 6:19 AM EDT Narrative Authorizing ProviderResult TypeResult StatusRusami ZAZUETA BLOOD ORDERABLESFinal ResultPerforming OrganizationAddressCity/State/ZIP CodePhone Number [facility] [address] [place] [address], * (ABNORMAL) CBC auto differential (06/14/2025 4:48 AM EDT) Only the most recent of2 resultswithin the time period is included. ComponentValueRef RangeTest MethodAnalysis TimePerformed AtPathologist Signature WBC5.64 - 11 x10E9/L1 5:31 AM [facility] CENTERRBC Count4.04(L)4.1 - 5.7 X10E12/L1 5:31 AM [facility]ENTERHemoglobin12.4(L)13 - 17 g/dL06/14/2025 5:31 AM [facility]ENTERHematocrit35.9(L)39 - 50 %06/14/2025 5:31 AM EDMART[facility] HOSPITALMCV8980 - 100 fL06/14/2025 5:31 AM EDMARTIN [facility]ORIAL HOSPITALMCH30.727 - 34 pg06/14/2025 5:31 AM EDMARTIN [facility]ORIAL HOSPITALMCHC34.532 - 36 g/dL06/14/2025 5:31 AM EDMARTIN MEMORIAL HOSPITALRDW13.311.5 - 15 %06/14/2025 5:31 AM EDMARTIN MEMORIAL HOSPITALPlatelet Zykim237275 - 450 X10E9/L1 5:31 AM EDT [facility]ENTERMPV8.47 - 12 fL06/14/2025 5:31 AM EDT [facility]ENTERNeutrophils %82.8%06/14/2025 5:31 AM EDT [facility]ENTERLymphocytes %11.5%06/14/2025 5:31 AM EDT [facility]ITALMonocytes %5.3%06/14/2025 5:31 AM EDT [facility]ENTEREosinophils %0.1%06/14/2025 5:31 AM EDT [facility]ENTERBasophils %0.3%06/14/2025 5:31 AM EDT [facility]ENTERNeutrophils Absolute (A)4.71.5 - 6.6 10*3/uL 06/14/2025 5:31 AM EDTPSELECT MEDICAL SPECIALTY HOSPITAL - TRUMBULLLymphocytes Absolute0.6 (L)1.0 - 3.5 10*3/uL06/14/2025 5:31 AM [facility] Monocytes Absolute0.30.0 - 0.9 10*3/uL06/14/2025 5:31 AM EDTPSELECT MEDICAL SPECIALTY HOSPITAL - TRUMBULLEosinophils Absolute0.00.0 - 0.4 10*3/uL06/14/2025 5:31 AM EDT [facility]ENTERBasophils Absolute0.00.0 - 0.2 10*3/uL 06/14/2025 5:31 AM [facility]ENTERDifferential Type AUTOMATED HHPTAQHFULLP60/27/2025 5:31 AM [facility] Specimen (Source)Anatomical Location / LateralityCollection Method / Volume Collection TimeReceived TimeBloodVenous blood / UnknownVenipuncture / Unknown 06/14/2025 4:48 AM EDT1 5:25 AM EDT Narrative Authorizing ProviderResult TypeResult StatusTaeler Lepe INTERNAL MEDICINE HOSPITALISTTourjiveLAB BLOOD ORDERABLESFinal ResultPerforming OrganizationAddressCity/State/ZIP CodePhone Number [address] [address], [place] * Magnesium (06/14/2025 4:48 AM EDT) Only the most recent of2 resultswithin the time period is included. ComponentValueRef RangeTest MethodAnalysis TimePerformed AtPathologist Signature MAGNESIUM2.01.8 - 2.6 mg/dL06/14/2025 5:56 AM [facility]ITALpecimen (Source)Anatomical Location / LateralityCollection Method / VolumeCollection TimeReceived TimeBloodVenous blood / UnknownVenipuncture / Lohipok5906/14/2025 4:48 AM EDT1 5:26 AM EDT Narrative Authorizing ProviderResult TypeResult StatusTaeler Lepe INTERNAL MEDICINE HOSPITALIST-CNPLAB BLOOD ORDERABLESFinal ResultPerforming OrganizationAddressty/State/ZIP CodePhone Number [address] [place] [address], [place] * (ABNORMAL) Comprehensive metabolic panel (06/14/2025 4:48 AM EDT) Only the most recent of3 resultswithin the time period is included. ComponentValueRef RangeTest MethodAnalysis TimePerformed AtPathologist Signature ZYNGNK998328 - 146 mmol/L1 5:56 AM [facility] CENTERPOTASSIUM3.93.5 - 5.0 mmol/L1 5:56 AM [facility]ENTERCHLORIDE10598 - 109 mmol/L1 5:56 AM [facility] CENTERCARBON OUIQYQI4129 - 32 mmol/L1 5:56 AM EDT [facility]ENTERANION GAP95 - 15 mmol/L1 5:56 AM EDT [facility]ENTERBLOOD UREA PXKAFKYJ538 - 23 mg/dL06/14/2025 5:56 AM [facility] CENTERCREATININE1.030.70 - 1.20 mg/dL 06/14/2025 5:56 AM [facility] CENTERComment:METHOD TRACEABLE TO IDMS KPWKZVAJYPSDAWS002(H)65 - 99 mg/dL06/14/2025 5:56 AM EDT [facility] CENTERCALCIUM8.2(L)8.5 - 10.5 mg/dL06/14/2025 5:56 AM [facility] CENTERTOTAL PROTEIN6.16.0 - 8.0 g/dL 06/14/2025 5:56 AM [facility] CENTERALBUMIN3.33.2 - 5.3 g/dL06/14/2025 5:56 AM [facility] CENTERALKALINE LOFMZEXHWIC7103 - 130 U/L1 5:56 AM [facility]ENTERAST69(H)<=41 U/L1 5:56 AM [facility]ENTERALT148(H)<=40 U/L1 5:56 AM [facility] CENTERBILIRUBIN,TOTAL0.40.3 - 1.2 mg/dL06/14/2025 5:56 AM [facility] CENTEREGFR Non-Race Dependent>90>=60 ml/min/1.73sq.m1 5:56 AM [facility] CENTERComment: eGFR not reported due to non-numeric value for Creatinine. Reported eGFR is based on the CKD-EPI 2020 equation that does not use a race coefficient. Specimen (Source)Anatomical Location / LateralityCollection Method / Volume Collection TimeReceived TimeBloodVenous blood / UnknownVenipuncture / Unknown 06/14/2025 4:48 AM EDT1 5:26 AM EDT Narrative Authorizing ProviderResult TypeResult StatusTaeler Roberth INTERNAL MEDICINE HOSPITALIST-CNPLAB BLOOD ORDERABLESFinal ResultPerforming OrganizationAddressCity/State/ZIP CodePhone Number [facility] [address] [place] [address], * CT cervical spine without contrast (06/13/2025 [...] images are obtained. All CT scans at [facility] use dose modulation, iterative reconstruction, and/or weightbased [...] 12:22 PM Authorizing ProviderResult TypeResult StatusJessjessica Mary INTERNAL MEDICINE HOSPITALIST-CNPIMG CT ORDERABLESFinal Result * CT brain without [...] on 06/13/2025 12:17 PM Authorizing ProviderResult TypeResult StatusJegriselda Mary INTERNAL MEDICINE HOSPITALIST-CNPIMG CT ORDERABLESFinal Result from Last 3 Months Insurance * Guarantor: [facility] TypeRelation to PatientDate of PhoneBilling AddressCorporateOther [address] [place] [address] * Guarantor: [facility], Client/SubmitterAccount TypeRelation to PatientDate of BirthPhoneBilling AddressThird Constitution Party LiabilityOther [address] [place] [address] [place] [address] Advance Directives * Full Code (Latest Code Status on File) Date ActivatedDate FtavxepcqlvBrfuvtgq32/26/2025 4:13 06/14/2025 4:57 PM Care Teams Team MemberRelationshipSpecialtyStart DateEnd Date Rell Guy MD [address] [facility] [place] [address] PCP - GeneralFamily Medicine09/07/24
--- OUTSIDE RECORDS SUMMARY | 2025-06-15 16:28 | XMS_ITS | Patient Health Record ---
Author Organization The [facility] in [place] Address [address] [place] [address] Care Team Providers Care Radiological Engineer Name Role Phone Ezekiel Bosch Primary Care Provider Allergies Allergen (clinical drug ingredient) Drug/Non Drug Allergy documented on EMR Reaction Allergy Type Onset Date Status PenicillinSISTER HAS ALLERGYDrug AllergyActive Results Component Value Reference Range Notes THYROID ANTIBODIES Reviewed date:09/13/2024 11:57:14 AM Interpretation: Performing Lab: Notes/Report: [facility] , Thyroid Peroxidase (TPO) Ab 12 0-34 IU/mL Thyroglobulin Antibody<1.00.0-0.9 IU/mL antibodies may not be pathogenic nor diagnostic, especially at very low levels. The assay riprap placing supervisor has found that disease or autoimmunity will have positive TgAb levels up Methodology It should be noted that the presence of thyroglobulin [address] [place], [place] [id number] Thyroglobulin Antibody measured by [employer] Operator: Chad Knowles PhD, Phone: [phone] four percent of individuals without evidence of thyroid Performed at: - [facility] [place] to 4 IU/mL. Performing Lab:see note - [facility] LBUS abdomen limited Reviewed date:09/03/2024 07:44:31 PM Interpretation: Performing Lab: Notes/Report: Source Facility: [facility]-[address] [place] [address] [place] [address] Ultrasound Report Signed with Thi Patient: LEONARDO RAND MR#: [id number] : 1985 Acct:[id number] Age/Sex: 39 / M ADM Date: 09/03/24 Loc: US Attending Dr: Randy Bosch M.D. Ordering Physician: Randy Bosch M.D. Date of Service: 09/03/24 Procedure(s): US abdomen limited Accession Number(s): [id number] cc: Randy Bosch M.D. ADDENDUM The [address] [address] Patient Name: LEONARDO RAND MRN: [id number] date: 1985 Sex: M Assigned Patient Location: US Current Patient Location: US Accession/Order Number: [id number] Exam Date: 09/03/2024 11:10 Report Date: 09/03/2024 15:56 At the request of: RANDY BOSCH Procedure: US abdomen limited Begin Addendum #1 The findings should read: This is just below the hypodermis Original Report EXAMINATION: US abdomen limited HISTORY: Soft Tissue Disorder COMPARISON: No relevant comparison available. FINDINGS: Grayscale and color ultrasound Identified in the region of the patient's palpable abnormality is a 4. 9 x 0. 7 x 1. 1 cm area of hypoechogenicity with vascular flow this is just below the hypothalamus within the subcutaneous fat superficial to the muscle Addendum Dictated By: Maximus Henry M.D. Addendum Signed By: 09/03/24 1 558 Addendum Cosigned By: DD/ TD/TT: / ADDENDUM US/US abdomen limited IMPRESSION: Hypoechoic vascular mass corresponding to the patient's palpable abnormality. The differential diagnosis would include infection versus indeterminate soft tissue mass Electronically authenticated by: MAXIMUS HENRY Date: 09/03/2024 15:56 Addendum Dictated By: Maximus Henry M.D. Addendum Signed By: 09/03/24 1 558 Addendum Cosigned By: DD/ TD/TT: / The [address] [address] Patient Name: LEONARDO RAND MRN: [id number] date: 1985 Sex: M Assigned Patient Location: US Current Patient Location: US Accession/Order Number: [id number] Exam Date: 09/03/2024 11:10 Report Date: 09/03/2024 12:47 At the request of: RANDY BOSCH Procedure: US abdomen limited EXAMINATION: US abdomen limited HISTORY: Soft Tissue Disorder COMPARISON: No relevant comparison available. FINDINGS: Grayscale and color ultrasound Identified in the region of the patient's palpable abnormality is a 4.9 x 0.7 x 1.1 cm area of hypoechogenicity with vascular flow this is just below the hypothalamus within the subcutaneous fat superficial to the muscle US/US abdomen limited IMPRESSION: Hypoechoic vascular mass corresponding to the patient's palpable abnormality. The differential diagnosis would include infection versus indeterminate soft tissue mass Electronically authenticated by: MAXIMUS HENRY Date: 09/03/2024 12:47 Dictated By: Maximus Henry M.D. Signed By: 09/03/24 1250 DD/ 1247 TD/TT: Assembler:CBC AUTO DIFF Reviewed date:09/09/2024 03:02:24 PM Interpretation: Performing Lab: Notes/Report: The [facility] ,White Blood Count5.74.0-11.0 10 3/uLRed Blood Count5.164.70-6.10 10 6/uL Urcrzbnuuf32.114.0-18.0 g/fLGzspttbyao29.342.0-54.0 %Mean Corpuscular Lleacg87.7 80.0-94.0 fLMean Corpuscular Zxkxibikrp25.225.9-34.0 pgMean Corpuscular HGB Conc 34.029.9-35.2 g/dLRed Cell Distribution Width12.211.0-15.0 %Platelet Eaepc942 150-450 10 3/uLMean Platelet Volume9.59.5-13.5 fLNeutrophils Percent Auto41.4 43.0-75.0 %Lymphocytes Percent Auto43.420.5-60.0 %Monocytes Percent Auto11.41.7- 12.0 %Eosinophils Percent Auto3.30.9-7.0 %Basophils Percent Auto0.50.2-2.0 % Immature Granulocytes Pct Auto0.00.0-0.5 %Neutrophils Absolute Auto2.41.4-6.5 10 3/uLLymphocytes Absolute Auto2.51.2-3.8 10 3/uLMonocytes Absolute Auto0.70.3-0.8 10 3/uLEosinophils Absolute Auto0.20.0-0.7 10 3/uLBasophils Absolute Auto0.00.0- 0.1 10 3/uLImmature Granulocytes Abs Auto0.000.00-0.03 10 3/uLPerforming Lab:see note - [facility] LBFREE T3 Reviewed date:09/09/2024 03:02:24 PM Interpretation: Performing Lab: Notes/Report: [facility] ,Free T32.312.18-3.98 pg/mLPerforming Lab:see [facility] LB GLYCOHEMOGLOBIN A1C Reviewed date:09/09/2024 03:02:24 PM Interpretation: Performing Lab: Notes/Report: [facility] ,Glycohemoglobin A1C5.04.5-6.2 % ACTION SUGGESTED > 7.0 ADA RECOMMENDED LIMIT 4.0 - 6.0 ADA THERAPEUTIC TARGET < 7.0 Estimated Average Imzjmwa85Yaevvohdcc Lab:see [facility] LB LIPID PROFILE Reviewed date:09/09/2024 03:02:24 PM Interpretation: Performing Lab: Notes/Report: The [facility] ,Antqvfyoosake624<=150 mg/dJLtyqjnswjph330<=200 mg/dLHDL Kjcyrepvrjz5469-50 mg/dL <40 mg/dl - HIGH CARDIOVASCULAR RISK > or =60 mg/dl - LOW CARDIOVASCULAR RISK LDL Cholesterol Urlunuaqdd83.0 130-159 mg/dl BORDERLINE HIGH 100-129 mg/dl NEAR OR ABOVE OPTIMAL >190 mg/dl VERY HIGH <100 mg/dl OPTIMAL 160-189 mg/dl HIGH VLDL CWQKCGFOIGB60.6Chol HDL Ratio2.8 4.4 - 7.1 AVERAGE RISK 3.3 - 4.4 LOW RISK >11.0 HIGH RISK 7.1 - 11.0 MODERATE RISK Performing Lab:see [facility] LBPROF 14(COMP METB) Reviewed date:09/09/2024 03:02:24 PM Interpretation: Performing Lab: Notes/Report: [facility] ,Vrfbgw868944-780 mmol/LPotassium3.73.5-5.1 mmol/ILdtiwjbf54275-031 mmol/LCarbon Hytwxvn49.121.0-32.0 mmol/LAnion Gap12.7Sjgrnfm71430-064 mg/dLBlood Urea Gcfgpmzc62.07.0-18.0 mg/dLCreatinine1.340.70-1.30 mg/dLEstimated GFR ( Susana>60>=60 mL/min/1.73m 2Estimated GFR (Non- Ame59>=60 mL/min/1.73m 2 BUN Creatinine Ratio11.2Ofkosox1.98.5-10.1 mg/dLBilirubin Total0.90.2-1.0 mg/dL Aspartate Amino Qacpzwomxow37789-88 U/LAlanine Vvqqlwombhmkeisr58626-18 U/L Alkaline Alglyrtbxeb0821-146 U/LTotal Protein7.56.4-8.2 g/dLAlbumin Level3.93.4- 5.0 g/dLGlobulin3.6Albumin Globulin Ratio1.1Performing Lab:see noteML - [facility] LBPSA SCREENING Reviewed date:09/09/2024 03:02:24 PM Interpretation: Performing Lab: Notes/Report: [facility] ,Prostate Specific Antigen Scrn0.31<=4.00 ng/mLPerforming Lab:see noteML - [facility] LBT4 Reviewed date:09/09/2024 03:02:24 PM Interpretation: Performing Lab: Notes/Report: [facility] ,T4 Czsvrkbgx28.604.50-12.10 ug/dLPerforming Lab:see noteML - [facility] LBTSH Reviewed date:09/09/2024 03:02:24 PM Interpretation: Performing Lab: Notes/Report: [facility] ,Thyroid Stimulating Hormone0.9970.358-3.740 uIU/mLPerforming Lab:see noteML - [facility] LB Reason For Referral Diagnosis 1 Abscess (L02.91) Referral Organization [facility] Referring Provider First Name Ezekiel Referring Provider Last Name Malena Referring Provider Speciality Family Med guy Referred Provider Krishna Nur Referred Provider Specialty General Surg arash Referral Priority Routine Medications Medication SIG (Take, Route, Frequency, Duration) Notes Start Date End Date Status Topamax 100 MG 1 tablet Orally Once a day; Dura tion: 30 days 10/23/2024UnknownTadalafil 20 MGTAKE 1 TABLET BY MOUTH EVERY 3 DAYS; Duration: 30UnknownCefdinir 300 MG2 capsule Orally once a day; Duration: 10 days06/01/2025 ActiveDoxycycline Monohydrate 100 MG1 tablet Orally bid; Duration: 10 days 5ActiveVentolin HFA 108 (90 Base) MCG/ACT2 puff as needed Inhalation every 4 hrs11/06/2024UnknownSuboxonePRNUnknownSildenafil Citrate 100 MG1 tablet as needed Orally Once a day; Duration: 30 day(s)10/26/2024UnknownFLUoxetine HCl 20 MGTAKE 1 CAPSULE BY MOUTH DAILY; Duration: 30ActiveHyoscyamine Sulfate 0.125 MG1-2 tabs SL SL every 4 hrs PRN abd pain10/26/2024UnknownWellbutrin XL 300 MG1 tablet in the morning Orally Once a day; Duration: 30 days5Active Ciprofloxacin HCl 500 MG1 tablet Orally every 12 hrs; Duration: 10 days 10/26/2024UnknownDoxycycline Monohydrate 100 MG1 capsule Orally bid; Duration: 10 days11/09/2024Unknown Social History Tobacco Use: Social History Observation Description Date Details (start date - stop date) Current Smoker NA - NA Tobacco Use/Smoking Question Answer Notes Patient is a current smoker AUDIT-C (Standard) Question Answer Notes Did you have a drink containing alcohol in the p ast year? No Nthgdh4TikctrjpfubecuXumjwcfnVfielqg Notes: Marijuana Use Marijuana Use Marijuana Use Problems Problem Type SNOMED Code ICD Code Onset Dates Problem Status W/U Status Risk Notes Problem Hypotension (11068320) Hypotension (I95.9 ) ActiveconfirmedProblemAnxiety (13506906)Anxiety (F41.9)ActiveconfirmedProblem Hepatitis C (32224185)Hepatitis C (B19.20)ActiveconfirmedProblemPosttraumatic stress disorder (31989671)PTSD (post-traumatic stress disorder) (F43.10)Active confirmedProblemInsomnia (236384421)Insomnia (G47.00)ActiveconfirmedProblem Chronic diarrhea (726960918)Chronic diarrhea (K52.9)ActiveconfirmedProblem Abscess (93623271)Abscess (L02.91)ActiveconfirmedProblemMemory loss (69894436) Memory loss (R41.3)ActiveconfirmedProblemOpioid abuse (3313798)Narcotic abuse (F11.10)ActiveconfirmedProblemBenign prostatic hyperplasia (726994431)Prostate hypertrophy (N40.0)ActiveconfirmedProblemLumbar radiculopathy (394697582)Chronic lumbar radiculopathy (M54.16)ActiveconfirmedProblemBipolar affective disorder (16238367)Affective bipolar disorder (F31.9)ActiveconfirmedProblemAphthous ulcer of mouth (411362932)Aphthous ulcer of tongue (K12.0)ActiveconfirmedProblem Stimulant dependence (665311211)Stimulant dependence (F15.20)Activeconfirmed Vital Signs Temperature 98.1 degrees Fahrenheit 09/03/2024 Blood pressure otvzkhxyo21 mm Hg11/06/20244689Spturi70 in11/06/2024lood pressure sikldyoe172 mm Hg11/06/20249274Zakohf746 lbs11/06/2024BMI21.14 kg/m211/06/2024 Encounters Encounter Location Date Provider Diagnosis [address] [address] 09/03/2024 Ezekiel Ruthy Abscess L02.91 ; Insomnia G47.00 and Memory loss R41.[address] [address] 10/26/2024 Ezekiel Ruthy Hepatitis C B19.20 a nd Chronic diarrhea K52.[address] [address] 11/06/2024 Ezekiel Ruthy Acute non-recurrent sinusitis, unspecified location J01.90 and Nasal congestion R09.[address] [place] [address] 06/01/2025 Ezekiel Hoy [facility] [place] [address] 06/14/2025[facility] [place] [address]/02/2025[facility] [place] [address]/02/2025[facility] [place] [address]/07/2025Doug HoyEar infection H66.90 [facility] [place] [address] 11/09/2024[facility] [facility] [place] [address]/[facility] [place] [address]/[facility] [place] [address]/Doug HoySoft tissue mass M79.9BV[facility] [place] [address]/ Ezekiel HoySoft tissue mass M79.9[facility] [place] [address]/[facility] [place] [address]/[facility] [place] [address]/Doug HoyAbnormal thyroid blood test R79.89 and Abscess L02.91[facility] [place] [address]/05/2025Doug HoyAbdominal pain R10.9 [place] [address] [facility] [place] [address] 06/19/2024[place] [address] [facility] [place] [address]/[place]St[place] [address] [facility] [place] [address]/[facility] [facility] [place] [address]/[facility] [facility] [place] [place] [address]/[facility] [facility] [place] [address]/10/2024 Ezekiel [place] [address] [facility] [place] [address]/[facility] [facility] [place] [address]/[facility] [facility] [place] [address]/[facility] Ass[facility]ments Encounter Date Diagnosis (ICD Code) Assessment Notes Treatment Notes Treatment Clinical Notes Section Notes 09/03/2024 Insomnia (ICD-10 - G47.00) 5Abscess (ICD-10 - L02.91)09/03/2024Memory loss (ICD-10 - R41.3) 10/26/2024Hepatitis C (ICD-10 - B19.20)10/26/2024hronic diarrhea (ICD-10 - K52.9)5Acute non-recurrent sinusitis, unspecified location (ICD-10 - J01.90)Rest and drink more liquids, especially water. You may use a humidifier or vaporizer to help keep the drainage moist. Heyf-dym-oifnzxk Nasal Saline may help the stuffy and runny nose. Use Ibuprofen and or Tylenol as needed for fever, chills, body aches or pain. Children 5 years old should not be given awuz-diq-ceswsen cough and cold medications such as guaifenesin and dextromethorphan. If you're over age 5, you may try usin-rtv-puuyqje cold medications such as guaifenesin and dextromethorphan, or multi-symptom cold reliever such as Dayquil to help reduce the symptoms. Antibiotics have been pre scribed. You should take these until completed and follow the directions. Antibiotics can sometimescause upset stomach, and in rare cases, serious allergic reactions or serious gastrointestinal problems. If you start having severe abdominal pain, severe vomiting, or bloody diarrhea, you should be r eevaluated by your physician or urgent care immediately. Follow up with your Primary Care Provider or return to clinic if symptoms do not improve within 3-5 days08/31/2024Soft tissue mass (ICD-10 - M79.9)09/03/2024Soft tissue mass (ICD- 10 - M79.9)09/09/2024bnormal thyroid blood test (ICD-10 - R79.89)09/28/2024 Abdominal pain (ICD-10 - R10.9)10/28/2024Ear infection (ICD-10 - H66.90) 09/09/2024bscess (ICD-10 - L02.91)11/06/2024Nasal congestion (ICD-10 - R09.81) Plan Of Treatment Pending Test Test Name Order Date CMP (COMPLETE METABOLIC PANEL) 4 SED RATE (ESR) 10/28/2024 HEMOGLOBIN A1C (GLYCO) 04/29/2024 HEMOGLOBIN A1C (GLYCO) 09/03/2024 LIPID PANEL (CHOL/TRIG/HDL/LDL) 09/03/19 25 CBC WITH DIFF 09/03/2024 CBC WITH DIFF 04/29/2024 CARDIO Echocardiogram 04/03/2024 ACUTE HEPATITIS PANEL 05/05/2024 CMP - Comprehensive Metabolic Panel 10/17 CMP - Comprehensive Metabolic Panel 09/19 PT and PTT 09/28/2024 PSA, TOTAL 09/03/2024 US Abdomen - Limited 09/03/2024 STOOL OCCULT BLOOD 09/03/2024 AMMONIA 09/28/2024 AMYLASE 09/28/2024 CBC AUTO DIFF 10/28/2024 CRP 10/28/2024 LIPASE 09/28/2024 LIVER PROFILE 2024 SED RATE WESTERGREN 04/29/2024 MRI BRAIN WO CON 04/03/2024 US KIDNEYS 11/21/2022 XR CHEST 2 V 04/29/2024 THYROID PANEL (T4/TSH/FREE T3) 4 THYROID PANEL (T4/TSH/FREE T3) 5 THYROID PANEL (T4/TSH/FREE T3) 4 Holter Monitor - 3 days up to 14 days NM thyroid w uptake 09/09/2024 US abdomen complete 08/31/2024 US abdomen complete 09/28/2024 US Gallbladder/Liver/Pancreas 05/05/2024 CMP (COMP MET SORIANO) w/eGFR CKD-EPI 2024 Next Appt Details Provider Name:Ezekiel Bosch, 01:30:00 PM, [address] [place], [address], Provider Name:Ezekiel Bosch, 10:15:00 AM, [address] [place], [address], Insurance Providers Payer Name Payer Address Payer Phone Subscriber Number Group Number Insured Name Patient Relationship to Insured Coverage Start Date Coverage End Date [employer] [place] [employer] [address] [place] [phone] [id number] Anastacio Randelf - patient is the insured Medical (General) History Medical History History ICD Code Chronic lumbar radiculopathy M54.16 Stimulant dependence F15.20 PTSD (post-traumatic stress disorder) F4 3.10 Chronic diarrhea K52.9 Insomnia G47.00 Affective bipolar disorder F31.9 Hepatitis C B19.20 Narcotic abuse F11.10 Anxiety F41.9 Eczema L30.9 Surgical History Surgery Date(Month/Year) Knee Surgery- Right
--- OUTSIDE RECORDS SUMMARY | 2025-06-15 16:28 | XMS_ITS | Encounter Summary ---
Author Organization [facility] tem Address [facility] [place]-[id number] [address] [place] [address] Care Team Providers Care Highway Safety Engineer Name Role Phone Rell Guy MD Primary Care Provider [phone] Encounter Details DateTypeDepartmentCare Team (Latest Contact Info)Iaqjbwpddtg63/26/2025Travel Social History Tobacco UseTypesPacks/DayYears UsedDateSmoking Tobacco: Some Days Vaping/E-cigarettesSmokeless Tobacco: CurrentAlcohol UseStandard Drinks/Week CommentsNot Currently0 (1 standard drink = 0.6 oz pure alcohol)ChildcareAnswer Date SbcmzbnpRgsuwdjjnUiijhhy62/12/2019EmploymentAnswerDate RecordedEmployment Qwnbhqw0801/28/2019Hunger ScreeningAnswerDate RecordedWithin the past 12 months we worried whether our food would run out before we got money to buy more.Never True06/14/2025Within the past 12 months the food we bought just didn't last and we didn't have money to get more.Never True06/14/2025Purpose - LifeAnswerDate RecordedPurpose and direction in uwxeWhlkpmg43/11/2021ex and Gender Information ValueDate RecordedSex Assigned at RxtwxBavz16/26/2022 2:51 PM EDTLegal SexMale 03/24/2015 11:35 AM EDTGender JdzpedtuMuuj48/26/2022 2:51 PM EDTSexual BgjrlsttvroVxdzdwaq72/26/2022 2:51 PM EDTdocumented as of this encounter Functional Status documented as of this encounter Plan of Treatment Not on file documented as of this encounter Visit Diagnoses Not on filedocumented in this encounter Care Teams Team MemberRelationshipSpecialtyStart DateEnd Date Rell Guy MD [address] [place] [address] PCP - GeneralFamily Medicine09/07/24documented as of this encounter
--- OUTSIDE RECORDS SUMMARY | 2025-06-15 16:29 | XMS_ITS | Patient Health Record ---
Author Organization [employer] [facility] [email or web address] es Address [address] [place] [address] Care Team Providers Care Utility Technician Name Role Phone Dr. Delano Still Primary Care Provider Reason For Referral No Information Medications Medication SIG (Take, Route, Frequency, Duration) Notes Start Date End Date Status Ibuprofen 800 MG Tablet 1 tablet with fo od or milk as needed Orally Three times a day 1Active Plan Of Treatment No Information Insurance Providers Payer Name Payer Address Payer Phone Subscriber Number Group Number Insured Name Patient Relationship to Insured Coverage Start Date Coverage End Date zDENTAL DQ [facility] [place] [address] [place] [id number] [place]PHCP Leonardo Roach Self - patient is the insured zDental Medicaid ABD after [facility] CHP-termed [address] [place] [id number], ChanceSelf - patient is the [id number] 2021
--- OUTSIDE RECORDS SUMMARY | 2025-06-15 16:30 | XMS_ITS | CCD ---
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 [facility] ([id number]) [address] [place] [address] 28169WFZU (RBC) [Mass/Vol]34.3 g/gOAkpoye16-48XkgPkjeqkSouth Texas Health System EdinburgComment on above:Performed By: #### CBCA, 39261-5, CMP, 3040-3 #### [facility] ([id number]) [address] [place] [address] 96152CWB (RBC) [Entitic vol]88 vSOshxpr48-025WuxTeglxg [facility] HospitalComment on above:Performed By: #### CBCA, 39484-6, CMP, 3040-3 #### [facility] ([id number]) [address] [place] [address] 83208TIODXOIWJ ABSOLUTE COUNT (10*3/UL) BY AUTOMATED COUNT0.5 10*3/uLNormal0.0-0.9ProSouth Texas Health System EdinburgComment on above:Performed By: #### CBCChirag, 11298-1, CMP, 3040-3 #### [facility] ([id number]) [address] [place] [address] 88970UBQPKVBPM RELATIVE PERCENT BY AUTOMATED COUNT10.8 %Normal [facility] CenterComment on above:Performed By: #### CBCChirag, 21877-8, CMP, 3040-3 #### [facility] ([id number]) [address] [place] [address] 35381HGZAHQGRJXX ABSOLUTE COUNT BY AUTOMATED COUNT2.4 10*3/uLNormal 1.5-6.6[facility] CenterComharbor oaks hospital on above:Performed By: #### CBCChirag, 79918-5, CMP, 3040-3 #### [facility] ([id number]) [address] [place] [address] 69342ECFEGARBVRN RELATIVE PERCENT BY AUTOMATED COUNT50.9 %Normal [facility] CenterComment on above:Performed By: #### CBCA, 30943-5, CMP, 3040-3 #### [facility] ([id number]) [address] [place] [address] 07648Ameuqfbw mean volume (Bld) [Entitic vol]7.7 fLNormal7-12 [facility] CenterComment on above:Performed By: #### CBCA, 66818-8, CMP, 3040-3 #### [facility] ([id number]) [address] [place] [address] 75702Wyykqbnzj (Bld) [#/Vol]267 10*3/jOZfizhq163-429YwcFgkbfm [facility] HospitalComment on above:Performed By: #### LILA, 92129-6, CMP, 3040-3 #### [facility] ([id number]) [address] [place] [address] 32871IHI COUNT4.36 X10E12/LNormal4.1-5.7[facility] Comment on above:Performed By: #### LILA, 63656-2, CMP, 3040-3 #### [facility] ([id number]) [address] [place] [address] 15892AHM (Bld) [#/Vol]4.7 10*3/uLNormal4-11ProSouth Texas Health System EdinburgComment on above:Performed By: #### LILA, 44783-1, CMP, 3040-3 #### [facility] ([id number]) [address] [place] [address] 70405NSIZABYWLPLIW METABOLIC PANELon 80-60-1260Otjqljn [Mass/Vol]3.5 g/dLNormal3.2-5.3ProMedBarstow Community HospitalComment on above:Performed By: #### LILA, 62556-5, CMP, 3040-3 #### [facility] ([id number]) [address] [place] [address] 66860VIF [Catalytic activity/Vol]50 U/QJgnuct08-702ObiHaulofSouth Texas Health System EdinburgComment on above:Performed By: #### LILA, 92332-2, CMP, 3040-3 #### [facility] ([id number]) [address] [place] [address] 03167GIL [Catalytic activity/Vol]169 U/LHigh<=40ProSouth Texas Health System EdinburgComment on above:Performed By: #### LILA, 52728-6, CMP, 3040-3 #### [facility] ([id number]) [address] [place] [address], [place] [address]Eazzh gap [Moles/Vol]9 mmol/LNormal5-15ProSouth Texas Health System EdinburgComment on above:Performed By: #### LILA, 74911-8, CMP, 3040-3 #### [facility] ([id number]) [address] [place] [address] 28024KSP [Catalytic activity/Vol]91 U/LHigh<=41ProSouth [facility] Health System EdinburgComment on above:Performed By: #### LIAL, 45958-4, CMP, 3040-3 #### [facility] ([id number]) [address] [address], [place] [address]Ldkxobsyy [Mass/Vol]1.2 mg/dLNormal0.3-1.2PVeterans Health AdministrationComment on above:Performed By: #### LILA, 54839-9, CMP, 3040-3 #### [facility] ([id number]) [address] [place] [address] 07400Sfyntbk [Mass/Vol]8.1 mg/dLLow8.5-10.5PVeterans Health AdministrationComment on above:Performed By: #### LILA, 59093-1, CMP, 3040-3 #### [facility] ([id number]) [address] [address], [place] [address]Adlubtsi [Moles/Vol]99 mmol/FZgcyph62-190RahOothswSouth Texas Health System EdinburgComment on above:Performed By: #### LILA, 73966-0, CMP, 3040-3 #### [facility] ([id number]) [address] [address], [place] 84[address]FB1 [Moles/Vol]26 mmol/BPrzkle04-28WirAcvskzVeterans Health Administration Comment on above:Performed By: #### LILA, 30544-3, YAQUELIN, 3040-3 #### [facility] ([id number]) [address] [place] [address] 83042Ltfodcndmo [Mass/Vol]1.22 mg/dLHigh0.70-1.20[facility] Medical CenterComment on above:Result Comment: METHOD TRACEABLE TO IDMS STANDARD Performed By: #### LILA, 01896-7, YAQUELIN, 3040-3 #### [facility] ([id number]) [address] [place] [address] 69650YUR/1.73 sq M.predicted among non-blacks MDRD (S/P/Bld) [Vol rate/Area]76 mL/min/{1.73_m2}Normal>=60[facility] Medical CenterComment on above:Result Comment: eGFR not reported due to non-numeric value for Creatinine. Reported eGFR is based on the CKD-EPI 1 equation that does not use a race coefficient.Performed By: #### LILA, 32953-4, YAQUELIN, 3040-3 #### [facility] ([id number]) [address] [place] [address] 65900Rtjnuhx [Mass/Vol]151 mg/hIJxpu71-21BfuPlozljAdams County Regional Medical Center Comment on above:Performed By: #### LILA, 22072-1, YAQUELIN, 3040-3 #### [facility] ([id number]) [address] [place] [address] 11265Ohbrhymcl [Moles/Vol]3.8 mmol/LNormal3.5-5.0[facility] CenterComment on above:Performed By: #### LILA, 25123-1, YAQUELIN, 3040-3 #### [facility] ([id number]) [address] [place] [address] 05642Povebxb [Mass/Vol]6.3 g/dLNormal6.0-8.0ProSouth Texas Health System EdinburgComment on above:Performed By: #### LILA, 10656-7, CMP, 3040-3 #### [facility] ([id number]) [address] [address], [place] [address]Msyjnz [Moles/Vol]134 mmol/CGxthdy364-513AwwObbmhr [facility] HospitalComment on above:Performed By: #### LILA, 68094-7, CMP, 3040-3 #### [facility] ([id number]) [address] [address], [place] [address]Kdzn nitrogen [Mass/Vol]13 mg/dLNormal5-23ProSouth [facility] Health System EdinburgComment on above:Performed By: #### LILA, 95597-6, CMP, 3040-3 #### [facility] ([id number]) [address] [address], [place] [address]Tzdzxqx [Mass/Vol]3.8 g/dLNormal3.2-5.3ProMedBarstow Community HospitalComment on above:Performed By: #### LILA, 69189-7, CMP, 3040-3 #### [facility] ([id number]) [address] [address], [place] [address]YKJ [Catalytic activity/Vol]53 U/JBktoso02-705QepHaycpcSouth Texas Health System EdinburgComment on above:Performed By: #### LILA, 70716-9, CMP, 3040-3 #### [facility] ([id number]) [address] [address], [place] 286[address]TOJ [Catalytic activity/Vol]183 U/LHigh<=40ProSouth [facility] Health System EdinburgComment on above:Performed By: #### LILA, 95056-6, CMP, 3040-3 #### [facility] ([id number]) [address] [address], [place] [address]Nwmxu gap [Moles/Vol]11 mmol/LNormal5-15ProSouth [facility] Health System EdinburgComment on above:Performed By: #### LILA, 30173-5, CMP, 3040-3 #### [facility] ([id number]) [address] [address], [place] [address]ROF [Catalytic activity/Vol]100 U/LHigh<=41ProSouth [facility] Health System EdinburgComment on above:Performed By: #### LILA, 03055-4, CMP, 3040-3 #### [facility] ([id number]) [address] [address], [place] [address]Fccxffyov [Mass/Vol]1.3 mg/dLHigh0.3-1.2PVeterans Health AdministrationComment on above:Performed By: #### LILA, 47825-7, CMP, 3040-3 #### [facility] ([id number]) [address] [address], [place] [address]Qzkdgff [Mass/Vol]8.4 mg/dLLow8.5-10.5PVeterans Health AdministrationComment on above:Performed By: #### LILA, 53626-6, CMP, 3040-3 #### [facility] ([id number]) [address] [address], [place] [address]Qbigmnuj [Moles/Vol]95 mmol/QQnz25-629XaiUlirsgSouth Texas Health System EdinburgComment on above:Performed By: #### LILA, 45129-1, CMP, 3040-3 #### [facility] ([id number]) [address] [address], [place] [address]AT3 [Moles/Vol]25 mmol/EHydonk97-43DjnUxtpoiVeterans Health Administration Comment on above:Performed By: #### LILA, 37045-8, CMP, 3040-3 #### [facility] ([id number]) [address] [address], [place] [address]Vmktnjnvhl [Mass/Vol]1.42 mg/dLHigh0.70-1.20ProSouth Texas Health System EdinburgComment on above:Result Comment: METHOD TRACEABLE TO IDMS STANDARD Performed By: #### LILA, 11527-5, YAQUELIN, 3040-3 #### [facility] ([id number]) [address] [place] [address] 93119TFX/1.73 sq M.predicted among non-blacks MDRD (S/P/Bld) [Vol rate/Area]64 mL/min/{1.73_m2}Normal>=60ProSouth Texas Health System EdinburgComment on above:Result Comment: eGFR not reported due to non-numeric value for Creatinine. Reported eGFR is based on the CKD-EPI 2020 equation that does not use a race coefficient.Performed By: #### LILA, 05577-6, YAQUELIN, 3040-3 #### [facility] ([id number]) [address] [place] [address] 28566Rtauucy [Mass/Vol]126 mg/hIUnkm54-71InbJdhmybSouth Texas Health System Edinburg Comment on above:Performed By: #### LILA 40668-9, YAQUELIN, 3040-3 #### [facility] ([id number]) [address] [place] [address] 68169Bczbxnkwe [Moles/Vol]3.5 mmol/LNormal3.5-5.0ProSouth Texas Health System EdinburgComment on above:Performed By: #### LILA, 13849-4, YAQUELIN, 3040-3 #### [facility] ([id number]) [address] [place] [address] 68585Ddmultz [Mass/Vol]6.7 g/dLNormal6.0-8.0ProSouth Texas Health System EdinburgComment on above:Performed By: #### LILA, 78186-2, YAQUELIN, 3040-3 #### [facility] ([id number]) [address] [place] [address] 60890Gzmkwf [Moles/Vol]131 mmol/NGdd503-551IjzXkagpnSouth Texas Health System EdinburgComment on above:Performed By: #### CBCA, 95544-8, [facility], 3040-3 #### [facility] ([id number]) [address] [place] [address] 99446Pang nitrogen [Mass/Vol]14 mg/dLNormal5-23[facility] CenterComment on above:Performed By: #### CBCA, 23653-7, [facility], 3040-3 #### [facility] ([id number]) [address] [place] [address] 90956HS BRAIN WO CONTon 04-79-9402MX BRAIN WO CONTCT BRAIN WO CONT Examination: Noncontrast brain CT Date of Exam:06/13/2025 [...] by Thierno Fam MD on 06/13/2025 12:17 PMNormalAdams County Regional Medical CenterCT CERVICAL SPINE WO CONTon 81-97-8283DL CERVICAL SPINE WO CONTCT CERVICAL SPINE WO CONT History: Headache neck pain Technique: Multidetector spiral [...] by Louie Mahajan MD on 06/13/2025 12:22 PMNormalAdams County Regional Medical CenterMAGNESIUMon 98-56-5938Ercaztyns [Mass/Vol]2.1 mg/dLNormal1.8-2.6 [facility] Va HospitalComment on above:Performed By: #### LILA, 05148-4, [facility], 3040-3 #### [facility] ([id number]) [address] [place] [address] 36690JAKAVWMVP/GC BY PCR SÁNCHEZ SWABon 98-76-7200OBIIZFUFJ/GC BY PCR SÁNCHEZ SWABCHLAMYDIA DNA(PCR) Negative Chlamydia trachomatis not detected by nucleic acid amplification. This does not exclude the possibility of infection because results are dependent on adequate specimen collection. GONORRHOEAE DNA(PCR) Negative Neisseria gonorrhoeae not detected by nucleic acid amplification. This does not exclude the possibility of infection because results are dependent on adequate specimen collection.NormalAdams County Regional Medical CenterComment on above:Performed By: #### LILA, 06587-7, [facility], 3040-3 #### [facility] ([id number]) [address] [place] [address] 51830WWJDDMOXF B CORE ANTIBODY, TOTALon 42-52-6366DUAI HBC Khg-TqxooqxdFwufbiJnj-LqyljfwmYvrNpttxj [facility] HospitalComment on above: Performed By: #### AHBC #### [facility] ([facility]) [address] [place] [address] VIRHEPATITIS B SURFACE ANTIBODY QUANTITATIONon 52-78-6034XTYW HBS QUANT.<^3.0NormalAdams County Regional Medical CenterComment on above:Order Comment: Vaccinated: >=10 mIU/mL, Positive (Immune) Unvaccinated: <10 mIU/mL, Negative (Not Immune)Performed By: #### AHBSQ #### [facility] ([facility]) [address] [place] [address] VIRHEPATITIS B SURFACE ANTIGENon 72-94-7945PMRFQNBZJ B SURF AG Pra-PkyolumkQustfqCzr-XctgyjfqGqeVswvqx [facility] HospitalComment on above: Performed By: #### HBAG #### [facility] ([facility]) [address] [place] [address] VIRHEPATITIS C VIRUS QUANTITATIVE BY NAATon 69-11-2656UYE INTERPRETATIONDetectedAbnormalNot DetectedProSouth Texas Health System EdinburgComment on above:Performed By: #### LILA, 64801-9, CMP, 3040-3 #### [facility] ([id number]) [address] [place] [address] 66117MXT LOG VALUE7.03 Log IU/mLHigh0 copies Log IU/mLAdams County Regional Medical CenterComharbor oaks hospital on above:Performed By: #### LILA, 63213-9, CMP, 3040-3 #### [facility] ([id number]) [address] [place] [address] 80290UCS VIRAL OKBS54608120.00 IU/mLHigh0 copies IU/mLAdams County Regional Medical CenterComharbor oaks hospital on above:Performed By: #### LILA, 54569-9, CMP, 3040-3 #### [facility] ([id number]) [address] [place] [address] 63729LIKSDKAGY C(HCV) ANTIBODY W/REFLEX TO PCRon 43-91-8358NYET HCV W/PCR REFLXReactiveAbnormalNon-ReactiveAdams County Regional Medical CenterComharbor oaks hospital on above:Result Comment: Supplemental testing for HCV RNA by PCR has been ordered per CDC recommendations. Bnlofz-oz-wmcyyx ratio is >=1.00.Performed By: #### LILA, 13421-1, CMP, 3040-3 #### [facility] ([id number]) [address] [place], [place] [address]EGW 1 AND 2 AB/AG SCREEN (P24 AG)on 37-41-6805KGJ 1 AND 2 AB/AG KUYDDRMyg-GmbxyeyxOvphuhYrz-SrmnczxuXwgMzovzv [facility] HospitalComment on above: Order Comment: This information has been disclosed to you from confidential records protected from disclosure by state law. You shall make no further disclosure of this information without the specific, written and informed release of the individual to whom it pertains, or as otherwise permitted bystate law. A general authorization for the release of medical or other information is not sufficient for the purpose of the release of HIV test results or diagnoses. Performed By: #### HIV4 #### [facility] ([facility]) [address] [place] [address] VIRAMMONIAon 06-32-5157Ubufkna (P) [Moles/Vol]44 umol/LHigh 11-35ProSouth Texas Health System EdinburgComment on above:Performed By: #### CBCA, 35411- 6, CMP, 3040-3 #### [facility] ([id number]) [address] [place] [address] 19263QGV AND AUTO DIFFon 66-95-9328BXWHKXQG BASOPHIL0.0 X10E9/L Normal0.0-0.2ProMedBarstow Community HospitalComment on above:Performed By: #### CBCChirag, 64500-3, CMP, 3040-3 #### [facility] ([id number]) [address] [place] [address] 92023RBVHOZXU NEUTROPHIL2.1 X10E9/LNormal1.5-6.6Ad[facility] Medical CenterComment on above:Performed By: #### CBCA, 26623-7, CMP, 3040-3 #### [facility] ([id number]) [address] [place] [address] 11863Rgywaquqx/100 WBC (Bld)1.0 %NormalProSouth [facility] Health System Edinburg Comment on above:Performed By: #### CBCA, 21881-6, CMP, 3040-3 #### [facility] ([id number]) [address] [place] [address] 91205Ozuttlovtwp (Bld) [#/Vol]0.2 10*3/uLNormal0.0-0.4ProSouth Texas Health System EdinburgComment on above:Performed By: #### CBCChirag, 79051-4, CMP, 3040-3 #### [facility] ([id number]) [address] [place] [address] 76961Xrfbjptdlav/100 WBC (Bld)3.6 %NormalAdams County Regional Medical Center Comment on above:Performed By: #### CBCChirag, 40032-1, CMP, 0-3 #### [facility] ([id number]) [address] [place] [address] 03146Xkirdfllzda distribution width (RBC) [Ratio]14.2 %Normal 11.5-15.0ProSouth Texas Health System EdinburgComment on above:Performed By: #### CBCChirag, 09290-6, CMP, 3040-3 #### [facility] ([id number]) [address] [place] [address] 09814Dcoaustlvl (Bld) [Volume fraction]34.2 %Thy15-99TgwNlmvphSouth Texas Health System EdinburgComment on above:Performed By: #### CBCChirag, 50571-9, CMP, 0-3 #### [facility] ([id number]) [address] [place] [address] 49817Jutbhbopcx (Bld) [Mass/Vol]12.2 g/dLLow13.0-17.0Ad[facility] Medical CenterComment on above:Performed By: #### CBCA, 40277-5, CMP, 3040-3 #### [facility] ([id number]) [address] [place] [address] 99284Larhjjotext (Bld) [#/Vol]1.8 10*3/uLNormal1.0-3.5PVeterans Health AdministrationComment on above:Performed By: #### CBCChirag, 90677-3, CMP, 3040-3 #### [facility] ([id number]) [address] [place] [address] 20176Lwqxgzziysr/100 WBC (Bld)39.1 %NormalProSouth Texas Health System Edinburg Comment on above:Performed By: #### CBCChirag, 05195-9, CMP, 3040-3 #### [facility] ([id number]) [address] [place] [address] 52544INB (RBC) [Entitic mass]31.9 ljOesnkc41-06IurCbplrbSouth Texas Health System EdinburgComment on above:Performed By: #### CBCChirag, 62597-1, CMP, 3040-3 #### [facility] ([id number]) [address] [place] [address] 73626EKPS (RBC) [Mass/Vol]35.6 g/aOJsqebq28-24XonSwkkcxSouth Texas Health System EdinburgComment on above:Performed By: #### CBCChirag, 37971-5, CMP, 3040-3 #### [facility] ([id number]) [address] [place] [address] 69795SAC (RBC) [Entitic vol]90 nCAvveub51-338ImtQrcvww [facility] HospitalComment on above:Performed By: #### CBCA, 69758-3, CMP, 3040-3 #### [facility] ([id number]) [address] [place] [address] 96891Cooudwlib (Bld) [#/Vol]0.5 10*3/uLNormal0-0.9Ad[facility] Medical CenterComment on above:Performed By: #### CBCA, 52883-7, CMP, 3040-3 #### [facility] ([id number]) [address] [place] [address] 77813Nbdututrx/100 WBC (Bld)10.4 %NormalAdams County Regional Medical Center Comment on above:Performed By: #### CBCA, 79699-7, CMP, 3040-3 #### [facility] ([id number]) [address] [place] [address] 08239Znqzazlhivm/100 WBC (Bld)45.9 %[facility] Comment on above:Performed By: #### CBCA, 27618-8, CMP, 3040-3 #### [facility] ([id number]) [address] [place] [address] 32915Hxypqbrg mean volume (Bld) [Entitic vol]7.5 fLNormal7-12 [facility] Medical CenterComment on above:Performed By: #### CBCChirag, 93947-8, CMP, 3040-3 #### [facility] ([id number]) [address] [place] [address] 21477Nepauknjr (Bld) [#/Vol]271 10*3/jPJjpmhc500-115FgsSemwdfAdams County Regional Medical CenterComment on above:Performed By: #### CBCA, 62951-7, CMP, 3040-3 #### [facility] ([id number]) [address] [place] [address] 60987KSD COUNT3.81 X10E12/LLow4.10-5.70[facility] Comment on above:Performed By: #### CBCA, 66087-7, CMP, 3040-3 #### [facility] ([id number]) [address] [place] [address] 37919ZNT (Bld) [#/Vol]4.6 10*3/uLNormal4.0-11.0[facility] Medical CenterComment on above:Performed By: #### CBCA, 38970-8, CMP, 3040-3 #### [facility] ([id number]) [address] [place] [address] 20389CTXRWPEJLERLN METABOLIC PANELon 20-32-5596Bapqrma [Mass/Vol]3.5 g/dLNormal3.2-5.3PVeterans Health AdministrationComment on above:Performed By: #### LILA, 29415-9, CMP, 3040-3 #### [facility] ([id number]) [address] [place] [address] 28216QVD [Catalytic activity/Vol]61 U/YUwgexm35-337TdiLpgxgsSouth Texas Health System EdinburgComment on above:Performed By: #### LILA, 33400-9, CMP, 3040-3 #### [facility] ([id number]) [address] [address], [place] [address]GOE [Catalytic activity/Vol]141 U/LHigh0-40ProSouth Texas Health System EdinburgComment on above:Performed By: #### LILA, 24186-8, CMP, 3040-3 #### [facility] ([id number]) [address] [address], [place] [address]Hnjqq gap [Moles/Vol]6 mmol/LNormal5-15ProSouth [facility] Health System EdinburgComment on above:Performed By: #### LILA, 78677-2, CMP, 3040-3 #### [facility] ([id number]) [address] [place] [address] 91511MKY [Catalytic activity/Vol]96 U/LHigh0-41ProSouth [facility] Health System EdinburgComment on above:Performed By: #### LILA, 14420-9, CMP, 3040-3 #### [facility] ([id number]) [address] [place] [address] 47699Cybqsdrey [Mass/Vol]0.8 mg/dLNormal0.3-1.2PVeterans Health AdministrationComment on above:Performed By: #### LILA, 95597-3, CMP, 3040-3 #### [facility] ([id number]) [address] [place] [address] 54781Oakdrhu [Mass/Vol]8.1 mg/dLLow8.5-10.5PVeterans Health AdministrationComment on above:Performed By: #### LILA, 45552-9, CMP, 3040-3 #### [facility] ([id number]) [address] [place] [address] 25216Hacilsgr [Moles/Vol]108 mmol/XPtysoj16-702MxzWletrbSouth Texas Health System EdinburgComment on above:Performed By: #### LILA, 79147-0, YAQUELIN, 3040-3 #### [facility] ([id number]) [address] [place] [address] 92893QY3 [Moles/Vol]23 mmol/AFpyzzc56-46HuqIqcctbVeterans Health Administration Comment on above:Performed By: #### LILA, 25518-0, YAQUELIN, 3040-3 #### [facility] ([id number]) [address] [place] [address] 91782Onxoqrcydw [Mass/Vol]1.17 mg/dLNormal0.70-1.20[facility] Medical CenterComment on above:Result Comment: METHOD TRACEABLE TO IDMS STANDARD Performed By: #### LILA, 60862-1, CMP, 3040-3 #### [facility] ([id number]) [address] [place] [address] 10702NJP/1.73 sq M.predicted among non-blacks MDRD (S/P/Bld) [Vol rate/Area]81 mL/min/{1.73_m2}Normal>59ProSouth Texas Health System EdinburgComment on above:Result Comment: Reported eGFR is based on the CKD-EPI 2020 equation that does not use a race coefficient.Performed By: #### LILA, 70885-3, CMP, 3040-3 #### [facility] ([id number]) [address] [place] [address], [place] [address]Aitdohe [Mass/Vol]105 mg/wHEtrl60-91XxiGhywyaAdams County Regional Medical Center Comment on above:Performed By: #### LILA, 92748-6, CMP, 3040-3 #### [facility] ([id number]) [address] [address], [place] [address]Qqoaakdkt [Moles/Vol]3.5 mmol/LNormal3.5-5.0ProSouth Texas Health System EdinburgComment on above:Performed By: #### LILA, 67606-6, CMP, 3040-3 #### [facility] ([id number]) [address] [address], [place] [address]Boighsc [Mass/Vol]6.2 g/dLNormal6.0-8.0ProSouth Texas Health System EdinburgComment on above:Performed By: #### LILA, 56340-8, CMP, 3040-3 #### [facility] ([id number]) [address] [address], [place] [address]Tjjfch [Moles/Vol]137 mmol/WZcqyvq990-387FshSpnupr Fremont HospitalComment on above:Performed By: #### LILA, 88563-8, CMP, 3040-3 #### [facility] ([id number]) [address] [address], [place] [address]Zhie nitrogen [Mass/Vol]20 mg/dLNormal5-23ProSouth Texas Health System EdinburgComment on above:Performed By: #### LILA, 91876-3, CMP, 3040-3 #### [facility] ([id number]) [address] [place] [address]VWKCOUth 97-99-1938Ohvymx [Catalytic activity/Vol]29 U/LNormal 17-40ProSouth Texas Health System EdinburgComment on above:Performed By: #### LILA, 51673- 6, CMP, 3040-3 #### [facility] ([id number]) [address] [facility]LO[address] [place], [place] [address]WVUX/FLU A+B/RSV by NAAT/Molecularon 13-66-6754PMXG/FLU A+B/RSV by NAAT/MolecularFLU A PCR Negative (qualifier value) FLU B PCR Negative (qualifier value) RSV by PCR Negative (qualifier value) SARS CoV 2 Not detected (qualifier value) NOTE The Xpert Xpress SARS-CoV-2/Flu/RSV Plus test is a rapid, multiplexed real-time RT-PCR test intended for the simultaneous qualitative detection and differentiation of SARS-CoV-2, influenza A, influenza B and respiratory syncytial virus (RSV) viral RNA from individuals suspected of respiratory viral infection consistent with COVID-19 by their healthcare provider. This test has not been validated in asymptomatic patients. The Xpert Xpress SARS-CoV-2 test is intended for use by qualified and trained operators who are performing tests using either [employer] or [employer] systems and is limited to laboratories that meet the CLIA requirements to perform high and moderate complexity tests. The Xpert Xpress SARS-CoV-2/Flu/RSV Plus is only for use under the Food and Drug Administration's Emergency Use Authorization. Results are for the simultaneous detection and differentiation of SARS-CoV-2, influenza A, influenza B and RSV nucleic acids in clinical specimens. SARS-CoV-2, influenza A, influenza B and RSV RNA identified by this test are generally detectable in upper respiratory samples during the acute phase of infection. Positive results are indicative of the presence of the identified virus, but do not rule out bacterial infection or co-infection with other pathogens not detected by this test. Clinical correlation with patient history and other diagnostic information is necessary to determine patient infection status. The agent detected may not be the definite cause of disease. Negative results do not preclude SARS-CoV-2, influenza A, influenza B and RSV infection and should not be used as the sole basis for treatment or other patient management decisions. Negative results must be combined with clinical observations, patient history and epidemiological information. An Invalid result may occur with specimen-associated inhibition unable to be resolved with specimen repeat. Fact Sheet for Healthcare Providers: https://www.fda.gov/media/294973/download Fact Sheet for Patients: https://www.fda.gov/media/978226/downloadNormalProMedica Menlo Park Va HospitalComment on above:Performed By: #### COVFLR #### [facility] ([id number]) [address] [facility] [place], [place] [address]Aulenbn aminotransferase [Enzymatic activity/volume] in Serum or PlasmaOrdered By: Selin Rowe on 62-49-6787VWL [Catalytic activity/Vol]147 U/LHigh7-52[facility] HospitalComment on above:Performed By: #### AMM #### [place] [address] USAAlbumin [Mass/volume] in Serum or Plasma by Bromocresol green (BCG) dye binding methoOrdered By: Selin Rowe on 24-08-7630Sgalqke BCG dye [Mass/Vol]3.7 g/dL3.5-5.7FRiverview Health InstituteAlkaline phosphatase [Enzymatic activity/volume] in Serum or PlasmaOrdered By: Selin Rowe on 42-84-7259WBJ [Catalytic activity/Vol]56 U/NTmsmuv58-081EspmxwsxeMercy Health St. Elizabeth Youngstown HospitalComment on above:Performed By: #### AMM #### [place] [address] USAAspartate aminotransferase [Enzymatic activity/volume] in Serum or PlasmaOrdered By: Selin Rowe on 71-87-1680DZV [Catalytic activity/Vol] 74 U/EQgvh08-33ZyrmjzlhtMercy Health St. Elizabeth Youngstown HospitalComment on above:Performed By: #### AMM #### [facility] [address] [place] [address] USABasic Metabolic Panelon 15-33-6237Pmgqbyanaf Clr Calc Qjlmxpri65.69[facility] Physician GroupComment on above:Result Comment: PERFORMED BY: [place] [address] PATHOLOGIST [employer] CHARLES COBOS M.D.Performed By: #### BMP, HEPATIC #### [facility] [address] [place] [address] USAPerformed By: #### AMM #### [facility] [address] [place] [address] USAGFR/1.73 sq M.predicted MDRD (S/P/Bld) [Vol rate/Area] mL/min/{1.73_m2}NormalThe [facility] Physician GroupComment on above:Performed By: #### BMP, HEPATIC #### [facility] [address] [place] [address] USAPerformed By: #### AMM #### [place] [address] USABilirubin.direct [Mass/volume] in Serum or PlasmaOrdered By: Selin Rowe on 72-63-1297Fipdojmcp.direct [Mass/Vol]0.20 mg/dLHigh0.03-0.[address] [facility] HospitalBilirubin.total [Mass/volume] in Serum or PlasmaOrdered By: Selin Rowe on 69-39-8709Lwepdgtae [Mass/Vol]0.7 mg/dLNormal 0.3-1.0[facility] Elizabeth Youngstown HospitalComment on above:Performed By: #### AMM #### [place] [address] USACalcium [Mass/volume] in Serum or PlasmaOrdered By: Selin Rowe on 61-29-2518Mocldzf [Mass/Vol]8.7 mg/dLNormal8.6-10.3FRiverview Health InstituteComment on above:Performed By: #### BMP, HEPATIC #### [facility] [address] [place] [address] USAPerformed By: #### AMM #### [place] [address] USACarbon dioxide, total [Moles/volume] in Serum or Plasma Ordered By: Selin Rowe on 46-25-0191RA7 [Moles/Vol]34.4 mmol/LHigh21.0-31.[address] Elizabeth Youngstown HospitalComment on above:Performed By: #### BMP, HEPATIC #### [place] [address] USAPerformed By: #### AMM #### [facility] [address] [place] [address] USAChloride [Moles/volume] in Serum or PlasmaOrdered By: Selin Jae on 02-67-8190Xjldcvni [Moles/Vol]95 mmol/HDkk88-070TyzrqdweaMercy Health St. Elizabeth Youngstown HospitalComment on above:Performed By: #### BMP, HEPATIC #### [facility] [address] [place] [address] USAPerformed By: #### AMM #### [place] [address] USACreatinine [Mass/volume] in Serum or PlasmaOrdered By: Selin Jae on 69-20-9078Avdlrvpxoa [Mass/Vol]0.85 mg/dLNormal0.70-1.30[facility] HospitalComment on above:Performed By: #### BMP, HEPATIC #### [facility] [address] [place] [address] USAPerformed By: #### AMM #### [place] [address] USAGlucose [Mass/volume] in Serum or PlasmaOrdered By: Selin Rowe on 88-68-0736Swmpakb [Mass/Vol]93 mg/cGHiplxc02-646StkozyracMercy Health St. Elizabeth Youngstown HospitalComment on above:ADA recommended reference rangeRandom Glucose Reference Range is dependent on time and content of last meal. Glucose of more than 200 mg/dL in a nonstressed, ambulatory subject supports the diagnosisof Diabetes Mellitus.Result Comment: Random Glucose Reference Range is dependent on time and content of last meal. Glucose of more than 200 mg/dL in a nonstressed, ambulatory subject supports the diagnosis of Diabetes Mellitus. ADA recommended reference rangePerformed By: #### BMP, HEPATIC #### [facility] [address] [place] [address] USAPerformed By: #### AMM #### [facility] [address] [place] [address] USAHepatic Panelon 18-64-2557Zujfipq [Mass/Vol]3.7 g/dLNormal 3.5-5.7The [facility] Physician GroupComment on above:Performed By: #### AMM #### [facility] [address] [place] [address] USABilirubin,Indirect0.5 mg/dLNormalThe [facility] Physician [facility] HospitalComment on above:Performed By: #### AMM #### [facility] [address] [place] [address] USABilirubin.indirect [Mass/Vol]0.20 mg/dLHigh0.03-0.18The [facility] Physician GroupComment on above:Performed By: #### AMM #### [place] [address] USANo Panel InformationOrdered By: Selin Rowe on 06-07-2024 Estimated GFR (CKD-EPI)> 60.0 mL/MinMercy Health St. Elizabeth Youngstown HospitalPharmacy Creatinine Clearance (Chem90.69[facility] HospitalPotassium [Moles/volume] in Serum or PlasmaOrdered By: Selin Rowe on 34-54-2943Rklpzrkzz [Moles/Vol]4.0 mmol/LNormal3.5-5.1FRiverview Health InstituteComment on above:Performed By: #### BMP, HEPATIC #### [place] [address] USAPerformed By: #### AMM #### [place] [address] USAProtein [Mass/volume] in Serum or PlasmaOrdered By: Selin Rowe on 12-59-9731Ibzwhiw [Mass/Vol]6.3 g/dLLow6.4-8.9[facility] HospitalComment on above:Performed By: #### AMM #### [place] [address] USASerum globulin measurement by calculation (mass/volume) Ordered By: Selin Rowe on 66-65-5496Gxvhfwvv (S) [Mass/Vol]2.6 g/dLNormal [facility] HospitalComment on above:Performed By: #### AMM #### [address] [place] [address] USASerum or plasma albumin/globulin mass ratioOrdered By: Selin Rowe on 20-62-4927Iyifixp/Globulin [Mass ratio]1.4 {ratio}NormalMercy Health St. Elizabeth Youngstown HospitalComment on above:Performed By: #### AMM #### [place] [address] USASerum or plasma anion gap determinationOrdered By: Selin Rowe on 79-05-9717Yaktv gap [Moles/Vol]10.6 mmol/LNormal6.0-15.0[facility] HospitalComment on above:Performed By: #### BMP, HEPATIC #### [place] [address] USAPerformed By: #### AMM #### [place] [address] USASerum or plasma non-glucuronidated bilirubin measurement (mass/volume)Ordered By: Selin Rowe on 14-78-9115Qirvlseii.indirect [Mass/Vol] 0.5 mg/dLACMC Healthcare System Glenbeighodium [Moles/volume] in Serum or PlasmaOrdered By: Selin Rowe on 91-57-3318Inazlq [Moles/Vol]136 mmol/LNormal 136-145[facility] St[facility] Elizabeth [facility] HospitalComment on above:Performed By: #### BMP, HEPATIC #### [place] [address] USAPerformed By: #### AMM #### [place] [address] USAUrea nitrogen [Mass/volume] in Serum or PlasmaOrdered By: Selin Rowe on 18-16-9928Fwew nitrogen [Mass/Vol]16 mg/dLNormal7-25[facility] HospitalComment on above:Performed By: #### BMP, HEPATIC #### [place] [address] USAPerformed By: #### AMM #### [place] [address] USAAmmonia [Moles/volume] in PlasmaOrdered By: Naren Hinson on 37-79-5788Voepieq (P) [Moles/Vol]33 umol/UDetzyb20-36XelwmgwhrMercy Health St. Elizabeth Youngstown HospitalComment on above:Result Comment: PERFORMED BY: [facility] [address] [place] [id number] PATHOLOGIST [employer]ER CHARLES COBOS M.D.Performed By: #### AMM #### [place] [address] USAArterial Blood Gason 52-88-1192WEF Base Excess6.1 mmol/L High-3.0-3.0The [facility] Physician GroupComment on above:Performed By: #### ABG #### Point of Care testing ,ABG Frac Inspired O240 %NormalThe [facility] Hospital Physician GroupComment on above: Performed By: #### ABG #### Point of Care testing ,ABG Oxygen Content8.7 mmol/LNormal6.6-9.7The [facility] Physician GroupComment on above:Performed By: #### ABG #### Point of Care testing ,ABG Oxygen Xvhkxwrwpx61.2 %Zrjals85.0-100.0The [facility] Physician GroupComment on above:Performed By: #### ABG #### Point of Care testing ,ABG HIK123.7 mm[Hg]Zywgvu84.0-45.0The [facility] Physician GroupComment on above:Performed By: #### ABG #### Point of Care testing ,ABG JJEK3QubepfYudUNC Health Rex Holly Springs Physician GroupComment on above:Performed By: #### ABG #### Point of Care testing ,ABG PH7.52Kbjp3.35-7.45The [facility] Physician GroupComment on above:Performed By: #### ABG #### Point of Care testing ,ABG WV4094.8 mm[Hg]Off scale high80.0-100.0The [facility] Physician GroupComment on above:Performed By: #### ABG #### Point of Care testing ,ABG Pressure Azwqulj60.0NoUNC Health Rex Holly Springs Physician GroupComment on above: Performed By: #### ABG #### Point of Care testing ,Oxygen DeviceBiPAPNormalThe [facility] Physician GroupComment on above:Performed By: #### ABG #### Point of Care testing ,Respiratory CriticalBaptist Health Doctors Hospital Physician GroupComment on above:Result Comment: Critical Value called on: 06/06/2024 at 05:17 PERFORMED BY: [place] [address] PATHOLOGIST [employer] CHARLES COBOS M.D.Performed By: #### ABG #### Point of Care testing ,VBG Draw SiteRight RadialBaptist Health Doctors Hospital Physician GroupComment on above: Performed By: #### ABG #### Point of Care testing ,Arterial Blood GasOrdered By: Maryam Díaz on 98-48-4752SB8 [Moles/Vol]31.9 mmol/LHigh23.0-27.0[facility] HospitalComment on above:Performed By: #### ABG #### Point of Care testing ,HCO3 (Bld) [Moles/Vol]30.6 mmol/LHigh23.0-29.0[facility] Comment on above:Performed By: #### ABG #### Point of Care testing ,Bacteria [Presence] in Urine by AutomatedOrdered By: Selin Rowe on 06-06-2024 Bacteria Auto Ql (U)None seen [HPF]None SeenMercy Health St. [facility] Hospital Bilirubin Test strip Ql (U)Ordered By: Selin Rowe on 15-84-6282Jfsbhgxwt Ql (U) NegativeNegativeMercy Health St. Elizabeth Youngstown HospitalColor of Urine by AutoOrdered By: Selin Rowe on 33-27-1753Qkitx (U)YellowNormalYellowMercy Health St. Elizabeth Youngstown HospitalComment on above:Order Comment: Name Collection Type:: Clean- Voided MidstreamPerformed By: #### ADDONUAPLUS #### [place] [address] USAComprehensive Metabolic Panelon 45-83-1143Ictxtxc [Mass/Vol]3.8 g/dLNormal3.5-5.7The [facility] Physician GroupComment on above: Performed By: #### TSH3, CMP #### [facility] [address] [place] [id number] USAAlbumin/Globulin [Mass ratio]1.3 {ratio}NormalThe [facility] Physician GroupComment on above:Performed By: #### TSH3, CMP #### [facility] [address] [place] [id number] USAALP [Catalytic activity/Vol]61 U/JFoknbn13-586Rap [facility] Physician GroupComment on above:Performed By: #### TSH3, CMP #### [facility] [address] [place] [address] USAALT [Catalytic activity/Vol]183 U/LHigh7-52The [facility] Physician GroupComment on above:Performed By: #### TSH3, CMP #### [facility] [address] [place] [address] USAAnion gap [Moles/Vol]8.6 mmol/LNormal6.0-15.0The [facility] Physician GroupComment on above:Performed By: #### TSH3, CMP #### [facility] [address] [place] [address] USAAST [Catalytic activity/Vol]93 U/ZWawp82-81Vgc [facility] Physician GroupComment on above:Performed By: #### TSH3, CMP #### [facility] [address] [place] [address] USABilirubin [Mass/Vol]0.6 mg/dLNormal0.3-1.0The [facility] Physician GroupComment on above:Performed By: #### TSH3, CMP #### [facility] [address] [place] [address] USACalcium [Mass/Vol]8.7 mg/dLNormal8.6-10.3The [facility] Physician GroupComment on above:Performed By: #### TSH3, CMP #### [facility] [address] [place] [address] USAChloride [Moles/Vol]98 mmol/TCotuwn63-803Xwy [facility] Physician GroupComment on above:Performed By: #### TSH3, CMP #### [facility] [address] [place] [address] USACO2 [Moles/Vol]35.1 mmol/LHigh21.0-31.0The [facility] Physician GroupComment on above:Performed By: #### TSH3, CMP #### [facility] [address] [place] [address] USACreatinine [Mass/Vol]1.04 mg/dLNormal0.70-1.30The [facility] Physician GroupComment on above:Performed By: #### TSH3, CMP #### [facility] [address] [place] [address] USACreatinine Clr Calc Vvxudgyj43.39NormBeraja Medical Institute Physician GroupComment on above:Performed By: #### TSH3, CMP #### [place] [address] USAGFR/1.73 sq M.predicted MDRD (S/P/Bld) [Vol rate/Area] mL/min/{1.73_m2}NormalThe [facility] Physician GroupComment on above:Performed By: #### TSH3, CMP #### [place] [address] USAGlobulin (S) [Mass/Vol]2.9 g/dLNoUNC Health Rex Holly Springs Physician GroupComment on above:Performed By: #### TSH3, CMP #### [place] [address] USAGlucose [Mass/Vol]115 mg/fHLqlf70-195Qvy [facility] Physician GroupComment on above:Result Comment: Random Glucose Reference Range is dependent on time and content of last meal. Glucose of more than 200 mg/dL in a nonstressed, ambulatory subject supports the diagnosis of Diabetes Mellitus. ADA recommended reference rangePerformed By: #### TSH3, CMP #### [facility] [address] [place] [address] USAPotassium [Moles/Vol]4.7 mmol/LNormal3.5-5.1The [facility] Physician GroupComment on above:Performed By: #### TSH3, CMP #### [facility] [address] [place] [address] USAProtein [Mass/Vol]6.7 g/dLNormal6.4-8.9The [facility] Physician GroupComment on above:Performed By: #### TSH3, CMP #### [facility] [address] [place] [address] USASodium [Moles/Vol]137 mmol/KIqwhck093-155Kpb [facility] Physician GroupComment on above:Performed By: #### TSH3, CMP #### [facility] [address] [place] [address] USAUrea nitrogen [Mass/Vol]19 mg/dLNormal7-25The [facility] Physician GroupComment on above:Performed By: #### TSH3, CMP #### [place] [address] USADipstick and Microscopicon 55-26-6226Fpyodlxa,UrineNone SeenNormalNone SeenThe [facility] Physician GroupComment on above:Order Comment: Name Collection Type:: Clean-Voided MidstreamPerformed By: #### ADDONUAPLUS #### [place] [address] USABilirubin,UrineNegativeNormalNegativeThe [facility] Physician GroupComment on above:Order Comment: Name Collection Type:: Clean- Voided MidstreamPerformed By: #### ADDONUAPLUS #### [place] [address] USAGlucose Ql (U)200 mg/dLHighNoFirelands Regional Medical Centere [facility] Physician GroupComment on above:Order Comment: Name Collection Type:: Clean-Voided MidstreamPerformed By: #### ADDONUAPLUS #### [place] [address] USAHyaline Casts,UrineNoneNormal0-8The [facility] Physician GroupComment on above:Order Comment: Name Collection Type:: Clean-Voided MidstreamPerformed By: #### ADDONUAPLUS #### [place] [address] USAMucus,UrineRareNormalThe [facility] Physician GroupComment on above:Order Comment: Name Collection Type:: Clean-Voided MidstreamResult Comment: PERFORMED BY: [place] [address] PATHOLOGIST [employer]GGER CHARLES COBOS M.D.Performed By: #### ADDONUAPLUS #### [place] [address] USANitrite,UrineNegativeNormalNegativeThe [facility] Physician GroupComment on above:Order Comment: Name Collection Type:: Clean-Voided MidstreamPerformed By: #### ADDONUAPLUS #### [place] [address] USAOccult Blood,UrineNegativeNormalNegativeThe [facility] Physician GroupComment on above:Order Comment: Name Collection Type:: Clean- Voided MidstreamResult Comment: PERFORMED BY: [place] [address] PATHOLOGIST [employer]GG[employer] CHARLES COBOS M.D.Performed By: #### ADDONUAPLUS #### [place] [address] USARBC,Oxshk0-7Lfocng7-3Gza [facility] Physician GroupComment on above:Order Comment: Name Collection Type:: Clean-Voided MidstreamPerformed By: #### ADDONUAPLUS #### [place] [address] USASpecificy [place],Urine1.561Bqsqnv5.001-1.030The [facility] Physician GroupComment on above:Order Comment: Name Collection Type:: Clean- Voided MidstreamPerformed By: #### ADDONUAPLUS #### [place] [address] USAUrobilinogen,UrineNormalNormalNormalThe [facility] Physician GroupComment on above:Order Comment: Name Collection Type:: Clean- Voided MidstreamPerformed By: #### ADDONUAPLUS #### [place] [address] USAWBC,Kqbgm6-7Hudm2-2Mjj [facility] Physician GroupComment on above:Order Comment: Name Collection Type:: Clean-Voided MidstreamPerformed By: #### ADDONUAPLUS #### [facility] [address] [place] [id number] USAEpithelial cells.squamous [#/area] in Urine sediment by Automated countOrdered By: Selin Rowe on 14-43-0183Tbpmlhpssb cells.squamous Auto (Urine sed) [#/Area]N/AFRiverview Health InstituteErythrocytes [#/area] in Urine sediment by Automated countOrdered By: Selin Rowe on 60-80-1055PVY Auto (Urine sed) [#/Area]3-4 [HPF]0-4FRiverview Health InstituteGlucose [Mass/volume] in Urine by Test stripOrdered By: Selin Rowe on 20-46-3840Fawzsci Test strip (U) [Mass/Vol]200 mg/dLHighNormTrinity Health System West CampusHemoglobin Test strip Ql (U)Ordered By: Selin Rowe on 06-06-2024 Hemoglobin Ql (U)NegativeNegativeMercy Health St. Elizabeth Youngstown HospitalHepatitis Acute Panelon 83-19-9610YMnAi ScreenNegativeNormalNegativeThe [facility] Physician GroupComment on above:Order Comment: Comment add RE TIME FOR AM LABS PER RN JANELL PSW 1741Performed By: #### AMM #### [facility] [address] [place] [address] USAHCV Rxn928.775Normal.The [facility] Physician GroupComment on above:Order Comment: Comment add RE TIME FOR AM LABS PER RN JANELL PSW 1741 Result Comment: Result Units: log10 IU/mLPerformed By: #### AMM #### [facility] [address] [place] [address] USAHepatitis A Antibody IgMNegativeNormalNegativeThe [facility] Physician GroupComment on above:Order Comment: Comment add RE TIME FOR AM LABS PER RN JANELL PSW 1741Result Comment: A negative anti-HAV IgM result suggests no recent or current HAV infection.Performed By: #### AMM #### [place] [address] USAHepatitis B Core Antibody IgMNegativeNormalNegativeThe [facility] Physician GroupComment on above:Order Comment: Comment add RE TIME FOR AM LABS PER RN JANELL PSW 1741Performed By: #### AMM #### [place] [address] USAHepatitis C Wgonykrbmvwp5285596Wpxtkx.The [facility] Hospital Physician GroupComment on above:Order Comment: Comment add RE TIME FOR AM LABS PER RN JANELL PSW 1741Performed By: #### AMM #### [place] [address] USAHepatitis C Virus AntibodyReactiveCritically abnormalNon ReactiveThe [facility] Physician GroupComment on above:Order Comment: Comment add RE TIME FOR AM LABS PER RN JANELL PSW 1741Performed By: #### AMM #### [place] [address] USAInterpretationCommentNormal.The [facility] Comment on above:Order Comment: Comment add RE TIME FOR AM LABS PER RN JANELL PSW 1741Result Comment: Positive HCV antibody screen with the presence of HCV RNA is consistent with active infection. Performed at: - [facility] [id number] Firmware Engineer: Chad Knowles PhD, Phone: [phone] Performed at: [facility] [id number] Firmware Engineer: Radha Cavazos MD, Phone: [phone] PERFORMED BY: [place] [address] PATHOLOGIST [employer]GG[employer] CHARLES COBOS M.D.Performed By: #### AMM #### [place] [address] USATest Information:CommentNormal.The [facility] Physician GroupComment on above:Order Comment: Comment add RE TIME FOR AM LABS PER RN JANELL PSW 1741Result Comment: The quantitative range of this assay is 15 IU/mL to 100 million IU/mL.Performed By: #### AMM #### [facility] [address] [place] [address] USAHyaline casts [#/area] in Urine sediment by Automated countOrdered By: Selin Rowe on 38-54-3870Iokdmjz casts Auto (Urine sed) [#/Area]None [LPF]0-8[facility] HospitalKetones [Presence] in Urine by Test stripOrdered By: Selin Rowe on 88-04-3734Urabrjg Ql (U)1+High NegativeMercy Health St. Elizabeth Youngstown HospitalComment on above:Order Comment: Name Collection Type:: Clean-Voided MidstreamPerformed By: #### ADDONUAPLUS #### [facility] [address] [id number] USALeukocyte esterase [Presence] in Urine by Test strip Ordered By: Selin Rowe on 78-78-5693Bfcalyzas esterase Test strip Ql (U) NegativeNormalNegAultman Orrville HospitalComment on above:Order Comment: Name Collection Type:: Clean-Voided MidstreamPerformed By: #### ADDONUAPLUS #### [facility] [address] [id number] USALeukocytes [#/area] in Urine sediment by Automated count Ordered By: Selin Rowe on 53-73-5604ETZ Auto (Urine sed) [#/Area]5-9 [HPF]High 0-4FRiverview Health InstituteMucus [Presence] in Urine by Automated Ordered By: Selin Rowe on 15-49-1897Baloo Auto Ql (U)Rare [LPF][facility] HospitalNitrite Test strip Ql (U)Ordered By: Selin Rowe on 09-60-0234Arzpsmb Ql (U)NegativeNegativeMercy Health St. Elizabeth [facility] HospitalNo Panel InformationOrdered By: Maryam Díaz on 23-41-1010Wsnyonnr Blood Base Excess6.1 mmol/LHigh-3.0-3.0[facility] HospitalArterial Blood Oxygen Content8.7 mmol/L6.6-9.7FRiverview Health InstituteArterial Blood Oxygen Hxmldokwrj39.2 %95.0-100.0[facility] HospitalArterial Blood Partial Pressure CO243.7 mm[Hg]35.0-45.0[facility] Arterial Blood Partial Pressure O2150.8 mm[Hg]High80.0-100.0[facility] HospitalArterial Blood pH7.25Fsbh7.35-7.45[facility] HospitalBlood Gas Critical ValueSee commentMercy Health St. [facility] Comment on above:Critical Value called on: 06/06/2024 at 05:17Blood Gas PEEP5 keK1PJovryplfdMercy Health St[address] [facility] HospitalBlood Gas Pressure Yzzaloy56.[address] [facility] HospitalBlood Gas Sample SiteRight radialMercy Health St. Elizabeth [facility]stown HospitalFiO240 %[facility] HospitalOxygen Delivery DeviceBipaMercer County Community HospitalProtein [Mass/volume] in Urine by Test stripOrdered By: Selin Rowe on 40-30-2027Fgkcoyk (U) [Mass/Vol]20 mg/dL HighNegativeMercy Health St. Elizabeth Youngstown HospitalComment on above:Order Comment: Name Collection Type:: Clean-Voided MidstreamPerformed By: #### ADDONUAPLUS #### [facility] [address] [place] [address] USASpecific gravity Test strip (U) [Rel density]Ordered By: Selin Rowe on 67-45-8431Daqopklu gravity (U) [Rel density]1.0241.001-1.[address] [facility] HospitalThyrotropin [Units/volume] in Serum or Plasma Ordered By: Naren Hinson on 75-08-4442PQD Qn0.49 m[IU]/LNormal0.45-5.[address] [facility] HospitalComment on above:Result Comment: PERFORMED BY: [place] [address] PATHOLOGIST [employer] PEGGER CHARLES COBOS M.D.Performed By: #### TSH3, CMP #### [facility] [address] [place] [address] USAUrine appearanceOrdered By: Selin Rowe on 06-06-2024 Appearance (U)ClearNormalClearMercy Health St. Elizabeth Youngstown HospitalComment on above: Order Comment: Name Collection Type:: Clean-Voided MidstreamPerformed By: #### ADDONUAPLUS #### [facility] [address] [place] [address] USAUrobilinogen Test strip (U) [Mass/Vol]Ordered By: Selin Rowe on 15-47-1583Ohsqohixwlai (U) [Mass/Vol]Normal mg/dLNormalMercy Health St. Elizabeth [facility] HospitalXR chest 1V portableon 28-93-7839DS chest 1V portable [facility] [address] [place] [address] [place] [address] XRay Report Signed Patient: Leonardo Roach MR#: [id number] : 1985 Acct:[id number] Age/Sex: 39 / M ADM Date: 06/05/24 Loc: Room: [address] [place] [address] Type: ADM IN Attending Dr: Maryam Díaz MD Copies to: FELIPE Eckert MD Ordering Provider: Selin Roew APRN Date of Service: 06/06/24 XR/XR chest [...] Mona Arriaza M.D.06/06/2024 1:56 PM Dictation Location: [place] [address] Transcribed By: [facility] 06/06/24 1356 Dictated By: Mona Arriaza MD 06/06/24 1353 Signed By: 06/06/24 1356[facility] Physician GrouppH of Urine by Test stripOrdered By: Selin Rowe on 46-85-0377aT (U)6.0 [pH]Normal5.0-9.0[facility] HospitalComment on above:Order Comment: Name Collection Type:: Clean- Voided MidstreamPerformed By: #### ADDONUAPLUS #### [facility] [address] [id number] USAAmmoniaon 22-01-6266Tljtoet (P) [Moles/Vol]46 umol/LHigh 11-35[facility] Physician GroupComment on above:Result Comment: PERFORMED BY: [place] [address] PATHOLOGIST [employer]GG[employer] CHARLES COBOS M.D.Performed By: #### AMM #### [facility] [address] [place], [place] [id number] USAArterial Blood Gason 49-01-9178GCK Base Excess2.4 mmol/L Normal-3.0-3.0The [facility] Physician GroupComment on above:Performed By: #### ABG #### Point of Care testing ,ABG Frac Inspired O232 %NormalThe [facility] Hospital Physician GroupComment on above: Performed By: #### ABG #### Point of Care testing ,ABG Liter Ujjd4KpjzzeSgl [facility] Physician GroupComment on above:Performed By: #### ABG #### Point of Care testing ,ABG Oxygen Content8.8 mmol/LNormal6.6-9.7The [facility] Physician GroupComment on above:Performed By: #### ABG #### Point of Care testing ,ABG Oxygen Iffdnwktsv08.1 %Iglsuz97.0-100.0[facility] Physician GroupComment on above:Performed By: #### ABG #### Point of Care testing ,ABG MIT283.9 mm[Hg]Off scale high35.0-45.0[facility] Physician GroupComment on above:Performed By: #### ABG #### Point of Care testing ,ABG PH7.25Low7.35-7.45The [facility] Physician GroupComment on above:Performed By: #### ABG #### Point of Care testing ,ABG AZ8442.2 mm[Hg]Off scale high80.0-100.0[facility] Physician GroupComment on above:Performed By: #### ABG #### Point of Care testing ,CO2 [Moles/Vol]34.1 mmol/LHigh23.0-27.0[facility] Physician [facility] HospitalComment on above:Performed By: #### ABG #### Point of Care testing ,HCO3 (Bld) [Moles/Vol]31.8 mmol/LHigh23.0-29.0[facility] Comment on above:Performed By: #### ABG #### Point of Care testing ,Respiratory CriticalBaptist Health Doctors Hospital Physician [facility] HospitalComment on above:Result Comment: Critical Value called on: 06/05/2024 at 18:15 PERFORMED BY: [place] [address] PATHOLOGIST [employer] CHARLES COBOS M.D.Performed By: #### ABG #### Point of Care testing ,VBG Draw SiteLeft RadialBaptist Health Doctors Hospital Physician [facility] HospitalComment on above: Performed By: #### ABG #### Point of Care testing ,Automated basophil %Ordered By: Selin Rowe on 00-85-4249Bkgbrvqbg/100 WBC (Bld)0.4 %Normal.[facility] HospitalComment on above:Performed By: #### AMM #### [facility] [address] [place] [address] USAAutomated basophil countOrdered By: Selin Rowe on 47-45-9585Ytlpldtff (Bld) [#/Vol]0.0 10*3/uLNormal0.0-0.2FRiverview Health InstituteComment on above:Result Comment: PERFORMED BY: [place] [address] PATHOLOGIST [employer]GG[employer] CHARLES COBOS M.D.Performed By: #### AMM #### [facility] [address] [place] [address] USAAutomated blood monocyte countOrdered By: Selin Rowe on 78-30-8196Bzkhdxiot (Bld) [#/Vol]0.8 10*3/uLNormal0.0-0.8[facility] HospitalComment on above:Performed By: #### AMM #### [facility] [address] [place] [address] USAAutomated eosinophil %Ordered By: Selin Jae on 98-16-7764Uuobpokbqds/100 WBC (Bld)0.8 %Normal.[facility] Comment on above:Performed By: #### AMM #### [place] [address] USAAutomated eosinophil countOrdered By: Selin Jae on 82-30-3999Kfawtcjfgkf (Bld) [#/Vol]0.1 10*3/uLNormal0.0-0.45[facility] HospitalComment on above:Performed By: #### AMM #### [place] [address] USAAutomated monocyte %Ordered By: Selinchirag Rowe on 06-05-2024 Monocytes/100 WBC (Bld)11.9 %Normal.[facility] HospitalComment on above:Performed By: #### AMM #### [place] [address] USAAutomated neutrophil %Ordered By: Selin Jae on 65-90-4743Gpsfhlhunvv/100 WBC (Bld)65.8 %Normal.[facility] HospitalComment on above:Performed By: #### AMM #### [place] [address] USABasic Metabolic Panelon 32-05-5874Hhpmd gap [Moles/Vol]9.3 mmol/LNormal6.0-15.0The [facility] Physician GroupComment on above:Performed By: #### AMM #### [place] [address] USACalcium [Mass/Vol]8.8 mg/dLNormal8.6-10.3The [facility] Physician GroupComment on above:Performed By: #### AMM #### [place] [address] USAChloride [Moles/Vol]98 mmol/RFxpfor03-823Tkr [facility] Physician GroupComment on above:Performed By: #### AMM #### [place] [address] USACO2 [Moles/Vol]34.2 mmol/LHigh21.0-31.0[facility] Physician GroupComment on above:Performed By: #### AMM #### [place] [address] USACreatinine [Mass/Vol]1.23 mg/dLNormal0.70-1.30The [facility] Physician GroupComment on above:Performed By: #### AMM #### [place] [address] USACreatinine Clr Calc Aelxkttc70.59NormalThe [facility] Physician GroupComment on above:Result Comment: PERFORMED BY: [place] [address] PATHOLOGIST [employer]GG[employer] CHARLES COBOS M.D.Performed By: #### AMM #### [place] [address] USAGFR/1.73 sq M.predicted MDRD (S/P/Bld) [Vol rate/Area] mL/min/{1.73_m2}NormalThe [facility] Physician GroupComment on above:Performed By: #### AMM #### [place] [address] USAGlucose [Mass/Vol]82 mg/eBUwenea59-697Dlf [facility] Physician GroupComment on above:Result Comment: Random Glucose Reference Range is dependent on time and content of last meal. Glucose of more than 200 mg/dL in a nonstressed, ambulatory subject supports the diagnosis of Diabetes Mellitus. ADA recommended reference rangePerformed By: #### AMM #### [place] [address] USAPotassium [Moles/Vol]4.5 mmol/LNormal3.5-5.1The [facility] Physician GroupComment on above:Performed By: #### AMM #### [place] [address] USASodium [Moles/Vol]137 mmol/VUkmhox188-589Bav [facility] Physician GroupComment on above:Performed By: #### AMM #### [facility] [address] [place] [address] USAUrea nitrogen [Mass/Vol]19 mg/dLNormal7-25The [facility] Physician GroupComment on above:Performed By: #### AMM #### [facility] [address] [place] [address] USACT head/brain wo conon 34-77-3613DT head/brain wo con [facility] [address] [place] [address] [place] [address] CT Scan Report Signed Patient: Leonardo Roach MR#: [id number] : 1985 Acct:[id number] Age/Sex: 39 / M ADM Date: 06/05/24 Loc: Room: [address] [place] [address] Type: ADM IN Attending Dr: Maryam Díaz [...] Paul Wayne M.D.06/05/2024 3:28 PM Dictation Location: [place] [address] Transcribed By: [facility] 06/05/241527 Dictated By: Paul Wayne II, MD 06/05/241525 Signed By: 06/05/24 1528[facility] Physician [facility] HospitalCapillary blood glucose measurement by glucometer (mass/volume)Ordered By: Maryam Díaz on 06-05-2024 Glucose [Mass/Vol]79 mg/dLNoMount Carmel Health SystemComment on above:Random Glucose Reference Range is dependent on time and content of last meal. Glucose of more than 200 mg/dL in a nonstressed, ambulatory subject supports the diagnosis of Diabetes Mellitus.Result Comment: Random Glucose Reference Range is dependent on time and content of last meal. Glucose of more than 200 mg/dL in a nonstressed, ambulatory subject supports the diagnosis of Diabetes Mellitus.Performed By: #### GLULS #### Point of Care testing ,Complete Blood Count Auto Diffon 95-01-8941Qeem Corpuscular HGB Conc34.3 g/dL Dneqlb39.5-35.6[facility] Physician [facility] HospitalComment on above:Performed By: #### AMM #### [facility] [address] [place] [address] USANRBC%0.0 /100{WBC}Normal0-0.5[facility] Physician [facility] Comment on above:Performed By: #### AMM #### [facility] [address] [id number] USAErythrocyte distribution width [Ratio] by Automated count Ordered By: Selin Rowe on 99-39-7336Fyjzipnepmr distribution width (RBC) [Ratio]13.6 %Rbifty15.0-14.8[facility] HospitalComment on above: Performed By: #### AMM #### [facility] [address] [id number] USAErythrocytes [#/volume] in Blood by Automated countOrdered By: Selin Rowe on 76-30-4897MVB (Bld) [#/Vol]4.21 10*6/uLNormal3.90-5.[address] [facility] HospitalComment on above:Performed By: #### AMM #### [facility] [address] [id number] USAGlucose Poct Glucometerson 85-39-1822Rsnqltv6Jyf6: Cleaned [facility] Physician GroupComment on above:Result Comment: PERFORMED BY: [place] [address] PATHOLOGIST [employer] CHARLES COBOS M.D.Performed By: #### GLULS #### Point of Care testing ,Hematocrit [Volume Fraction] of Blood by Automated countOrdered By: Selin Rowe on 79-91-2399Lofdxumroy (Bld) [Volume fraction]39.4 %Phcgjm64.8-50.0[facility] HospitalComment on above:Performed By: #### AMM #### [facility] [address] [place], [place] [address] USAHemoglobin [Mass/volume] in BloodOrdered By: Selin Rowe on 36-50-8460Soaxqmsmji (Bld) [Mass/Vol]13.5 g/kBGdlhjp85.0-17.0[facility] HospitalComment on above:Performed By: #### AMM #### [facility] [address] [place], [place] [address] USALeukocytes [#/volume] corrected for nucleated erythrocytes in Blood by Automated counOrdered By: Selin Rowe on 15-44-5505HEP corrected for nucl RBC Auto (Bld) [#/Vol]6.6 10*3/uL4.1-10.5FRiverview Health InstituteLeukocytes [#/volume] in Blood by Automated countOrdered By: Selin Rowe on 58-52-8724UEU (Bld) [#/Vol]6.6 10*3/uLNormal4.1-10.5FRiverview Health InstituteComment on above:Performed By: #### AMM #### [facility] [address] [place] [address] USALymphocytes [#/volume] in Blood by Automated countOrdered By: Selin Rowe on 23-33-6822Kvcblrjxqck (Bld) [#/Vol]1.4 10*3/uLNormal1.00-4.[address] [facility] HospitalComment on above:Performed By: #### AMM #### [place] [address] USALymphocytes/100 leukocytes in Blood by Automated count Ordered By: Selin Rowe on 47-72-5940Ovklkxxgjiu/100 WBC (Bld)21.1 %Normal. [facility] HospitalComment on above:Performed By: #### AMM #### [address]H [Entitic mass] by Automated countOrdered By: Selin Rowe on 12-29-2503JNQ (RBC) [Entitic mass]32.1 iaEhdgyd41.5-35.2FRiverview Health InstituteComment on above:Performed By: #### AMM #### [address] Auto (RBC) [Mass/Vol]Ordered By: Selin Rowe on 89-68-2847JTGA (RBC) [Mass/Vol]34.3 g/dL32.5-35.6FRiverview Health InstituteMCV [Entitic volume] by Automated countOrdered By: Selin Rowe on 33-09-1248OLX (RBC) [Entitic vol]93.6 bVOspdnb25.5-101[facility] HospitalComment on above:Performed By: #### AMM #### [facility] [address] [place] [address] USANeutrophils [#/volume] in Blood by Automated countOrdered By: Selin Rowe on 77-85-9086Kbnebbeldpw (Bld) [#/Vol]4.3 10*3/uLNormal1.8-7.[address] [facility] HospitalComment on above:Performed By: #### AMM #### [place] [address] USANo Panel InformationOrdered By: Maryam Díaz on 73-69-7113Cvpbcmp Glucose CommentGlu2: cleaned [facility] CenterBlood Gas Liter Flow3 L/minMercy Health St. Elizabeth [facility]stown HospitalNucleated erythrocytes [Presence] in Blood by Automated countOrdered By: Selin Rowe on 52-43-8219Tqjvrssvt RBC Auto Ql (Bld)0.0 /100{WBC}0-0.5FRiverview Health InstitutePlatelet mean volume [Entitic volume] in Blood by Automated count Ordered By: Selin Rowe on 21-89-2629Rabeiywk mean volume (Bld) [Entitic vol]7.7 fLNormal6.6-10.1FRiverview Health InstituteComment on above:Performed By: #### AMM #### [facility] [address] [place] [address] USAPlatelets [#/volume] in Blood by Automated countOrdered By: Selin Rowe on 52-92-9924Xalajxovl (Bld) [#/Vol]262 10*3/jTRajcss208-[address] [facility] HospitalComment on above:Performed By: #### AMM #### [facility] [address] [place], [place] [address] USAXR chest 1V portableon 41-77-2337MM chest 1V portable [facility] [address] [place] [address] [place] [address] XRay Report Signed Patient: Leonardo Roach MR#: [id number] : 1985 Acct:[id number] Age/Sex: 39 / M ADM Date: 06/05/24 Loc: Room: [address] [place] [address] Type: ADM IN Attending Dr: Maryam Díaz [...] FINDINGS Impression dictated by: Delano Keen Jr., DCr06/05/2024 3:02 PM Dictation Location: [place] [address] Transcribed By: [facility] 06/05/24 1502 Dictated By: Delano Keen Jr, DO 06/05/24 1459 Signed By: 06/05/24 1502[facility] Physician GroupProvider Letteron 05-11-2024 Provider LetterProvider Letter May 11, [address] [address] : 1985 Dear Leonardo, We have been trying to reach you with no success. It is important that you return our call regarding your referral from Dr. Bosch to see [facility]. Please call the office to schedule a consultation appointment upon receiving this letter. Also, at the time of your call, please provide us with your current information. Thank you for your prompt attention to this matter. Sincerely, [facility] [phone] City HospitalH PYLORI ANTIBODY IGGon 11-26-2022 H. PYLORI IGG ABS0.13 Index ValueNormal0.00-0.79[facility] HospitalComharbor oaks hospital on above:Result Comment: Negative <0.80 Equivocal 0.80 - 0.89 Positive >0.89Performed By: #### VITAD, IRON #### [facility] [address] [place] [address] Dr. Kinjal LandaPATITIS PANEL, ACUTEon 51-28-8678PAdCo ScreenNegativeNormal NegativeWadsworth-Rittman HospitalComment on above:Performed By: #### VITAD, IRON #### [facility] [address] [place] [address] [address] Kinjal Thrasher ABReactiveAbnormalNon ReactiveThe [facility] HospitalComment on above:Performed By: #### VITAD, IRON #### [facility] [address] [place] [address] [address] Kinjal Thrasher hjm87IeiaxvSykSelect Medical OhioHealth Rehabilitation Hospital - DublinComment on above:Performed By: #### VITAD, IRON #### [facility] [address] [place] [address] Dr. Kinjal Thrasher xdb450.004 log10 IU/mLNormalWadsworth-Rittman HospitalComment on above:Performed By: #### VITAD, IRON #### [facility] [address] [address] [address] Kinjal Thrasher RNA (International Units)[id number] IU/mLNormalWadsworth-Rittman HospitalComment on above:Performed By: #### VITAD, IRON #### [facility] [address] [place] [address] Dr. Kinjal Beard Ab, IgMNegativeNormalNegativeWadsworth-Rittman HospitalComharbor oaks hospital on above:Performed By: #### VITAD, IRON #### [facility] [address] [place] [address] Dr. Kinjal Martinez Core Ab, IgMNegativeGambellNegativeWadsworth-Rittman Hospital Comment on above:Performed By: #### VITAD, IRON #### [facility] [address] [place] [address] Dr. Kinjal Quiñones [facility] Countye Final ResultsOhioHealth Comment on above:Performed By: #### VITAD, IRON #### [facility] [address] [place] [address] Dr. Kinjal RuvalcabaInterpretationCommentUniversity Hospitals Samaritan Medical Center on above: Result Comment: Positive HCV antibody screen with the presence of HCV RNA is consistent with active infection.Performed By: #### VITAD, IRON #### [facility] [address] [place] [address] Dr. Kinjal Escobar Information:CommentUniversity Hospitals Samaritan Medical Center on above:Result Comment: The quantitative range of this assay is 15 IU/mL to 100 million IU/mL.Performed By: #### VITAD, IRON #### [facility] [address] [place] [address] Dr. Kinjal Davila 17-55-8742Ryuifnm7.5 uIU/mLNormal2.6-24.9The [facility] Fairmount HospitalComment on above:Performed By: #### INSULIN #### [facility] [address] [place] [address] Dr. Kinjal RuvalcabaTESTOSTERONE, TOTALon 20-61-3704Rzuwvgsvdhjp [Mass/Vol]603 ng/dL Wzryth986-538Qbt [facility] HospitalComment on above:Result Comment: Adult male reference interval is based on a population of healthy nonobese males (BMI <30) between 19 and 39 years old. Trevin et.al. JCEM 2017,102;1669-7143. PMID: 77306925.Performed By: #### VITAD, IRON #### [facility] [address] [place] [address] Dr. Kinjal Ramires AUTO DIFFon 29-17-0996KOSF #0.0 103/ulNormal0.0-0.1The [facility] HospitalComment on above:Performed By: #### CBC #### [facility] [address] [place] [address] Dr. Kinjal RuvalcabaBasophils/100 WBC (Bld)0.4 %Normal0.2-2.0The [facility] Comment on above:Performed By: #### CBC #### [facility] [address] [place] [address] Dr. Kinjal Rodriguez #0.0 103/ulNormal0.0-0.7The [facility] Community HospitalComment on above: Performed By: #### CBC #### [facility] [address] [place] [address] Dr. Kinjal Eastosinophils/100 WBC (Bld)0.1 %Critically low0.9-7.0The [facility] Community HospitalComment on above:Performed By: #### CBC #### [facility] [address] [place] [address] Dr. Kinjal Eastrythrocyte distribution width (RBC) [Ratio]11.9 %Osvsrj87.0-15.0 The [facility] HospitalComment on above:Performed By: #### CBC #### [facility] [address] [place] [address] Dr. Kinjal RuvalcabaHematocrit (Bld) [Volume fraction]41.3 %Critically low42.0-54.0 The [facility] HospitalComment on above:Performed By: #### CBC #### [facility] [address] [place] [address] Dr. Kinjal Hainesoglobin (Bld) [Mass/Vol]14.6 g/dHLdyzme70.0-18.0The [facility] HospitalComment on above:Performed By: #### CBC #### [facility] [address] [place] [address] Dr. Kinjal Harmon #0.02 10e3/ulNormal0.00-0.03The [facility] HospitalComment on above:Performed By: #### CBC #### [facility] [address] [place] [address] Dr. Kinjal Harmon %0.3 %Normal0.0-0.5The [facility] HospitalComment on above: Performed By: #### CBC #### [facility] [address] [place] [address] Dr. Kinjal Quiroz #1.2 103/ulNormal1.2-3.8The [facility] HospitalComment on above:Performed By: #### CBC #### [facility] [address] [place] [address] Dr. Kinjal Tejedamphocytes/100 WBC (Bld)15.7 %Critically low20.5-60.0The [facility] HospitalComment on above:Performed By: #### CBC #### [facility] [address] [place] [address] Dr. Kinjal HerringUAL DIFF REQNONormalThe [facility] HospitalComment on above: Performed By: #### CBC #### [facility] [address] [place] [address] Dr. Kinjal Hernandez (RBC) [Entitic mass]31.0 kcBwmpud31.9-34.0The [facility] HospitalComment on above:Performed By: #### CBC #### [facility] [address] [place] [address] Dr. Kinjal Hernandez (RBC) [Mass/Vol]35.4 g/dLCritically high29.9-35.2The [facility] HospitalComment on above:Performed By: #### CBC #### [facility] [address] [place] [address] Dr. Kinjal HernandezV (RBC) [Entitic vol]87.7 nSIvtjmv41.0-94.0The [facility] Community HospitalComment on above:Performed By: #### CBC #### [facility] [address] [place] [address] Dr. Kinjal Dhillon #0.4 103/ulNormal0.3-0.8The [facility] HospitalComment on above:Performed By: #### CBC #### [facility] [address] [place] [address] Dr. Kinjal Ireneocytes/100 WBC (Bld)5.2 %Normal1.7-12.0The [facility] Comment on above:Performed By: #### CBC #### [facility] [address] [place] [address] Dr. Kinjal Blevins #6.0 103/ulNormal1.4-6.5The [facility] HospitalComment on above:Performed By: #### CBC #### [facility] [address] [place] [address] Dr. Kinjal Quirozutrophils/100 WBC (Bld)78.3 %Critically high43.0-75.0The [facility] HospitalComment on above:Performed By: #### CBC #### [facility] [address] [place] [address] Dr. Kinjal Patellet mean volume (Bld) [Entitic vol]10.7 fLNormal9.5-13.5The [facility] HospitalComment on above:Performed By: #### CBC #### [facility] [address] [place] [address] Dr. Kinjal RuvalcabaPLT243 103/ttXpgrac146-090Dgv [facility] HospitalComment on above: Performed By: #### CBC #### [facility] [address] [address] [address] Kinjal RuvalcabaRBC4.71 106/ulNormal4.70-6.10The [facility] HospitalComment on above:Performed By: #### CBC #### [facility] [address] [place] [address] Dr. Kinjal RuvalcabaWBC7.7 103/ulNormal4.0-11.0The [facility] HospitalComment on above: Performed By: #### CBC #### [facility] [address] [place] [address] Dr. Kinjal RuvalcabaCULTURE URINEon [id number] URINECulture Observations: NO GROWTH.NormalThe [facility] Community HospitalComment on above:Performed By: #### URCX #### [facility] [address] [place] [address] Dr. Kinjal RuvalcabaFREE THYROXINE INDEX T7on 58-92-7738MQE9.92Enjbnr5.30-4.50The [facility] HospitalComment on above:Performed By: #### LIPID, CMP, T7, TSH #### [facility] [address] [place] [address] Dr. Kinjal RuvalcabaT3U31.0 %Critically low33.0-40.0The [facility] on above:Performed By: #### LIPID, CMP, T7, TSH #### [facility] [address] [place] [address] Dr. Kinjal RuvalcabaT4 [Mass/Vol]12.10 ug/dLNormal4.50-12.10The [facility] Comment on above:Performed By: #### LIPID, CMP, T7, TSH #### [facility] [address] [place] [address] Dr. Kinjal RuvalcabaGLYCOHEMOGLOBIN A1Con [id number] RECOMMENDATIONSEE BELOWNormal The [facility] Community HospitalComment on above:Result Comment: ADA RECOMMENDED LIMIT 4.0 - 6.0 ADA THERAPEUTIC TARGET < 7.0 ACTION SUGGESTED > 7.0Performed By: #### VITAD, IRON #### [facility] [address] [place] [address] Dr. Kinjal RuvalcabaGlucose [Mass/Vol]100 mg/dLOhioHealthComment on above:Performed By: #### VITDUONG, IRON #### [facility] [address] [address] [address] Kinjal RuvalcabaHbA1c (Bld) [Mass fraction]5.1 %Normal4.5-6.2The [facility] HospitalComment on above:Performed By: #### VITAD, IRON #### [facility] [address] [place] [address] Dr. Kinjal Wong [id number] [Mass/Vol]110.0 ug/dCJyiluk68.0-175.0The [facility] HospitalComment on above:Performed By: #### VITDUONG IRON #### [facility] [address] [place] [address] Dr. Kinjal LalaID PROFILEon [id number]-HDL RATIO NORMSEE BELOWOhioHealthComment on above:Result Comment: 3.3 - 4.4 LOW RISK 4.4 - 7.1 AVERAGE RISK 7.1 - 11.0 MODERATE RISK >11.0 HIGH RISKPerformed By: #### LIPID, CMP, T7, TSH #### [facility] [address] [place] [address] Dr. Kinjal Underwoodesterol [Mass/Vol]185 mg/dLNormal<=200The [facility] Comment on above:Performed By: #### LIPID, CMP, T7, TSH #### [facility] [address] [place] [address] Dr. Kinjal Underwoodesterol in HDL [Mass/Vol]63 mg/dLCritically wwrq40-47Sim [facility] on above:Performed By: #### LIPID, CMP, T7, TSH #### [facility] [address] [place] [address] Dr. Kinjal Underwoodesterol in LDL [Mass/Vol]107.6 mg/dLOhioHealthComharbor oaks hospital on above:Performed By: #### LIPID, CMP, T7, TSH #### [facility] [address] [address] [address] Kinjal RuvalcabaCholesterol.total/Cholesterol in HDL [Mass ratio]2.9 {ratio} NormalThe [facility] Community HospitalComment on above:Performed By: #### LIPID, CMP, T7, TSH #### [facility] [address] [address] [address] Kinjal aPrker NORMAL> or = 60 mg/dl - LOW CARDIOVASCULAR RISK <40 mg/dl - HIGH CARDIOVASCULAR RISKOhioHealthComment on above:Performed By: #### LIPID, CMP, T7, TSH #### [facility] [address] [address] [address] Kinjal RuvalcabaLDL CALC NORMALSEE BELOWOhioHealthComment on above:Result Comment: <100 mg/dl OPTIMAL 100 - 129 mg/dl NEAR OR ABOVE OPTIMAL 130 - 159 mg/dl BORDERLINE HIGH 160 - 189 mg/dl HIGH >190 mg/dl VERY HIGH Performed By: #### LIPID, CMP, T7, TSH #### [facility] [address] [address] [address] Kinjal RuvalcabaTriglyceride [Mass/Vol]72 mg/dLNormal<=150The [facility] Comment on above:Performed By: #### LIPID, CMP, T7, TSH #### [facility] [address] [address] [address] Kinjal RuvalcabaVLDL CALC14.4 mg/dLNoSelect Medical OhioHealth Rehabilitation Hospital - DublinComment on above: Performed By: #### LIPID, CMP, T7, TSH #### [facility] [address] [address] [address] Kinjal RuvalcabaMICROALBUMIN, RAND URon [id number]<1.3Normal<=30.0The [facility] HospitalComment on above:Performed By: #### MALBR #### [facility] [address] [address] [address] Kinjal RuvalcabaPROF 14(COMP METB)on 81-13-3794Wmdjthx [Mass/Vol]4.4 g/dLNormal 3.4-5.0The [facility] HospitalComment on above:Performed By: #### LIPID, CMP, T7, TSH #### [facility] [address] [address] [address] Kinjal RuvalcabaAlbumin/Globulin [Mass ratio]1.4 {ratio}NormalThe [facility] Community HospitalComment on above:Performed By: #### LIPID, CMP, T7, TSH #### [facility] [address] [place] [address] Dr. Kinjal Hoff [Catalytic activity/Vol]67 U/QXamlnf27-300Vyz [facility] HospitalComment on above:Performed By: #### LIPID, CMP, T7, TSH #### [facility] [address] [place] [address] Dr. Kinjal Thomas [Catalytic activity/Vol]69 U/LCritically kjhg53-13Ves [facility] HospitalComment on above:Performed By: #### LIPID, CMP, T7, TSH #### [facility] [address] [place] [address] Dr. Kinjal Hercules gap [Moles/Vol]15.3 mmol/LNormalThe [facility] Comment on above:Performed By: #### LIPID, CMP, T7, TSH #### [facility] [address] [place] [address] Dr. iKnjal RuvalcabaAST [Catalytic activity/Vol]29 U/OKwyujt40-77Aid [facility] HospitalComment on above:Performed By: #### LIPID, CMP, T7, TSH #### [facility] [address] [place] [address] Dr. Kinjal RuvalcabaBilirubin [Mass/Vol]0.8 mg/dLNormal0.2-1.0The [facility] Comment on above:Performed By: #### LIPID, CMP, T7, TSH #### [facility] [address] [place] [address] Dr. Kinjal RuvalcabaCalcium [Mass/Vol]9.1 mg/dLNormal8.5-10.1[facility] Comment on above:Performed By: #### LIPID, CMP, T7, TSH #### [facility] [address] [address] [address] Kinjal RuvalcabaChloride [Moles/Vol]102 mmol/REadsvh19-481Ogc [facility] Comment on above:Performed By: #### LIPID, CMP, T7, TSH #### [facility] [address] [address] [address] Kinjal RuvalcabaCO2 [Moles/Vol]25.5 mmol/YQmtwyq86.0-32.0The [facility] Comment on above:Performed By: #### LIPID, CMP, T7, TSH #### [facility] [address] [address] [address] Kinjal RuvalcabaCreatinine [Mass/Vol]1.41 mg/dLCritically high0.70-1.30The [facility] HospitalComment on above:Performed By: #### LIPID, CMP, T7, TSH #### [facility] [address] [place] [address] Dr. Kinjal EastGFR-AF NIGERIEN>60Normal>=60The [facility] HospitalComment on above:Performed By: #### LIPID, CMP, T7, TSH #### [facility] [address] [place] [address] Dr. Kinjal EastGFR-NON AF WJTOGBID75 mL/min/1.20o8Sxjbjjwhfp low>=60The [facility] HospitalComment on above:Performed By: #### LIPID, CMP, T7, TSH #### [facility] [address] [address] [address] Kinjal RuvalcabaGlobulin (S) [Mass/Vol]3.1 g/dLNormalThe [facility] HospitalComment on above:Performed By: #### LIPID, CMP, T7, TSH #### [facility] [address] [address] [address] Kinjal RuvalcabaGlucose [Mass/Vol]115 mg/dLCritically qruw32-146Txr [facility] HospitalComment on above:Performed By: #### LIPID, CMP, T7, TSH #### [facility] [address] [address] [address] Kinjal RuvalcabaPotassium [Moles/Vol]3.8 mmol/LNormal3.5-5.1[facility] Comment on above:Performed By: #### LIPID, CMP, T7, TSH #### [facility] [address] [address] [address] Kinjal RuvalcabaProtein [Mass/Vol]7.5 g/dLNormal6.4-8.2[facility] Comment on above:Performed By: #### LIPID, CMP, T7, TSH #### [facility] [address] [place] [address] Dr. Kinjal RuvalcabaSodium [Moles/Vol]139 mmol/POwfnsc110-750IwdWadsworth-Rittman Hospital Comment on above:Performed By: #### LIPID, CMP, T7, TSH #### [facility] [address] [place] [address] Dr. Kinjal Champion nitrogen [Mass/Vol]13.0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 fraction]44.0 %Normal 40.7-50.3[facility] Porter[facility] Developmental CenterComment on above:Performed By: #### CDP, CP, LIPR, TSHX, TREP, HIVCMB, HSVPR #### [facility] [address] [place] [address] Firmware Engineer: Satya Valdez MD #### AHCGEN #### [facility] [address] [place] [address] Firmware Engineer: Remi Harman MDHemoglobin (Bld) [Mass/Vol]14.6 g/dLNormal 13.0-17.0L[facility] Tri[facility] Medical CenterComment on above:Performed By: #### CDP, CP, LIPR, TSHX, TREP, HIVCMB, HSVPR #### [address] [address] Firmware Engineer: Satya Valdez MD #### AHCGEN #### [address] [phone] Firmware Engineer: MESSI MeléndezCH (RBC) [Entitic mass]31.1 ytFtdjyc30.2-33.5 [facility] Medical CenterComment on above:Performed By: #### CDP, CP, LIPR, TSHX, TREP, HIVCMB, HSVPR #### [address] [address] Firmware Engineer: Satya Valdez MD #### AHCGEN #### [facility] [address] [place] [address] [phone] Firmware Engineer: MESSI MeléndezCHC (RBC) [Mass/Vol]33.2 g/mUXmbxlh17.4-34.8 [facility] CenterComment on above:Performed By: #### CDP, CP, LIPR, TSHX, TREP, HIVCMB, HSVPR #### [address] [phone] Firmware Engineer: Satya Valdez MD #### AHCGEN #### [facility] [address] [place] [address] Firmware Engineer: MESSI MeléndezCV (RBC) [Entitic vol]93.6 aJVhsnsb46.6-102.9 [facility] CenterComment on above:Performed By: #### CDP, CP, LIPR, TSHX, TREP, HIVCMB, HSVPR #### [address] [address] Firmware Engineer: Satya Valdez MD #### CGEN #### [facility] [address] [place], [place] [phone] Firmware Engineer: Remi Harman MDNRBC Automated0.0 per 100 WBCNormal0.0[facility] Medical CenterComment on above:Performed By: #### CDP, CP, LIPR, TSHX, TREP, HIVCMB, HSVPR #### [address] [address] Firmware Engineer: Satya Valdez MD #### DREAGEN #### [facility] [address] [place], [place] [phone] Firmware Engineer: Robbie Meléndez mean volume (Bld) [Entitic vol]10.3 fL Normal8.1-13.5[facility]point Medical CenterComment on above:Performed By: #### CDP, CP, LIPR, TSHX, TREP, HIVCMB, HSVPR #### [address] [address] Firmware Engineer: Satya Valdez MD #### CLEVELANDCGEN #### [facility] [address] [place], [place] [phone] Firmware Engineer: Ariana Meléndez (Bld) [#/Vol]293 10*3/yJNgeqff223-949 [facility] CenterComment on above:Performed By: #### CDP, CP, LIPR, TSHX, TREP, HIVCMB, HSVPR #### [facility] [address] [place] [address] Firmware Engineer: Satya Valdez MD #### AHCGEN #### [facility] [address] [place] [address] Firmware Engineer: Remi Harman [facility] (d) [#/Vol]4.70 10*6/uLNormal4.21-5.77L[facility] Medical CenterComment on above:Performed By: #### CDP, CP, LIPR, TSHX, TREP, HIVCMB, HSVPR #### [address] [phone] Firmware Engineer: Satya Valdez MD #### AHCGEN #### [facility] [address] [place] [address] Firmware Engineer: Remi Harman MDNORTH [facility] ([facility]) [#/Vol]6.1 10*3/uLNormal3.5-11.3MCity of Hope National Medical CenterComment on above:Performed By: #### CDP, CP, LIPR, TSHX, TREP, HIVCMB, HSVPR #### [address] [phone] Firmware Engineer: Satya Valdez MD #### AHCGEN #### [facility] [address] [place], [place] [phone] Firmware Engineer: Remi Harman [facility] Profon 05-18-2020(cont.)Normal [facility] Medical CenterComment on above:Result Comment: Average GFR for 30-39 years old: 107 mL/min/1.73sq m Chronic Kidney Disease: <60 mL/min/1.73sq m Kidney failure: <15 mL/min/1.73sq m eGFR calculated using average adult body mass. Additional eGFR calculator available at: http://[email or web address]/multiple_crcl_[email or web address] By: #### CDP, CP, LIPR, TSHX, TREP, HIVCMB, HSVPR #### [address] [address] Firmware Engineer: Satya Valdez MD #### DREAGEN #### [facility] [address] [place], [place] [phone] Firmware Engineer: Remi Harman MDAlbumin [Mass/Vol]4.4 g/dLNormal3.5-5.2[facility] Developmental CenterComment on above:Performed By: #### CDP, CP, LIPR, TSHX, TREP, HIVCMB, HSVPR #### [address] [address] Firmware Engineer: Satya Valdez MD #### NEGIN #### [address] [phone] Firmware Engineer: Remi Harman MDAlbumin/Globulin [Mass ratio]1.9 {ratio}Normal 1.0-2.5[facility] Medical CenterComment on above:Performed By: #### CDP, CP, LIPR, TSHX, TREP, HIVCMB, HSVPR #### [address] [address] Firmware Engineer: Satya Valdez MD #### CLEVELANDCGEN #### [facility] [address] [place] [address] [phone] Firmware Engineer: Pako Meléndezkaline Phos63 U/TNqtgwu93-861TmpyqLakehealth Tripoint Medical CenterComment on above:Performed By: #### CDP, CP, LIPR, TSHX, TREP, HIVCMB, HSVPR #### [address] [address] Firmware Engineer: Satya Valdez MD #### CLEVELANDCGEN #### [address] [address] Firmware Engineer: Remi Harman MDALT [Catalytic activity/Vol]50 U/LHigh5-41[facility] Medical CenterComment on above:Performed By: #### CDP, CP, LIPR, TSHX, TREP, HIVCMB, HSVPR #### [facility] [address] [place] [address] Firmware Engineer: Satya Valdez MD #### AHCGEN #### [facility] [address] [place] [address] Firmware Engineer: Rimma Meléndez gap [Moles/Vol]15 mmol/LNormal9-17[facility] Medical CenterComment on above:Performed By: #### CDP, CP, LIPR, TSHX, TREP, HIVCMB, HSVPR #### [address] [address] Firmware Engineer: Satya Valdez MD #### AHCGEN #### [facility] [address] [place], [place] [phone] Firmware Engineer: Remi Harman MDAST [Catalytic activity/Vol]37 U/LNormal<40[facility] Medical CenterComment on above:Performed By: #### CDP, CP, LIPR, TSHX, TREP, HIVCMB, HSVPR #### [address] [address] Firmware Engineer: Satya Valdez MD #### AHCGEN #### [facility] [address] [place] [address] Firmware Engineer: Remi Harman MDBilirubin Ql (U)0.35 mg/dLNormal0.3-1.2MCity of Hope National Medical CenterComment on above:Performed By: #### CDP, CP, LIPR, TSHX, TREP, HIVCMB, HSVPR #### [address] [address] Firmware Engineer: Satya Valdez MD #### AHCGEN #### [facility] [address] [place] [address] Firmware Engineer: RENNY Meléndezalcium [Mass/Vol]9.6 mg/dLNormal8.6-10.4[facility] Medical CenterComment on above:Performed By: #### CDP, CP, LIPR, TSHX, TREP, HIVCMB, HSVPR #### [facility] [address] [place] [address] Firmware Engineer: Satya Valdez MD #### CLEVELANDCGEN #### [facility] [address] [place], [place] [phone] Firmware Engineer: RENNY Meléndezhloride [Moles/Vol]101 mmol/UOotlfw50-267BzghaLakehealth Tripoint Medical CenterComment on above:Performed By: #### CDP, CP, LIPR, TSHX, TREP, HIVCMB, HSVPR #### [facility] [address] [place] [address] Firmware Engineer: Satya Valdez MD #### AHCGEN #### [facility] [address] [place], [place] [phone] Firmware Engineer: Remi Harman MDCO2 [Moles/Vol]24 mmol/SOcpbel85-18WedctLakehealth Tripoint Medical CenterComment on above:Performed By: #### CDP, CP, LIPR, TSHX, TREP, HIVCMB, HSVPR #### [facility] [address] [place] [address] Firmware Engineer: Satya Valdez MD #### AHCGEN #### [facility] [address] [place] [address] Firmware Engineer: RENNY Meléndezreatinine [Mass/Vol]1.26 mg/dLHigh0.70-1.20[facility] Medical CenterComment on above:Performed By: #### CDP, CP, LIPR, TSHX, TREP, HIVCMB, HSVPR #### [facility] [address] [place] [address] Firmware Engineer: Satya Valdez MD #### AHCGEN #### [facility] [address] [place] [address] Firmware Engineer: Remi Harman MDGFR, Amer>60Normal>60[facility] Medical CenterComment on above:Performed By: #### CDP, CP, LIPR, TSHX, TREP, HIVCMB, HSVPR #### [place] [address] Firmware Engineer: Satya Valdez MD #### AHCGEN #### [facility] [address] Firmware Engineer: Remi Harman MDGFR,non Amer>60Normal>60[facility] Medical CenterComment on above:Performed By: #### CDP, CP, LIPR, TSHX, TREP, HIVCMB, HSVPR #### [address] [address] Firmware Engineer: Satya Valdez MD #### AHCGEN #### [facility] [address] [place] [address] [phone] Firmware Engineer: Remi Harman MDGlucose [Mass/Vol]85 mg/tAAoegug77-84SjxvvCity of Hope National Medical CenterComment on above:Performed By: #### CDP, CP, LIPR, TSHX, TREP, HIVCMB, HSVPR #### [address] [address] Firmware Engineer: Satya Valdez MD #### AHCGEN #### [facility] [address] [place] [phone] Firmware Engineer: MATTIE Meléndezotassium [Moles/Vol]4.2 mmol/LNormal3.7-5.3MCity of Hope National Medical CenterComment on above:Performed By: #### CDP, CP, LIPR, TSHX, TREP, HIVCMB, HSVPR #### [facility] [address] [place] [address] Firmware Engineer: Satya Valdez MD #### AHCGEN #### [facility] [address] [place] [address] Firmware Engineer: Remi Harman MDProtein [Mass/Vol]6.7 g/dLNormal6.4-8.3MCity of Hope National Medical CenterComment on above:Performed By: #### CDP, CP, LIPR, TSHX, TREP, HIVCMB, HSVPR #### [place] [address] Firmware Engineer: Satya Valdez MD #### CLEVELANDCGEN #### [facility] [address] [place] [phone] Firmware Engineer: BRYNN Meléndezodium [Moles/Vol]140 mmol/LEoewhh412-348VqptsLakehealth Tripoint Medical CenterComment on above:Performed By: #### CDP, CP, LIPR, TSHX, TREP, HIVCMB, HSVPR #### [address] [address] Firmware Engineer: Satya Valdez MD #### AHCGEN #### [facility] [address] [place] [phone] Firmware Engineer: Remi Harman MDUrea nitrogen [Mass/Vol]16 mg/dLNormal6-20[facility] Medical CenterComment on above:Performed By: #### CDP, CP, LIPR, TSHX, TREP, HIVCMB, HSVPR #### [facility] [address] [place] [address] Firmware Engineer: Satya Valdez MD #### AHCGEN #### [facility] [address] [place] [address] Firmware Engineer: Remi Harman MDHIV Ag/Abon 78-63-5249FHE Ag/AbNONREACTIVENormal St. Anthony's HospitalComment on above:Result Comment: No laboratory evidence of HIV infection. If acute HIV infection is suspected, consider testing for HIV-1 RNA.Performed By: #### CDP, CP, LIPR, TSHX, TREP, HIVCMB, HSVPR #### [facility] [address] [place] [address] Firmware Engineer: Satya Valdez MD #### AHCGEN #### [facility] [address] [place] [address] Firmware Engineer: Remi Harman MDHep A Ab,IgMon 61-59-5504Jlm A Ab,IgMNONREACTIVE (NR)[facility] CenterComment on above:Performed By: #### CDP, CP, LIPR, TSHX, TREP, HIVCMB, HSVPR #### [address] [address] Firmware Engineer: Satya Valdez MD #### AHCGEN #### [facility] [address] [place], [place] [phone] Firmware Engineer: Remi Harman MDNote: Responsible Observer: CEEV AUTOFILE (0232) Hep B Core Abon 36-41-1763Tvi B Core AbNONREACTIVE(NR)[facility] CenterComment on above:Performed By: #### CDP, CP, LIPR, TSHX, TREP, HIVCMB, HSVPR #### [facility] [address] [place] [address] Firmware Engineer: Satya Valdez MD #### AHCGEN #### [facility] [address] [place] [address] Firmware Engineer: Remi Harman MDNote: Responsible Observer: CEEV AUTOFILE (3003) Hep B Surf Abon 45-82-8426Lzq B Surf Ab<3.50Normal<10[facility] Developmental CenterComment on above:Result Comment: REFERENCE RANGE: <10.0 NON-REACTIVE/NOT IMMUNE >=10.0 REACTIVE/IMMUNEPerformed By: #### CDP, CP, LIPR, TSHX, TREP, HIVCMB, HSVPR #### [facility] [address] [place] [address] Firmware Engineer: Satya Valdez MD #### AHCGEN #### [facility] [address] [place] [address] Firmware Engineer: Remi Harman MDHep B Surf Agon 35-63-0503Bnq B Surf Ag NONREACTIVE(NR)[facility] CenterComment on above:Performed By: #### CDP, CP, LIPR, TSHX, TREP, HIVCMB, HSVPR #### [facility] [address] [place] [address] Firmware Engineer: Satya Valdez MD #### AHCGEN #### [facility] [address] [place] [address] Firmware Engineer: Remi Harman MDNote: Responsible Observer: CEEV AUTOFILE (3003) Lipid Prof, Fastingon 68-91-5731Obzfzsysaak [Mass/Vol]191 mg/dLNormal<200Mer[facility] Developmental CenterComment on above:Result Comment: Cholesterol Guidelines: <200 Desirable 200-240 Borderline >240 UndesirablePerformed By: #### CDP, CP, LIPR, TSHX, TREP, HIVCMB, HSVPR #### [facility] [address] [place] [phone] Firmware Engineer: Satya Valdez MD #### AHCGEN #### [facility] [address], [place] [id number] Firmware Engineer: RENNY Meléndezholesterol in HDL [Mass/Vol]55 mg/dLNormal>40 [facility] CenterComment on above:Result Comment: HDL Guidelines: <40 Undesirable 40-59 Borderline >59 DesirablePerformed By: #### CDP, CP, LIPR, TSHX, TREP, HIVCMB, HSVPR #### [facility] [address] [place] [phone] Firmware Engineer: Satya Valdez MD #### AHCGEN #### [facility] [address] [place] [address] [phone] Firmware Engineer: RENNY Meléndezholesterol in LDL [Mass/Vol]79 mg/dLNormal0-130 [facility] CenterComment on above:Result Comment: LDL Guidelines: <100 Desirable 100-129 Near to/above Desirable 130-159 Borderline >159 Undesirable Direct (measured) LDL and calculated LDL are not interchangeable tests.Performed By: #### CDP, CP, LIPR, TSHX, TREP, HIVCMB, HSVPR #### [facility] [employer] [address] [place] [phone] Firmware Engineer: Satya Valdez MD #### AHCGEN #### [facility] [address] [place] [address] [phone] Firmware Engineer: Beverly Meléndezstflorentino.total/Cholesterol in HDL [Mass ratio] 3.5 {ratio}Normal<5MerVencor HospitalComment on above:Performed By: #### CDP, CP, LIPR, TSHX, TREP, HIVCMB, HSVPR #### [facility] [employer] [address] [place] [address] Firmware Engineer: Satya Valdez MD #### AHCGEN #### [facility] [address] [place] [address] [phone] Firmware Engineer: Remi Harman MDTriglyceride,Rwpdoua324 mg/dLHigh<150[facility] Medical CenterComment on above:Result Comment: Triglyceride Guidelines: <150 Desirable 150-199 Borderline 200-499 High >499 Very high Based on AHA Guidelines for fasting triglyceride, May 2012.Performed By: #### CDP, CP, LIPR, TSHX, TREP, HIVCMB, HSVPR #### [facility] [address] [place] [address] Firmware Engineer: Satya Valdez MD #### AHCGEN #### [facility] [address] [place] [address] Firmware Engineer: Remi Harman MDLiver Fibrosis Panelon 35-88-9967Mtucmudh Cnt,Hhbho334AqqxtLakehealth Tripoint Medical CenterComment on above:Performed By: #### CDP, CP, LIPR, TSHX, TREP, HIVCMB, HSVPR #### [address] [address] Firmware Engineer: Satya Valdez MD #### AHCGEN #### [facility] [address] [place] [id number] Firmware Engineer: Remi Harman MDNote: Responsible Observer: FELIPA CORRAL (129) PSA, Screeningon [id number] Spec. Ag0.49 ug/L(<4.1)[facility] CenterComment on above:Result Comment: The Martina ECLIA assay is used. Results obtained with different assay methods cannot be used interchangeably.Performed By: #### CDP, CP, LIPR, TSHX, TREP, HIVCMB, HSVPR #### [facility] [address] [place] [phone] Firmware Engineer: Satya Valdez MD #### AHCGEN #### [facility] [address] [place] [address] Firmware Engineer: Remi Harman MDNote: The Martina ECLIA assay is used. Results obtained with different assay methodscannot be used interchangeably.Responsible Observer: MARIEV AUTOFILE (3003)TSH w/reflex to FT4on [id number] Qn0.93 m[IU]/L Normal0.30-5.00[facility] CenterComment on above:Performed By: #### CDP, CP, LIPR, TSHX, TREP, HIVCMB, HSVPR #### [employer] [address] [place] [address] [phone] Firmware Engineer: Satya Valdez MD #### [place]CG[place] #### [facility] [address] [place] [address] Firmware Engineer: RENNY MeléndezBCon 15-71-9326ZDS (Bld) [#/Vol]0.0 10*3/uL0.0 per 100 WBCOhioHealth Berger Hospital KYCardimargaret mary community hospital 37-99-7585Snibpadmqca [Mass/Vol]191 mg/dL(<200)[facility] Work Phone: Comment on above:Note: Cholesterol Guidelines:<200 Ckwqbnlan730-604 Borderline>240 UndesirableResponsible Observer: EMETERIO PENALOZA (8284)Comp Metabolic Profon 28-05-9203VPK/CRE RatioNOT REPORTED(05-08)[facility] CenterComment on above:Performed By: #### CDP, CP, LIPR, TSHX, TREP, HIVCMB, HSVPR #### [facility] [address] [place] [address] [phone] Firmware Engineer: Satya Valdez MD #### AHCGEN #### [facility] [address] [place] [address] Firmware Engineer: BRYNN Meléndeztaging:NOT REPORTEDLakehealth Tripoint Medical CenterComment on above:Performed By: #### CDP, CP, LIPR, TSHX, TREP, HIVCMB, HSVPR #### [employer] [address] [place] [address] [phone] Firmware Engineer: Satya Valdez MD #### [place]CGEN #### [facility] [address] [place] [address] Firmware Engineer: Remi Harman MDHCV Genotype, PCRon [id number] Viral LoadNOT St. Charles Medical Center – MadrasComment on above:Performed By: #### CDP, CP, LIPR, TSHX, TREP, HIVCMB, HSVPR #### [facility] [address] [place] [address] Firmware Engineer: Satya Valdez MD #### AHCGEN #### [facility] [address] [place] [address] Firmware Engineer: Remi Harman MDHematologyon 70-81-7820Ijhhnqcyzv (Bld) [Volume fraction]44.0 %(40.7-50.3)[place], KYComharbor oaks hospital on above:Note: Responsible Observer: XNV AUTOFILE (3018)Hemoglobin (Bld) [Mass/Vol]14.6 g/dL(13.0-17.0) [place], KYComment on above:Note: Responsible Observer: XNV AUTOFILE (3018)MCH (RBC) [Entitic mass]31.1 pg(25.2-33.5)[place], KYComharbor oaks hospital on above:Note: Responsible Observer: XNV AUTOFILE (3018)MCV (RBC) [Entitic vol]93.6 fL(82.6-102.9)[place], KYComment on above:Note: Responsible Observer: XNV AUTOFILE (3018)Platelets (Bld) [#/Vol]293 10*3/uL(138-453)[place], KYComment on above:Note: Responsible Observer: XNV AUTOFILE (3018)RBC (Bld) [#/Vol]4.70 10*6/uL(4.21-5.77)[place], KYComharbor oaks hospital on above:Note: Responsible Observer: XNV AUTOFILE (3018)WBC (Bld) [#/Vol]6.1 10*3/uL(3.5-11.3) [place], KYComment on above:Note: Responsible Observer: XNV AUTOFILE (3017)INR Coag (PPP) [Relative time]1.0 {INR}[place], KYComment on above: Therapeutic Range: Moderate Anticoagulant Intensity: INR = 2.0-3.0 High Anticoagulant Intensity: INR = 2.5-3.5 Note: Therapeutic Range:Moderate Anticoagulant Intensity:INR = 2.0-3.0High Anticoagulant Intensity:INR = 2.5-3.5Responsible Observer: AUTOFILE BCS (2005)PT Coag (PPP) [Time]10.2 s(9.0-12.0)[place], KYComment on above:Note: Responsible Observer: AUTOFILE BCS (2005)WBC (Bld) [#/Vol]0.0 per_100_WBC(0.0) [facility] Work Phone: Comment on above:Note: Responsible Observer: XNV AUTOFILE (3017)Hepatitis A Antibody, IgMon 80-89-6054NBF IgM IA Qn (S) NONREACTIVENONREACTIVEAshtabula General Hospital, DCHepatitis B Core Antibody, Totalon 91-90-7303Tnj B Core Total AbNONREACTIVENONREACTIVEAshtabula General Hospital, DCHepatitis B Surface Antibodyon 94-71-5958PFR surface Ab (S) [Titer]<3.50<10 mIU/mLHansville, KYComment on above: REFERENCE RANGE: <10.0 NON-REACTIVE/NOT IMMUNE >=10.0 REACTIVE/IMMUNE Hepatitis B Surface Antigenon 70-96-5703Ccpfakfgr B Surface AgNONREACTIVE NONREACTIVEAshtabula General Hospital, DCLipid Prof, Fastingon 63-87-4895Tzlqscjxbcw in VLDL [Mass/Vol]NOT REPORTEDNormal1-30[facility] CenterComment on above:Performed By: #### CDP, CP, LIPR, TSHX, TREP, HIVCMB, HSVPR #### [facility] [place] [address] Firmware Engineer: Satya Valdez MD #### AHCGEN #### [facility] [address] [place] [address] Firmware Engineer: Mayra Meléndezbodeny Panelkarla 32-74-5781Lgmldih [Mass/Vol]4.4 g/dL(3.5-5.2)[facility] Work Phone: Comment on above:Note: Responsible Observer: EMETERIO PENALOZA (114)ALT [Catalytic activity/Vol]50 U/LHigh(5-41)[facility] Work Phone: Comment on above:Note: Responsible Observer: EMETERIO PENALOZA (626)Anion gap [Moles/Vol]15 mmol/L(9-17)[facility] Work Phone: Comment on above:Note: Responsible Observer: EMETERIO PENALOZA (514)AST [Catalytic activity/Vol]37 U/L(<40)[facility] Work Phone: Comment on above:Note: Responsible Observer: EMETERIO PENALOZA (516)Bilirubin [Mass/Vol]0.35 mg/dL(0.3-1.2)[facility] Work Phone: Comment on above:Note: Responsible Observer: EMETERIO PENALOZA (247)Calcium [Mass/Vol]9.6 mg/dL(8.6-10.4)[facility] Work Phone: Comment on above:Note: Responsible Observer: EMETERIO PENALOZA (158)Chloride [Moles/Vol]101 mmol/L(98-107)[facility] Work Phone: Comment on above:Note: Responsible Observer: EMETERIO PENALOZA (014)CO2 [Moles/Vol]24 mmol/L(20-31)[facility] Work Phone: Comment on above:Note: Responsible Observer: EMETERIO PENALOZA (003)Creatinine [Mass/Vol]1.26 mg/dLHigh(0.70-1.20)[facility] Work Phone: Comment on above:Note: Responsible Observer: EMETERIO PENALOZA (6167)Glucose [Mass/Vol]85 mg/dL(70-99)[facility] Work Phone: Comment on above:Note: Responsible Observer: EMETERIO PENALOZA (5175)Potassium [Moles/Vol]4.2 mmol/L(3.7-5.3)[facility] Work Phone: Comment on above:Note: Responsible Observer: EMETERIO PENALOZA (8482)Protein [Mass/Vol]6.7 g/dL(6.4-8.3)[facility] Work Phone: Comment on above:Note: Responsible Observer: EMETERIO PENALOZA (9138)Sodium [Moles/Vol]140 mmol/L(135-144)[facility] Work Phone: Comment on above:Note: Responsible Observer: EMETERIO PENALOZA (4647)Urea nitrogen [Mass/Vol]16 mg/dL(6-20)[facility] Work Phone: Comment on above:Note: Responsible Observer: EMETERIO PENALOZA (7631)Urea nitrogen [Mass/Vol]17 mg/dL(7-20)[facility] Work Phone: Comment on above:Note: Responsible Observer: [facility] (0603)Otheron 05-60-1487DQN Ag/AbNONREACTIVE(NR)410 LabsComment on above:No laboratory evidence of HIV infection. If acute HIV infection is suspected, consider testing for HIV-1 RNA. Note: No laboratory evidence of HIV infection. If acute HIV infection is suspected,consider testingfor HIV-1 RNA.Responsible Observer: BURT SCHMIDT (6832)Erythrocyte distribution width (RBC) [Ratio]12.8 %(11.8-14.4)410 LabsComment on above:Note: Responsible Observer: XNV AUTOFILE (3017)MCHC (RBC) [Mass/Vol]33.2 g/dL(28.4-34.8)[place], KYComment on above:Note: Responsible Observer: XNV AUTOFILE (3017)Platelet mean volume (Bld) [Entitic vol]10.3 fL(8.1-13.5)[place], KYComment on above:Note: Responsible Observer: XNV AUTOFILE (3017)(cont.)See NoteBrooks Hospital Work Phone: Comment on above:Note: Average GFR for 30-39 years old:107 mL/min/1.73sq mChronic Kidney Disease:<60 mL/min/1.73sq mKidney failure:<15 mL/min/1.73sq meGFR calculated using average adult body mass. Additional eGFR calculatoravailable at:http://www.[employer]/multiple_crcl_2011.htmResponsible Observer: EMETERIO PENALOZA (5140)A2 Macroglob, Xojsj114 mg/dL(131-293)[facility] Work Phone: Comment on above:Note: Responsible Observer: [facility] (0603)Albumin/Glob Ratio1.9(1.0-2.5)[facility] Work Phone: Comment on above:Note: Responsible Observer: EMETERIO PENALOZA (513)Alkaline Phos63 U/L(40-129)[facility] Work Phone: Comment on above:Note: Responsible Observer: EMETERIO PENALOZA (129)ALT, Fibro58 U/LHigh(5-50)[facility] Work Phone: Comment on above:Note: Responsible Observer: [facility] (0603)Amphetamine<20 ng/mLBro[facility] Hospital Work Phone: Comment on above:Note: (NOTE)INTERPRETIVE INFORMATION: Amphetamines, Serum orPlasma, QuantitativeMethodology: Quantitative Liquid Chromatography-Tandem MassSpectrometryPositive cutoff: 20 ng/mLFor medical purposes only; not valid for forensic use.The absence of expected drug(s) and/or drug metabolite(s) mayindicatenon-compliance, inappropriate timing of specimencollection relative to drug administration, poor drug absorption,or limitations of testing. The concentration value must begreater than or equal to thecutoff to be reported as positive.Interpretive questions should be directed to the laboratory.Test developed and characteristics determined by [facility]. See Compliance Statement B: [email or web address] Observer: [facility] (0603)Amphetamines, S/PPositive(Cutoff 20)[facility] Work Phone: Comment on above:Note: (NOTE)If the screen is positive, then confirmation by mass spectrometrywill be added. Additional charges will apply.Unconfirmed positive may be useful for medical purposes, but doesnot meet forensic standards.Responsible Observer: [facility] (0603)AST, Fibro 38 U/L(9-50)[facility] Work Phone: Comment on above:Note: Responsible Observer: [facility] (0603)Barbiturates, S/PNegative(Cutoff 50)[facility] Work Phone: Comment on above:Note: Responsible Observer: [facility] (0603)Benzodiazepines, S/PNegative(Cutoff 50)[facility] Work Phone: Comment on above:Note: Responsible Observer: [facility] (0603)Buprenorphine, S/PNegative(Cutoff 1)[facility] Work Phone: Comment on above:Note: Responsible Observer: [facility] (0603)Cannabinoids, S/P62 ng/mLBro[facility] Work Phone: Comment on above:Note: (NOTE)INTERPRETIVE INFORMATION: THC Metabolite, Serum orPlasma, QuantitativeMethodology: Quantitative Liquid Chromatography-Tandem MassSpectrometry.Positive cutoff: 5 ng/mLFor medical purposes only; not valid for forensic use.The drug analyte detected in this assay, 9-carboxy THC, is ametabolite of qlsyq-3-vihzxqqxprxvhzsjzemk (THC). Detection of9-carboxy THC suggests use of, or exposure to, a productcontaining THC. This test cannot distinguish between prescribedor non-prescribed forms of THC, nor can it distinguish betweenactive or passive use. The plasma half-life for 9-carboxy THCmetabolite is estimated to range from 4-12 hours.Test developed and characteristics determined by [facility]. See Compliance Statement B: vLex.Jelly HQ/CSPerformed By: [facility] [place] [id number] Director: Terese Muniz MDResponsible Observer: LAB [facility] (0646)Cholesterol,HDL55 mg/dL(>40)[facility] Work Phone: Comment on above:Note: HDL Guidelines:<40 Mdxpgimfaih56-96 Borderline>59 DesirableResponsible Observer: EMETERIO PENALOZA (3735)Cholesterol,LDL79 mg/dL(0-130)[facility] Work Phone: Comment on above:Note: LDL Guidelines:<100 Zuftxszis069-055 Near to/above Gkknaoxtm638-003 Borderline>159 UndesirableDirect (measured) LDL and calculated LDL are not interchangeable tests.Responsible Observer: EMETERIO PENALOZA (6999)Cholesterol,VLDLNOT REPORTED mg/dL(1-30)[facility] Work Phone: Cholesterol.total/Cholesterol in HDL [Mass ratio]3.5 {ratio}(<5)[facility] Work Phone: Comment on above:Note: Responsible Observer: EMETERIO PENALOZA (2157)CirrhM Patient Ejuhi0DdokjgBrooks Hospital Work Phone: Comment on above:Note: Responsible Observer: [facility] (0603)Cocaine, Serum/PlasNegative(Cutoff 20)[facility] Work Phone: Comment on above:Note: Responsible Observer: [facility] (0603)CommentSee [facility] Work Phone: Comment on above:Note: (NOTE)INTERPRETIVE INFORMATION: Drug Screen 9 Panel, Serum orPlasma - Immunoassay Screen withReflex to Mass SpectrometryConfirmation/Quantitation1. Methodology: Qualitative Immunoassay Screen2.Drugs/Drug classes reported as Positive are automaticallyreflexed to [...] reflexed to a second, morespecific technology (mass s pectrometry). The concentration valuemust be greater than or equal to the cutoff to be reported aspositive. Interpretive questions should be directed to thelaboratory.4. For medical purposes only; not valid for forensic use.Test developed and characteristics determined by [facility]. See Compliance Statement B: vLex.Jelly HQ/CSPerformed By: [facility] [place] [address] [id number] Director: Terese Muniz MDResponsible Observer: [facility] (06)EER Fibro RptSee NoteBrooks Hospital Work Phone: Comment on above:Note: (NOTE)Access [facility] Enhanced Report using either link below:-Direct access: [email or web address] Username, Password: [email or web address]: [email or web address]: [email or web address] Observer: LAB [facility] (06)Fibro InterpretationSee ReportBrooks Hospital Work Phone: Comment on above:Note: (NOTE)[17][16]INTERPRETIVE INFORMATION: Fibrometer InterpretationCalculations for the final report are based on accurate data forage, gender, and platelet count. If any of this information needsto be corrected, please contact [facility] [employer] [facility] to request arecalculation. Client Services maybe contacted at .The Echosens FibroMeter profile serves as a surrogate marker ofliverfibrosis, cirrhosis, and necro-inflammatory activity. Aproprietary algorithm calculates and compares results from 7 bloodmarkers along with age and gender to provide a patient score (from0 to 1) and a correlated fibrosis stage (Metavir F0-F4) andactivity grade (Metavir A0-A3). The fibrosis/cirrhosis score isfurther evaluated by a rules- based system to detect anomalousprofile results which may [...] numerous septa without cirrhosisF4 = cirrhosisGRADE OF NECRO- INFLAMMATORY ACTIVITY (A scale)A0 = no activityA1 = mild activityA2 = moderate activityA3 = severe activity-Platelet count result provided by client.-The Prothrombin Index test expresses the Prothrombin Time (PT) asa percentage of normal, and is used to standardize PT resultsacross different instrument/reagent combinations.Test developedand characteristics determined by [facility]. SeeCompliance Statement B: Gather/CSPerformed By: [facility] [place] [address] [id number] Director: DAMON Leeesponsible Observer: VALENTIN MODI (0603)Fibro Metavir ClassSEE NOTEHealth [facility] Work Phone: Comment on above:Note: (NOTE)Results for Fibrosis Metavir Classification: F1[F1-F2]INTERPRETIVE INFORMATION: [...] but F3 is possibleResponsible Observer: VALENTIN MODI (06)FibroM Patient Score0.19[facility] Work Phone: Comment on above:Note: Responsible Observer: VALENTIN MODI (06)GFR, Amer>60 mL/min(>60)[facility] Work Phone: Comment on above:Note: Responsible Observer: EMETERIO PENALOZA (6190)GFR,non Amer>60 mL/min(>60)[facility] Work Phone: Comment on above:Note: Responsible Observer: EMETERIO PENALOZA (2177)GGT, Fibro26 U/L(7-51)[facility] Work Phone: Comment on above:Note: Responsible Observer: VALENTIN MODI (0603)HCV Genotype, LMH0aZumzuh [facility] Work Phone: Comment on above:Note: (NOTE)INTERPRETIVE INFORMATION: Hepatitis C GenotypingHepatitis C Viral RNA is tested using reverse transcriptionpolymerase chain reaction (RT-PCR) to amplify a specific portionof the 5' untranslated region (5' UTR) of the viral genome. Theamplified nucleic acid is sequenced bi-directionally usingdye-terminator chemistry ([employer]). Sequencing data is compared to adatabase of [...] Type 1.Test developed and characteristics determined by [facility]iff[facility] centerGu[facility]. See Compliance Statement B: vLex.Jelly HQ/CSPerformed By: [facility] [place] [id number] Director: Terese Muniz, MDResponsible Observer: LAB [facility] (602)HCV RNA,Quant,PCRSee NoteBrooks Hospital Work Phone: Comment on above:Note: Specimen Description .PLASMASpecial Requests NOT REPORTEDDirect Exam HCV RNA DETECTED [id number] (6.94 LOG IU/ML) This test is a sensitive methodfor quantitating HCV RNA viral loads in plasma. It utilizes RT-PCR in the FDAapproved Martina Ampliprep/Taqman 48 System. This test is intended fordetectingand quantifying HCV RNA viral loads in the range of 15 IU/mL to 100,000,000IU/mL (1.18 logIU/mL to 8.00 log IU/mL). Patients should have confirmed HCVinfection prior to RNA quantification. This test has been developed to monitordisease progression and efficacy of anti-HCV drug therapy. This test has beenoptimized for HCV genotypes 1-6.Results reported to the appropriate Health DepartmentReport Status FINAL 05/19/2020Responsible Observer: OSITO ARNOLD (0148)Hep B Surf Ab<3.50 mIU/mL(<10)[facility] Work Phone: Comment on above:Note: REFERENCE RANGE:<10.0 NON- REACTIVE/NOT IMMUNE>=10.0 REACTIVE/IMMUNEResponsible Observer: CEEV AUTOFILE (4947)InflaM Metavir ClassA1/T1WmkgbsBrooks Hospital Work Phone: Comment on above:Note: (NOTE)INTERPRETIVE INFORMATION: InflaMeter Metavir ClassificationInflaMeter (activity score) commentsA0/A1 Equal probability between A0 and A1A1/A2 Equal probability between A1 and A2A2/A3 Equal probability between A2 and B9Gniypynuoyk Observer: LAB [facility] (602)InflaM Patient Score0.28[facility] Work Phone: Comment on above:Note: Responsible Observer: VALENTIN MODI (602)M.dioxyamphetamine<20 ng/mLBrooks Hospital Work Phone: Comment on above:Note: Responsible Observer: LAB [facility] (06)M.dioxyethylamphet<20 ng/mLBrooks Hospital Work Phone: Comment on above:Note: (NOTE)Performed By: [facility] [place] [address] [id number] Director: Terese Muniz, MDResponsible Observer: LAB [facility] (602)M.dioxymethylamphet<20 ng/mL [facility] Work Phone: Comment on above:Note: Responsible Observer: LAB [facility] (06)Methadone, S/PNegative(Cutoff 25)[facility] Work Phone: Comment on above:Note: Responsible Observer: LAB [facility] (602)Hdsvaqpfooyfuve422 ng/mLBrooks Hospital Work Phone: Comment on above:Note: (NOTE)Consistent with use of a drug containing methamphetamine.Methamphetamine is metabolizedto amphetamine. Amphetamine andmethamphetamine exist in d- and l-isomeric forms. These forms arenotdistinguished by this test. Isomeric separation is availableseparately for an additional charge.Responsible Observer: LAB [facility] (06)Methamphetamine,S/P Positive(Cutoff 20)[facility] Work Phone: Comment on above:Note: (NOTE)If the screen is positive, then confirmation by mass spectrometrywill be added. Additional charges will apply.Unconfirmed positive may be useful for medical purposes, but doesnot meet forensic standards.Responsible Observer: LAB [facility] (06)Opiates, Serum/PlasNegative(Cutoff 20)[facility] Work Phone: Comment on above:Note: Responsible Observer: LAB [facility] (06)Oxycodone, S/PNegative(Cutoff 20)[facility] Work Phone: Comment on above:Note: Responsible Observer: VALENTIN MODI (602)Performing Lab:see noteBrooks Hospital Work Phone: Comment on above:Note: [facility] [address] [facility] [address] Note: [facility] [address] [facility] [address] Nnjr: [facility] [address] [facility] [address] [facility] [address] [facility] [address] Phencyclidine, S/PNegative(Cutoff 10)[facility] Work Phone: Comment on above:Note: Responsible Observer: [facility] (0603)Prothrombin Wlzgm407 %(90-120)[facility] Work Phone: Comment on above:Note: Responsible Observer: LAB [facility] (0603)Reported PhysiciansSee NoteBrooks Hospital Work Phone: Comment on above:Note: Reported Physicians:Ordering: Escobar GomezAttending: Barb Gomezeferring: Traci Gomez, Serum/Plasma Positive(Cutoff 20)[facility] Work Phone: Comment on above:Note: (NOTE)If the screen is positive, then confirmation by mass spectrometrywill be added. Additional charges will apply.Unconfirmed positive may be useful for medical purposes, but doesnot meet forensic standards.Responsible Observer: [facility] (0603)Thyroid Stim. Horm.0.93 mIU/L(0.30-5.00)[facility] Work Phone: Comment on above:Note: Responsible Observer: EMETERIO PENALOZA (7510)Triglyceride,Inhsrta149 mg/dLHigh(<150)[facility] Work Phone: Comment on above:Note: Triglyceride Guidelines:<150 Fwlurmzwb407-773 Xpwgzxcgub320-516 High>499 Very highBasedon AHA Guidelines for fasting triglyceride, May 2012.Responsible Observer: EMETERIO PENALOZA (5163) PTon 56-72-1131REV Coag (PPP) [Relative time]1.0 {INR}NormalMercy Porterville Developmental CenterComment on above:Result Comment: Therapeutic Range: Moderate Anticoagulant Intensity: INR = 2.0-3.0 High Anticoagulant Intensity: INR = 2.5-3.5Performed By: #### CDP, CP, LIPR, TSHX, TREP, HIVCMB, HSVPR #### [facility] [place], [place] [id number] Firmware Engineer: Satya Valdez MD #### AHANGELINA #### [facility] [address] [place], [place] [phone] Firmware Engineer: MATTIE MeléndezT Coag (PPP) [Time]10.2 sNormal9.0-12.0[facility]point Medical CenterComment on above:Performed By: #### CDP, CP, LIPR, TSHX, TREP, HIVCMB, HSVPR #### [facility] [address] [place] [address] [phone] Firmware Engineer: Satya Valdez MD #### AHIshmaelGEN #### [facility] [address] [place] [address] Firmware Engineer: Remi Harman, MDCT ABDOMEN PELVIS W IV CONTRAST Additional Contrast? Oralon . No acute intra-abdominal abnormality. 2. No acute intrapelvic abnormality.[facility], [place]EX[place]: CT OF THE ABDOMEN AND PELVIS WITH CONTRAST 01/22/2020 4:52 pm TECHNIQUE: CT of the abdomen and pelvis was performed with the administration of intravenous contrast. Multiplanar reformattedimages are provided for review. Dose modulation, iterative [...] Bones/Soft Tissues: No acute bony abnormalities are noted.[facility], Fidencio Young Incoming Radiant Results From Dr [facility]/CIQUAL - 01/22/2020 5:08 PM EDT EXAMINATION: CT [...] intra-abdominal abnormality. 2. No acute intrapelvic abnormality. [facility], KYHCV Genotype, PCRon [id number] Genotype, BVR0wEgktspJzyykWVUMedicine Barnesville HospitalComment on above:Result Comment: (NOTE) INTERPRETIVE INFORMATION: Hepatitis C Genotyping Hepatitis C Viral RNA is tested using reverse plastering contractor polymerase chain reaction (RT-PCR) to amplify a specific portion of the 5' untranslated region (5' UTR) of the viral genome. The amplified nucleic acid is sequenced bi-directionally using dye-terminator chemistry ([employer]). Sequencing data is compared to a database [...] 1. Test developed and characteristics determined by [employer]. See Compliance Statement B: [employer]/ Performed by [employer], [address] [place] [address] [id number] [email or web address], Remi Harman MD, Lab. DirectorPerformed By: #### CDP, CP, LIPR, TSHX, TREP, HIVCMB, HSVPR #### [address] [phone] Firmware Engineer: Satya Valdez MD #### AHIshmaelGEN #### [address] [address] Firmware Engineer: Remi Harman MDHCV RNA,Quant,PCRon [id number] RNA,Quant,PCR Specimen Description .PLASMA Special Requests NOT REPORTED Direct Exam HCV RNA DETECTED [id number] IU/ML (6.49 LOG IU/ML) This test is [...] the appropriate Health Department Report Status FINAL 05/29/2019NormalMerVencor HospitalComment on above:Performed By: #### CDP, CP, LIPR, TSHX, TREP, HIVCMB, HSVPR #### [address] [id number] Firmware Engineer: Satya Valdez MD #### DREAGEN #### [address] [address] Firmware Engineer: Remi Harman MDHerpes Profileon [id number] Type I, IgG6.81 High<0.91L[facility] Tripoint Medical CenterComment on above:Result Comment: Reference Range: <=0.90 Negative 0.91-1.09 Equivocal >=1.10 PositivePerformed By: #### CDP, CP, LIPR, TSHX, TREP, HIVCMB, HSVPR #### [address] [id number] Firmware Engineer: Satya Valdez MD #### AHCGEN #### [address] [address] Firmware Engineer: Carole Meléndez Type I/II,IgM1.05High<0.91L[facility] Tripoint Medical CenterComment on above:Result Comment: Reference Range: <=0.90 Negative 0.91-1.09 Equivocal >=1.10 Positive If positive, an IgM result indicates a current or recent infection. This test does not differentiate type I from type II. No current reference test is available for this. If IgG tests are ordered and are negative, consider retesting in 2 to 3 weeks.Performed By: #### CDP, CP, LIPR, TSHX, TREP, HIVCMB, HSVPR #### [place] [address] Firmware Engineer: Satya Valdez MD #### NEGIN #### [address] [phone] Firmware Engineer: Carole Meléndez Type II, IgG0.76Normal<0.91L[facility]point Medical CenterComment on above:Result Comment: Reference Range: <=0.90 Negative 0.91-1.09 Equivocal >=1.10 PositivePerformed By: #### CDP, CP, LIPR, TSHX, TREP, HIVCMB, HSVPR #### [address] [phone] Firmware Engineer: Satya Valdez MD #### AHCGEN #### [address] [phone] Firmware Engineer: RENNY Meléndez with Diffon [id number]. Basophil0.05 k/uL Normal0.00-0.20[facility]point Medical CenterComment on above:Performed By: #### CDP, CP, LIPR, TSHX, TREP, HIVCMB, HSVPR #### [facility] [address] [place] [address] Firmware Engineer: Satya Valdez MD #### AHCGEN #### [facility] [address] [place] [address] Firmware Engineer: Alvarado Meléndez.Imm.Granulocyte<0.27Cksslt0.00-0.30[facility]point Medical CenterComment on above:Performed By: #### CDP, CP, LIPR, TSHX, TREP, HIVCMB, HSVPR #### [facility] [address] [place] [address] Firmware Engineer: Satya Valdez MD #### AHCGEN #### [facility] [address] [place] [address] Firmware Engineer: Alvarado Meléndez.Neutrophil (Seg)3.47 k/uLNormal1.50-8.10[facility] Medical CenterComment on above:Performed By: #### CDP, CP, LIPR, TSHX, TREP, HIVCMB, HSVPR #### [facility] [address] [place] [address] Firmware Engineer: Satya Valdez MD #### AHCGEN #### [facility] [address] [place] [address] Firmware Engineer: Remi Harman MDBasophils/100 WBC (Bld)1 %Normal0-2[facility] Developmental CenterComment on above:Performed By: #### CDP, CP, LIPR, TSHX, TREP, HIVCMB, HSVPR #### [facility] [address] [place] [address] Firmware Engineer: Satya Valdez MD #### AHCGEN #### [facility] [address] [place], [place] [phone] Firmware Engineer: Remi Harman MDEosinophils (Bld) [#/Vol]0.25 10*3/uLNormal 0.00-0.44[facility] Medical CenterComment on above:Performed By: #### CDP, CP, LIPR, TSHX, TREP, HIVCMB, HSVPR #### [facility] [address] [place] [address] Firmware Engineer: Satya Valdez MD #### AHCGEN #### [facility] [address] [place], [place] [phone] Firmware Engineer: Remi Harman MDEosinophils/100 WBC (Bld)4 %Normal1-4[facility] Medical CenterComment on above:Performed By: #### CDP, CP, LIPR, TSHX, TREP, HIVCMB, HSVPR #### [place] [address] Firmware Engineer: Satya Valdez MD #### AHCGEN #### [facility] [address], [place] [phone] Firmware Engineer: Remi Harman MDErythrocyte distribution width (RBC) [Ratio]12.4 %Lekyzv98.8-14.4[facility] Medical CenterComment on above:Performed By: #### CDP, CP, LIPR, TSHX, TREP, HIVCMB, HSVPR #### [facility] [address] [place] [address] Firmware Engineer: Satya Valdez MD #### AHCGEN #### [facility] [address] [place] [address] Firmware Engineer: Remi Harman MDHematocrit (Bld) [Volume fraction]48.5 %Normal 40.7-50.3MCity of Hope National Medical CenterComment on above:Performed By: #### CDP, CP, LIPR, TSHX, TREP, HIVCMB, HSVPR #### [place] [address] Firmware Engineer: Satya Valdez MD #### AHCGEN #### [address] [address] Firmware Engineer: Remi Harman MDHemoglobin (Bld) [Mass/Vol]16.0 g/dLNormal 13.0-17.0[facility] Medical CenterComment on above:Performed By: #### CDP, CP, LIPR, TSHX, TREP, HIVCMB, HSVPR #### [place] [address] Firmware Engineer: Satya Valdez MD #### AHCGEN #### [address] [address] Firmware Engineer: Remi Harman MDImmature granulocytes (Bld) [#/Vol]0 %Normal0 [facility] Medical CenterComment on above:Performed By: #### CDP, CP, LIPR, TSHX, TREP, HIVCMB, HSVPR #### [place] [address] Firmware Engineer: Satya Valdez MD #### AHCGEN #### [facility] [address] [place] [address] Firmware Engineer: Remi Harman MDLymphocytes (Bld) [#/Vol]2.73 10*3/uLNormal 1.10-3.70[facility] Medical CenterComment on above:Performed By: #### CDP, CP, LIPR, TSHX, TREP, HIVCMB, HSVPR #### [facility] [address] Firmware Engineer: Satya Valdez MD #### AHCGEN #### [facility] [address] [place], [place] [id number] Firmware Engineer: Remi Harman MDLymphocytes/100 WBC (Bld)38 %Ubikpv66-14UwvyaLakehealth Tripoint Medical CenterComment on above:Performed By: #### CDP, CP, LIPR, TSHX, TREP, HIVCMB, HSVPR #### [facility] [address] [place] [address] Firmware Engineer: Satya Valdez MD #### AHCGEN #### [facility] [address] [place], [place] [id number] Firmware Engineer: MESSI MeléndezCH (RBC) [Entitic mass]30.5 ydSlgvfo23.2-33.5 [facility] CenterComment on above:Performed By: #### CDP, CP, LIPR, TSHX, TREP, HIVCMB, HSVPR #### [address] [address] Firmware Engineer: Satya Valdez MD #### AHCGEN #### [facility] [address] [place], [place] [phone] Firmware Engineer: MELI MeléndezC (RBC) [Mass/Vol]33.0 g/pHRhkubo93.4-34.8 [facility] CenterComment on above:Performed By: #### CDP, CP, LIPR, TSHX, TREP, HIVCMB, HSVPR #### [address] [address] Firmware Engineer: Satya Valdez MD #### AHCGEN #### [facility] [address] [place] [address] Firmware Engineer: MESSI MeléndezCV (RBC) [Entitic vol]92.4 sBAsipke76.6-102.9 [facility] CenterComment on above:Performed By: #### CDP, CP, LIPR, TSHX, TREP, HIVCMB, HSVPR #### [facility] [address] [place] [address] Firmware Engineer: Satya Valdez MD #### CGEN #### [facility] [address] [place] [address] Firmware Engineer: Remi Harman MDMonocytes (Bld) [#/Vol]0.61 10*3/uLNormal 0.10-1.20[facility] CenterComment on above:Performed By: #### CDP, CP, LIPR, TSHX, TREP, HIVCMB, HSVPR #### [place] [address] Firmware Engineer: Satya Valdez MD #### IshmaelGEN #### [address] [address] Firmware Engineer: MESSI Meléndezonocytes/100 WBC (Bld)9 %Normal3-12[facility] Medical CenterComment on above:Performed By: #### CDP, CP, LIPR, TSHX, TREP, HIVCMB, HSVPR #### [place] [address] Firmware Engineer: Satya Valdez MD #### CGEN #### [facility] [address] [place] [address] Firmware Engineer: Remi Harman MDNeutrophil (Seg)48 %Tincsa36-46AtnueLakehealth Tripoint Medical CenterComment on above:Performed By: #### CDP, CP, LIPR, TSHX, TREP, HIVCMB, HSVPR #### [address] [address] Firmware Engineer: Satya Valdez MD #### AHCGEN #### [facility] [address] [place] [address] Firmware Engineer: Remi Harman MDNRBC Automated0.0 per 100 WBCNormal0.0[facility] Medical CenterComment on above:Performed By: #### CDP, CP, LIPR, TSHX, TREP, HIVCMB, HSVPR #### [facility] [address] [place] [address] Firmware Engineer: Satya Valdez MD #### AHCGEN #### [facility] [address] [place] [address] Firmware Engineer: Robbie Meléndez mean volume (Bld) [Entitic vol]9.9 fL Normal8.1-13.5[facility] Medical CenterComment on above:Performed By: #### CDP, CP, LIPR, TSHX, TREP, HIVCMB, HSVPR #### [facility] [address] [place] [address] Firmware Engineer: Satya Valdez MD #### CLEVELANDCGEN #### [facility] [address] [place] [address] Firmware Engineer: Ariana Meléndez (Bld) [#/Vol]370 10*3/mTDabxyg689-025 [facility] CenterComment on above:Performed By: #### CDP, CP, LIPR, TSHX, TREP, HIVCMB, HSVPR #### [facility] [address] [place] [address] Firmware Engineer: Satya Valdez MD #### AHCGEN #### [facility] [address] [place] [address] Firmware Engineer: GALINA Meléndez (Bld) [#/Vol]5.25 10*6/uLNormal4.21-5.77[facility] Medical CenterComment on above:Performed By: #### CDP, CP, LIPR, TSHX, TREP, HIVCMB, HSVPR #### [facility] [address] [place] [address] Firmware Engineer: Satya Valdez MD #### AHCGEN #### [facility] [address] [place] [address] Firmware Engineer: EZEQUIEL Meléndez (Markd) [#/Vol]7.1 10*3/uLNormal3.5-11.3[facility] Developmental CenterComment on above:Performed By: #### CDP, CP, LIPR, TSHX, TREP, HIVCMB, HSVPR #### [facility] [address] [place] [address] Firmware Engineer: Satya Valdez MD #### CLEVELANDCGEN #### [facility] [address] [place] [address] Firmware Engineer: Memo Meléndez PerformedNOT REPORTEDOhio State Harding HospitalComment on above:Performed By: #### CDP, CP, LIPR, TSHX, TREP, HIVCMB, HSVPR #### [facility] [address] [place] [address] Firmware Engineer: Satya Valdez MD #### AHCGEN #### [facility] [address] [place] [address] Firmware Engineer: Ariana Meléndez (Rayshawn) [#/Vol]NOT REPORTEDOhio State Harding HospitalComment on above:Performed By: #### CDP, CP, LIPR, TSHX, TREP, HIVCMB, HSVPR #### [facility] [address] [place] [address] Firmware Engineer: Satya Valdez MD #### AHCGEN #### [facility] [address] [place] [address] Firmware Engineer: GALINA Meléndez morphology finding Nom (Bld)NOT REPORTED NormalMerVencor HospitalComment on above:Performed By: #### CDP, CP, LIPR, TSHX, TREP, HIVCMB, HSVPR #### [facility] [address] [place] [address] Firmware Engineer: Satya Valdez MD #### AHCGEN #### [facility] [address] [place] [address] Firmware Engineer: EZEQUIEL Meléndez MorphologyNOT REPORTEDThree Rivers HealthcarealLakehealth Tripoint Medical CenterComment on above:Performed By: #### CDP, CP, LIPR, TSHX, TREP, HIVCMB, HSVPR #### [facility] [address] [place] [address] [phone] Firmware Engineer: Satya Valdez MD #### AHCGEN #### [facility] [address] [place] [address] Firmware Engineer: RENNY Meléndezhlamydia/GC DNA, Uron [id number] Probe, UrNegativeCherrington HospitalComment on above:Result Comment: CHLAMYDIA TRACHOMATIS DNA not detected by nucleic acid [...] positive results by an alternative nucleic acid target.Performed By: #### UCGP, TRCMOL #### [facility] [address] [place] [address] [phone] Firmware Engineer: Satya Valdez MDGonorrhea Probe, UrNegativeCherrington HospitalComment on above:Result Comment: NEISSERIA GONORRHOEAE DNA not detected by nucleic acid [...] positive results by an alternative nucleic acid target.Performed By: #### UCGP, TRCMOL #### [address] [phone] Firmware Engineer: RENNY [facility] Metabolic Profon 05-27-2019(cont.)Normal [facility] Medical CenterComment on above:Result Comment: Average GFR for 30-39 years old: 107 mL/min/1.73sq m Chronic Kidney Disease: <60 mL/min/1.73sq m Kidney failure: <15 mL/min/1.73sq m eGFR calculated using average adult body mass. Additional eGFR calculator available at: http://www.Edenbee.com.Jelly HQ/multiple_crcl_2012.htmPerformed By: #### CDP, CP, LIPR, TSHX, TREP, HIVCMB, HSVPR #### [address] [address] Firmware Engineer: Satya Valdez MD #### NEGIN #### [address] [address] Firmware Engineer: Remi Harman MDAlbumin [Mass/Vol]4.4 g/dLNormal3.5-5.2[facility] Developmental CenterComment on above:Performed By: #### CDP, CP, LIPR, TSHX, TREP, HIVCMB, HSVPR #### [address] [phone] Firmware Engineer: Satya Valdez MD #### DREAGEN #### [address] [address] Firmware Engineer: Remi Harman MDAlbumin/Globulin [Mass ratio]1.5 {ratio}Normal 1.0-2.5[facility] CenterComment on above:Performed By: #### CDP, CP, LIPR, TSHX, TREP, HIVCMB, HSVPR #### [address] [address] Firmware Engineer: Satya Valdez MD #### AHCGEN #### [facility] [address] [place] [address] Firmware Engineer: Laura Meléndez Phos71 U/AHfixmc36-035LykpeLakehealth Tripoint Medical CenterComment on above:Performed By: #### CDP, CP, LIPR, TSHX, TREP, HIVCMB, HSVPR #### [address] [address] Firmware Engineer: Satya Valdez MD #### AHCGEN #### [address] [address] Firmware Engineer: Remi Harman MDALT [Catalytic activity/Vol]43 U/LHigh5-41[facility] CenterComment on above:Performed By: #### CDP, CP, LIPR, TSHX, TREP, HIVCMB, HSVPR #### [address] [address] Firmware Engineer: Satya Valdez MD #### AHCGEN #### [address] [address] Firmware Engineer: Rimma Meléndez gap [Moles/Vol]12 mmol/LNormal9-17[facility] CenterComment on above:Performed By: #### CDP, CP, LIPR, TSHX, TREP, HIVCMB, HSVPR #### [address] [address] Firmware Engineer: Satya Valdez MD #### AHCGEN #### [facility] [address] [place] [address] Firmware Engineer: Remi Harman MDAST [Catalytic activity/Vol]37 U/LNormal<40[facility] CenterComment on above:Performed By: #### CDP, CP, LIPR, TSHX, TREP, HIVCMB, HSVPR #### [facility] [address] [place] [address] Firmware Engineer: Satya Valdez MD #### AHCGEN #### [facility] [address] [place] [address] Firmware Engineer: Remi Harman MDBilirubin Ql (U)0.38 mg/dLNormal0.3-1.2MCity of Hope National Medical CenterComment on above:Performed By: #### CDP, CP, LIPR, TSHX, TREP, HIVCMB, HSVPR #### [address] [address] Firmware Engineer: Satya Valdez MD #### AHCGEN #### [facility] [address] [place] [address] Firmware Engineer: RENNY Meléndezalcium [Mass/Vol]9.7 mg/dLNormal8.6-10.4[facility] CenterComment on above:Performed By: #### CDP, CP, LIPR, TSHX, TREP, HIVCMB, HSVPR #### [facility] [address] [place] [address] Firmware Engineer: Satya Valdez MD #### AHCGEN #### [facility] [address] [place], [place] [phone] Firmware Engineer: Remi Harman MDChloride [Moles/Vol]100 mmol/UOrutfl54-457DumhpLakehealth Tripoint Medical CenterComment on above:Performed By: #### CDP, CP, LIPR, TSHX, TREP, HIVCMB, HSVPR #### [facility] [address] [place] [address] Firmware Engineer: Satya Valdez MD #### CGEN #### [facility] [address] [place] [address] Firmware Engineer: RENNY MeléndezO2 [Moles/Vol]27 mmol/OWbxltf25-66WvvxoLakehealth Tripoint Medical CenterComment on above:Performed By: #### CDP, CP, LIPR, TSHX, TREP, HIVCMB, HSVPR #### [facility] [address] [place] [address] Firmware Engineer: Satya Valdez MD #### CGEN #### [facility] [address] [place] [address] Firmware Engineer: RENNY Meléndezreatinine [Mass/Vol]1.28 mg/dLHigh0.70-1.20[facility] CenterComment on above:Performed By: #### CDP, CP, LIPR, TSHX, TREP, HIVCMB, HSVPR #### [facility] [address] [place] [address] Firmware Engineer: Satya Valdez MD #### CGEN #### [facility] [address] [place] [address] Firmware Engineer: Reim Harman MDGFR, Amer>60Normal>60[facility] CenterComment on above:Performed By: #### CDP, CP, LIPR, TSHX, TREP, HIVCMB, HSVPR #### [facility] [address] [place] [address] Firmware Engineer: Satya Valdez MD #### AHCGEN #### [facility] [address] [place] [address] Firmware Engineer: Remi Harman MDGFR,non Amer>60Normal>60[facility] CenterComment on above:Performed By: #### CDP, CP, LIPR, TSHX, TREP, HIVCMB, HSVPR #### [facility] [address] [place] [address] Firmware Engineer: Satya Valdez MD #### AHCGEN #### [facility] [address] [place], [place] [phone] Firmware Engineer: Remi Harman MDGlucose [Mass/Vol]77 mg/vMMcvahp74-60Qfqui [facility] Developmental CenterComment on above:Performed By: #### CDP, CP, LIPR, TSHX, TREP, HIVCMB, HSVPR #### [facility] [address] [place] [address] Firmware Engineer: Satya Valdez MD #### AHCGEN #### [facility] [address] [place] [address] [phone] Firmware Engineer: MATTIE Meléndezotassium [Moles/Vol]3.9 mmol/LNormal3.7-5.3[facility] Developmental CenterComment on above:Performed By: #### CDP, CP, LIPR, TSHX, TREP, HIVCMB, HSVPR #### [address] [address] Firmware Engineer: Satya Valdez MD #### AHCGEN #### [facility] [address] [place] [address] [phone] Firmware Engineer: Remi Harman MDProtein [Mass/Vol]7.3 g/dLNormal6.4-8.3[facility] Developmental CenterComment on above:Performed By: #### CDP, CP, LIPR, TSHX, TREP, HIVCMB, HSVPR #### [facility] [address] [place] [address] Firmware Engineer: Satya Valdez MD #### AHCGEN #### [facility] [address] [place] [address] [phone] Firmware Engineer: BRYNN Meléndezodium [Moles/Vol]139 mmol/VXjvsmo220-007OcamjLakehealth Tripoint Medical CenterComment on above:Performed By: #### CDP, CP, LIPR, TSHX, TREP, HIVCMB, HSVPR #### [facility] [address] [place] [address] Firmware Engineer: Satya Valdez MD #### CGEN #### [facility] [address] [place] [address] [phone] Firmware Engineer: Remi Harman MDUrea nitrogen [Mass/Vol]9 mg/dLNormal6-20[facility] CenterComment on above:Performed By: #### CDP, CP, LIPR, TSHX, TREP, HIVCMB, HSVPR #### [address] [phone] Firmware Engineer: Satya Valdez MD #### CGEN #### [facility] [address] [place] [address] [phone] Firmware Engineer: Remi Harman MDBUN/ESTHER Rush REPORTEDNormal9-20[facility] CenterComment on above:Performed By: #### CDP, CP, LIPR, TSHX, TREP, HIVCMB, HSVPR #### [address] [phone] Firmware Engineer: Satya Valdez MD #### AHCGEN #### [facility] [address] [place] [phone] Firmware Engineer: BRYNN Meléndeztaging:NOT REPORTEDNormalLakehealth Tripoint Medical CenterComment on above:Performed By: #### CDP, CP, LIPR, TSHX, TREP, HIVCMB, HSVPR #### [facility] [address] [place] [address] [phone] Firmware Engineer: Satya Valdez MD #### AHCGEN #### [facility] [address] [place] [address] Firmware Engineer: Remi Harman [facility] Hospitalensive Metabolic Panelon [id number] [Mass/Vol]4.4 g/dL3.5 - 5.2 g/dLWvumedicine [facility]- [place], KYAlbumin/Globulin [Mass ratio]1.5 {ratio}[facility]- [place], KYALP [Catalytic activity/Vol]71 U/L40 - 129 U/LMwhite hospital Health- [place], KYALT [Catalytic activity/Vol]43 U/LHigh5 - 41 U/LMwhite hospital Health- [place], KYAnion gap [Moles/Vol]12 mmol/L9 - 17 mmol/LMwhite hospital Health- [place], KYAST [Catalytic activity/Vol]37 U/L<40[facility]- [place], KYBilirubin Ql (U)0.38 mg/dL 0.3 - 1.2 mg/dLOhiohealth [facility]- [place], KYBun/Cre RatioNOT REPORTEDMerShriners Hospitals for Children- [place], [place] Calcium [Mass/Vol]9.7 mg/dL8.6 - 10.4 mg/dLKettering Health Miamis[facility] [place], KYChloride [Moles/Vol]100 mmol/L98 - 107 mmol/LMwhite [facility] Health- [place], KYCO2 [Moles/Vol]27 mmol/L 20 - 31 mmol/LMwhite hospital [facility]- [place], KYCreatinine [Mass/Vol]1.28 mg/dLHigh0.7 - 1.2 mg/dLOhiohealth [facility]- [place], KYGFR >60>60 mL/minOhiohealth [facility] City [facility]- [place], [place] GFR Non->60>60 mL/minOhiohealth Grove City [facility] Hospital- [place], KYGFR/1.73 sq M predicted among non-blacks MDRD (S/P/Bld) [Vol rate/Area]NOT REPORTEDAs[facility], [place] GFR/1.73 sq M predicted among non-blacks MDRD (S/P/Bld) [Vol rate/Area][facility], KYComment on above:Average GFR for 30-39 years old: 107 mL/min/1.73sq m Chronic Kidney Disease: <60 mL/min/1.73sq m Kidney failure: <15 mL/min/1.73sq m eGFR calculated using average adult body mass. Additional eGFR calculator available at: http://www.Edenbee.com.Jelly HQ/multiple_crcl_2012.htm Glucose [Mass/Vol]77 mg/dL70 - 99 mg/dLAshtabula General Hospital, KYPotassium [Moles/Vol] 3.9 mmol/L3.7 - 5.3 mmol/LMHenry County Hospital, KYProtein [Mass/Vol]7.3 g/dL6.4 - 8.3 g/dLAshtabula General Hospital, KYSodium [Moles/Vol]139 mmol/L135 - 144 mmol/LMHenry County Hospital, KYUrea nitrogen [Mass/Vol]9 mg/dL6 - 20 mg/dLAshtabula General Hospital, KYHCV Genotype, PCRon [id number] Viral LoadNOT REPORTEDNormalLakehealth Tripoint Medical CenterComment on above:Performed By: #### CDP, CP, LIPR, TSHX, TREP, HIVCMB, HSVPR #### [facility] [address] [place] [address] Firmware Engineer: Satya Valdez MD #### DREAGEN #### [facility] [address] [place] [address] Firmware Engineer: Remi Harman MDHIV Ag/Abon [id number] Ag/AbNONREACTIVENormFulton County Health CenterComment on above:Result Comment: No laboratory evidence of HIV infection. If acute HIV infection is suspected, consider testing for HIV-1 RNA.Performed By: #### CDP, CP, LIPR, TSHX, TREP, HIVCMB, HSVPR #### [employer] [address] [place] [address] [phone] Firmware Engineer: Satya Valdez MD #### AHCGEN #### [facility] [address] [place] [address] Firmware Engineer: Remi Harmna MDLipid Panelon [id number] [Mass/Vol]233 mg/dLHigh<200[place], [place]Comment on above: Cholesterol Guidelines: <200 Desirable 200-240 Borderline >240 Undesirable Cholesterol in HDL [Mass/Vol]60 mg/dL>40[place], KYComment on above: HDL Guidelines: <40 Undesirable 40-59 Borderline >59 Desirable Cholesterol in LDL [Mass/Vol]145 mg/dLHigh0 - 130 mg/dLHansville, [place] Comment on above: LDL Guidelines: <100 Desirable 100-129 Near to/above Desirable 130-159 Borderline >159 Undesirable Direct (measured) LDL and calculated LDL are not interchangeable tests. Cholesterol in VLDL [Mass/Vol]NOT REPORTED1 - 30 mg/dLHansville, [place] Cholesterol.total/Cholesterol in HDL [Mass ratio]3.9 {ratio}<5[place], KYTriglyceride [Mass/Vol]138 mg/dL<150[place], KYComment on above: Triglyceride Guidelines: <150 Desirable 150-199 Borderline 200-499 High >499 Very high Based on AHA Guidelines for fasting triglyceride, May 2012. Lipid Profileon [id number] [Mass/Vol]233 mg/dLHigh<200[facility] CenterComment on above:Result Comment: Cholesterol Guidelines: <200 Desirable 200-240 Borderline >240 UndesirablePerformed By: #### CDP, CP, LIPR, TSHX, TREP, HIVCMB, HSVPR #### [employer] [address] [place] [phone] Firmware Engineer: Satya Vladez MD #### DREAGEN #### [facility] [address] [place] [address] Firmware Engineer: Remi Harman MDCholesterol in HDL [Mass/Vol]60 mg/dLNormal>40 [facility] CenterComment on above:Result Comment: HDL Guidelines: <40 Undesirable 40-59 Borderline >59 DesirablePerformed By: #### CDP, CP, LIPR, TSHX, TREP, HIVCMB, HSVPR #### [employer] [address] [place] [address] [phone] Firmware Engineer: Satya Valdez MD #### AHCGEN #### [facility] [address], [place] [phone] Firmware Engineer: RENNY Meléndezholesterol in LDL [Mass/Vol]145 mg/dLHigh0-130 [facility] CenterComment on above:Result Comment: LDL Guidelines: <100 Desirable 100-129 Near to/above Desirable 130-159 Borderline >159 Undesirable Direct (measured) LDL and calculated LDL are not interchangeable tests.Performed By: #### CDP, CP, LIPR, TSHX, TREP, HIVCMB, HSVPR #### [facility] [address] [place] [address] Firmware Engineer: Satya Valdez MD #### AHCGEN #### [facility] [address] [place], [place] [phone] Firmware Engineer: Timo Meléndez.total/Cholesterol in HDL [Mass ratio] 3.9 {ratio}Normal<5[facility] CenterComment on above:Performed By: #### CDP, CP, LIPR, TSHX, TREP, HIVCMB, HSVPR #### [employer] [address] [place] [address] Firmware Engineer: Satya Valdez MD #### AHCGEN #### [facility] [address] [place], [place] [phone] Firmware Engineer: Remi Harman MDTriglyceride [Mass/Vol]138 mg/dLNormal<150[facility] CenterComment on above:Result Comment: Triglyceride Guidelines: <150 Desirable 150-199 Borderline 200-499 High >499 Very high Based on AHA Guidelines for fasting triglyceride, May 2012.Performed By: #### CDP, CP, LIPR, TSHX, TREP, HIVCMB, HSVPR #### [employer] [address] [place] [address] Firmware Engineer: Satya Valdez MD #### AHCGEN #### [facility] [address] [place] [address] Firmware Engineer: RENNY Meléndezholesterol in VLDL [Mass/Vol]NOT REPORTEDNormal 09-17[facility] CenterComment on above:Performed By: #### CDP, CP, LIPR, TSHX, TREP, HIVCMB, HSVPR #### [address] [phone] Firmware Engineer: Satya Valdez MD #### AHANGELINA #### [facility] [address] [place] [address] Firmware Engineer: Remi Harman MDOther [id number] and review of laboratory resultsAbCommunity Regional Medical Center, DCT.pallidum Ab Screenon 05-27-2019 T.pallidum Ab ScreenNONREACTIVENoKnox Community HospitalComment on above:Result Comment: T. pallidum antibodies are not detected. There is no serological evidence of infection with T. pallidum (early primary syphilis cannot be excluded). Retest in 2-4 weeks if syphilis is clinically suspect.Performed By: #### CDP, CP, LIPR, TSHX, TREP, HIVCMB, HSVPR #### [address] [phone] Firmware Engineer: Satya Valdez MD #### NEGIN #### [address] [address] Firmware Engineer: Remi Harman MDTS w/reflex to FT4on [id number] Qn2.51 m[IU]/LNormal0.30-5.00[facility] CenterComment on above:Performed By: #### CDP, CP, LIPR, TSHX, TREP, HIVCMB, HSVPR #### [address] [phone] Firmware Engineer: Satya Valdez MD #### AHCGEN #### [facility] [address] [place] [address] Firmware Engineer: Remi Harman MDDE[facility] with Reflexon [id number] Qn2.51 m[IU]/L [facility]- [place], KYTrich Vag, Molecularon [id number] Vag, Molecular NegativeNormalNEGMercy Porterville Developmental CenterComment on above:Result Comment: T. vaginalis DNA not detected Results should be interpreted in conjunction with other clinical data. This test is intended for medical purposes only and is not valid for the evaluation of suspected sexual abuse or for other forensic purposes. This test has not been evaluated in women or in patients less than 16 years of age.Performed By: #### JESSEGP, TROL #### [employer] [address] [place], [place] [phone] Firmware Engineer: Ligia Dinhce:.URINENormalMercy Porterville Developmental CenterComment on above:Performed By: #### JESSE, TRCMOL #### [employer] [address] [place], [place] [phone] Firmware Engineer: Satya Valdez [facility] Auto Differentialon [id number] (Bld) [#/Vol]0.05 10*3/uLMercy Health- [place], KYBasophils/100 WBC (Bld)1 %0 - 2 % [facility]- [place], KYDifferential TypeNOT REPORTEDMercy Health- [place], KYEosinophils (Bld) [#/Vol]0.25 10*3/uLMercy Health- [place], KYEosinophils/100 WBC (Bld)4 %1 - 4 %[facility]- [place], KYErythrocyte distribution width (RBC) [Ratio]12.4 %11.8 - 14.4 %[facility] [place], KYHematocrit (Bld) [Volume fraction]48.5 %40.7 - 50.3 % [facility] [place], KYHemoglobin (Bld) [Mass/Vol]16.0 g/dL13 - 17 g/dLMercy Health- [place], KYImmature granulocytes (Bld) [#/Vol]0 %0[facility]- [place], [place] Immature granulocytes (Bld) [#/Vol]10*3/uLWvumedicine [facility]- [place], KYLymphocytes (Bld) [#/Vol]2.73 10*3/uLWvumedicine [facility]- [place], KYLymphocytes/100 WBC (Bld)38 %24 - 43 % [facility]- [place], KYMCH (RBC) [Entitic mass]30.5 pg25.2 - 33.5 pgOhiohealth [facility]- [place], KYMCHC (RBC) [Mass/Vol]33.0 g/dL28.4 - 34.8 g/dLWvumedicine [facility] Health- [place], KYMCV (RBC) [Entitic vol]92.4 fL82.6 - 102.9 fLOhiohealth [facility]- [place], KYMonocytes (Bld) [#/Vol]0.61 10*3/uLOhiohealth [facility]- [place], KYMonocytes/100 WBC (Bld)9 %3 - 12 %[facility]- [place], KYPlatelet mean volume (Bld) [Entitic vol]9.9 fL8.1 - 13.5 fLOhiohealth Grove [facility]- [place], KYPlatelets (Bld) [#/Vol]NOT REPORTEDOhiohealth [facility]- [place], KYPlatelets (Bld) [#/Vol]370 10*3/uLOhiohealth [facility]- [place], KYRBC (Bld) [#/Vol]5.25 10*6/uL4.21 - 5.77 m/uLOhiohealth [facility]- [place], KYRBC morphology finding Nom (Bld)NOT REPORTEDOhiohealth [facility]- [place], KYSegmented neutrophils/100 WBC (Bld)48 %36 - 65 %[facility]- [place], KYSegs Absolute3.47[facility]- [place], KYWBC (Bld) [#/Vol]7.1 10*3/uLWvumedicine [facility]- [place], KYWBC (Bld) [#/Vol]0.0 10*3/uL0.0 per 100 WBCWvumedicine [facility] Health- [place], KYWBC MorphologyNOT REPORTEDOhiohealth [facility]- [place], PEDROCardiacon [id number] [Mass/Vol]233 mg/dLHigh(<200)[facility] Work Phone: Comment on above:Note: Cholesterol Guidelines:<200 Bicupdven810-478 Borderline>240 UndesirableResponsible Observer: CEEV AUTOFILE (3003)Triglyceride [Mass/Vol]138 mg/dL(<150)[facility] Work Phone: Comment on above:Note: Triglyceride Guidelines:<150 Adydzqost481-387 Mbwhugrmhd967-136 High>499 Very highBasedon AHA Guidelines for fasting triglyceride, May 2012.Responsible Observer: CEEV AUTOFILE (3003) Hematologyon 61-71-3280Sjwktbvpe/100 WBC (Bld)1 %(0-2)[facility] Work Phone: Comment on above:Note: Responsible Observer: XNV AUTOFILE (3018)Eosinophils (Bld) [#/Vol]0.25 10*3/uL(0.00-0.44)[facility] Work Phone: Comment on above:Note: Responsible Observer: XNV AUTOFILE (3018)Eosinophils/100 WBC (Bld)4 %(1-4)[facility] Work Phone: Comment on above:Note: Responsible Observer: XNV AUTOFILE (3018)Hematocrit (Bld) [Volume fraction]48.5 %(40.7-50.3)[facility] Work Phone: Comment on above:Note: Responsible Observer: XNV AUTOFILE (3018)Hemoglobin (Bld) [Mass/Vol]16.0 g/dL(13.0-17.0)[facility] Work Phone: Comment on above:Note: Responsible Observer: XNV AUTOFILE (3018)Lymphocytes (Bld) [#/Vol]2.73 10*3/uL(1.10-3.70)[facility] Work Phone: Comment on above:Note: Responsible Observer: XNV AUTOFILE (3018)Lymphocytes/100 WBC (Bld)38 %(24-43)[facility] Work Phone: Comment on above:Note: Responsible Observer: XNV AUTOFILE (301)MCH (RBC) [Entitic mass]30.5 pg(25.2-33.5)[facility] Work Phone: Comment on above:Note: Responsible Observer: XNV AUTOFILE (3017)MCV (RBC) [Entitic vol]92.4 fL(82.6-102.9)[facility] Work Phone: Comment on above:Note: Responsible Observer: XNV AUTOFILE (3017)Monocytes (Bld) [#/Vol]0.61 10*3/uL(0.10-1.20)[facility] Work Phone: Comment on above:Note: Responsible Observer: XNV AUTOFILE (3017)Monocytes/100 WBC (Bld)9 %(3-12)[facility] Work Phone: Comment on above:Note: Responsible Observer: XNV AUTOFILE (3017)Platelets (Bld) [#/Vol]NOT REPORTEDHealth Critical access hospital Work Phone: Platelets (Bld) [#/Vol]370 10*3/uL(138-453)[facility] Work Phone: Comment on above:Note: Responsible Observer: XNV AUTOFILE (3017)RBC (Bld) [#/Vol]5.25 10*6/uL(4.21-5.77)[facility] Work Phone: Comment on above:Note: Responsible Observer: XNV AUTOFILE (3017)RBC morphology finding Nom (Bld)NOT REPORTEDBro[facility] Hospital Work Phone: WBC (Bld) [#/Vol]0.0 per_100_WBC(0.0)[facility] Work Phone: Comment on above:Note: Responsible Observer: XNV AUTOFILE (3018)WBC (Bld) [#/Vol]7.1 10*3/uL(3.5-11.3)[facility] Work Phone: Comdzru on above:Note: Responsible Observer: XNV AUTOFILE (3018)Metabolic Panelon 26-65-0659Uwiebfv [Mass/Vol]4.4 g/dL(3.5-5.2) [facility] Work Phone: Comment on above:Note: Responsible Observer: CEEV AUTOFILE (3003)ALT [Catalytic activity/Vol]43 U/LHigh(5-41)[facility] Work Phone: Comment on above:Note: Responsible Observer: CEEV AUTOFILE (3003)Anion gap [Moles/Vol]12 mmol/L(9-17)[facility] Work Phone: Comment on above:Note: Responsible Observer: CEEV AUTOFILE (3003)AST [Catalytic activity/Vol]37 U/L(<40)[facility] Work Phone: Comment on above:Note: Responsible Observer: CEEV AUTOFILE (3003)Bilirubin [Mass/Vol]0.38 mg/dL(0.3-1.2)[facility] Work Phone: Comment on above:Note: Responsible Observer: CEEV AUTOFILE (3003)Calcium [Mass/Vol]9.7 mg/dL(8.6-10.4)[facility] Work Phone: Comment on above:Note: Responsible Observer: CEEV AUTOFILE (3003)Chloride [Moles/Vol]100 mmol/L(98-107)[facility] Work Phone: Comment on above:Note: Responsible Observer: CEEV AUTOFILE (3003)CO2 [Moles/Vol]27 mmol/L(20-31)[facility] Work Phone: Comment on above:Note: Responsible Observer: MARIEV AUTOFILE (3003)Creatinine [Mass/Vol]1.28 mg/dLHigh(0.70-1.20)[facility] Work Phone: Comment on above:Note: Responsible Observer: CEEV AUTOFILE (3003)Glucose [Mass/Vol]77 mg/dL(70-99)[facility] Work Phone: Comment on above:Note: Responsible Observer: CEEV AUTOFILE (3003)Potassium [Moles/Vol]3.9 mmol/L(3.7-5.3)[facility] Work Phone: Comment on above:Note: Responsible Observer: MARIEV AUTOFILE (3003)Protein [Mass/Vol]7.3 g/dL(6.4-8.3)[facility] Work Phone: Comment on above:Note: Responsible Observer: MARIEV AUTOFILE (3003)Sodium [Moles/Vol]139 mmol/L(135-144)[facility] Work Phone: Comment on above:Note: Responsible Observer: MARIEV AUTOFILE (3003)Urea nitrogen [Mass/Vol]9 mg/dL(6-20)[facility] Work Phone: Comment on above:Note: Responsible Observer: DIANA AUTOFILE (3003)Otheron 53-99-2710Iblyysjgs Probe, UrNegative(NEG)[facility] Work Phone: Comment on above:Note: CHLAMYDIA TRACHOMATIS DNA not detected by nucleic acid amplification.This [...] ofpositive results by an alternative nucleic acid target.ResponsibleObserver: VCVYECardiome Pharma AUTOFILE (5134)Gonorrhea Probe, Ur Negative(NEG)[facility] Work Phone: Comment on above:Note: NEISSERIA GONORRHOEAE DNA not detected by nucleic acid amplification.This [...] ofpositive results by an alternative nucleic acid target.ResponsibleObserver: VCVYEIG AUTOFILE (4859)Performing Lab:see note [facility] Work Phone: Comment on above:Note: [facility] [address] [place] [id number] [facility] [address] Reported PhysiciansSee [facility] Work Phone: Comment on above:Note: Reported Physicians:Ordering: Escobar GomezAttending: JasonNeliieReferring: Jason, NeliieSource:.URINEBro[facility] Work Phone: Comment on above:Note: Responsible Observer: ZAC OKEEFE ([id number])Trich Vag, MolecularNegative(NEG)[facility] Work Phone: Comment on above:Note: T. vaginalis DNA not detectedResults should be interpreted in conjunction with other clinical data.This test is intended for medical purposes only and is not valid for theevaluation of suspected sexual abuse or for other forensic purposes.This test has not been evaluated in women or in patients less than 16years of age.Responsible Observer: DANTE QURESHI (189)(cont.)See NoteBrooks Hospital Work Phone: Comment on above:Note: Average GFR for 30-39 years old:107 mL/min/1.73sq mChronic Kidney Disease:<60 mL/min/1.73sq mKidney failure:<15 mL/min/1.73sq meGFR calculated using average adult body mass. Additional eGFR calculatoravailable at:http://www.Edenbee.com.Jelly HQ/multiple_crcl_2012.htmResponsible Observer: DIANA A UTOFILE (3003)Abs. Basophil0.05 k/uL(0.00-0.20)[facility] Work Phone: Comment on above:Note: Responsible Observer: XNV AUTOFILE (3018)Abs.Imm.Granulocyte<0.03 k/uL(0.00-0.30)[facility] Work Phone: Comment on above:Note: Responsible Observer: XNV AUTOFILE (3018)Abs.Neutrophil (Seg)3.47 k/uL(1.50-8.10)[facility] Work Phone: Comment on above:Note: Responsible Observer: XNV AUTOFILE (3018)Albumin/Glob Ratio1.5(1.0-2.5)[facility] Work Phone: Comment on above:Note: Responsible Observer: CEEV AUTOFILE (3003)Alkaline Phos71 U/L(40-129)[facility] Work Phone: Comment on above:Note: Responsible Observer: CEEV AUTOFILE (3003)Auto Diff PerformedNOT REPORTEDBro[facility] Hospital Work Phone: BUN/CRE RatioNOT REPORTED(9-20)[facility] Work Phone: Cholesterol,HDL60 mg/dL(>40)[facility] Work Phone: Comment on above:Note: HDL Guidelines:<40 Mbrmbofuqpj98-04 Borderline>59 DesirableResponsible Observer: CEEV AUTOFILE (3003)Cholesterol,TGA615 mg/dLHigh(0-130)[facility] Work Phone: Comment on above:Note: LDL Guidelines:<100 Cboptbnnw137-768 Near to/above Rxwqhsbhy593-816 Borderline>159 UndesirableDirect (measured) LDL and calculated LDL are not interchangeable tests.Responsible Observer: CEEV AUTOFILE (3003)Cholesterol,VLDLNOT REPORTED mg/dL(1-30)[facility] Work Phone: Cholesterol.total/Cholesterol in HDL [Mass ratio]3.9 {ratio}(<5)[facility] Work Phone: Comment on above:Note: Responsible Observer: CEEV AUTOFILE (3003)Erythrocyte distribution width (RBC) [Ratio]12.4 %(11.8-14.4) [facility] Work Phone: Comment on above:Note: Responsible Observer: XNV AUTOFILE (3018)GFR, Amer>60 mL/min(>60)[facility] Work Phone: Comment on above:Note: Responsible Observer: CEEV AUTOFILE (3003)GFR,non Amer>60 mL/min(>60)[facility] Work Phone: Comment on above:Note: Responsible Observer: CEEV AUTOFILE (3003)HCV Genotype, GZN5aNezersBrooks Hospital Work Phone: Comment on above:Note: (NOTE)INTERPRETIVE INFORMATION: Hepatitis C GenotypingHepatitis C Viral RNA is tested using reverse transcriptionpolymerase chain reaction (RT-PCR) to amplify a specific portionof the 5' untranslated region (5' UTR) of the viral genome. Theamplified nucleic acid is sequenced bi-directionally usingdye-terminator chemistry ([employer]). Sequencing data is compared to adatabase of [...] Type 1.Test developed and characteristics determined by [facility]. See Compliance Statement B: Gather/CSPerformed by [facility],[address] [place] [address] gjo.Gather, Remi Harman MD, Lab. DirectorResponsible Observer: VALENTIN MODI (0603)HCV RNA,Quant,PCRSee NoteHealth Critical access hospital Work Phone: Comment on above:Note: Specimen Description .PLASMASpecial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
[2025-06-15 16:50] VITALS: BP 121/82; PULSE 86; TEMP 36.5; O2SAT 98; BMI 21.8
--- NOTE | 2025-06-15 17:42 | ED.GENADUL1 ---
HPI HPI - General Adult General Chief complaint: Headache Stated complaint: HEADACHE Time Seen by Provider: 06/15/25 16:59 Source: patient Mode of arrival: walk-in History of Present Illness HPI narrative: The patient 40 years old male presented to the ER because he needs some help with his mental health he mentioned that he is not suicidal or homicidal but he is feeling overwhelmed And he was just discharged from [facility] after being evaluated for migraine Related Data Home Medications ?Medication ?Instructions ?Recorded ?Confirmed buprenorphine 8 mg-naloxone 2 mg 1 film sublingual BID 12/17/24 06/15/25 sublingual film (Suboxone) bupropion HCl 150 mg 24 hr tablet, 150 mg PO DAILY 12/17/24 06/15/25 extended release fluoxetine 20 mg capsule 20 mg PO DAILY 12/17/24 06/15/25 quetiapine 50 mg tablet,extended 50 mg PO DAILY 06/15/25 06/15/25 release 24 hr (Seroquel XR) Allergies Allergy/AdvReac Type Severity Reaction Status Date / Time No Known Drug Allergies Allergy Verified 06/15/25 17:04 Opioid HPI Opioid Management Most Recent Opioid Data: Last Pain Scale 4 Today, 16:50 Review of Systems ROS Status of ROS 10 or more systems reviewed and unremarkable except as noted in history and below PFSH PFSH Social History Little interest or pleasure in doing things: not at all Feeling down, depressed, or hopeless: not at all Exam Narrative Exam Narrative: Nurses notes and vital signs reviewed and patient is not hypoxic. General: Well-appearing and in no apparent distress. Skin: Warm, dry, no pallor noted. No rash. Head: Normocephalic, atraumatic. Neck: Supple, non-tender. Eye: Pupils are equal, round and EOMI. No scleral icterus. Ears, Nose, Mouth, and Throat: TM are clear, no nasal mucosal hypertrophy. Oral mucosa is moist, no posterior oropharynx erythema, uvula is mid-line Cardiovascular: Regular Rate and Rhythm without murmur, gallop or rub. Respiratory: No accessory muscle use or respiratory distress. Lungs are clear to auscultation, no wheezing, rales or rhonchi Chest Wall: no tenderness Back: No midline thoracic or lumbar vertebral tenderness. No CVA tenderness Musculoskeletal: normal ROM, no calf or popliteal tenderness, no lower extremity edema/swelling GI: Abdomen is soft, non-distended. Normal bowel sounds. No masses appreciated. No tenderness to palpation. No rebound, guarding, or rigidity noted. Neurological: A&O x4. No cranial nerve dysfunction observed. No truncal ataxia. Moves all extremities. Sensation intact. Psychiatric: Cooperative and interactive. Normal mood and affect. Constitutional Vital Signs, click to edit/add: Last Vital Signs Temp 97.7 F 06/15/25 16:50 Pulse 86 06/15/25 16:50 Resp 16 06/15/25 16:50 BP 121/82 06/15/25 16:50 Pulse Ox 98 06/15/25 16:50 O2 Del Method Room Air 06/15/25 16:50 Course Vital Signs Vital signs: Vital Signs Temperature 97.7 F 06/15/25 16:50 Pulse Rate 86 06/15/25 16:50 Respiratory Rate 16 06/15/25 16:50 Blood Pressure 121/82 06/15/25 16:50 Pulse Oximetry 98 06/15/25 16:50 Oxygen Delivery Method Room Air 06/15/25 16:50 Temperature 97.7 F 06/15/25 16:50 Pulse Rate 86 06/15/25 16:50 Respiratory Rate 16 06/15/25 16:50 Blood Pressure 121/82 06/15/25 16:50 Pulse Oximetry 98 06/15/25 16:50 Oxygen Delivery Method Room Air 06/15/25 16:50 Medical Decision Making [facility] Narrative Medical decision making narrative: The patient does have some headache right now but he initially wanted some more mental evaluation and help he is not suicidal or homicidal but he mentioned that he is just feeling overwhelmed and he needs more help to get inpatient management The patient friend came after a few minutes and she states that she will take him to [place] where he is getting to be evaluated and he does not want to wait anymore The patient is not suicidal or homicidal he is good to be discharged as long as he can go to get more care and he assures me that he will get from here to another hospital to be evaluated Discharge Plan Discharge Chief Complaint: Headache Clinical Impression: Headache Patient Disposition: Home, Self-Care Time of Disposition Decision: 17:43 Condition: Good Prescriptions / Home Meds: No Action buprenorphine-naloxone [Suboxone] 8-2 mg film 1 film sublingual BID bupropion HCl 150 mg tablet extended release 24 hr 150 mg PO DAILY fluoxetine 20 mg capsule 20 mg PO DAILY quetiapine [Seroquel XR] 50 mg tablet extended release 24 hr 50 mg PO DAILY Print Language: Israeli Instructions: Tension Headache (ED) Referrals: Rell Guy MD [Primary Care Provider, Family Practice] - 1 week Discharge Date/Time: 06/15/25 17:48
== END 2025-06-15 17:48 | disposition home or self-care (01) ==
PROVIDERS: Emergency Provider Emergency Medicine; PCP Family Medicine
DX: R51.9 Headache, unspecified (principal)
CPT/HCPCS: 80053; 80307; 80320; 99281

== ENCOUNTER 2025-06-23 15:47 | Outpatient (REF) | payer OTHER, SELFPAY ==
--- OUTSIDE RECORDS SUMMARY | 2018-03-21 08:20 | XMS_ITS | Continuity of Care Document ---
Author Organization [facility] Address [address] [place] [phone] Phone Care Team Providers Care Utilization Management Um Nurse Name Role Phone Aidan Reynoso DDS Unavailable Unavailable Procedures Procedure Date Bitewings Two Films Intraoral Xray Periapical Single First F ilm Intraoral Xray Periapical Each Add'l Cyrus m Panoramic-Maxilla & Mandible Film Comprehensive Oral Eval New/Estab Exempt from sealant measure Dental Caries Positive Continue With Treatment Plan Advance Directives Directive Yes / No Effective Date File Name No Information Encounters Encounter Description Practice Location Reason(s) For Visit Diagnoses Date Provider [facility], [address] [place] [address], [id number], [place] tel:[phone] [facility] [place] Radiograph(s) Dental Xray(s)Encounte r for dental exam and cleaning w abnormal findingsOHO Encounter for dental exam [address] [place], [place], [id number], [place]. tel:[phone] Family History Family Member Type Diagnosis Age At Onset No Information Payers Payer name Insurance type Covered alliance party ID Authoriza tion(s) [employer] Medicaid Dental [id number] ODJFS [facility] [id number] Social History Type Description Quantity Date Captured Comments Sex Male Smoking Status No Information Vital Signs Date / Time: Height Weight BMI Pulse Rate Blood Pressure Temperature Respiratory Rate Body Surface Area Head Circumference Head Circ. Percentile Wt./Festus. Percentile BMI percentile Pulse Ox Inhaled Ox 1:28 PM 110/78 mm[Hg] Chief Complaint And Reason For Visit No Information History Of Present Illness Encounter Date Complaint History Of Prese nt Illness No Information Instructions Date Instruction Additional Infor mation No Information Assessments Type Assessment Date No Information
--- OUTSIDE RECORDS SUMMARY | 2024-10-02 09:15 | XMS_ITS ---
Author Organization [facility] in [place] Address [address] [place] [address] Care Team Providers Care Environmental Sampling Technician Name Role Phone Ezekiel Guy Primary Care Provider REASON FOR VISIT laryngitis Encounters Encounter Location Date Provider Diagnosis [facility] [address] [place] [address] 10/02/2024 Ezekiel Guy Plan Of Treatment No Information Progress Notes * BERTINLeonardo ZAVALA WDOB:1984 (40 yo M)Acc No.[id number]:10/02/2024 UNLOCKED PROGRESS NOTE Progress Note Patient: Leonardo PICKENS :?Rell Guy (MARIA ELENA), MDDOB:1985???Age: 39 Y???Sex:MaleDate:10/02/2024Phone:[phone]:[address] [facility] [address] [place] [address] Subjective: * Chief Complaints: * 1 . Laryngitis. * Medical History: Objective: * Vitals: Assessment: Plan: * Treatment: * * Electronic signature of Ezekiel Guy MD, [id number] on 06/23/2025 at 03:52 PM EST Sign off status: PendingVisit Status:?N/S N/C (No Show/No Charge) * Provider: Ciro Guy MD (TTC) Date: 0 10/02/2024 Generated for Printing/Faxing/eTransmitting on:?06/23/2025 03:52 PM EST
--- OUTSIDE RECORDS SUMMARY | 2024-11-19 10:00 | XMS_ITS ---
Author Organization [facility] in [place] Address [address] [place] [address] Care Team Providers Care Automatic Grinding Machine Operator Name Role Phone Ezekiel Guy Primary Care Provider REASON FOR VISIT CYST ON BRAIN Encounters Encounter Location Date Provider Diagnosis [facility] [address] [place] [address] 11/19/2024 Ezekiel Guy Plan Of Treatment No Information Progress Notes * Leonardo RAND WDOB:1984 (40 yo M)Acc No.[id number]:11/19/2024 UNLOCKED PROGRESS NOTE Progress Note Patient: Leonardo PICKENS :?Rell DEL ROSARIO), MDDOB:1985???Age: 39 Y???Sex:MaleDate:11/19/2024Phone:[phone]:[address] [address] Subjective: * Chief Complaints: * 1 . CYST ON BRAIN. * Medical History: Objective: * Vitals: Assessment: Plan: * Treatment: * * Electronic signature of Ezekiel Guy MD, [id number] on 06/23/2025 at 03:51 PM EST Sign off status: PendingVisit Status:?N/S N/C (No Show/No Charge) * Provider: Ciro Guy MD (TTC) Date: 0 11/19/2024 Generated for Printing/Faxing/eTransmitting on:?06/23/2025 03:51 PM EST
--- OUTSIDE RECORDS SUMMARY | 2024-12-30 04:46 | XMS_ITS | Continuity of Care Document ---
Author Organization [facility] Address [address] [place] [address] Phone Care Team Providers Care [employer] Name Role Phone Cheli Obrien Unavailable Unavailable Allergies, Adverse Reactions, Alerts Substance Reaction Status Criticality No Known Allergies Active No Inform ation Medications Medication Instructions Dosage Effective Dates (start - stop) Status Comments Abilify 20 mg tablet take 1 tablet by or al route every bedtime 20 MG - Active Procedures Procedure Date Acute Detox Patient Care Provider Acute Detox Patient Care Provider COVID-19 Antigen Test DRUG TEST PRSMV DIR OPT OBS Acute Detox Patient Care Provider DRUG TEST PRSMV DIR OPT OBS Acute Detox Patient Care Provider Acute Detox Patient Care Provider Acute Detox Patient Care Provider Acute Detox Patient Care Provider Alcohol and/or drug services- Acute Deto x Alcohol and/or drug services- Acute Deto x Alcohol and/or drug services- Acute Deto x Alcohol and/or drug services- Acute Deto x DRUG TEST PRSMV DIR OPT OBS Alcohol and/or drug services- Acute Deto x Advance Directives Directive Yes / No Effective Date File Name No Information Encounters Encounter Description Practice Location Reason(s) For Visit Diagnoses Date Provider Providers Copied on Encounter [facility], [address] [place] [address], [id number] , [place] tel:[phone] [facility]ox No Information Camille Zunigaissa. [address], [place], [id number] , [place]. tel: [phone] [facility], [address], [place], [id number] , [place] tel: [phone] [facility] substance abuse (chief complaint) Opioid dependence with withdrawalAmphetamin e or other stimulant withdrawalHepatitis C 0 2 Thalia Rodriguez. [address] [place], [address], [place]. tel: [phone] [facility], [address], [place], [id number] , [place] tel: [phone] [facility] Amphetamine or other stimulant withdrawalOpioid dependence with withdrawalHepatitis C 0 2 Thalia Rodriguez. [address] [place], [address], [place]. tel: [phone] [facility], [address], [place], [id number] , [place] tel: [phone] [facility] Amphetamine or other stimulant withdrawalEncounter For Screening For Covid-19 0 9 2 Thaliaxander Rodriguez. [address] [place], [address], [place]. tel: [phone] [facility], [address], [place], [id number] , [place] tel: [phone] [facility] Opioid dependence with withdrawal December-0 8-202 0 Pavlock DO Max. [address], [place], [id number] , [place]. tel: [phone] [facility], [address], [place], [id number] , [place] tel: [phone] [facility] Opioid dependence with withdrawal December-0 7-202 0 Pavlock DO Max. [address], [place], [id number] , [place]. tel: [phone] [facility], [address], [place], [id number] , [place] tel: [phone] [facility] suboxone dependence (chief complaint) Opioid dependence with withdrawal May-0 6-202 0 Benny Palma. [address], [place], [id number] , [place]. tel: [phone] [facility], [address], [place], [id number] , [place] tel: [phone] [facility] Opioid dependence with withdrawal May-0 5-202 0 Pavlock DO Max. [address], [place], [id number] , [place]. tel: [phone] [facility], [address], [place], [id number] , [place] tel: [phone] [facility] Spine Care (chief complaint) Opioid dependence with withdrawalSegmental and somatic dysfunction of cervical region Jimenez-0 8-201 8 Visci DO Terry. [address], [place], [id number] , [place]. tel: [phone] [facility], [address], [place], [id number] , [place] tel: [phone] [facility] Opioid dependence with withdrawal Jimenez-0 7-201 8 Visci DO Terry. [address], [place], [id number] , [place]. tel: [phone] [facility], [address], [place], [id number] , [place] tel: [phone] [facility] Opioid dependence with withdrawal Jimenez-0 6-201 8 Visci DO Terry. [address], [place], [id number] , [place]. tel: [phone] [facility], [address], [place], [id number] , [place] tel: [phone] [facility] Opioid dependence with withdrawal Jimenez-0 5-201 8 Visci DO Terry. [address], [place], [id number] , [place]. tel: [phone] [facility], [address], [place], [id number] , [place] tel: [phone] [facility] opioid abuse (chief complaint) Opioid dependence with withdrawal Jimenez-0 4-201 8 Laura Pritchett. [address], [place], [id number] , [place]. tel: [phone] [facility], [address], [place], [id number] , [place] tel: [phone] [facility] Opioid dependence with withdrawal Jimenez-0 4-201 8 Visci DO Terry. [address], [place], [id number] , [place]. tel: [phone] [facility], [address] [place] [address], [id number] , [place] tel: [phone] [facility] Opioid dependence with withdrawal Jimenez-0 3-201 8 Visci DO Terry. [address], [place], [id number] , [place]. tel: [phone] [facility], [address], [place], [id number] , [place] tel: [phone] [facility] Opioid dependence with withdrawal Jaylen-0 1-190 0 Pavlock DO Max. [address], [place], [id number] , [place]. tel: [phone] Family History Family Member Type Diagnosis Age At Onset No Information Payers Payer name Insurance type Covered democrat ID nAder ahmadi(s) BH [employer] Medicaid [id number] Social History Type Description Quantity Date Captured Comments Sex Male Smoking Status No Information Sexual Orientation Choose not to disclose Gender Identity Male Chief Complaint And Reason For Visit No Information Reason For Referral Reason For Referral No Information Plan Of Treatment Date Type Action Status Future Order: Lab Order CBC With Differential/Platelet ([id number]), Sent on: Sent Future Order: Lab Order Comp. Me tabolic Panel (14) ([id number]), Collected on: , Sent on: Sent Future Order: Lab Order HCV Anti body Reflex To DANYELL ([id number]), Sent on: Sent Future Order: Lab Order Hepatic Function Panel (7) ([id number]), Sent on: Sent History Of Present Illness Encounter Date Complaint History Of Prese nt Illness substance abuse The symptoms are reported as being moderate. The symptoms occur constantly. He states the symptoms are acute and are of new onset. AoD Assessment reviewed. Patient is a 36 year old male with hx of substance use disorder who reports for detox from amphetamines. He reports that he was using speed for the past 2 weeks. He states that he was also smoking 2 joints a day that were laced with fentanyl for the past 2 weeks. His last use was 12/23/21. He reports that he is positive for Hepatitis C. suboxone dependence 34 year old male checked in to detox yesterday and reports last using suboxone 2 days ago. He typically takes 2 strips/day and has been using suboxone for 2 years and opiates for 19 years. He last attended detox in 2018.surgical hx- noneallergies- nonemeds- abilifytobacco- 1/2 ppdalcohol- noneplans upon completing detox- counseling Spine Care Objective:Taut a nd tender sub-occipital muscles, cervical paravertebral musculature, tight cervicobrachial muscles, tight trapezius muscle, and intrascapular muscles. Leg length (PD) Rt. inch. Somatic dysfunction & hypomobile subluxation Levels: C1-H0Ovwxdiafml/Plan:Plan and todays treatment: Discussed treatment plan and options with the patient. Answered all questions. Low force (SMT). Torque Release Technique at levels: C1 RAuriculotherapy.Frequency of care: Treatment 2-3x while in detox.Goals: Reduce physical signs of subluxation, reduce symptomatology and increase patient comfort during detox. opioid abuse 32 y/o male presented to the detox center yesterday 01/19/18. Physical exam being performed. Medical hx- Hep C+, bipolar and anxiety. Was prescribed Wellbutrin in the past but never started taking it. Allergies- NKAMedications- none (is on suboxone but is weaning off of that)Smoker- <1/2 ppd x10 yearsAlcohol- noneillicit drugs- suboxone (last use 5/30/18) crack (smoke) daily use as much as possible, last use was saturday01/18/18, he started when he was 17. Surgical hx- none Functional Status Date Functional Assessmen t No Information Instructions Date Instruction Additional Infor jayla Encourage PO fluids - Related to Amphetamine or other stimulant withdrawal Assessments Type Assessment Date No Information Patient Care Teams Name Effective Dates (start - stop) Status Members No Information
--- OUTSIDE RECORDS SUMMARY | 2025-06-13 09:54 | XMS_ITS | Encounter Summary ---
Author Organization [facility] tem Address [id number] [address] 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 Name Role Phone Randy Guy MD Primary Care Provider [phone] Reason for Referral * Misc (Routine) - Pending ReviewSpecialtyDiagnoses / ProceduresReferred By ContactReferred To Contact Procedures Discharge Follow-Up Sharon Lepe APRN-CNP [address] [place] [address] Phone: tel: fax: Referral IDStatusReasonStart DateExpiration DateVisits RequestedVisits [id number] * Misc (Routine) - Pending ReviewSpecialtyDiagnoses / ProceduresReferred By ContactReferred To Contact Diagnoses ADILSON (acute kidney injury) Procedures Follow-up with primary care provider Sharon Lepe APRN-CNP [address] [place] [address] Phone: tel: fax: Referral IDStatusReasonStart DateExpiration DateVisits RequestedVisits [id number] * Misc (Routine) - Pending ReviewSpecialtyDiagnoses / ProceduresReferred By ContactReferred To Contact Procedures Adult diet Sharon Lepe APRN-CNP [address] [place] [address] Phone: tel: fax: Referral IDStatusReasonStart DateExpiration DateVisits RequestedVisits [id number] [id number] * Consultation (Routine) - Pending ReviewSpecialtyDiagnoses / ProceduresReferred By ContactReferred To ContactNeurosurgery Diagnoses Acute nonintractable headache, unspecified headache type Sharon Lepe APRN-CNP [address] [place] [address] Phone: tel: fax: Wilver Munroe MD [address] [address] Phone: tel: fax: Referral IDStatusReasonStart DateExpiration DateVisits RequestedVisits [id number] Review Specialty Services Required * Consultation (Routine) - Pending ReviewSpecialtyDiagnoses / ProceduresReferred By ContactReferred To ContactGastroenterology Diagnoses Abdominal pain, vomiting, and diarrhea Sharon Lepe APRN-CNP [address] [place] [address] Phone: tel: fax: Krishna Gray MD [address] [facility], [address] [place] [address] Phone: tel: fax: Referral IDStatusLucho DateExpiration DateVisits RequestedVisits [id number] Review Specialty Services Required Reason for Visit * ReasonCommentsNauseaHeadachePatient c/o nausea and vomiting for 2-3 weeks. Patient states he is concerned about his loss of appetite and weight loss. Patient also c/o headache that started 2 days ago. Patient states pain starts in the back on neck * Auth/CertSpecialtyDiagnoses / ProceduresReferred By ContactReferred To Contact Diagnoses ADILSON (acute kidney injury) [facility] - Emergency [address] [place] [address] Phone: tel: fax: Referral IDStatusSugeyasonTeague DateExpiration DateVisits RequestedVisits [id number] Encounter Details DateTypeDepartmentCare Team (Latest Contact Info)Pxycmruzncs29/26/2025 10:54 AM EDT - 06/14/2025 2:46 PM EDTHospital Encounter [facility] - Acute Care [address] [place] [id number] Brock Jay, [address] [place] [address] Oumar Salinas MD [address], [facility] [address] [place] [address] Elizabeth Mendenhall MD [address], [facility] [address] [place] [address] AIDLSON (acute kidney injury) (Primary Dx); Acute nonintractable headache, unspecified headache type; Abdominal pain, vomiting, and diarrhea Discharge Disposition: Home Social History Tobacco UseTypesPacks/DayYears UsedDateSmoking Tobacco: Some Days Vaping/E-cigarettesSmokeless Tobacco: Current Tobacco Cessation:Ready to Q uit: Not Asked; Counseling Given: Not Answered Alcohol UseStandard Drinks/WeekCommentsNot Currently0 (1 standard drink = 0.6 oz pure alcohol)ChildcareAnswerDate PiynrnaxLfnzsjdbcQkoikxc90/12/2019Employment AnswerDate CqmteojtFgthlyylgxMiqyjtp73/12/2019Hunger ScreeningAnswerDate RecordedWithin the past 12 months we worried whether our food would run out before we got money to buy more.Never True06/14/2025Within the past 12 months the food we bought just didn't last and we didn't have money to get more.Never True06/14/2025Purpose - LifeAnswerDate RecordedPurpose and direction in life Viaflgq2009/29/2020ex and Gender InformationValueDate RecordedSex Assigned at RoesaVpbj47/26/2022 2:51 PM EDTLegal IpoJrsp1003/24/2015 11:35 AM EDTGender ShjntipgIyjs95/26/2022 2:51 PM EDTSexual VebrbylvbhzWirbvavg20/26/2022 2:51 PM EDTdocumented as of this encounter Last Filed Vital Signs Vital SignReadingTime TakenCommentsBlood Mrgomshv039/7806/14/2025 11:48 AM EDT Kttlw145606/14/2025 11:48 AM UJEUichmjmxxsm23.8 ??C (98.2 ??F)06/14/2025 11:48 AM EDTRespiratory Tlpx9765 11:48 AM EDTOxygen Ltnoddlbnx11%06/14/2025 11:48 AM EDTInhaled Oxygen Concentration--Zbqyia79.6 kg (140 lb 3.2 oz)06/14/2025 4:09 AM QAPFrboxg241.6 cm (5' 6 )06/13/2025 4:42 PM EDTBody Mass Index22.63 06/13/2025 4:42 PM EDTdocumented in this encounter Functional Status documented as of this encounter Discharge Instructions * Appointments* Allison Regan - 06/14/2025 9:44 AM EDT YOUR SCHEDULED APPOINTMENTS Please make note of this in your schedule as to not miss or call to reschedule. Thank you! June 23 at 10:15am Hospital follow up with RANDY GUY MD PCP - General Family Medicine [phone] [address] [facility] [address] Pt. should bring the following to appointment; Discharge paperwork Picture ID, Insurance card, co-pay, and all current medications in their bottles. Please provide a 24 hour notice for cancellation. Failure to do so will result in the practice declining to see pt. in the future. If you have insurance copay you must bring with you to the appointment. Please arrive about 15 minutes prior to appointment for check-in/registration. For NEW PATIENT APPOINTMENTS, please arrive 30 minutes early to complete new patient paperwork. For NEW patients, MD will not prescribe ferry terminal agent pain medication. documented in this encounter Medications at Time of Discharge MedicationSigDispense QuantityRefillsLast FilledStart DateEnd Date aspirin 81 mg chewable tablet Chew 1 tablet (81 mg total) and swallow as needed for headaches. buprenorphine-naloxone (SUBOXONE) 8-2 mg film Dissolve 1 Film on tongue in the morning. QUEtiapine (SEROquel) 50 mg tablet Take 1 tablet (50 mg total) by mouth nightly.documented as of this encounter H&P Notes * Elizabeth Mendenhall MD - 06/14/2025 9:00 AM EDT Images from the original note were not included. [facility] - ACUTE CARE [address] [facility] [address] Hospital Medicine History & Physical Patient: Leonardo Roach Date of : 1985 Room: PCP: RANDY GUY MD Admission date: 06/13/2025 10:54 AM Encounter date: 06/14/25 Hospital Day: 2 SUBJECTIVE Leonardo Roach is a 40 y.o. male who presents with nausea vomiting for the last 2-3 weeks. Patient also noted a headache that started 2 days ago. States his pain is in the back of his neck up through his head. Patient reports previous cyst in his brain. Stated he took aspirin at home for the headache with no relief. Has also been noting digestive issues for the past several years. Has a history of substance abuse, hepatitis-C. CT Brain negative. CT cervical spine negative. MRI brain negative. Lab work remarkable for sodium 131, creatinine 1.42, glucose 184, AST 100, ALT 183 aspirin 81 mg chewable tablet Chew 1 tablet (81 mg total) and swallow as needed for headaches. Yes Not In System Ref Prov buprenorphine-naloxone (SUBOXONE) 8-2 mg film Dissolve 1 Film on tongue in the morning. Yes Not In System Ref Prov QUEtiapine (SEROquel) 50 mg tablet Take 1 tablet (50 mg total) by mouth nightly. Yes Not In System Ref Prov Code Status: Full Code Past Medical History: Patient has no past medical history on file. Past Surgical History: Patient has no past surgical history on file. Family History: Patient's family history is not on file. Social History: Patient reports that he has been smoking vaping/e-cigarettes . He uses smokeless tobacco. He reports that he does not currently use alcohol. He reports that he does not currently use drugs. Review of Systems Constitutional: Negative for chills and fever. HENT: Negative for ear pain and sore throat. Eyes: Negative for pain and visual disturbance. Respiratory: Negative for cough and shortness of breath. Cardiovascular: Negative for chest pain and palpitations. Gastrointestinal: Positive for diarrhea, nausea and vomiting. Negative for abdominal pain. Genitourinary: Negative for dysuria and hematuria. Musculoskeletal: Positive for neck pain. Negative for arthralgias and back pain. Skin: Negative for color change and rash. Neurological: Positive for headaches. Negative for seizures and syncope. All other systems reviewed and are negative. OBJECTIVE BP 112/65 Pulse 72 Temp 36.6 ??C (97.9 ??F) (Oral) Resp 16 Ht 167.6 cm (5' 6 ) Wt 63.6 kg(140 lb 3.2 oz) SpO2 95% BMI 22.63 kg/m?? Temp: [36.6 ??C (97.9 ??F)-36.9 ??C (98.4 ??F)] 36.6 ??C (97.9 ??F) Pulse: [72-118] 72 Resp: [16-20] 16 BP: (95-142)/(58-76) 112/65 SpO2: [95 %-98 %] 95 % O2 Device: None (Room air) Intake/Output Summary (Last 24 hours) at 06/14/2025 1027 Last data filed at 06/13/2025 1246 Gross per 24 hour Intake 998.55 ml Output -- Net 998.55 ml Physical Exam Vitals and nursing note reviewed. Constitutional: General: He is not in acute distress. Appearance: He is well-developed. HENT: Head: Normocephalic. Right Ear: External ear normal. Left Ear: External ear normal. Nose: Nose normal. Eyes: Conjunctiva/sclera: Conjunctivae normal. Pupils: Pupils are equal, round, and reactive to light. Cardiovascular: Rate and Rhythm: Normal rate and regular rhythm. Heart sounds: Normal heart sounds. No murmur heard. Pulmonary: Effort: Pulmonary effort is normal. Breath sounds: Normal breath sounds. No wheezing. Abdominal: General: Bowel sounds are normal. Palpations: Abdomen is soft. There is no mass. Tenderness: There is no abdominal tenderness. Musculoskeletal: General: Normal range of motion. Cervical back: Normal range of motion. Lymphadenopathy: Cervical: No cervical adenopathy. Skin: General: Skin is warm and dry. Findings: No rash. Neurological: Mental Status: He is alert. Cranial Nerves: No cranial nerve deficit. Coordination: Coordination normal. Psychiatric: Behavior: Behavior normal. Medications Scheduled: enoxaparin (LOVENOX) injection, 40 mg, subcutaneous, Q24H LIZETH sodium chloride, 3 mL, intravenous, Q12H LIZETH Infusions: sodium chloride 0.9 %, 100 mL/hr, Last Rate: 100 mL/hr (06/14/25 0556) As Needed: acetaminophen alum-mag hydroxide-simeth cyclobenzaprine ondansetron sennosides-docusate sodium sodium chloride Allergies: Penicillin Labs Recent Results (from the past 24 hours) Extra Tubes Collection Time: 06/13/25 11:27 AM Narrative The following orders were created for panel order Extra Tubes. Procedure Abnormality Status --------- ------ Light Blue Top[[id number]] Final result Please view results for these tests on the individual orders. Light Blue Top Collection Time: 06/13/25 11:27 AM Result Value Ref Range Extra Tube Auto Resulted CBC auto differential Collection Time: 06/13/25 11:28 AM Result Value Ref Range WBC 4.7 4 - 11 x10E9/L RBC Count 4.36 4.1 - 5.7 X10E12/L Hemoglobin 13.1 13 - 17 g/dL Hematocrit 38.3 (L) 39 - 50 % MCV 88 80 - 100 fL MCH 30.1 27 - 34 pg MCHC 34.3 32 - 36 g/dL RDW 13.3 11.5 - 15 % Platelet Count 267 150 - 450 X10E9/L MPV 7.7 7 - 12 fL Neutrophils % 50.9 % Lymphocytes % 36.6 % Monocytes % 10.8 % Eosinophils % 1.3 % Basophils % 0.4 % Neutrophils Absolute (A) 2.4 1.5 - 6.6 10*3/uL Lymphocytes Absolute 1.7 1.0 - 3.5 10*3/uL Monocytes Absolute 0.5 0.0 - 0.9 10*3/uL Eosinophils Absolute 0.1 0.0 - 0.4 10*3/uL Basophils Absolute 0.0 0.0 - 0.2 10*3/uL Differential Type AUTOMATED DIFFERENTIAL Comprehensive metabolic panel Collection Time: 06/13/25 11:28 AM Result Value Ref Range SODIUM 131 (L) 134 - 146 mmol/L POTASSIUM 3.5 3.5 - 5.0 mmol/L CHLORIDE 95 (L) 98 - 109 mmol/L CARBON DIOXIDE 25 22 - 32 mmol/L ANION GAP 11 5 - 15 mmol/L BLOOD UREA NITROGEN 14 5 - 23 mg/dL CREATININE 1.42 (H) 0.70 - 1.20 mg/dL GLUCOSE 126 (H) 65 - 99 mg/dL CALCIUM 8.4 (L) 8.5 - 10.5 mg/dL TOTAL PROTEIN 6.7 6.0 - 8.0 g/dL ALBUMIN 3.8 3.2 - 5.3 g/dL ALKALINE PHOSPHATASE 53 39 - 130 U/L AST 100 (H) <=41 U/L ALT 183 (H) <=40 U/L BILIRUBIN,TOTAL 1.3 (H) 0.3 - 1.2 mg/dL EGFR Non-Race Dependent 64 >=60 ml/min/1.73sq.m Magnesium Collection Time: 06/13/25 11:28 AM Result Value Ref Range MAGNESIUM 2.1 1.8 - 2.6 mg/dL Comprehensive metabolic panel Collection Time: 06/13/25 1:38 PM Result Value Ref Range SODIUM 134 134 - 146 mmol/L POTASSIUM 3.8 3.5 - 5.0 mmol/L CHLORIDE 99 98 - 109 mmol/L CARBON DIOXIDE 26 22 - 32 mmol/L ANION GAP 9 5 - 15 mmol/L BLOOD UREA NITROGEN 13 5 - 23 mg/dL CREATININE 1.22 (H) 0.70 - 1.20 mg/dL GLUCOSE 151 (H) 65 - 99 mg/dL CALCIUM 8.1 (L) 8.5 - 10.5 mg/dL TOTAL PROTEIN 6.3 6.0 - 8.0 g/dL ALBUMIN 3.5 3.2 - 5.3 g/dL ALKALINE PHOSPHATASE 50 39 - 130 U/L AST 91 (H) <=41 U/L ALT 169 (H) <=40 U/L BILIRUBIN,TOTAL 1.2 0.3 - 1.2 mg/dL EGFR Non-Race Dependent 76 >=60 ml/min/1.73sq.m Comprehensive metabolic panel Collection Time: 06/14/25 4:48 AM Result Value Ref Range SODIUM 136 134 - 146 mmol/L POTASSIUM 3.9 3.5 - 5.0 mmol/L CHLORIDE 105 98 - 109 mmol/L CARBON DIOXIDE 22 22 - 32 mmol/L ANION GAP 9 5 - 15 mmol/L BLOOD UREA NITROGEN 16 5 - 23 mg/dL CREATININE 1.03 0.70 - 1.20 mg/dL GLUCOSE 184 (H) 65 - 99 mg/dL CALCIUM 8.2 (L) 8.5 - 10.5 mg/dL TOTAL PROTEIN 6.1 6.0 - 8.0 g/dL ALBUMIN 3.3 3.2 - 5.3 g/dL ALKALINE PHOSPHATASE 70 39 - 130 U/L AST 69 (H) <=41 U/L ALT 148 (H) <=40 U/L BILIRUBIN,TOTAL 0.4 0.3 - 1.2 mg/dL EGFR Non-Race Dependent >90 >=60 ml/min/1.73sq.m Magnesium Collection Time: 06/14/25 4:48 AM Result Value Ref Range MAGNESIUM 2.0 1.8 - 2.6 mg/dL CBC auto differential Collection Time: 06/14/25 4:48 AM Result Value Ref Range WBC 5.6 4 - 11 x10E9/L RBC Count 4.04 (L) 4.1 - 5.7 X10E12/L Hemoglobin 12.4 (L) 13 - 17 g/dL Hematocrit 35.9 (L) 39 - 50 % MCV 89 80 - 100 fL MCH 30.7 27 - 34 pg MCHC 34.5 32 - 36 g/dL RDW 13.3 11.5 - 15 % Platelet Count 258 150 - 450 X10E9/L MPV 8.4 7 - 12 fL Neutrophils % 82.8 % Lymphocytes % 11.5 % Monocytes % 5.3 % Eosinophils % 0.1 % Basophils % 0.3 % Neutrophils Absolute (A) 4.7 1.5 - 6.6 10*3/uL Lymphocytes Absolute 0.6 (L) 1.0 - 3.5 10*3/uL Monocytes Absolute 0.3 0.0 - 0.9 10*3/uL Eosinophils Absolute 0.0 0.0 - 0.4 10*3/uL Basophils Absolute 0.0 0.0 - 0.2 10*3/uL Differential Type AUTOMATED DIFFERENTIAL Extra Tubes Collection Time: 06/14/25 4:48 AM Narrative The following orders were created for panel order Extra Tubes. Procedure Abnormality Status --------- ------ Light Blue Top[[id number]] Final result Please view results for these tests on the individual orders. Light Blue Top Collection Time: 06/14/25 4:48 AM Result Value Ref Range Extra Tube Auto Resulted Radiology CT cervical spine without contrast Result Date: 06/13/2025 Narrative: History: Headache neck pain Technique: Multidetector spiral CT scan of cervical spine isperformed. Multiplanar reconstruction images are obtained. All CT scans at this facility use dose modulation, iterative reconstruction, and/or weight based dosing when appropriate to reduce radiationdose to as low as reasonably achievable. Comparison: None available. Findings: There is no evidenceof fracture through the cervical vertebrae. The posterior elements are intact. No bony fragments are seen in the spinal canal. Sagittal and axial images demonstrate normal vertebral heights. There isno evidence of compression fractures or malalignment. The odontoid process is intact. No significant prevertebral soft tissue abnormality is identified. IMPRESSION: No evidence of fractures, malalignment or acute bony pathology. Finalized by Louie Mahajan MD on 06/13/2025 12:[address] brain without contrast Result Date: 06/13/2025 Narrative: Examination: Noncontrast brain CT Date of Exam:06/13/2025 Clinical History:Anterior headache Comparison:01/06/2024 Procedure: Multi-detector CT performed through the brain without IV contrast. Automatic exposure control (AEC) was utilized. Findings: There is no intracranial hemorrhage, extra-axial fluid collection, mass effect, or hydrocephalus. Swann-white matter differentiation is appropriate. Infarcts may be occult on CT, but grossly no acute infarct identified There is no midline shift. Retrocerebellar posterior fossa cyst or jason cisterna magna stable. The sinuses are clear. IMPRESSION: 1. No acute findings. Sinuses are clear. All CT scans at this facility use dose modulation,iterative reconstruction, and/or weight based dosing when appropriate to reduce radiation dose to as low as reasonably achievable. 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 DISCHARGE ASSESSMENT & PLAN Home, stable, continue meds as ordered DISCHARGE INSTRUCTION Disposition: Home Condition: Stable Activity: activity as tolerated Diet: Adult diet Regular Texture; Cardiac Adult diet Follow up: RANDY GUY MD within 7-14 days. GI Neurosurgery Labs/Imaging/Pathology: none Chart reviewed. Admission orders placed. Home medications reconciled. VTE chemoprophylaxis: enoxaparin. GI prophylaxis: not indicated. PT/OT to evaluate and treat. Not indicated DC planning: home. Medically Ready for Discharge: Anticipated Today CRISTI Dutta 06/14/2025 10:27 AM [facility] Internal Medicine 7AM-7PM & 7PM-7AM: EpicChat or page through On-Call F[employer]. CRISTI Dutta 06/14/25 1332 I, Elizabeth Mendenhall MD, personally performed the face to face diagnostic evaluation on this patient. I have reviewed the SKYLAR's History, Exam, and MDM and agree with the assessment and plan as written. I have reviewed all laboratory findings and imaging reports/films. 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 . Follow up neurosurgery outpatient. Hx of Hep c- OP GI Nausea likely from cannabinoids use. Advised to quit Dr Elizabeth Mendenhall MD, MRCP 06/14/2025 6:10 PM documented in this encounter ED Notes * CRISTI Sykes - 06/13/2025 11:21 AM EDT Images from the original note were not included. [facility] - EMERGENCY Pt Name: Leonardo Roach Birthdate: 1985 Chief Complaint: Chief Complaint Patient presents with Nausea Headache Patient c/o nausea and vomiting for 2-3 weeks. Patient states he is concerned about his loss of appetite and weight loss. Patient also c/o headache that started 2 days ago. Patient states pain startsin the back on neck History of Present Illness: Patient is a 40-year-old male who presents to the emergency department for evaluation of nausea dequan headache. Patient reports that he has had a headache that starts in the back of his neck and works its way up for the past few days. He reports some associated nausea and light sensitivity. He states that he does not get headaches very often. He also reports that he has some sort of mass in his brain and has not followed up. He has been taking aspirin with little relief. He also reports that hehas been having some digestive issues going on for several years, but more so some occasional nausea and vomiting over the past few weeks. He reports that he is having a difficult time keeping food down because of the nausea and vomiting. No fevers or chills. No sick contacts. No other health problems. No abdominal surgeries. No other complaints. Past Medical History: History reviewed. No pertinent past medical history. Past Surgical History: History reviewed. No pertinent surgical history. Family History: History reviewed. No pertinent family history. Social History: Social History Socioeconomic History Marital status: Single Tobacco Use Smoking status: Some Days Types: Vaping/E-cigarettes Smokeless tobacco: Current Vaping Use Vaping status: Some Days Substances: Nicotine, THC Substance and Sexual Activity Alcohol use: Not Currently Drug use: Not Currently Sexual activity: Defer Social Drivers of Health Food Insecurity: No Food Insecurity (06/13/2025) Hunger Screening Food Insecurity - Worry: Never True Food Insecurity - Inability: Never True Review of Systems: Review of Systems Physical Exam: ED Triage Vitals [06/13/25 1101] Temp Heart Rate Resp BP SpO2 36.9 ??C (98.4 ??F) (!) 118 20 142/76 97 % Temp Source Heart Rate Source Patient Position BP Location FiO2 (%) Oral Pulse Ox Lying supine Left arm -- Vitals: 06/13/25 1101 BP: 142/76 Temp: 36.9 ??C (98.4 ??F) TempSrc: Oral Pulse: (!) 118 Resp: 20 SpO2: 97% Weight: 62.1 kg (137 lb) Physical Exam Vitals and nursing note reviewed. Constitutional: General: He is not in acute distress. Appearance: Normal appearance. He is not ill-appearing or toxic-appearing. HENT: Head: Normocephalic and atraumatic. Right Ear: External ear normal. Left Ear: External ear normal. Nose: Nose normal. No congestion. Mouth/Throat: Mouth: Mucous membranes are moist. Eyes: Extraocular Movements: Extraocular movements intact. Conjunctiva/sclera: Conjunctivae normal. Pupils: Pupils are equal, round, and reactive to light. Comments: Photophobia noted Neck: Meningeal: Brudzinski's sign and Kernig's sign absent. Comments: No nuchal rigidity Cardiovascular: Rate and Rhythm: Regular rhythm. Tachycardia present. Heart sounds: Normal heart sounds. Pulmonary: Effort: Pulmonary effort is normal. No respiratory distress. Breath sounds: Normal breath sounds. No wheezing. Abdominal: General: Abdomen is flat. Palpations: Abdomen is soft. Tenderness: There is no abdominal tenderness. Musculoskeletal: General: No tenderness. Normal range of motion. Cervical back: Normal range of motion. Skin: General: Skin is warm and dry. Capillary Refill: Capillary refill takes less than 2 seconds. Findings: No rash. Neurological: General: No focal deficit present. Mental Status: He is alert and oriented to person, place, and time. Psychiatric: Mood and Affect: Mood normal. Behavior: Behavior normal. Thought Content: Thought content normal. Judgment: Judgment normal. Procedure: Procedures Re-evaluation: Re-Evaluation Medical Decision Making This is a 40 y.o. male presenting for Nausea and Headache (Patient c/o nausea and vomiting for 2-3 weeks. Patient states he is concerned about his loss of appetite and weight loss. Patient also c/o headache that started 2 days ago. Patient states pain starts in the back on neck). On arrival patient's weight is 62.1 kg (137 lb). His oral temperature is 36.9 ??C (98.4 ??F). His blood pressure is 142/76 and his pulse is 118 (abnormal). His respiration is 20 and oxygen saturation is 97%. History provided by patient. Physical exam: The patient appears to be in no apparent distress and vital signs are stable.. Plan of care: Labs, imaging, medications Evaluation: Well-appearing patient presents for nausea and headache. Patient is nontoxic appearing,in no acute distress. Based on history and presentation, lab work, imaging, and a migraine cocktailwere ordered. Physical exam does not reveal any nuchal rigidity. No leukocytosis noted. Electrolytes are balanced. There is an acute kidney injury noted. Liver enzymes are slightly elevated. Minimal concerned for any significant infectious process. Given the minimal acute kidney injury, I attemptedto hydrate the patient and rechecked lab work, which still revealed an acute kidney injury. I provided patient with medications for the migraine, he much more comfortable, sleeping, sister had statedthat the medications had improved the symptoms. Patient was concerned for a potential cyst in the brain, which was diagnosed approximately a year ago. The same area in the brain appears to be stable at this time, but there is no further follow- up. I would like patient to be admitted to the hospitalfor further evaluation given the uncertain nature of the headaches that are relatively new as well as the potential lack of follow-up. I would also like patient to be given intravenous hydration and manage headaches as well. I discussed plan of care with sister at bedside, she is very comfortable with the plan of care. Disposition: Based on the diagnostic results and physical exam, pt requires observation.. Amount and/or Complexity of Data Reviewed Labs: ordered. Radiology: ordered. Risk Prescription drug management. ED Course: Clinical Impressions as of 06/13/25 1435 ADILSON (acute kidney injury) Acute nonintractable headache, unspecified headache type . ED Disposition None I, Dr. Brock Jay personally performed a bacu-kh-gvfi diagnostic evaluation on this patient. Ipersonally made and approved the management plan for this patient and take responsibility for the patient management. Additional Notes/Findings: 40-year-old male presents emerged department secondary to headache as well as nausea and vomiting. Patient reports he does not have a history of headaches and this headachestarted about 24-48 hours ago. The patient denies any fever, chills, sweats, or other concerning issues. Physical exam: General: Well-developed well-nourished Lungs: CTA CV: Regular rate and rhythm Abdomen: Soft nontender nondistended Neuro: A&O x4 moves all 4 extremities spontaneously ED course: Patient will undergo CBC, BNP, and CT scan of the brain. Patient will also be given IV fluids, Toradol and Zofran. re-evaluated after CT. Please note that portions of this note were completed with a voice recognition program. Efforts were made to edit the dictations but occasionally words are mis-transcribed. Kathia Mary, FELIPE-LAM 06/13/25 1121 Kathia Mary, FELIPE-LAM 06/13/25 1141 Kathia Mary, FELIPE-ALM 06/13/25 1202 Brock Jay, 06/13/25 1205 Brocklamine Jay DO 06/13/25 1206 CRISTI Sykes 06/13/25 1524 Cosigned by Brock Jay DO at 06/15/2025 10:12 AM EDT documented in this encounter Miscellaneous Notes * Patient Blood Management - Keiry Ferrer RN - 06/14/2025 1:32 PM EDT Images from the original note were not included. BLOODLESS CARE SERVICES Leonardo Roach is a 40 y.o. male who has requested Bloodless Care Services for refusal of blood transfusions (whole blood, red cells, white cells, platelets, plasma). Spoke to patient sister (?) on phone. She confirmed that he is refusing blood products. She states he desires to have a DNR code status. Attempted to call primary nurse, PREMA Quintana but got a busy signal. Message sent to PREMA Quintana notifying of bloodless status and need for completion of Refusal form and no blood identifiers. Was not able to speak directly to patient as he was in restroom at time. So did not discuss bloodless care choices. Reason for Blood Refusal: Personal Bloodless Care Education Provided: Refusal to Permit Blood Transfusions-pending No blood identifiers- pending Bloodless Care Patient Choices: Not discussed at this time. Minimization of Patient Blood Loss: Blood conservation techniques are an essential part of Blood Management. Please make use of micro draws, bundle/add on labs when possible and limit phlebotomy to an as needed basis for medical decision making only. Please Notify Bloodless Care if Patient: Actively Bleeding, Requires Urgent Surgery, and Hgb < 11 or Drop by 2 Grams from Baseline Lab Results Component Value Date HGB 12.4 (L) 06/14/2025 Thank you for the opportunity to assist in the care of your patient. Please feel free to contact uswith any questions or concerns. Bloodless Care nurses can be reached Saturday - Saturday 7 am - 3:30 pm. After hours a voicemail can be left for non-emergent needs, and we will respond on the next business day. For any emergent after hour needs, please page the on-call provider for Blood Management. [facility] Bloodless [facility] Mike Ku Duncan [address], [address] [place] [address] Office: [phone] * PT/OT/STUDENT RECORDS SPECIALIST - STACI Mansfield/L - 06/14/2025 1:02 PM EDT Occupational Therapy OT Type of Visit: Discharge from Therapy per chart review pt is moving at baseline and denies therapy needs. OT to complete order at this time. * PT/OT/STUDENT RECORDS SPECIALIST - Joyce Campos, PT - 06/14/2025 9:58 AM EDT Physical Therapy PT Type of Visit: Discharge from Therapy, Patient refusal (Pt IND in room and functioning at baseline, demonstrates normal standing balance and no gait deviations. Pt denies need for therapy services; no acute therapy needs identified. Pt plans to return to home at discharge.) Pt mentions he was recently told he may have crystals in his ears but this has not been addressed. Pt educated on availability of vestibular rehab on an outpatient basis. Pt to follow up with his physician regarding this. * Discharge Planning Note - LARISSA Mena - 06/14/2025 9:46 AM EDT Images from the original note were not included. Initial Assessment Discharge Planning Assessment Leonardo Roach Admit Status: Observation Meet: Unknown Readmission Risk: N/A. Date of Admission: 06/13/2025 GMLOS: <48 hours Target Discharge Date: 06/15/2025 Discharge Planning Assessment completed via phone. Supervisor [place] identified self and role to the patient. Patient is agreeable to the assessment and discussion of a safe discharge plan. Initial Assessment Flowsheet Row Most Recent Value Patient Information Initial Pre-Hospitalization Assessment Completed? Completed Primary Caregiver Self Discharge Planning Living Arrangements Friend Assistance Needed Patient is independent with ADLs and mobility. He lives with a roommate in a two story home. He is unemployed and still drives. He does not own any DME. He does not endorse any financial barriers to food, medication, or utilities. Type of Residence Private residence Private Residence 2 story Can patient reside on one level? No Home Care Services No Community Agencies Currently Utilized [facility] [place] Community Referrals / Resources Provided Denies needs Does The Patient Have Existing Home DME? No Will the patient need DME at discharge? No, the patient has no home DME needs currently Stressors Income Information Income Information Unemployed IP Hunger/Food Insecurity Screening Within the past 12 months we worried whether our food would run out before we got money to buy more. Never True Within the past 12 months the food we bought just didn't last and we didn't have money to get more.Never True Hunger Screening Complete? Yes Warm Handoff Complete Caregiver/Family Member Caregiver/Support System Limitations Caregiver/Support Systems Limitations (Check All That Apply) No Caregiver Needed Patient/Caregiver Goals Patient/Caregiver Goals Home No Needs Home No Needs Alone Community Provider Referral Community Provider Referral None Services Requested Patient expects to be discharged to: Home with self care Does the patient wish to have family/friend/caregiver involved in their discharge planning? No, thepatient does not wish to have family/friend/caregiver involved in their discharge planning Discharge Disposition Home with self care Does the patient need discharge transportation arranged? No [facility]: [facility] PCP: Dr. Guy Consulting Providers this admission: none Patient will make his own follow up appointments: no Patient Goals: Goals Home with self care (pt-stated) Evaluation of progress towards goal: Patient will return home with self care PT Recommends: pending evaluation OT Recommends: pending evaluation Plan to prevent readmission: follow up with PCP Patient does not endorse any questions at this time. Patient Discharge Plan: Home with self care Follow up with PCP Dr. Guy on 06/23/2025 at 10:15 am. - LARISSA Mena 06/14/25 9:49 AM * Discharge Planning Note - Allison Regan - 06/14/2025 9:45 AM EDT DISCHARGE PLANNING NOTE June 23 at 10:15am Hospital follow up with RANDY GUY MD Spoke with Tasia documented in this encounter Plan of Treatment DateTypeDepartmentCare Team (Latest Contact Info)Klsfsfbmgwb09/06/2025 3:00 PM ESTOffice Visit [facility] Department of [address] [id number] Jorge Colón S, DO [address] [address] NameTypePriorityAssociated DiagnosesOrder ScheduleAmbulatory referral to GastroenterologyOutpatient ReferralRoutine Abdominal pain, vomiting, and diarrhea 1 Occurrences starting 06/14/2025 until 06/14/2026mbulatory referral to NeurosurgeryOutpatient ReferralRoutine Acute nonintractable headache, unspecified headache type 1 Occurrences starting 06/14/2025 until 06/14/2026documented as of this encounter Goals GoalPatient Goal TypeAssociated ProblemsRecent ProgressPatient-Stated?Author Home with self care Allyson Ruby LSW Note: Evaluation of progress towards goal: Patient will return home with self care documented as of this encounter Procedures Procedure NamePriorityDate/TimeAssociated DiagnosisCommentsMR BRAIN W WO CONT Cneefgd6206/14/2025 11:24 AM EDT EXTRA TUBES BLUE RWXLtyzqhl96/27/2025 4:48 AM EDT EXTRA DDYJLEgmeytv81/27/2025 4:48 AM EDT CBC WITH AUTO PFLAHIAYYCXFVmgqdhd28/27/2025 4:48 AM EDT VPNHFKCCJXgbvifi51/27/2025 4:48 AM EDT COMPREHENSIVE METABOLIC DEJVYZiwthup78/27/2025 4:48 AM EDT COMPREHENSIVE METABOLIC VOWWOVRJL16/26/2025 1:[address] CERVICAL SPINE WO YJSBIESH89/26/2025 12:[address] BRAIN WO GXSSWMRE78/26/2025 12:14 PM EDT CBC WITH AUTO PZLCWFQHOKWALPSH69/26/2025 11:28 AM EDT OUJPZVSBCROUC14/26/2025 11:28 AM EDT COMPREHENSIVE METABOLIC OPXFRKYAU44/26/2025 11:28 AM EDT EXTRA TUBES BLUE IRLDxjjoxb79/26/2025 11:27 AM EDT EXTRA SYYDOHlhlbas17/26/2025 11:27 AM EDT documented in this encounter Results * MR brain with and without contrast (06/14/2025 11:24 AM EDT)Anatomical Region LateralityModalityNeuro, Head, Head and Neck, Neuro CoveraN/AMagnetic ResonanceSpecimen (Source)Anatomical Location / LateralityCollection Method / VolumeCollection TimeReceived Time06/14/2025 11:26 AM EDT Narrative 06/14/2025 11:37 AM EDT MR BRAIN W WO CONT CLINICAL INFORMATION: Headache. Vomiting. COMPARISON: CT brain 06/13/2025 and 01/06/2024. PROCEDURE: Routine MRI Brain was obtained before and after the uncomplicated intravenous administration of 13 mL ProHance. Multisequence, multiplanar imaging was obtained. FINDINGS: No acute intracranial ischemia, mass effect, shift of midline structures, or new abnormal extra axial fluid collection. No acute intracranial hemorrhage or parenchymal enhancing lesion. Overall brainvolume is normal. No significant parenchymal signal changes. Ventricular system size and morphology are normal, basal cisterns are patent. Major intracranial flow voids appear preserved. Prominent midline retrocerebellar extra-axial space which may represent arachnoid cyst or jason cisterna magna, similar compared to prior CT from 2023. Visualized cervical spine is unremarkable. Cerebellar tonsillar position is normal. Orbits are symmetric. Paranasal sinuses are well-aerated. Trace fluid within the left mastoid air cells. IMPRESSION: No acute intracranial findings. No findings to account for patient headaches. Finalized by Sundeep Estevez MD on 06/14/2025 11:37 AM Procedure Note Sundeep Estevez MD - 06/14/2025 MR BRAIN W WO CONT CLINICAL INFORMATION: Headache. Vomiting. COMPARISON: CT brain 06/13/2025 and 01/06/2024. PROCEDURE: Routine MRI Brain was obtained before and after theuncomplicated intravenous administration of 13 mL ProHance. Multisequence,multiplanar imaging was obtained. FINDINGS: No acute intracranial ischemia, mass effect, shift of midline structures,or new abnormal extra axial fluid collection. No acute intracranialhemorrhage or parenchymal enhancing lesion. Overall brain volume isnormal. No significant parenchymal signal changes. Ventricular system sizeand morphology are normal, basal cisterns are patent. Major intracranial flow voidsappear preserved. Prominent midline retrocerebellar extra-axial spacewhich may represent arachnoid cyst or jason cisterna magna, similarcompared to prior CT from 2023. Visualized cervical spine is unremarkable. Cerebellar tonsillar positionis normal. Orbits are symmetric. Paranasal sinuses are well-aerated. Tracefluid within the left mastoid air cells. IMPRESSION: No acute intracranial findings. No findings to account for patientheadaches. Finalized by Sundeep Estevez MD on 06/14/2025 11:37 AM Authorizing ProviderResult TypeResult StatusTaeler Roberth DIRECTOR HOUSEKEEPING-CNPIMG MRI ORDERABLESFinal Result * Light Blue Top (06/14/2025 4:48 AM EDT)ComponentValueRef RangeTest Method Analysis TimePerformed AtPathologist SignatureExtra TubeAuto Resulted 06/14/2025 7:01 AM EDTPPARKVIEW HEALTH BRYAN HOSPITALpecimen (Source) Anatomical Location / LateralityCollection Method / VolumeCollection Time Received TimeBloodVenous blood / Nevnilf3106/14/2025 4:48 AM EDT1 6:19 AM EDT Narrative Authorizing ProviderResult TypeResult StatusRusami ZAZUETA BLOOD ORDERABLESFinal ResultPerforming OrganizationAddressCity/State/ZIP CodePhone Number [facility] [address] [place] [address], [place] * (ABNORMAL) CBC auto differential (06/14/2025 4:48 AM EDT)ComponentValueRef RangeTest MethodAnalysis TimePerformed AtPathologist SignatureWBC5.64 - 11 x10E9/L1 5:31 AM EDKING[facility] OHIORBC Count4.04 (L)4.1 - 5.7 X10E12/L1 5:31 AM [facility] Fvrxixbuwj86.4(L)13 - 17 g/dL06/14/2025 5:31 AM [facility]ITALHematocrit35.9(L)39 - 50 %06/14/2025 5:31 AM EDKING[facility] OHIOMCV8980 - 100 fL06/14/2025 5:31 AM [facility]ITALMCH30.727 - 34 pg06/14/2025 5:31 AM [facility]ITALMCHC34.532 - 36 g/dL06/14/2025 5:31 AM [facility]ITALRDW13.311.5 - 15 %06/14/2025 5:31 AM [facility] HOSPITALPlatelet Fmezu541783 - 450 X10E9/L1 5:31 AM EDT [facility]MPV8.47 - 12 fL06/14/2025 5:31 AM EDT [facility]ITALNeutrophils %82.8%06/14/2025 5:31 AM EDT [facility]ALLymphocytes %11.5%06/14/2025 5:31 AM EDT [facility]ITALMonocytes %5.3%06/14/2025 5:31 AM EDT [facility]ALEosinophils %0.1%06/14/2025 5:31 AM EDT [facility]ITALBasophils %0.3%06/14/2025 5:31 AM EDT [facility]OSPITALNeutrophils Absolute (A)4.71.5 - 6.6 10*3/uL06/14/2025 5:31 AM EDKING[facility] OHIOLymphocytes Absolute0.6(L)1.0 - 3.5 10*3/uL06/14/2025 5:31 AM EDKING[facility] OHIOMonocytes Absolute0.30.0 - 0.9 10*3/uL06/14/2025 5:31 AM EDT [facility]ALEosinophils Absolute0.00.0 - 0.4 10*3/uL 06/14/2025 5:31 AM EDKING'[facility] OHIOBasophils Absolute0.0 0.0 - 0.2 10*3/uL06/14/2025 5:31 AM [facility] Differential TypeAUTOMATED EGSPAJBEINSK79/27/2025 5:31 AM [facility]ITALpecdorminy medical center (Source)Anatomical Location / LateralityCollection Method / VolumeCollection TimeReceived TimeBloodVenous blood / Unknown Venipuncture / Iwzuyqm3606/14/2025 4:48 AM EDT1 5:25 AM EDT Narrative Authorizing ProviderResult TypeResult StatusTaeler Roberth DIRECTOR HOUSEKEEPING-CNPLAB BLOOD ORDERABLESFinal ResultPerforming OrganizationAddressCity/State/ZIP CodePhone Number [facility] [address] [place] [address], * Magnesium (06/14/2025 4:48 AM EDT)ComponentValueRef RangeTest MethodAnalysis TimePerformed AtPathologist SignatureMAGNESIUM2.01.8 - 2.6 mg/dL06/14/2025 5:56 AM [facility] (Source)Anatomical Location / LateralityCollection Method / VolumeCollection TimeReceived Time BloodVenous blood / UnknownVenipuncture / Mazoldh9206/14/2025 4:48 AM EDT 06/14/2025 5:26 AM EDT Narrative Authorizing ProviderResult TypeResult StatusTaeler Lepe DIRECTOR HOUSEKEEPING-CNPLAB BLOOD ORDERABLESFinal ResultPerforming OrganizationAddressCity/State/ZIP CodePhone Number [facility] [address] [place] [address], * (ABNORMAL) Comprehensive metabolic panel (06/14/2025 4:48 AM EDT)Component ValueRef RangeTest MethodAnalysis TimePerformed AtPathologist SignatureSODIUM 816020 - 146 mmol/L1 5:56 AM [facility] POTASSIUM3.93.5 - 5.0 mmol/L1 5:56 AM [facility] HOSPITALCHLORIDE10598 - 109 mmol/L1 5:56 AM EDKING'[facility] OHIOCARBON NLDBGGG9655 - 32 mmol/L1 5:56 AM EDKING'S DAUGH[facility] OHIOANION GAP95 - 15 mmol/L1 5:56 AM EDT [facility]ITALBLOOD UREA EBOVHPDM922 - 23 mg/dL06/14/2025 5:56 AM [facility]ITALCREATININE1.030.70 - 1.20 mg/dL 06/14/2025 5:56 AM [facility] HOSPITALComment:METHOD TRACEABLE TO IDMS HSLVHXRKNPMSCHL811(H)65 - 99 mg/dL06/14/2025 5:56 AM EDT [facility]ITALCALCIUM8.2(L)8.5 - 10.5 mg/dL06/14/2025 5:56 AM [facility] HOSPITALTOTAL PROTEIN6.16.0 - 8.0 g/dL 06/14/2025 5:56 AM [facility] HOS[facility]ITALALBUMIN3.33.2 - 5.3 g/dL06/14/2025 5:56 AM [facility] HOSPITALALKALINE YQIVYAZGSAG3804 - 130 U/L1 5:56 AM [facility]OS[facility]ITALAST69(H)<=41 U/L1 5:56 AM EDKING'[facility]UGH[facility] OHIOALT148(H)<=40 U/L1 5:56 AM [facility] HOSPITALBILIRUBIN,TOTAL0.40.3 - 1.2 mg/dL06/14/2025 5:56 AM [facility] HOSPITALEGFR Non-Race Dependent>90>=60 ml/min/1.73sq.m 06/14/2025 5:56 AM [facility] HOSPITALComment: eGFR not reported due to non-numeric value for Creatinine. Reported eGFR is based on the CKD-EPI 2020 equation that does not use a race coefficient. Specimen (Source)Anatomical Location / LateralityCollection Method / Volume Collection TimeReceived TimeBloodVenous blood / UnknownVenipuncture / Unknown 06/14/2025 4:48 AM EDT1 5:26 AM EDT Narrative Authorizing ProviderResult TypeResult StatusTaeler Roberth DIRECTOR HOUSEKEEPING-CNPLAB BLOOD ORDERABLESFinal ResultPerforming OrganizationAddressCity/State/ZIP CodePhone Number [facility] [address] [place] [address], * (ABNORMAL) Comprehensive metabolic panel (06/13/2025 1:38 PM EDT)Component ValueRef RangeTest MethodAnalysis TimePerformed AtPathologist SignatureSODIUM [id number] - 146 mmol/L1 2:11 PM EDTPSELECT [facility] POTASSIUM3.83.5 - 5.0 mmol/L1 2:11 PM EDTPSELECT MEDICAL SPECIALTY HOSPITAL - COLUMBUSCHLORIDE9998 - 109 mmol/L1 2:11 PM EDTPSELECT MEDICAL SPECIALTY HOSPITAL - COLUMBUSCARBON SXVLXDK2432 - 32 mmol/L1 2:11 PM EDTPSELECT MEDICAL SPECIALTY HOSPITAL - COLUMBUSANION GAP95 - 15 mmol/L1 2:11 PM EDT [facility]ITALBLOOD UREA FJEIBQZG763 - 23 mg/dL06/13/2025 2:11 PM EDTPSELECT MEDICAL SPECIALTY HOSPITAL - COLUMBUSCREATININE1.22(H)0.70 - 1.20 mg/dL06/13/2025 2:11 PM EDKING'S DAUGHTERS MEDICAL [facility]ENTER OHIOComment:METHOD TRACEABLE TO IDMS DTXNIXJILUPXNLE452(H)65 - 99 mg/dL06/13/2025 2:11 PM EDT [facility] CENTERCALCIUM8.1(L)8.5 - 10.5 mg/dL06/13/2025 2:11 PM EDTPSELECT MEDICAL SPECIALTY HOSPITAL - COLUMBUSTOTAL PROTEIN6.36.0 - 8.0 g/dL 06/13/2025 2:11 PM EDKING'S DAUGHTERS MEDICAL [facility]ENTER OHIOALBUMIN3.53.2 - 5.3 g/dL06/13/2025 2:11 PM [facility] HOSPITALALKALINE QYLCCZLZCNC2588 - 130 U/L1 2:11 PM [facility]ITALAST91(H)<=41 U/L1 2:11 PM EDKING'S [facility]UGH[facility] OHIOALT169(H)<=40 U/L1 2:11 PM [facility] HOSPITALBILIRUBIN,TOTAL1.20.3 - 1.2 mg/dL06/13/2025 2:11 PM [facility] HOSPITALEGFR Non-Race Mmdrbzfja78>=60 ml/min/1.73sq.m 06/13/2025 2:11 PM [facility]ITALComment: eGFR not reported due to non-numeric value for Creatinine. Reported eGFR is based on the CKD-EPI 2020 equation that does not use a race coefficient. Specimen (Source)Anatomical Location / LateralityCollection Method / Volume Collection TimeReceived TimeBloodVenous blood / UnknownVenipuncture / Unknown 06/13/2025 1:38 PM EDT1 1:53 PM EDT Narrative Authorizing ProviderResult TypeResult StatusJessjessica Mary DIRECTOR HOUSEKEEPING-CNPLAB BLOOD ORDERABLESFinal ResultPerforming OrganizationAddressCity/State/ZIP CodePhone Number [facility] [address] [place] [address], [place] * CT cervical spine without contrast (06/13/2025 12:14 PM EDT)Anatomical Region LateralityModalityMSK, Neuro, Spine, C-spine, Spine CoveraN/AComputed TomographySpecimen (Source)Anatomical Location / LateralityCollection Method / VolumeCollection TimeReceived Time06/13/2025 12:17 PM EDT Narrative 06/13/2025 12:22 PM EDT History: ??Headache neck pain Technique: ??Multidetector spiral CT scan of cervical spine is performed. Multiplanar reconstruction images are obtained. ??All CT scans at this facility use dose modulation, iterative reconstruction, and/or weight based dosing when appropriate to reduce radiation dose to as low as reasonably achievable. Comparison: ??None available. Findings: ??There is no evidence of fracture through the cervical vertebrae. The posterior elementsare intact. No bony fragments are seen in the spinal canal. Sagittal and axial images demonstrate normal vertebral heights. There is no evidence of compressionfractures or malalignment. The odontoid process is intact. No significant prevertebral soft tissue abnormality is identified. IMPRESSION: ??No evidence of fractures, malalignment or acute bony pathology. Finalized by Louie Mahajan MD on 06/13/2025 12:22 PM Procedure Note Louie Mahajan MD - 06/13/2025 History: Headache neck pain Technique: Multidetector spiral CT scan of cervical spine is performed. Multiplanar reconstruction images are obtained. [facility] use dose modulation, iterative reconstruction, and/or weightbased dosing when appropriate to reduce radiation dose to as low asreasonably achievable. Comparison: None available. Findings: There is no evidence of fracture through the cervicalvertebrae. The posterior elements are intact. No bony fragments are seenin the spinal canal. Sagittal and axial images demonstrate normal vertebral heights. There isno evidence of compression fractures or malalignment. The odontoid processis intact. No significant prevertebral soft tissue abnormality is identified. IMPRESSION: No evidence of fractures, malalignment or acute bonypathology. Finalized by Louie Mahajan MD on 06/13/2025 12:22 PM Authorizing ProviderResult TypeResult StatusJegriselda Mary DIRECTOR HOUSEKEEPING-CNPIMG CT ORDERABLESFinal Result * CT brain without contrast (06/13/2025 12:14 PM EDT)Anatomical RegionLaterality ModalityNeuro, Head, Head and Neck, Neuro CoveraN/AComputed TomographySpecimen (Source)Anatomical Location / LateralityCollection Method / VolumeCollection TimeReceived Time06/13/2025 12:15 PM EDT Narrative 06/13/2025 12:17 PM EDT Examination: ??Noncontrast brain CT Date of Exam:06/13/2025 Clinical History:Anterior headache Comparison:01/06/2024 Procedure: ??Multi-detector CT performed through the brain without IV contrast. ??Automatic exposure control (AEC) was utilized. Findings: ??There is no intracranial hemorrhage, extra-axial fluid collection, mass effect, or hydrocephalus. ?? Swann-white matter differentiation is appropriate. Infarcts may be occult on CT, but grossly no acute infarct identified There is no midline shift. Retrocerebellar posterior fossa cyst or jason cisterna magna stable. The sinuses are clear. IMPRESSION: 1. ??No acute findings. Sinuses are clear. All CT scans at this facility use dose modulation, iterative reconstruction, and/or weight based dosing when appropriate to reduce radiation dose to as low as reasonably achievable. Finalized by Thierno Fam MD on 06/13/2025 12:17 PM Procedure Note Thierno Fam MD - 06/13/2025 Examination: Noncontrast brain CT Date of Exam:06/13/2025 Clinical History:Anterior headache Comparison:01/06/2024 Procedure: Multi-detector CT performed through the brain without IVcontrast. Automatic exposure control (AEC) was utilized. Findings: There is no intracranial hemorrhage, extra-axial fluidcollection, mass effect, or hydrocephalus. Swann-white matter differentiation is appropriate. Infarcts may be occulton CT, but grossly no acute infarct identified There is no midline shift. Retrocerebellar posterior fossa cyst or megacisterna magna stable. The sinuses are clear. IMPRESSION: 1. No acute findings. Sinuses are clear. All CT scans at this facility use dose modulation, iterativereconstruction, and/or weight based dosing when appropriate to reduceradiation dose to as low as reasonably achievable. Finalized by Thierno Fam MD on 06/13/2025 12:17 PM Authorizing ProviderResult TypeResult StatusKathia Mary DIRECTOR HOUSEKEEPING-CNPIMG CT ORDERABLESFinal Result * Magnesium (06/13/2025 11:28 AM EDT)ComponentValueRef RangeTest MethodAnalysis TimePerformed AtPathologist SignatureMAGNESIUM2.11.8 - 2.6 mg/dL06/13/2025 12:43 PM EDKET[facility]ORIALpecimen (Source)Anatomical Location / LateralityCollection Method / VolumeCollection TimeReceived Time BloodVenous blood / UnknownVenipuncture / Vqjiiny6306/13/2025 11:28 AM EDT 06/13/2025 11:30 AM EDT Narrative Authorizing ProviderResult TypeResult StatusKathia Mary DIRECTOR HOUSEKEEPING-CNPLAB BLOOD ORDERABLESFinal ResultPerforming OrganizationAddressCity/State/ZIP CodePhone Number [facility] [address] [place] [address], * (ABNORMAL) Comprehensive metabolic panel (06/13/2025 11:28 AM EDT)Component ValueRef RangeTest MethodAnalysis TimePerformed AtPathologist SignatureSODIUM 131(L)134 - 146 mmol/L1 12:43 PM EDTPSELECT MEDICAL SPECIALTY [facility]OSPITAL - COLUMBUSPOTASSIUM3.53.5 - 5.0 mmol/L1 12:43 PM EDKING[facility] OHIOCHLORIDE95(L)98 - 109 mmol/L1 12:43 PM EDTPSELECT MEDICAL SPECIALTY [facility]OS[facility] - COLUMBUSCARBON [id number] - 32 mmol/L1 12:43 PM EDT [facility]ITALANION XBM867 - 15 mmol/L1 12:43 PM [facility]ITALBLO[facility] UREA KWWBWGSF253 - 23 mg/dL 06/13/2025 12:43 PM [facility]ITALCREATININE1.42(H) 0.70 - 1.20 mg/dL06/13/2025 12:43 PM [facility] Comment:METHOD TRACEABLE TO IDMS XTMQEWFYANCJBSX183(H)65 - 99 mg/dL06/13/2025 12:43 PM [facility]ITALCALCIUM8.4(L)8.5 - 10.5 mg/dL 06/13/2025 12:43 PM [facility]ITALTOTAL PROTEIN6.76.0 - 8.0 g/dL06/13/2025 12:43 PM [facility]ITALALBUMIN3.8 3.2 - 5.3 g/dL06/13/2025 12:43 PM [facility] ALKALINE SHHPPYZIBOY3287 - 130 U/L1 12:43 PM [facility]ITALAST100(H)<=41 U/L1 12:43 PM [facility]ITALALT183(H)<=40 U/L1 12:43 PM [facility]PITALBILIRUBIN,TOTAL1.3(H)0.3 - 1.2 mg/dL06/13/2025 12:43 PM EDT [facility]EREGFR Non-Race Pjkhpebih14>=60 ml/min/1.73sq.m1 12:43 PM [facility] Comment: eGFR not reported due to non-numeric value for Creatinine. Reported eGFR is based on the CKD-EPI 2020 equation that does not use a race coefficient. Specimen (Source)Anatomical Location / LateralityCollection Method / Volume Collection TimeReceived TimeBloodVenous blood / UnknownVenipuncture / Unknown 06/13/2025 11:28 AM EDT1 11:30 AM EDT Narrative Authorizing ProviderResult TypeResult StatusJessjessica Mary DIRECTOR HOUSEKEEPING-CNPLAB BLOOD ORDERABLESFinal ResultPerforming OrganizationAddressCity/State/ZIP CodePhone Number [facility] [address] [place] [address], * (ABNORMAL) CBC auto differential (06/13/2025 11:28 AM EDT)ComponentValueRef RangeTest MethodAnalysis TimePerformed AtPathologist SignatureWBC4.74 - 11 x10E9/L1 11:53 AM EDTPSELECT MEDICAL SPECIALTY HOSPITAL - COLUMBUSRBC Count4.36 4.1 - 5.7 X10E12/L1 11:53 AM [facility] Ickqxrqxrc85.113 - 17 g/dL06/13/2025 11:53 AM EDKING[facility] OHIOHematocrit38.3(L)39 - 50 %06/13/2025 11:53 AM [facility]PITALMCV8880 - 100 fL06/13/2025 11:53 AM EDKING[facility] OHIOMCH30.127 - 34 pg06/13/2025 11:53 AM [facility]OSPITALMCHC34.332 - 36 g/dL06/13/2025 11:53 AM EDKING[facility] OHIORDW13.311.5 - 15 %06/13/2025 11:53 AM [facility] HOSPITALPlatelet Adefq367962 - 450 X10E9/L1 11:53 AM EDT [facility]ITALMPV7.77 - 12 fL06/13/2025 11:53 AM EDT [facility]ITALNeutrophils %50.9%06/13/2025 11:53 AM EDT [facility]ALLymphocytes %36.6%06/13/2025 11:53 AM EDT [facility]ITALMonocytes %10.8%06/13/2025 11:53 AM EDT [facility]ALEosinophils %1.3%06/13/2025 11:53 AM EDT [facility]ITALBasophils %0.4%06/13/2025 11:53 AM EDT [facility]ITALNeutrophils Absolute (A)2.41.5 - 6.6 10*3/uL06/13/2025 11:53 AM [facility] HOSPITALLymphocytes Absolute1.71.0 - 3.5 10*3/uL06/13/2025 11:53 AM EDGAL[facility] HOSPITALMonocytes Absolute0.50.0 - 0.9 10*3/uL06/13/2025 11:53 AM [facility]OSPITALEosinophils Absolute0.10.0 - 0.4 10*3/uL06/13/2025 11:53 AM [facility]OSPITALBasophils Absolute0.00.0 - 0.2 10*3/uL06/13/2025 11:53 AM [facility]OSPITALDifferential TypeAUTOMATED ZNKXPCFZGPCC44/26/2025 11:53 AM [facility] (Source)Anatomical Location / LateralityCollection Method / VolumeCollection TimeReceived TimeBloodVenous blood / UnknownVenipuncture / Rjqfpbh7606/13/2025 11:28 AM EDT1 11:30 AM EDT Narrative Authorizing ProviderResult TypeResult StatusJessjessica Mary DIRECTOR HOUSEKEEPING-CNPLAB BLOOD ORDERABLESFinal ResultPerforming OrganizationAddressCity/State/ZIP CodePhone Number [facility] [address] [place] [address], * Light Blue Top (06/13/2025 11:27 AM EDT)ComponentValueRef RangeTest Method Analysis TimePerformed AtPathologist SignatureExtra TubeAuto Resulted 06/13/2025 1:01 PM [facility] (Source) Anatomical Location / LateralityCollection Method / VolumeCollection Time Received TimeBloodVenous blood / Tmtovtu6206/13/2025 11:27 AM EDT1 11:30 AM EDT Narrative Authorizing ProviderResult TypeResult StatusSpencer Pierre DOLAB BLOOD ORDERABLESFinal ResultPerforming OrganizationAddressCity/State/ZIP CodePhone Number [facility] [address] [place] [address], documented in this encounter Visit Diagnoses Diagnosis ADILSON (acute kidney injury)- Primary ADILSON (acute kidney injury) Acute nonintractable headache, unspecified headache type Abdominal pain, vomiting, and diarrhea Substance abuse ([facility]) Other, mixed, or unspecified nondependent drug abuse, unspecified Hepatitis C Unspecified viral hepatitis C without hepatic coma documented in this encounter Admitting Diagnoses Diagnosis ADILSON (acute kidney injury) documented in this encounter Administered Medications Medication OrderMAR ActionAction DateDoseRateSite acetaminophen (TYLENOL) tablet 650 mg 650 mg, oral, Every 6 hours PRN, mild pain - pain scale 1-3, temperature greater than 38 C, Starting on 06/13/25 at 1613, [Warning: Total Acetaminophen not to exceed more than 4 grams (4000 mg) in 24 hours] Given06/13/2025 8:40 PM LIG229 mg alum-mag hydroxide-simeth (MAALOX) 200-200-20 mg/5 mL suspension 30 mL 30 mL, oral, 4 times daily after meals and at bedtime as needed, dyspepsia, Starting on 06/13/25 at 1613, Look-alike/sound-alike medication - verify indication for use. Jose Juan well., Indications: dyspepsia Indications:dyspepsia cyclobenzaprine (FLEXERIL) tablet 10 mg 10 mg, oral, Every 8 hours PRN, muscle spasms, Starting on 06/13/25 at 1723 dexAMETHasone sodium phos (PF) (DECADRON) injection 10 mg 10 mg, oral, Once, On 06/13/25 at 1118, For 1 dose, DexAMETHasone injection for ORAL use. May mix injection with oral flavored syrup. Administer immediately. May alter blood glucose or insulin requirements. Look-alike/sound-alike medication - verify indication for use. Given06/13/2025 11:33 AM EDT10 mg diphenhydrAMINE (BENADRYL) injection 25 mg 25 mg, intravenous, Once, On 06/13/25 at 1118, For 1 dose, Look-alike/sound-alike medication - verify indication for use. Given06/13/2025 11:40 AM EDT25 mg enoxaparin (LOVENOX) syringe 40 mg 40 mg, subcutaneous, Every 24 hours scheduled, First dose on Sat06/14/25 at 0900, Look-alike/sound-alike medication - verify indication for use. gadoteridoL (PROHANCE) injection 6.36 mmol 12.72 mL 6.36 mmol (0.1 mmol/kg ?? 63.6 kg), intravenous, Once in imaging, contrast, MRI, Starting on Sat06/14/25 at 1053, For 1 dose, VESICANT (RED), Indications: magnetic resonance imaging Indications:magnetic resonance vgcjpqtVcykb11/27/2025 11:21 AM EDT6.36 mmol ketorolac (TORADOL) injection 15 mg 15 mg, intravenous, Once, On 06/13/25 at 1118, For 1 dose, Look-alike/sound-alike medication - verify indication for use. Duration of therapy is not to exceed 5 days. Maximum recommended dose + 120mg/24 hours. Given06/13/2025 11:35 AM EDT15 mg ondansetron (PF) (ZOFRAN) injection 4 mg 4 mg, intravenous, Every 4 hours PRN, nausea, vomiting, Starting on 06/13/25 at 1613, Intravenous administration preferred to be given over 2-5 minutes. prochlorperazine (COMPAZINE) injection 5 mg 5 mg, intravenous, Once, On 06/13/25 at 1118, For 1 dose, When administered via IV Push, do notexceed 5 mg per minute Given06/13/2025 11:37 AM EDT5 mg sennosides-docusate sodium (SENOKOT-S) 8.6-50 mg 1 tablet 1 tablet, oral, Every 12 hours PRN, constipation, Starting on 06/13/25 at 1613 sodium chloride 0.9 % bolus 1,000 mL, intravenous, at 984 mL/hr, Administer over 61 Minutes, Once, On 06/13/25 at 1118, For1 dose New Bag06/13/2025 11:33 AM EDT1,000 mL984 mL/hr sodium chloride 0.9 % flush 10 mL 10 mL, intravenous, Once in imaging, line care, MRI, Starting on Sat06/14/25 at 1053, For 1 dose Given06/14/2025 11:21 AM EDT10 mL sodium chloride 0.9 % flush 3 mL 3 mL, intravenous, As needed, line care, before and after each intermittent use, Starting on Sat06/13/25 at 1613 sodium chloride 0.9 % flush 3 mL 3 mL, intravenous, Every 12 hours scheduled, First dose on Sat06/13/25 at 2100 Given06/13/2025 8:41 PM EDT3 mL sodium chloride 0.9 % infusion 100 mL/hr, intravenous, Continuous, Starting on Sat06/13/25 at 1614, For 1 day New Bag06/14/2025 5:56 AM HZK260 mL/hr100 mL/hrNew Bag06/13/2025 4:49 PM DTF801 mL/hr100 mL/hrdocumented in this encounter Active and Recently Administered Medications Times are shown in EDT.Medication Order06/12/ dexAMETHasone sodium phos (PF) (DECADRON) injection 10 mg (COMPLETED) 10 mg, oral, Once, On Sat06/13/25 at 1118, For 1 dose, DexAMETHasone injection for ORAL use. May mix injection with oral flavored syrup. Administer immediately. May alter blood glucose or insulin requirements. Look-alike/sound-alike medication - verify indication for use. * 1133 (Given - Provider: Ave Oh RN) diphenhydrAMINE (BENADRYL) injection 25 mg (COMPLETED) 25 mg, intravenous, Once, On Sat06/13/25 at 1118, For 1 dose, Look-alike/sound-alike medication - verify indication for use. * 1140 (Given - Provider: Ave Oh RN) enoxaparin (LOVENOX) syringe 40 mg 40 mg, subcutaneous, Every 24 hours scheduled, First dose on Sat06/14/25 at 0900, Look-alike/sound-alike medication - verify indication for use. * 1200 (Not Given - Provider: Lilian Evans RN - Reason: Patient/family refused) ketorolac (TORADOL) injection 15 mg (COMPLETED) 15 mg, intravenous, Once, On Sat06/13/25 at 1118, For 1 dose, Look-alike/sound-alike medication - verify indication for use. Duration of therapy is not to exceed 5 days. Maximum recommended dose + 120mg/24 hours. * 1135 (Given - Provider: Ave Oh RN) prochlorperazine (COMPAZINE) injection 5 mg (COMPLETED) 5 mg, intravenous, Once, On 06/13/25 at 1118, For 1 dose, When administered via IV Push, do notexceed 5 mg per minute * 1137 (Given - Provider: Ave Oh RN) sodium chloride 0.9 % bolus (COMPLETED) 1,000 mL, intravenous, at 984 mL/hr, Administer over 61 Minutes, Once, On 06/13/25 at 1118, For1 dose * 1133 (New Bag - Provider: Ave Oh RN) * 1246 (Stop Bag - Provider: Ave Oh RN) sodium chloride 0.9 % flush 3 mL 3 mL, intravenous, Every 12 hours scheduled, First dose on Sat06/13/25 at 2100 * 204 (Given - Provider: Samantha Elliott RN) * 1200 (Not Given - Provider: Lilian Evans RN - Reason: IV infusing) Medication Order/ sodium chloride 0.9 % infusion 100 mL/hr, intravenous, Continuous, Starting on Sat06/13/25 at 1614, For 1 day * 1649 (New Bag - Provider: Logan Roach RN) * 0556 (New Bag - Provider: Samantha Elliott RN) * 1646 (Due: Order Ending - Provider: Automatic Discharge Provider - Comment: [Order ends at this time. Document the following action when infusion is complete: Stop Bag]) Medication Order// acetaminophen (TYLENOL) tablet 650 mg 650 mg, oral, Every 6 hours PRN, mild pain - pain scale 1-3, temperature greater than 38 C, Starting on 06/13/25 at 1613, [Warning: Total Acetaminophen not to exceed more than 4 grams (4000 mg) in 24 hours] * 2039 (Given - Provider: Samantha Elliott RN) alum-mag hydroxide-simeth (MAALOX) 200-200-20 mg/5 mL suspension 30 mL 30 mL, oral, 4 times daily after meals and at bedtime as needed, dyspepsia, Starting on 06/13/25 at 1613, Look-alike/sound-alike medication - verify indication for use. Jose Juan ortiz., Indications: dyspepsia cyclobenzaprine (FLEXERIL) tablet 10 mg 10 mg, oral, Every 8 hours PRN, muscle spasms, Starting on 06/13/25 at 1723 gadoteridoL (PROHANCE) injection 6.36 mmol 12.72 mL (COMPLETED) 6.36 mmol (0.1 mmol/kg ?? 63.6 kg), intravenous, Once in imaging, contrast, MRI, Starting on Sat06/14/25 at 1053, For 1 dose, VESICANT (RED), Indications: magnetic resonance imaging * 1121 (Given - Provider: Yarely Navarrete - Comment: [id number]) ondansetron (PF) (ZOFRAN) injection 4 mg 4 mg, intravenous, Every 4 hours PRN, nausea, vomiting, Starting on 06/13/25 at 1613, Intravenous administration preferred to be given over 2-5 minutes. sennosides-docusate sodium (SENOKOT-S) 8.6-50 mg 1 tablet 1 tablet, oral, Every 12 hours PRN, constipation, Starting on 06/13/25 at 1613 sodium chloride 0.9 % flush 10 mL (COMPLETED) 10 mL, intravenous, Once in imaging, line care, MRI, Starting on Sat06/14/25 at 1053, For 1 dose * 1121 (Given - Provider: Yarely Navarrete) sodium chloride 0.9 % flush 3 mL 3 mL, intravenous, As needed, line care, before and after each intermittent use, Starting on 06/13/25 at 1613 documented in this encounter Care Teams Team MemberRelationshipSpecialtyStart DateEnd Date Randy Guy MD [address] [place] [address] PCP - GeneralFamily Medicine09/07/24documented as of this encounter
--- OUTSIDE RECORDS SUMMARY | 2025-06-14 09:30 | XMS_ITS ---
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 * Medical History: Objective: * Vitals: Assessment: Plan: * Treatment: * Billing Information: * Visit Code: * Procedure Codes: * Electronic signature of Bella Sullivan MD on 06/23/2025 at 03:51 PM ESTSign off status: Pending * Provider: Mackenzie Sullivan MD Date: 1 Generated for Printing/Faxing/eTransmitting on:?06/23/2025 03:51 PM EST
--- OUTSIDE RECORDS SUMMARY | 2025-06-16 08:30 | XMS_ITS ---
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 Name Role Phone Ezekiel Guy Primary Care Provider REASON FOR VISIT MULTIPLE ISSUES Encounters Encounter Location Date Provider Diagnosis [facility] [address] [place] [address] 06/16/2025 Ezekiel Guy Plan Of Treatment No Information Progress Notes * Leonardo RAND WDOB:1984 (40 yo M)Acc No.[id number]:06/16/2025 UNLOCKED PROGRESS NOTE Progress Note Patient: Leonardo PICKENS :?Rell Guy (MARIA ELENA), MDDOB:1985???Age: 40 Y???Sex:MaleDate:06/16/2025Phone:[phone]:[address] Subjective: * Chief Complaints: * 1 . MULTIPLE ISSUES. * Medical History: Objective: * Vitals: Assessment: Plan: * Treatment: * * Electronic signature of Ezekiel Guy MD, [phone] on 06/23/2025 at 03:51 PM EST Sign off status: PendingVisit Status:?CANC (Cancelled) * Provider: Ciro Guy MD (TTC) Date: 1 Generated for Printing/Faxing/eTransmitting on:?06/23/2025 03:51 PM EST
--- OUTSIDE RECORDS SUMMARY | 2025-06-18 07:52 | XMS_ITS | Continuity of Care Document ---
Author Organization [facility] Address [address] [place] [address] Phone Care Team Providers Care Routing Clerk Name Role Phone Rell Guy MD Primary Care Provider Krishna Carias MD Emergency Provider Fernando Bloom MD Admit Provider Fernando Bloom MD Attending Provider [phone] Fernando Bloom MD Other Provider Care Teams Patient Care Team Team Status: Active Member Role/Relationship Status Dates Rell Guy MD Primary Care Provider Active Patient Care Team Team Status: Active Member Role/Relationship Status Dates Rell Guy MD Primary Care Provider Active Start: June 15, 2025 Krishna Carias MDEmergency ProviderActiveStart: June 15, 2025 Tristen August ProviderActiveStart: June 15, 2025 Fernando Bloom MDAttending ProviderActiveStart: June 15, 2025 Fernando Bloom MDOther ProviderActiveStart: June 15, 2025 Chief Complaint and Reason for Visit Chief Complaint Admit Date MHP June 15, 2025 9 :36pm Reason for Visit Admit Date Depression June 15, 2025 9 :36pm Suicidal ideation June 15, 2025 9 :36pm Reason for Referral Type Reason(s) Provider Provider Contact Information Lorraine hoskins Address Start Date Please call at discharge to schedule for any medical needs.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 Alvin Guerra MDWork Phone: [phone] [facility] [address] Allergies, Adverse Reactions, Alerts Allergen Type Severity Reaction Last Updated Verified Status No Known Allergies Allergy Unknown June 15, 2025 7:05pmYesActive Social History Smoking Status Status Start Date End Date Date of Observa tion Smokes tobacco daily (finding) June 16, 2025 12:27pm Observation Status Observation Response Date of Response Legal Sex Male (finding) Sex Assigned At BirthMaleSept1984 Problems Active Problems Problem Diagnosis/Recorded Date Onset Date Stat us Suicidal ideation June 15, 2025 10:02pm Unknown Active Elevated liver function tests June 07, 2024 1:12p m Unknown Active Depression June 16, 2025 12:27pm Unknown A ctive Overdose June 05, 2024 2:31pm Unknown Ac tive Inactive/Resolved Problems Problem Diagnosis/Recorded Date Onset Date Stat us Substance abuse June 05, 2024 12:30pm Unknown Resolved Obtundation June 05, 2024 6:27pm Unknown Re solved Laceration May 31, 2024 7:16pm Unknown Re solved Suicide June 05, 2024 2:32pm Unknown Re solved Medications Medication Status Dose Units Route Directions Qty Days Refills S tart Date Stop Date End Date Reason(s) Instructions Adherence Aripiprazole (Abilify) 20 mg Tablet Discontinued 20 MG PO Daily December 02, 2022 12:00amOctober 2023 6:56pmBuprenorphine-Naloxone 8-2 mg filmDiscontinuedOctober 2023 12:00amOctober 2024 7:05pmFluoxetine 20 mg capsuleDiscontinuedMGOctober 2023 12:00amOctober 2024 7:05pm Aripiprazole (Abilify) 10 mg gweayeEmpbkyghpahz37TDNHAqyxzBlhmfmw 2023 12:00amOctsaint joseph [facility] 2024 7:05pmQuetiapine 50 mg owzibnUryyso07IMOLIwbpa at bedtimeOctsaint joseph hospital 2024 12:00amUnknownNicotine 21 mg/24 hr Patch 24 HourActive 35DKZJLJLRJDPKNynhp833Ptbagpl 2024 12:00amUnknown Immunizations Immunization Event Date Not Given Reason Dose Number [employer] Lot Number Reason(s) Given Vaccine Information Statement (VIS) Detail Administration Location Tetanus, Diphtheria, Pertussis (Tdap) May 31 Patient Refused [facility] Vital Signs Vital Reading Result Reference Range Collection Date/Time Height 66 [in_i] June 16, 2025 2:13crAqzkcp16.40 kgOctsaint joseph hospital 2024 10:47pmBody Simfsmhiukh52.1 [degF]97.6-99.0Octsaint joseph hospital 2024 7:30amHeart Rate65 /ifq42-500 June 17, 2025 7:30amRespiratory rate18 /aam51-79Lzgkczr 2024 7:30am Oxygen saturation by Pulse iboliuvo18 %95-100Octsaint joseph [facility] 2024 7:30amBP Zbacttxr13 mm[Hg]100-140Octs[facility]ose[facility] 2024 7:30amBP Qyvgpeywq17 mm[Hg]60-100 June 17, 2025 7:30am Advance Directives Advance Directive Response Recorded Date/ Time Advance Directives No December 02 023 2:54pm Insurance Providers Guarantor Leonardo Roach Address [address] [facility] [address] Info.Home Phone: Coverage Status Update:2025 Payer Group Member ID Coverage Type Subscriber Relationship to Subscriber Effective Date Expiration Date [employer] Medicaid Id: [id number] [place] Id: [id number] [address] [place] [address] Home Phone: Email: [email or web address] Encounters Encounter Location(s) Arrival/Admit Date Discharge/Departure Date Discharge/Departure Disposition Provider(s) Non-patient / Non-visit -[facility] Med OutPt June 15, 2025 9:36pm Fernando Bloom MD Recent Diagnosis Onset Date Admit Date Depression Unknown June 15 9:36pm Suicidal ideation Unknown June 15, 2025 9:36pm Assessments Diagnosis Onset Date Resolution Status Admit Date Depression acuteOctober 2024 9:36pmSuicidal ideationacuteOctober 2024 9:36pm Plan of Treatment Future Tests Future scheduled test information is unavailable Pending Tests Pending diagnostic test information is unavailable Future Visits Future appointment information is unavailable Future Procedures Procedure Name Ordered Date Scheduled Date Admit Status Order June 15, 2025 9:57pm Oct justino 2024 9:57pm Discharge Order June 18, 2025 12:28pm Octob er 2024 12:28pm Future Medications Future medication information is unavailable Patient Instructions Instruction Admit Date Depression in adults - Disch arge instructions Know your MedsOctober 2024 9:36pm Hospital Discharge Instructions Additional Instructions Important Contact Information You can call [facility] at [phone] any time day or night if you have emergent questions or question regarding discharge instructions. If at any time you are feeling an increase in your psychiatric symptoms, call your physician or behavioral healthcare provider. If any time you have thoughts of harming yourself or others contact one of the following: Call 8 (available 11/03) Crisis Text Line (available 11/03) text 4HOPE to [phone] [facility] Hope Line (available 8 a.m. Midnight) call [phone] ([phone])
--- OUTSIDE RECORDS SUMMARY | 2025-06-23 15:51 | XMS_ITS | Patient Health Record ---
Author Organization [facility] vice Address [address], [place] [id number] Care Team Providers Care Railroad Mechanic Name Role Phone Bella Sullivan Unavailable [phone] Reason For Referral No Information Plan Of Treatment No Information Insurance Providers Payer Name Payer Address Payer Phone Subscriber Number Group Number Insured Name Patient Relationship to Insured Coverage Start Date Coverage End Date [facility] id [facility] [address] [place] [address] [id number] Anastacio Roachelf - patient is the [id number] 2024[facility] [address] [place], [place] [id number], ChanceSelf - patient is the insurededicdepartment of [facility] [address] [place], [place] [id number], Anastacioelf - patient is the insured 2024
--- OUTSIDE RECORDS SUMMARY | 2025-06-23 15:51 | XMS_ITS | Encounter Summary ---
Author Organization [employer] [facility] tem Address [id number] [address] [place] [address] Care Team Providers Care Fish And Wildlife Biologist Name Role Phone Rell Guy MD Primary Care Provider [phone] Encounter Details DateTypeDepartmentCare Team (Latest Contact Info)Axntzkdccbp42/26/2025Travel Social History Tobacco UseTypesPacks/DayYears UsedDateSmoking Tobacco: Some Days Vaping/E-cigarettesSmokeless Tobacco: CurrentAlcohol UseStandard Drinks/Week CommentsNot Currently0 (1 standard drink = 0.6 oz pure alcohol)ChildcareAnswer Date LspnpktmXmeymbtzzUyenhut55/12/2019EmploymentAnswerDate RecordedEmployment Fllabdm8901/28/2019Hunger ScreeningAnswerDate RecordedWithin the past 12 months we worried whether our food would run out before we got money to buy more.Never True06/14/2025Within the past 12 months the food we bought just didn't last and we didn't have money to get more.Never True06/14/2025Purpose - LifeAnswerDate RecordedPurpose and direction in iuolPuxhtoz11/11/2021ex and Gender Information ValueDate RecordedSex Assigned at KoaapPzyi32/26/2022 2:51 PM EDTLegal SexMale 03/24/2015 11:35 AM EDTGender HpvlgwdiFlvl72/26/2022 2:51 PM EDTSexual EukwdwxxejgTqbgwurf58/26/2022 2:51 PM EDTdocumented as of this encounter Functional Status documented as of this encounter Plan of Treatment DateTypeDepartmentCare Team (Latest Contact Info)Awhpvxvxqrq50/06/2025 3:00 PM ESTOffice Visit [facility] of [address] [address] Jorge Colón S, DO [address] [place] [address] documented as of this encounter Visit Diagnoses Not on filedocumented in this encounter Care Teams Team MemberRelationshipSpecialtyStart DateEnd Date Rell Guy MD [address] [place] [address] PCP - GeneralFamily Medicine09/07/24documented as of this encounter
--- OUTSIDE RECORDS SUMMARY | 2025-06-23 15:51 | XMS_ITS | Clinical Summary ---
Author Organization [employer] tem Address [id number] [address] 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 Name Role Phone Rell Guy MD Primary Care Provider [phone] Allergies Active AllergyReactionsCriticalityNoted VeehXbqexfkcEoxpzbeext05/26/2025 Other Reaction(s): SISTER HAS ALLERGY Medications MedicationSigDispense [...] abuse06/14/2025Hepatitis 06/14/2025KI (acute kidney injury)06/13/2025 Encounters DateTypeDepartmentCare ZubwZkdimawgawo40/26/2025 10:54 AM EDT - 06/14/2025 2:46 PM EDTHospital Encounter [facility] [address] [place] [address] Brock Jay DO Muhammad, Ruqiyya T, MD Shah, Jagruti Nimit, MD ADILSON (acute kidney injury) (Primary Dx); Acute nonintractable headache, unspecified headache type; Abdominal pain, vomiting, and diarrhea Discharge Disposition: Home06/13/20256745Ihjpup24/13/2025 7:40 PM EDT - 05/31/2025 8:16 PM EDTEmergency [facility] [address] [place] [address] Chase Saxena MD Concern about STD in male without diagnosis (Primary Dx) Discharge Disposition: Home05/31/2025Travelfrom Last 3 Months Immunizations ImmunizationAdministration DatesNext HfsDrwt9201/06/2024(),07/31/2018 Social History Tobacco UseTypesPacks/DayYears UsedDateSmoking Tobacco: Some Days Vaping/E-cigarettesSmokeless Tobacco: Current Tobacco Cessation:Ready to Q uit: Not Asked; Counseling Given: Not Answered Alcohol UseStandard Drinks/WeekCommentsNot Currently0 (1 standard drink = 0.6 oz pure alcohol)ChildcareAnswerDate GmxhbgeaMvihguwckPqlynci30/12/2019Employment AnswerDate EnhmvsyaUcrglubdzlFpojdjm08/12/2019Hunger ScreeningAnswerDate RecordedWithin the past 12 months we worried whether our food would run out before we got money to buy more.Never True06/14/2025Within the past 12 months the food we bought just didn't last and we didn't have money to get more.Never True06/14/2025Purpose - LifeAnswerDate RecordedPurpose and direction in life Dlgukow2009/29/2020ex and Gender InformationValueDate RecordedSex Assigned at IyjqlYpzt09/26/2022 2:51 PM EDTLegal DjtJpjc3003/24/2015 11:35 AM EDTGender ZuzcgmoeZnip17/26/2022 2:51 PM EDTSexual EwyabdmwzjeZtevzwma76/26/2022 2:51 PM EDT Last Filed Vital Signs Vital SignReadingTime TakenCommentsBlood Uownpgmb330/7806/14/2025 11:48 AM EDT Srdao989806/14/2025 11:48 AM OMUYjhqccljgag59.8 ??C (98.2 ??F)06/14/2025 11:48 AM EDTRespiratory Nrre9814 11:48 AM EDTOxygen Cjnyzbdbyy68%06/14/2025 11:48 AM EDTInhaled Oxygen Concentration--Sakoje10.6 kg (140 lb 3.2 oz)06/14/2025 4:09 AM YZNQbdoir254.6 cm (5' 6 )06/13/2025 4:42 PM EDTBody Mass Index22.6306/13/2025 4:42 PM EDT Plan of Treatment DateTypeDepartmentCare Team (Latest Contact Info)Vpwgagjceeq90/06/2025 3:00 PM ESTOffice Visit [facility] of [address] [address] [place] [address] [place] [address] Health MaintenanceDue DateLast DoneCommentsTobacco Eyqdonuprh1984 Depression Lhrntihgf94/24/1996COVID-19 Vaccine ( season)2025 04/12/2021Influenza Jkqnrae64/04/2020, 05/25/2020, 05/26/2019, Additional history existsTobacco Abxykdlnp34dult BMI Fgmombwwy43DTaP,Tdap and Td Vaccines (4 - Td or Tdap) , 07/31/2018, 01/24/2011 Goals GoalPatient Goal TypeAssociated ProblemsRecent ProgressPatient-Stated?Author Home with self care Allyson Ruby LSW Note: Evaluation of progress towards goal: Patient will return home with self care Medical Devices Not on file Procedures Procedure NamePriorityDate/TimeAssociated DiagnosisCommentsMR BRAIN W WO CONT Lbwkbfa9806/14/2025 11:24 AM EDT EXTRA TUBES BLUE WEPRccclxu98/27/2025 4:48 AM EDT EXTRA AMSWEIhecwgd63/27/2025 4:48 AM EDT CBC WITH AUTO KDTATMTFGUMZJddghvd35/27/2025 4:48 AM EDT ZAADAUBAABgoranr35/27/2025 4:48 AM EDT COMPREHENSIVE METABOLIC ZTGQSQflisax91/27/2025 4:48 AM EDT COMPREHENSIVE METABOLIC ARLRGCKQE17/26/2025 1:[address] CERVICAL SPINE WO PKQIOIFL13/26/2025 12:[address] BRAIN WO UJFOZDOO18/26/2025 12:14 PM EDT PBGKTVYCVPJNS87/26/2025 11:28 AM EDT COMPREHENSIVE METABOLIC JBRLFNKNI01/26/2025 11:28 AM EDT CBC WITH AUTO JMKDJKVKPAWATVZM97/26/2025 11:28 AM EDT EXTRA TUBES BLUE TRFMcjjihx16/26/2025 11:27 AM EDT EXTRA AGSDOVsdwmln93/26/2025 11:27 AM EDT from Last 3 Months [...] on 06/14/2025 11:37 AM Authorizing ProviderResult TypeResult StatusTaleny Lepe PRINCIPAL ADMINISTRATIVE CLERK-CNPG MRI ORDERABLESFinal Result * Light Blue Top (06/14/2025 4:48 AM EDT) Only the most recent of2 resultswithin the time period is included. ComponentValueRef RangeTest MethodAnalysis TimePerformed AtPathologist Signature Extra TubeAuto Srzaapfe06/27/2025 7:01 AM EDTPTHE [facility]RIST [facility]OSPITAL Specimen (Source)Anatomical Location / LateralityCollection Method / Volume Collection TimeReceived TimeBloodVenous blood / Sahpgjp6206/14/2025 4:48 AM EDT 06/14/2025 6:19 AM EDT Narrative Authorizing ProviderResult TypeResult StatusOumar ZAZUETA BLOOD ORDERABLESFinal ResultPerforming OrganizationAddressCity/State/ZIP CodePhone Number [facility] [address] [place] [address], * (ABNORMAL) CBC auto differential (06/14/2025 4:48 AM EDT) Only the most recent of2 resultswithin the time period is included. ComponentValueRef RangeTest MethodAnalysis TimePerformed AtPathologist Signature WBC5.64 - 11 x10E9/L1 5:31 AM EDTPTHE CHRIST HOSPITALRBC Count4.04(L)4.1 - 5.7 X10E12/L1 5:31 AM EDTPTHE CHRIST HOSPITALHemoglobin12.4(L)13 - 17 g/dL06/14/2025 5:31 AM EDTPTHE CHRIST HOSPITALHematocrit35.9(L)39 - 50 %06/14/2025 5:31 AM EDTPSALEM REGIONAL MEDICAL CENTERV8980 - 100 fL06/14/2025 5:31 AM EDTPSALEM REGIONAL MEDICAL CENTERH30.727 - 34 pg06/14/2025 5:31 AM EDAVITA HEALTH SYSTEM BUCYRUS HOSPITALHC34.532 - 36 g/dL06/14/2025 5:31 AM EDAULTMAN ORRVILLE HOSPITALRDW13.311.5 - 15 %06/14/2025 5:31 AM EDAULTMAN ORRVILLE HOSPITALPlatelet Cmzmo217938 - 450 X10E9/L1 5:31 AM EDT [facility]ITALMPV8.47 - 12 fL06/14/2025 5:31 AM EDT [facility]ITALNeutrophils %82.8%06/14/2025 5:31 AM EDT [facility]ITALLymphocytes %11.5%06/14/2025 5:31 AM EDT [facility] HOSPITALMonocytes %5.3%06/14/2025 5:31 AM EDT [facility]ITALEosinophils %0.1%06/14/2025 5:31 AM EDT [facility]ITALBasophils %0.3%06/14/2025 5:31 AM EDT [facility]ITALNeutrophils Absolute (A)4.71.5 - 6.6 10*3/uL 06/14/2025 5:31 AM EDTPTHE CHRIST HOSPITALLymphocytes Absolute0.6 (L)1.0 - 3.5 10*3/uL06/14/2025 5:31 AM EDAULT[facility] Monocytes Absolute0.30.0 - 0.9 10*3/uL06/14/2025 5:31 AM EDAULTMAN ORRVILLE HOSPITALEosinophils Absolute0.00.0 - 0.4 10*3/uL06/14/2025 5:31 AM EDT [facility]ITALBasophils Absolute0.00.0 - 0.2 10*3/uL 06/14/2025 5:31 AM [facility]PITALDifferential Type AUTOMATED WUPJABFMPING54/27/2025 5:31 AM [facility] Specimen (Source)Anatomical Location / LateralityCollection Method / Volume Collection TimeReceived TimeBloodVenous blood / UnknownVenipuncture / Unknown 06/14/2025 4:48 AM EDT1 5:25 AM EDT Narrative Authorizing ProviderResult TypeResult StatusTaeler Roberth PRINCIPAL ADMINISTRATIVE CLERKAgralogicsLAB BLOOD ORDERABLESFinal ResultPerforming OrganizationAddressCity/State/ZIP CodePhone Number [place] [phone] [place] [address], [place] * Magnesium (06/14/2025 4:48 AM EDT) Only the most recent of2 resultswithin the time period is included. ComponentValueRef RangeTest MethodAnalysis TimePerformed AtPathologist Signature MAGNESIUM2.01.8 - 2.6 mg/dL06/14/2025 5:56 AM [facility]ITALpecimen (Source)Anatomical Location / LateralityCollection Method / VolumeCollection TimeReceived TimeBloodVenous blood / UnknownVenipuncture / Sohqddg2206/14/2025 4:48 AM EDT1 5:26 AM EDT Narrative Authorizing ProviderResult TypeResult StatusTaeler Roberth GARCIAN-CharitasLAB BLOOD ORDERABLESFinal ResultPerforming OrganizationAddressCity/State/ZIP CodePhone Number [facility] [address] [place] [address] [place] [address], [place] * (ABNORMAL) Comprehensive metabolic panel (06/14/2025 4:48 AM EDT) Only the most recent of3 resultswithin the time period is included. ComponentValueRef RangeTest MethodAnalysis TimePerformed AtPathologist Signature ABSIUC170716 - 146 mmol/L1 5:56 AM EDAULTMAN ORRVILLE HOSPITALPOTASSIUM3.93.5 - 5.0 mmol/L1 5:56 AM [facility]OSPITALCHLORIDE10598 - 109 mmol/L1 5:56 AM EDAULTMAN ORRVILLE HOSPITALCARBON TQFTWNO1031 - 32 mmol/L1 5:56 AM EDT [facility]ITALANION GAP95 - 15 mmol/L1 5:56 AM EDT [facility]OSPITALBLOOD UREA SNHBBLFT158 - 23 mg/dL06/14/2025 5:56 AM [facility] HOSPITALCREATININE1.030.70 - 1.20 mg/dL 06/14/2025 5:56 AM [facility]OSPITALComment:METHOD TRACEABLE TO IDMS CVMBJBCJSTGPSJD599(H)65 - 99 mg/dL06/14/2025 5:56 AM EDT [facility]OS[facility]ITALCALCIUM8.2(L)8.5 - 10.5 mg/dL06/14/2025 5:56 AM [facility] HOSPITALTOTAL PROTEIN6.16.0 - 8.0 g/dL 06/14/2025 5:56 AM [facility] HOSPITALALBUMIN3.33.2 - 5.3 g/dL06/14/2025 5:56 AM [facility]OSPITALALKALINE VBMXEPNXMUM4316 - 130 U/L1 5:56 AM [facility]ITALAST69(H)<=41 U/L1 5:56 AM EDAULTMAN ORRVILLE [facility]OSPITALALT148(H)<=40 U/L1 5:56 AM [facility] HOSPITALBILIRUBIN,TOTAL0.40.3 - 1.2 mg/dL06/14/2025 5:56 AM [facility] HOSPITALEGFR Non-Race Dependent>90>=60 ml/min/1.73sq.m1 5:56 AM [facility]ITALComment: eGFR not reported due to non-numeric value for Creatinine. Reported eGFR is based on the CKD-EPI 2020 equation that does not use a race coefficient. Specimen (Source)Anatomical Location / LateralityCollection Method / Volume Collection TimeReceived TimeBloodVenous blood / UnknownVenipuncture / Unknown 06/14/2025 4:48 AM EDT1 5:26 AM EDT Narrative Authorizing ProviderResult TypeResult StatusTaeler Roberth GARCIAN-CNPLAB BLOOD ORDERABLESFinal ResultPerforming OrganizationAddressCity/State/ZIP CodePhone Number [facility] [address] [facility] [place] [address], * CT cervical spine without contrast (06/13/2025 [...] images are obtained. All CT scans at [facility] use dose modulation, iterative reconstruction, [...] 12:22 PM Authorizing ProviderResult TypeResult StatusJessjessica Mary PRINCIPAL ADMINISTRATIVE CLERK-[facility] CT ORDERABLESFinal Result * CT brain [...] 12:17 PM Authorizing ProviderResult TypeResult StatusJessjessica Mary PRINCIPAL ADMINISTRATIVE CLERK-CNPIMG CT ORDERABLESFinal Result from Last 3 Months Insurance * Guarantor: [facility] TypeRelation to PatientDate of PhoneBilling AddressCorporateOther [address] [place] [address] [place] [address] [place] [address] * Guarantor: [facility], Client/SubmitterAccount TypeRelation to PatientDate of BirthPhoneBilling AddressThird Alliance Party LiabilityOther [address] [place] [address] [place] [address] [place] [address] Advance Directives * Full Code (Latest Code Status on File) Date ActivatedDate GmubdioypvkBwksovdv13/26/2025 4:13 PM10 4:57 PM Care Teams Team MemberRelationshipSpecialtyStart DateEnd Date Rell Guy MD [address] [place] [address] PCP - GeneralMercyone [facility]imghar Medical Centerly Medicine09/07/24
--- OUTSIDE RECORDS SUMMARY | 2025-06-23 15:52 | XMS_ITS | Patient Health Record ---
Author Organization [employer] [facility] [employer] Go[employer] es Address [address] [place] [address] Care Team Providers Care Shop Worker Name Role Phone Dr. Delano Still Primary Care Provider [phone] Reason For Referral No Information Medications Medication [...] Start Date Coverage End Date zDENTAL DQ [facility] [place]-termed [address] [place] [address] [id number] OHPHCP Leonardo Roach Self - patient is the insured zDental Medicaid ABD after [facility] CHP-termed [address] [place] [id number], ChanceSelf - patient is the cepvxon37 2021
--- OUTSIDE RECORDS SUMMARY | 2025-06-23 15:52 | XMS_ITS | Patient Health Record ---
Author Organization The [facility] in [place] Address [address] [place] [address] Care Team Providers Care Science Job Titles Name Role Phone Ezekiel Bosch Primary Care Provider Allergies Allergen (clinical drug ingredient) Drug/Non Drug Allergy documented on EMR Reaction Allergy Type Onset Date Status PenicillinSISTER HAS ALLERGYDrug AllergyActive Results Component Value Reference Range Notes THYROID ANTIBODIES Reviewed date:09/13/2024 11:57:14 AM Interpretation: Performing Lab: Notes/Report: [facility] , Thyroid Peroxidase (TPO) Ab 12 0-34 IU/mL Thyroglobulin Antibody<1.00.0-0.9 IU/mL Thyroglobulin Antibody measured by Kit Hussein Methodology It should be noted that the presence of thyroglobulin antibodies may not be pathogenic nor diagnostic, especially at very low levels. The assay contact lens manufacturer has found that four percent of individuals without evidence of thyroid disease or autoimmunity will have positive TgAb levels up to 4 IU/mL. Performed at: - [facility] [id number] Sales Operations Associate: Chad Knowles PhD, Phone: [phone] Performing Lab:see note - [facility] LBUS abdomen limited Reviewed date:09/03/2024 07:44:31 PM Interpretation: Performing Lab: Notes/Report: Source Facility: [place] [address] [place] [address] Ultrasound Report Signed with Thi Patient: LEONARDO RAND MR#: [id number] : 1985 Acct:[id number] Age/Sex: 39 / M ADM Date: 09/03/24 Loc: US Attending Dr: Randy Bosch M.D. Ordering Physician: Randy Bosch M.D. Date of Service: 09/03/24 Procedure(s): US abdomen limited Accession Number(s): [id number] cc: Randy Bosch M.D. ADDENDUM The [address] [address] Patient Name: LEONARDO RAND MRN: [id number] date: 1985 Sex: M Assigned Patient Location: US Current Patient Location: US Accession/Order Number: [id number] Exam Date: 09/03/2024 11:10 Report Date: 09/03/2024 [...] Addendum Cosigned By: DD/ TD/TT: / The [address] [address] Patient Name: LEONARDO RAND MRN: [id number] date: 1985 Sex: M Assigned Patient Location: US Current Patient Location: US Accession/Order Number: [id number] Exam Date: 09/03/2024 11:10 Report Date: 09/03/2024 [...] Signed By: 09/03/24 1250 DD/ 1247 TD/TT: Surgical Oncologist:CBC AUTO DIFF Reviewed date:09/09/2024 03:02:24 PM Interpretation: Performing Lab: Notes/Report: [facility] ,White Blood Count5.74.0-11.0 10 3/uLRed Blood Count5.164.70-6.10 10 6/uL Cyvnwdgtzd86.114.0-18.0 g/sTWmatkwxrny07.342.0-54.0 %Mean Corpuscular Ttkyxy25.7 80.0-94.0 fLMean Corpuscular Bzrdqpeshy45.225.9-34.0 pgMean Corpuscular HGB Conc 34.029.9-35.2 g/dLRed Cell Distribution Width12.211.0-15.0 %Platelet Ulxnd459 150-450 10 3/uLMean Platelet Volume9.59.5-13.5 fLNeutrophils Percent Auto41.4 43.0-75.0 %Lymphocytes Percent Auto43.420.5-60.0 %Monocytes Percent Auto11.41.7- 12.0 %Eosinophils Percent Auto3.30.9-7.0 %Basophils Percent Auto0.50.2-2.0 % Immature Granulocytes Pct Auto0.00.0-0.5 %Neutrophils Absolute Auto2.41.4-6.5 10 3/uLLymphocytes Absolute Auto2.51.2-3.8 10 3/uLMonocytes Absolute Auto0.70.3-0.8 10 3/uLEosinophils Absolute Auto0.20.0-0.7 10 3/uLBasophils Absolute Auto0.00.0- 0.1 10 3/uLImmature Granulocytes Abs Auto0.000.00-0.03 10 3/uLPerforming Lab:see note - [facility] LBFREE T3 Reviewed date:09/09/2024 03:02:24 PM Interpretation: Performing Lab: Notes/Report: [facility] ,Free T32.312.18-3.98 pg/mLPerforming Lab:see [facility] LB GLYCOHEMOGLOBIN A1C Reviewed date:09/09/2024 03:02:24 PM Interpretation: Performing Lab: Notes/Report: [facility] ,Glycohemoglobin A1C5.04.5-6.2 % ADA RECOMMENDED LIMIT 4.0 - 6.0 ADA THERAPEUTIC TARGET < 7.0 ACTION SUGGESTED > 7.0 Estimated Average Lsdbupx73Jtksuowwsq Lab:see [facility] - [facility] LB LIPID PROFILE Reviewed date:09/09/2024 03:02:24 PM Interpretation: Performing Lab: Notes/Report: [facility] ,Ffwegbdfafnjp091<=150 mg/qCWocptafyfqz497<=200 mg/dLHDL Ieuiyoeewxz5789-43 mg/dL > or =60 mg/dl - LOW CARDIOVASCULAR RISK <40 mg/dl - HIGH CARDIOVASCULAR RISK LDL Cholesterol Fkxnmpsboc92.0 <100 mg/dl OPTIMAL 100-129 mg/dl NEAR OR ABOVE OPTIMAL 130-159 mg/dl BORDERLINE HIGH 160-189 mg/dl HIGH >190 mg/dl VERY HIGH VLDL UQFIHHKXVOO02.6Chol HDL Ratio2.8 3.3 - 4.4 LOW RISK 4.4 - 7.1 AVERAGE RISK 7.1 - 11.0 MODERATE RISK >11.0 HIGH RISK Performing Lab:[facility] LBPROF 14(COMP METB) Reviewed date:09/09/2024 03:02:24 PM Interpretation: Performing Lab: Notes/Report: [facility] ,Luzmnz916170-931 mmol/LPotassium3.73.5-5.1 mmol/LLyncytjt65324-958 mmol/LCarbon Phxtsgu79.121.0-32.0 mmol/LAnion Gap12.5Kaxmvju56047-109 mg/dLBlood Urea Erzwfcai55.07.0-18.0 mg/dLCreatinine1.340.70-1.30 mg/dLEstimated GFR ( Susana>60>=60 mL/min/1.73m 2Estimated GFR (Non- Ame59>=60 mL/min/1.73m 2 BUN Creatinine Ratio11.3Thkhbnm2.98.5-10.1 mg/dLBilirubin Total0.90.2-1.0 mg/dL Aspartate Amino Rwqvjpjgfcf47632-25 U/LAlanine Qhwleajtthhmwvmn01574-90 U/L Alkaline Nyqsruvtpds1468-653 U/LTotal Protein7.56.4-8.2 g/dLAlbumin Level3.93.4- 5.0 g/dLGlobulin3.6Albumin Globulin Ratio1.1Performing Lab:see noteML - [facility] LBPSA SCREENING Reviewed date:09/09/2024 03:02:24 PM Interpretation: Performing Lab: Notes/Report: [facility] ,Prostate Specific Antigen Scrn0.31<=4.00 ng/mLPerforming Lab:see noteML - [facility] LBT4 Reviewed date:09/09/2024 03:02:24 PM Interpretation: Performing Lab: Notes/Report: [facility] ,T4 Rstdpgrms15.604.50-12.10 ug/dLPerforming Lab:see noteML - [facility] LBTSH Reviewed date:09/09/2024 03:02:24 PM Interpretation: Performing Lab: Notes/Report: [facility] ,Thyroid Stimulating Hormone0.9970.358-3.740 uIU/mLPerforming Lab:see noteML - [facility] LB Reason For Referral Diagnosis 1 Abscess (L02.91) Referral Organization [facility] Referring Provider First Name Ezekiel Referring Provider Last Name Malena Referring Provider Speciality [facility] Referred Provider Krishna Nur Referred Provider Specialty General Surg arash Referral Priority Routine Reason on top of nose Diagnosis 1 Nasal mass (J34.9) Referral Organization [facility] Referring Provider First Name Ezekiel Referring Provider Last Name Malena Referring Provider Speciality [facility] Referred Provider Denise Coello Referred Provider Specialty Otolaryngolo gy Referral Priority Routine Medications Medication SIG (Take, Route, Frequency, Duration) Notes Start Date End Date Status SEROquel 50 MG 1 tablet at bedtime Orally Once a day 5ActiveSildenafil Citrate 100 MG1 tablet as needed Orally Once a day; Duration: 30 day(s)5Active Social History Tobacco Use: Social History Observation Description Date Details (start date - stop date) Current Smoker NA - NA Tobacco Use/Smoking Question Answer Notes Patient is a current smoker AUDIT-C (Standard) Question Answer Notes Did you have a drink containing alcohol in the p ast year? No Bmgyyf5RrraqskyaaajhjHfgmhugdAgwkrmn Notes: Marijuana Use Marijuana Use Marijuana Use Marijuana Use Problems Problem Type SNOMED Code ICD Code Onset Dates Problem Status W/U Status Risk Notes Problem Hypotension (60965715) Hypotension (I95.9 ) ActiveconfirmedProblemAnxiety (57089195)Anxiety (F41.9)ActiveconfirmedProblem Hepatitis C (78615364)Hepatitis C (B19.20)ActiveconfirmedProblemPosttraumatic stress disorder (80178227)PTSD (post-traumatic stress disorder) (F43.10)Active confirmedProblemInsomnia (583626383)Insomnia (G47.00)ActiveconfirmedProblem Chronic diarrhea (598813225)Chronic diarrhea (K52.9)ActiveconfirmedProblem Diarrhea (21652369)Diarrhea (R19.7)ActiveconfirmedProblemAbscess (49638337) Abscess (L02.91)ActiveconfirmedProblemMemory loss (90009933)Memory loss (R41.3) ActiveconfirmedProblemOpioid abuse (4152466)Narcotic abuse (F11.10)Active confirmedProblemBenign prostatic hyperplasia (032757501)Prostate hypertrophy (N40.0)ActiveconfirmedProblemLumbar radiculopathy (735376802)Chronic lumbar radiculopathy (M54.16)ActiveconfirmedProblemBipolar affective disorder (81632341)Affective bipolar disorder (F31.9)ActiveconfirmedProblemAphthous ulcer of mouth (723772887)Aphthous ulcer of tongue (K12.0)ActiveconfirmedProblemMass of nose (finding) (639864384)Nasal mass (J34.9)ActiveconfirmedProblemStimulant dependence (666507503)Stimulant dependence (F15.20)Activeconfirmed Vital Signs Temperature 98.1 degrees Fahrenheit 09/03/2024 Blood pressure bnvauqsdy50 mm Hg06/23/20254682Izzttk08 in06/23/2025lood pressure mm Hg06/23/20259453Isaonu602.8 lbs108/23/2024BMI22.24 kg/m206/23/2025 Encounters Encounter Location Date Provider Diagnosis [address] [address] 09/03/2024 Ezekiel Hoy [address] [address] 09/03/2024Doug [address] [address]/Doug [address] [address]/16/2025Doug HoyAbscess L02.91 ; Insomnia G47.00 and Memory loss R41.3B[address] [address]/05/2025Doug HoyHepatitis C B19.20 and Chronic diarrhea K52.[address] [address] 06/23/2025Doug HoyInsomnia G47.00 ; Diarrhea R19.7 and Nasal mass J34.9B[address] [address]/ Ezekiel HoyAcute non-recurrent sinusitis, unspecified location J01.90 and Nasal congestion R09.81[facility] [facility] [place] [address]/12/2024Doug [facility] [facility] [place] [address]/12/2024Doug [facility] [facility] [place] [address]/ou[facility] [facility] [place] [address]/[facility] [facility] [place] [address]/ Ezekiel [facility] [facility] [place] [address] 08/21/2024Doug [facility] [facility] [place] [address]/Doug HoySoft tissue mass M79.9BConejos [facility] [facility] [place] [address]/Doug HoySoft tissue mass M79.9BHaxt[facility] [facility] [place] [address]/Doug [facility] [facility] [place] [address]/Doug [facility] [facility] [place] [address]/Doug HoyAbnormal thyroid blood test R79.89 and Abscess L02.91[facility] [facility] [place] [address]/05/2025Doug HoyAbdominal pain R10.9BHaxtun Hospital District[address] [facility] [place] [address]/02/2025Doug [facility] [facility] [place] [address] 10/23/2024Doug [facility] [facility] [place] [address]/07/2025Doug HoyEar infection H66.90[facility] [facility] [place] [address]/Doug [facility] [facility] [place] [address]/ Ezekiel [facility] [facility] [place] [address]/Doug HoyBVH [facility] [facility] [place] [address]/Doug [facility] [facility] [place] [address]/Doug Hoy Assessments Encounter Date Diagnosis (ICD Code) Assessment Notes Treatment Notes Treatment Clinical Notes Section Notes 09/03/2024 Abscess (ICD-10 - L02.91) 09/03/2024Insomnia (ICD-10 - G47.00)09/03/2024Memory loss (ICD-10 - R41.3) 10/26/2024Hepatitis C (ICD-10 - B19.20)10/26/2024hronic diarrhea (ICD-10 - K52.9)5Acute non-recurrent sinusitis, unspecified location (ICD-10 - J01.90)Rest and drink more liquids, especially water. You may use a humidifier or vaporizer to help keep the drainage moist. Eobv-vzy-qzzemhi Nasal Saline may help the stuffy and runny nose. Use Ibuprofen and or Tylenol as needed for fever, chills, body aches or pain. Children 5 years old should not be given wjlb-qfc-cckromb cough and cold medications such as guaifenesin and dextromethorphan. If you're over age 5, you may try hpsa-veb-hfxofmn cold medications such as guaifenesin and dextromethorphan, [...] - M79.9)09/09/2024bnormal thyroid blood test (ICD-10 - R79.89)06/23/2025 Insomnia (ICD-10 - G47.00)06/23/2025Diarrhea (ICD-10 - R19.7)09/28/2024bdominal pain (ICD-10 - R10.9)10/28/2024Ear infection (ICD-10 - H66.90)06/23/2025Nasal mass (ICD-10 - J34.9)09/09/2024bscess (ICD-10 - L02.91)11/06/2024Nasal congestion (ICD-10 - R09.81) Plan Of Treatment Pending Test Test Name Order Date CMP (COMPLETE METABOLIC PANEL) 4 SED RATE (ESR) 10/28/2024 HEMOGLOBIN A1C (GLYCO) 09/03/2024 HEMOGLOBIN A1C (GLYCO) 04/29/2024 LIPID PANEL (CHOL/TRIG/HDL/LDL) 09/03/19 25 CBC WITH DIFF 09/03/2024 CBC WITH DIFF 04/29/2024 CARDIO Echocardiogram 04/03/2024 Stool For Leukocytes 06/23/2025 ACUTE HEPATITIS PANEL 05/05/2024 CMP - Comprehensive Metabolic Panel 09/19 CMP - Comprehensive Metabolic Panel 10/17 PT and PTT 09/28/2024 PSA, TOTAL 09/03/2024 US Abdomen - Limited 09/03/2024 STOOL OCCULT BLOOD 09/03/2024 AMMONIA 09/28/2024 AMYLASE 09/28/2024 CBC AUTO DIFF 10/28/2024 CRP 10/28/2024 LIPASE 09/28/2024 LIVER PROFILE 2024 SED RATE WESTERGREN 04/29/2024 MRI BRAIN WO CON 04/03/2024 US KIDNEYS 11/21/2022 XR CHEST 2 V 04/29/2024 THYROID PANEL (T4/TSH/FREE T3) 5 THYROID PANEL (T4/TSH/FREE T3) 4 THYROID PANEL (T4/TSH/FREE T3) 4 Holter Monitor - 3 days up to 14 days OCCULT BLOOD X 1, STOOL 06/23/2025 Ova + Parasite Exam 06/23/2025 NM thyroid w uptake 09/09/2024 US abdomen complete 08/31/2024 US abdomen complete 09/28/2024 US Gallbladder/Liver/Pancreas 05/05/2024 CMP (COMP MET SORIANO) w/eGFR CKD-EPI 2024 Insurance Providers Payer Name Payer Address Payer Phone Subscriber Number Group Number Insured Name Patient Relationship to Insured Coverage Start Date Coverage End Date [employer] [place] [employer] [address] [place] [phone] [id number] Anastacio Randelf - patient is the insured Medical (General) History Medical History History ICD Code Chronic lumbar radiculopathy M54.16 Stimulant dependence F15.20 PTSD (post-traumatic stress disorder) F4 3.10 Chronic diarrhea K52.9 Insomnia G47.00 Affective bipolar disorder F31.9 Hepatitis C B19.20 Narcotic abuse F11.10 Anxiety F41.9 Eczema L30.9 Surgical History Surgery Date(Month/Year) Knee Surgery- Right Hospitalization History Reason Date(Month/Year) Mental Health [facility]
--- OUTSIDE RECORDS SUMMARY | 2025-06-23 15:53 | XMS_ITS | CCD ---
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 above:Performed By: #### CMP, LIPID, CBC, [id number], TSH3 wRFLX, ETOH #### [facility] [address] [place] [address] USAKetones [Presence] in Urine by Test stripOrdered By: Krishna Carias on 84-90-2779Trvevbn Ql (U)NegativeNormalNegPomerene HospitalComment on above:Order Comment: Name Collection Type:: Clean-Voided MidstreamPerformed By: #### UA, URDS #### [facility] [address] [place] [address] USALeukocyte esterase [Presence] in Urine by Test strip Ordered By: Krishna Carias on 05-22-8319Ocnzpqpqf esterase Test strip Ql (U) NegativeNormalNegativeCommunity Regional Medical CenterComment on above:Order Comment: Name Collection Type:: Clean-Voided MidstreamPerformed By: #### UA, URDS #### [facility] [address] [place] [address] USALeukocytes [#/volume] corrected for nucleated erythrocytes in Blood by Automated counOrdered By: Krishna Carias on 49-58-2408TUX corrected for nucl RBC Auto (Bld) [#/Vol]6.7 10*3/uL4.1-10.5FSt. John of God HospitalLeukocytes [#/volume] in Blood by Automated countOrdered By: Krishna Carias on 96-92-8564MGW (Bld) [#/Vol]6.7 10*3/uLNormal4.1-10.5FSt. John of God HospitalComment on above:Performed By: #### CMP, LIPID, CBC, [id number], TSH3 wRFLX, ETOH #### [facility] [address] [place] [address] USALipid Panelon 74-45-1993Gatyigjtgvr [Mass/Vol]165 mg/dL Khjntr677-116Uoo [facility] Physician GroupComment on above:Result Comment: Chol less than 200 mg/dl low risk Chol 201-239 mg/dl borderline risk Chol 240 mg/dl and greater high riskPerformed By: #### CMP, LIPID, CBC, [id number], TSH3 wRFLX, ETOH #### [facility] [address] [place] [address] USACholesterol in HDL [Mass/Vol]52 mg/lKKmluom21-13Qbg [facility] Physician GroupComment on above:Result Comment: HDL CHOL ATP-III CLASSIFICATION Cardiovascular Risk HDL > or equal to 60 mg/dL LOW HDL < 40 mg/dL HIGHPerformed By: #### CMP, LIPID, CBC, [id number], TSH3 wRFLX, ETOH #### [facility] [address] [place] [address] USACholesterol.total/Cholesterol in HDL [Mass ratio]3.2 {ratio}Normal<5.0The [facility] Stennis Memorial HospitalComment on above:Performed By: #### CMP, LIPID, CBC, [id number], TSH3 wRFLX, ETOH #### [facility] [address] [place] [address] USALDL Cholesterol,Mvmmdsbkta89 mg/dLNormal0-100The [facility] Stennis Memorial HospitalComment on above:Result Comment: LDL ATP III CLASSIFICATION LDL less than 100 mg/dL Optimal LDL 100-129 mg/dL Near or above optimal LDL 130-159 mg/dL Borderline high LDL 160-189 mg/dL High LDL greater than 189 mg/dL Very highPerformed By: #### CMP, LIPID, CBC, [id number], TSH3 wRFLX, ETOH #### [facility] [address] [place] [id number] USATriglyceride w/Enhtxs098 mg/dLNormal0-149The [facility] St[facility] Memorial HospitalComment on above:Result Comment: TRIG ATP III CLASSIFICATION TRIG less than 150 mg/dL Normal TRIG 150-199 mg/dL Borderline high TRIG 200-500 mg/dL High TRIG greater than 500 mg/dL Very high Standard traceable to the Center for Disease Conrtrol and Prevention (CDC) test method.Performed By: #### CMP, LIPID, CBC, [id number], TSH3 wRFLX, ETOH #### [address] [address] USAVLDL LHPSZMDHZBZ97 mg/dLNormalThe Cone Health Physician GroupComment on above:Performed By: #### CMP, LIPID, CBC, [id number], TSH3 wRFLX, ETOH #### [address] [address] USALymphocytes [#/volume] in Blood by Automated countOrdered By: Krishna Carias on 16-68-5543Ewcsfmsyrhz (Bld) [#/Vol]3.0 10*3/uLNormal 1.00-4.8[facility] Medical CenterComment on above:Performed By: #### CMP, LIPID, CBC, [id number], TSH3 wRFLX, ETOH #### [address] [address] USALymphocytes/100 leukocytes in Blood by Automated count Ordered By: Krishna Carias on 04-30-7194Awlerjwfbcb/100 WBC (Bld)44.1 %Normal. [facility] Medical CenterComment on above:Performed By: #### CMP, LIPID, CBC, [id number], TSH3 wRFLX, ETOH #### [facility] [address] [place] [id number] [facility] [Entitic mass] by Automated countOrdered By: Krishna Carias on 62-40-6342QCK (RBC) [Entitic mass]30.6 krIhoyog11.5-35.2FSt. John of God HospitalComment on above:Performed By: #### CMP, LIPID, CBC, [id number], TSH3 wRFLX, ETOH #### [facility] [address] [place] [address] USAMCHC Auto (RBC) [Mass/Vol]Ordered By: Krishna Carias on 13-89-6914RNWF (RBC) [Mass/Vol]34.3 g/dL32.5-35.6FSt. John of God HospitalMCV [Entitic volume] by Automated countOrdered By: Krishna Carias on 26-19-6732ECF (RBC) [Entitic vol]89.2 cLPdlcyc25.5-101[facility] Medical CenterComment on above:Performed By: #### CMP, LIPID, CBC, [id number], TSH3 wRFLX, ETOH #### [facility] [address] [place] [address] USAMonocyte distribution width [Entitic volume] in Blood by AutomatedOrdered By: Krishna Carias on 12-62-0674Otigcoiz distribution width Auto (Bld) [Entitic vol]16.68 %0.00-20.00[facility] Monocytes [#/volume] in Blood by Automated countOrdered By: Krishna Carias on 87-63-1898Umrrhoepf (Bld) [#/Vol]0.5 10*3/uLNormal0.0-0.8[facility] Medical CenterComment on above:Performed By: #### CMP, LIPID, CBC, [id number], TSH3 wRFLX, ETOH #### [facility] [address] [place] [address] USAMonocytes/100 leukocytes in Blood by Automated count Ordered By: Krishna Carias on 98-09-1792Ewwbpvoex/100 WBC (Bld)7.2 %Normal. [facility] Medical CenterComment on above:Performed By: #### CMP, LIPID, CBC, [id number], TSH3 wRFLX, ETOH #### [facility] [address] [place], [place] [address] USANeutrophils [#/volume] in Blood by Automated countOrdered By: Krishna Carias on 62-12-2587Clyxzhpsbuc (Bld) [#/Vol]3.1 10*3/uLNormal 1.8-7.7FSt. John of God HospitalComment on above:Performed By: #### CMP, LIPID, CBC, [id number], TSH3 wRFLX, ETOH #### [facility] [address] [place] [address] USANeutrophils/100 leukocytes in Blood by Automated count Ordered By: Krishna Carias on 70-64-9736Wrpufxahxsp/100 WBC (Bld)45.6 %Normal. [facility] Medical CenterComment on above:Performed By: #### CMP, LIPID, CBC, [id number], TSH3 wRFLX, ETOH #### [address] [address] USANitrite Test strip Ql (U)Ordered By: Krishna Carias on 83-27-9680Mwuanae Ql (U)NegativeNegPomerene HospitalNo Panel InformationOrdered By: Krishna Carias on 57-28-8899Oextrqll Creatinine Clearance (Chem65.00[facility] Medical CenterNucleated erythrocytes [Presence] in Blood by Automated countOrdered By: Krishna Carias on 06-15-2025 Nucleated RBC Auto Ql (Bld)0.1 /100{WBC}0-0.5FSt. John of God Hospital Opiates [Presence] in Urine by Screen methodOrdered By: Krishna Carias on 32-14-4256Pujwnvp Screen Ql (U)NegativeNegativeCommunity Regional Medical Center Phencyclidine Screen Ql (U)Ordered By: Krishna Carias on 37-41-5703Dnbugzzpwjzco Ql (U)NegativeNegPomerene HospitalPlatelet mean volume [Entitic volume] in Blood by Automated countOrdered By: Krishna Carias on 38-52-0452Mfbcpeey mean volume (Bld) [Entitic vol]7.5 fLNormal6.6-10.1FSt. John of God HospitalComment on above:Performed By: #### CMP, LIPID, CBC, [id number], TSH3 wRFLX, ETOH #### [facility] [address] [place] [address] USAPlatelets [#/volume] in Blood by Automated countOrdered By: Krishna Carias on 57-69-1067Iqpmefihv (Bld) [#/Vol]294 10*3/jDCfkptt929-985 [facility] CenterComment on above:Performed By: #### CMP, LIPID, CBC, [id number], TSH3 wRFLX, ETOH #### [place] [address] USAPotassium [Moles/volume] in Serum or PlasmaOrdered By: Krishna Carias on 17-65-9193Uxkkzcdvl [Moles/Vol]3.5 mmol/LNormal3.5-5.1 [facility] CenterComment on above:Performed By: #### CMP, LIPID, CBC, [id number], TSH3 wRFLX, ETOH #### [place] [id number] USAProtein Test strip (U) [Mass/Vol]Ordered By: Krishna Carias on 54-08-8824Vqlehwj (U) [Mass/Vol]NegativeNegPomerene HospitalProtein [Mass/volume] in Serum or PlasmaOrdered By: Krishna Carias on 30-56-2465Jgjzver [Mass/Vol]6.8 g/dLNormal6.4-8.9[facility] Medical CenterComment on above:Performed By: #### CMP, LIPID, CBC, [id number], TSH3 wRFLX, ETOH #### [place] [id number] USASerum globulin measurement by calculation (mass/volume) Ordered By: Krishna Carias on 10-77-3444Axuyqvxr (S) [Mass/Vol]2.8 g/dLNormal [facility] CenterComment on above:Performed By: #### CMP, LIPID, CBC, [id number], TSH3 wRFLX, ETOH #### [facility] [address] [place] [address] USASerum or plasma albumin/globulin mass ratioOrdered By: Krishna Carias on 89-54-9995Vosvxbd/Globulin [Mass ratio]1.4 {ratio}Normal [facility] CenterComment on above:Performed By: #### CMP, LIPID, CBC, [id number], TSH3 wRFLX, ETOH #### [facility] [address] [place] [address] USASerum or plasma anion gap determinationOrdered By: Krishna Carias on 97-39-1978Fzfin gap [Moles/Vol]13.0 mmol/LNormal6.0-15.0[facility] CenterComment on above:Performed By: #### CMP, LIPID, CBC, [id number], TSH3 wRFLX, ETOH #### [facility] [address] [place] [address] USASerum or plasma ethanol measurement (mass/volume)Ordered By: Krishna Carias on 47-30-4009Gpdyegd [Mass/Vol][facility] Medical CenterComment on above:Test not performedSodium [Moles/volume] in Serum or PlasmaOrdered By: Krishna Carias on 57-83-5956Wyyjrg [Moles/Vol]138 mmol/LNormal 136-145[facility] Medical CenterComment on above:Performed By: #### CMP, LIPID, CBC, [id number], TSH3 wRFLX, ETOH #### [facility] [address] [place] [address] USASpecific gravity Test strip (U) [Rel density]Ordered By: Krishna Carias on 61-23-5251Zhbjigxq gravity (U) [Rel density]1.0061.001-1.030 [facility] Medical CenterThyroid Stim Hormone w/Rflxon 47-07-4545Piguzvu Stim Hormone w/Rflx4.89 u[iU]/mLNormal0.45-5.33The [facility] Comment on above:Performed By: #### CMP, LIPID, CBC, [id number], TSH3 wRFLX, ETOH #### [place] [address] USAUrea nitrogen [Mass/volume] in Serum or PlasmaOrdered By: Krishna Carias on 19-93-6842Shnj nitrogen [Mass/Vol]12 mg/dLNormal7-[facility] Medical CenterComment on above:Performed By: #### CMP, LIPID, CBC, [id number], TSH3 wRFLX, ETOH #### [facility] [address] [place], [place] [address] USAUrinalysison 24-32-7375Udmqhzlpc,UrineNegativeNormal NegativeThe Cone Health Physician GroupComment on above:Order Comment: Name Collection Type:: Clean-Voided MidstreamPerformed By: #### UA, URDS #### [place] [address] USAGlucose Ql (U)NormalNormalNormalThe Cone Health Physician GroupComment on above:Order Comment: Name Collection Type:: Clean-Voided MidstreamPerformed By: #### UA, URDS #### [place] [address] USANitrite,UrineNegativeNormalNegativeWinter Haven Hospital Physician GroupComment on above:Order Comment: Name Collection Type:: Clean-Voided MidstreamPerformed By: #### UA, URDS #### [place] [phone] USAOccult Blood,UrineNegativeNormalNegativeThe Cone Health Physician GroupComment on above:Order Comment: Name Collection Type:: Clean- Voided MidstreamResult Comment: PERFORMED BY: [place] [address] PATHOLOGIST LEATHER SHAVER GUILLERMINA BARROS M.D.Performed By: #### UA, URDS #### [place] [address] USAProtein,UrineNegativeNormalNegativeThe Cone Health Physician GroupComment on above:Order Comment: Name Collection Type:: Clean-Voided MidstreamPerformed By: #### UA, URDS #### [place] [address] USASpecificy Keeler,Urine1.307Cobszs6.001-1.030The [facility] Health Physician GroupComment on above:Order Comment: Name Collection Type:: Clean- Voided MidstreamPerformed By: #### UA, URDS #### [place] [phone] USAUrobilinogen,UrineNormalNormalNormalThe Cone Health Physician GroupComment on above:Order Comment: Name Collection Type:: Clean- Voided MidstreamPerformed By: #### UA, URDS #### [place] [phone] USAUrobilinogen Test strip (U) [Mass/Vol]Ordered By: Krishna Carias on 12-60-7710Txbkrjvpuoql (U) [Mass/Vol]Normal mg/dLNoFisher-Titus Medical CenterVitamin D 25 Hydroxy Totalon 55-54-8988Prjhxmd D 25 Hydroxy Total70.6 ng/zMHyrcia46-746Ywe [facility] Physician GroupComment on above:Result Comment: VITAMIN D STATUS 25(OH)VITAMIN D RANGE (ng/mL) Deficient <20 Insufficient 20 to <30 Sufficient 30 to 100 Reference: Denisse MF,Yuni NC, Josh GARRETT, et al. Evaluation,treatment, and prevention of vitamin D deficiency; an Endocrine Society clinical practice guideline. JCEM. 2010; 96(7):1911-30. PERFORMED BY: [place] [address] PATHOLOGIST LEATHER SHAVER GUILLERMINA BARROS M.D.Performed By: #### CMP, LIPID, CBC, [id number], TSH3 wRFLX, ETOH #### [place] [phone] USApH of Urine by Test stripOrdered By: Krishna Carias on 32-51-7165wJ (U)6.5 [pH]Normal5.0-9.0[facility] Medical CenterComment on above:Order Comment: Name Collection Type:: Clean-Voided MidstreamPerformed By: #### UA, URDS #### [facility] [address] [place] [address] USACBC WITH AUTO DIFFERENTIALon 64-75-3572KFDARJCDX ABSOLUTE COUNT (10*3/UL) BY AUTOMATED COUNT0.0 10*3/uLNormal0.0-0.2Pro[facility] HospitalComment on above:Performed By: #### CBCA, 78292-2, CMP, 3040-3 #### [facility] ([id number]) [address] [place] [address]AFGWVDBPW RELATIVE PERCENT BY AUTOMATED COUNT0.3 %Normal [facility] HospitalCommunising memorial hospital on above:Performed By: #### CBCA, 01881-4, CMP, 3040-3 #### [facility] ([id number]) [address] [place] [address] 37531HQRVRFDYMCM DIFFERENTIAL TYPEAUTOMATED DIFFERENTIALNormal [facility] HospitalComment on above:Performed By: #### CBCA, 86104-6, CMP, 3040-3 #### [facility] ([id number]) [address] [place] [address]Einmebpgkhq (Bld) [#/Vol]0.0 10*3/uLNormal0.0-0.4ProWhite Hospitalca [facility] General HospitalComment on above:Performed By: #### CBCA, 25004-2, CMP, 3040-3 #### [facility] ([id number]) [address] [place] [address] 55286DQHKMFCUXZD RELATIVE PERCENT BY AUTOMATED COUNT0.1 %Normal [facility] HospitalCommunising memorial hospital on above:Performed By: #### CBCA, 69349-5, CMP, 3040-3 #### [facility] ([id number]) [address] [place] [address] 19[address]Hhmeuqxwfnj distribution width (RBC) [Ratio]13.3 %Hpuypc29.5-15 [facility] HospitalComment on above:Performed By: #### CBCA, 89207-1, CMP, 3040-3 #### [facility] ([id number]) [address] [place] [address]1127Kcyxfswpge (Bld) [Volume fraction]35.9 %Hbm29-90GhwKgfnliBaylor Scott & White Medical Center – TempleComment on above:Performed By: #### CBCA, 47256-7, CMP, 3040-3 #### [facility] ([id number]) [address] [place] [address] 20776Srldxfaeoh (Bld) [Mass/Vol]12.4 g/xMUkr26-96LpsLjcajrOhioHealth Dublin Methodist HospitalComment on above:Performed By: #### CBCChirag, 06159-7, CMP, 3040-3 #### [facility] ([id number]) [address] [place] [address] 19664TVGPJOCWQPY ABSOLUTE COUNT (10*3/UL) BY AUTOMATED COUNT0.6 10*3/uLLow1.0-3.5PCleveland Clinic Avon HospitalComment on above:Performed By: #### CBCChirag, 79646-9, CMP, 3040-3 #### [facility] ([id number]) [address] [place] [address] 72796MLAODSJKEBE RELATIVE PERCENT BY AUTOMATED COUNT11.5 %Normal [facility] HospitalComment on above:Performed By: #### CBCA, 81587-9, CMP, 3040-3 #### [facility] ([id number]) [address] [place] [address] 285[address]BLY (RBC) [Entitic mass]30.7 cdTxokyn63-39OqzOtyvhbOhioHealth Dublin Methodist HospitalComment on above:Performed By: #### CBCA, 10681-4, CMP, 3040-3 #### [facility] ([id number]) [address] [place] [address] 473[address]JBRV (RBC) [Mass/Vol]34.5 g/iZGerzzj04-78IoiEkxpbiBaylor Scott & White Medical Center – TempleComment on above:Performed By: #### CBCA, 40164-6, CMP, 3040-3 #### [facility] ([id number]) [address] [place] [address] 555[address]LUX (RBC) [Entitic vol]89 mWSztojg50-185IrbQjawyf Fremont HospitalComment on above:Performed By: #### CBCA, 48470-9, CMP, 3040-3 #### [facility] ([id number]) [address] [place] [address] 829[address]JKXIMIGNB ABSOLUTE COUNT (10*3/UL) BY AUTOMATED COUNT0.3 10*3/uLNormal0.0-0.9[facility] HospitalCommunising memorial hospital on above:Performed By: #### CBCA, 06367-9, CMP, 3040-3 #### [facility] ([id number]) [address] [place] [address] 93040AADCJDYRZ RELATIVE PERCENT BY AUTOMATED COUNT5.3 %Normal [facility] HospitalCommunising memorial hospital on above:Performed By: #### CBCA, 34762-6, CMP, 3040-3 #### [facility] ([id number]) [address] [place] [address] 59[address]JOLEYVWKWUA ABSOLUTE COUNT BY AUTOMATED COUNT4.7 10*3/uLNormal 1.5-6.6[facility] HospitalComment on above:Performed By: #### CBCA, 23529-5, CMP, 3040-3 #### [facility] ([id number]) [address] [place] [address] 30549SJNVTWHPAFZ RELATIVE PERCENT BY AUTOMATED COUNT82.8 %Normal [facility] HospitalComment on above:Performed By: #### CBCA, 79176-8, CMP, 3040-3 #### [facility] ([id number]) [address] [place] [address] 94[address]Jmrutujh mean volume (Bld) [Entitic vol]8.4 fLNormal7-12 ProMContra Costa Regional Medical CenterComment on above:Performed By: #### CBCChirag, 95179-0, CMP, 3040-3 #### [facility] ([id number]) [address] [place] [address]88[address]Niravethp (Bld) [#/Vol]258 10*3/nDIozfko398-257UgeSaznom [facility]remont HospitalComment on above:Performed By: #### LILA, 94181-9, CMP, 3040-3 #### [facility] ([id number]) [address] [place] [address]60[address]RVU COUNT4.04 X10E12/LLow4.1-5.7[facility] Comment on above:Performed By: #### LILA, 70249-8, CMP, 3040-3 #### [facility] ([id number]) [address] [place] [address] 50[address]UWQ (Bld) [#/Vol]5.6 10*3/uLNormal4-11[facility] HospitalComment on above:Performed By: #### LILA, 65219-5, CMP, 3040-3 #### [facility] ([id number]) [address] [place] [address] 58453PADMKJYKLGFKU METABOLIC PANELon 02-30-5969Owgjlem [Mass/Vol]3.3 g/dLNormal3.2-5.3PCleveland Clinic Avon HospitalComment on above:Performed By: #### JOA, 80771-0, CMP, 3040-3 #### [facility] ([id number]) [address] [place] [address] 270[address]CSN [Catalytic activity/Vol]70 U/OFdjuob90-704HjzVfpwsxBaylor Scott & White Medical Center – TempleComment on above:Performed By: #### LILA, 31463-7, CMP, 3040-3 #### [facility] ([id number]) [address] [place] [address], [place] [id number] [Catalytic activity/Vol]148 U/LHigh<=40ProBaylor Scott & White Medical Center – TempleComment on above:Performed By: #### LILA, 63059-3, CMP, 3040-3 #### [facility] ([id number]) [address] [place] [address], [place] [id number] gap [Moles/Vol]9 mmol/LNormal5-15ProBaylor Scott & White Medical Center – TempleComment on above:Performed By: #### LILA, 04764-3, CMP, 3040-3 #### [facility] ([id number]) [address] [place] [address], [place] [address]FFU [Catalytic activity/Vol]69 U/LHigh<=41ProBaylor Scott & White Medical Center – TempleComment on above:Performed By: #### LILA, 66535-9, CMP, 3040-3 #### [facility] ([id number]) [address] [place] [address], [place] [id number] [Mass/Vol]0.4 mg/dLNormal0.3-1.2PCleveland Clinic Avon HospitalComment on above:Performed By: #### LILA, 50624-8, CMP, 3040-3 #### [facility] ([id number]) [address] [place] [address], [place] [id number] [Mass/Vol]8.2 mg/dLLow8.5-10.5PCleveland Clinic Avon HospitalComment on above:Performed By: #### LILA, 27025-3, CMP, 3040-3 #### [facility] ([id number]) [address] [place] [address], [place] [address]Nogiagml [Moles/Vol]105 mmol/HNsbnjz46-218YgwUxlengOhioHealth Dublin Methodist HospitalComment on above:Performed By: #### LILA, 19892-0, YAQUELIN, 3040-3 #### [facility] ([id number]) [address] [place] [address] 76[address]FJ2 [Moles/Vol]22 mmol/KLijpcy20-94DamXdfsrmCleveland Clinic Avon Hospital Comment on above:Performed By: #### LILA, 73695-2, YAQUELIN, 0-3 #### [facility] ([id number]) [address] [place] [address]Nvsvievosa [Mass/Vol]1.03 mg/dLNormal0.70-1.20[facility] HospitalComment on above:Result Comment: METHOD TRACEABLE TO IDMS STANDARD Performed By: #### LILA, 75668-4, YAQUELIN, 0-3 #### [facility] ([id number]) [address] [place] [address] 07698COIV (CKD-EPI) NON-RACE DEPENDENT>^90Normal>=60Ohio[facility] Methodist HospitalComment on above:Result Comment: eGFR not reported due to non- numeric value for Creatinine. Reported eGFR is based on the CKD-EPI 2021 equation that does not use a race coefficient.Performed By: #### LILA, 14450-4, YAQUELIN, 0-3 #### [facility] ([id number]) [address] [place] [address]Lmrmmdc [Mass/Vol]184 mg/uIRwiy22-26CkkPvaxwgOhioHealth Dublin Methodist Hospital Comment on above:Performed By: #### LILA, 30356-9, YAQUELIN, 3040-3 #### [facility] ([id number]) [address] [place] [address]23[address]Jedzvjedo [Moles/Vol]3.9 mmol/LNormal3.5-5.0ProBaylor Scott & White Medical Center – TempleComment on above:Performed By: #### LILA, 78309-9, CMP, 3040-3 #### [facility] ([id number]) [address] [place] [address]Jvlypjh [Mass/Vol]6.1 g/dLNormal6.0-8.0ProBaylor Scott & White Medical Center – TempleComment on above:Performed By: #### LILA, 18951-4, YAQUELIN, 3040-3 #### [facility] ([id number]) [address] [place] [address] 78490Irvakr [Moles/Vol]136 mmol/DLqkkqw780-689CbxZpdpds [facility]rem[facility] HospitalComment on above:Performed By: #### LILA, 84707-5, CMP, 3040-3 #### [facility] ([id number]) [address] [place] [address] 62543Jxws nitrogen [Mass/Vol]16 mg/dLNormal5-23ProBaylor Scott & White Medical Center – TempleComment on above:Performed By: #### LILA, 43617-2, CMP, 3040-3 #### [facility] ([id number]) [address] [place] [address] [id number] 84-84-0145Bplmrzdsr [Mass/Vol]2.0 mg/dLNormal 1.8-2.6ProBaylor Scott & White Medical Center – TempleComment on above:Performed By: #### LILA, 32333-4, YAQUELIN, 3040-3 #### [facility] ([id number]) [address] [place] [address] [id number] BRAIN W WO CONTon [id number] BRAIN W WO CONTMR BRAIN W WO [...] by Sundeep Estevez MD on 06/14/2025 11:37 AMNormalHarrison Community Hospital WITH AUTO DIFFERENTIALon [id number] ABSOLUTE COUNT (10*3/UL) BY AUTOMATED COUNT0.0 10*3/uLNormal0.0-0.2PC[facility] Comment on above:Performed By: #### LILA, 76024-6, CMP, 3040-3 #### [facility] ([id number]) [address] [place] [address] 12061XLKMVPPWD RELATIVE PERCENT BY AUTOMATED COUNT0.4 %Normal [facility] HospitalComment on above:Performed By: #### LILA, 71556-1, CMP, 3040-3 #### [facility] ([id number]) [address] [place] [address] 47480LBCXFGFYXFT DIFFERENTIAL TYPEAUTOMATED DIFFERENTIALNormal Ohio[facility] Dublin Methodist HospitalComment on above:Performed By: #### LILA, 81700-7, CMP, 3040-3 #### [facility] ([id number]) [address] [place] [address] 46259Cokbyntyhca (Bld) [#/Vol]0.1 10*3/uLNormal0.0-0.4Ohio[facility] Dublin Methodist HospitalComment on above:Performed By: #### LILA, 43736-2, CMP, 3040-3 #### [facility] ([id number]) [address] [place] [address] 98481FWFGXRTVSQO RELATIVE PERCENT BY AUTOMATED COUNT1.3 %Normal [facility] on above:Performed By: #### CBCA, 42017-2, CMP, 3040-3 #### [facility] ([id number]) [address] [place] [address] 67079Yszeveqetcw distribution width (RBC) [Ratio]13.3 %Xurdwi69.5-15 [facility] HospitalComment on above:Performed By: #### CBCChirag, 23684-5, CMP, 3040-3 #### [facility] ([id number]) [address] [place] [address] 16293Mwofeblahy (Bld) [Volume fraction]38.3 %Xmz38-52SzzNdvpmaOhioHealth Dublin Methodist HospitalComment on above:Performed By: #### CBCA, 05247-3, CMP, 3040-3 #### [facility] ([id number]) [address] [place] [address] 67013Zmfcqjpzux (Bld) [Mass/Vol]13.1 g/nBTiiolx74-40RbgPeqfxjOhioHealth Dublin Methodist HospitalCommunising memorial hospital on above:Performed By: #### CBCChirag, 07418-4, CMP, 3040-3 #### [facility] ([id number]) [address] [place] [address] 31217YUDKIPOBSCE ABSOLUTE COUNT (10*3/UL) BY AUTOMATED COUNT1.7 10*3/uLNormal1.0-3.5PBrecksville [facility] on above:Performed By: #### CBCA, 72701-3, CMP, 3040-3 #### [facility] ([id number]) [address] [place] [address] 42832JFVGPKJPXQB RELATIVE PERCENT BY AUTOMATED COUNT36.6 %Normal [facility] HospitalComment on above:Performed By: #### CBCA, 98842-0, CMP, 3040-3 #### [facility] ([id number]) [address] [place] [address] 87368EDS (RBC) [Entitic mass]30.1 pzEthpup82-05OcbUbmxgyBaylor Scott & White Medical Center – TempleComment on above:Performed By: #### CBCA, 86803-6, CMP, 3040-3 #### [facility] ([id number]) [address] [place] [address] 14007CEWS (RBC) [Mass/Vol]34.3 g/aIMjarzb51-04WqiCuytmmBaylor Scott & White Medical Center – TempleComment on above:Performed By: #### CBCA, 17318-2, CMP, 3040-3 #### [facility] ([id number]) [address] [place] [address] 28196HCB (RBC) [Entitic vol]88 hGPiwoax45-372KldNahylb [facility]ont HospitalComment on above:Performed By: #### CBCChirag, 24817-8, CMP, 3040-3 #### [facility] ([id number]) [address] [place] [address] 00091MMRMHQUBH ABSOLUTE COUNT (10*3/UL) BY AUTOMATED COUNT0.5 10*3/uLNormal0.0-0.9[facility] HospitalCommunising memorial hospital on above:Performed By: #### CBCA, 58162-2, CMP, 3040-3 #### [facility] ([id number]) [address] [place] [address] 92458CQJQPHKYL RELATIVE PERCENT BY AUTOMATED COUNT10.8 %Normal [facility] HospitalCommunising memorial hospital on above:Performed By: #### CBCA, 07594-5, CMP, 3040-3 #### [facility] ([id number]) [address] [place] [address] 64661WKFLSHNWSJB ABSOLUTE COUNT BY AUTOMATED COUNT2.4 10*3/uLNormal 1.5-6.6Ohio[facility] HospitalComment on above:Performed By: #### CBCChirag, 60911-4, CMP, 3040-3 #### [facility] ([id number]) [address] [place] [address] 25709RNOCUMYZVXV RELATIVE PERCENT BY AUTOMATED COUNT50.9 %Normal [facility] HospitalComment on above:Performed By: #### CBCChirag, 06670-3, CMP, 3040-3 #### [facility] ([id number]) [address] [place] [address] 77366Eskaijmv mean volume (Bld) [Entitic vol]7.7 fLNormal7-12 [facility] HospitalComment on above:Performed By: #### LILA, 71324-4, CMP, 3040-3 #### [facility] ([id number]) [address] [place] [address] 13018Bhlztsngf (Bld) [#/Vol]267 10*3/cXOuackw777-326ThrChqvrp [facility] HospitalComment on above:Performed By: #### CBCChirag, 54755-9, CMP, 3040-3 #### [facility] ([id number]) [address] [place] [address] 52712EOE COUNT4.36 X10E12/LNormal4.1-5.7[facility] Comment on above:Performed By: #### CBCChirag, 98736-7, CMP, 3040-3 #### [facility] ([id number]) [address] [place] [address] 30235BRV (Bld) [#/Vol]4.7 10*3/uLNormal4-11ProBaylor Scott & White Medical Center – TempleComment on above:Performed By: #### CBCChirag, 18653-1, CMP, 3040-3 #### [facility] ([id number]) [address] [place] [address] [place] [address]1671PNWCXUESUSBVJ METABOLIC PANELon 98-26-5426Temuzpq [Mass/Vol]3.5 g/dLNormal3.2-5.3PCleveland Clinic Avon HospitalComment on above:Performed By: #### LILA, 03450-1, CMP, 3040-3 #### [facility] ([id number]) [address] [place] [address], [place] [address]GWO [Catalytic activity/Vol]50 U/VPsdwul87-146KzeBhpmcmBaylor Scott & White Medical Center – TempleComment on above:Performed By: #### LILA, 31909-1, CMP, 3040-3 #### [facility] ([id number]) [address] [place] [address], [place] 26414OFK [Catalytic activity/Vol]169 U/LHigh<=40ProBaylor Scott & White Medical Center – TempleComment on above:Performed By: #### LILA, 84420-6, CMP, 3040-3 #### [facility] ([id number]) [address] [place] [address], [place] [id number] gap [Moles/Vol]9 mmol/LNormal5-15[facility] HospitalComment on above:Performed By: #### LILA, 44755-4, CMP, 3040-3 #### [facility] ([id number]) [address] [place] [address], [place] [address]98[address]DDZ [Catalytic activity/Vol]91 U/LHigh<=41ProBaylor Scott & White Medical Center – TempleComment on above:Performed By: #### LILA, 72536-2, CMP, 3040-3 #### [facility] ([id number]) [address] [place] [address], [place] [id number] [Mass/Vol]1.2 mg/dLNormal0.3-1.2PFamily Health West Hospital HospitalComment on above:Performed By: #### LILA, 05861-6, CMP, 3040-3 #### [facility] ([id number]) [address] [place] [address], [place] [id number] [Mass/Vol]8.1 mg/dLLow8.5-10.5PCleveland Clinic Avon HospitalComment on above:Performed By: #### LILA, 91682-7, CMP, 3040-3 #### [facility] ([id number]) [address] [place] [address], [place] [id number] [Moles/Vol]99 mmol/BKdrcqq77-139IwbGpdpmuBaylor Scott & White Medical Center – TempleComment on above:Performed By: #### LILA, 60583-8, CMP, 3040-3 #### [facility] ([id number]) [address] [place] [address] 20805FD6 [Moles/Vol]26 mmol/BVpzfow00-04VrjAroqmwCleveland Clinic Avon Hospital Comment on above:Performed By: #### LILA, 09293-8, CMP, 3040-3 #### [facility] ([id number]) [address] [place] [address] 60539Ccvwrjzjrc [Mass/Vol]1.22 mg/dLHigh0.70-1.20[facility] HospitalComment on above:Result Comment: METHOD TRACEABLE TO IDMS STANDARD Performed By: #### LILA, 91763-9, YAQUELIN, 3040-3 #### [facility] ([id number]) [address] [place] [address] 52337MWG/1.73 sq M.predicted among non-blacks MDRD (S/P/Bld) [Vol rate/Area]76 mL/min/{1.73_m2}Normal>=60ProBaylor Scott & White Medical Center – TempleComment on above:Result Comment: eGFR not reported due to non-numeric value for Creatinine. Reported eGFR is based on the CKD-EPI 2020 equation that does not use a race coefficient.Performed By: #### LILA, 99984-3, YAQUELIN, 3040-3 #### [facility] ([id number]) [address] [place] [address], [place] [address]Punhxyj [Mass/Vol]151 mg/zGOzgv62-47MuvNpeykaOhioHealth Dublin Methodist Hospital Comment on above:Performed By: #### LILA, 19317-9, CMP, 3040-3 #### [facility] ([id number]) [address] [place] [address], [place] 215[address]Qkhtrusqz [Moles/Vol]3.8 mmol/LNormal3.5-5.0ProBaylor Scott & White Medical Center – TempleComment on above:Performed By: #### LILA, 58743-9, CMP, 3040-3 #### [facility] ([id number]) [address] [place] [address], [place] 005[address]Fwyjkln [Mass/Vol]6.3 g/dLNormal6.0-8.0ProBaylor Scott & White Medical Center – TempleComment on above:Performed By: #### LILA, 06508-9, CMP, 3040-3 #### [facility] ([id number]) [address] [place] [address], [place] [address]32[address]Ifxmxo [Moles/Vol]134 mmol/SLbemwk814-287RuiKbeihf [facility]remont HospitalComment on above:Performed By: #### LILA, 38312-6, CMP, 3040-3 #### [facility] ([id number]) [address] [place] [address], [place] [address]Hetw nitrogen [Mass/Vol]13 mg/dLNormal5-23ProBaylor Scott & White Medical Center – TempleComment on above:Performed By: #### LILA, 16136-9, CMP, 3040-3 #### [facility] ([id number]) [address] [place] [address], [place] 511[address]Ftiwekr [Mass/Vol]3.8 g/dLNormal3.2-5.3ProMedKaiser Foundation HospitalComment on above:Performed By: #### LILA, 64107-1, CMP, 3040-3 #### [facility] ([id number]) [address] [place] [address], [place] 700[address]GPK [Catalytic activity/Vol]53 U/UMgadsg57-103EezNwvwfcBaylor Scott & White Medical Center – TempleComment on above:Performed By: #### LILA, 19665-9, CMP, 3040-3 #### [facility] ([id number]) [address] [place] [address], [place] 444[address]UNJ [Catalytic activity/Vol]183 U/LHigh<=40ProBaylor Scott & White Medical Center – TempleComment on above:Performed By: #### LILA, 35770-4, CMP, 3040-3 #### [facility] ([id number]) [address] [place] [address], [place] 98[address]Vjvsf gap [Moles/Vol]11 mmol/LNormal5-15ProBaylor Scott & White Medical Center – TempleComment on above:Performed By: #### LILA, 05763-1, CMP, 3040-3 #### [facility] ([id number]) [address] [place] [address], [place] [address]VXC [Catalytic activity/Vol]100 U/LHigh<=41ProBaylor Scott & White Medical Center – TempleComment on above:Performed By: #### LILA, 03701-6, CMP, 3040-3 #### [facility] ([id number]) [address] [place] [address], [place] 234[address]Lsmhatykq [Mass/Vol]1.3 mg/dLHigh0.3-1.2PCleveland Clinic Avon HospitalComment on above:Performed By: #### LILA, 43261-1, CMP, 3040-3 #### [facility] ([id number]) [address] [place] [address], [place] [address]08[address]Zcyynya [Mass/Vol]8.4 mg/dLLow8.5-10.5ProMedThe Rehabilitation Institute of St. Louis HospitalComment on above:Performed By: #### LILA, 18052-2, CMP, 3040-3 #### [facility] ([id number]) [address] [place] [address], [place] [id number] [Moles/Vol]95 mmol/PMle30-442UrtElxbplOhioHealth Dublin Methodist HospitalComment on above:Performed By: #### LILA, 67144-9, CMP, 3040-3 #### [facility] ([id number]) [address] [place] [address] 51507SS0 [Moles/Vol]25 mmol/FHelklt93-73MraQepxqrCleveland Clinic Avon Hospital Comment on above:Performed By: #### LILA, 90934-8, CMP, 3040-3 #### [facility] ([id number]) [address] [place] [address] 92909Updthimhvm [Mass/Vol]1.42 mg/dLHigh0.70-1.20[facility] HospitalComment on above:Result Comment: METHOD TRACEABLE TO IDMS STANDARD Performed By: #### LILA, 63728-3, YAQUELIN, 3040-3 #### [facility] ([id number]) [address] [place] [address] 26488KVB/1.73 sq M.predicted among non-blacks MDRD (S/P/Bld) [Vol rate/Area]64 mL/min/{1.73_m2}Normal>=60ProBaylor Scott & White Medical Center – TempleComment on above:Result Comment: eGFR not reported due to non-numeric value for Creatinine. Reported eGFR is based on the CKD-EPI 2021 equation that does not use a race coefficient.Performed By: #### LILA, 04417-7, CMP, 3040-3 #### [facility] ([id number]) [address] [place] [address] 13473Lbwaviz [Mass/Vol]126 mg/cNIatz35-64CqlOebxkvOhioHealth Dublin Methodist Hospital Comment on above:Performed By: #### LILA, 60466-9, CMP, 3040-3 #### [facility] ([id number]) [address] [place] [address] 34182Lwtkjhrcw [Moles/Vol]3.5 mmol/LNormal3.5-5.0ProBaylor Scott & White Medical Center – TempleComment on above:Performed By: #### LILA, 06024-0, CMP, 3040-3 #### [facility] ([id number]) [address] [place] [address] 04660Szedezi [Mass/Vol]6.7 g/dLNormal6.0-8.0ProBaylor Scott & White Medical Center – TempleComment on above:Performed By: #### LILA, 32690-1, CMP, 3040-3 #### [facility] ([id number]) [address] [place] [address] 25241Mwvils [Moles/Vol]131 mmol/ECmw419-798FzuCsnzbpBaylor Scott & White Medical Center – TempleComment on above:Performed By: #### LILA, 41976-5, CMP, 3040-3 #### [facility] ([id number]) [address] [place] [address] 90856Tcwy nitrogen [Mass/Vol]14 mg/dLNormal5-23ProBaylor Scott & White Medical Center – TempleComment on above:Performed By: #### LILA, 00636-8, CMP, 3040-3 #### [facility] ([id number]) [address] [place] [address] 70060TX BRAIN WO CONTon 17-61-4942AB BRAIN WO CONTCT BRAIN WO CONT Examination: [...] by Thierno Fam MD on 06/13/2025 12:17 PMNFairfield Medical CenterCT CERVICAL SPINE WO CONTon 45-31-1288UC CERVICAL SPINE WO CONTCT CERVICAL SPINE WO [...] by Louie Mahajan MD on 06/13/2025 12:22 [facility] HospitalMAGNESIUMon 16-15-9527Hkkkqhcgp [Mass/Vol]2.1 mg/dLNormal1.8-2.6 [facility] HospitalComment on above:Performed By: #### CBCA, 73062-9, CMP, 3040-3 #### [facility] ([id number]) [address] [place] [address], FIRST FLOOR [place], [place] [address]CQZLPQGCO/GC BY PCR SÁNCHEZ SWABon 97-83-0157JNRVZTEQL/GC BY PCR SÁNCHEZ SWABCHLAMYDIA DNA(PCR) Negative Chlamydia trachomatis not detected by nucleic acid amplification. This does not exclude the possibility of infection because results are dependent on adequate specimen collection. GONORRHOEAE DNA(PCR) Negative Neisseria gonorrhoeae not detected by nucleic acid amplification. This does not exclude the possibility of infection because results are dependent on adequate specimen collection.NormalOhioHealth Dublin Methodist HospitalComment on above:Performed By: #### CBCA, 04082-0, CMP, 3040-3 #### [facility] ([id number]) [address] [place] [address] 65434WJIRFFTGQ B CORE ANTIBODY, TOTALon 66-36-8488ECAY HBC Bjn-UhzjczelDgorkcDjc-QmmqdtfuKxjUegmeg [facility] HospitalComment on above: Performed By: #### AHBC #### [facility] ([facility]) [address] [place] [address] VIRHEPATITIS B SURFACE ANTIBODY QUANTITATIONon 22-30-2014QQXO HBS QUANT.<^3.0NoalOhioHealth Dublin Methodist HospitalComment on above:Order Comment: Vaccinated: >=10 mIU/mL, Positive (Immune) Unvaccinated: <10 mIU/mL, Negative (Not Immune)Performed By: #### AHBSQ #### [facility] ([facility]) [address] [place] [address] VIRHEPATITIS B SURFACE ANTIGENon 51-85-9475PPCUIOKQI B SURF AG Tty-ItuyixjjNcdcssKuh-ZcjjtqhnXqsMfmcdy [facility] HospitalComment on above: Performed By: #### HBAG #### [facility] ([facility]) [address] [place] [address] VIRHEPATITIS C VIRUS QUANTITATIVE BY NAATon 07-72-1799IAT INTERPRETATIONDetectedAbnormalNot DetectedProBaylor Scott & White Medical Center – TempleComment on above:Performed By: #### CBCA, 59519-4, CMP, 3040-3 #### [facility] ([id number]) [address] [place] [address] 76314CTZ LOG VALUE7.03 Log IU/mLHigh0 copies Log IU/mLOhioHealth Dublin Methodist HospitalComment on above:Performed By: #### CBCA, 75636-6, CMP, 3040-3 #### [facility] ([id number]) [address] [place] [address] 63292CSI VIRAL HPFL90514181.00 IU/mLHigh0 copies IU/mLOhioHealth Dublin Methodist HospitalComment on above:Performed By: #### LILA, 58389-0, YAQUELIN, 3040-3 #### [facility] ([id number]) [address] [place] [address] 99863UPHATZQZB C(HCV) ANTIBODY W/REFLEX TO PCRon 12-15-3571ZTNG HCV W/PCR REFLXReactiveAbnormalNon-ReactiveOhioHealth Dublin Methodist HospitalComment on above:Result Comment: Supplemental testing for HCV RNA by PCR has been ordered per CDC recommendations. Cgkbet-gl-apilhw ratio is >=1.00.Performed By: #### LILA, 47996-2, YAQUELIN, 3040-3 #### [facility] ([id number]) [address] [place] [address] 22501QDA 1 AND 2 AB/AG SCREEN (P24 AG)on 41-75-9864IUL 1 AND 2 AB/AG JCOFPTOgl-MwvjooqpYmsxweOaj-MlwiznucAdrYerdrg [facility] HospitalComment on above: Order Comment: This [...] or diagnoses. Performed By: #### HIV4 #### [facility] ([facility]) [address] [place] [address] VIRAMMONIAon 36-02-2713Ndqarlg (P) [Moles/Vol]44 umol/LHigh 11-35ProBaylor Scott & White Medical Center – TempleComment on above:Performed By: #### LILA, 52649- 6, YAQUELIN, 3040-3 #### [facility] ([id number]) [address] [place] [address] 98479YCU AND AUTO DIFFon 54-59-4878FEMLKCRY BASOPHIL0.0 X10E9/L Normal0.0-0.2PCleveland Clinic Avon HospitalComment on above:Performed By: #### CBCChirag, 03277-3, CMP, 3040-3 #### [facility] ([id number]) [address] [place] [address] 08983FNXAUBBQ NEUTROPHIL2.1 X10E9/LNormal1.5-6.6ProBaylor Scott & White Medical Center – TempleComment on above:Performed By: #### CBCChirag, 12921-8, CMP, 3040-3 #### [facility] ([id number]) [address] [place] [address] 26189Ijltydeol/100 WBC (Bld)1.0 %NormalOhioHealth Dublin Methodist Hospital Comment on above:Performed By: #### CBCChirag, 30982-4, CMP, 3040-3 #### [facility] ([id number]) [address] [place] [address] 53322Umntcayyedp (Bld) [#/Vol]0.2 10*3/uLNormal0.0-0.4Ohio[facility] Methodist HospitalComment on above:Performed By: #### CBCChirag, 98089-4, CMP, 3040-3 #### [facility] ([id number]) [address] [place] [address] 88225Mylbvkgtvfc/100 WBC (Bld)3.6 %NormalOhioHealth Dublin Methodist Hospital Comment on above:Performed By: #### CBCChirag, 84467-6, CMP, 3040-3 #### [facility] ([id number]) [address] [place] [address] 59999Obfxmqaqrqk distribution width (RBC) [Ratio]14.2 %Normal 11.5-15.0ProBaylor Scott & White Medical Center – TempleComment on above:Performed By: #### CBCA, 81280-0, CMP, 3040-3 #### [facility] ([id number]) [address] [place] [address] 43154Gbslkykxdd (Bld) [Volume fraction]34.2 %Ufm94-92CscAnujdnBaylor Scott & White Medical Center – TempleComment on above:Performed By: #### CBCA, 39712-5, CMP, 3040-3 #### [facility] ([id number]) [address] [place] [address] 99527Eidxpcimyd (Bld) [Mass/Vol]12.2 g/dLLow13.0-17.0Ohio[facility] Methodist HospitalComment on above:Performed By: #### CBCChirag, 21955-7, CMP, 3040-3 #### [facility] ([id number]) [address] [place] [address] 29004Jiwllikgbug (Bld) [#/Vol]1.8 10*3/uLNormal1.0-3.5ProMedKaiser Foundation HospitalComment on above:Performed By: #### CBCChirag, 34653-4, CMP, 3040-3 #### [facility] ([id number]) [address] [place] [address] 52967Znywvetatdo/100 WBC (Bld)39.1 %NormalOhioHealth Dublin Methodist Hospital Comment on above:Performed By: #### CBCA, 68654-5, CMP, 3040-3 #### [facility] ([id number]) [address] [place] [address] 74668MMS (RBC) [Entitic mass]31.9 rqOnppec69-58VivJwvrgoOhioHealth Dublin Methodist HospitalComment on above:Performed By: #### CBCA, 05956-2, CMP, 3040-3 #### [facility] ([id number]) [address] [place] [address] 07422LEFL (RBC) [Mass/Vol]35.6 g/gVDkieau37-23PfgVjpdnbBaylor Scott & White Medical Center – TempleComment on above:Performed By: #### LILA, 44709-3, CMP, 3040-3 #### [facility] ([id number]) [address] [place] [address] 50037TLG (RBC) [Entitic vol]90 eKNjnztw45-055VrsJrapijOhioHealth Dublin Methodist HospitalCommunising memorial hospital on above:Performed By: #### LILA, 58424-6, CMP, 3040-3 #### [facility] ([id number]) [address] [place] [address] 32856Btjvkkcee (Bld) [#/Vol]0.5 10*3/uLNormal0-0.9[facility] on above:Performed By: #### LILA, 72992-3, CMP, 3040-3 #### [facility] ([id number]) [address] [place] [address] 20686Nqiylyfon/100 WBC (Bld)10.4 %[facility] Comment on above:Performed By: #### LILA, 91036-1, CMP, 3040-3 #### [facility] ([id number]) [address] [place] [address] 17413Stsfmqjnzst/100 WBC (Bld)45.9 %[facility] Comment on above:Performed By: #### LILA, 38520-3, CMP, 3040-3 #### [facility] ([id number]) [address] [place] [address] 61197Aijlbhiz mean volume (Bld) [Entitic vol]7.5 fLNormal7-12 ProMedicHenry Mayo Newhall Memorial HospitalCommunising memorial hospital on above:Performed By: #### CBCChirag, 30763-7, CMP, 3040-3 #### [facility] ([id number]) [address] [place] [address] 09047Ecnbhgcyv (Bld) [#/Vol]271 10*3/uYDdwjiy037-508DhlVmtdgl [facility] HospitalComment on above:Performed By: #### CBCChirag, 41386-2, CMP, 3040-3 #### [facility] ([id number]) [address] [place] [address] 07639IQC COUNT3.81 X10E12/LLow4.10-5.70ProB[facility] Comment on above:Performed By: #### LILA, 45408-4, CMP, 3040-3 #### [facility] ([id number]) [address] [place] [address] 22876VTC (Bld) [#/Vol]4.6 10*3/uLNormal4.0-11.0ProBaylor Scott & White Medical Center – TempleComment on above:Performed By: #### LILA, 18657-2, CMP, 3040-3 #### [facility] ([id number]) [address] [place] [address] 71416YEZUKMGXFWIRP METABOLIC PANELon 37-50-8507Dcravxa [Mass/Vol]3.5 g/dLNormal3.2-5.3PCleveland Clinic Avon HospitalComment on above:Performed By: #### LILA, 05421-9, CMP, 3040-3 #### [facility] ([id number]) [address] [place] [address] 81359WNH [Catalytic activity/Vol]61 U/BYgchxb56-975AedXgtyaeBaylor Scott & White Medical Center – TempleComment on above:Performed By: #### CBCA, 53570-1, CMP, 3040-3 #### [facility] ([id number]) [address] [place] [address] 97400DOV [Catalytic activity/Vol]141 U/LHigh0-40ProBaylor Scott & White Medical Center – TempleComment on above:Performed By: #### CBCChirag, 73469-5, CMP, 3040-3 #### [facility] ([id number]) [address] [place] [address], [place] [address]Yebwf gap [Moles/Vol]6 mmol/LNormal5-15[facility] HospitalComment on above:Performed By: #### LILA, 05374-0, CMP, 3040-3 #### [facility] ([id number]) [address] [place] [address], [place] [address]DQT [Catalytic activity/Vol]96 U/LHigh0-41ProBaylor Scott & White Medical Center – TempleComment on above:Performed By: #### LILA, 34396-9, CMP, 3040-3 #### [facility] ([id number]) [address] [place] [address], [place] [address]Iddvxzmqw [Mass/Vol]0.8 mg/dLNormal0.3-1.2PCleveland Clinic Avon HospitalComment on above:Performed By: #### LILA, 95098-0, CMP, 3040-3 #### [facility] ([id number]) [address] [place] [address], [place] [address]Ggwtbcw [Mass/Vol]8.1 mg/dLLow8.5-10.5PCleveland Clinic Avon HospitalComment on above:Performed By: #### LILA, 38871-2, CMP, 3040-3 #### [facility] ([id number]) [address] [place] [address], [place] [address]Dqlqfusk [Moles/Vol]108 mmol/RMsuefo89-318DwuThpobiBaylor Scott & White Medical Center – TempleComment on above:Performed By: #### LILA, 56476-7, CMP, 3040-3 #### [facility] ([id number]) [address] [place] [address], [place] [address]TW8 [Moles/Vol]23 mmol/CIyemqd30-59YcyKefgzgCleveland Clinic Avon Hospital Comment on above:Performed By: #### ILLA, 23413-8, CMP, 3040-3 #### [facility] ([id number]) [address] [place] [address] 24193Pzcvqkefbu [Mass/Vol]1.17 mg/dLNormal0.70-1.20ProBaylor Scott & White Medical Center – TempleComment on above:Result Comment: METHOD TRACEABLE TO IDMS STANDARD Performed By: #### LILA, 81458-4, YAQUELIN, 3040-3 #### [facility] ([id number]) [address] [place] [address] 55681GIV/1.73 sq M.predicted among non-blacks MDRD (S/P/Bld) [Vol rate/Area]81 mL/min/{1.73_m2}Normal>59ProBaylor Scott & White Medical Center – TempleComment on above:Result Comment: Reported eGFR is based on the CKD-EPI 2020 equation that does not use a race coefficient.Performed By: #### LILA, 83759-8, YAQUELIN, 3040-3 #### [facility] ([id number]) [address] [place] [address] 42461Lwgqruo [Mass/Vol]105 mg/iWBrtm10-98SfoSocsedOhioHealth Dublin Methodist Hospital Comment on above:Performed By: #### LILA, 15478-7, YAQUELIN, 3040-3 #### [facility] ([id number]) [address] [place] [address] 40330Jfxtobhvg [Moles/Vol]3.5 mmol/LNormal3.5-5.0ProBaylor Scott & White Medical Center – TempleComment on above:Performed By: #### LILA, 65344-7, YAQUELIN, 3040-3 #### [facility] ([id number]) [address] [place] [address] 63339Lfazngi [Mass/Vol]6.2 g/dLNormal6.0-8.0ProBaylor Scott & White Medical Center – TempleComment on above:Performed By: #### LILA, 01270-6, YAQUELIN, 3040-3 #### [facility] ([id number]) [address] [place] [address] 68697Vjyuye [Moles/Vol]137 mmol/LRqsepv121-429BugDheedk Fremont HospitalComment on above:Performed By: #### LILA, 46453-1, [facility], 3040-3 #### [facility] ([id number]) [address] [place] [address] 20738Gewo nitrogen [Mass/Vol]20 mg/dLNormal5-23ProBaylor Scott & White Medical Center – TempleComment on above:Performed By: #### LILA, 01641-8, [facility], 3040-3 #### [facility] ([id number]) [address] [place] [address] 84144KBTPVRmv 27-30-2160Kllsex [Catalytic activity/Vol]29 U/LNormal 17-40ProBaylor Scott & White Medical Center – TempleComment on above:Performed By: #### LILA, 98674- 6, [facility], 3040-3 #### [facility] ([id number]) [address] [place] [address] 45768ZUYF/FLU A+B/RSV by NAAT/Molecularon 24-12-4886GTMU/FLU A+B/RSV by NAAT/MolecularFLU A PCR Negative (qualifier [...] operators who are performing tests using either [employer] DX or FoxyP2 systems and is limited to laboratories that [...] specimen repeat. Fact Sheet for Healthcare Providers: https://www.fda.gov/media/528247/download Fact Sheet for Patients: https://www.fda.gov/media/352118/downloadNormalProMedica San Joaquin General HospitalComment on above:Performed By: #### COVFLR #### [facility] ([id number]) [address] [place], [place] [address]Alanine aminotransferase [Enzymatic activity/volume] in Serum or PlasmaOrdered By: Selin Rowe on 99-21-9891HMR [Catalytic activity/Vol]147 U/LHigh7-52[facility] CenterAlbumin [Mass/volume] in Serum or Plasma by Bromocresol green (BCG) dye binding methoOrdered By: Selin Rowe 62-75-1639Geecymp BCG dye [Mass/Vol]3.7 g/dL3.5-5.7FSt. John of God HospitalAlkaline phosphatase [Enzymatic activity/volume] in Serum or PlasmaOrdered By: Selin Rowe on 14-70-6304DXF [Catalytic activity/Vol]56 U/L67-316JlsflynsaCommunity Regional Medical CenterAspartate aminotransferase [Enzymatic activity/volume] in Serum or PlasmaOrdered By: Selin Rowe 23-45-3532KOF [Catalytic activity/Vol] 74 U/YDpcq50-31HazstziurCommunity Regional Medical CenterBilirubin.direct [Mass/volume] in Serum or PlasmaOrdered By: Selin Rowe on 83-14-2240Hcyvlreuj.direct [Mass/Vol]0.20 mg/dLHigh0.03-0.18FSt. John of God Hospital Bilirubin.total [Mass/volume] in Serum or PlasmaOrdered By: Selin Rowe 27-21-7040Rlxymvmso [Mass/Vol]0.7 mg/dL0.3-1.0[facility] Calcium [Mass/volume] in Serum or PlasmaOrdered By: Selin Rowe on 06-07-2024 Calcium [Mass/Vol]8.7 mg/dL8.6-10.3FSt. John of God HospitalCarbon dioxide, total [Moles/volume] in Serum or PlasmaOrdered By: Selin Rowe on 64-61-5799BI3 [Moles/Vol]34.4 mmol/LHigh21.0-31.0[facility] CenterChloride [Moles/volume] in Serum or PlasmaOrdered By: Selin Rowe 77-04-9531Aofeczei [Moles/Vol]95 mmol/GSnj29-822GjvwiqwlfCommunity Regional Medical CenterCreatinine [Mass/volume] in Serum or PlasmaOrdered By: Selin Rowe 88-77-3342Fmwyagiyrs [Mass/Vol]0.85 mg/dL0.70-1.30[facility] Medical CenterGlobulin Calc (S) [Mass/Vol]Ordered By: Selin Rowe on 82-70-2454Wcxrneyg (S) [Mass/Vol]2.6 g/dLCommunity Regional Medical CenterGlucose [Mass/volume] in Serum or PlasmaOrdered By: Selin Rowe 36-94-0361Mdyloau [Mass/Vol]93 mg/dL 70-100Community [facility] Medical CenterComment on above:ADA recommended reference rangeRandom Glucose Reference Range is dependent on time and content of last meal. Glucose of more than 200 mg/dL in a nonstressed, ambulatory subject supports the diagnosisof Diabetes Mellitus.No Panel InformationOrdered By: Selin Rowe on 27-02-9115Mvzrnnydv GFR (CKD-EPI)> 60.0 mL/MinCommunity Regional Medical CenterPharmacy Creatinine Clearance (Chem90.69[facility] CenterPotassium [Moles/volume] in Serum or PlasmaOrdered By: Selin Rowe on 46-75-1391Myjoqiwvl [Moles/Vol]4.0 mmol/L3.5-5.1FSt. John of God HospitalProtein [Mass/volume] in Serum or PlasmaOrdered By: Selin Rowe on 73-48-2106Lnajctg [Mass/Vol]6.3 g/dLLow6.4-8.9Wilson Healtherum or plasma albumin/globulin mass ratioOrdered By: Selin Rowe on 83-88-9843Tycohxv/Globulin [Mass ratio]1.4 {ratio}Wilson Healtherum or plasma anion gap determinationOrdered By: Selin Rowe on 46-31-1355Asexp gap [Moles/Vol]10.6 mmol/L6.0-15.0Wilson Healtherum or plasma non-glucuronidated bilirubin measurement (mass/volume) Ordered By: Selin Rowe on 20-31-0938Azfixbvdu.indirect [Mass/Vol]0.5 mg/dL Wilson Healthodium [Moles/volume] in Serum or PlasmaOrdered By: Selin Rowe on 83-03-2278Uvzhmx [Moles/Vol]136 mmol/G579-398GsnpvzltiCommunity Regional Medical CenterUrea nitrogen [Mass/volume] in Serum or PlasmaOrdered By: Selin Rowe on 52-10-1719Rexb nitrogen [Mass/Vol]16 mg/dL7-25[facility] Medical CenterAmmonia [Moles/volume] in PlasmaOrdered By: Naren Hinson on 20-81-7364Vappqaw (P) [Moles/Vol]33 umol/V62-96CobidipqfCommunity Regional Medical CenterBacteria [Presence] in Urine by AutomatedOrdered By: Selin Rowe on 24-71-9601Hhxlqlmv Auto Ql (U)None seen [HPF]None SeenCommunity Regional Medical CenterBilirubin Test strip Ql (U)Ordered By: Selin Rowe on 58-92-3543Vsnkpipcc Ql (U)NegativeNegativeCommunity Regional Medical CenterColor Auto (U)Ordered By: Selin Rowe on 20-52-6858Ttxcf (U)YellowYellowCommunity Regional Medical CenterEpithelial cells.squamous [#/area] in Urine sediment by Automated count Ordered By: Selin Rowe on 30-49-4554Ftiaftfznx cells.squamous Auto (Urine sed) [#/Area]N/AFSt. John of God HospitalErythrocytes [#/area] in Urine sediment by Automated countOrdered By: Selin Rowe on 45-47-4240PZF Auto (Urine sed) [#/Area]3-4 [HPF]0-4FSt. John of God HospitalGlucose [Mass/volume] in Urine by Test stripOrdered By: Selin Rowe on 07-30-7289Luphojk Test strip (U) [Mass/Vol]200 mg/dLHighNormLima City HospitalHemoglobin Test strip Ql (U)Ordered By: Seiln Rowe on 34-33-1601Evbuyoruuc Ql (U)Negative NegativeCommunity Regional Medical CenterHyaline casts [#/area] in Urine sediment by Automated countOrdered By: Selin Rowe on 12-29-2716Ljacymt casts Auto (Urine sed) [#/Area]None [LPF]0-8[facility] CenterKetones Test strip Ql (U)Ordered By: Selin Rowe on 80-94-1204Dywevug Ql (U)1+High NegativeCommunity Regional Medical CenterLaboratory - Chemistry and Chemistry - challengeOrdered By: Maryam Díaz on 57-59-2513OI0 [Moles/Vol]31.9 mmol/LHigh 23.0-27.0[facility] Medical CenterHCO3 (Bld) [Moles/Vol]30.6 mmol/LHigh 23.0-29.0[facility] CenterLeukocyte esterase [Presence] in Urine by Test stripOrdered By: Selin Rowe on 09-58-4916Znqeqaajw esterase Test strip Ql (U)NegativeNegativeCommunity Regional Medical CenterLeukocytes [#/area] in Urine sediment by Automated countOrdered By: Selin Rowe on 01-85-8845CGS Auto (Urine sed) [#/Area]5-9 [HPF]High0-4FSt. John of God HospitalMucus [Presence] in Urine by AutomatedOrdered By: Selin Rowe on 34-30-0417Lrutb Auto Ql (U)Rare [LPF][facility] CenterNitrite Test strip Ql (U) Ordered By: Selin Rowe on 49-18-2147Fredynh Ql (U)NegativeNegPomerene HospitalNo Panel InformationOrdered By: Maryam Díaz on 58-59-2969Xalwdfhe Blood Base Excess6.1 mmol/LHigh-3.0-3.0[facility] Medical CenterArterial Blood Oxygen Content8.7 mmol/L6.6-9.7FSt. John of God HospitalArterial Blood Oxygen Mdkdrcgttd75.2 %95.0-100.0[facility] Medical CenterArterial Blood Partial Pressure CO243.7 mm[Hg]35.0-45.0[facility] Medical CenterArterial Blood Partial Pressure O2150.8 mm[Hg]High 80.0-100.0[facility] Medical CenterArterial Blood pH7.01Gryt3.35-7.45 [facility] CenterBlood Gas Critical ValueSee commentCommunity Regional Medical CenterComment on above:Critical Value called on: 06/06/2024 at 05:17Blood Gas PEEP5 sfU7JAqxqsqrsyCommunity Regional Medical CenterBlood Gas Pressure Fjyvaob38.0 ncQ7FUrisssiecCommunity Regional Medical CenterBlood Gas Sample SiteRight radialCommunity Regional Medical CenterFiO240 %[facility] Oxygen Delivery DeviceBipapCommunity Regional Medical CenterProtein Test strip (U) [Mass/Vol]Ordered By: Selin Rowe on 48-76-5850Ejfwcds (U) [Mass/Vol]20 mg/dLHighNegClermont County Hospitalpecific gravity Test strip (U) [Rel density]Ordered By: Selin Rowe on 48-80-2277Njbnrwmd gravity (U) [Rel density]1.0241.001-1.030[facility] Medical CenterThyrotropin [Units/volume] in Serum or PlasmaOrdered By: Naren Hinson on 06-06-2024 TSH Qn0.49 m[IU]/L0.45-5.33[facility] Medical CenterUrine appearance Ordered By: Selin Rowe on 51-17-5709Ovxnjodrsd (U)ClearClearFSt. John of God HospitalUrobilinogen Test strip (U) [Mass/Vol]Ordered By: Selin Rowe on 83-85-2670Qivrjpkwxtmv (U) [Mass/Vol]Normal mg/dLNormalCommunity Regional Medical CenterpH Test strip (U)Ordered By: Selin Rowe on 89-29-5482uI (U)6.0 [pH]5.0-9.0[facility] CenterBasophils Auto (Bld) [#/Vol]Ordered By: Selin Rowe on 80-39-0032Brnprjbgc (Bld) [#/Vol]0.0 10*3/uL0.0-0.2FSt. John of God HospitalBasophils/100 WBC Auto (Bld)Ordered By: Selin Rowe on 59-89-3207Djicguqtu/100 WBC (Bld)0.4 %.[facility] Eosinophils Auto (Bld) [#/Vol]Ordered By: Selin Rowe on 72-96-2446Vcohdwhnjfd (Bld) [#/Vol]0.1 10*3/uL0.0-0.45[facility] CenterEosinophils/100 WBC Auto (Bld)Ordered By: Selin Rowe on 94-44-6800Xmbnailqnnx/100 WBC (Bld)0.8 %.[facility] CenterErythrocyte distribution width Auto (RBC) [Ratio]Ordered By: Selin Rowe on 26-43-4205Hatjrajnyvo distribution width (RBC) [Ratio]13.6 %12.0-14.8[facility] CenterGlucose Glucometer (BldC) [Mass/Vol]Ordered By: Maryam Díaz on 68-97-8308Oacdlzr [Mass/Vol]79 mg/dLCommunity Regional Medical CenterComment on above:Random Glucose Reference Range is dependent on time and content of last meal. Glucose of more than 200 mg/dL in a nonstressed, ambulatory subject supports the diagnosis of Diabetes Mellitus.Hematocrit Auto (Bld) [Volume fraction]Ordered By: Slein Rowe on 23-62-5050Cfudsdothn (Bld) [Volume fraction]39.4 %38.8-50.0[facility] CenterHemoglobin [Mass/volume] in BloodOrdered By: Selin Rowe on 83-70-9927Vbyjluolkx (Bld) [Mass/Vol]13.5 g/dL13.0-17.0[facility] CenterLeukocytes [#/volume] corrected for nucleated erythrocytes in Blood by Automated counOrdered By: Selin Rowe on 70-22-0253PFT corrected for nucl RBC Auto (Bld) [#/Vol]6.6 10*3/uL4.1-10.5FSt. John of God Hospital Lymphocytes Auto (Bld) [#/Vol]Ordered By: Selin Rowe on 78-49-4555Smadopyhpbw (Bld) [#/Vol]1.4 10*3/uL1.00-4.8[facility] Medical CenterLymphocytes/100 WBC Auto (Bld)Ordered By: Selin Rowe on 76-43-4752Jtytusspruv/100 WBC (Bld) 21.1 %.[facility] Medical CenterMCH Auto (RBC) [Entitic mass]Ordered By: Selin Rowe on 62-93-4345HGT (RBC) [Entitic mass]32.1 pg27.5-35.2FSt. John of God HospitalMCHC Auto (RBC) [Mass/Vol]Ordered By: Selin Rowe on 50-49-0575URND (RBC) [Mass/Vol]34.3 g/dL32.5-35.6FSt. John of God HospitalMCV Auto (RBC) [Entitic vol]Ordered By: Selin Rowe on 14-16-4525XTT (RBC) [Entitic vol]93.6 fL83.5-101[facility] CenterMonocytes Auto (Bld) [#/Vol]Ordered By: Selin Rowe on 64-73-2704Wdogmutez (Bld) [#/Vol]0.8 10*3/uL0.0-0.8[facility] CenterMonocytes/100 WBC Auto (Bld) Ordered By: Selin Rowe on 39-07-1368Dwcoyxjbx/100 WBC (Bld)11.9 %.[facility] Medical CenterNeutrophils Auto (Bld) [#/Vol]Ordered By: Selin Rowe on 18-91-9997Dnvwchtdgrq (Bld) [#/Vol]4.3 10*3/uL1.8-7.7FSt. John of God HospitalNeutrophils/100 WBC Auto (Bld)Ordered By: Selin Rowe on 06-05-2024 Neutrophils/100 WBC (Bld)65.8 %.[facility] CenterNo Panel InformationOrdered By: Maryam Díaz on 59-62-7456Pbvxeoy Glucose CommentGlu2: cleaned meterCommunity Regional Medical CenterBlood Gas Liter Flow3 L/min [facility] CenterNucleated erythrocytes [Presence] in Blood by Automated countOrdered By: Selin Rowe on 77-86-6381Iovxtqgya RBC Auto Ql (Bld) 0.0 /100{WBC}0-0.5FSt. John of God HospitalPlatelet mean volume Auto (Bld) [Entitic vol]Ordered By: Selin Rowe on 64-18-2065Prfwrvgm mean volume (Bld) [Entitic vol]7.7 fL6.6-10.1FSt. John of God HospitalPlatelets Auto (Bld) [#/Vol]Ordered By: Selin Rowe on 73-28-6174Clzagawqe (Bld) [#/Vol]262 10*3/hX918-629YsnnkdpccCommunity Regional Medical CenterRBC Auto (Bld) [#/Vol]Ordered By: Selin Roew on 84-04-5787ITA (Bld) [#/Vol]4.21 10*6/uL3.90-5.60[facility] CenterWBC Auto (Bld) [#/Vol]Ordered By: Selin Rowe on 75-52-9135HMQ (Bld) [#/Vol]6.6 10*3/uL4.1-10.5FSt. John of God Hospital Provider Letteron [phone] LetterProvider Letter May 11, 2024 [place] [id number] [address] : 1985 Dear Leonardo, We have been [...] your prompt attention to this matter. Sincerely, [facility] [phone] Lake Joint Township District Memorial HospitalH PYLORI ANTIBODY IGGon 11-26-2022 H. PYLORI IGG ABS0.13 Index ValueNormal0.00-0.79[facility] Medical CenterCommunising memorial hospital on above:Result Comment: Negative <0.80 Equivocal 0.80 - 0.89 Positive >0.89Performed By: #### VITAD, IRON #### [facility] [address] [place] [address] Dr. Kinjal HayesTIS PANEL, ACUTEon 19-36-7125PCyVk ScreenNegativeNormal NegativeUniversity Hospitals St. John Medical CenterCommunising memorial hospital on above:Performed By: #### VITAD, IRON #### [facility] [address] [place] [address] Dr. Kinjal Thrasher ABReactiveAbnormalNon ReactiveThe [facility] CenterCommunising memorial hospital on above:Performed By: #### VITAD, IRON #### [facility] [address] [place] [address] Dr. Kinjal Thrasher hyz26QmkmnaJca [facility] CenterComment on above:Performed By: #### VITAD, IRON #### [facility] [address] [place] [address] Dr. Kinjal Thrasher iab409.004 log10 IU/mLNormalUniversity Hospitals St. John Medical CenterComment on above:Performed By: #### VITAD, IRON #### [facility] [address] [place] [address] Dr. Kinjal Thrasher RNA (International Units)[id number] IU/mLNormalUniversity Hospitals St. John Medical CenterComment on above:Performed By: #### VITAD, IRON #### [facility] [address] [place] [address] Dr. Kinjal Beard Ab, IgMNegativeNormalNegativeUniversity Hospitals St. John Medical CenterComment on above:Performed By: #### VITAD, IRON #### [facility] [address] [place] [address] Dr. Kinjal Martinez Core Ab, IgMNegativeMosaic Life Care At St. JosephalNegativeUniversity Hospitals St. [facility] Center Comment on above:Performed By: #### VITAD, IRON #### [facility] [address] [place] [address] Dr. Kinjal Quiñones QuantitationSee Final ResultsNoMercy Health Clermont Hospital Comment on above:Performed By: #### VITAD, IRON #### [facility] [address] [place] [address] Dr. Kinjal RuvalcabaInterpretationComCleveland Clinic Fairview HospitalComment on above: Result Comment: Positive HCV antibody screen with the presence of HCV RNA is consistent with active infection.Performed By: #### VITAD, IRON #### [facility] [address] [place] [address] Dr. Kinjal Escobar Information:CommentUpper Valley Medical CenterComment on above:Result Comment: The quantitative range of this assay is 15 IU/mL to 100 million IU/mL.Performed By: #### VITAD, IRON #### [facility] [address] [place] [address] Dr. Kinjal RuvalcabaINSULINon 30-32-8969Zxkzcks4.5 uIU/mLNormal2.6-24.9The [facility] CenterComment on above:Performed By: #### INSULIN #### [facility] [address] [place] [address] Dr. Kinjal RuvalcabaTESTOSTERONE, TOTALon 66-20-8878Aexzhmqofqse [Mass/Vol]603 ng/dL Wdruol829-434Eqp [facility] CenterComment on above:Result Comment: Adult male reference interval is based on a population of healthy nonobese males (BMI <30) between 19 and 39 years old. brady Zhong.al. JCEM 2017,102;3888-6891. PMID: [id number].Performed By: #### VITAD, IRON #### [facility] [address] [place] [address] [address] Kinjal Ramires AUTO DIFFon 55-55-3378TTJI #0.0 103/ulNormal0.0-0.1The [facility] Warren Hospitalment on above:Performed By: #### CBC #### [facility] [address] [place] [address] Dr. Kinjal RuvalcabaBasophils/100 WBC (Bld)0.4 %Normal0.2-2.0[facility] Comment on above:Performed By: #### CBC #### [facility] [address] [place] [address] Dr. Kinjal Rodriguez #0.0 103/ulNormal0.0-0.7The [facility]itt[facility] Medical CenterComment on above: Performed By: #### CBC #### [facility] [address] [place] [address] Dr. Kinjal Eastosinophils/100 WBC (Bld)0.1 %Critically low0.9-7.0The [facility]itt[facility] Medical CenterComment on above:Performed By: #### CBC #### [facility] [address] [place] [address] Dr. Kinjal Esatrythrocyte distribution width (RBC) [Ratio]11.9 %Kqhadv39.0-15.0 [facility] Hospitalment on above:Performed By: #### CBC #### [facility] [address] [place] [address] Dr. Kinjal RuvalcabaHematocrit (Bld) [Volume fraction]41.3 %Critically low42.0-54.0 [facility] Community Hospitalment on above:Performed By: #### CBC #### [facility] [address] [place] [address] Dr. Kijnal RuvalcabaHemoglobin (Bld) [Mass/Vol]14.6 g/mAXeluav92.0-18.0The [facility] Hospitalment on above:Performed By: #### CBC #### [facility] [address] [place] [address] Dr. Kinjal Harmon #0.02 10e3/ulNormal0.00-0.03The [facility] Medical CenterComment on above:Performed By: #### CBC #### [facility] [address] [place] [address] Dr. Kinjal Harmon %0.3 %Normal0.0-0.5The [facility] CenterComment on above: Performed By: #### CBC #### [facility] [address] [place] [address] Dr. Kinjal Quiroz #1.2 103/ulNormal1.2-3.8The [facility] CenterComment on above:Performed By: #### CBC #### [facility] [address] [place] [address] Dr. Kinjal Treviñohocytes/100 WBC (Bld)15.7 %Critically low20.5-60.0The [facility] CenterComment on above:Performed By: #### CBC #### [facility] [address] [place] [address] Dr. Kinjal Bueno DIFF REQNONormalThe [facility] CenterComment on above: Performed By: #### CBC #### [facility] [address] [place] [address] Dr. Kinjal Fisher (RBC) [Entitic mass]31.0 ekRitadr60.9-34.0The [facility] Medical CenterComment on above:Performed By: #### CBC #### [facility] [address] [place] [address] Dr. Kinjal Hernandez (RBC) [Mass/Vol]35.4 g/dLCritically high29.9-35.2The [facility] Medical CenterComment on above:Performed By: #### CBC #### [facility] [address] [place] [address] Dr. Kinjal Hernandez (RBC) [Entitic vol]87.7 kIOagdgz99.0-94.0The [facility] CenterComment on above:Performed By: #### CBC #### [facility] [address] [place] [address] Dr. Kinjal Dhillon #0.4 103/ulNormal0.3-0.8The [facility] CenterComment on above:Performed By: #### CBC #### [facility] [address] [place] [address] Dr. Kinjal Ireneocytes/100 WBC (Bld)5.2 %Normal1.7-12.0The [facility] Comment on above:Performed By: #### CBC #### [facility] [address] [place] [address] Dr. Kinjal MeyersUT #6.0 103/ulNormal1.4-6.5The [facility] CenterComment on above:Performed By: #### CBC #### [facility] [address] [place] [address] Dr. Kinjal Meyersutrophils/100 WBC (Bld)78.3 %Critically high43.0-75.0The [facility] CenterComment on above:Performed By: #### CBC #### [facility] [address] [place] [address] Dr. Kinjal RuvalcabaPlatelet mean volume (Bld) [Entitic vol]10.7 fLNormal9.5-13.5The [facility] CenterComment on above:Performed By: #### CBC #### [facility] [address] [place] [address] Dr. Kinjal RuvalcabaPLT243 103/rgDoxsur376-883Jue [facility] CenterComment on above: Performed By: #### CBC #### [facility] [address] [place] [address] Dr. Kinjal RuvalcabaRBC4.71 106/ulNormal4.70-6.10The [facility] CenterComment on above:Performed By: #### CBC #### [facility] [address] [place] [address] Dr. Kinjal RuvalcabaWBC7.7 103/ulNormal4.0-11.0The [facility] Medical CenterComment on above: Performed By: #### CBC #### [facility] [address] [place] [address] Dr. Kinjal AguilarLTISMA URINEon 75-89-2502RKZJUYB URINECulture Observations: NO GROWTH.NormalThe [facility] Medical CenterComment on above:Performed By: #### URCX #### [facility] [address] [address] [address] Kinjal Graves THYROXINE INDEX T7on 78-63-0138XFF4.82Bbxwii7.30-4.50The [facility] Medical CenterComment on above:Performed By: #### LIPID, CMP, T7, TSH #### [facility] [address] [address] [address] Kinjal RuvalcabaT3U31.0 %Critically low33.0-40.0The [facility] Hospitalment on above:Performed By: #### LIPID, CMP, T7, TSH #### [facility] [address] [place] [address] Dr. Kinjal RuvalcabaT4 [Mass/Vol]12.10 ug/dLNormal4.50-12.10The [facility] Comment on above:Performed By: #### LIPID, CMP, T7, TSH #### [facility] [address] [place] [address] Dr. Kinjal RuvalcabaGLYCOHEMOGLOBIN A1Con 31-65-7851DWP RECOMMENDATIONSEE BELOWNormal The [facility] CenterCommunising memorial hospital on above:Result Comment: ADA RECOMMENDED LIMIT 4.0 - 6.0 ADA THERAPEUTIC TARGET < 7.0 ACTION SUGGESTED > 7.0Performed By: #### VITAD, IRON #### [facility] [address] [place] [address] Dr. Kinjal RuvalcabaGlucose [Mass/Vol]100 mg/dLNormalThe [facility] CenterCommunising memorial hospital on above:Performed By: #### VITAD, IRON #### [facility] [address] [place] [address] Dr. Kinjal RuvalcabaHbA1c (Bld) [Mass fraction]5.1 %Normal4.5-6.2The [facility] Ritt[facility] Medical CenterComment on above:Performed By: #### VITAD, IRON #### [facility] [address] [place] [address] Dr. Kinjal Wong 35-30-9570Zblh [Mass/Vol]110.0 ug/sCMyfxba90.0-175.0[facility] St. John Medical CenterComment on above:Performed By: #### VITAD, IRON #### [facility] [address] [place] [address] Dr. Kinjal Keller PROFILEon 87-89-7721VYZV-HDL RATIO NORMSEE BELOWUpper Valley Medical CenterComment on above:Result Comment: 3.3 - 4.4 LOW RISK 4.4 - 7.1 AVERAGE RISK 7.1 - 11.0 MODERATE RISK >11.0 HIGH RISKPerformed By: #### LIPID, CMP, T7, TSH #### [facility] [address] [place] [address] Dr. Kinjal Underwoodesterol [Mass/Vol]185 mg/dLNormal<=200The [facility] Comment on above:Performed By: #### LIPID, CMP, T7, TSH #### [facility] [address] [place] [address] Dr. Kinjal Bentonol in HDL [Mass/Vol]63 mg/dLCritically cliw06-83WtcUniversity Hospitals St. John Medical CenterComment on above:Performed By: #### LIPID, CMP, T7, TSH #### [facility] [address] [place] [address] Dr. Kinjal Underwoodesterol in LDL [Mass/Vol]107.6 mg/dLNoMercy Health Clermont HospitalComment on above:Performed By: #### LIPID, CMP, T7, TSH #### [facility] [address] [place] [address] Dr. Kinjal Thompson.total/Cholesterol in HDL [Mass ratio]2.9 {ratio} NormalUniversity Hospitals St. John Medical CenterComment on above:Performed By: #### LIPID, CMP, T7, TSH #### [facility] [address] [place] [address] Dr. Kinjal Parker NORMAL> or = 60 mg/dl - LOW CARDIOVASCULAR RISK <40 mg/dl - HIGH CARDIOVASCULAR RISKNoMercy Health Clermont HospitalComment on above:Performed By: #### LIPID, CMP, T7, TSH #### [facility] [address] [address] [address] Kinjal RuvalcabaLDL CALC NORMALSEE BELOWUpper Valley Medical CenterComment on above:Result Comment: <100 mg/dl OPTIMAL 100 - 129 mg/dl NEAR OR ABOVE OPTIMAL 130 - 159 mg/dl BORDERLINE HIGH 160 - 189 mg/dl HIGH >190 mg/dl VERY HIGH Performed By: #### LIPID, CMP, T7, TSH #### [facility] [address] [address] [address] Kinjal RuvalcabaTriglyceride [Mass/Vol]72 mg/dLNormal<=150The [facility] Comment on above:Performed By: #### LIPID, CMP, T7, TSH #### [facility] [address] [place] [address] Dr. Kinjal RuvalcabaVLDL CALC14.4 mg/dLNoMercy Health Clermont HospitalComment on above: Performed By: #### LIPID, CMP, T7, TSH #### [facility] [address] [place] [address] Dr. Kinjal ArringtonALBUMIN, RAND URon 18-58-1117jJEM<1.3Normal<=30.0The [facility]itt[facility] Medical CenterComment on above:Performed By: #### MALBR #### [facility] [address] [place] [address] Dr. Kinjal RuvalcabaPROF 14(COMP METB)on 30-98-5788Wjpdwpf [Mass/Vol]4.4 g/dLNormal 3.4-5.0The [facility] Medical CenterComment on above:Performed By: #### LIPID, CMP, T7, TSH #### [facility] [address] [place] [address] Dr. Kinjal RuvalcabaAlbumin/Globulin [Mass ratio]1.4 {ratio}NormalThe [facility] Medical CenterComment on above:Performed By: #### LIPID, CMP, T7, TSH #### [facility] [address] [place] [address] Dr. Kinjal RuvalcabaALP [Catalytic activity/Vol]67 U/EWsutla39-732Gtk [facility] CenterComment on above:Performed By: #### LIPID, CMP, T7, TSH #### [facility] [address] [address] [address] Kinjal Thomas [Catalytic activity/Vol]69 U/LCritically nmhh81-69Vxo [facility] CenterComment on above:Performed By: #### LIPID, CMP, T7, TSH #### [facility] [address] [place] [address] Dr. Kinjal Tysonon gap [Moles/Vol]15.3 mmol/LNormalThe [facility] Comment on above:Performed By: #### LIPID, CMP, T7, TSH #### [facility] [address] [place] [address] Dr. Kinjal Johnson [Catalytic activity/Vol]29 U/SRaaivb41-94Ebk [facility] CenterComment on above:Performed By: #### LIPID, CMP, T7, TSH #### [facility] [address] [place] [address] Dr. Kinjal RuvalcabaBilirubin [Mass/Vol]0.8 mg/dLNormal0.2-1.0[facility] Comment on above:Performed By: #### LIPID, CMP, T7, TSH #### [facility] [address] [place] [address] Dr. Kinjal RuvalcabaCalcium [Mass/Vol]9.1 mg/dLNormal8.5-10.1[facility] Comment on above:Performed By: #### LIPID, CMP, T7, TSH #### [facility] [address] [place] [address] Dr. Kinjal RuvalcabaChloride [Moles/Vol]102 mmol/EZctutx11-842Uos [facility] Comment on above:Performed By: #### LIPID, CMP, T7, TSH #### [facility] [address] [place] [address] Dr. Kinjal RuvalcabaCO2 [Moles/Vol]25.5 mmol/NZfwdag27.0-32.0[facility] Comment on above:Performed By: #### LIPID, CMP, T7, TSH #### [facility] [address] [place] [address] Dr. Kinjal RuvalcabaCreatinine [Mass/Vol]1.41 mg/dLCritically high0.70-1.30The [facility] Medical CenterComment on above:Performed By: #### LIPID, CMP, T7, TSH #### [facility] [address] [address] [address] Kinjal EastGFR-AF CITIZEN OF [place]>60Normal>=60The [facility]itt[facility] Medical CenterComment on above:Performed By: #### LIPID, CMP, T7, TSH #### [facility] [address] [address] [address] Kinjal EastGFR-NON AF KQFJTGUP93 mL/min/1.96z6Lvcprgmtyd low>=60The [facility] Medical CenterComment on above:Performed By: #### LIPID, CMP, T7, TSH #### [facility] [address] [place] [address] Dr. Kinjal RuvalcabaGlobulin (S) [Mass/Vol]3.1 g/dLNormalThe [facility] CenterComment on above:Performed By: #### LIPID, CMP, T7, TSH #### [facility] [address] [address] [address] Kinjal RuvalcabaGlucose [Mass/Vol]115 mg/dLCritically qyzp33-504Vsr [facility] CenterComment on above:Performed By: #### LIPID, CMP, T7, TSH #### [facility] [address] [address] [address] Kinjal RuvalcabaPotassium [Moles/Vol]3.8 mmol/LNormal3.5-5.1[facility] Comment on above:Performed By: #### LIPID, CMP, T7, TSH #### [facility] [address] [address] [address] Kinjal RuvalcabaProtein [Mass/Vol]7.5 g/dLNormal6.4-8.2The [facility] Comment on above:Performed By: #### LIPID, CMP, T7, TSH #### [facility] [address] [address] [address] Kinjal RuvalcabaSodium [Moles/Vol]139 mmol/YAasapm571-243Xut [facility] Comment on above:Performed By: #### LIPID, CMP, T7, TSH #### [facility] [address] [address] [address] Kinjal Champion nitrogen [Mass/Vol]13.0 mg/dLNormal7.0-18.0The [facility] CenterComment on above:Performed By: #### LIPID, CMP, T7, TSH #### [facility] [address] [address] [address] Kinjal Champion nitrogen/Creatinine [Mass ratio]9.2 mg/mgNormalThe [facility] Medical CenterComment on above:Performed By: #### LIPID, CMP, T7, TSH #### [facility] [address] [place] [address] Dr. Kinjal Renteria 76-72-0185ITQ9.152 uIU/mLNormal0.358-3.740The [facility] Medical CenterComment on above:Performed By: #### LIPID, CMP, T7, TSH #### [facility] [address] [place] [address] Dr. Kinjal Nguyen RANDOM W/MICROSCOPICon 70-73-1312CVOBVJHUDFVM SEENNormalNONE SEENUniversity Hospitals St. John Medical CenterComment on above:Performed By: #### VITAD, IRON #### [facility] [address] [place] [address] Dr. Kinjal Richardson Ql (U)NegativeNormalNEGATIVEUniversity Hospitals St. John [facility] Center Comment on above:Performed By: #### VITAD, IRON #### [facility] [address] [place] [address] Dr. Kinjal Toledo SEENNormalNONE SEENUniversity Hospitals St. John Medical CenterComment on above:Performed By: #### VITAD, IRON #### [facility] [address] [place] [address] Dr. Kinjal Dean (U)CLEARNormalCLEARUniversity Hospitals St. John Medical CenterComment on above: Performed By: #### VITAD, IRON #### [facility] [address] [place] [address] Dr. Kinjal Mata (U)YELLOWNormalYELLOWThe Marquise HospitalComment on above: Performed By: #### VITAD, IRON #### [facility] [address] [address] [address] Kinjal RuvalcabaCrystals LM Nom (Urine sed)NONE SEENNormalNONE SEENUniversity Hospitals St. John Medical CenterComment on above:Performed By: #### VITAD, IRON #### [facility] [address] [address] [address] Kinjal Eastpithelial cells LM Ql (Urine sed)RARENormalNONE SEEN /RAREUniversity Hospitals St. John Medical CenterCommunising memorial hospital on above:Performed By: #### VITAD, IRON #### [facility] [address] [address] [address] Kinjal RuvalcabaGlucose Ql (U)NegativeNormalNEGATIVEProMedica Flower Hospital on above:Performed By: #### VITAD, IRON #### [facility] [address] [address] [address] Kinjal RuvalcabaHemoglobin Ql (U)NegativeNormalNEGATIVEMadison Health on above:Performed By: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 http://www.Urgent.ly.[employer]/multiple_crcl_2011.htmPerformed By: #### CDP, CP, LIPR, TSHX, TREP, HIVCMB, HSVPR #### [address] [address] Guide Escort: Satya Valdez MD #### AHIshmaelGEN #### [facility] [address], [place] [id number] Guide Escort: Remi Harman MDAlbumin [Mass/Vol]4.4 g/dLNormal3.5-5.2[facility] HospitalComment on above:Performed By: #### CDP, CP, LIPR, TSHX, TREP, HIVCMB, HSVPR #### [facility] [address] [place] [address] Guide Escort: Satya Valdez MD #### CLEVELANDCGEN #### [facility] [address] [place] [address] Guide Escort: Remi Harman MDAlbumin/Globulin [Mass ratio]1.9 {ratio}Normal 1.0-2.5Tr[facility] Medical CenterComment on above:Performed By: #### CDP, CP, LIPR, TSHX, TREP, HIVCMB, HSVPR #### [address] [address] Guide Escort: Satya Valdez MD #### CLEVELANDCGEN #### [facility] [address] [place] [address] Guide Escort: Diego Meléndezline Phos63 U/HGjuzvq81-109ObrbgTrumbull Regional Medical CenterComment on above:Performed By: #### CDP, CP, LIPR, TSHX, TREP, HIVCMB, HSVPR #### [address] [address] Guide Escort: Satya Valdez MD #### CLEVELANDCGEN #### [facility] [address] [place] [address] [phone] Guide Escort: Remi Harman MDALT [Catalytic activity/Vol]50 U/LHigh5-41[facility] Medical CenterComment on above:Performed By: #### CDP, CP, LIPR, TSHX, TREP, HIVCMB, HSVPR #### [address] [address] Guide Escort: Satya Valdez MD #### CLEVELANDCGEN #### [facility] [address] [place] [address] Guide Escort: Gilberto Meléndezon gap [Moles/Vol]15 mmol/LNormal9-17[facility] Medical CenterComment on above:Performed By: #### CDP, CP, LIPR, TSHX, TREP, HIVCMB, HSVPR #### [facility] [address] [place] [address] Guide Escort: Satya Valdez MD #### AHCGEN #### [facility] [address] [place] [address] Guide Escort: Remi Harman MDAST [Catalytic activity/Vol]37 U/LNormal<40[facility] Medical CenterComment on above:Performed By: #### CDP, CP, LIPR, TSHX, TREP, HIVCMB, HSVPR #### [address] [address] Guide Escort: Satya Valdez MD #### AHCGEN #### [facility] [address] [place] [address] Guide Escort: Remi Harman MDBilirubin Ql (U)0.35 mg/dLNormal0.3-1.2MKaiser Foundation HospitalComment on above:Performed By: #### CDP, CP, LIPR, TSHX, TREP, HIVCMB, HSVPR #### [facility] [address] [place] [address] Guide Escort: Satya Valdez MD #### AHCGEN #### [facility] [address] [place] [address] Guide Escort: RENNY Meléndezalcium [Mass/Vol]9.6 mg/dLNormal8.6-10.4[facility] Medical CenterComment on above:Performed By: #### CDP, CP, LIPR, TSHX, TREP, HIVCMB, HSVPR #### [facility] [address] [place] [address] Guide Escort: Satya Valdez MD #### AHCGEN #### [facility] [address] [place] [address] Guide Escort: RENNY Meléndezhloride [Moles/Vol]101 mmol/DZpkwhx76-050DvmisTrumbull Regional Medical CenterComment on above:Performed By: #### CDP, CP, LIPR, TSHX, TREP, HIVCMB, HSVPR #### [facility] [address] [place] [address] Guide Escort: Satya Valdez MD #### AHCGEN #### [facility] [address] [place] [address] Guide Escort: RENNY MeléndezO2 [Moles/Vol]24 mmol/RYqeykc07-64OfmhjTrumbull Regional Medical CenterComment on above:Performed By: #### CDP, CP, LIPR, TSHX, TREP, HIVCMB, HSVPR #### [address] [address] Guide Escort: Satya Valdez MD #### AHCGEN #### [facility] [address] [place] [address] [phone] Guide Escort: RENNY Meléndezreatinine [Mass/Vol]1.26 mg/dLHigh0.70-1.20[facility] Medical CenterComment on above:Performed By: #### CDP, CP, LIPR, TSHX, TREP, HIVCMB, HSVPR #### [facility] [address] [place] [address] Guide Escort: Satya Valdez MD #### AHCGEN #### [facility] [address] [place] [address] [phone] Guide Escort: Remi Harman MDGFR, Amer>60Normal>60[facility] Medical CenterComment on above:Performed By: #### CDP, CP, LIPR, TSHX, TREP, HIVCMB, HSVPR #### [facility] [address] [place] [address] Guide Escort: Satya Valdez MD #### AHCGEN #### [facility] [address] [place] [address] Guide Escort: Remi Harman MDGFR,non Amer>60Normal>60[facility] HospitalComment on above:Performed By: #### CDP, CP, LIPR, TSHX, TREP, HIVCMB, HSVPR #### [facility] [address] [place] [address] Guide Escort: Satya Valdez MD #### AHCGEN #### [facility] [address] [place] [address] [phone] Guide Escort: Remi Harman MDGlucose [Mass/Vol]85 mg/qOZlntjb55-21Mshrw [facility] Memorial HospitalComment on above:Performed By: #### CDP, CP, LIPR, TSHX, TREP, HIVCMB, HSVPR #### [facility] [address] [place] [address] Guide Escort: Satya Valdez MD #### AHCGEN #### [facility] [address], [place] [id number] Guide Escort: Ion Meléndezssium [Moles/Vol]4.2 mmol/LNormal3.7-5.3[facility] HospitalComment on above:Performed By: #### CDP, CP, LIPR, TSHX, TREP, HIVCMB, HSVPR #### [facility] [address] [place] [address] Guide Escort: Satya Valdez MD #### AHCGEN #### [facility] [address], [place] [id number] Guide Escort: Remi Harman, MDProtein [Mass/Vol]6.7 g/dLNormal6.4-8.3MKaiser Foundation HospitalComment on above:Performed By: #### CDP, CP, LIPR, TSHX, TREP, HIVCMB, HSVPR #### [address] [address] Guide Escort: Satya Valdez MD #### AHCGEN #### [facility] [address] [place] [address] Guide Escort: BRYNN Meléndezodium [Moles/Vol]140 mmol/VErzega782-525UrzeyTrumbull Regional Medical CenterComment on above:Performed By: #### CDP, CP, LIPR, TSHX, TREP, HIVCMB, HSVPR #### [place] [address] Guide Escort: Satya Valdez MD #### AHCGEN #### [facility] [address] [place] [address] [phone] Guide Escort: Remi Harman MDUrea nitrogen [Mass/Vol]16 mg/dLNormal6-20[facility] Medical CenterComment on above:Performed By: #### CDP, CP, LIPR, TSHX, TREP, HIVCMB, HSVPR #### [place] [address] Guide Escort: Satya Valdez MD #### AHCGEN #### [facility] [address] [place] [address] Guide Escort: Remi Harman MDHIV Ag/Abon 46-95-4140EOS Ag/AbNONREACTIVENormal [facility] Health SystemComment on above:Result Comment: No laboratory evidence of HIV infection. If acute HIV infection is suspected, consider testing for HIV-1 RNA.Performed By: #### CDP, CP, LIPR, TSHX, TREP, HIVCMB, HSVPR #### [address] [address] Guide Escort: Satya Valdez MD #### CGEN #### [facility] [address] [place] [address] Guide Escort: Remi Harman MDHep A Ab,IgMon 50-07-5383Cws A Ab,IgMNONREACTIVE (NR)[facility] CenterComment on above:Performed By: #### CDP, CP, LIPR, TSHX, TREP, HIVCMB, HSVPR #### [address] [address] Guide Escort: Satya Valdez MD #### CGEN #### [address] [phone] Guide Escort: Remi Harman MDNote: Responsible Observer: CEEV AUTOFILE (3003) Hep B Core Abon 23-91-3285Crg B Core AbNONREACTIVE(NR)[facility] Medical CenterComment on above:Performed By: #### CDP, CP, LIPR, TSHX, TREP, HIVCMB, HSVPR #### [address] [address] Guide Escort: Satya Valdez MD #### AHCGEN #### [address] [phone] Guide Escort: Remi Harman MDNote: Responsible Observer: CEEV AUTOFILE (3003) Hep B Surf Abon 27-54-2796Yip B Surf Ab<3.50Normal<10MerRiverside Community HospitalComment on above:Result Comment: REFERENCE RANGE: <10.0 NON-REACTIVE/NOT IMMUNE >=10.0 REACTIVE/IMMUNEPerformed By: #### CDP, CP, LIPR, TSHX, TREP, HIVCMB, HSVPR #### [address] [id number] Guide Escort: Satya Valdez MD #### AHCGEN #### [facility] [address] [place], [place] [id number] Guide Escort: Remi Harman MDHep B Surf Agon 21-57-6520Brg B Surf Ag NONREACTIVE(NR)[facility] Medical CenterComment on above:Performed By: #### CDP, CP, LIPR, TSHX, TREP, HIVCMB, HSVPR #### [facility] [address] [place] [address] [phone] Guide Escort: Satya Valdez MD #### AHCGEN #### [facility] [address] [place] [address] Guide Escort: Remi Harman MDNote: Responsible Observer: DIANA AUTOFILE (3088) Lipid Prof, Fastingon 14-95-5650Evlnctaszkt [Mass/Vol]191 mg/dLNormal<200[facility] Medical CenterComment on above:Result Comment: Cholesterol Guidelines: <200 Desirable 200-240 Borderline >240 UndesirablePerformed By: #### CDP, CP, LIPR, TSHX, TREP, HIVCMB, HSVPR #### [address] [id number] Guide Escort: Satya Valdez MD #### AHCGEN #### [facility] [address], [place] [phone] Guide Escort: RENNY Meléndezholesterol in HDL [Mass/Vol]55 mg/dLNormal>40 [facility] Medical CenterComment on above:Result Comment: HDL Guidelines: <40 Undesirable 40-59 Borderline >59 DesirablePerformed By: #### CDP, CP, LIPR, TSHX, TREP, HIVCMB, HSVPR #### [facility] [address] [place] [address] [phone] Guide Escort: Satya Valdez MD #### AHCGEN #### [facility] [address] [place] [address] Guide Escort: RENNY Meléndezholesterol in LDL [Mass/Vol]79 mg/dLNormal0-130 [facility] CenterComment on above:Result Comment: LDL Guidelines: <100 Desirable 100-129 Near to/above Desirable 130-159 Borderline >159 Undesirable Direct (measured) LDL and calculated LDL are not interchangeable tests.Performed By: #### CDP, CP, LIPR, TSHX, TREP, HIVCMB, HSVPR #### [facility] [address] [place] [address] Guide Escort: Satya Valdez MD #### AHCGEN #### [facility] [address] [place] [address] Guide Escort: Timo Meléndez.total/Cholesterol in HDL [Mass ratio] 3.5 {ratio}Normal<5[facility] Medical CenterComment on above:Performed By: #### CDP, CP, LIPR, TSHX, TREP, HIVCMB, HSVPR #### [facility] [address] [place] [address] Guide Escort: Satya Valdez MD #### AHCGEN #### [facility] [address] [place] [address] Guide Escort: Remi Harman MDTriglyceride,Sptzlmj202 mg/dLHigh<150[facility] Medical CenterComment on above:Result Comment: Triglyceride Guidelines: <150 Desirable 150-199 Borderline 200-499 High >499 Very high Based on AHA Guidelines for fasting triglyceride, May 2012.Performed By: #### CDP, CP, LIPR, TSHX, TREP, HIVCMB, HSVPR #### [facility] [address] [place] [id number] Guide Escort: Satya Valdez MD #### AHCGEN #### [facility] [address] [place] [address] Guide Escort: Remi Harman MDLiver Fibrosis Panelon [id number] Cnt,Mtiaq854AzxieRiverside Community HospitalComment on above:Performed By: #### CDP, CP, LIPR, TSHX, TREP, HIVCMB, HSVPR #### [facility] [address] [place] [address] Guide Escort: Satya Valdez MD #### CGEN #### [facility] [address], [place] [id number] Guide Escort: Remi Harman MDNote: Responsible Observer: FELIPA ELLIS (129) PSA, Screeningon [id number] Spec. Ag0.49 ug/L(<4.1)[facility] Medical CenterComment on above:Result Comment: The Martina ECLIA assay is used. Results obtained with different assay methods cannot be used interchangeably.Performed By: #### CDP, CP, LIPR, TSHX, TREP, HIVCMB, HSVPR #### [facility] [address] [place] [address] Guide Escort: Satya Valdez MD #### CLEVELANDCGEN #### [facility] [address] [place] [address] Guide Escort: Remi Harman MDNote: The Martina ECLIA assay is used. Results obtained with different assay methodscannot be used interchangeably.Responsible Observer: CEEV AUTOFILE (3003)TSH w/reflex to FT4on [id number] Qn0.93 m[IU]/L Normal0.30-5.00[facility] Medical CenterComment on above:Performed By: #### CDP, CP, LIPR, TSHX, TREP, HIVCMB, HSVPR #### [facility] [address] [place] [address] Guide Escort: Satya Valdez MD #### AHCGEN #### [facility] [address], [place] [id number] Guide Escort: Remi Harman [facility] MIDWEST CITYBCon [id number] (Bld) [#/Vol]0.0 10*3/uL0.0 per 100 WBCSelect Medical Specialty Hospital - AkronJohn 36-53-6363Uazijysaykq [Mass/Vol]191 mg/dL(<200)[facility] Work Phone: Comment on above:Note: Cholesterol Guidelines:<200 Emzkphzpz656-763 Borderline>240 UndesirableResponsible Observer: EMETERIO PENALOZA (2638)Comp Metabolic Profon 27-54-7415OIC/CRE RatioNOT REPORTED(05-08)[facility] Medical CenterComment on above:Performed By: #### CDP, CP, LIPR, TSHX, TREP, HIVCMB, HSVPR #### [facility] [address] [place] [address] [id number] Guide Escort: Satya Valdez MD #### AHCGEN #### [facility] [address], [place] [id number] Guide Escort: BRYNN Meléndeztaging:NOT REPORTEDTrumbull Regional Medical CenterComment on above:Performed By: #### CDP, CP, LIPR, TSHX, TREP, HIVCMB, HSVPR #### [facility] [address] [place] [address] [id number] Guide Escort: Satya Valdez MD #### AHCGEN #### [facility] [address] [place] [address] Guide Escort: Remi Harman MDHCV Genotype, PCRon [id number] Viral LoadNOT REPORTEDTrumbull Regional Medical CenterComment on above:Performed By: #### CDP, CP, LIPR, TSHX, TREP, HIVCMB, HSVPR #### [facility] [address] [place] [address] [id number] Guide Escort: Satya Valdez MD #### AHCGEN #### [facility] [address] [place] [address] Guide Escort: Remi Harman MDHematologyon [id number] (Bld) [Volume fraction]44.0 %(40.7-50.3)[facility] on above:Note: Responsible Observer: XNV AUTOFILE (3018)Hemoglobin (Bld) [Mass/Vol]14.6 g/dL(13.0-17.0) [facility] on above:Note: Responsible Observer: XNV AUTOFILE (3018)MCH (RBC) [Entitic mass]31.1 pg(25.2-33.5)[facility] on above:Note: Responsible Observer: XNV AUTOFILE (3018)MCV (RBC) [Entitic vol]93.6 fL(82.6-102.9)[facility] on above:Note: Responsible Observer: XNV AUTOFILE (3018)Platelets (Bld) [#/Vol]293 10*3/uL(138-453)[facility] on above:Note: Responsible Observer: XNV AUTOFILE (3018)RBC (Bld) [#/Vol]4.70 10*6/uL(4.21-5.77)[facility] on above:Note: Responsible Observer: XNV AUTOFILE (3018)WBC (Bld) [#/Vol]6.1 10*3/uL(3.5-11.3) [facility] on above:Note: Responsible Observer: XNV AUTOFILE (3018)INR Coag (PPP) [Relative time]1.0 {INR}[facility] on above: Therapeutic Range: Moderate Anticoagulant Intensity: INR = 2.0-3.0 High Anticoagulant Intensity: INR = 2.5-3.5 Note: Therapeutic Range:Moderate Anticoagulant Intensity:INR = 2.0-3.0High Anticoagulant Intensity:INR = 2.5-3.5Responsible Observer: AUTOFILE BCS (2005)PT Coag (PPP) [Time]10.2 s(9.0-12.0)[place], KYComment on above:Note: Responsible Observer: AUTOFILE BCS (2005)WBC (Bld) [#/Vol]0.0 per_100_WBC(0.0) [facility] Work Phone: Comment on above:Note: Responsible Observer: XNV AUTOFILE (3717)Hepatitis A Antibody, IgMon 70-96-8249NGO IgM IA Qn (S) NONREACTIVENONREACTIVESelect Medical Specialty Hospital - [place], ORHepatitis B Core Antibody, Totalon 22-23-5886Ifp B Core Total AbNONREACTIVENONREACTIVESelect Medical [facility] [place], ORHepatitis B Surface Antibodyon 16-69-9965SUH surface Ab (S) [Titer]<3.50<10 mIU/mLHad[place], KYCommunising memorial hospital on above: REFERENCE RANGE: <10.0 NON-REACTIVE/NOT IMMUNE >=10.0 REACTIVE/IMMUNE Hepatitis B Surface Antigenon 96-95-9356Qbxoiegrw B Surface AgNONREACTIVE NONREACTIVESelect Medical Specialty Hospital - [place], ORLipid Prof, Fastingon 25-98-5671Qvliahpiqtv in VLDL [Mass/Vol]NOT REPORTEDNormal1-30[facility] Medical CenterComment on above:Performed By: #### CDP, CP, LIPR, TSHX, TREP, HIVCMB, HSVPR #### [facility] [address] [place], [place] [id number] Guide Escort: Satya Valdez MD #### [facility] #### [facility] [address] [place] [address] Guide Escort: Remi Harman, MDMetabolic Panelon 98-63-4331Plgtxnc [Mass/Vol]4.4 g/dL(3.5-5.2)[facility] Work Phone: Comment on above:Note: Responsible Observer: EMETERIO PENALOZA (1909)ALT [Catalytic activity/Vol]50 U/LHigh(5-41)[facility] Work Phone: Comment on above:Note: Responsible Observer: EMETERIO PENALOZA (8904)Anion gap [Moles/Vol]15 mmol/L(9-17)[facility] Hospital Work Phone: Comment on above:Note: Responsible Observer: EMETERIO PENALOZA (1583)AST [Catalytic activity/Vol]37 U/L(<40)[facility] Work Phone: Comment on above:Note: Responsible Observer: EMETERIO PENALOZA (2915)Bilirubin [Mass/Vol]0.35 mg/dL(0.3-1.2)[facility] Work Phone: Comment on above:Note: Responsible Observer: EMETERIO PENALOZA (3281)Calcium [Mass/Vol]9.6 mg/dL(8.6-10.4)[facility] Work Phone: Comment on above:Note: Responsible Observer: EMETERIO PENALOZA (757)Chloride [Moles/Vol]101 mmol/L(98-107)[facility] Work Phone: Comment on above:Note: Responsible Observer: EMETERIO PENALOZA (3371)CO2 [Moles/Vol]24 mmol/L(20-31)[facility] Work Phone: Comment on above:Note: Responsible Observer: EMETERIO PENALOZA (9771)Creatinine [Mass/Vol]1.26 mg/dLHigh(0.70-1.20)[facility] Work Phone: Comment on above:Note: Responsible Observer: EMETERIO PENALOZA (1274)Glucose [Mass/Vol]85 mg/dL(70-99)[facility] Work Phone: Comment on above:Note: Responsible Observer: EMETERIO PENALOZA (7615)Potassium [Moles/Vol]4.2 mmol/L(3.7-5.3)[facility] Work Phone: Comment on above:Note: Responsible Observer: EMETERIO PENALOZA (3988)Protein [Mass/Vol]6.7 g/dL(6.4-8.3)[facility] Work Phone: Comment on above:Note: Responsible Observer: EMETERIO PENALOZA (6498)Sodium [Moles/Vol]140 mmol/L(135-144)[facility] Work Phone: Comment on above:Note: Responsible Observer: EMETERIO PENALOZA (0981)Urea nitrogen [Mass/Vol]16 mg/dL(6-20)[facility] Work Phone: Comment on above:Note: Responsible Observer: EMETERIO PENALOZA (2886)Urea nitrogen [Mass/Vol]17 mg/dL(7-20)[facility] Work Phone: Comment on above:Note: Responsible Observer: [facility] (0603)Otheron 12-59-5234MUK Ag/AbNONREACTIVE(NR)[place], KYComment on above:No laboratory evidence of HIV infection. If acute HIV infection is suspected, consider testing for HIV-1 RNA. Note: No laboratory evidence of HIV infection. If acute HIV infection is suspected,consider testingfor HIV-1 RNA.Responsible Observer: BURT SCHMIDT (6996)Erythrocyte distribution width (RBC) [Ratio]12.8 %(11.8-14.4)[place], KYCommunising memorial hospital on above:Note: Responsible Observer: XNV AUTOFILE (3018)MCHC (RBC) [Mass/Vol]33.2 g/dL(28.4-34.8)[place], KYCommunising memorial hospital on above:Note: Responsible Observer: XNV AUTOFILE (3018)Platelet mean volume (Bld) [Entitic vol]10.3 fL(8.1-13.5)[place], KYComment on above:Note: Responsible Observer: XNV AUTOFILE (3018)(cont.)See [facility] Work Phone: Comment on above:Note: Average GFR for 30-39 years old:107 mL/min/1.73sq mChronic Kidney Disease:<60 mL/min/1.73sq mKidney failure:<15 mL/min/1.73sq meGFR calculated using average adult body mass. Additional eGFR calculatoravailable at:http://www.Urgent.ly.[employer]/multiple_crcl_2012.htmResponsible Observer: EMETERIO PENALOZA (9459)A2 Macroglob, Xbpnp569 mg/dL(131-293)[facility] Work Phone: Comment on above:Note: Responsible Observer: LAB [facility] (06)Albumin/Glob Ratio1.9(1.0-2.5)[facility] Work Phone: Comment on above:Note: Responsible Observer: EMETERIO PENALOZA (7191)Alkaline Phos63 U/L(40-129)[facility] Work Phone: Comment on above:Note: Responsible Observer: EMETERIO PENALOZA (9720)ALT, Fibro58 U/LHigh(5-50)[facility] Work Phone: Comment on above:Note: Responsible Observer: VALENTIN MODI (06)Amphetamine<20 ng/mLFall River Emergency Hospital Work Phone: Comment on above:Note: (NOTE)INTERPRETIVE [...] determined by [facility]. See Compliance Statement B: [employer].com/CSResponsible Observer: [facility] (0603)Amphetamines, S/PPositive(Cutoff 20)[facility] Work Phone: Comment on above:Note: (NOTE)If the screen is positive, then confirmation by mass spectrometrywill be added. Additional charges will apply.Unconfirmed positive may be useful for medical purposes, but doesnot meet forensic standards.Responsible Observer: [facility] (0603)AST, Fibro 38 U/L(9-50)[facility] Work Phone: Comment on above:Note: Responsible Observer: [facility] (0603)Barbiturates, S/PNegative(Cutoff 50)[facility] Work Phone: Comment on above:Note: Responsible Observer: [facility] (0603)Benzodiazepines, S/PNegative(Cutoff 50)[facility] Work Phone: Comment on above:Note: Responsible Observer: [facility] (0603)Buprenorphine, S/PNegative(Cutoff 1)[facility] Work Phone: Comment on above:Note: Responsible Observer: [facility] (0603)Cannabinoids, S/P62 ng/mLFall [facility] Work Phone: Comment on above:Note: (NOTE)INTERPRETIVE INFORMATION: THC Metabolite, Serum orPlasma, QuantitativeMethodology: Quantitative Liquid Chromatography-Tandem MassSpectrometry.Positive cutoff: 5 ng/mLFor medical purposes only; not valid for forensic use.The drug analyte detected in this assay, 9-carboxy THC, is ametabolite of nrrzr-6-iokjwtgicwvobjmgekys (THC). Detection of9-carboxy THC suggests use of, or exposure to, a productcontaining THC. This test cannot distinguish between prescribedor non-prescribed forms of THC, nor can it distinguish betweenactive or passive use. The plasma half-life for 9-carboxy THCmetabolite is estimated to range from 4-12 hours.Test developed and characteristics determined by [employer] Communicationsoratorlittle [facility]. See Compliance Statement B: [employer].com/CSPerformed By: [facility] [place] [id number] Director: Terese Muniz MDResponsible Observer: VALENTIN MODI (0603)Cholesterol,HDL55 mg/dL(>40)[facility] Work Phone: Comment on above:Note: HDL Guidelines:<40 Fbyqelmpovz46-94 Borderline>59 DesirableResponsible Observer: EMETERIO PENALOZA (7362)Cholesterol,LDL79 mg/dL(0-130)[facility] Work Phone: Comment on above:Note: LDL Guidelines:<100 Aatnhbxdw240-843 Near to/above Mkkznwkhq207-089 Borderline>159 UndesirableDirect (measured) LDL and calculated LDL are not interchangeable tests.Responsible Observer: EMETERIO PENALOZA (1682)Cholesterol,VLDLNOT REPORTED mg/dL(1-30)[facility] Work Phone: Cholesterol.total/Cholesterol in HDL [Mass ratio]3.5 {ratio}(<5)[facility] Work Phone: Comment on above:Note: Responsible Observer: EMETERIO PENALOZA (3048)CirrhM Patient Grcno5RrxjuiFall River Emergency Hospital Work Phone: Comment on above:Note: Responsible Observer: VALENTIN MODI (0603)Cocaine, Serum/PlasNegative(Cutoff 20)[facility] Work Phone: Comment on above:Note: Responsible Observer: VALENTIN MODI (0603)CommentSee NoteFall River Emergency Hospital Work Phone: Comment on above:Note: (NOTE)INTERPRETIVE [...] forensic use.Test developed and characteristics determined by [employer]. See Compliance Statement B: [employer]/CSPerformed By: [facility] [place] [address] [id number] Director: Terese Muniz MDResponsible Observer: [facility] (602)EER Fibro RptSee NoteHealth SalesGossip Butler Hospital Work Phone: Comment on above:Note: (NOTE)Access [facility] Enhanced Report using either link below:-Direct access: [email or web address] Username, Password: [email or web address]: [email or web address]: [email or web address] Observer: LAB [facility] (602)Fibro InterpretationSee ReportHealth SalesG[facility] Hospital Work Phone: Comment on above:Note: (NOTE)[17][16]INTERPRETIVE INFORMATION: Fibrometer InterpretationCalculations for the final report are based on accurate data forage, gender, and platelet count. If any of this information needsto be corrected, please contact [facility] Client Services to request arecalculation. Client Services [...] different instrument/reagent combinations.Test developedand characteristics determined by [facility]. SeeCompliance Statement B: [employer]/CSPerformed By: [facility] [place] [address] [id number] Director: Terese Muniz MDResponsible Observer: VALENTIN MODI (602)Fibro Metavir ClassSEE NOTEFall River Emergency Hospital Work Phone: Comment on above:Note: (NOTE)Results [...] but F3 is possibleResponsible Observer: VALENTIN MODI (602)FibroM Patient Score0.19[facility] Work Phone: Comment on above:Note: Responsible Observer: VALENTIN MODI (602)GFR, Amer>60 mL/min(>60)[facility] Work Phone: Comment on above:Note: Responsible Observer: EMETERIO PENALOZA (5031)GFR,non Amer>60 mL/min(>60)[facility] Work Phone: Comment on above:Note: Responsible Observer: EMETERIO PENALOZA (9339)GGT, Fibro26 U/L(7-51)[facility] Work Phone: Comment on above:Note: Responsible Observer: LAB [facility] (06)HCV Genotype, HZI7hKfnkcr [facility] Work Phone: Comment on above:Note: (NOTE)INTERPRETIVE INFORMATION: Hepatitis C GenotypingHepatitis C Viral RNA is tested using reverse transcriptionpolymerase chain reaction (RT-PCR) to amplify a specific portionof the 5' untranslated region (5' UTR) of the viral genome. Theamplified nucleic acid is sequenced bi-directionally usingdye-terminator chemistry ([employer]). Sequencing data is compared to adatabase of [...] Type 1.Test developed and characteristics determined by [facility]. See Compliance Statement B: [employer].com/CSPerformed By: [facility] [place] [address] [id number] Director: Terese Muniz MDResponsible Observer: LAB [facility] (06)HCV RNA,Quant,PCRSee NoteFall River Emergency Hospital Work Phone: Comment on above:Note: Specimen Description .PLASMASpecial Requests NOT REPORTEDDirect Exam HCV RNA DETECTED [id number]/ML (6.94 LOG IU/ML) This test is a [...] DepartmentReport Status FINAL 05/19/2020Responsible Observer: OSITO ARNOLD (5898)Hep B Surf Ab<3.50 mIU/mL(<10)[facility] Work Phone: Comment on above:Note: REFERENCE RANGE:<10.0 NON- REACTIVE/NOT IMMUNE>=10.0 REACTIVE/IMMUNEResponsible Observer: DIANA [facility]OFILE (3629)InflaM Metavir ClassA1/F4BgssuuFall River Emergency Hospital Work Phone: Comment on above:Note: (NOTE)INTERPRETIVE INFORMATION: InflaMeter Metavir ClassificationInflaMeter (activity score) commentsA0/A1 Equal probability between A0 and A1A1/A2 Equal probability between A1 and A2A2/A3 Equal probability between A2 and S5Dtsncafgjva Observer: LAB [facility] (06)InflaM Patient Score0.28[facility] Work Phone: Comment on above:Note: Responsible Observer: LAB [facility] (06)M.dioxyamphetamine<20 ng/mLFall River Emergency Hospital Work Phone: Comment on above:Note: Responsible Observer: LAB [facility] (06)M.dioxyethylamphet<20 ng/mLFall River Emergency Hospital Work Phone: Comment on above:Note: (NOTE)Performed By: [facility] [place] [address] [id number] Director: DAMON Leeesponsible Observer: LAB [facility] (06)M.dioxymethylamphet<20 ng/mL [facility] Work Phone: Comment on above:Note: Responsible Observer: LAB [facility] (0603)Methadone, S/PNegative(Cutoff 25)[facility] Work Phone: Comment on above:Note: Responsible Observer: [facility] (0603)Mbsxhdqzcconwnx904 ng/mLFall River Emergency Hospital Work Phone: Comment on above:Note: (NOTE)Consistent with use of a drug containing methamphetamine.Methamphetamine is metabolizedto amphetamine. Amphetamine andmethamphetamine exist in d- and l-isomeric forms. These forms arenotdistinguished by this test. Isomeric separation is availableseparately for an additional charge.Responsible Observer: [facility] (0603)Methamphetamine,S/P Positive(Cutoff 20)[facility] Work Phone: Comment on above:Note: (NOTE)If the screen is positive, then confirmation by mass spectrometrywill be added. Additional charges will apply.Unconfirmed positive may be useful for medical purposes, but doesnot meet forensic standards.Responsible Observer: [facility] (0603)Opiates, Serum/PlasNegative(Cutoff 20)[facility] Work Phone: Comment on above:Note: Responsible Observer: [facility] (0603)Oxycodone, S/PNegative(Cutoff 20)[facility] Work Phone: Comment on above:Note: Responsible Observer: LAB [facility] (0603)Performing Lab:see noteFall River Emergency Hospital Work Phone: Comment on above:Note: [facility] CenterRaff[facility] [address] [facility] [address] Note: [facility] [address] [facility] [address] Bqck: [facility] [address] [facility] [address] [facility] [address] [facility] [address] Phencyclidine, S/PNegative(Cutoff 10)[facility] Work Phone: Comment on above:Note: Responsible Observer: [facility] (0603)Prothrombin Hnjvx355 %(90-120)[facility] Work Phone: Comment on above:Note: Responsible Observer: LAB [facility] (0607)Reported PhysiciansSee NoteFall River Emergency Hospital Work Phone: Comment on above:Note: Reported Physicians:Ordering: Escobar GomezAttending: Jason, NeliieReferring: JasonNeliieTHC, Serum/Plasma Positive(Cutoff 20)[facility] Work Phone: Comment on above:Note: (NOTE)If the screen is positive, then confirmation by mass spectrometrywill be added. Additional charges will apply.Unconfirmed positive may be useful for medical purposes, but doesnot meet forensic standards.Responsible Observer: VALENTIN MODI (3124)Thyroid Stim. Horm.0.93 mIU/L(0.30-5.00)[facility] Work Phone: Comment on above:Note: Responsible Observer: EMETERIO PENALOZA (9663)Triglyceride,Arprzyx722 mg/dLHigh(<150)[facility] Work Phone: Comment on above:Note: Triglyceride Guidelines:<150 Xawjkxboo685-336 Nwengsnzib898-599 High>499 Very highBasedon AHA Guidelines for fasting triglyceride, May 2012.Responsible Observer: EMETERIO PENALOZA (5957) PTon 13-24-7309CTJ Coag (PPP) [Relative time]1.0 {INR}NormalMercy Woodland Memorial HospitalComment on above:Result Comment: Therapeutic Range: Moderate Anticoagulant Intensity: INR = 2.0-3.0 High Anticoagulant Intensity: INR = 2.5-3.5Performed By: #### CDP, CP, LIPR, TSHX, TREP, HIVCMB, HSVPR #### [facility] [address] [place] [address] Guide Escort: Satya Valdez MD #### DREAGEN #### [facility] [address] [place] [address] Guide Escort: Remi Harman, MDPT Coag (PPP) [Time]10.2 sNormal9.0-12.0[facility] Hospitalcy Woodland Memorial HospitalComment on above:Performed By: #### CDP, CP, LIPR, TSHX, TREP, HIVCMB, HSVPR #### [facility] [address] [place] [address] Guide Escort: Satya Valdez MD #### IshmaelGEN #### [facility] [address] [place] [address] Guide Escort: Remi Harman, MDCT ABDOMEN PELVIS W IV CONTRAST Additional Contrast? Oralon . No acute intra-abdominal abnormality. 2. No acute intrapelvic abnormality.CosmEthicsPEDROEXAMINATION: CT OF THE ABDOMEN AND PELVIS WITH [...] Bones/Soft Tissues: No acute bony abnormalities are noted.CosmEthicsHannah, Fidencio Incoming Radiant Results From [employer] - 01/22/2020 5:08 PM EDT EXAMINATION: CT [...] intra-abdominal abnormality. 2. No acute intrapelvic abnormality. [facility], KYHCV Genotype, PCRon [id number] Genotype, SEB5tZnhkxsVtzeoUniversity Hospitals Geneva Medical CenterComment on above:Result Comment: (NOTE) INTERPRETIVE INFORMATION: Hepatitis C Genotyping Hepatitis C Viral RNA is tested using reverse bit shaver polymerase chain reaction (RT-PCR) to amplify a specific portion of the 5' untranslated region (5' UTR) of the viral genome. The amplified nucleic acid is sequenced bi-directionally using dye-terminator chemistry ([employer]). Sequencing data is compared to a database [...] 1. Test developed and characteristics determined by [facility]. See Compliance Statement B: [employer]/CS Performed by [facility], [address] [place] [id number] [email or web address], Remi Harman MD, Lab. DirectorPerformed By: #### CDP, CP, LIPR, TSHX, TREP, HIVCMB, HSVPR #### [facility] [address] [place] [id number] Guide Escort: Satya Valdez MD #### AHCGEN #### [facility] [address] [place], [place] [id number] Guide Escort: Remi Harman MDHCV RNA,Quant,PCRon [id number] RNA,Quant,PCR Specimen Description .PLASMA Special Requests NOT REPORTED Direct Exam HCV RNA DETECTED [id number] IU/ML (6.49 LOG IU/ML) This test is [...] the appropriate Health Department Report Status FINAL 05/29/2019NormalMerRiverside Community HospitalComment on above:Performed By: #### CDP, CP, LIPR, TSHX, TREP, HIVCMB, HSVPR #### [facility] [address] [place] [address] [id number] Guide Escort: Satya Valdez MD #### NEGIN #### [facility] [address] [place] [address] Guide Escort: Remi Harman MDHerpes Profileon 13-27-5834Pemnoj Type I, IgG6.81 High<0.91[facility] Medical CenterComment on above:Result Comment: Reference Range: <=0.90 Negative 0.91-1.09 Equivocal >=1.10 PositivePerformed By: #### CDP, CP, LIPR, TSHX, TREP, HIVCMB, HSVPR #### [facility] [address] [place] [id number] Guide Escort: Satya Valdez MD #### AHCGEN #### [facility] [address] [place], [place] [id number] Guide Escort: Carole Meléndez Type I/II,IgM1.05High<0.91[facility] Medical CenterComment on above:Result Comment: Reference Range: [...] TSHX, TREP, HIVCMB, HSVPR #### [facility] [address] [place] [address] Guide Escort: Satya Valdez MD #### CLEVELANDGEN #### [facility] [address] [place] [id number] Guide Escort: Carole Meléndez Type II, IgG0.76Normal<0.91[facility] Medical CenterComment on above:Result Comment: Reference Range: <=0.90 Negative 0.91-1.09 Equivocal >=1.10 PositivePerformed By: #### CDP, CP, LIPR, TSHX, TREP, HIVCMB, HSVPR #### [facility] [address] [place] [address] Guide Escort: Satya Valdez MD #### [facility] #### [facility] Laboratories [address] [place] [address] [id number] Guide Escort: Remi Harman [facility] with Diffon [id number]. Basophil0.05 k/uL Normal0.00-0.20[facility]ull [facility] Medical CenterComment on above:Performed By: #### CDP, CP, LIPR, TSHX, TREP, HIVCMB, HSVPR #### [facility] [address] [place] [address] Guide Escort: Satya Valdez MD #### AHCGEN #### [facility] [address], [place] [id number] Guide Escort: Alvarado Meléndez.Imm.Granulocyte<0.11Dlbkjp8.00-0.30Tr[facility]ull Regional Medical CenterComment on above:Performed By: #### CDP, CP, LIPR, TSHX, TREP, HIVCMB, HSVPR #### [facility] [address] [place] [address] Guide Escort: Satya Valdez MD #### CGEN #### [facility] [address] [place] [address] Guide Escort: Alvarado Meléndez.Neutrophil (Seg)3.47 k/uLNormal1.50-8.10Tr[facility] Medical CenterComment on above:Performed By: #### CDP, CP, LIPR, TSHX, TREP, HIVCMB, HSVPR #### [place] [address] Guide Escort: Satya Valdez MD #### CLEVELANDCGEN #### [facility] [address] [place] [address] Guide Escort: Remi Harman MDBasophils/100 WBC (Bld)1 %Normal0-2[facility] HospitalComment on above:Performed By: #### CDP, CP, LIPR, TSHX, TREP, HIVCMB, HSVPR #### [place] [address] Guide Escort: Satya Valdez MD #### AHCGEN #### [facility] [address] [place] [address] Guide Escort: Remi Harman MDEosinophils (Bld) [#/Vol]0.25 10*3/uLNormal 0.00-0.44[facility] Medical CenterComment on above:Performed By: #### CDP, CP, LIPR, TSHX, TREP, HIVCMB, HSVPR #### [facility] [address] [place] [address] Guide Escort: Satya Valdez MD #### AHCGEN #### [facility] [address], [place] [id number] Guide Escort: Remi Harman MDEosinophils/100 WBC (Bld)4 %Normal1-4[facility] Medical CenterComment on above:Performed By: #### CDP, CP, LIPR, TSHX, TREP, HIVCMB, HSVPR #### [facility] [address] [place] [address] Guide Escort: Satya Valdez MD #### AHCGEN #### [address] [id number] Guide Escort: Remi Harman MDErythrocyte distribution width (RBC) [Ratio]12.4 %Xgndir76.8-14.4Tr[facility] Medical CenterComment on above:Performed By: #### CDP, CP, LIPR, TSHX, TREP, HIVCMB, HSVPR #### [address] [address] Guide Escort: Satya Valdez MD #### AHCGEN #### [facility] [address] [place] [address] [phone] Guide Escort: Remi Harman MDHematocrit (Bld) [Volume fraction]48.5 %Normal 40.7-50.3[facility] HospitalComment on above:Performed By: #### CDP, CP, LIPR, TSHX, TREP, HIVCMB, HSVPR #### [address] [address] Guide Escort: Satya Valdez MD #### AHCGEN #### [facility] [address], [place] [id number] Guide Escort: Remi Harman MDHemoglobin (Bld) [Mass/Vol]16.0 g/dLNormal 13.0-17.0[facility] Medical CenterComment on above:Performed By: #### CDP, CP, LIPR, TSHX, TREP, HIVCMB, HSVPR #### [facility] [address] [place] [address] Guide Escort: Satya Valdez MD #### AHCGEN #### [facility] [address] [place] [address] Guide Escort: Remi Harman MDImmature granulocytes (Bld) [#/Vol]0 %Normal0 [facility] Medical CenterComment on above:Performed By: #### CDP, CP, LIPR, TSHX, TREP, HIVCMB, HSVPR #### [place] [address] Guide Escort: Satya Valdez MD #### CGEN #### [address] [address] Guide Escort: Remi Harman MDLymphocytes (Bld) [#/Vol]2.73 10*3/uLNormal 1.10-3.70[facility] Medical CenterComment on above:Performed By: #### CDP, CP, LIPR, TSHX, TREP, HIVCMB, HSVPR #### [address] [address] Guide Escort: Satya Valdez MD #### AHCGEN #### [facility] [address] [place] [address] Guide Escort: Remi Harman MDLymphocytes/100 WBC (Bld)38 %Vdabla74-66UpmulTrumbull Regional Medical CenterComment on above:Performed By: #### CDP, CP, LIPR, TSHX, TREP, HIVCMB, HSVPR #### [address] [address] Guide Escort: Satya Valdez MD #### AHCGEN #### [facility] [address], [place] [id number] Guide Escort: MESSI MeléndezCH (RBC) [Entitic mass]30.5 vdDftoqu73.2-33.5 [facility] Medical CenterComment on above:Performed By: #### CDP, CP, LIPR, TSHX, TREP, HIVCMB, HSVPR #### [facility] [address] [place] [address] Guide Escort: Satya Valdez MD #### AHCGEN #### [facility] [address], [place] [id number] Guide Escort: MELI MeléndezC (RBC) [Mass/Vol]33.0 g/dPNvhxkp99.4-34.8 [facility] CenterComment on above:Performed By: #### CDP, CP, LIPR, TSHX, TREP, HIVCMB, HSVPR #### [address] [address] Guide Escort: Satya Valdez MD #### AHCGEN #### [facility] [address] [place] [address] Guide Escort: MESSI MeléndezCV (RBC) [Entitic vol]92.4 eLTbnvmq96.6-102.9 [facility] Medical CenterComment on above:Performed By: #### CDP, CP, LIPR, TSHX, TREP, HIVCMB, HSVPR #### [facility] [address] [place] [address] Guide Escort: Satya Valdez MD #### AHCGEN #### [facility] [address] [place] [address] Guide Escort: MESSI Meléndezonocytes (Bld) [#/Vol]0.61 10*3/uLNormal 0.10-1.20[facility] Medical CenterComment on above:Performed By: #### CDP, CP, LIPR, TSHX, TREP, HIVCMB, HSVPR #### [facility] [address] [place] [address] Guide Escort: Satya Valdez MD #### AHCGEN #### [facility] [address] [place] [address] Guide Escort: MESSI Meléndezonocytes/100 WBC (Bld)9 %Normal3-12[facility] Medical CenterComment on above:Performed By: #### CDP, CP, LIPR, TSHX, TREP, HIVCMB, HSVPR #### [address] [address] Guide Escort: Satya Valdez MD #### CGEN #### [address] [address] Guide Escort: Remi Harman MDNeutrophil (Seg)48 %Xhlifu20-82JnmswTrumbull Regional Medical CenterComment on above:Performed By: #### CDP, CP, LIPR, TSHX, TREP, HIVCMB, HSVPR #### [address] [address] Guide Escort: Satya Valdez MD #### CGEN #### [facility] [address] [place] [address] Guide Escort: Remi Harman MDNRBC Automated0.0 per 100 WBCNormal0.0[facility] Medical CenterComment on above:Performed By: #### CDP, CP, LIPR, TSHX, TREP, HIVCMB, HSVPR #### [facility] [address] [place] [address] Guide Escort: Satya Valdez MD #### AHCGEN #### [facility] [address] [place] [address] Guide Escort: Robbie Meléndez mean volume (Bld) [Entitic vol]9.9 fL Normal8.1-13.5Tr[facility] Regional Medical CenterComment on above:Performed By: #### CDP, CP, LIPR, TSHX, TREP, HIVCMB, HSVPR #### [facility] [address] [place] [address] Guide Escort: Satya Valdez MD #### CLEVELANDCGEN #### [facility] [address] [place] [address] Guide Escort: Ariana Meléndez (Bld) [#/Vol]370 10*3/lJTkmwwn788-657 [facility] Medical CenterComment on above:Performed By: #### CDP, CP, LIPR, TSHX, TREP, HIVCMB, HSVPR #### [facility] [address] [place] [address] Guide Escort: Satya Valdez MD #### CLEVELANDCGEN #### [facility] [address] [place] [address] Guide Escort: DAMON Meléndez (Bld) [#/Vol]5.25 10*6/uLNormal4.21-5.77Tr[facility] Medical CenterComment on above:Performed By: #### CDP, CP, LIPR, TSHX, TREP, HIVCMB, HSVPR #### [facility] [address] [place] [address] Guide Escort: Satya Valdez MD #### AHCGEN #### [facility] [address] [place] [address] Guide Escort: Remi Harman [facility]DBELLEV[facility] (Bld) [#/Vol]7.1 10*3/uLNormal3.5-11.3MKaiser Foundation HospitalComment on above:Performed By: #### CDP, CP, LIPR, TSHX, TREP, HIVCMB, HSVPR #### [facility] [address] [place] [address] Guide Escort: Satya Valdez MD #### AHCGEN #### [facility] [address] [place] [address] Guide Escort: Memo Meléndez PerformedNOT REPORTEDNormMercy Health Willard HospitalComment on above:Performed By: #### CDP, CP, LIPR, TSHX, TREP, HIVCMB, HSVPR #### [facility] [address] [place] [address] Guide Escort: Satya Valdez MD #### AHCGEN #### [facility] [address] [place] [address] Guide Escort: Ariana Meléndez (Bld) [#/Vol]NOT REPORTEDMercy Health Urbana HospitalComment on above:Performed By: #### CDP, CP, LIPR, TSHX, TREP, HIVCMB, HSVPR #### [facility] [address] [place] [address] Guide Escort: Satya Valdez MD #### AHCGEN #### [facility] [address] [place] [address] Guide Escort: GALINA Meléndez morphology finding Nom (Bld)NOT REPORTED [facility] Urbana HospitalComment on above:Performed By: #### CDP, CP, LIPR, TSHX, TREP, HIVCMB, HSVPR #### [facility] [address] [place] [address] Guide Escort: Satya Valdez MD #### AHCGEN #### [facility] [address] [place] [address] Guide Escort: Remi Harman MDWSUE MorphologyNOT REPORTEDNoalTrumbull Regional Medical CenterComment on above:Performed By: #### CDP, CP, LIPR, TSHX, TREP, HIVCMB, HSVPR #### [facility] [address] [place] [address] [phone] Guide Escort: Satya Valdez MD #### AHCGEN #### [address] [address] Guide Escort: RENNY Meléndezhlamydia/GC DNA, Uron [id number] Probe, UrNegativeTriHealth McCullough-Hyde Memorial HospitalComment on above:Result Comment: CHLAMYDIA TRACHOMATIS DNA [...] acid target.Performed By: #### UCGP, TRCMOL #### [address] [id number] Guide Escort: Satya Valdez MDGoericrrhea Probe, UrNegativeTriHealth McCullough-Hyde Memorial HospitalComment on above:Result Comment: NEISSERIA GONORRHOEAE DNA [...] acid target.Performed By: #### UCGP, TRCMOL #### [facility] [address] [place] [address] [phone] Guide Escort: RENNY Dinhomp Metabolic Profon 05-27-2019(cont.)Normal [facility] Medical CenterComment on above:Result Comment: Average GFR for 30-39 years old: 107 mL/min/1.73sq m Chronic Kidney Disease: <60 mL/min/1.73sq m Kidney failure: <15 mL/min/1.73sq m eGFR calculated using average adult body mass. Additional eGFR calculator available at: http://www.Arimaz/multiple_crcl_2012.htmPerformed By: #### CDP, CP, LIPR, TSHX, TREP, HIVCMB, HSVPR #### [facility] [address] [place] [address] Guide Escort: Satya Valdez MD #### NEGIN #### [facility] [address] [place] [address] [phone] Guide Escort: Remi Harman MDAlbumin [Mass/Vol]4.4 g/dLNormal3.5-5.2MKaiser Foundation HospitalComment on above:Performed By: #### CDP, CP, LIPR, TSHX, TREP, HIVCMB, HSVPR #### [address] [address] Guide Escort: Satya Valdez MD #### NEGIN #### [facility] [address] [place] [address] [phone] Guide Escort: Remi Harman MDAlbumin/Globulin [Mass ratio]1.5 {ratio}Normal 1.0-2.5[facility] Medical CenterComment on above:Performed By: #### CDP, CP, LIPR, TSHX, TREP, HIVCMB, HSVPR #### [facility] [address] [place] [address] [phone] Guide Escort: Satya Valdez MD #### AHIshmaelGEN #### [facility] [address] [place] [address] Guide Escort: Diego Meléndezline Phos71 U/ZKpyzfj84-355GwiofTrumbull Regional Medical CenterComment on above:Performed By: #### CDP, CP, LIPR, TSHX, TREP, HIVCMB, HSVPR #### [facility] [address] [place] [address] Guide Escort: Satya Valdez MD #### AHCGEN #### [facility] [address] [place] [address] Guide Escort: Remi Harman MDALT [Catalytic activity/Vol]43 U/LHigh5-41[facility] Medical CenterComment on above:Performed By: #### CDP, CP, LIPR, TSHX, TREP, HIVCMB, HSVPR #### [facility] [address] [place] [address] Guide Escort: Satya Valdez MD #### AHCGEN #### [facility] [address] [place] [address] Guide Escort: Rimma Meléndez gap [Moles/Vol]12 mmol/LNormal9-17[facility] Medical CenterComment on above:Performed By: #### CDP, CP, LIPR, TSHX, TREP, HIVCMB, HSVPR #### [facility] [address] [place] [address] Guide Escort: Satya Valdez MD #### AHCGEN #### [facility] [address] [place] [address] Guide Escort: Remi Harman MDAST [Catalytic activity/Vol]37 U/LNormal<40[facility] Medical CenterComment on above:Performed By: #### CDP, CP, LIPR, TSHX, TREP, HIVCMB, HSVPR #### [facility] [address] [place] [address] Guide Escort: Satya Valdez MD #### AHCGEN #### [facility] [address] [place] [address] Guide Escort: Remi Harman MDBilirubin Ql (U)0.38 mg/dLNormal0.3-1.2Mgreen cross hospitaly [facility] Memorial HospitalComment on above:Performed By: #### CDP, CP, LIPR, TSHX, TREP, HIVCMB, HSVPR #### [facility] [address] [place] [address] Guide Escort: Satya Valdez MD #### CGEN #### [facility] [address] [place] [address] Guide Escort: RENNY Meléndezalcium [Mass/Vol]9.7 mg/dLNormal8.6-10.4[facility] Medical CenterComment on above:Performed By: #### CDP, CP, LIPR, TSHX, TREP, HIVCMB, HSVPR #### [address] [address] Guide Escort: Satya Valdez MD #### CGEN #### [facility] [address] [place] [address] [phone] Guide Escort: RENNY Meléndezhloride [Moles/Vol]100 mmol/LUioqyx82-817ZpxamTrumbull Regional Medical CenterComment on above:Performed By: #### CDP, CP, LIPR, TSHX, TREP, HIVCMB, HSVPR #### [facility] [address] [place] [address] Guide Escort: Satya Valdez MD #### CGEN #### [facility] [address], [place] [id number] Guide Escort: RENNY MeléndezO2 [Moles/Vol]27 mmol/TDljoda43-44ZfkztTrumbull Regional Medical CenterComment on above:Performed By: #### CDP, CP, LIPR, TSHX, TREP, HIVCMB, HSVPR #### [facility] [address] [place] [address] Guide Escort: Satya Valdez MD #### AHCGEN #### [facility] [address] [place] [address] Guide Escort: RENNY Meléndezreatinine [Mass/Vol]1.28 mg/dLHigh0.70-1.20MerRiverside Community HospitalComment on above:Performed By: #### CDP, CP, LIPR, TSHX, TREP, HIVCMB, HSVPR #### [facility] [address] [place] [address] Guide Escort: Satya Valdez MD #### AHCGEN #### [facility] [address] [place] [address] [phone] Guide Escort: Remi Harman MDGFR, Amer>60Normal>60[facility] CenterComment on above:Performed By: #### CDP, CP, LIPR, TSHX, TREP, HIVCMB, HSVPR #### [address] [address] Guide Escort: Satya Valdez MD #### AHCGEN #### [address] [address] Guide Escort: Remi Harman MDGFR,non Amer>60Normal>60[facility] CenterComment on above:Performed By: #### CDP, CP, LIPR, TSHX, TREP, HIVCMB, HSVPR #### [address] [address] Guide Escort: Satya Valdez MD #### AHCGEN #### [facility] [address] [place] [address] Guide Escort: Remi Harman MDGlucose [Mass/Vol]77 mg/lRZtsojr88-64Rqxtv [facility] HospitalComment on above:Performed By: #### CDP, CP, LIPR, TSHX, TREP, HIVCMB, HSVPR #### [facility] [address] [place] [address] Guide Escort: Satya Valdez MD #### AHCGEN #### [facility] [address], [place] [id number] Guide Escort: MATTIE Meléndezotassium [Moles/Vol]3.9 mmol/LNormal3.7-5.3MKaiser Foundation HospitalComment on above:Performed By: #### CDP, CP, LIPR, TSHX, TREP, HIVCMB, HSVPR #### [facility] [address] [place] [address] Guide Escort: Satya Valdez MD #### AHCGEN #### [facility] [address], [place] [id number] Guide Escort: MATTIE Meléndezrotein [Mass/Vol]7.3 g/dLNormal6.4-8.3MKaiser Foundation HospitalComment on above:Performed By: #### CDP, CP, LIPR, TSHX, TREP, HIVCMB, HSVPR #### [facility] [address] [place] [address] Guide Escort: Satya Valdez MD #### AHCGEN #### [facility] [address], [place] [id number] Guide Escort: Remi Harman MDSodium [Moles/Vol]139 mmol/SUafpbv442-181KhvkcRiverside Community HospitalComment on above:Performed By: #### CDP, CP, LIPR, TSHX, TREP, HIVCMB, HSVPR #### [facility] [address] [place] [address] Guide Escort: Satya Valdez MD #### AHCGEN #### [facility] [address], [place] [id number] Guide Escort: Remi Harman MDUrea nitrogen [Mass/Vol]9 mg/dLNormal6-20[facility] CenterComment on above:Performed By: #### CDP, CP, LIPR, TSHX, TREP, HIVCMB, HSVPR #### [facility] [address] [place] [address] Guide Escort: Satya Valdez MD #### AHCGEN #### [facility] [address], [place] [id number] Guide Escort: BARBARA Meléndez/CRE MelodyOT REPORTEDNormal9-20[facility] CenterComment on above:Performed By: #### CDP, CP, LIPR, TSHX, TREP, HIVCMB, HSVPR #### [facility] [address] [place] [address] Guide Escort: Satya Valdez MD #### AHCGEN #### [facility] [address] [place] [address] [phone] Guide Escort: BRYNN Meléndeztaging:NOT REPORTEDNormalTrumbull Regional Medical CenterComment on above:Performed By: #### CDP, CP, LIPR, TSHX, TREP, HIVCMB, HSVPR #### [facility] [address] [place] [address] [id number] Guide Escort: Satya Valdez MD #### AHCGEN #### [facility] [address], [place] [id number] Guide Escort: Remi Harman [facility] MIDWE[facility] CITYomprehensive Metabolic Panelon [id number] [Mass/Vol]4.4 g/dL3.5 - 5.2 g/dLSelect Medical Specialty [facility] - [place], KYAlbumin/Globulin [Mass ratio]1.5 {ratio}[facility] [place], KYALP [Catalytic activity/Vol]71 U/L40 - 129 U/[facility], KYALT [Catalytic activity/Vol]43 U/LHigh5 - 41 U/LMercy Health- [place], KYAnion gap [Moles/Vol]12 mmol/L9 - 17 mmol/LMSalem City Hospital- [place], KYAST [Catalytic activity/Vol]37 U/L<40[facility]- [place], KYBilirubin Ql (U)0.38 mg/dL 0.3 - 1.2 mg/dLAdena Pike Medical Center- [place], KYBun/Cre RatioNOT REPORTEDAdena Pike Medical [facility]- [place], [place] Calcium [Mass/Vol]9.7 mg/dL8.6 - 10.4 mg/dLTrumbull Regional Medical Center [place], KYChloride [Moles/Vol]100 mmol/L98 - 107 mmol/[facility]- [place], KYCO2 [Moles/Vol]27 mmol/L 20 - 31 mmol/[facility]- [place], KYCreatinine [Mass/Vol]1.28 mg/dLHigh0.7 - 1.2 mg/dLSelect [facility] Specialty [facility] [place], KYGFR >60>60 mL/minSelect Medical Specialty Hospital - [place], [place] GFR Non->60>60 mL/minSelect Medical Specialty Hospital - [place], KYGFR/1.73 sq M predicted among non-blacks MDRD (S/P/Bld) [Vol rate/Area]NOT REPORTEDSelect Medical Specialty [facility] [place], [place] GFR/1.73 sq M predicted among non-blacks MDRD (S/P/Bld) [Vol rate/Area][facility] [place], KYComment on above:Average GFR for 30-39 years old: 107 mL/min/1.73sq m Chronic Kidney Disease: <60 mL/min/1.73sq m Kidney failure: <15 mL/min/1.73sq m eGFR calculated using average adult body mass. Additional eGFR calculator available at: http://www.Urgent.ly.Totus Power/multiple_crcl_2012.htm Glucose [Mass/Vol]77 mg/dL70 - 99 mg/dLAdena Pike Medical Center- [place], KYPotassium [Moles/Vol] 3.9 mmol/L3.7 - 5.3 mmol/[facility]- [place], KYProtein [Mass/Vol]7.3 g/dL6.4 - 8.3 g/dLSelect [facility]ty [facility] [place], KYSodium [Moles/Vol]139 mmol/L135 - 144 mmol/LMProMedica Flower Hospital, KYUrea nitrogen [Mass/Vol]9 mg/dL6 - 20 mg/dLSelect Medical Specialty [facility] - [place], KYHCV Genotype, PCRon [id number] Viral LoadNOT REPORTEDNormalTrumbull Regional Medical CenterComment on above:Performed By: #### CDP, CP, LIPR, TSHX, TREP, HIVCMB, HSVPR #### [facility] [place], [place] [id number] Guide Escort: Satya Valdez MD #### AHCGEN #### [facility] [address], [place] [id number] Guide Escort: Remi Harman MDHIV Ag/Abon [id number] Ag/AbNONREACTIVENormal NRTrumbull Regional Medical CenterComment on above:Result Comment: No laboratory evidence of HIV infection. If acute HIV infection is suspected, consider testing for HIV-1 RNA.Performed By: #### CDP, CP, LIPR, TSHX, TREP, HIVCMB, HSVPR #### [facility] [address] [place] [address] [phone] Guide Escort: Satya Valdez MD #### AHCGEN #### [facility] [address] [place] [address] Guide Escort: Remi Harman MDLipid Panelon [id number] [Mass/Vol]233 mg/dLHigh<200[place], KYComment on above: Cholesterol Guidelines: <200 Desirable 200-240 Borderline >240 Undesirable Cholesterol in HDL [Mass/Vol]60 mg/dL>40[place], KYComment on above: HDL Guidelines: <40 Undesirable 40-59 Borderline >59 Desirable Cholesterol in LDL [Mass/Vol]145 mg/dLHigh0 - 130 mg/dLHad[place], [place] Comment on above: LDL Guidelines: <100 Desirable 100-129 Near to/above Desirable 130-159 Borderline >159 Undesirable Direct (measured) LDL and calculated LDL are not interchangeable tests. Cholesterol in VLDL [Mass/Vol]NOT REPORTED1 - 30 mg/dLHad[place], [place] Cholesterol.total/Cholesterol in HDL [Mass ratio]3.9 {ratio}<5[place], KYTriglyceride [Mass/Vol]138 mg/dL<150[place], KYComment on above: Triglyceride Guidelines: <150 Desirable 150-199 Borderline 200-499 High >499 Very high Based on AHA Guidelines for fasting triglyceride, May 2012. Lipid Profileon [id number] [Mass/Vol]233 mg/dLHigh<200[facility] Medical CenterComment on above:Result Comment: Cholesterol Guidelines: <200 Desirable 200-240 Borderline >240 UndesirablePerformed By: #### CDP, CP, LIPR, TSHX, TREP, HIVCMB, HSVPR #### [facility] [address] [place] [address] Guide Escort: Satya Valdez MD #### CGEN #### [facility] [address] [place] [address] Guide Escort: RENNY Meléndezholesterol in HDL [Mass/Vol]60 mg/dLNormal>40 [facility] CenterComment on above:Result Comment: HDL Guidelines: <40 Undesirable 40-59 Borderline >59 DesirablePerformed By: #### CDP, CP, LIPR, TSHX, TREP, HIVCMB, HSVPR #### [address] [phone] Guide Escort: Satya Valdez MD #### AHCGEN #### [facility] [address] [place] [address] Guide Escort: RENNY Meléndezholesterol in LDL [Mass/Vol]145 mg/dLHigh0-130 [facility] CenterComment on above:Result Comment: LDL Guidelines: <100 Desirable 100-129 Near to/above Desirable 130-159 Borderline >159 Undesirable Direct (measured) LDL and calculated LDL are not interchangeable tests.Performed By: #### CDP, CP, LIPR, TSHX, TREP, HIVCMB, HSVPR #### [facility] [address] [place] [address] Guide Escort: Satya Valdez MD #### AHCGEN #### [facility] [address] [place], [place] [id number] Guide Escort: RENNY Meléndezholestflorentino.total/Cholesterol in HDL [Mass ratio] 3.9 {ratio}Normal<5Mer[facility] Memorial HospitalComment on above:Performed By: #### CDP, CP, LIPR, TSHX, TREP, HIVCMB, HSVPR #### [facility] [address] [place] [address] Guide Escort: Satya Valdez MD #### AHCGEN #### [facility] [address] [place], [place] [id number] Guide Escort: Rmei Harman MDTriglyceride [Mass/Vol]138 mg/dLNormal<150MerRiverside Community HospitalComment on above:Result Comment: Triglyceride Guidelines: <150 Desirable 150-199 Borderline 200-499 High >499 Very high Based on AHA Guidelines for fasting triglyceride, May 2012.Performed By: #### CDP, CP, LIPR, TSHX, TREP, HIVCMB, HSVPR #### [facility] [address] [place] [address] Guide Escort: Satya Valdez MD #### AHCGEN #### [facility] [address] [place], [place] [id number] Guide Escort: RENNY Meléndezholesterol in VLDL [Mass/Vol]NOT REPORTEDNormal 1-30[facility] HospitalComment on above:Performed By: #### CDP, CP, LIPR, TSHX, TREP, HIVCMB, HSVPR #### [facility] [address] [place] [address] Guide Escort: Satya Valdez MD #### AHCGEN #### [facility] [address] [place], [place] [id number] Guide Escort: Remi Harman MDOtheron [id number] and review of laboratory resultsAbnoBarnesville Hospital, KYT.pallidum Ab Screenon 05-27-2019 T.pallidum Ab ScreenNONREACTIVENoMercy Health Tiffin HospitalComment on above:Result Comment: T. pallidum antibodies are not detected. There is no serological evidence of infection with T. pallidum (early primary syphilis cannot be excluded). Retest in 2-4 weeks if syphilis is clinically suspect.Performed By: #### CDP, CP, LIPR, TSHX, TREP, HIVCMB, HSVPR #### [facility] [facility] [address] [place] [address] [id number] Guide Escort: Satya Valdez MD #### CGEN #### [facility] [address] [place] [address] Guide Escort: SHAKILA Meléndez w/reflex to FT4on [id number] Qn2.51 m[IU]/LNormal0.30-5.00Trumbull Regional Medical CenterComment on above:Performed By: #### CDP, CP, LIPR, TSHX, TREP, HIVCMB, HSVPR #### [facility] [address] [place] [address] [id number] Guide Escort: Satya Valdez MD #### CGEN #### [facility] [address] [place], [place] [id number] Guide Escort: HAILEE Meléndez with Reflexon [id number] Qn2.51 m[IU]/L [facility], KYTric Vag, Molecularon [id number] Vag, Molecular NegativeNormalNEGTrumbull Regional Medical CenterComment on above:Result Comment: T. vaginalis DNA not detected Results should be interpreted in conjunction with other clinical data. This test is intended for medical purposes only and is not valid for the evaluation of suspected sexual abuse or for other forensic purposes. This test has not been evaluated in women or in patients less than 16 years of age.Performed By: #### RAOUL NICHOLEOL #### [facility] [address] [place], [place] [id number] Guide Escort: Galileo Dinh:.URINENormalTrumbull Regional Medical CenterComment on above:Performed By: #### RAOUL NICHOLEOL #### [facility] [address] [place], [place] [id number] Guide Escort: Satya Valdez [facility] Auto Differentialon [id number] (Bld) [#/Vol]0.05 10*3/uLMercy Health- [place], KYBasophils/100 WBC (Bld)1 %0 - 2 % [facility] [place], KYDifferential TypeNOT REPORTEDMer Health- [place], KYEosinophils (Bld) [#/Vol]0.25 10*3/uLMercy Health- [place], KYEosinophils/100 WBC (Bld)4 %1 - 4 %[facility] [place], KYErythrocyte distribution width (RBC) [Ratio]12.4 %11.8 - 14.4 %[facility] [place], KYHematocrit (Bld) [Volume fraction]48.5 %40.7 - 50.3 % [facility] [place] KYHemoglobin (Bld) [Mass/Vol]16.0 g/dL13 - 17 g/dLMercy Health- [place], KYImmature granulocytes (Bld) [#/Vol]0 %0[facility] [place] [place] Immature granulocytes (Bld) [#/Vol]10*3/uLMercy Health- [place], KYLymphocytes (Bld) [#/Vol]2.73 10*3/uLMercy Health- [place], KYLymphocytes/100 WBC (Bld)38 %24 - 43 % [facility] [place], KYMCH (RBC) [Entitic mass]30.5 pg25.2 - 33.5 pgMercy Health- [place], KYMCHC (RBC) [Mass/Vol]33.0 g/dL28.4 - 34.8 g/dLSelect [facility] [place], KYMCV (RBC) [Entitic vol]92.4 fL82.6 - 102.9 fLSelect [facility] Specialty [facility] [place], KYMonocytes (Bld) [#/Vol]0.61 10*3/uLSelect [facility]ty [facility] [place], KYMonocytes/100 WBC (Bld)9 %3 - 12 %[facility], KYPlatelet mean volume (Bld) [Entitic vol]9.9 fL8.1 - 13.5 fLSelect Medical Specialty Hospital - [place], KYPlatelets (Bld) [#/Vol]NOT REPORTEDSelect [facility] [place], KYPlatelets (Bld) [#/Vol]370 10*3/uLSelect [facility]ty [facility] [place], KYRBC (Bld) [#/Vol]5.25 10*6/uL4.21 - 5.77 m/[facility], KYRBC morphology finding Nom (Bld)NOT REPORTEDSelect [facility] [place], ORSegmented neutrophils/100 WBC (Bld)48 %36 - 65 %[facility], KYSegs Absolute3.47[facility], KYWBC (Bld) [#/Vol]7.1 10*3/uLSelect [facility] Specialty [facility] [place], KYWBC (Bld) [#/Vol]0.0 10*3/uL0.0 per 100 WBCSelect Medical Specialty [facility] [place], KYWBC MorphologyNOT REPORTEDSelect [facility] [place], KYCardiacon [id number] [Mass/Vol]233 mg/dLHigh(<200)[facility] Work Phone: Comment on above:Note: Cholesterol Guidelines:<200 Amylevdsf489-121 Borderline>240 UndesirableResponsible Observer: DIANA AUTOFILE (3603)Triglyceride [Mass/Vol]138 mg/dL(<150)[facility] Work Phone: Comment on above:Note: Triglyceride Guidelines:<150 Qxexyghty017-688 Hiocuenyoh563-408 High>499 Very highBasedon AHA Guidelines for fasting triglyceride, May 2012.Responsible Observer: DIANA AUTOFILE (7686) Hematologyon [id number]/100 WBC (Bld)1 %(0-2)[facility] Work Phone: Comment on above:Note: Responsible Observer: XNV AUTOFILE (3018)Eosinophils (Bld) [#/Vol]0.25 10*3/uL(0.00-0.44)[facility] Work Phone: Comment on above:Note: Responsible Observer: XNV AUTOFILE (3018)Eosinophils/100 WBC (Bld)4 %(1-4)[facility] Work Phone: Comment on above:Note: Responsible Observer: XNV AUTOFILE (3018)Hematocrit (Bld) [Volume fraction]48.5 %(40.7-50.3)[facility] Work Phone: Comment on above:Note: Responsible Observer: XNV AUTOFILE (3018)Hemoglobin (Bld) [Mass/Vol]16.0 g/dL(13.0-17.0)[facility] Work Phone: Comment on above:Note: Responsible Observer: XNV AUTOFILE (3018)Lymphocytes (Bld) [#/Vol]2.73 10*3/uL(1.10-3.70)[facility] Work Phone: Comment on above:Note: Responsible Observer: XNV AUTOFILE (3018)Lymphocytes/100 WBC (Bld)38 %(24-43)[facility] Work Phone: Comment on above:Note: Responsible Observer: XNV AUTOFILE (3018)MCH (RBC) [Entitic mass]30.5 pg(25.2-33.5)[facility] Work Phone: Comruhq on above:Note: Responsible Observer: XNV AUTOFILE (3018)MCV (RBC) [Entitic vol]92.4 fL(82.6-102.9)[facility] Work Phone: Comment on above:Note: Responsible Observer: XNV AUTOFILE (3018)Monocytes (Bld) [#/Vol]0.61 10*3/uL(0.10-1.20)[facility] Work Phone: Comment on above:Note: Responsible Observer: XNV AUTOFILE (3018)Monocytes/100 WBC (Bld)9 %(3-12)[facility] Work Phone: Comment on above:Note: Responsible Observer: XNV AUTOFILE (3018)Platelets (Bld) [#/Vol]NOT REPORTEDHealth St. [facility] Work Phone: Platelets (Bld) [#/Vol]370 10*3/uL(138-453)[facility] Work Phone: Comment on above:Note: Responsible Observer: XNV AUTOFILE (3018)RBC (Bld) [#/Vol]5.25 10*6/uL(4.21-5.77)[facility] Work Phone: Comment on above:Note: Responsible Observer: XNV AUTOFILE (3018)RBC morphology finding Nom (Bld)NOT REPORTEDFall [facility] Hospital Work Phone: WBC (Bld) [#/Vol]0.0 per_100_WBC(0.0)[facility] Work Phone: Comment on above:Note: Responsible Observer: XNV AUTOFILE (3018)WBC (Bld) [#/Vol]7.1 10*3/uL(3.5-11.3)[facility] Work Phone: Comment on above:Note: Responsible Observer: XNV AUTOFILE (3018)Metabolic Panelon 01-36-1110Tvfdgul [Mass/Vol]4.4 g/dL(3.5-5.2) [facility] Work Phone: Comment on above:Note: Responsible Observer: CEEV AUTOFILE (3003)ALT [Catalytic activity/Vol]43 U/LHigh(5-41)[facility] Work Phone: Comment on above:Note: Responsible Observer: CEEV AUTOFILE (3003)Anion gap [Moles/Vol]12 mmol/L(9-17)[facility] Work Phone: Comment on above:Note: Responsible Observer: CEEV AUTOFILE (3003)AST [Catalytic activity/Vol]37 U/L(<40)[facility] Work Phone: Comment on above:Note: Responsible Observer: CEEV AUTOFILE (3003)Bilirubin [Mass/Vol]0.38 mg/dL(0.3-1.2)[facility] Work Phone: Comment on above:Note: Responsible Observer: CEEV AUTOFILE (3003)Calcium [Mass/Vol]9.7 mg/dL(8.6-10.4)[facility] Work Phone: Comment on above:Note: Responsible Observer: CEEV AUTOFILE (3003)Chloride [Moles/Vol]100 mmol/L(98-107)[facility] Work Phone: Comment on above:Note: Responsible Observer: CEEV AUTOFILE (3003)CO2 [Moles/Vol]27 mmol/L(20-31)[facility] Work Phone: Comment on above:Note: Responsible Observer: CEEV AUTOFILE (3003)Creatinine [Mass/Vol]1.28 mg/dLHigh(0.70-1.20)[facility] Work Phone: Comment on above:Note: Responsible Observer: CEEV AUTOFILE (3003)Glucose [Mass/Vol]77 mg/dL(70-99)[facility] Work Phone: Comment on above:Note: Responsible Observer: CEEV AUTOFILE (3003)Potassium [Moles/Vol]3.9 mmol/L(3.7-5.3)[facility] Work Phone: Comment on above:Note: Responsible Observer: CEEV AUTOFILE (3003)Protein [Mass/Vol]7.3 g/dL(6.4-8.3)[facility] Work Phone: Comment on above:Note: Responsible Observer: CEEV AUTOFILE (3003)Sodium [Moles/Vol]139 mmol/L(135-144)[facility] Work Phone: Comment on above:Note: Responsible Observer: MARIEV AUTOFILE (3003)Urea nitrogen [Mass/Vol]9 mg/dL(6-20)[facility] Work Phone: Comment on above:Note: Responsible Observer: DIANA AUTOFILE (3003)Otheron 68-62-8329Zldduyagp Probe, UrNegative(NEG)[facility] Work Phone: Comment on above:Note: CHLAMYDIA [...] results by an alternative nucleic acid target.ResponsibleObserver: CAFORTYEIG AUTOFILE (3030)Gonorrhea Probe, Ur Negative(NEG)[facility] Work Phone: Comment on above:Note: NEISSERIA [...] results by an alternative nucleic acid target.ResponsibleObserver: CAFORTYEIG AUTOFILE (2661)Performing Lab:see note [facility] Work Phone: Comment on above:Note: [facility] [employer] [address] [facility] [address] Reported PhysiciansSee NoteFall River Emergency Hospital Work Phone: Comment on above:Note: Reported Physicians:Ordering: JasonEscobarAttending: Jason, CassieReferring: Jason, CassieSource:.URINEHealth St. [facility] Work Phone: Comment on above:Note: Responsible Observer: ZAC OKEEFE ([id number])Trich Vag, MolecularNegative(NEG)[facility] Work Phone: Comment on above:Note: T. vaginalis DNA not detectedResults should be interpreted in conjunction with other clinical data.This test is intended for medical purposes only and is not valid for theevaluation of suspected sexual abuse or for other forensic purposes.This test has not been evaluated in women or in patients less than 16years of age.Responsible Observer: DANTE QURESHI (189)(cont.)See NoteFall River Emergency Hospital Work Phone: Comment on above:Note: Average GFR for 30-39 years old:107 mL/min/1.73sq mChronic Kidney Disease:<60 mL/min/1.73sq mKidney failure:<15 mL/min/1.73sq meGFR calculated using average adult body mass. Additional eGFR calculatoravailable at:http://www.Urgent.ly.com/multiple_crcl_2012.htmResponsible Observer: DIANA A UTOFILE (2113)Abs. Basophil0.05 k/uL(0.00-0.20)[facility] Work Phone: Comment on above:Note: Responsible Observer: XNV AUTOFILE (2006)Abs.Imm.Granulocyte<0.03 k/uL(0.00-0.30)[facility] Work Phone: Comment on above:Note: Responsible Observer: XNV AUTOFILE (3018)Abs.Neutrophil (Seg)3.47 k/uL(1.50-8.10)[facility] Work Phone: Comment on above:Note: Responsible Observer: XNV AUTOFILE (3018)Albumin/Glob Ratio1.5(1.0-2.5)[facility] Work Phone: Comment on above:Note: Responsible Observer: CEEV AUTOFILE (3003)Alkaline Phos71 U/L(40-129)[facility] Work Phone: Comment on above:Note: Responsible Observer: CEEV AUTOFILE (3003)Auto Diff PerformedNOT REPORTEDFall River Emergency Hospital Work Phone: BUN/CRE RatioNOT REPORTED(9-20)[facility] Work Phone: Cholesterol,HDL60 mg/dL(>40)[facility] Work Phone: Comment on above:Note: HDL Guidelines:<40 Fbadyvcqpqs24-13 Borderline>59 DesirableResponsible Observer: CEEV AUTOFILE (3003)Cholesterol,RRC739 mg/dLHigh(0-130)[facility] Work Phone: Comment on above:Note: LDL Guidelines:<100 Ptedqwtha610-789 Near to/above Lnlkfzsqx526-751 Borderline>159 UndesirableDirect (measured) LDL and calculated LDL are not interchangeable tests.Responsible Observer: CEEV AUTOFILE (3003)Cholesterol,VLDLNOT REPORTED mg/dL(1-30)[facility] Work Phone: Cholesterol.total/Cholesterol in HDL [Mass ratio]3.9 {ratio}(<5)[facility] Work Phone: Comment on above:Note: Responsible Observer: CEEV AUTOFILE (3003)Erythrocyte distribution width (RBC) [Ratio]12.4 %(11.8-14.4) [facility] Work Phone: Comment on above:Note: Responsible Observer: XNV AUTOFILE (3018)GFR, Amer>60 mL/min(>60)[facility] Work Phone: Comment on above:Note: Responsible Observer: CEEV AUTOFILE (3003)GFR,non Amer>60 mL/min(>60)[facility] Work Phone: Comment on above:Note: Responsible Observer: CEEV AUTOFILE (3003)HCV Genotype, TVE9vAtksfiFall River Emergency Hospital Work Phone: Comment on above:Note: (NOTE)INTERPRETIVE INFORMATION: Hepatitis C GenotypingHepatitis C Viral RNA is tested using reverse transcriptionpolymerase chain reaction (RT-PCR) to amplify a specific portionof the 5' untranslated region (5' UTR) of the viral genome. Theamplified nucleic acid is sequenced bi-directionally usingdye-terminator chemistry ([employer]). Sequencing data is compared to adatabase of [...] Type 1.Test developed and characteristics determined by [employer]. See Compliance Statement B: [employer]/CSP[employer] by [employer],[address] [place] [address] hkw.[employer], Remi Harman MD, Lab. DirectorResponsible Observer: LAB RIAN (0603)HCV RNA,Quant,PCRSee NoteFall River Emergency Hospital Work Phone: Comment on above:Note: Specimen Description .PLASMASpecial Requests NOT REPORTEDDirect Exam HCV RNA DETECTED [id number]/ML (6.49 LOG IU/ML) This test is a [...] DepartmentReport Status FINAL 05/29/2019Responsible Observer: JULIET ACOSTA (7910)HCV Viral LoadNOT REPORTEDFall [facility] Hospital Work Phone: Herpes Type I, IgG6.81High(<0.91)[facility] Work Phone: Comment on above:Note: Reference Range:<=0.90 Negative0.91-1.09 Equivocal>=1.10 PositiveResponsible Observer: DANTE QURESHI (189) Herpes Type I/II,IgM1.05High(<0.91)[facility] Work Phone: Comment on above:Note: Reference Range:<=0.90 Negative0.91-1.09 Equivocal>=1.10 PositiveIf positive, an IgM result indicates a current or recent infection. This testdoes not differentiate type I from type II. No current reference test isavailable for this. If IgG tests are ordered and are negative, considerretesting in 2 to 3 weeks.Responsible Observer: DANTE QURESHI (189)Herpes Type II, IgG0.76(<0.91)[facility] Work Phone: Comment on above:Note: Reference Range:<=0.90 Negative0.91-1.09 Equivocal>=1.10 PositiveResponsible Observer: DANTE QURESHI (189) HIV Ag/AbNONREACTIVE(NR)[facility] Work Phone: Comment on above:Note: No laboratory evidence of HIV infection. If acute HIV infection is suspected,consider testingfor HIV-1 RNA.Responsible Observer: JEREMY SAEZ (4270)Immature granulocytes (Bld) [#/Vol] 0 %(0)[facility] Work Phone: Comment on above:Note: Responsible Observer: XNV AUTOFILE (3017)MCHC (RBC) [Mass/Vol]33.0 g/dL(28.4-34.8)[facility] Work Phone: Comment on above:Note: Responsible Observer: XNV AUTOFILE (3017)Performing Lab:see noteFall River Emergency Hospital Work Phone: Comment on above:Note: [facility] [address] [facility] [address] Note: [facility] [address] [facility] [address] Yeylnbfc mean volume (Bld) [Entitic vol]9.9 fL (8.1-13.5)[facility] Work Phone: Comment on above:Note: Responsible Observer: XNV AUTOFILE (3017)Reported PhysiciansSee NoteFall River Emergency Hospital Work Phone: Comment on above:Note: Reported Physicians:Ordering: JasonNeliieAttending: Jason, CassieReferring: Jason, CassieSegmented neutrophils/100 WBC (Bld)48 %(36-65)[facility] Work Phone: Comment on above:Note: Responsible Observer: XNV AUTOFILE (3017)Staging:NOT REPORTEDFall River Emergency Hospital Work Phone: T.pallidum Ab ScreenNONREACTIVE(NR)[facility] Work Phone: Comment on above:Note: T. pallidum antibodies are not detected.There is no serological evidence of infection with T.pallidum (early primarysyphilis cannot be excluded). Retest in 2-4 weeks if syphilis is clinicallysuspect.Responsible Observer: JEREMY SAEZ (4729)Thyroid Stim. Horm. 2.51 mIU/L(0.30-5.00)[facility] Work Phone: Comment on above:Note: Responsible Observer: DIANA AUTOFILE (3003)WBC MorphologyNOT REPORTEDFall River Emergency Hospital Work Phone: Vital Signs Date TimeVital SignValuePerforming CaflfceriCfpzfrmj27-68-3434 07:30-0400Body jtocmuoqkcj50.1 [degF]Randy Bosch MD Work Phone: 1(674)[address] [place], [place] 1891310-30-2025 07:30-0400 Diastolic blood tmkhegkw25 mm[Hg]Randy Bosch MD Work Phone: 1(085)[address] [place], [place] 1891310-30-2025 07:30-0400 Heart rate65 /Jerod Bosch MD Work Phone: 1(757)[address] [place], [place] 1891310-30-2025 07:30-0400 Respiratory rate18 /Jerod Bosch MD Work Phone: 1(855)[address] [place], [place] 1891310-30-2025 07:30-0400 SaO2% (BldA) [Mass fraction]96 %Randy Bosch MD Work Phone: 1(519)[address] [place], [place] 1891310-30-2025 07:30-0400 Systolic blood mm[Hg]Randy Bosch MD Work Phone: 1(475)[address] [place], [place] 1891310-29-2025 14:15-0400 Body gsecxd032.64 cmRandy Bosch MD Work Phone: 1(527)[address] [place], [place] 1891310-28-2025 22:47-0400 Body azvjey71.4 kgRandy Bosch MD Work Phone: 1(185)[address] [place], [place] 1891310-28-2025 19:03-0400 Body ixlkwi542.64 cmRandy Bosch MD Work Phone: 1(041)[address] [place], [place] 1891310-28-2025 19:03-0400 Body aaqrkxwoqad07.4 [degF]Radny Bosch MD Work Phone: 1(617)[address] [place], [place] 1891310-28-2025 19:03-0400 Body ewausi01.4 kgDoisabel Bosch MD Work Phone: 1(419)[facility]-[address] [place], [place] 2388710-28-2025 19:03-0400 Diastolic blood rwufjpvz45 mm[Hg]Randy Bosch MD Work Phone: 1(419)[address] [place], [place] 1891310-28-2025 19:03-0400 Heart rate97 /Jerod Bosch MD Work Phone: 1(419)[address] [place], [place] 1891310-28-2025 19:03-0400 Respiratory rate18 /Jerod Bosch MD Work Phone: 1(419)[address] [place], [place] 1891310-28-2025 19:03-0400 SaO2% (BldA) [Mass fraction]100 %Randy Bosch MD Work Phone: 1(419)[address] [place], [place] 1891310-28-2025 19:03-0400 Systolic blood lvwwujlx184 mm[Hg]Randy Bosch MD Work Phone: 1(419)[address] [place], [place] 1891310-20-2024 15:30-0400 Body feedechlctm51 [degF]MD Randy Bosch Work Phone: 1(419)[address] [place], [place] 1891310-20-2024 15:30-0400 Diastolic blood zdvfgvxy11 mm[Hg]MD Randy Bosch Work Phone: 1(419)[address] [place], [place] 1891310-20-2024 15:30-0400 Heart rate75 /minMD Randy Bosch Work Phone: 1(419)[address] [place], [place] 1891310-20-2024 15:30-0400 Respiratory rate16 /minMD Randy Bosch Work Phone: 1(419)[address] [place], [place] 1891310-20-2024 15:30-0400 SaO2% (BldA) [Mass fraction]98 %MD Randy Bosch Work Phone: 1(419)[address] [place], [place] 1891310-20-2024 15:30-0400 Systolic blood rwtuydja803 mm[Hg]MD Randy Bosch Work Phone: 1(419)[address] [place], [place] 1891310-20-2024 06:00-0400 Body .9 kgMD Randy Hoy Work Phone: 1(612)[address] [place], [place] 1891310-19-2024 10:00-0400 Inhaled oxygen vwhjettgdouun31 %MD Randy Bosch Work Phone: 1(503)[address] [place], [place] 1891310-19-2024 00:00-0400 Inhaled oxygen flow rate2 L/minMD Randy Bosch Work Phone: 1(291)[address] [place], [place] 1891310-18-2024 12:20-0400 Body vjiuuo893.64 cmMD Randy Ruthy Work Phone: 1(572)[address] [place], [place] 1891310-13-2024 18:50-0400 Body ulnrsb430.45 cmMD Randy Hoy Work Phone: 1(683)[address] [place], [place] 1891310-13-2024 18:50-0400 Body eyufcpmhyfw38.6 [degF]MD Randy Bosch Work Phone: 1(440)[address] [place], [place] 1891310-13-2024 18:50-0400 Body ilwmgb70 kgMD Randy Bosch Work Phone: 1(907)[address] [place], [place] 1891310-13-2024 18:50-0400 Diastolic blood uzjvymmb91 mm[Hg]MD Randy Bosch Work Phone: 1(117)[address] [place], [place] 1891310-13-2024 18:50-0400 Heart ximp189 /minMD Randy Ruthy Work Phone: 1(576)[address] [place], [place] 1891310-13-2024 18:50-0400 Respiratory rate16 /minMD Randy Bosch Work Phone: 1(630)[address] [place], [place] 1891310-13-2024 18:50-0400 SaO2% (BldA) [Mass fraction]98 %MD Randy Bosch Work Phone: 1(925)[address] [place], [place] 1891310-13-2024 18:50-0400 Systolic blood jcicaqhy116 mm[Hg]MD Randy Bosch Work Phone: 1(141)[address]05-31-2024 18:46-0400 Body ictmvqustka76.6 [degF]Addi Polanco DO Work Phone: GFQ [facility]05-31-2024 18:46-0400Body mmunqh15.5 kgAlejulian Polanco DO Work Phone: bon [facility]05-31-2024 18:46-0400Diastolic blood mm[Hg]Addi Polanco DO Work Phone: BKARLA [facility]05-31-2024 18:46-0400Heart mjyc278 /minAddi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 ProviderActiveStart: June 15, 2025 Ranjan August ProviderActiveStart: June 15, 2025 Team Status: Active Member Role/Relationship Status Dates Randy Bosch MD Primary Care Provider Active Start: June 15, 2025 Betty Maurer ProviderActiveStart: June 15, 2025 Tristen August ProviderActiveStart: June 15, 2025 Ranjan August ProviderActiveStart: June 15, 2025 Fernando Bloom MDOther ProviderActiveStart: June 15, 2025 Goals (unrecognized section and content) Goals may [...] BE BASED ON THE PRIMARY CLINICAL RECORDS. [facility]. provides no warranty or guarantee of the accuracy or completeness of information in this document.
== END 2025-06-23 15:48 | disposition home or self-care (01) ==
LOC: LAB 15:47
PROVIDERS: PCP Family Medicine; Visit Provider Family Medicine
DX: G47.00 Insomnia, unspecified (principal)
CPT/HCPCS: 36415; 87177; 87209; 89055; G0328